=== PATIENT | male | born 1940 | race Caucasian/White ===

== ENCOUNTER 2016-10-10 09:09 | Outpatient (CLI) | payer MEDICARE ==
[~2016-10-10] VITALS: Ht 190.5 cm; Wt 111.7 kg
[~2016-10-10 09:09] MED LIST: ADV1DS IH; ALBU8.5H4 IH; ASP325T PO; ASP81CT; CEPH500C PO; CPR500T PO; CYCL10TA9 PO; DOXA4TAB2; FNST5T; IBUPROFEN; METR500T PO; MMT17NA; MULT1TAB63; OLME20TA5 PO; PRD10T PO; SULF1TAB7 PO; TRAM50TA2 PO; TYLENOL PM; [UNRECOGNIZED DRUG - REMARK]
--- OUTSIDE RECORDS SUMMARY | 2016-10-10 09:13 | XMS REPORT | Continuity of Care Document ---
Author Author [facility] Organization [facility] Address Unknown Phone Unavailable Care Team Providers Care Roll Form Operator Name Role Phone Payton Olivas PCP [phone] Source Comments Some departments are not documenting in the electronic medical record. If you do not see the information that you expected, contact Release of Information in the Health Information Management department at [phone] for further assistance in locating additional records.[facility] Active Allergies and Adverse Reactions No Known Allergies Current Medications Prescription Sig. Disp. Refills Start End Date Status Date fluticasone/salmeterol Inhale 1 Puff by mouth Active (ADVAIR) 250/50 mcg Every 12 Hours. inhalation disk doxazosin (CARDURA) 4 mg Take 1 Tab by mouth Active tablet Daily. predniSONE (DELTASONE) 10 Take 1 Tab by mouth Active mg tablet Daily. fluticasone (FLONASE) 50 Insert 2 Sprays into nose Active mcg/Actuation nasal spray as directed At Bedtime Daily. albuterol (VENTOLIN HFA, Inhale 2 Puffs by mouth Active PROAIR HFA) 90 Daily as needed for mcg/Actuation inhaler Wheezing. aspirin 325 mg tablet Take 1 Tab by mouth 0 0 07/17/20 Active Daily. 09 hyoscyamine (LEVSIN/SL) 1 Tab Every 4 Hours as 30 1 20 Active 0.125 mg tablet needed. 09 levofloxacin (LEVAQUIN) Take 1 Tab by mouth 21 0 07/17/20 Active 250 mg tablet Daily. 09 oxybutynin XL (DITROPAN Take 1 Tab by mouth 20 0 07/17/20 Active XL) 15 mg tablet Daily. 09 oxycodone/acetaminophen Take 1-2 Tabs by mouth 40 0 07/17/20 Active (PERCOCET) 5/325 mg Every 4 Hours as needed 09 tablet for Pain. polymyxin/bacitracin/fina/ Apply to affected area 15g 0 07/17/20 Active HC (CORTISPORIN) 1 % Three Times Daily. 09 topical ointment senna/docusate Take 2 Tabs by mouth 60 0 07/17/20 Active (SENOKOT-S) 8.6/50 mg Daily. 09 tablet bisacodyl (DULCOLAX) 10 Insert or Apply 1 10 3 07/17/20 Active mg rectal suppository Suppository to rectal 09 area as directed Daily as needed. Abdominal discomfort or constipation. Active Problems Problem Noted Date Prostate cancer ([facility]) 07/17/2009 Atrial flutter ([facility]) 05/26/2009 Immunizations Name Dates Previously Given Next Due FLU VACCINE >3YO 07/16/2009 (Preservative Free) Pneumococcal Vaccine 07/16/2009 (23-[place] Adult) Social History Tobacco Use Types Packs/Day Years Used Date Never Smoker Alcohol Use Drinks/Week oz/Week Comments No Last Filed Vital Signs Vital Sign Reading Time Taken Blood Pressure 135/68 07/17/2009 12:00 PM CDT Pulse 63 07/17/2009 12:00 PM CDT Temperature 36.6 C (97.9 F) 07/17/2009 12:00 PM CDT Respiratory Rate - - Height 1.854 m (6' 1") 07/15/2009 11:00 AM CDT Weight 113.944 kg (251 lb 3.2 07/15/2009 11:00 AM CDT oz) Body Mass Index 33.15 07/15/2009 11:00 AM CDT Oxygen Saturation 96% 07/17/2009 12:00 PM CDT Plan of Care Health Maintenance Due Date Last Done Comments Physical (Comprehensive) 01/06/1947 Exam Pertussis Vaccine 01/06/1951 Tetanus Vaccine 01/06/1957 Shingles Vaccine 2000 Prevnar/Pneumovax (#2) 07/16/2010 07/16/2009 Influenza Vaccine 05/25/2015 07/16/2009 Results from Last 3 Months Not on file
[2016-10-10 09:23] VITALS: BP 142/69
[2016-10-10] MEDS ORDERED: RT-ALBUINH IH (09:38)
[2016-10-10] MEDS ORDERED: HYDR-3820 PO (09:38)
[2016-12-12] MEDS ORDERED: PROC5TAB52 PO (09:28)
[2016-12-12] MEDS ORDERED: FLUT1DIS26 INH (09:28)
[2016-12-12] MEDS ORDERED: RT-ALBUINH INH (09:28)
[2016-12-12] MEDS ORDERED: HYDR-3820 PO (09:28)
[2016-12-13] MEDS ORDERED: TAMS0.4C98 PO (14:00)
[2016-12-13] MEDS ORDERED: PROC-1 PO (14:00)
[2016-12-13] MEDS ORDERED: HYDR-3820 PO (14:00)
[2016-12-15] MEDS ORDERED: LEVO500T2 PO (09:33)
== END 2016-10-10 09:35 | disposition home or self-care (01) ==
LOC: PREOP 09:09
PROVIDERS: ATTEND Surgery
DX: Z01.818 Encounter for other preprocedural examination (principal); Z11.2 Encounter for screening for other bacterial diseases; L98.9 Disorder of the skin and subcutaneous tissue, unspecified
CPT/HCPCS: 87081

== ENCOUNTER 2016-10-13 09:10 | Day surgery (SDC) | payer MEDICARE ==
[~2016-10-13] VITALS: Ht 190.5 cm; Wt 111.7 kg
[~2016-10-13 09:10] MED LIST changes: +HYDR-3820 PO; +RT-ALBUINH IH; +ceFAZolin 2 GM IV (SDC ONLY) 50 ML ONE
--- OUTSIDE RECORDS SUMMARY | 2016-10-13 09:13 | XMS REPORT | Continuity of Care Document ---
Author Author [facility] Organization [facility] Address Unknown Phone Unavailable Care Team Providers Care Deputy Program Manager Name Role Phone Payton Olivas PCP [phone] Source Comments Some departments are not documenting in the electronic medical record. If you do not see the information that you expected, contact Release of Information in the Health Information Management department at [phone] for further assistance in locating additional records.[facility] Active Allergies and Adverse Reactions No Known [...] Tab Every 4 Hours as 30 1 07/17/20 Active 0.125 mg tablet needed. 09 levofloxacin [...] Active Problems Problem Noted Date Prostate cancer ([facility]) 07/17/2009 Atrial flutter ([facility]) 05/26/2009 Immunizations Name Dates Previously Given Next [...]
--- OUTSIDE RECORDS SUMMARY | 2016-10-13 09:15 | XMS REPORT | Continuity of Care Document ---
Author Author [facility] Organization [facility] Address Unknown Phone Unavailable Care Team Providers Care Plastic Sheeting Cutter Name Role Phone Payton Olivas PCP [phone] Source Comments Some departments are not documenting in the electronic medical record. If you do not see the information that you expected, contact Release of Information in the Health Information Management department at [phone] for further assistance in locating additional records.[facility] Active Allergies and Adverse Reactions No Known [...] Problem Noted Date Prostate cancer ([facility]) 07/17/2009 Atrial flutter ([facility]) 05/26/2009 Immunizations Name Dates Previously [...]
[2016-10-13] MEDS ORDERED: CATHETER FLUSH 10 ML SYR IV PRN (09:30)
[2016-10-13] MEDS ORDERED: CEFAZOLIN 2 GM/50 ML IV ONE (09:30)
[2016-10-13] MEDS ORDERED: LACTATED RINGERS 1,000 ML IV PRN (09:31)
[2016-10-13 09:43] VITALS: BP 155/84
--- NOTE | 2016-10-13 10:02 | Progress Note-Pre Operative ---
Pre-Operative Progress Note H&P Reviewed The H&P was reviewed, patient examined and no changes noted. Date H&P Reviewed: Oct 13, 2016 Time H&P Reviewed: 10:02 Pre-Operative Diagnosis: lesion right cheek ANNIE BRASHER MD Oct 13, 2016 10:02 am
[2016-10-13] MEDS ORDERED: BUP/EPI 0.25% 1:200,000 (MARCAINE) 30 ML VIAL ONE (10:06)
[2016-10-13] MEDS ORDERED: MIDAZOLAM 2 MG/2 ML (VERSED) VIAL ONE (10:11)
[2016-10-13] MEDS ORDERED: fentaNYL INJECTION 100 MCG/2 ML AMP ONE (10:11)
[2016-10-13] MEDS ORDERED: proPOfol 200 MG/20 ML (DIPRIVAN) VIAL IV ONE ×2 (10:11→10:48)
[2016-10-13] MEDS ORDERED: LACTATED RINGERS 1,000 ML IV ONE (10:15)
[2016-10-13] MEDS ORDERED: TRAM50TA2 PO (11:00)
--- NOTE | 2016-10-13 11:00 | Progress Note-Post Operative ---
Post-Operative Progess Note Pre-Operative Diagnosis lesion right cheek Post-Operative Diagnosis same Post-Op Procedure Note Date of Procedure: Oct 13, 2016 Name of Procedure: excision Anesthesia Type sedation with local Estimated blood loss (mL): minimal Specimen(s) collected skin lesion from right cheek ANNIE BRASHER MD Oct 13, 2016 11:00 am
--- NOTE | 2016-10-13 11:01 | Discharge Inst-Simple/Standard ---
Discharge Inst-Standard Discharge Medications New, Converted or Re-Newed RX: RX on Chart Patient Instructions/Follow Up Plan of Care/Instructions/FU: dressings off in 48 hours. Follow-up with my nurse in 10 days for suture Activity as Tolerated: Yes Discharge Diet: No Restrictions ANNIE BRASHER MD Oct 13, 2016 11:01 am
[2016-10-13 11:45] VITALS: BP 138/73
[2016-10-13 12:15] VITALS: BP 125/79
[2016-10-13 12:45] VITALS: BP 125/79
--- NOTE | 2016-10-13 12:45 | Anesthesia-General Post-Op ---
MAC Patient Condition Mental Status/LOC: Same as Preop Cardiovascular: Satisfactory Nausea/Vomiting: Absent Respiratory: Satisfactory Pain: Controlled Complications: Absent Post Op Complications Complications None Follow Up Care/Instructions Patient Instructions None needed. Anesthesiology Discharge Order Discharge Order Patient is doing well, no complaints, stable vital signs, no apparent adverse anesthesia problems. No complications reported per nursing. ASHLEY ROJAS DO Oct 13, 2016 12:45
--- NOTE | 2016-10-14 08:21 | OPERATIVE REPORT ---
PROCEDURE PHYSICIAN: ANNIE BRASHER DATE OF PROCEDURE: 10/13/2016 PREOPERATIVE DIAGNOSIS: 2 cm lesion of the right cheek. 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 OPERATION: Excision with frozen section. SURGEON: Dr. Brasher. ANESTHESIA: Sedation with local. BLOOD LOSS: Minimal. FLUIDS: 300 mL of crystalloid. TYPE OF WOUND: Type I (clean wound). INDICATION FOR PROCEDURE: This gentleman presented with a raised lesion about 2 cm in diameter involving the right cheek, having the appearance of a carcinoma. He was offered excision with frozen section to confirm the diagnosis and ensure negative margins, should a carcinoma be confirmed. Informed consent was obtained after reviewing the operative details and complications of wound infection, hematoma and recurrence. DESCRIPTION OF PROCEDURE: He was placed supine on the operative table and our anesthesiologist administered sedation, monitoring his vital signs. Prophylactic antibiotics were administered intravenously. Right cheek was prepared and draped in the usual sterile manner. Local anesthesia was achieved using 0.25% Marcaine with epinephrine. A 5 cm elliptical incision was made and the lesion excised down to the subcutaneous tissue. It was oriented with silk sutures and sent for histologic examination. The pathologist confirmed a squamous cell carcinoma with negative margins. Hemostasis was achieved using cautery and the incision closed using interrupted 6-0 nylon sutures. Job ID: [id number] Dictated Date: 10/13/2016 12:20:14 Supervisor Type Disk Quality Control Date: 10/14/2016 08:17:58 / jonnie BURK
[2016-12-12] MEDS ORDERED: PROC5TAB52 PO (09:28)
[2016-12-12] MEDS ORDERED: FLUT1DIS26 INH (09:28)
[2016-12-12] MEDS ORDERED: HYDR-3820 PO (09:28)
[2016-12-12] MEDS ORDERED: RT-ALBUINH INH (09:28)
[2016-12-13] MEDS ORDERED: HYDR-3820 PO (14:00)
[2016-12-13] MEDS ORDERED: TAMS0.4C98 PO (14:00)
[2016-12-13] MEDS ORDERED: PROC-1 PO (14:00)
[2016-12-15] MEDS ORDERED: LEVO500T2 PO (09:33)
== END 2016-10-13 12:45 | disposition home or self-care (01) ==
LOC: SDC 09:10
PROVIDERS: ATTEND Surgery
DX: C44.320 Squamous cell carcinoma of skin of unspecified parts of face (principal)

== ENCOUNTER → 2016-11-23 | Outpatient (CLI) | payer MEDICARE ==
[~2016-11-23] MED LIST changes: +CIPR-225 PO; +FLUT1DIS26 INH; +HYDR-3876 PO; +KETO10TA PO; +LEVO500T2 PO; +NITR-65 PO; +ONDN4T PO; +PROC-1 PO; +PROC5TAB52 PO; +RT-ALBUINH INH; +TAMS0.4C98 PO; -ceFAZolin 2 GM IV (SDC ONLY) 50 ML ONE
--- OUTSIDE RECORDS SUMMARY | 2016-11-23 16:51 | XMS REPORT | Continuity of Care Document ---
Author Author [facility] Organization [facility] Address Unknown Phone Unavailable Care Team Providers Care Speech Therapist Name Role Phone Payton Olivas PCP [phone] Source Comments Some departments are not documenting in the electronic medical record. If you do not see the information that you expected, contact Release of Information in the Health Information Management department at [phone] for further assistance in locating additional records.[facility] Active Allergies and Adverse Reactions No [...] Active Problems Problem Noted Date Prostate cancer ([facility]) 07/17/2009 Atrial flutter ([facility]) 05/26/2009 Immunizations Name Dates Previously [...]
--- NOTE | 2016-11-23 18:29 | Diagnostic Imaging Report ---
INDICATION: A 76-year-old male with left flank pain. COMPARISONS: CT of the abdomen and pelvis dated 03/27/2013. FINDINGS: KUB shows the visualized right lung base to be clear. There is suggestion of some left basilar alveolar infiltrates. Bowel gas pattern shows scattered gas in the small and large bowel with gas seen to the rectum. There is a moderate amount of fecal material in the colon to the rectum. There is a 15 mm stone in the left kidney possibly an inferior pole calyx. A 4-5 mm stone is projected over the inferior pole. A 17 mm calculus is projected over the left superior pole calyx. There are subtle areas of increased attenuation overlying the expected region of the right kidney. Right hydronephrosis is not excluded. IMPRESSION: 1. Multiple left renal calculi largest measuring 17 mm. 2. Areas of ill-defined increased attenuation projected over the expected region of the right kidney. Given these findings, a nonenhanced CT of abdomen and pelvis would be of further value to better assess these findings. Dictated by: Dictated on workstation # [id number]
== END ==
LOC: RAD 16:45
PROVIDERS: ATTEND Nurse Practitioner Family
DX: N20.0 Calculus of kidney (principal); R93.49 Abnormal radiologic findings on diagnostic imaging of other urinary organs
CPT/HCPCS: 74000

== ENCOUNTER → 2016-11-27 | Outpatient (CLI) | payer MEDICARE ==
--- OUTSIDE RECORDS SUMMARY | 2016-11-27 10:56 | XMS REPORT | Continuity of Care Document ---
Author Author [facility] Organization [facility] Address Unknown Phone Unavailable Care Team Providers Care Structural Steel Erector Name Role Phone Payton Olivas PCP [phone] Source Comments Some departments are not documenting in the electronic medical record. If you do not see the information that you expected, contact Release of Information in the Health Information Management department at [phone] for further assistance in locating additional records.[facility] Active Allergies and Adverse Reactions [...] Active Problems Problem Noted Date Prostate cancer ([facility]) 07/17/2009 Atrial flutter ([facility]) 05/26/2009 Immunizations Name Dates Previously Given Next [...]
--- NOTE | 2016-11-27 16:25 | Diagnostic Imaging Report ---
Abdomen at 11:14 a.m. INDICATION: Left nephrolithiasis. As noted on the prior exam of , there are multiple calcific densities overlying the left renal contour including a 1.4 cm calculus overlying the midportion of the left kidney. This calculus is also present on the prior CT abdomen/pelvis exam of 03/27/2013. The 4-5 mm calculus projecting over the inferior pole of left kidney seen previously is also again evident and no different. There is no sign of a calculus along the expected path of left ureter. There is no evidence for nephrolithiasis on the right either. The previous study did suggest there were ill-defined areas of increased density projecting over the right kidney. There still appears to be a 2.5 cm rounded area of increased density overlying the midportion of right kidney. I suspect that this is secondary to superimposition. Even so, I would concur with recommendation of previous exam that CT of the abdomen and pelvis be performed to exclude a renal mass. The overall appearance of the abdomen is otherwise no different. IMPRESSION: 1. The calculi overlying the left kidney seen previously are again visualized and unchanged. There is no sign of a calculus along the expected path of the left ureter. 2. There is no evidence for nephrolithiasis on the right. The rounded area of increased density overlying the right kidney is more likely due to superimposition than to a mass. Recommendations as above. Dictated by: Dictated on workstation # [id number]
== END ==
LOC: RAD 10:52
PROVIDERS: ATTEND Nurse Practitioner Family
DX: R10.84 Generalized abdominal pain (principal)
CPT/HCPCS: 74000

== ENCOUNTER → 2016-11-28 | Outpatient (CLI) | payer MEDICARE ==
--- OUTSIDE RECORDS SUMMARY | 2016-11-28 07:44 | XMS REPORT | Continuity of Care Document ---
Author Author [facility] Organization [facility] Address Unknown Phone Unavailable Care Team Providers Care Dog Handler Or Trainer Name Role Phone Payton Olivas PCP [phone] Source Comments Some departments are not documenting in the electronic medical record. If you do not see the information that you expected, contact Release of Information in the Health Information Management department at [phone] for further assistance in locating additional records.[facility] Active Allergies and Adverse Reactions [...] Active Problems Problem Noted Date Prostate cancer ([facility]) 07/17/2009 Atrial flutter ([facility]) 05/26/2009 Immunizations Name Dates Previously Given Next [...]
--- NOTE | 2016-11-28 12:56 | Diagnostic Imaging Report ---
PROCEDURE: CT abdomen and pelvis without contrast. TECHNIQUE: Multiple contiguous axial images were obtained through the abdomen and pelvis without the use of intravenous contrast. INDICATION: Left flank pain. COMPARISON: 03/27/2013. FINDINGS: There are two nonobstructing left-sided kidney stones, each increased in size. The largest measures a long axis of 13 mm today previously 11 mm. The smallest inferiorly measures 4 mm today, 2 mm on prior. There is no hydronephrosis. Some chronic induration of the perinephric fat I believe scarring is a stable finding. A right-sided renal cyst increased 5.5 cm today, previously 4.4 cm. The spleen is unremarkable. The gallbladder is surgically absent. The liver is unremarkable. The adrenals are negative. The pancreas is unremarkable. Aorta is atherosclerotic and tortuous but nonaneurysmal and stable. There is extensive noninflamed diverticulosis of the sigmoid. There is poor distention of the unopacified urinary bladder limiting its evaluation. The appendix is visualized and normal. There is no ascites, abscess, hematoma, or other fluid collection. The lung bases and the osseous structures are nonacute. IMPRESSION: 1. Two nonobstructive left kidney stones have increased in size from the study of 2012. The right kidney is without calculus but shows an increasing cyst. Remaining findings stable and chronic. Dictated by: Dictated on workstation # [id number]
== END ==
LOC: RAD 07:39
PROVIDERS: ATTEND Urology
DX: N20.0 Calculus of kidney (principal)
CPT/HCPCS: 74176

== ENCOUNTER 2016-11-29 07:07 | Day surgery (SDC) | payer MEDICARE ==
[~2016-11-29] VITALS: Ht 190.5 cm; Wt 106.7 kg
[~2016-11-29 07:07] MED LIST changes: -CIPR-225 PO; -FLUT1DIS26 INH; -HYDR-3876 PO; -KETO10TA PO; -LEVO500T2 PO; -NITR-65 PO; -ONDN4T PO; -PROC-1 PO; -PROC5TAB52 PO; -RT-ALBUINH INH; -TAMS0.4C98 PO
--- OUTSIDE RECORDS SUMMARY | 2016-11-29 07:10 | XMS REPORT | Continuity of Care Document ---
Author Author [facility] Organization [facility] Address Unknown Phone Unavailable Care Team Providers Care Channel Machine Operator Name Role Phone Payton Olivas PCP [phone] Source Comments Some departments are not documenting in the electronic medical record. If you do not see the information that you expected, contact Release of Information in the Health Information Management department at [phone] for further assistance in locating additional records.[facility] Active Allergies and Adverse Reactions No [...] Active Problems Problem Noted Date Prostate cancer ([facility]) 07/17/2009 Atrial flutter ([facility]) 05/26/2009 Immunizations Name Dates Previously [...]
--- NOTE | 2016-11-29 07:11 | Progress Note-Pre Operative ---
Pre-Operative Progress Note H&P Reviewed The H&P was reviewed, patient examined and no changes noted. Date H&P Reviewed: Nov 29, 2016 Time H&P Reviewed: 07:12 Pre-Operative Diagnosis: LT RENAL STONES NATE BARRETO MD Nov 29, 2016 7:11 am
--- OUTSIDE RECORDS SUMMARY | 2016-11-29 07:11 | XMS REPORT | Continuity of Care Document ---
Author Author [facility] Organization [facility] Address Unknown Phone Unavailable Care Team Providers Care Release And Technical Records Clerk Name Role Phone Payton Olivas PCP [phone] Source Comments Some departments are not documenting in the electronic medical record. If you do not see the information that you expected, contact Release of Information in the Health Information Management department at [phone] for further assistance in locating additional records.[facility] Active Allergies and Adverse Reactions No [...] Problems Problem Noted Date Prostate cancer ([facility]) 07/17/2009 Atrial flutter ([facility]) 05/26/2009 Immunizations Name Dates Previously Given Next [...]
--- NOTE | 2016-11-29 07:12 | Progress Note-Pre Operative ---
Pre-Operative Progress Note H&P Reviewed The H&P was reviewed, patient examined and no changes noted. Date H&P Reviewed: Nov 29, 2016 Time H&P Reviewed: 07:11 Pre-Operative Diagnosis: LT RENAL STONES NATE BARRETO MD Nov 29, 2016 7:12 am
--- NOTE | 2016-11-29 07:13 | Progress Note-Post Operative ---
Post-Operative Progess Note Pre-Operative Diagnosis LT RENAL STONES Post-Operative Diagnosis SAME Post-Op Procedure Note Date of Procedure: Nov 29, 2016 Name of Procedure: LT ESWL Anesthesia Type GENERAL NATE BARRETO MD Nov 29, 2016 7:13 am
--- NOTE | 2016-11-29 07:16 | Discharge Inst-Urology ---
Discharge Inst-Urology Discharge Medications New, Converted, or Re-newed RX: RX on Chart Patient Instructions/Follow Up Plan Please make appointment to been seen in office in 2 weeks. KUB prior to it KUB on way home Post ESWL instructions Increase oral fluids for 48 hours and then as needed. Diet and Activity as tolerated. If questions or concerns contact your physician Or seek help at emergency department. NATE BARRETO MD Nov 29, 2016 7:16 am
[2016-11-29] MEDS ORDERED: NS (IVPB) 50 ML ONE (07:30)
[2016-11-29] MEDS ORDERED: ceFAZolin 1,000 MG (ANCEF) VIAL ONE (07:30)
[2016-11-29] MEDS ORDERED: ceFAZolin 1 GM/NS 50 ML IVPB IV ONE ×2 (07:45)
[2016-11-29] MEDS ORDERED: fentaNYL INJECTION 100 MCG/2 ML AMP ONE ×2 (08:00→09:09)
--- NOTE | 2016-11-29 08:01 | Diagnostic Imaging Report ---
INDICATION: Preop renal stone disease. COMPARISON: 11/27/2016. FINDINGS: The large dominant stone projecting over the mid to lower pole of the left kidney measures 11.3 mm in transverse diameter unchanged. Smaller more subtle calculus overlying its lower pole is roughly 3-4 mm. Bowel gas pattern is nonspecific. There is rightward convexity scoliotic lumbar spondylosis and surgical clips in the pelvis. IMPRESSION: Left-sided renal stone burden unchanged radiographically when compared to prior. Dictated by: Dictated on workstation # [id number]
[2016-11-29] MEDS ORDERED: LACTATED RINGERS 1,000 ML IV PRN (08:07)
[2016-11-29] MEDS ORDERED: fentaNYL INJECTION 100 MCG/2 ML AMP IV ONE (08:15)
[2016-11-29 08:27] VITALS: BP 142/82
[2016-11-29] MEDS ORDERED: LIDOCAINE PF 2% 10 ML (XYLOCAINE) AMP ONE (09:09)
[2016-11-29] MEDS ORDERED: MIDAZOLAM 2 MG/2 ML (VERSED) VIAL ONE (09:09)
[2016-11-29] MEDS ORDERED: LACTATED RINGERS 1,000 ML IV ONE (09:09)
[2016-11-29] MEDS ORDERED: proPOfol 200 MG/20 ML (DIPRIVAN) VIAL IV ONE (09:09)
[2016-11-29] MEDS ORDERED: ONDANSETRON 4 MG/2 ML (SDV) Z0FRAN ONE (09:09)
[2016-11-29] MEDS ORDERED: SEVOFLURANE (ULTANE) 15 ML INHAL SOLN ONE (09:10)
[2016-11-29] MEDS ORDERED: KETOROLAC 30 MG/ML VIAL ONE (09:10)
[2016-11-29] MEDS ORDERED: FUROSEMIDE 40 MG/4 ML INJ (LASIX) ONE (09:10)
[2016-11-29] MEDS ORDERED: MEPERIDINE (DEMEROL) INJ 50 MG/ML IVP PRN (10:15)
[2016-11-29] MEDS ORDERED: ONDANSETRON 4 MG/2 ML (SDV) Z0FRAN IVP PRN (10:15)
[2016-11-29] MEDS ORDERED: morphine INJ 10 MG/ML 1ML (SYR OR VIAL) IVP PRN (10:15)
[2016-11-29 10:50] VITALS: BP 137/79
[2016-11-29] MEDS ORDERED: TAMS0.4C98 PO (11:04)
[2016-11-29] MEDS ORDERED: HYDR-3876 PO (11:04)
[2016-11-29] MEDS ORDERED: NITR-65 PO (11:04)
[2016-11-29 11:20] VITALS: BP 128/65
[2016-11-29 11:50] VITALS: BP 152/81
--- NOTE | 2016-11-29 17:33 | Diagnostic Imaging Report ---
INDICATION: Postop ESWL. FINDINGS: A supine view of the abdomen demonstrates a conglomeration of calculi with lines running through these which are probably partially macerated calculi. This measures a total of 16 x 8 mm. Punctate calculus are present just inferior to this. Most of the calculi are in the region of the renal pelvis. IMPRESSION: The previous left renal calculi is macerated into a bunch of smaller calculi all clumped together measuring up to 16 x 8 mm. Dictated by: Dictated on workstation # [id number]
--- NOTE | 2016-11-30 09:36 | OPERATIVE REPORT ---
PROCEDURE PHYSICIAN: NATE BARRETO DATE OF PROCEDURE: 11/29/2016 PREOPERATIVE DIAGNOSIS: Left renal stone. POSTOPERATIVE DIAGNOSIS: Left renal stone. OPERATION: Left ESWL. SURGEON: Dr. Barreto. ANESTHESIA: General. COMPLICATIONS: None. PROCEDURE: Under satisfactory general anesthesia, the patient supine on the ESWL table, left big renal stone was localized. Shocks were delivered KV of 5. A total of 2500 shocks fragmented the stone very nicely. The patient received 40 mg of Lasix and 30 mg of Toradol IV at the end of the procedure. He tolerated the procedure and anesthesia well and was sent to recovery room in stable condition. Job ID: [id number] Dictated Date: 11/29/2016 09:51:01 Broiler Chef Or Cook Date: 11/30/2016 09:33:20 / aris
[2016-12-12] MEDS ORDERED: HYDR-3820 PO (09:28)
[2016-12-12] MEDS ORDERED: RT-ALBUINH INH (09:28)
[2016-12-12] MEDS ORDERED: PROC5TAB52 PO (09:28)
[2016-12-12] MEDS ORDERED: FLUT1DIS26 INH (09:28)
[2016-12-13] MEDS ORDERED: HYDR-3820 PO (14:00)
[2016-12-13] MEDS ORDERED: TAMS0.4C98 PO (14:00)
[2016-12-13] MEDS ORDERED: PROC-1 PO (14:00)
[2016-12-15] MEDS ORDERED: LEVO500T2 PO (09:33)
== END 2016-11-29 12:15 | disposition home or self-care (01) ==
LOC: SDC 07:07
PROVIDERS: ATTEND Urology
DX: N20.0 Calculus of kidney (principal)
CPT/HCPCS: 74000; 87081

== ENCOUNTER 2016-12-01 12:15 | Emergency (ER) | payer MEDICARE ==
[~2016-12-01] VITALS: Ht 190.5 cm; Wt 106.7 kg
[~2016-12-01 12:15] MED LIST changes: +HYDR-3876 PO; +NITR-65 PO; +TAMS0.4C98 PO
--- OUTSIDE RECORDS SUMMARY | 2016-12-01 12:22 | XMS REPORT | Continuity of Care Document ---
Author Author [facility] Organization [facility] Address Unknown Phone Unavailable Care Team Providers Care Chairperson Anesthesiology Name Role Phone Payton Olivas PCP [phone] Source Comments Some departments are not documenting in the electronic medical record. If you do not see the information that you expected, contact Release of Information in the Health Information Management department at [phone] for further assistance in locating additional records.[facility] [...] Problems Problem Noted Date [facility] 07/17/2009 [facility] flutter ([facility] 05/26/2009 Immunizations Name Dates [...]
[2016-12-01] MEDS ORDERED: ONDN4T PO (13:04)
[2016-12-01] MEDS ORDERED: KETO10TA PO (13:04)
[2016-12-01] MEDS: ONDANSETRON 4 MG/2 ML (SDV) Z0FRAN IVP ONE (13:10)
[2016-12-01] MEDS: NS IV 500 ML 500 ML IV SCH ×2 (13:10→14:42)
[2016-12-01 13:13] LABS: BASOPHILS % (AUTO) 1 % (0-10); EOSINOPHILS # (AUTO) 0.2 10^3/uL (0.0-0.3); EOSINOPHILS % (AUTO) 2 % (0-10); LYMPHOCYTES # (AUTO) 0.8 X 10^3 (1.0-4.0); LYMPHOCYTES % (AUTO) 10 % (12-44); MEAN CORPUSCULAR HEMOGLOBIN 29 PG (25-34); MEAN CORPUSCULAR HGB CONC 34 G/DL (32-36); MEAN CORPUSCULAR VOLUME 87 FL (80-99); MEAN PLATELET VOLUME 10.2 FL (7.4-10.4); MONOCYTES # (AUTO) 0.5 X 10^3 (0.0-1.0); MONOCYTES % (AUTO) 6 % (0-12); NEUTROPHILS # (AUTO) 6.6 X 10^3 (1.8-7.8); NEUTROPHILS % (AUTO) 82 % (42-75); PLATELET COUNT 165 10^3/uL (130-400); RED BLOOD COUNT 4.73 10^6/uL (4.35-5.85); WHITE BLOOD COUNT 8.1 10^3/uL (4.3-11.0)
[2016-12-01 13:20] LABS: BILIRUBIN,URINE NEGATIVE (NEGATIVE); KETONES,URINE NEGATIVE (NEGATIVE); LEUKOCYTE ESTERASE ,URINE 1+ (NEGATIVE); NITRITE,URINE NEGATIVE (NEGATIVE); PH,URINE 8 (5-9); PROTEIN,URINE 2+ (NEGATIVE); UROBILINOGEN,URINE NORMAL (NORMAL)
[2016-12-01 13:24] LABS: ALANINE AMINOTRANSFERASE 19 U/L (0-55); ALBUMIN 3.7 G/DL (3.2-4.5); ANION GAP 7 MMOL/L (5-14); ASPARTATE AMINO TRANSFERASE 21 U/L (5-34); BILIRUBIN,TOTAL 0.4 MG/DL (0.1-1.0); BLOOD UREA NITROGEN 12 MG/DL (7-18); BUN/CREATININE RATIO 14; CALCIUM 9.5 MG/DL (8.5-10.1); CARBON DIOXIDE 27 MMOL/L (21-32); CHLORIDE 105 MMOL/L (98-107); CREATININE SERUM 0.83 MG/DL (0.60-1.30); GFR ESTIMATED > 60; GLUCOSE 114 MG/DL (70-105); POTASSIUM 4.2 MMOL/L (3.6-5.0); SODIUM 139 MMOL/L (135-145); TOTAL PROTEIN 6.2 G/DL (6.4-8.2)
--- NOTE | 2016-12-01 13:37 | ED GI ---
General Chief Complaint: Abdominal/GI Problems Stated Complaint: NAUSEA/VOMITING ABD PAIN Nursing Triage Note: PT HAD LITHROTRIPSY DONE ON SUNDAY. PASSING STONES NOW. NOW C/O NAUSEA WITHOUT VOMITTING. CALLED DR. MILLER WHO TOLD PT. TO COME TO ER Sepsis Screen: No Definite Risk Source of Information: Patient Exam Limitations: No Limitations History of Present Illness Time Seen By Provider: 13:35 Initial Comments To ER with reports of persistent vomiting for the past 2 days. This began after awakening from lithotripsy procedure. This was done for a left ureteral stone by Dr. Barreto. He states that he has been passing the stones in his urine is having minimal and very tolerable pain. He is on Zofran, Flomax, Toradol at home but reports that nausea is persistent. He denies any abdominal pain. He did vomit once. He has not had a bowel movement but he is passing gas consistently. Timing/Duration: 1-2 Days Severity/Quality: Mild Location: Generalized Abdomen Activities at Onset: None Associated Symptoms: No Fever/Chills, Nausea/Vomiting Allergies and Home Medications Allergies Coded Allergies: No Known Drug Allergies (Verified , 01/03/08) Home Medications Albuterol Sulfate 8.5 Gm Hfa.aer.ad 1-2 PUFF IH Q4H PRN PRN SHORTNESS OF BREATH (Reported) Fluticasone/Salmeterol 250 Mcg/50 Mcg Inh 1 INHALER IH DAILY (Reported) Hydrocodone/Acetaminophen 1 Each Tablet #30 1-2 TAB PO Q4H PRN PRN PAIN Prescribed by: INDER MACKAY on 11/29/16 1104 Ketorolac Tromethamine 10 Mg Tablet 10 MG PO Q6H (Reported) Nitrofurantoin Monohyd/M-Cryst 100 Mg Capsule 7Days 1 TAB PO BID Prescribed by: INDER MACKAY on 11/29/16 1104 Olmesartan Medoxomil 20 Mg Tablet 20 MG PO DAILY (Reported) Ondansetron HCl 4 Mg Tab 8 MG PO Q4H PRN PRN NAUSEA (Reported) Prednisone 10 Mg Tab 10 MG PO DAILY (Reported) Prochlorperazine Maleate 5 Mg Tablet #10 5 MG PO Q6H PRN PRN NAUSEA/VOMITING Prescribed by: RICH MERINO on 12/01/16 1421 Tamsulosin HCl 0.4 Mg Cap #30 1 CAP PO DAILY Prescribed by: INDER MACKAY on 11/29/16 1104 Review of Systems Constitutional: see HPINo chills, No fever EENTM: No Symptoms Reported Respiratory: No Symptoms Reported Cardiovascular: No Symptoms Reported Gastrointestinal: See HPI Abdominal Pain Nausea Genitourinary: No Symptoms Reported Musculoskeletal: no symptoms reported Skin: no symptoms reported Psychiatric/Neurological: No Symptoms Reported Endocrine: No Symptoms Reported Past Thysqgc-Iyyalr-Wyspyj Hx Patient Social History Alcohol Use: Rarely Uses Recreational Drug Use: No Smoking Status: Current Everyday Smoker Recent Foreign Travel: No Contact w/Someone Who Travel: No Recent Infectious Disease Expo: No Recent Hopitalizations: No Immunizations Up To Date Tetanus Booster (TDap): Unknown Date of Pneumonia Vaccine: Jul 15, 2016 Date of Influenza Vaccine: Jul 09, 2016 Seasonal Allergies Seasonal Allergies: Yes Surgeries HX Surgeries: Yes (ROBOTIC PROSTATECTOMY (MRSA POST-OP)) Surgeries: Gallbladder Respiratory Hx Respiratory Disorders: Yes (ASTHMA) Respiratory Disorders: Asthma, Sleep Apnea Cardiovascular Hx Cardiac Disorders: Yes (HX A FLUTTER-HEART ABALATION) Neurological Hx Neurological Disorders: No Reproductive System Hx Reproductive Disorders: No Genitourinary Hx Genitourinary Disorders: Yes (PROSTATE REMOVED) Genitourinary Disorders: Prostate Problems Gastrointestinal Hx Gastrointestinal Disorders: No Gastrointestinal Disorders: Gall Bladder Disease Musculoskeletal Hx 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) Endocrine Hx Endocrine Disorders: No HEENT HX ENT Disorders: No (UPPER DENTURES) Loss of Vision: Denies Hearing Impairment: Denies Cancer Hx Cancer: Yes Cancer: Prostate Psychosocial Hx Psychiatric Problems: No Integumentary HX Skin/Integumentary Disorder: No Blood Transfusions Hx Blood Disorders: No Family Medical History Significant Family History: No Pertinent Family Hx Physical Exam Vital Signs VS - Last 72 Hours, by Label 12/01/16 12:39 Temp 99.5 Pulse 90 Resp 18 B/P 152/99 Pulse Ox 94 O2 Delivery Room Air Capillary Refill : Less Than 3 Seconds General Appearance: WD/WN no apparent distress HEENT: PERRL/EOMI normal ENT inspection Neck: non-tender full range of motion Respiratory: normal breath sounds no respiratory distress no accessory muscle use Cardiovascular: regular rate, rhythm no murmur Gastrointestinal: normal bowel sounds non tender softNo tenderness, other ( he does have bowel sounds. He states that his abdomen is always distended, maybe only a little more so than usual. Nontender to palpation.) Extremities: normal range of motion non-tender Neurologic/Psychiatric: alert normal mood/affect oriented x 3 Skin: normal color warm/dry Progress/Results/Core Measures Results/Orders Lab Results Laboratory Tests Test 12/01/16 12:53 12/01/16 13:15 Range/Units Alanine Aminotransferase (ALT/SGPT) 19 0-55 U/L Albumin 3.7 3.2-4.5 G/DL Alkaline Phosphatase 39 L 40-136 U/L Anion Gap 7 5-14 MMOL/L Aspartate Amino Transf (AST/SGOT) 21 5-34 U/L BUN/Creatinine Ratio 14 Basophils # (Auto) 0.0 0.0-0.1 10^3/uL Basophils (%) (Auto) 1 0-10 % Blood Urea Nitrogen 12 7-18 MG/DL Calcium Level 9.5 8.5-10.1 MG/DL Carbon Dioxide Level 27 21-32 MMOL/L Chloride Level 105 98-107 MMOL/L Creatinine 0.83 0.60-1.30 MG/DL Eosinophils # (Auto) 0.2 0.0-0.3 10^3/uL Eosinophils (%) (Auto) 2 0-10 % Estimat Glomerular Filtration Rate > 60 Glucose Level 114 H 70-105 MG/DL Hematocrit 41 40-54 % Hemoglobin 13.9 13.3-17.7 G/DL Lymphocytes # (Auto) 0.8 L 1.0-4.0 X 10^3 Lymphocytes (%) (Auto) 10 L 12-44 % Mean Corpuscular Hemoglobin 29 25-34 PG Mean Corpuscular Hemoglobin Concent 34 32-36 G/DL Mean Corpuscular Volume 87 80-99 FL Mean Platelet Volume 10.2 7.4-10.4 FL Monocytes # (Auto) 0.5 0.0-1.0 X 10^3 Monocytes (%) (Auto) 6 0-12 % Neutrophils # (Auto) 6.6 1.8-7.8 X 10^3 Neutrophils (%) (Auto) 82 H 42-75 % Platelet Count 165 130-400 10^3/uL Potassium Level 4.2 3.6-5.0 MMOL/L Red Blood Count 4.73 4.35-5.85 10^6/uL Red Cell Distribution Width 14.0 10.0-14.5 % Sodium Level 139 135-145 MMOL/L Total Bilirubin 0.4 0.1-1.0 MG/DL Total Protein 6.2 L 6.4-8.2 G/DL White Blood Count 8.1 4.3-11.0 10^3/uL Urine Bacteria NEGATIVE /HPF Urine Bilirubin NEGATIVE NEGATIVE Urine Casts NONE /LPF Urine Clarity CLEAR Urine Color YELLOW Urine Crystals NONE /LPF Urine Culture Indicated NO Urine Glucose (UA) NEGATIVE NEGATIVE Urine Ketones NEGATIVE NEGATIVE Urine Leukocyte Esterase 1+ H NEGATIVE Urine Mucus NEGATIVE /LPF Urine Nitrite NEGATIVE NEGATIVE Urine Protein 2+ H NEGATIVE Urine RBC 25-50 H /HPF Urine RBC (Auto) 5+ H NEGATIVE Urine Specific [place] 1.010 L 1.016-1.022 Urine Squamous Epithelial Cells NONE /HPF Urine Urobilinogen NORMAL NORMAL MG/DL Urine WBC RARE /HPF Urine pH 8 5-9 My Orders Orders-RICH MERINO APRN Cbc With Automated Diff (12/01/16 13:05) Comprehensive Metabolic Panel (12/01/16 13:05) Ua Culture If Indicated (12/01/16 13:05) Saline Lock/Iv-Start (12/01/16 13:05) Ondansetron Injection (Zofran Injectio (12/01/16 13:15) Ns Iv 500 Ml (Sodium Chloride 0.9%) (12/01/16 13:15) Acute Abd Series (12/01/16 13:21) Prochlorperazine Injection (Compazine In (12/01/16 13:45) Diphenhydramine Injection (Benadryl Inje (12/01/16 13:45) Ns Iv 500 Ml (Sodium Chloride 0.9%) (12/01/16 13:45) Ketorolac Injection (Toradol Injection) (12/01/16 14:30) Medications Given in ED Current Medications Medications Dose Ordered Sig/Renae Route Start Time Stop Time Status Last Admin Dose Admin Diphenhydramine HCl 12.5 mg ONCE ONCE IVP 12/01/16 13:45 12/01/16 13:46 DC 12/01/16 14:03 12.5 MG Ondansetron HCl 4 mg ONCE ONCE IVP 12/01/16 13:15 12/01/16 13:16 DC 12/01/16 13:10 4 MG Prochlorperazine Edisylate 5 mg ONCE ONCE IV 12/01/16 13:45 12/01/16 13:46 DC 12/01/16 14:05 5 MG Vital Signs/I&O Vital Sign - Last 12Hours 12/01/16 12:39 Temp 99.5 Pulse 90 Resp 18 B/P 152/99 Pulse Ox 94 O2 Delivery Room Air Blood Pressure Mean: 116 Diagnostic Imaging Diagonstic Imaging: Xray Comments NAME: JAMES MENENDEZ [facility] REC#: [id number] PT STATUS: REG ER : 1940 PHYSICIAN: RICH MERINO APRN ADMIT DATE: 12/01/16/ER Draft Date of Exam:12/01/16 ACUTE ABD SERIES INDICATION: Lithotripsy on Sunday. Passing stones with nausea and vomiting. Portable chest shows minimal discoid atelectasis in the left lung base. No infiltrates are present. Heart is not enlarged. The lungs are otherwise well-aerated. Heart is not enlarged. The abdomen shows comminuted stone in the lower pole left kidney which shows similar overall volume. No calculi are seen along the ureteral path. Bowel gas pattern appears normal with no distended bowel loops. Normal stool pattern throughout the colon. IMPRESSION: 1. Mild atelectasis left lung base. 2. Comminuted calculus lower pole calyx, left kidney. Dictated on workstation # [id number] Dict: 12/01/16 1336 Trans: 12/01/16 1343 [facility] [id number] Interpreted by: KOLTON TDIWELL MD Electronically signed by: Departure Communication Progress Notes 1410-no improvement after 4 mg of IV Zofran. At this time 5 mg of IV Compazine and 12.5 mg of IV Benadryl has been given. 1630-nausea is quite a bit better. No adverse effects from the Compazine/ Benadryl. He states he is a little sleepy however. He reports some increasing left flank pain and he has not had his dose of Toradol yet today due to the nausea so we will give a dose IV and he wishes to go home after that. Impression Impression: Primary Impression: Nausea and vomiting Qualified Code: R11.2 - Nausea with vomiting, unspecified Disposition: 01 HOME, SELF-CARE Condition: Stable Departure-Patient Inst. Decision time for Depature: 14:00 Referrals: JAMISON BILLY MD (PCP/Family) Primary Care Physician Patient Instructions: Nausea and Vomiting, Adult Add. Discharge Instructions: 1. Return to ER for any fevers, intolerable pain, inability to urinate, uncontrollable nausea. All discharge instructions reviewed with patient and/or family. Voiced understanding. Scripts Prochlorperazine Maleate (Compazine)5 Mg Tablet5 Mg PO Q6H PRN NAUSEA/VOMITING # 10 TAB Prov:RICH MERINO APRN 12/01/16 Copy Copies To 1: JAMISON BILLY MD; NATE BARRETO MD, PETER J APRN Dec 01, 2016 13:37
--- NOTE | 2016-12-01 13:43 | Diagnostic Imaging Report ---
INDICATION: Lithotripsy on Sunday. Passing stones with nausea and vomiting. Portable chest shows minimal discoid atelectasis in the left lung base. No infiltrates are present. Heart is not enlarged. The lungs are otherwise well-aerated. Heart is not enlarged. The abdomen shows comminuted stone in the lower pole left kidney which shows similar overall volume. No calculi are seen along the ureteral path. Bowel gas pattern appears normal with no distended bowel loops. Normal stool pattern throughout the colon. IMPRESSION: 1. Mild atelectasis left lung base. 2. Comminuted calculus lower pole calyx, left kidney. Dictated by: Dictated on workstation # [id number]
[2016-12-01 13:47] LABS: WBC,URINE RARE /HPF
[2016-12-01] MEDS: diphenhydrAMINE 50 MG/ML INJ (BENADRYL) IVP ONE (14:03)
[2016-12-01] MEDS: PROCHLORPERAZINE 10 MG/2ML INJ (COMPAZINE) IV ONE (14:05)
[2016-12-01] MEDS ORDERED: PROC5TAB52 PO (14:21)
[2016-12-01] MEDS: KETOROLAC 30 MG/ML VIAL IVP ONE (14:41)
[2016-12-01 14:45] VITALS: BP 135/73
[2016-12-12] MEDS ORDERED: PROC5TAB52 PO (09:28)
[2016-12-12] MEDS ORDERED: FLUT1DIS26 INH (09:28)
[2016-12-12] MEDS ORDERED: RT-ALBUINH INH (09:28)
[2016-12-12] MEDS ORDERED: HYDR-3820 PO (09:28)
[2016-12-13] MEDS ORDERED: PROC-1 PO (14:00)
[2016-12-13] MEDS ORDERED: HYDR-3820 PO (14:00)
[2016-12-13] MEDS ORDERED: TAMS0.4C98 PO (14:00)
[2016-12-15] MEDS ORDERED: LEVO500T2 PO (09:33)
== END 2016-12-01 14:45 | disposition home or self-care (01) ==
LOC: EDUNIT# 12:15 → ER 12:18
DX: R11.2 Nausea with vomiting, unspecified (principal); N20.0 Calculus of kidney; F17.210 Nicotine dependence, cigarettes, uncomplicated; Z79.899 Other long term (current) drug therapy; Z98.890 Other specified postprocedural states
CPT/HCPCS: 36415; 74022; 80053; 81000; 85025; 96374; 96375

== ENCOUNTER → 2016-12-04 | Outpatient (CLI) | payer MEDICARE ==
[~2016-12-04] MED LIST changes: +CIPR-225 PO; +FLUT1DIS26 INH; +KETO10TA PO; +LEVO500T2 PO; +ONDN4T PO; +PROC-1 PO; +PROC5TAB52 PO; +RT-ALBUINH INH
--- OUTSIDE RECORDS SUMMARY | 2016-12-04 05:41 | XMS REPORT | Continuity of Care Document ---
Author Author [facility] Organization [facility] Address Unknown Phone Unavailable Care Team Providers Care Brand Representative Name Role Phone Payton Olivas PCP [phone] Source Comments Some departments are not documenting in the electronic medical record. If you do not see the information that you expected, contact Release of Information in the Health Information Management department at [phone] for further assistance in locating additional records.[facility] Active Allergies and Adverse Reactions [...] Problem Noted Date Prostate cancer ([facility]) 07/17/2009 Atrial flutter ([facility]) 05/26/2009 Immunizations Name Dates Previously Given Next [...]
== END ==
LOC: PREOP 05:38
PROVIDERS: ATTEND Urology
DX: Z01.818 Encounter for other preprocedural examination (principal)

== ENCOUNTER → 2016-12-19 | Outpatient (CLI) | payer MEDICARE ==
--- NOTE | 2016-12-19 20:22 | Diagnostic Imaging Report ---
EXAMINATION: KUB. INDICATION: Left ureteric stone and renal stones. FINDINGS: When compared to 12/13/2016, there are new calcifications on the left side of the pelvis compatible with distal left ureteric stones. Previously seen more proximal calcification is now seen distally compatible with progression of left ureteric stone and stone fragments likely related to prior lithotripsy. The calcifications are up to 7 mm in size within the distal left ureter. The stone fragments involve 2.4 cm length of the distal left ureter extending to the UVJ. 4 mm stones in the upper and lower left kidney are seen. No definite right kidney stones. Surgical clips in the upper right abdomen seen and on the left side of the pelvis. IMPRESSION: Multiple stone fragments seen in the distal 2.5 cm of left ureter extending to the UVJ. Also left kidney stones up to 4 mm seen. Dictated by: Dictated on workstation # [id number]
== END ==
LOC: RAD 14:57
PROVIDERS: ATTEND Urology
DX: N20.2 Calculus of kidney with calculus of ureter (principal)
CPT/HCPCS: 74000

== ENCOUNTER 2016-12-20 07:53 | Day surgery (SDC) | payer MEDICARE ==
[~2016-12-20] VITALS: Ht 193 cm; Wt 108.9 kg
[~2016-12-20 07:53] MED LIST changes: -CIPR-225 PO
[2016-12-20 07:55] VITALS: BP 141/81
[2016-12-20] MEDS ORDERED: cefTRIAXone 1 GM/NS 50 ML IVPB IV ONE ×2 (08:15)
[2016-12-20] MEDS ORDERED: PROCHLORPERAZINE 10 MG/2ML INJ (COMPAZINE) IV ONE (08:15)
--- NOTE | 2016-12-20 08:16 | Progress Note-Pre Operative ---
Pre-Operative Progress Note H&P Reviewed The H&P was reviewed, patient examined and no changes noted. Date H&P Reviewed: Dec 20, 2016 Time H&P Reviewed: 08:15 Pre-Operative Diagnosis: LT URETERAL STONES NATE BARRETO MD Dec 20, 2016 8:16 am
--- NOTE | 2016-12-20 08:27 | Diagnostic Imaging Report ---
KUB. INDICATION: Left-sided stone. FINDINGS: Multiple calcifications up to 3 mm are seen in the left flank may relate to kidney stones. There are multiple stone fragments along the most distal aspect of the left ureter over length of 2.5 CM. The largest stone fragment is 7 mm in size. No definitive right kidney or ureteric stones. Surgical clips in the upper right abdomen and left pelvis seen. IMPRESSION: 1. Multiple stone fragments up to 7 mm in the most distal aspect of the left ureter. 2. Tiny left flank calcifications up to 3 mm in size could relate to kidney stones. Dictated by: Dictated on workstation # [id number]
[2016-12-20] MEDS: LACTATED RINGERS 1,000 ML IV PRN ×2 (08:35→09:55)
[2016-12-20] MEDS ORDERED: fentaNYL INJECTION 100 MCG/2 ML AMP ONE ×2 (09:09→10:17)
[2016-12-20] MEDS ORDERED: proPOfol 200 MG/20 ML (DIPRIVAN) VIAL IV ONE ×2 (09:09→10:08)
[2016-12-20] MEDS ORDERED: RT-ALBUTEROL SULF 2.5 MG/3 ML PRE-MIX VIAL INH ONE (09:15)
[2016-12-20] MEDS ORDERED: LACTATED RINGERS 1,000 ML IV ONE ×2 (09:31→10:03)
[2016-12-20] MEDS ORDERED: ROCURONIUM 50 MG/5 ML (ZEMURON) VIAL IV ONE (09:31)
[2016-12-20] MEDS ORDERED: SEVOFLURANE (ULTANE) 15 ML INHAL SOLN ONE (09:31)
[2016-12-20] MEDS ORDERED: ONDANSETRON 4 MG/2 ML (SDV) Z0FRAN ONE (09:31)
[2016-12-20] MEDS ORDERED: PHENYLEPHRINE 100 MCG/ML 10 ML (ANESTHESIA) SYR ONE (10:03)
[2016-12-20] MEDS ORDERED: NEOSTIGMINE (BLOXIVERZ ) 1 MG/1ML 10 ML VIAL ONE (10:09)
[2016-12-20] MEDS ORDERED: GLYCOPYRROLATE 0.2 MG/ML (ROBINUL) 2 ML VIAL ONE (10:09)
[2016-12-20] MEDS ORDERED: KETOROLAC 30 MG/ML VIAL ONE (10:55)
[2016-12-20] MEDS ORDERED: FUROSEMIDE 40 MG/4 ML INJ (LASIX) ONE (10:55)
[2016-12-20] MEDS ORDERED: morphine INJ 10 MG/ML 1ML (SYR OR VIAL) IVP PRN (11:30)
[2016-12-20] MEDS ORDERED: MEPERIDINE (DEMEROL) INJ 50 MG/ML IVP PRN (11:30)
--- NOTE | 2016-12-20 11:30 | Progress Note-Post Operative ---
Post-Operative Progess Note Surgeon (s)/[place]ongsman (s) Surgeon NATE BARRETO MD [place]: N/A Pre-Operative Diagnosis LT URETERAL STONES Post-Operative Diagnosis SAME Post-Op Procedure Note Date of Procedure: Dec 20, 2016 Name of Procedure Performed: CYSTO, LT URETEROSCOPY WITH STONE LITHO, ATTEMPTED JJ STENT, AND ESWL Description of the Procedure: ABOVE Findings of the Procedure MULTIPLE STONE FRAGMENTS DISTAL LT URETER Anesthesia Type GENERAL Estimated blood loss (mL): N/A Specimen(s) collected/removed N/A NATE BARRETO MD Dec 20, 2016 11:29 am
--- NOTE | 2016-12-20 11:31 | Discharge Inst-Urology ---
Discharge Inst-Urology Discharge Medications New, Converted, or Re-newed RX: RX on Chart Patient Instructions/Follow Up Plan Please make appointment to been seen in office SATURDAY 12/23O, SHANNEN PRIOR TO IT SHANNEN ON WAY HOME POST ESWL INSTRUCTIONS Increase oral fluids for 48 hours and then as needed. Diet and Activity as tolerated. If questions or concerns contact your physician Or seek help at emergency department. NATE BARRETO MD Dec 20, 2016 11:31 am
[2016-12-20 12:20] VITALS: BP 106/60
[2016-12-20 12:50] VITALS: BP 111/67
[2016-12-20] MEDS ORDERED: CIPR-225 PO (13:09)
[2016-12-20 13:20] VITALS: BP 114/68
--- NOTE | 2016-12-20 13:34 | Progress Note-Post Operative ---
Post-Operative Progess Note Surgeon (s)/Tube Mill Operator (s) Surgeon NATE BARRETO MD Tube Mill Operator: N/A Pre-Operative Diagnosis LT URETERAL STONES Post-Operative Diagnosis SAME AND SMALL BLADDER TUMOR Post-Op Procedure Note Date of Procedure: Dec 20, 2016 Name of Procedure Performed: TURBT Description of the Procedure: ABOVE Findings of the Procedure MULTIPLE STONE FRAGMENTS DISTAL LT URETER AND INCIDENTAL BLADDER TUMOR Anesthesia Type GENERAL Estimated blood loss (mL): N/A Specimen(s) collected/removed BLADDER TUMOR NATE BARRETO MD Dec 20, 2016 1:34 pm
[2016-12-20 13:45] VITALS: BP 114/68
--- NOTE | 2016-12-20 17:30 | Diagnostic Imaging Report ---
KUB. COMPARISON: 12/20/2016. INDICATION: Post lithotripsy. FINDINGS: There are decreased stone fragments seen in the distal aspect of the left ureter probably related to interval lithotripsy. There is also suggestion of stones or stone fragments now seen projecting around the left L4 transverse process up to 6 mm in size which may relate to [id number] left ureteric stones. Other calcifications in the pelvis are likely phleboliths. Surgical clips in the pelvis and upper right abdomen seen. IMPRESSION: Findings suggestive of stone fragments in the distal most aspect of the left ureter and in the [id number]-rt-[id number] left ureter about the L4 level. Dictated by: Dictated on workstation # [id number]
--- NOTE | 2016-12-21 12:44 | OPERATIVE REPORT ---
PROCEDURE PHYSICIAN: NATE BARRETO DATE OF PROCEDURE: 12/20/2016 PREOPERATIVE DIAGNOSIS: 1. Left distal ureteral stone. 2. Incidental small bladder tumor. POSTOPERATIVE DIAGNOSIS: 1. Left distal ureteral stone. 2. Incidental small bladder tumor. OPERATION: 1. Cystoscopy. 2. Left ureteroscopy with stone lithotripsy. 3. Attempted insertion of stent. 4. Left ESWL. 5. Transurethral resection of bladder tumor. SURGEON: Venkat. ANESTHESIA: General. COMPLICATIONS: None. PROCEDURE: Incidentally found small bladder tumor on the right side just above and lateral to the ureteral orifices it was completely resected with biopsy forceps and the base sent separately for diagnosis and staging. There was no bleeding. The patient tolerated the procedure and anesthesia well. Under satisfactory general anesthesia, the patient position in lithotomy position, the genitalia were prepped and draped in the usual sterile fashion. Cystoscope was introduced under vision, the anterior urethra was normal. The prostate was absent. The bladder neck opened The left ureteral orifice, intramural portion, was dilated two accommodate a 6.9-Slovenian semirigid ureteroscope The stone fragments were visualized. They were broken up with lithoclast. There was one fragment I could not get to it because of the curve of the ureter and the semirigid ureteroscope not allowing me to do so. I discontinued further attempt. Removed the ureteroscope, passed the cystoscope and I attempted to pass a 6-Slovenian ureteral catheter stent-type, double-J but I was unable again to bypass that fragment so I elected not to pursue further for voiding problems so I went ahead and moved the patient ESWL room and the ESWL table. The stone fragments were visualized, especially that the remaining fragment 3000 shocks a KV of 6 completely fragmented the stone that was hardly seen. The patient received 30 mg of Toradol and 40 mg of Lasix IV at the end of the procedure. He tolerated the procedure and anesthesia well and was sent to recovery room in stable condition. Job ID: [id number] Dictated Date: 12/20/2016 11:16:05 Floor Assembler Date: 12/21/2016 12:32:05 / rickey BURK
--- OUTSIDE RECORDS SUMMARY | 2017-01-14 04:07 | XMS REPORT | Continuity of Care Document ---
Author Author [facility] Organization [facility] Address Unknown Phone Unavailable Care Team Providers Care Ehr Trainer Name Role Phone Payton Olivas PCP [phone] Source Comments Some departments are not documenting in the electronic medical record. If you do not see the information that you expected, contact Release of Information in the Health Information Management department at [phone] for further assistance in locating additional records.[facility] Active Allergies and Adverse Reactions [...] Active Problems Problem Noted Date Prostate cancer ([facility]) 07/17/2009 Atrial flutter ([facility]) 05/26/2009 Immunizations Name Dates Previously Given [...] 2000 Prevnar/Pneumovax (#2) 07/16/2010 07/16/2009 Influenza Vaccine 05/25/2017 07/16/2009 Results from Last 3 Months Not on file
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
== END 2016-12-20 13:45 | disposition home or self-care (01) ==
LOC: DELPENDDIS → SDC 07:53
PROVIDERS: ATTEND Urology
DX: N20.1 Calculus of ureter (principal); D49.4 Neoplasm of unspecified behavior of bladder
CPT/HCPCS: 74000; 87081; 88305; 88307; 94640; 94664; 94760

== ENCOUNTER → 2017-01-01 | Outpatient (CLI) | payer MEDICARE ==
[~2017-01-01] MED LIST changes: +CIPR-225 PO
--- NOTE | 2017-01-01 15:46 | Diagnostic Imaging Report ---
INDICATION: Left flank pain, followup renal stones. DISCUSSION: Single view of the abdomen was obtained, comparison 12/20/2016. Previously demonstrated cluster of stones projected over the mid left ureter and distal left ureter is no longer visualized, likely passed or removed. Tiny nonobstructing renal calculi are noted within both renal beds. 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 IMPRESSION: 1. Previously demonstrated calcific densities along the course of the mid and distal left ureter are no longer visualized. 2. Suspect additional punctate nonobstructing bilateral renal calculi. Dictated by: Dictated on workstation # [id number]
== END ==
LOC: RAD 15:06
PROVIDERS: ATTEND Urology
DX: N20.0 Calculus of kidney (principal)
CPT/HCPCS: 74000

== ENCOUNTER 2017-03-30 09:08 | Outpatient (RCR) | payer MEDICARE | END 2017-06-23 | disposition home or self-care (01) | LOC: ONC 09:08 | PROVIDERS: ATTEND Internal Medicine Hematology & Oncology | DX: C67.6 Malignant neoplasm of ureteric orifice (principal); L94.9 Localized connective tissue disorder, unspecified; J45.909 Unspecified asthma, uncomplicated; E66.9 Obesity, unspecified; Z68.31 Body mass index [BMI] 31.0-31.9, adult; Z85.46 Personal history of malignant neoplasm of prostate; Z79.52 Long term (current) use of systemic steroids | CPT/HCPCS: 99214 ==

== ENCOUNTER → 2017-11-27 | Outpatient (CLI) | payer MEDICARE ==
--- NOTE | 2017-11-27 12:59 | Diagnostic Imaging Report ---
INDICATION: Knee pain. Previous surgery. COMPARISON: None. FINDINGS: Three radiographic views of the right knee were obtained. Postsurgical changes of partial knee replacement involving the medial femoral condyle and medial tibial plateau are noted. Orthopedic components appear to be well positioned and well seated. There is no evidence of periprosthetic fracture or loosening. No unexpected radiopaque foreign bodies are seen. There is mild joint space narrowing with likely early subchondral sclerotic change in regards to the lateral tibiofemoral compartment. There is no acute fracture or dislocation. There does, however, appear to be a small suprapatellar joint effusion. IMPRESSION: 1. Small suprapatellar joint effusion, but no radiographic evidence of acute fracture or dislocation of the right knee. 2. Expected postsurgical changes as described above. No evidence of hardware fracture or failure. Dictated by: Dictated on workstation # [id number]
== END ==
LOC: RAD 11:51
PROVIDERS: ATTEND Nurse Practitioner Family
DX: M25.461 Effusion, right knee (principal); Z98.890 Other specified postprocedural states
CPT/HCPCS: 73562

== ENCOUNTER 2018-08-14 10:13 | Inpatient (IN) | payer MEDICARE ==
[~2018-08-14] VITALS: Ht 190.5 cm; Wt 94.4 kg
[~2018-08-14 10:13] MED LIST changes: +AMOX-358 PO; +FLUT1DIS26 IH; +GABA-486 PO; +MORP-33 PO; +NAPR1TAB25 PO; +OLME20TA24 PO
--- OUTSIDE RECORDS SUMMARY | 2018-08-14 10:50 | XMS REPORT | Clinical Summary ---
Author Author [facility] Organization [facility] Address Unknown Phone Unavailable Care Team Providers Care Per Diem Nurse Name Role Phone PCP Unavailable Allergies Not on File Current Medications Not on file Active Problems Not on file Social History Tobacco Use Types Packs/Day Years Used Date Never Assessed Sex Assigned at Date Recorded Not on file Last Filed Vital Signs Not on file Plan of Treatment Not on file Results Not on filefrom Last 3 Months
--- OUTSIDE RECORDS SUMMARY | 2018-08-14 10:51 | XMS REPORT | Clinical Summary ---
Author Author [facility] Organization [facility] Address Unknown Phone Unavailable Care Team Providers Care Drawstring Knotter Name Role Phone Payton Olivas MD PCP Martín Martinez MD Unavailable Shilpa Akbar MD Unavailable Source Comments Some departments are not documenting in the electronic medical record. If you do not see the information that you expected, contact Release of Information in the Health Information Management department at [phone] for further assistance in locating additional records.[facility] Allergies No Known Allergies Current Medications Prescription Sig. [...] Active Problems Problem Noted Date Prostate cancer (HCC) 07/17/2009 Atrial flutter (HCC) 05/26/2009 Immunizations Name Dates Previously Given Next Due FLU VACCINE >3YO 07/16/2009 (Preservative Free) Pneumococcal Vaccine 07/16/2009 (23-[place]uba Adult) Family History Medical History Relation Name Comments Cancer Father Relation Name Status Comments Father Mother alzhiemers Alive Social History Tobacco Use Types Packs/Day Years Used Date Never Smoker Alcohol Use Drinks/Week oz/Week Comments No Sex Assigned at Date Recorded Not on file Last Filed Vital Signs Vital Sign Reading Time Taken Blood Pressure 135/68 07/17/2009 12:00 PM CDT Pulse 63 07/17/2009 12:00 PM CDT Temperature 36.6 C (97.9 F) 07/17/2009 12:00 PM CDT Respiratory Rate - - Oxygen Saturation 96% 07/17/2009 12:00 PM CDT Inhaled Oxygen - - Concentration Weight 113.9 kg (251 lb 3.2 oz) 07/15/2009 11:00 AM CDT Height 185.4 cm (6' 1") 07/15/2009 11:00 AM CDT Body Mass Index 33.14 07/15/2009 11:00 AM CDT Plan of Treatment Health Maintenance Due Date Last Done Comments PHYSICAL (COMPREHENSIVE) 01[birth year]06/1947 EXAM DTAP/TDAP VACCINES (1 - 01/06/1958 Tdap) SHINGLES RECOMBINANT 01/06/1990 VACCINE (1 of 2) PNEUMONIA (PCV13/PPSV23) 07/16/2010 07/16/2009 VACCINES (2 of 2 - PCV13) INFLUENZA VACCINE 04/24/2018 07/16/2009 Results Not on filefrom Last 3 Months
[2018-08-14] MEDS ORDERED: NS IV 500 ML 500 ML IV ONE (11:02)
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
[2018-08-14 11:09] LABS: BASOPHILS % (AUTO) 0 % (0-10); EOSINOPHILS # (AUTO) 0.1 10^3/uL (0.0-0.3); EOSINOPHILS % (AUTO) 1 % (0-10); HEMATOCRIT 38 % (40-54); HEMOGLOBIN 12.4 G/DL (13.3-17.7); LYMPHOCYTES # (AUTO) 1.2 X 10^3 (1.0-4.0); LYMPHOCYTES % (AUTO) 11 % (12-44); MEAN CORPUSCULAR HEMOGLOBIN 28 PG (25-34); MEAN CORPUSCULAR HGB CONC 32 G/DL (32-36); MEAN CORPUSCULAR VOLUME 88 FL (80-99); MEAN PLATELET VOLUME 8.8 FL (7.4-10.4); MONOCYTES % (AUTO) 9 % (0-12); NEUTROPHILS # (AUTO) 8.6 X 10^3 (1.8-7.8); NEUTROPHILS % (AUTO) 79 % (42-75); PLATELET COUNT 244 10^3/uL (130-400); RED BLOOD COUNT 4.36 10^6/uL (4.35-5.85); RED CELL DISTRIBUTION WIDTH 14.1 % (10.0-14.5); WHITE BLOOD COUNT 10.9 10^3/uL (4.3-11.0)
--- NOTE | 2018-08-14 11:14 | ED General ---
General Chief Complaint: Abdominal/GI Problems Stated Complaint: BLADDER AND LOWER PACK PAIN Source of Information: Patient Exam Limitations: No Limitations History of Present Illness Date Seen by Provider: Aug 14, 2018 Time Seen by Provider: 10:48 Initial Comments Here with report of dysuria with frequency and lower abdominal pain. Overall feels weak. Has low back pain. Was recently hospitalized for diverticulitis with perforation and had urinary tract infection. Currently he is on Augmentin for Proteus mirabilis that appears to have sensitivity to Augmentin. Does report nausea but no vomiting. Denies upper respiratory symptoms, chest pain or breathing problems. Timing/Duration: 1-2 Days Severity: Moderate Associated Systoms: No Chest Pain; Fever/Chills; No Nausea/Vomiting, No Shortness of Air; Weakness Allergies and Home Medications Allergies Coded Allergies: No Known Drug Allergies (Verified , 01/03/08) Home Medications Albuterol Sulfate 1 Puff Puff, 2 PUFF INH Q4H PRN for SHORTNESS OF BREATH, ( Reported) Amoxicillin/Potassium Clav 1 Each Tablet, 1 EACH PO BID Prescribed by: JAMISON HUSSEIN on 08/09/18 0922 Fluticasone/Salmeterol 1 Each Blst.w.dev, 1 PUFF IH DAILY, (Reported) Gabapentin 100 Mg Capsule, 200 MG PO BID, (Reported) TAKES 2 (100MG) CAPSULES Hydrocodone/Acetaminophen 1 Each Tablet, 1 TAB PO Q6H PRN for PAIN-MODERATE, ( Reported) Morphine Sulfate 15 Mg Tablet.er, 15 MG PO BID PRN for PAIN-SEVERE, (Reported) Olmesartan Medoxomil 20 Mg Tablet, 20 MG PO DAILY, (Reported) Prednisone 10 Mg Tab, 10 MG PO DAILY, (Reported) Patient Home Medication List Home Medication List Reviewed: Yes Review of Systems Review of Systems Constitutional: see HPI; No chills, No fever; weakness EENTM: no symptoms reported Respiratory: no symptoms reported; No cough, No short of breath Cardiovascular: edema; No palpitations Gastrointestinal: abdominal pain, nausea; No vomiting Genitourinary: dysuria, frequency, pain Musculoskeletal: joint pain (right knee); No muscle pain Skin: No change in color, No lesions Psychiatric/Neurological: Denies Headache; Weakness All Other Systems Reviewed Negative Unless Noted: Yes Past Udktmdt-Pxnakl-Bwtgls Hx Past Med/Social Hx: Reviewed Nursing Past Med/Soc Hx Patient Social History Alcohol Use: Denies Use Recreational Drug Use: No Smoking Status: Never a Smoker Recent Foreign Travel: No Contact w/Someone Who Travel: No Recent Hopitalizations: Yes (OUT 08/10/18) Immunizations Up To Date Tetanus Booster (TDap): Unknown PED Vaccines UTD: Yes Date of Pneumonia Vaccine: Jul 15, 2016 Date of Influenza Vaccine: Jul 29, 2018 Seasonal Allergies Seasonal Allergies: Yes Past Medical History Surgeries: Yes (ROBOTIC PROSTATECTOMY (MRSA POST-OP 2009)) Gallbladder Respiratory: Yes (ASTHMA) Asthma, Sleep Apnea Currently Using CPAP: Yes Currently Using BIPAP: No Cardiac: Yes (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)) Neurological: No Reproductive Disorders: No Genitourinary: Yes Prostate Problems, Kidney Stones Gastrointestinal: Yes Diverticulosis, Gall Bladder Disease Musculoskeletal: Yes (AUTO-IMMUNE CONNECTIVE TISSUE DISORDER) Endocrine: No HEENT: No Loss of Vision: Denies Hearing Impairment: Denies Cancer: Yes Bladder, Prostate, Skin Did You Recieve Any Treatments: Yes What Type of Treatment Did You: Surgical Intervention Psychosocial: No Integumentary: No Blood Disorders: No Adverse Reaction/Blood Tranf: No Family Medical History Reviewed Nursing Family Hx Dementia 19 MOTHER FH: lung cancer 19 FATHER No Pertinent Family Hx Physical Exam-Suspected Sepsis Physical Exam Vital Signs Vital Signs - First Documented 08/14/18 10:45 Temp 97.6 Pulse 68 Resp 18 B/P (MAP) 148/75 (99) Pulse Ox 97 O2 Delivery Room Air Capillary Refill : Height, Weight, BMI Height: 6'3.00" Weight: 223lbs. 9.0oz. [id number]; 27.9 BMI Method:Stated General Appearance: No Apparent Distress, WD/WN HEENT: PERRL/EOMI, Pharynx Normal Neck: Non Tender, Supple Respiratory: Lungs Clear, Normal Breath Sounds Cardiovascular: Regular Rate, Rhythm, No Murmur Gastrointestinal: Soft, Tenderness (low abdomen bilateral the greatest suprapubic) Back: Normal Inspection, No CVA Tenderness, No Vertebral Tenderness Extremity: Normal Capillary Refill, Normal Range of Motion, Pedal Edema (2+ up to level of mid tibia), Swelling (right knee and bilateral ankles), Other (no erythema or increased warmth to the knee on the right. Mild swelling but not significantly different than the other knee.) Skin: normal color, warm/dry Focused Exam Lactate Level 08/14/18 10:55: Lactic Acid Level 0.53 Lactic Acid Level Laboratory Tests Test 08/14/18 10:55 Lactic Acid Level 0.53 MMOL/L (0.50-2.00) Progress/Results/Core Measures Suspected Sepsis SIRS Temperature: Pulse: Respiratory Rate: Laboratory Tests 08/14/18 10:55: White Blood Count 10.9 Blood Pressure / Mean: 08/14/18 10:55: Lactic Acid Level 0.53 Laboratory Tests 08/14/18 10:55: Creatinine 0.75, INR Comment 1.2, Platelet Count 244, Total Bilirubin 0.4 Results/Orders Lab Results Laboratory Tests Test 08/14/18 10:55 08/14/18 11:18 Range/Units White Blood Count 10.9 4.3-11.0 10^3/uL Red Blood Count 4.36 4.35-5.85 10^6/uL Hemoglobin 12.4 L 13.3-17.7 G/DL Hematocrit 38 L 40-54 % Mean Corpuscular Volume 88 80-99 FL Mean Corpuscular Hemoglobin 28 25-34 PG Mean Corpuscular Hemoglobin Concent 32 32-36 G/DL Red Cell Distribution Width 14.1 10.0-14.5 % Platelet Count 244 130-400 10^3/uL Mean Platelet Volume 8.8 7.4-10.4 FL Neutrophils (%) (Auto) 79 H 42-75 % Lymphocytes (%) (Auto) 11 L 12-44 % Monocytes (%) (Auto) 9 0-12 % Eosinophils (%) (Auto) 1 0-10 % Basophils (%) (Auto) 0 0-10 % Neutrophils # (Auto) 8.6 H 1.8-7.8 X 10^3 Lymphocytes # (Auto) 1.2 1.0-4.0 X 10^3 Monocytes # (Auto) 1.0 0.0-1.0 X 10^3 Eosinophils # (Auto) 0.1 0.0-0.3 10^3/uL Basophils # (Auto) 0.0 0.0-0.1 10^3/uL Prothrombin Time 14.9 H 12.2-14.7 SEC INR Comment 1.2 0.8-1.4 Activated Partial Thromboplast Time 32 24-35 SEC Sodium Level 138 135-145 MMOL/L Potassium Level 4.2 3.6-5.0 MMOL/L Chloride Level 101 98-107 MMOL/L Carbon Dioxide Level 31 21-32 MMOL/L Anion Gap 6 5-14 MMOL/L Blood Urea Nitrogen 19 H 7-18 MG/DL Creatinine 0.75 0.60-1.30 MG/DL Estimat Glomerular Filtration Rate > 60 BUN/Creatinine Ratio 25 Glucose Level 98 70-105 MG/DL Lactic Acid Level 0.53 0.50-2.00 MMOL/L Calcium Level 10.1 8.5-10.1 MG/DL Corrected Calcium 10.7 H 8.5-10.1 MG/DL Total Bilirubin 0.4 0.1-1.0 MG/DL Aspartate Amino Transf (AST/SGOT) 17 5-34 U/L Alanine Aminotransferase (ALT/SGPT) 20 0-55 U/L Alkaline Phosphatase 57 40-136 U/L C-Reactive Protein High Sensitivity 6.16 H 0.00-0.50 MG/DL B-Type Natriuretic Peptide 41.7 <100.0 PG/ML Total Protein 6.3 L 6.4-8.2 GM/DL Albumin 3.3 3.2-4.5 GM/DL Urine Color YELLOW Urine Clarity CLEAR Urine pH 7 5-9 Urine Specific [place] 1.005 L 1.016-1.022 Urine Protein NEGATIVE NEGATIVE Urine Glucose (UA) NEGATIVE NEGATIVE Urine Ketones NEGATIVE NEGATIVE Urine Nitrite NEGATIVE NEGATIVE Urine Bilirubin NEGATIVE NEGATIVE Urine Urobilinogen NORMAL NORMAL MG/DL Urine Leukocyte Esterase NEGATIVE NEGATIVE Urine RBC (Auto) NEGATIVE NEGATIVE Urine RBC NONE /HPF Urine WBC NONE /HPF Urine Squamous Epithelial Cells RARE /HPF Urine Crystals NONE /LPF Urine Bacteria NEGATIVE /HPF Urine Casts NONE /LPF Urine Mucus NEGATIVE /LPF Urine Culture Indicated NO My Orders Orders - TOMY GERARD MD Saline Lock/Iv-Start (08/14/18 11:02) Ns Iv 500 Ml (Sodium Chloride 0.9%) (08/14/18 11:02) Cbc With Automated Diff (08/14/18 11:02) Comprehensive Metabolic Panel (08/14/18 11:02) Blood Culture (08/14/18 11:02) Sputum Culture (08/14/18 11:02) Urinalysis (08/14/18 11:02) Urine Culture (08/14/18 11:02) Protime With Inr (08/14/18 11:02) Partial Thromboplastin Time (08/14/18 11:02) Chest 1 View, Ap/Pa Only (08/14/18 11:02) Saline Lock/Iv-Start (08/14/18 11:02) Vital Signs Adult Sepsis Patie Q15M (08/14/18 11:02) O2 (08/14/18 11:02) Remove Rings In Anticipation O (08/14/18 11:02) Lactic Acid Analyzer (08/14/18 11:02) BNP (08/14/18 11:02) Hs C Reactive Protein (08/14/18 11:02) Ondansetron Injection (Zofran Injectio (08/14/18 11:17) Ct Abdomen/Pelvis W (08/14/18 11:40) Iohexol Injection (Omnipaque 350 Mg/Ml 1 (08/14/18 12:00) Contrast Received (Contrast Received) (08/14/18 12:00) Ns (Ivpb) (Sodium Chloride 0.9%) (08/14/18 12:00) Piperacillin Sodium/Tazobactam (Zosyn Vi (08/14/18 13:15) Hydromorphone Injection (Dilaudid Inject (08/14/18 13:13) Hydromorphone Injection (Dilaudid Inject (08/14/18 13:13) Hydrocortisone Injection (Solu-Cortef In (08/14/18 13:45) Medications Given in ED Current Medications Medications Dose Ordered Sig/Renae Route Start Time Stop Time Status Last Admin Dose Admin Iohexol 100 ml ONCE ONCE IV 08/14/18 12:00 08/14/18 12:01 DC 08/14/18 12:11 100 ML Morphine Sulfate 3 mg ONCE ONCE IVP 08/14/18 12:15 08/14/18 12:16 DC 08/14/18 12:36 3 MG Ondansetron HCl 4 mg STK-MED ONCE .ROUTE 08/14/18 11:17 08/14/18 11:19 DC 08/14/18 11:22 4 MG Piperacillin Sod/ Tazobactam Sod 4.5 gm/Sodium Chloride 100 ml @ 200 mls/hr ONCE ONCE IV 08/14/18 13:15 08/14/18 13:44 08/14/18 13:25 200 MLS/HR Sodium Chloride 250 ml ONCE ONCE IV 08/14/18 12:00 08/14/18 12:01 DC 08/14/18 12:11 80 ML Sodium Chloride 500 ml @ 0 mls/hr Q0M ONCE IV 08/14/18 11:02 08/14/18 11:05 DC 08/14/18 11:21 500 MLS/HR Vital Signs/I&O 08/14/18 10:45 Temp 97.6 Pulse 68 Resp 18 B/P (MAP) 148/75 (99) Pulse Ox 97 O2 Delivery Room Air Capillary Refill : Progress Note : Progress Note Seen and evaluated. IV, labs, UA, chest x-ray, blood cultures and lactic acid ordered. Normal saline 500 mL bolus. I did review previous histories and found urine cultures of which produce was noted and sensitive to Augmentin. Patient is currently on this. We will recheck urine and see if she is having improvement. Still has recent history of perforated diverticulum which was a microperforation. Apparently better and discharged earlier this week. Now worse. We will consider CT abdomen and pelvis pending other results. CT ordered. 1305: CT results noted. I did discuss the case with Dr. Banuelos. Patient will be admitted for IV antibiotics and Dr. Banuelos will see him in consult. I did discuss the case with Dr. 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 Patient is having more severe pain. Dilaudid 1 mg IV given and this did significantly help his pain. Zosyn 4.5 g IV initiated. They did check with radiology and they are unable to do IR percutaneous draining at this time. Patient is noted to have a history of long- term steroid use. Due to concerns for adrenal crisis with the current situation , I will give hydrocortisone 100 mg IV. Admit, inpatient status. Patient and family agree to plan. Diagnostic Imaging Diagonstic Imaging: CT Plain Films/CT/US/NM/MRI: abdomen, pelvis Comments PHYSICIAN: TOMY GERARD MD ADMIT DATE: 08/14/18/ER Draft Date of Exam:08/14/18 CT ABDOMEN/PELVIS W PROCEDURE: CT abdomen and pelvis with contrast. TECHNIQUE: Multiple contiguous axial images were obtained through the abdomen and pelvis after administration of intravenous contrast. DATE: August 14, 2018. COMPARISON: CT abdomen and pelvis August 07, 2018. INDICATION: 78-year-old male, low back and pelvic pain for several days. FINDINGS: There is very mild atelectasis in the right and left lower lobes. Additional visualized portions of the lung bases are clear. The heart is not enlarged. There is no identified pericardial effusion. The liver is normal in size and contour. There is no identified liver lesion. The main, right, and left portal veins are patent. The patient is status post cholecystectomy. There is no intrahepatic or extrahepatic bile duct dilation. The main pancreatic duct is not abnormally dilated. There is fatty replacement of the pancreatic parenchyma, particularly in the region of the pancreatic head. Additional assessment of the pancreatic parenchyma is unremarkable. The spleen is normal in size. The adrenal glands are unremarkable. There is a low-attenuation right renal lesion on axial image 35 which measures up to 6.2 cm in size which has internal attenuation compatible with benign left renal cyst. The urinary collecting systems are not distended. There is no identified renal or ureteral stone. There are does appear to be diffuse urinary bladder wall thickening which potentially could relate to under distention of the urinary bladder, cystitis, and/or chronic outlet obstruction. At least the wall thickening of the upper aspect of the urinary bladder is likely a true abnormality and most likely relates to the adjacent gas containing fluid collection which either relates to an abscess or contained perforation. This will be described below. There is diverticulosis. There is prominent abnormal inflammatory stranding centered in the region of the mid sigmoid colon in the area of diverticular disease on axial image 69 with adjacent gas-containing fluid collection compatible with an abscess and/or contained perforation which measures 4.3 x 4.4 cm in axial dimension. There is no identified pericolonic lymph node. The intestinal tract is not distended. The appendix is best seen on axial image 59 and adjacent sequential images. There is no evidence of acute appendicitis. There is no free intraperitoneal air. There is no drainable fluid collection. There is no sizable volume free pelvic fluid. There are atherosclerotic calcifications. There is no identified abnormally enlarged lymph node within the abdomen or pelvis which meets CT size criteria for adenopathy. There are bilateral fat-containing inguinal hernias. There is a sclerotic lesion of the right proximal femoral epiphysis measuring 16 mm in size with narrow zone of transition. This is stable in size dating back to at least September 30, 2009 suggesting benign etiology. There is a synovial herniation pit at the left femoral head and neck junction. There are multilevel degenerative changes of the spine. There is a chronic-appearing left 10th rib deformity. There is no identified acute bony abnormality. IMPRESSION: CT ABDOMEN AND PELVIS. 1. Findings most compatible with acute diverticulitis at the level of the mid sigmoid colon with adjacent gas-containing fluid collection most likely relating to an abscess and/or contained perforation which measures 4.3 x 4.4 cm in size. No free intraperitoneal air. Dictated on workstation # [id number] Dict: 08/14/18 1241 Trans: 08/14/18 1256 [facility] [id number] Interpreted by: KLARISSA BELTRAN MD Electronically signed by: Diagonstic Imaging: Xray Plain Films/CT/US/NM/MRI: chest Comments VIA [facility]. [place], [place] NAME: RONNIEPHANJAMES [facility] REC#: [id number] PT STATUS: REG ER : 1940 PHYSICIAN: TOMY GERARD MD ADMIT DATE: 08/14/18/ER Draft Date of Exam:08/14/18 CHEST 1 VIEW, AP/PA ONLY INDICATION: Pain. COMPARISON: 04/11/2009. FINDINGS: Single frontal radiographic view of the chest was obtained and demonstrates normal cardiac silhouette and pulmonary vasculature. Cardiac silhouette appears to be exaggerated by pericardial fat. Vasculature is within normal limits. Lungs are clear. There is no focal consolidation, large effusion, nor pneumothorax. Bony structures show no gross acute abnormalities. IMPRESSION: 1. No acute cardiopulmonary process. Dictated on workstation # [id number] Dict: 08/14/18 1211 Trans: 08/14/18 1215 [facility] [id number] Interpreted by: CITLALY CAMILO MD Electronically signed by: Departure Communication (Admissions) Time/Spoke to Admitting Phy: 13:02 Time/Spoke to Consulting Phy: 13:18 Impression Primary Impression: Diverticulitis of intestine Qualified Codes: K57.20 - Diverticulitis of large intestine with perforation and abscess without bleeding Disposition: 09 ADMITTED INPATIENT Condition: Stable Admissions Decision to Admit Reason: Admit from ER (General) Decision to Admit/Date: Aug 14, 2018 Time/Decision to Admit Time: 13:02 Departure-Patient Inst. Referrals: JAMISON HUSSEIN MD (PCP/Family) Primary Care Physician TOMY GERARD MD Aug 14, 2018 11:14
[2018-08-14] MEDS ORDERED: ONDANSETRON 4 MG/2 ML (SDV) Z0FRAN ONE (11:17)
[2018-08-14 11:19] LABS: INR 1.2 (0.8-1.4); PROTHROMBIN TIME PATIENT 14.9 SEC (12.2-14.7)
[2018-08-14 11:27] LABS: ALANINE AMINOTRANSFERASE 20 U/L (0-55); ALBUMIN 3.3 GM/DL (3.2-4.5); ALKALINE PHOSPHATASE 57 U/L (40-136); BILIRUBIN,TOTAL 0.4 MG/DL (0.1-1.0); BUN/CREATININE RATIO 25; CALCIUM 10.1 MG/DL (8.5-10.1); CARBON DIOXIDE 31 MMOL/L (21-32); CHLORIDE 101 MMOL/L (98-107); CREATININE SERUM 0.75 MG/DL (0.60-1.30); GFR ESTIMATED > 60; GLUCOSE 98 MG/DL (70-105); POTASSIUM 4.2 MMOL/L (3.6-5.0); SODIUM 138 MMOL/L (135-145); TOTAL PROTEIN 6.3 GM/DL (6.4-8.2)
[2018-08-14 11:28] LABS: BILIRUBIN,URINE NEGATIVE (NEGATIVE); CLARITY,URINE CLEAR; COLOR,URINE YELLOW; GLUCOSE, URINE (UA) NEGATIVE (NEGATIVE); KETONES,URINE NEGATIVE (NEGATIVE); LEUKOCYTE ESTERASE ,URINE NEGATIVE (NEGATIVE); NITRITE,URINE NEGATIVE (NEGATIVE); PH,URINE 7 (5-9); PROTEIN,URINE NEGATIVE (NEGATIVE); UROBILINOGEN,URINE NORMAL (NORMAL)
[2018-08-14 11:38] LABS: BACTERIA,URINE NEGATIVE /HPF; SQUAMOUS EPITHELIAL CELL,UR RARE /HPF
[2018-08-14] MEDS ORDERED: RECEIVED CONTRAST (Hold Metformin) IV SCH (12:00)
[2018-08-14] MEDS ORDERED: NS 250 ML (IVPB) BAG IV ONE (12:00)
[2018-08-14] MEDS ORDERED: IOHEXOL 350 MG/ML 100 ML (OMNIPAQUE 350) VIAL IV ONE (12:00)
[2018-08-14] MEDS ORDERED: morphine INJ 10 MG/ML 1ML (SYR OR VIAL) IVP ONE (12:15)
--- NOTE | 2018-08-14 12:15 | Diagnostic Imaging Report ---
INDICATION: Pain. COMPARISON: 04/11/2009. FINDINGS: Single frontal radiographic view of the chest was obtained and demonstrates normal cardiac silhouette and pulmonary vasculature. Cardiac silhouette appears to be exaggerated by pericardial fat. Vasculature is within normal limits. Lungs are clear. There is no focal consolidation, large effusion, nor pneumothorax. Bony structures show no gross acute abnormalities. IMPRESSION: 1. No acute cardiopulmonary process. Dictated by: Dictated on workstation # [id number]
--- NOTE | 2018-08-14 12:56 | Diagnostic Imaging Report ---
PROCEDURE: CT abdomen and pelvis with contrast. TECHNIQUE: Multiple contiguous axial images were obtained through the abdomen and pelvis after administration of intravenous contrast. DATE: August 14, 2018. COMPARISON: CT abdomen and pelvis August 07, 2018. INDICATION: 78-year-old male, low back and pelvic pain for several days. FINDINGS: There is very mild atelectasis in the right and left lower lobes. Additional visualized portions of the lung bases are clear. The heart is not enlarged. There is no identified pericardial effusion. The liver is normal in size and contour. There is no identified liver lesion. The main, right, and left portal veins are patent. The patient is status post cholecystectomy. There is no intrahepatic or extrahepatic bile duct dilation. The main pancreatic duct is not abnormally dilated. There is fatty replacement of the pancreatic parenchyma, particularly in the region of the pancreatic head. Additional assessment of the pancreatic parenchyma is unremarkable. The spleen is normal in size. The adrenal glands are unremarkable. There is a low-attenuation right renal lesion on axial image 35 which measures up to 6.2 cm in size which has internal attenuation compatible with benign left renal cyst. The urinary collecting systems are not distended. There is no identified renal or ureteral stone. There are does appear to be diffuse urinary bladder wall thickening which potentially could relate to under distention of the urinary bladder, cystitis, and/or chronic outlet obstruction. At least the wall thickening of the upper aspect of the urinary bladder is likely a true abnormality and most likely relates to the adjacent gas containing fluid collection which either relates to an abscess or contained perforation. This will be described below. There is diverticulosis. There is prominent abnormal inflammatory stranding centered in the region of the mid sigmoid colon in the area of diverticular disease on axial image 69 with adjacent gas-containing fluid collection compatible with an abscess and/or contained perforation which measures 4.3 x 4.4 cm in axial dimension. There is no identified pericolonic lymph node. The intestinal tract is not distended. The appendix is best seen on axial image 59 and adjacent sequential images. There is no evidence of acute appendicitis. There is no free intraperitoneal air. There is no drainable fluid collection. There is no sizable volume free pelvic fluid. There are atherosclerotic calcifications. There is no identified abnormally enlarged lymph node within the abdomen or pelvis which meets CT size criteria for adenopathy. There are bilateral fat-containing inguinal hernias. There is a sclerotic lesion of the right proximal femoral epiphysis measuring 16 mm in size with narrow zone of transition. This is stable in size dating back to at least September 30, 2009 suggesting benign etiology. There is a synovial herniation pit at the left femoral head and neck junction. There are multilevel degenerative changes of the spine. There is a chronic-appearing left 10th rib deformity. There is no identified acute bony abnormality. IMPRESSION: CT ABDOMEN AND PELVIS. 1. Findings most compatible with acute diverticulitis at the level of the mid sigmoid colon with adjacent gas-containing fluid collection most likely relating to an abscess and/or contained perforation which measures 4.3 x 4.4 cm in size. No free intraperitoneal air. Dictated by: Dictated on workstation # [id number]
[2018-08-14] MEDS ORDERED: HYDROmorphone 2 MG/ML VIAL (DILAUDID) IV STA (13:13)
[2018-08-14] MEDS ORDERED: HYDROmorphone 2 MG/ML VIAL (DILAUDID) ONE (13:13)
[2018-08-14] MEDS ORDERED: PIPERACILLIN SODIUM/TAZOBACTAM 4.5 GM in NS (IVPB) 100 ML IV ONE (13:15)
[2018-08-14] MEDS ORDERED: HYDROCORTISONE 100 MG/2 ML (Solu-CORTEF) VIAL IV ONE (13:45)
[2018-08-14 15:00] VITALS: BP 126/88
[2018-08-14] MEDS ORDERED: ONDANSETRON 4 MG/2 ML (SDV) Z0FRAN IV PRN (15:00)
[2018-08-14] MEDS ORDERED: HYDROmorphone 2 MG/ML VIAL (DILAUDID) IV PRN (15:00)
--- NOTE | 2018-08-14 15:20 | CONSULTATION REPORT ---
DATE OF SERVICE: ATTENDING PRIMARY CARE PHYSICIAN: Dr. Beverly Hussein. ADMITTING PHYSICIAN: Dr. Cotter. HISTORY OF PRESENT ILLNESS: The patient is a 78-year-old male known to us. We had initially seen him on 08/07 due to a 2-day history of left lower quadrant abdominal pain. He had reported that the pain became more localized in the left lower abdominal quadrant and persisted. A CT scan was performed, which did show significant sigmoid diverticulitis as well as small contained bubbles of air, which may have included a contained microperforation. The pain was a chief complaint at that time. He had not reported any fever or chills. Upon further questioning, he reports that he has had episodic pain in the left lower abdominal quadrant for the past 10 years and did have another episode requiring hospitalization approximately 6 years ago. He was treated conservatively with bowel rest and IV antibiotics and his white count came back to normal and his pain resolved over 36 hours. He continued to do well and his diet was started to clear liquids and advanced to regular without any issues. He was also afebrile throughout the hospital course. The patient returned to the Emergency Department with recurrent abdominal pain in the left lower abdominal quadrant. His white count is on the upper limits of normal at 10 and he is afebrile again; however, he has recurrent pain. A repeat CT scan was performed, which did show a contained abscess as well as diverticulitis. At this time, due to his severity in recurrence of the diverticulitis, he will most likely need to have this portion of the sigmoid colon resected. Ideally, we would medically manage and first with IV antibiotics and bowel rest as well as a percutaneous drain. Once he is feeling better and his pain is controlled, we would proceed with bowel preparation and then a one-stage colon resection and anastomosis. We will continue with conservative management for now and start him back on Zosyn, which he responded to well initially. PAST MEDICAL HISTORY: Autoimmune connective tissue disorder, history of atrial fibrillation, history of prostate cancer, asthma, sleep apnea and nephrolithiasis. PAST SURGICAL HISTORY: Robotic-assisted prostatectomy, cardiac ablation, open cholecystectomy. ALLERGIES: No known drug allergies. MEDICATIONS: Albuterol 2 puffs q.4 hours p.r.n., fluticasone 1 puff daily, hydrocodone p.r.n., olmesartan, medoxomil 20 mg daily, prednisone 10 mg daily, tamsulosin 0.4 mg daily, prochlorperazine 10 mg q.6 hours p.r.n. SOCIAL HISTORY: Negative smoke, negative alcohol. FAMILY HISTORY: Father, lung cancer. REVIEW OF SYSTEMS: Well-nourished male currently in no acute distress. He is not experiencing any shortness of breath, no difficulty breathing. No chest pain, palpitations, diaphoresis. No nausea, but vomiting; however, does have pain in the left lower abdominal quadrant. He states he is having bowel movements. He does not report any red blood per rectum nor any dark tarry stools. No fever, chills, no recent inadvertent weight loss. All other review of systems is negative. PHYSICAL EXAMINATION: VITAL SIGNS: Temperature 98.8, blood pressure 118/78, pulse 60, respirations 18, pulse ox 96% on room air. CHEST: Clear. Good breath sounds bilaterally. HEART: Regular, no murmurs. EXTREMITIES: No lower extremity edema, negative Homans sign. HEENT: No scleral icterus. NECK: No cervical lymphadenopathy. ABDOMEN: Soft, nondistended. There is pain in the left lower abdominal quadrant, was only voluntary guarding, no rebound. No peritoneal signs. SKIN: Warm, dry. LABORATORY DATA: WBC 10.9, hemoglobin 12.4, hematocrit 38, platelets 244, BUN 19 and creatinine 0.75. ASSESSMENT AND PLAN: A 78-year-old male with complicated sigmoid diverticulitis with a pericolonic abscess, which is consistent with a Hinchey classification stage I. He is stable with normal white count and afebrile. We will recommend conservative management with bowel rest and IV antibiotics as well as consult interventional radiology for possible drain placement. Due to his complicated diverticulitis as well as previous episodes, he will most likely need a sigmoidectomy of the involved segment of colon. However, due to his age and medical comorbidities, we would recommend a laparoscopic approach if feasible as well as I stage colon resection and anastomosis. We will also consult urology for ureteral stent placement perioperatively. For now, we will proceed with bowel rest and eventual clear liquids as well as IV antibiotics. Job ID: [id number] DocumentID: [id number] Dictated Date: 08/14/2018 14:39:37 Employment Officer Date: 08/14/2018 15:19:41 Dictated By: LYDIA GUIDRY MD [facility]ITALIndigo
[2018-08-14] MEDS: NS IV 1000 ML 1,000 ML IV SCH (15:37)
[2018-08-14 16:54] VITALS: BP 110/59
[2018-08-14] MEDS: PIPERACILLIN/TAZO 4.5 GM/NS 100 ML IV SCH ×2 (18:40)
[2018-08-14] MEDS: oxyCODONE/APAP 10/325MG (PERCOCET 10) TABLET PO PRN (19:33)
[2018-08-14 20:14] VITALS: BP 115/57
[2018-08-14] MEDS: HYDROCORTISONE 100 MG/2 ML (Solu-CORTEF) VIAL IV SCH (21:10)
[2018-08-14 23:50] VITALS: BP 105/56
[2018-08-15] MEDS: PIPERACILLIN/TAZO 4.5 GM/NS 100 ML IV SCH ×6 (03:34→19:20)
[2018-08-15 04:00] VITALS: BP 104/61
[2018-08-15] MEDS: NS IV 1000 ML 1,000 ML IV SCH ×2 (04:20→20:21)
[2018-08-15 05:52] LABS: BASOPHILS % (AUTO) 0 % (0-10); EOSINOPHILS % (AUTO) 0 % (0-10); HEMATOCRIT 33 % (40-54); LYMPHOCYTES # (AUTO) 0.9 X 10^3 (1.0-4.0); LYMPHOCYTES % (AUTO) 8 % (12-44); MEAN CORPUSCULAR HEMOGLOBIN 29 PG (25-34); MEAN CORPUSCULAR HGB CONC 33 G/DL (32-36); MEAN CORPUSCULAR VOLUME 88 FL (80-99); MEAN PLATELET VOLUME 8.9 FL (7.4-10.4); MONOCYTES # (AUTO) 0.8 X 10^3 (0.0-1.0); MONOCYTES % (AUTO) 7 % (0-12); NEUTROPHILS % (AUTO) 85 % (42-75); PLATELET COUNT 248 10^3/uL (130-400); RED CELL DISTRIBUTION WIDTH 14.4 % (10.0-14.5); WHITE BLOOD COUNT 11.8 10^3/uL (4.3-11.0)
[2018-08-15] MEDS: oxyCODONE/APAP 10/325MG (PERCOCET 10) TABLET PO PRN ×3 (05:52→20:21)
[2018-08-15] MEDS: PANTOPRAZOLE 40 MG (PROTONIX) TAB PO SCH (05:53)
[2018-08-15 06:11] LABS: ALANINE AMINOTRANSFERASE 25 U/L (0-55); ALBUMIN 2.9 GM/DL (3.2-4.5); ALKALINE PHOSPHATASE 52 U/L (40-136); BILIRUBIN,TOTAL 0.5 MG/DL (0.1-1.0); BUN/CREATININE RATIO 28; CALCIUM 9.3 MG/DL (8.5-10.1); CARBON DIOXIDE 25 MMOL/L (21-32); CHLORIDE 104 MMOL/L (98-107); CREATININE SERUM 0.74 MG/DL (0.60-1.30); GFR ESTIMATED > 60; GLUCOSE 107 MG/DL (70-105); SODIUM 138 MMOL/L (135-145); TOTAL PROTEIN 5.5 GM/DL (6.4-8.2)
[2018-08-15 07:35] VITALS: BP 113/66
[2018-08-15] MEDS ORDERED: fentaNYL INJECTION 100 MCG/2 ML AMP ONE (07:46)
[2018-08-15] MEDS ORDERED: fentaNYL INJECTION 100 MCG/2 ML AMP IVP NR (07:47)
--- NOTE | 2018-08-15 07:59 | Progress Note (SOAP) ---
Subjective Date Seen by a Provider: Aug 15, 2018 Time Seen by a Provider: 07:25 Subjective/Events-last exam Reports increased pain over the suprapubic region with frequency of urination. Denies any pneumaturia or fecaluria. Review of Systems HEENT: No Head Aches, No Eye Pain, No Ear Pain, No Dysphasia, No Sinus Congestion, No Post Nasal Drip, No Sore Throat Pulmonary: No Dyspnea, No Cough, No Pleuritic Chest Pain Cardiovascular: No: Chest Pain, Palpitations, Orthopnea, Paroxysmal Noc. Dyspnea, Edema, Lt Headedness Gastrointestinal: Abdominal Pain Genitourinary: Frequency Musculoskeletal: No: other, neck pain, shoulder pain, arm pain, back pain, hand pain, leg pain, foot pain Neurological: No: Weakness, Numbness, Incoordination, Change in speech, Confusion, Seizures, Other Focused Exam Lactate Level 08/14/18 10:55: Lactic Acid Level 0.53 Objective Exam Vital Signs Date Time Temp Pulse Resp B/P (MAP) Pulse Ox O2 Delivery O2 Flow Rate FiO2 08/15/18 04:00 97.5 58 16 104/61 (75) 96 NIV CPAP 08/14/18 23:50 98.0 61 18 105/56 (72) 92 NIV CPAP 08/14/18 23:45 Room Air 08/14/18 20:14 98.6 71 18 115/57 (76) 96 Room Air 08/14/18 20:00 Room Air 08/14/18 16:54 99.4 66 18 110/59 (76) 93 Room Air 08/14/18 15:00 99.2 74 18 126/88 (101) 93 Room Air 08/14/18 14:55 Room Air 08/14/18 14:10 88 16 125/78 (94) 96 08/14/18 10:45 97.6 68 18 148/75 (99) 97 Room Air I & O 08/15/18 07:00 Intake Total 1790 ml Balance 1790 ml Capillary Refill : Less Than 3 Seconds General Appearance: Moderate Distress Neck: Normal Inspection Respiratory: Lungs Clear Gastrointestinal: soft, tenderness Neurologic/Psychiatric: Alert, Oriented x3 Skin: Warm/Dry Results Lab Laboratory Tests 08/14/18 10:55: White Blood Count 10.9, Red Blood Count 4.36, Hemoglobin 12.4L, Hematocrit 38L, Mean Corpuscular Volume 88, Mean Corpuscular Hemoglobin 28, Mean Corpuscular Hemoglobin Concent 32, Red Cell Distribution Width 14.1, Platelet Count 244, Mean Platelet Volume 8.8, Neutrophils (%) (Auto) 79H, Lymphocytes (%) (Auto) 11L , Monocytes (%) (Auto) 9, Eosinophils (%) (Auto) 1, Basophils (%) (Auto) 0, Neutrophils # (Auto) 8.6H, Lymphocytes # (Auto) 1.2, Monocytes # (Auto) 1.0, Eosinophils # (Auto) 0.1, Basophils # (Auto) 0.0, Prothrombin Time 14.9H, INR Comment 1.2, Activated Partial Thromboplast Time 32, Sodium Level 138, Potassium Level 4.2, Chloride Level 101, Carbon Dioxide Level 31, Anion Gap 6, Blood Urea Nitrogen 19H, Creatinine 0.75, Estimat Glomerular Filtration Rate > 60, BUN/Creatinine Ratio 25, Glucose Level 98, Lactic Acid Level 0.53, Calcium Level 10.1, Corrected Calcium 10.7H, Total Bilirubin 0.4, Aspartate Amino Transf (AST/SGOT) 17, Alanine Aminotransferase (ALT/SGPT) 20, Alkaline Phosphatase 57, C-Reactive Protein High Sensitivity 6.16H, B-Type Natriuretic Peptide 41.7, Total Protein 6.3L, Albumin 3.3 08/14/18 11:18: Urine Color YELLOW, Urine Clarity CLEAR, Urine pH 7, Urine Specific [place] 1.005L, Urine Protein NEGATIVE, Urine Glucose (UA) NEGATIVE, Urine Ketones NEGATIVE, Urine Nitrite NEGATIVE, Urine Bilirubin NEGATIVE, Urine Urobilinogen NORMAL, Urine Leukocyte Esterase NEGATIVE, Urine RBC (Auto) NEGATIVE, Urine RBC NONE, Urine WBC NONE, Urine Squamous Epithelial Cells RARE, Urine Crystals NONE , Urine Bacteria NEGATIVE, Urine Casts NONE, Urine Mucus NEGATIVE, Urine Culture Indicated NO 08/15/18 05:25: White Blood Count 11.8H, Red Blood Count 3.80L, Hemoglobin 11.0L, Hematocrit 33L , Mean Corpuscular Volume 88, Mean Corpuscular Hemoglobin 29, Mean Corpuscular Hemoglobin Concent 33, Red Cell Distribution Width 14.4, Platelet Count 248, Mean Platelet Volume 8.9, Neutrophils (%) (Auto) 85H, Lymphocytes (%) (Auto) 8L , Monocytes (%) (Auto) 7, Eosinophils (%) (Auto) 0, Basophils (%) (Auto) 0, Neutrophils # (Auto) 10.0H, Lymphocytes # (Auto) 0.9L, Monocytes # (Auto) 0.8, Eosinophils # (Auto) 0.0, Basophils # (Auto) 0.0, Sodium Level 138, Potassium Level 4.0, Chloride Level 104, Carbon Dioxide Level 25, Anion Gap 9, Blood Urea Nitrogen 21H, Creatinine 0.74, Estimat Glomerular Filtration Rate > 60, BUN/ Creatinine Ratio 28, Glucose Level 107H, Calcium Level 9.3, Corrected Calcium 10.2H, Total Bilirubin 0.5, Aspartate Amino Transf (AST/SGOT) 19, Alanine Aminotransferase (ALT/SGPT) 25, Alkaline Phosphatase 52, Total Protein 5.5L, Albumin 2.9L Assessment/Plan Assessment/Plan Assess & Plan/Chief Complaint Gentleman with complicated sigmoid diverticular disease. 4 cm pericolic abscess. On IV antibiotics. Percutaneous drainage being considered. Final Diagnosis Sigmoid diverticulitis. Pericolic abscess Clinical Quality Measures DVT/VTE Risk/Contraindication: Risk Factor Score Per Nursin RFS Level Per Nursing on Admit: 2=Moderate ANNIE BRASHER MD Aug 15, 2018 07:59
[2018-08-15] MEDS ORDERED: fentaNYL INJECTION 100 MCG/2 ML AMP IVP PRN (08:00)
[2018-08-15] MEDS: HYDROCORTISONE 100 MG/2 ML (Solu-CORTEF) VIAL IV SCH ×2 (08:57→20:20)
[2018-08-15] MEDS: GABAPENTIN 100 MG (NEURONTIN) CAP PO SCH ×2 (10:16→20:20)
--- NOTE | 2018-08-15 10:31 | History & Physical-Hospitalist ---
History of Present Illness HPI/Chief Complaint CC: Abdominal pain HPI: This is a 78yoWM clinic patient of Dr Hussein who presents to the ER with severe abdominal pain with dysuria who was recently in the hospital for diverticulitis and UTI from Proteus and had been DC on Augmentin but the pain worsened to the point of incapacitating so he went to ER and w/u revealed an abscess in the mid sigmoid colon. There was no evidence of free air and no indication for emergent surgery so Dr Banuelos was consulted and placed on broad spectrum abx and will be monitored closely for any need of IR drainage of abscess. Pt reports improved pain since admitted and is able to walk around with minimal pain. Home meds were restarted and patient is overall doing much better. Source: patient Exam Limitations: no limitations Date Seen 08/15/18 Time Seen by a Provider: 12:00 Attending Physician Beverly Hussein MD PCP Beverly Hussein MD Referring Physician Date of Admission Aug 14, 2018 at 14:01 Home Medications & Allergies Home Medications Reviewed patient Home Medication Reconciliation performed by pharmacy medication reconciliations biological science technician fish and/or nursing. Patients Allergies have been reviewed. Allergies Allergies Coded Allergies No Known Drug Allergies (Epmqtnys14/21/18) Past Fzcelmd-Mkugpa-Zibslz Hx Past Med/Social Hx: Reviewed Nursing Past Med/Soc Hx, Reviewed and Corrections made Patient Social History Marrital Status: Employed/Student: retired ([employer] then [employer] 34 years) Alcohol Use: Denies Use Recreational Drug Use: No Smoking Status: Never a Smoker Physical Abuse Screen: No Sexual Abuse: No Recent Foreign Travel: No Contact w/other who traveled: No Recent Hopitalizations: Yes (OUT 08/10/18) Recent Infectious Disease Expo: No Immunizations Up To Date Tetanus Booster (TDap): Unknown Pediatric: Yes Date of Pneumonia Vaccine: Jul 15, 2016 Date of Influenza Vaccine: Jul 29, 2018 Seasonal Allergies Seasonal Allergies: Yes Past Medical History Surgeries: Gallbladder Currently Using CPAP: Yes Currently Using BIPAP: No Cardiac: Hypertension Reproductive: No Genitourinary: Prostate Problems, Kidney Stones Gastrointestinal: Diverticulosis, Gall Bladder Disease Loss of Vision: Denies Hearing Impairment: Denies Cancer: Bladder, Prostate, Skin Did You Recieve Any Treatments: Yes What Type of Treatment Did You: Surgical Intervention History of Blood Disorders: No Adverse Reaction to Blood [place]: No Family History Reviewed Nursing Family Hx Dementia 19 MOTHER FH: lung cancer 19 FATHER No Pertinent Family Hx Review of Systems Constitutional: see HPI, fever, malaise, weakness EENTM: no symptoms reported Respiratory: no symptoms reported Cardiovascular: no symptoms reported Gastrointestinal: abdominal pain (LLQ), loss of appetite, nausea Genitourinary: no symptoms reported Musculoskeletal: no symptoms reported Skin: no symptoms reported Psychiatric/Neurological: No Symptoms Reported All Other Systems Reviewed Negative Unless Noted: Yes Physical Exam Physical Exam Vital Signs Vital Signs - First Documented 08/14/18 10:45 Temp 97.6 Pulse 68 Resp 18 B/P (MAP) 148/75 (99) Pulse Ox 97 O2 Delivery Room Air Capillary Refill : Less Than 3 Seconds Height, Weight, BMI Height: 6'3.00" Weight: 208lbs. 1.6oz. [id number]; 26.4 BMI Method:Stated General Appearance: No Apparent Distress, WD/WN, Chronically ill Eyes: Bilateral Eye Normal Inspection, Bilateral Eye PERRL HEENT: PERRL/EOMI, Normal ENT Inspection, Pharynx Normal Neck: Full Range of Motion, Normal Inspection, Non Tender, Supple, Carotid Bruit Respiratory: Chest Non Tender, Lungs Clear, Normal Breath Sounds, No Accessory Muscle Use, No Respiratory Distress Cardiovascular: Regular Rate, Rhythm, No Edema, No Gallop, No JVD, No Murmur, Normal Peripheral Pulses Gastrointestinal: Normal Bowel Sounds, No Organomegaly, No Pulsatile Mass, Soft , Tenderness (LLQ) Back: Normal Inspection, No CVA Tenderness, No Vertebral Tenderness Extremity: Normal Capillary Refill, Normal Inspection, Normal Range of Motion, Non Tender, No Calf Tenderness, No Pedal Edema Neurologic/Psychiatric: Alert, Oriented x3, No Motor/Sensory Deficits, Normal Mood/Affect Skin: Normal Color, Warm/Dry Lymphatic: No Adenopathy Results Results/Procedures Labs Laboratory Tests 08/14/18 10:55 08/15/18 05:25 Patient resulted labs reviewed. Assessment/Plan Admission Diagnosis Assessment: Sigmoid diverticulitis with abscess formation without perforation HTN Diverticulosis Leukocytosis REGINE HTN Asthma Prostate cancer s/p prostatectomy Plan: Monitor labs Pain control IVF IV abx Appreciate general surgery expertise Admission Status: Inpatient Order (span 2 midnights) Reason for Inpatient Admission: Sigmoid diverticulitis failed outpt tx after hospital stay then abscess formation will require intervention if abx do not resolve Diagnosis/Problems Diagnosis/Problems (1) Intestinal diverticular abscess (2) Diverticulitis Status: Acute (3) REGINE on CPAP Status: Chronic (4) HTN (hypertension) Status: Chronic Qualifiers: Hypertension type: essential hypertension Qualified Codes: I10 - Essential (primary) hypertension (5) Prostate cancer Status: Chronic (6) H/O prostatectomy Status: Chronic (7) Leukocytosis Status: Acute Qualifiers: Leukocytosis type: leukemoid reaction Qualified Codes: D72.823 - Leukemoid reaction Clinical Quality Measures DVT/VTE Risk/Contraindication: Risk Factor Score Per Nursin RFS Level Per Nursing on Admit: 2=Moderate BARRON TAO DO Aug 15, 2018 10:31
[2018-08-15] MEDS: RT-ADVAIR HFA 115/21 MCG PER PUFF IH SCH (10:37)
[2018-08-15 11:00] VITALS: BP 133/66
[2018-08-15 15:52] VITALS: BP 101/56
[2018-08-15 19:29] VITALS: BP 105/56
[2018-08-16] VITALS: BP 113/58
[2018-08-16] MEDS: NS IV 1000 ML 1,000 ML IV SCH ×2 (03:06→16:16)
[2018-08-16] MEDS: PIPERACILLIN/TAZO 4.5 GM/NS 100 ML IV SCH ×6 (03:19→19:49)
[2018-08-16] MEDS: oxyCODONE/APAP 10/325MG (PERCOCET 10) TABLET PO PRN ×3 (03:19→18:47)
[2018-08-16 04:00] VITALS: BP 111/69
[2018-08-16] MEDS: PANTOPRAZOLE 40 MG (PROTONIX) TAB PO SCH (06:30)
[2018-08-16] MEDS: RT-ADVAIR HFA 115/21 MCG PER PUFF IH SCH (07:19)
[2018-08-16 08:14] LABS: HEMOGLOBIN 10.7 G/DL (13.3-17.7); RED BLOOD COUNT 3.77 10^6/uL (4.35-5.85); RED CELL DISTRIBUTION WIDTH 14.2 % (10.0-14.5); WHITE BLOOD COUNT 10.4 10^3/uL (4.3-11.0)
[2018-08-16] MEDS: HYDROCORTISONE 100 MG/2 ML (Solu-CORTEF) VIAL IV SCH ×2 (08:23→21:40)
[2018-08-16] MEDS: GABAPENTIN 100 MG (NEURONTIN) CAP PO SCH ×2 (08:30→21:40)
[2018-08-16 08:38] LABS: ALANINE AMINOTRANSFERASE 18 U/L (0-55); ALBUMIN 2.8 GM/DL (3.2-4.5); ALKALINE PHOSPHATASE 48 U/L (40-136); BILIRUBIN,TOTAL 0.5 MG/DL (0.1-1.0); BUN/CREATININE RATIO 23; CALCIUM 9.2 MG/DL (8.5-10.1); CARBON DIOXIDE 26 MMOL/L (21-32); CHLORIDE 105 MMOL/L (98-107); CREATININE SERUM 0.69 MG/DL (0.60-1.30); GFR ESTIMATED > 60; GLUCOSE 92 MG/DL (70-105); POTASSIUM 3.6 MMOL/L (3.6-5.0); SODIUM 139 MMOL/L (135-145); TOTAL PROTEIN 5.3 GM/DL (6.4-8.2)
[2018-08-16 08:58] VITALS: BP 141/67
--- NOTE | 2018-08-16 10:17 | Progress Note (SOAP) ---
Subjective Date Seen by a Provider: Aug 16, 2018 Time Seen by a Provider: 09:55 Subjective/Events-last exam Increased frequency of urination and pain over the suprapubic region persists. Afebrile. White cell count normal. No pneumaturia or fecaluria Review of Systems General: No Chills, No Night Sweats, No Fatigue, No Malaise HEENT: No Head Aches, No Eye Pain, No Ear Pain, No Dysphasia, No Sinus Congestion, No Post Nasal Drip, No Sore Throat Pulmonary: No Dyspnea, No Cough, No Pleuritic Chest Pain Cardiovascular: No: Chest Pain, Palpitations, Orthopnea, Paroxysmal Noc. Dyspnea, Edema, Lt Headedness Gastrointestinal: Abdominal Pain Genitourinary: Frequency Musculoskeletal: No: other, neck pain, shoulder pain, arm pain, back pain, hand pain, leg pain, foot pain Neurological: No: Weakness, Numbness, Incoordination, Change in speech, Confusion, Seizures, Other Focused Exam Lactate Level 08/14/18 10:55: Lactic Acid Level 0.53 Objective Exam Vital Signs Date Time Temp Pulse Resp B/P (MAP) Pulse Ox O2 Delivery O2 Flow Rate FiO2 08/16/18 08:58 98.9 58 24 141/67 (91) 98 Room Air 08/16/18 07:20 96 Room Air 08/16/18 04:00 97.9 53 16 111/69 (83) 95 Room Air 08/16/18 00:00 98.5 56 16 113/58 (76) 94 Room Air 08/15/18 20:20 Room Air 08/15/18 19:29 99.1 65 18 105/56 (72) 96 Room Air 08/15/18 15:52 98.1 54 18 101/56 (71) 94 Room Air 08/15/18 11:00 97.1 75 18 133/66 (88) 97 Room Air 08/15/18 10:37 95 Room Air I & O 08/16/18 07:00 Intake Total 3392 ml Balance 3392 ml Capillary Refill : Less Than 3 Seconds General Appearance: Anxious, Moderate Distress HEENT: Normal ENT Inspection Neck: Normal Inspection Respiratory: Lungs Clear Cardiovascular: Regular Rate, Rhythm Gastrointestinal: tenderness Extremity: Normal Inspection Neurologic/Psychiatric: Alert, Oriented x3 Skin: Warm/Dry Other comments upper midline scar from an open cholecystectomy several years ago. Mild suprapubic tenderness. No evidence of peritonitis. Results Lab Laboratory Tests 08/15/18 11:00: Glucometer 163H 08/16/18 07:57: White Blood Count 10.4, Red Blood Count 3.77L, Hemoglobin 10.7L, Hematocrit 33L , Mean Corpuscular Volume 88, Mean Corpuscular Hemoglobin 28, Mean Corpuscular Hemoglobin Concent 32, Red Cell Distribution Width 14.2, Platelet Count 223, Mean Platelet Volume 9.0, Sodium Level 139, Potassium Level 3.6, Chloride Level 105, Carbon Dioxide Level 26, Anion Gap 8, Blood Urea Nitrogen 16, Creatinine 0.69, Estimat Glomerular Filtration Rate > 60, BUN/Creatinine Ratio 23, Glucose Level 92, Calcium Level 9.2, Corrected Calcium 10.2H, Total Bilirubin 0.5, Aspartate Amino Transf (AST/SGOT) 14, Alanine Aminotransferase (ALT/SGPT) 18, Alkaline Phosphatase 48, Total Protein 5.3L, Albumin 2.8L Microbiology 08/14/18 Blood Culture - Preliminary, Resulted No growth Assessment/Plan Assessment/Plan Assess & Plan/Chief Complaint Gentleman with complicated sigmoid diverticular disease. 4 cm pericolic abscess. On IV antibiotics. Percutaneous drainage being considered. gentleman with pericolic abscess. CT-guided percutaneous drainage is scheduled for Sunday. We'll continue antibiotics. Management plan discussed Thoroughly with the patient. Final Diagnosis diverticulitis with pericolic abscess Clinical Quality Measures DVT/VTE Risk/Contraindication: Risk Factor Score Per Nursin RFS Level Per Nursing on Admit: 2=Moderate ANNIE BRASHER MD Aug 16, 2018 10:17
--- NOTE | 2018-08-16 11:00 | Progress Note-Hospitalist ---
Subjective HPI/CC On Admission Date Seen by Provider: Aug 16, 2018 Time Seen by Provider: 11:15 CC: Abdominal pain HPI: This is a 78yoWM clinic patient of Dr Hussein who presents to the ER with severe abdominal pain with dysuria who was recently in the hospital for diverticulitis and UTI from Proteus and had been DC on Augmentin but the pain worsened to the point of incapacitating so he went to ER and w/u revealed an abscess in the mid sigmoid colon. There was no evidence of free air and no indication for emergent surgery so Dr Banuelos was consulted and placed on broad spectrum abx and will be monitored closely for any need of IR drainage of abscess. Pt reports improved pain since admitted and is able to walk around with minimal pain. Home meds were restarted and patient is overall doing much better. Subjective/Events-last exam Patient doing better Dr. Celaya updated me on the plan IV antibiotics tolerated Pain control is working Plan for interventional radiology to drain abscess on Sunday after 5 days of IV antibiotics then will likely require resection of that disease part of the bowel with diverting colostomy and reanastomosis planned for 3 months after Patient updated on the plan and understands details Review of Systems Gastrointestinal: Abdominal Pain Focused Exam Lactate Level 08/14/18 10:55: Lactic Acid Level 0.53 Objective Exam Vital Signs Vital Signs Date Time Temp Pulse Resp B/P (MAP) Pulse Ox O2 Delivery O2 Flow Rate FiO2 08/16/18 08:58 98.9 58 24 141/67 (91) 98 Room Air Capillary Refill : Less Than 3 Seconds General Appearance: No Apparent Distress, WD/WN Respiratory: Chest Non Tender, Lungs Clear, Normal Breath Sounds, No Accessory Muscle Use, No Respiratory Distress Cardiovascular: Regular Rate, Rhythm, No Edema, No Gallop, No JVD, No Murmur, Normal Peripheral Pulses Gastrointestinal: Normal Bowel Sounds, No Organomegaly, No Pulsatile Mass, Soft , Tenderness Extremity: Normal Capillary Refill, Normal Inspection, Normal Range of Motion, Non Tender, No Calf Tenderness, No Pedal Edema Results/Procedures Lab Laboratory Tests 08/16/18 07:57 Patient resulted labs reviewed. Assessment/Plan Assessment and Plan Assess & Plan/Chief Complaint Assessment: Pericolonic abscess in need of interventional radiology for drainage Needs partial colon resection due to severity of diverticulosis and abscess formation REGINE on CPap Hypertension History of prostate cancer status post prostatectomy Plan: Maintain antibiotic coverage Supportive care Pain control Interventional radiology for abscess drainage on Sunday Diagnosis/Problems Diagnosis/Problems (1) Intestinal diverticular abscess (2) Diverticulitis Status: Acute (3) REGINE on CPAP Status: Chronic (4) HTN (hypertension) Status: Chronic Qualifiers: Hypertension type: essential hypertension Qualified Codes: I10 - Essential (primary) hypertension (5) Prostate cancer Status: Chronic (6) H/O prostatectomy Status: Chronic (7) Leukocytosis Status: Acute Qualifiers: Leukocytosis type: leukemoid reaction Qualified Codes: D72.823 - Leukemoid reaction Clinical Quality Measures DVT/VTE Risk/Contraindication: Risk Factor Score Per Nursin RFS Level Per Nursing on Admit: 2=Moderate BARRON TAO DO Aug 16, 2018 11:00
[2018-08-16 12:00] VITALS: BP 120/59
[2018-08-16] MEDS: fentaNYL INJECTION 100 MCG/2 ML AMP IVP PRN ×2 (14:46→15:19)
[2018-08-16 16:00] VITALS: BP 107/55
[2018-08-16 20:00] VITALS: BP 109/56
[2018-08-16] MEDS: POLYETHYLENE GLYCOL 17 GM (MIRALAX) PACK PO SCH (21:40)
[2018-08-17] VITALS (7 sets, daily range): BP systolic 110–124; BP diastolic 62–84
[2018-08-17] MEDS: PIPERACILLIN/TAZO 4.5 GM/NS 100 ML IV SCH ×6 (03:49→20:10)
[2018-08-17] MEDS: PANTOPRAZOLE 40 MG (PROTONIX) TAB PO SCH (06:40)
[2018-08-17] MEDS: oxyCODONE/APAP 10/325MG (PERCOCET 10) TABLET PO PRN ×2 (06:41→12:25)
[2018-08-17] MEDS: RT-ADVAIR HFA 115/21 MCG PER PUFF IH SCH (07:28)
[2018-08-17] MEDS: GABAPENTIN 100 MG (NEURONTIN) CAP PO SCH ×2 (10:03→20:09)
[2018-08-17] MEDS: HYDROCORTISONE 100 MG/2 ML (Solu-CORTEF) VIAL IV SCH ×2 (10:03→20:09)
[2018-08-17] MEDS: POLYETHYLENE GLYCOL 17 GM (MIRALAX) PACK PO SCH ×2 (10:03→20:09)
--- NOTE | 2018-08-17 12:50 | Progress Note-Hospitalist ---
Subjective HPI/CC On Admission Date Seen by Provider: Aug 17, 2018 Time Seen by Provider: 11:00 CC: Abdominal pain HPI: This is a 78yoWM clinic patient of Dr Hussein who presents to the ER with severe abdominal pain with dysuria who was recently in the hospital for diverticulitis and UTI from Proteus and had been DC on Augmentin but the pain worsened to the point of incapacitating so he went to ER and w/u revealed an abscess in the mid sigmoid colon. There was no evidence of free air and no indication for emergent surgery so Dr Banuelos was consulted and placed on broad spectrum abx and will be monitored closely for any need of IR drainage of abscess. Pt reports improved pain since admitted and is able to walk around with minimal pain. Home meds were restarted and patient is overall doing much better. Subjective/Events-last exam Patient doing well Is hungry We'll change IV fluids to Clinimix for peripheral nutrition until Sunday Explained interventional radiology procedure in basic information Pain is well-controlled on pain medication Ambulating well Review of Systems Gastrointestinal: Abdominal Pain Objective Exam Vital Signs Vital Signs Date Time Temp Pulse Resp B/P (MAP) Pulse Ox O2 Delivery O2 Flow Rate FiO2 08/17/18 08:48 99.3 56 18 110/62 (78) 92 Room Air Capillary Refill : Less Than 3 Seconds General Appearance: No Apparent Distress, WD/WN Respiratory: Chest Non Tender, Lungs Clear, Normal Breath Sounds, No Accessory Muscle Use, No Respiratory Distress Cardiovascular: Regular Rate, Rhythm, No Edema, No Gallop, No JVD, No Murmur, Normal Peripheral Pulses Gastrointestinal: Normal Bowel Sounds, No Organomegaly, No Pulsatile Mass, Soft , Tenderness (LLQ) Neurologic/Psychiatric: Alert, Oriented x3, No Motor/Sensory Deficits, Normal Mood/Affect Results/Procedures Lab Patient resulted labs reviewed. Assessment/Plan Assessment and Plan Assess & Plan/Chief Complaint Assessment: Pericolonic abscess in need of interventional radiology for drainage scheduled for Sunday Needs partial colon resection due to severity of diverticulosis and abscess formation and will do that after acute infection resolved REGINE on CPAP Hypertension History of prostate cancer status post prostatectomy Plan: Maintain antibiotic coverage Supportive care Pain control Interventional radiology for abscess drainage on Sunday Clinimix for nutrition in the meantime Diagnosis/Problems Diagnosis/Problems (1) Intestinal diverticular abscess (2) Diverticulitis Status: Acute (3) REGINE on CPAP Status: Chronic (4) HTN (hypertension) Status: Chronic Qualifiers: Hypertension type: essential hypertension Qualified Codes: I10 - Essential (primary) hypertension (5) Prostate cancer Status: Chronic (6) H/O prostatectomy Status: Chronic (7) Leukocytosis Status: Acute Qualifiers: Leukocytosis type: leukemoid reaction Qualified Codes: D72.823 - Leukemoid reaction Clinical Quality Measures DVT/VTE Risk/Contraindication: Risk Factor Score Per Nursin RFS Level Per Nursing on Admit: 2=Moderate BARRON TAO DO Aug 17, 2018 12:50
[2018-08-17] MEDS: AA 4.25% W/LYTES IN D5W IV SOL 1,000 ML IV SCH (14:00)
--- NOTE | 2018-08-17 16:05 | Progress Note ---
Subjective Date Seen by a Provider: Aug 17, 2018 Time Seen by a Provider: 09:52 Subjective/Events-last exam Patient states is doing well. He is having some pain but it's controlled which is located in the lower abdomen. Patient is on IV antibiotics and is awaiting IR drainage. He has no new complaints he states. He denies any nausea vomiting fever sweats chills shortness of breath or chest pain. Tolerating clear liquids. Objective Exam Vital Signs Date Time Temp Pulse Resp B/P (MAP) Pulse Ox O2 Delivery O2 Flow Rate FiO2 08/17/18 12:00 98.2 55 20 124/70 (88) 95 Room Air 08/17/18 08:48 99.3 56 18 110/62 (78) 92 Room Air 08/17/18 08:00 Room Air 08/17/18 07:28 94 Room Air 08/17/18 04:00 98.2 68 20 122/84 (97) 95 Room Air 08/17/18 00:00 98.6 64 20 121/69 (86) 93 Room Air 08/16/18 20:00 Room Air 08/16/18 20:00 99.1 65 20 109/56 (73) 96 Room Air I & O 08/17/18 07:00 Intake Total 4705 ml Balance 4705 ml Capillary Refill : Less Than 3 Seconds General Appearance: No Apparent Distress, WD/WN HEENT: Normal ENT Inspection Neck: Normal Inspection Respiratory: Chest Non Tender, No Accessory Muscle Use, No Respiratory Distress Cardiovascular: Regular Rate, Rhythm, Normal Peripheral Pulses Gastrointestinal: tenderness (Minimal lower abdomen) Extremity: Normal Capillary Refill, Normal Inspection, Normal Range of Motion, Non Tender, No Calf Tenderness, No Pedal Edema Neurologic/Psychiatric: Alert, Oriented x3, No Motor/Sensory Deficits, Normal Mood/Affect Skin: Warm/Dry Lymphatic: No Adenopathy Results Lab Microbiology 08/14/18 Blood Culture - Preliminary, Resulted No growth 08/14/18 Urine Culture - Final, Complete NO GROWTH Assessment/Plan Assessment/Plan Assessment/Plan Gentleman with complicated sigmoid diverticular disease. 4 cm pericolic abscess. On IV antibiotics. Percutaneous drainage is planned for Sunday. Repeat labs in a.m., continue clears Clinical Quality Measures DVT/VTE Risk/Contraindication: Risk Factor Score Per Nursin RFS Level Per Nursing on Admit: 2=Moderate ALEXANDRO MENDEZ DO Aug 17, 2018 16:05
[2018-08-17] MEDS: HYDROcodone/APAP 10 MG/325 MG (LORTAB) TAB PO PRN (20:09)
[2018-08-17] MEDS: fentaNYL INJECTION 100 MCG/2 ML AMP IVP PRN (21:10)
[2018-08-18 00:29] VITALS: BP 114/63
[2018-08-18 03:21] VITALS: BP 112/68
[2018-08-18] MEDS: PIPERACILLIN/TAZO 4.5 GM/NS 100 ML IV SCH ×6 (03:24→19:43)
[2018-08-18] MEDS: AA 4.25% W/LYTES IN D5W IV SOL 1,000 ML IV SCH ×3 (03:24→21:52)
[2018-08-18 05:16] LABS: BASOPHILS % (AUTO) 0 % (0-10); EOSINOPHILS # (AUTO) 0.1 10^3/uL (0.0-0.3); EOSINOPHILS % (AUTO) 1 % (0-10); HEMATOCRIT 32 % (40-54); HEMOGLOBIN 10.6 G/DL (13.3-17.7); LYMPHOCYTES # (AUTO) 1.4 X 10^3 (1.0-4.0); LYMPHOCYTES % (AUTO) 14 % (12-44); MEAN CORPUSCULAR HEMOGLOBIN 29 PG (25-34); MEAN CORPUSCULAR HGB CONC 33 G/DL (32-36); MEAN CORPUSCULAR VOLUME 87 FL (80-99); MEAN PLATELET VOLUME 8.9 FL (7.4-10.4); MONOCYTES # (AUTO) 0.9 X 10^3 (0.0-1.0); MONOCYTES % (AUTO) 9 % (0-12); NEUTROPHILS # (AUTO) 7.7 X 10^3 (1.8-7.8); NEUTROPHILS % (AUTO) 76 % (42-75); PLATELET COUNT 244 10^3/uL (130-400); RED BLOOD COUNT 3.65 10^6/uL (4.35-5.85); RED CELL DISTRIBUTION WIDTH 14.3 % (10.0-14.5); WHITE BLOOD COUNT 10.2 10^3/uL (4.3-11.0)
[2018-08-18 05:55] LABS: ALANINE AMINOTRANSFERASE 17 U/L (0-55); ALBUMIN 2.8 GM/DL (3.2-4.5); ALKALINE PHOSPHATASE 48 U/L (40-136); BILIRUBIN,TOTAL 0.4 MG/DL (0.1-1.0); BUN/CREATININE RATIO 27; CALCIUM 9.3 MG/DL (8.5-10.1); CARBON DIOXIDE 25 MMOL/L (21-32); CHLORIDE 106 MMOL/L (98-107); CREATININE SERUM 0.64 MG/DL (0.60-1.30); GFR ESTIMATED > 60; GLUCOSE 113 MG/DL (70-105); POTASSIUM 3.5 MMOL/L (3.6-5.0); SODIUM 139 MMOL/L (135-145); TOTAL PROTEIN 5.3 GM/DL (6.4-8.2)
[2018-08-18] MEDS: oxyCODONE/APAP 10/325MG (PERCOCET 10) TABLET PO PRN ×4 (06:29→20:34)
[2018-08-18] MEDS: PANTOPRAZOLE 40 MG (PROTONIX) TAB PO SCH (06:29)
[2018-08-18] MEDS: RT-ADVAIR HFA 115/21 MCG PER PUFF IH SCH (07:50)
[2018-08-18 08:00] VITALS: BP 117/63
[2018-08-18] MEDS: POLYETHYLENE GLYCOL 17 GM (MIRALAX) PACK PO SCH ×2 (08:27→21:51)
[2018-08-18] MEDS: HYDROCORTISONE 100 MG/2 ML (Solu-CORTEF) VIAL IV SCH ×2 (08:28→21:52)
[2018-08-18] MEDS: GABAPENTIN 100 MG (NEURONTIN) CAP PO SCH ×2 (08:28→21:52)
--- NOTE | 2018-08-18 11:37 | Progress Note-Hospitalist ---
Subjective HPI/CC On Admission Date Seen by Provider: Aug 18, 2018 Time Seen by Provider: 10:30 CC: Abdominal pain HPI: This is a 78yoWM clinic patient of Dr Hussein who presents to the ER with severe abdominal pain with dysuria who was recently in the hospital for diverticulitis and UTI from Proteus and had been DC on Augmentin but the pain worsened to the point of incapacitating so he went to ER and w/u revealed an abscess in the mid sigmoid colon. There was no evidence of free air and no indication for emergent surgery so Dr Banuelos was consulted and placed on broad spectrum abx and will be monitored closely for any need of IR drainage of abscess. Pt reports improved pain since admitted and is able to walk around with minimal pain. Home meds were restarted and patient is overall doing much better. Subjective/Events-last exam Patient doing well today Had a BM this morning and feels better Ambulating well Pain pill really helped his pain this morning IR consultation tomorrow Clinimix has helped his energy level Review of Systems Gastrointestinal: Abdominal Pain Objective Exam Vital Signs Vital Signs Date Time Temp Pulse Resp B/P (MAP) Pulse Ox O2 Delivery O2 Flow Rate FiO2 08/18/18 12:00 98.4 52 20 119/62 (81) 94 Room Air Capillary Refill : Less Than 3 Seconds General Appearance: No Apparent Distress, WD/WN, Chronically ill Respiratory: Chest Non Tender, Lungs Clear, Normal Breath Sounds, No Accessory Muscle Use, No Respiratory Distress Cardiovascular: Regular Rate, Rhythm, No Edema, No Gallop, No JVD, No Murmur, Normal Peripheral Pulses Extremity: Normal Capillary Refill, Normal Inspection, Normal Range of Motion, No Calf Tenderness, No Pedal Edema Neurologic/Psychiatric: Alert, Oriented x3, No Motor/Sensory Deficits, Normal Mood/Affect Skin: Normal Color, Warm/Dry Results/Procedures Lab Laboratory Tests 08/18/18 05:10 Patient resulted labs reviewed. Assessment/Plan Assessment and Plan Assess & Plan/Chief Complaint Assessment: Pericolonic abscess in need of interventional radiology for drainage scheduled for Sunday Needs partial colon resection due to severity of diverticulosis and abscess formation and will do that after acute infection resolved REGINE on CPAP Hypertension History of prostate cancer status post prostatectomy Plan: Maintain antibiotic coverage Supportive care Pain control Interventional radiology for abscess drainage on Sunday Clinimix for nutrition in the meantime Diagnosis/Problems Diagnosis/Problems (1) Intestinal diverticular abscess (2) Diverticulitis Status: Acute (3) REGINE on CPAP Status: Chronic (4) HTN (hypertension) Status: Chronic Qualifiers: Hypertension type: essential hypertension Qualified Codes: I10 - Essential (primary) hypertension (5) Prostate cancer Status: Chronic (6) H/O prostatectomy Status: Chronic (7) Leukocytosis Status: Acute Qualifiers: Leukocytosis type: leukemoid reaction Qualified Codes: D72.823 - Leukemoid reaction Clinical Quality Measures DVT/VTE Risk/Contraindication: Risk Factor Score Per Nursin RFS Level Per Nursing on Admit: 2=Moderate BARRON TAO DO Aug 18, 2018 11:37
[2018-08-18 12:00] VITALS: BP 119/62
--- NOTE | 2018-08-18 15:43 | Progress Note ---
Subjective Date Seen by a Provider: Aug 18, 2018 Time Seen by a Provider: 09:13 Subjective/Events-last exam Patient doing well. His pain is controlled. He is ambulating well. He continues to feel better. Planning for IR drainage tomorrow. Denies any nausea vomiting fever sweats chills shortness of breath or chest pain. Objective Exam Vital Signs Date Time Temp Pulse Resp B/P (MAP) Pulse Ox O2 Delivery O2 Flow Rate FiO2 08/18/18 12:00 98.4 52 20 119/62 (81) 94 Room Air 08/18/18 08:00 99.1 52 20 117/63 (81) 94 Room Air 08/18/18 07:50 95 Room Air 08/18/18 03:21 98.6 58 20 112/68 (83) 94 Room Air 08/18/18 00:29 96.9 61 18 114/63 (80) 93 Room Air 08/17/18 20:00 Room Air 08/17/18 19:35 Room Air 08/17/18 19:15 99.1 64 18 124/62 (82) 97 Room Air 08/17/18 16:24 99.6 61 18 113/64 (80) 94 Room Air I & O 08/18/18 07:00 Intake Total 1880 ml Balance 1880 ml Capillary Refill : Less Than 3 Seconds General Appearance: No Apparent Distress, WD/WN, Chronically ill HEENT: Normal ENT Inspection Neck: Normal Inspection Respiratory: Chest Non Tender, No Accessory Muscle Use, No Respiratory Distress Cardiovascular: Regular Rate, Rhythm Gastrointestinal: tenderness (Minimal lower abdomen) Extremity: Normal Capillary Refill, Normal Inspection, Normal Range of Motion, No Calf Tenderness, No Pedal Edema Neurologic/Psychiatric: Alert, Oriented x3, No Motor/Sensory Deficits, Normal Mood/Affect Skin: Normal Color, Warm/Dry Lymphatic: No Adenopathy Results Lab Laboratory Tests 08/18/18 05:10: White Blood Count 10.2, Red Blood Count 3.65L, Hemoglobin 10.6L, Hematocrit 32L , Mean Corpuscular Volume 87, Mean Corpuscular Hemoglobin 29, Mean Corpuscular Hemoglobin Concent 33, Red Cell Distribution Width 14.3, Platelet Count 244, Mean Platelet Volume 8.9, Neutrophils (%) (Auto) 76H, Lymphocytes (%) (Auto) 14 , Monocytes (%) (Auto) 9, Eosinophils (%) (Auto) 1, Basophils (%) (Auto) 0, Neutrophils # (Auto) 7.7, Lymphocytes # (Auto) 1.4, Monocytes # (Auto) 0.9, Eosinophils # (Auto) 0.1, Basophils # (Auto) 0.0, Sodium Level 139, Potassium Level 3.5L, Chloride Level 106, Carbon Dioxide Level 25, Anion Gap 8, Blood Urea Nitrogen 17, Creatinine 0.64, Estimat Glomerular Filtration Rate > 60, BUN/ Creatinine Ratio 27, Glucose Level 113H, Calcium Level 9.3, Corrected Calcium 10.3H, Total Bilirubin 0.4, Aspartate Amino Transf (AST/SGOT) 15, Alanine Aminotransferase (ALT/SGPT) 17, Alkaline Phosphatase 48, Total Protein 5.3L, Albumin 2.8L Microbiology 08/14/18 Blood Culture - Preliminary, Resulted No growth 08/14/18 Urine Culture - Final, Complete NO GROWTH Assessment/Plan Assessment/Plan Assessment/Plan Gentleman with complicated sigmoid diverticular disease. 4 cm pericolic abscess. On IV antibiotics. Percutaneous drainage is planned for Sunday. Repeat labs in a.m., continue clears Clinical Quality Measures DVT/VTE Risk/Contraindication: Risk Factor Score Per Nursin RFS Level Per Nursing on Admit: 2=Moderate ALEXANDRO MENDEZ DO Aug 18, 2018 15:43
[2018-08-18 16:35] VITALS: BP 122/66
[2018-08-18 19:30] VITALS: BP 125/62
[2018-08-19] VITALS (7 sets, daily range): BP systolic 110–144; BP diastolic 61–83
[2018-08-19] MEDS: PIPERACILLIN/TAZO 4.5 GM/NS 100 ML IV SCH ×6 (03:06→20:11)
[2018-08-19] MEDS: oxyCODONE/APAP 10/325MG (PERCOCET 10) TABLET PO PRN ×3 (04:05→17:04)
[2018-08-19] MEDS: PANTOPRAZOLE 40 MG (PROTONIX) TAB PO SCH ×2 (06:13→12:47)
[2018-08-19] MEDS: HYDROCORTISONE 100 MG/2 ML (Solu-CORTEF) VIAL IV SCH ×2 (08:28→21:49)
[2018-08-19] MEDS ORDERED: LIDOCAINE 1% INJ 20 ML 20 ML VIAL INJ ONE (08:45)
[2018-08-19] MEDS: fentaNYL INJECTION 100 MCG/2 ML AMP IVP PRN ×2 (08:50→15:59)
--- NOTE | 2018-08-19 08:50 | Progress Note ---
Objective Exam Last Set of Vital Signs Vital Signs Date Time Temp Pulse Resp B/P (MAP) Pulse Ox O2 Delivery O2 Flow Rate FiO2 08/19/18 08:35 96.5 53 18 137/72 (93) 94 Room Air Capillary Refill : Less Than 3 Seconds I&O Intake and Output 08/19/18 00:00 Intake Total 3705 ml Balance 3705 ml Intake Oral 3705 ml # Voids 12 # Bowel Movements 1 Results Lab Microbiology 08/14/18 Blood Culture - Preliminary, Resulted No growth 08/14/18 Urine Culture - Final, Complete NO GROWTH Assessment/Plan Assessment/Plan Assess & Plan/Chief Complaint DIVERTICULAR ABSCESS Clinical Quality Measures DVT/VTE Risk/Contraindication: Risk Factor Score Per Nursin RFS Level Per Nursing on Admit: 2=Moderate JAMISON BILLY MD Aug 19, 2018 08:50
[2018-08-19] MEDS ORDERED: LIDOCAINE 1% INJ 20 ML 20 ML VIAL ONE (11:13)
--- NOTE | 2018-08-19 12:03 | Pre-Procedure Progress Note ---
Pre-Procedure Progress Note H&P Reviewed The H&P was reviewed, patient examined and no changes noted. Date H&P Reviewed: Aug 19, 2018 Time H&P Reviewed: 09:00 Pre-Procedure Diagnosis: Abdominal abscess JUSTINA BARNES MD Aug 19, 2018 12:03
--- NOTE | 2018-08-19 12:31 | Diagnostic Imaging Report ---
INDICATION: Diverticular abscess. Patient presents for CT-guided abscess drain placement. FINDINGS: The patient was brought to the CT suite and placed on the table in the supine position. Axial imaging through the pelvis was performed to evaluate for an appropriate entry site. The skin of the anterior lower abdomen and pelvis was prepped and draped in the usual sterile fashion. A small amount of 1% lidocaine was utilized for local anesthesia. A Yueh needle was advanced into the gas and fluid collection in the midline pelvis anteriorly. The Yueh needle was exchanged over an Amplatz wire. The tract was dilated up to 8 [place]. An 8.5 [place] all-purpose pigtail catheter was then placed into the collection with the loop formed. The inner stiffener and wire were then removed. A total of 60 cc of purulent fluid was aspirated. The catheter was affixed to the patient's skin and placed to a Brant drain. Followup imaging shows good catheter position. The patient tolerated the procedure well and left the Department in stable condition. IMPRESSION: Successful CT-guided all purpose drain placement into the midline lower abdominal abscess, as described. Dictated by: Dictated on workstation # [id number]
[2018-08-19] MEDS: GABAPENTIN 100 MG (NEURONTIN) CAP PO SCH ×2 (12:47→21:48)
[2018-08-19] MEDS: POLYETHYLENE GLYCOL 17 GM (MIRALAX) PACK PO SCH ×2 (12:47→21:48)
[2018-08-19] MEDS: RT-ADVAIR HFA 115/21 MCG PER PUFF IH SCH (15:11)
[2018-08-19] MEDS: AA 4.25% W/LYTES IN D5W IV SOL 1,000 ML IV SCH ×2 (17:05→18:33)
--- NOTE | 2018-08-19 19:16 | Progress Note (SOAP) ---
Subjective Date Seen by a Provider: Aug 19, 2018 Time Seen by a Provider: 19:00 Subjective/Events-last exam doing well. s/p perc drain placement per radiology today. very minimal abd pain. no fever/chills. svitlana diet and having multiple BM's. Objective Exam Vital Signs Date Time Temp Pulse Resp B/P (MAP) Pulse Ox O2 Delivery O2 Flow Rate FiO2 08/19/18 16:36 98.9 68 20 110/61 (77) 95 Room Air 08/19/18 12:00 98.6 52 20 144/72 (96) 98 Room Air 08/19/18 08:35 96.5 53 18 137/72 (93) 94 Room Air 08/19/18 08:00 94 Room Air 08/19/18 04:00 98.6 65 20 114/83 (93) 97 Room Air 08/19/18 00:00 98.2 50 20 132/76 (94) 96 Room Air 08/18/18 19:46 Room Air 08/18/18 19:30 98.6 50 20 125/62 (83) 95 Room Air I & O 08/19/18 07:00 Intake Total 3605 ml Balance 3605 ml Capillary Refill : Less Than 3 Seconds General Appearance: No Apparent Distress HEENT: PERRL/EOMI Neck: Full Range of Motion Respiratory: Chest Non Tender, Lungs Clear, Normal Breath Sounds Cardiovascular: Regular Rate, Rhythm Gastrointestinal: normal bowel sounds, non tender, soft Extremity: Normal Capillary Refill Neurologic/Psychiatric: Alert, Oriented x3 Skin: Normal Color Lymphatic: No Adenopathy Results Lab Microbiology 08/14/18 Blood Culture - Final, Complete No growth 08/14/18 Urine Culture - Final, Complete NO GROWTH Assessment/Plan Assessment/Plan Assess & Plan/Chief Complaint diverticular abscess s/p perc drain placement. low residue diet. will continue drain until around surgery. would like to do OP colonoscopy first to r/o ca then proceed with resection, anastomosis and possible diverting loop ileostomy. Clinical Quality Measures DVT/VTE Risk/Contraindication: Risk Factor Score Per Nursin RFS Level Per Nursing on Admit: 2=Moderate LYDIA GUIDRY MD Aug 19, 2018 7:16 pm
[2018-08-19] MEDS: HYDROcodone/APAP 10 MG/325 MG (LORTAB) TAB PO PRN (21:48)
[2018-08-20] MEDS: AA 4.25% W/LYTES IN D5W IV SOL 1,000 ML IV SCH ×2 (02:07→12:20)
[2018-08-20] MEDS: PIPERACILLIN/TAZO 4.5 GM/NS 100 ML IV SCH ×4 (03:24→11:13)
[2018-08-20 04:00] VITALS: BP 118/74
[2018-08-20 07:59] VITALS: BP 131/75
[2018-08-20] MEDS ORDERED: LACT1CAP87 PO (08:34)
[2018-08-20] MEDS ORDERED: AMOX-358 PO (08:34)
--- NOTE | 2018-08-20 08:37 | D/C HH Face to Face Order ---
D/C Face to Face Orders Instructions for Patient Via [facility], Patient Instructions/FollowUp: FOLLOW UP WITH DR. GUIDRY IN ONE WEEK FROM DISCHARGE FOLLOW UP WITH DR. BILLY IN ONE WEEK FROM DISCHARGE Physician to follow Patient: BREA BILLY Discharge Diet for Home: Soft Diet Patient Problems: DIVERTICULAR ABSCESS CHRONIC STEROID DEPENDENCE CHRONIC BACK PAIN OSTEOARTHRITIS/INFLAMMATORY ARTHRITIS Patient Data-Allergies,Ht & Wt Patient Allergies: Coded Allergies: No Known Drug Allergies (Verified , 08/14/18) Height (Feet): 6 Height (Inches): 3.00 Weight (Pounds): 208 Weight (Ounces): 1.6 Home Health Need/Face to Face Date of Face to Face: Aug 20, 2018 Clinical Findings: Generalized weakness and fatigue, Other-list in note ( PERCUTANEOUS DRAIN FOR DRAINAGE OF INTRA-ABDOMINAL ABSCESS) I have seen Pt [id number]: Yes Discharged To: Home Diagnosis/Conditions: DIVERTICULAR ABSCESS CHRONIC STEROID DEPENDENCE CHRONIC BACK PAIN OSTEOARTHRITIS/INFLAMMATORY ARTHRITIS Patient is Homebound due to: Muscle weakness Homebound Status Due to the above stated illness, injury or surgical procedure (medical condition or diagnosis) and associated clinical findings, the patient is homebound because of his/her inability to leave home except with aid of a supportive device and/or person AND leaving the home requires a considerable and taxing effort or is medically contraindicated. Pt req the following assistanc: Cane Home Health Nursing Orders Home Health Services Order: Nursing Services, Physical Therapy-Evaluate & Treat NURSING TO ASSIST WITH MANAGEMENT OF ABDOMINAL DRAIN - TEACH HOW TO CLEAN, EMPTY DRAIN Home Health Infusion Therapy Line Start Date: Aug 14, 2018 Line Start Time: 1055 Line Type: Peripheral IV Site Location: Hand Therapy Orders Therapy Orders: Physical Therapy Therapy Specific Orders: Increase strength/endurance Certify Stmt I certify that this patient is under my care and that I, a nurse practitioner or a physician; a outpatient physical therapist assistant working with me, had a face to face encounter that - meets the physician face to face encounter requirements with this patient as dated. JAMISON BILLY MD Aug 20, 2018 08:37
--- NOTE | 2018-08-20 08:39 | Discharge Summary ---
Diagnosis/Chief Complaint Date of Admission Aug 14, 2018 at 14:01 Date of Discharge Discharge Date: Aug 20, 2018 Discharge Time: 1200 Admission Diagnosis Admission Diagnosis DIVERTICULAR ABSCESS CHRONIC STEROID DEPENDENCE CHRONIC BACK PAIN OSTEOARTHRITIS/INFLAMMATORY ARTHRITIS Discharge Diagnosis DIVERTICULAR ABSCESS CHRONIC STEROID DEPENDENCE CHRONIC BACK PAIN OSTEOARTHRITIS/INFLAMMATORY ARTHRITIS Discharge Summary Discharge Physical Examination Allergies: Coded Allergies: No Known Drug Allergies (Verified , 08/14/18) Vitals & I&Os Vital Signs Date Time Temp Pulse Resp B/P (MAP) Pulse Ox O2 Delivery O2 Flow Rate FiO2 08/20/18 08:00 96 Room Air 08/20/18 07:59 99.1 63 18 131/75 (93) Discharge Instructions to patient/family Please see electronic discharge instructions given to patient. Discharge Medications Reviewed and agree with Discharge Medication list on patient's Discharge Instruction sheet Clinical Quality Measures DVT/VTE Risk/Contraindication: Risk Factor Score Per Nursin RFS Level Per Nursing on Admit: 2=Moderate JAMISON BILLY MD Aug 20, 2018 08:39
[2018-08-20] MEDS: GABAPENTIN 100 MG (NEURONTIN) CAP PO SCH (08:53)
[2018-08-20] MEDS: HYDROCORTISONE 100 MG/2 ML (Solu-CORTEF) VIAL IV SCH (08:53)
[2018-08-20] MEDS: POLYETHYLENE GLYCOL 17 GM (MIRALAX) PACK PO SCH (08:53)
[2018-08-20] MEDS: HYDROcodone/APAP 10 MG/325 MG (LORTAB) TAB PO PRN (09:01)
[2018-08-20] MEDS: RT-ADVAIR HFA 115/21 MCG PER PUFF IH SCH (09:37)
[2018-08-20 12:00] VITALS: BP 147/77
[2018-08-20 14:10] VITALS: BP 147/77
[2018-08-20 16:10] VITALS: BP 147/77
== END 2018-08-20 16:10 | disposition home health service (06) | DRG 392 ==
LOC: EDUNIT# 10:13 → ER 10:15 → 4TH 14:01
PROVIDERS: ADMIT Internal Medicine; ATTEND Family Medicine
PROC: 0W9J30Z Drainage of Pelvic Cavity with Drainage Device, Percutaneous Approach (ICD-10-PCS; principal; 2018-08-19)
DX: K57.20 Diverticulitis of large intestine with perforation and abscess without bleeding (principal); R35.0 Frequency of micturition; I10 Essential (primary) hypertension; J45.909 Unspecified asthma, uncomplicated; G47.33 Obstructive sleep apnea (adult) (pediatric); M35.9 Systemic involvement of connective tissue, unspecified; M19.91 Primary osteoarthritis, unspecified site; M54.5 Low back pain; G89.29 Other chronic pain; Z87.440 Personal history of urinary (tract) infections; Z85.51 Personal history of malignant neoplasm of bladder; Z85.46 Personal history of malignant neoplasm of prostate; Z85.828 Personal history of other malignant neoplasm of skin; Z90.79 Acquired absence of other genital organ(s); Z79.52 Long term (current) use of systemic steroids
CPT/HCPCS: 36415; 71045; 74177; 77012; 80053; 81000; 82962; 83605; 83880; 85025; 85027; 85610; 85730; 86141; 87040; 87070; 87075; 87088; 87101; 87116; 87205; 87206; 94640; 94760

== ENCOUNTER → 2018-08-22 | Outpatient (CLI) | payer MEDICARE ==
[~2018-08-22] MED LIST changes: +LACT1CAP87 PO
== END ==
LOC: CARD 13:26
PROVIDERS: ATTEND Internal Medicine Cardiovascular Disease
DX: I48.92 Unspecified atrial flutter (principal); I51.7 Cardiomegaly; I34.0 Nonrheumatic mitral (valve) insufficiency; G47.33 Obstructive sleep apnea (adult) (pediatric); R06.02 Shortness of breath
CPT/HCPCS: 93306

== ENCOUNTER → 2018-08-26 | Outpatient (CLI) | payer MEDICARE ==
--- NOTE | 2018-08-26 13:28 | Diagnostic Imaging Report ---
PROCEDURE: CT abdomen and pelvis without contrast. TECHNIQUE: Multiple contiguous axial images were obtained through the abdomen and pelvis without the use of intravenous contrast. INDICATION: Abdominal abscess, status post drain placement. This study is performed for followup. COMPARISON: Correlation is made with prior study from 08/19/2018. FINDINGS: The lung bases are clear. The liver is unremarkable. Gallbladder surgically absent. Pancreas and spleen are unremarkable. No adrenal mass is seen. Kidneys are stable. Aorta is calcified but nonaneurysmal. Percutaneous drain in the midline low abdomen upper pelvis remains in place. No residual abscess is identified. The bladder is decompressed. There is diverticulosis of the sigmoid. Bilateral fat-containing inguinal hernias are seen. There is no ascites. IMPRESSION: Complete resolution of previously noted abscess, status post pigtail percutaneous drain placement. Dictated by: Dictated on workstation # [id number]
== END ==
LOC: RAD 12:05
PROVIDERS: ATTEND Nurse Practitioner Family
DX: K57.92 Diverticulitis of intestine, part unspecified, without perforation or abscess without bleeding (principal); K57.30 Diverticulosis of large intestine without perforation or abscess without bleeding; Z96.89 Presence of other specified functional implants
CPT/HCPCS: 74176

== ENCOUNTER → 2018-09-02 | Outpatient (CLI) | payer MEDICARE ==
[~2018-09-02] MED LIST changes: +IOHEXOL 350 MG/ML 100 ML (OMNIPAQUE 350) VIAL IV ONE; +NS 250 ML (IVPB) BAG IV ONE; +RECEIVED CONTRAST (Hold Metformin) IV SCH
[2018-09-02 12:03] LABS: HEMOGLOBIN 11.6 G/DL (13.3-17.7); RED BLOOD COUNT 4.07 10^6/uL (4.35-5.85); RED CELL DISTRIBUTION WIDTH 14.3 % (10.0-14.5)
[2018-09-02 12:26] LABS: ALANINE AMINOTRANSFERASE 19 U/L (0-55); ALBUMIN 3.7 GM/DL (3.2-4.5); ALKALINE PHOSPHATASE 56 U/L (40-136); BILIRUBIN,TOTAL 0.3 MG/DL (0.1-1.0); BUN/CREATININE RATIO 18; CALCIUM 10.4 MG/DL (8.5-10.1); CARBON DIOXIDE 25 MMOL/L (21-32); CHLORIDE 103 MMOL/L (98-107); CREATININE SERUM 0.99 MG/DL (0.60-1.30); GFR ESTIMATED > 60; GLUCOSE 108 MG/DL (70-105); POTASSIUM 4.1 MMOL/L (3.6-5.0); SODIUM 135 MMOL/L (135-145); TOTAL PROTEIN 6.8 GM/DL (6.4-8.2)
--- NOTE | 2018-09-02 13:47 | Diagnostic Imaging Report ---
PROCEDURE: CT abdomen and pelvis with and without contrast. TECHNIQUE: Precontrast acquisitions were acquired through the abdomen and pelvis. Multiple contiguous axial images were obtained through the abdomen and pelvis after the administration of intravenous contrast. INDICATION: Abdominal pain. Nausea. History of lower abdominal abscess. CORRELATION STUDY: 08/26/2018 FINDINGS: LOWER THORAX: Clear of infiltrate. Coronary artery calcification present. LIVER: Unremarkable. GALLBLADDER: Cholecystectomy. No bile duct dilatation. SPLEEN: Unremarkable. PANCREAS: Fatty atrophic changes. ADRENAL GLANDS: Unremarkable. KIDNEYS: Nearly 6 cm right interpolar renal cyst. Otherwise normal enhancement. No hydronephrosis or obstruction. ABDOMINAL AORTA: Tortuous with mild wall calcification. Nonaneurysmal. GASTROINTESTINAL TRACT: Extensive colonic diverticulosis is noted particularly at the distal colon. Normal appendix present in the right lower quadrant. Mild severity fecal retention. No bowel obstruction. There has been interval removal of the percutaneous drainage catheter of the low anterior midline pelvis. At the previous location of the catheter, there is a small extraluminal gas collection. No definitive currently drainable abscess suggested. Suggestion of some inflammatory changes in this region including thickening of the adjacent sigmoid colon could be reflective of underlying recurrent colitis/diverticulitis. This area also blurs separably with the anterior margins of the urinary bladder superiorly. There is slight wall thickening and tenting of the bladder in this region. A few small bowel loops are also noted in this region. URINARY BLADDER: Apart from the adjacent inflammatory changes otherwise unremarkable. REPRODUCTIVE: Prostate gland not visualized, may be absent. OSSEOUS STRUCTURES: Bony demineralization. Rather advanced multilevel degenerative changes of the lumbar spine. This includes disc space narrowing and hypertrophic facet arthropathy. OTHER: Fat-containing inguinal hernias. IMPRESSION: 1. Interval removal of the low midline percutaneous catheter. There is a small gas collection in this area. There is inflammatory changes in this region as well as adjacent thickening of the colon anderson. Possibility of recurrent or residual inflammatory/infectious process with colitis/diverticulitis not excluded. Currently, no potentially drainable abscess suggested. 2. This gas collection is adjacent to the anterior superior margin of the urinary bladder which does demonstrate slight wall thickening likely reactive in nature. Dictated by: Dictated on workstation # [id number]
== END ==
LOC: RAD 11:52
PROVIDERS: ATTEND Surgery
DX: R14.0 Abdominal distension (gaseous) (principal); R11.0 Nausea; Z87.19 Personal history of other diseases of the digestive system
CPT/HCPCS: 36415; 74178; 80053; 85027

== ENCOUNTER 2018-10-03 11:00 | Outpatient (CLI) | payer MEDICARE ==
[~2018-10-03] VITALS: Ht 190.5 cm; Wt 94.3 kg
[~2018-10-03 11:00] MED LIST changes: -IOHEXOL 350 MG/ML 100 ML (OMNIPAQUE 350) VIAL IV ONE; -NS 250 ML (IVPB) BAG IV ONE; -RECEIVED CONTRAST (Hold Metformin) IV SCH
[2018-10-03] MEDS ORDERED: HYDR-3820 PO (11:04)
== END 2018-10-03 11:59 | disposition home or self-care (01) ==
LOC: PREOP 11:00
PROVIDERS: ATTEND Surgery
DX: Z01.818 Encounter for other preprocedural examination (principal)

== ENCOUNTER 2018-10-09 09:53 | Day surgery (SDC) | payer MEDICARE ==
[~2018-10-09] VITALS: Ht 190.5 cm; Wt 94.3 kg
[2018-10-09] MEDS ORDERED: LIDOCAINE JELLY 2% 6 ML SYRINGE MM PRN (10:15)
[2018-10-09] MEDS ORDERED: MIDAZOLAM 2 MG/2 ML (VERSED) VIAL IVP ONE (10:15)
[2018-10-09] MEDS ORDERED: fentaNYL INJECTION 100 MCG/2 ML AMP IVP ONE (10:15)
[2018-10-09] MEDS ORDERED: NS IV 500 ML 500 ML IV PRN (10:15)
[2018-10-09] MEDS ORDERED: NS IV 500 ML 500 ML ONE (10:16)
[2018-10-09 10:25] VITALS: BP 146/82
[2018-10-09] MEDS ORDERED: fentaNYL INJECTION 100 MCG/2 ML AMP ONE (11:00)
[2018-10-09] MEDS ORDERED: LIDOCAINE JELLY 2% 6 ML SYRINGE ONE (11:00)
[2018-10-09] MEDS ORDERED: MIDAZOLAM 2 MG/2 ML (VERSED) VIAL ONE ×3 (11:00→11:01)
--- NOTE | 2018-10-09 11:04 | Conscious Sedation/ASA ---
Conscious Sedation Pre-Proced Time 10:00 ASA Score 2 For ASA 3 and 4: Consider anesthesia and medical clearance. Also, for patients with a history of failed moderate sedation consider anesthesia. Airway Lungs Heart ASA score ASA 1: a normal healthy patient ASA 2: a patient with a mild systemic disease (mid diabetes, controlled hypertension, obesity ASA 3: a patient with a severe systemic disease that limits activity (angina , COPD, prior Myocardial infarction) ASA 4: a patient with an incapacitating disease that is a constant threat to life (CHF, renal failure) ASA 5: a moribund patient not expected to survive 24 hrs. (ruptured aneurysm) ASA 6: a declared brain patient whose organs are being harvested. For emergent operations, add the letter E after the classification Mallampati Classification Grade 2 Sedation Plan Analgesia, Amnesia, Plan communicated to team members, Discussed options with patient/fam, Discussed risks with patient/fam The patient is an appropriate candidate to undergo the planned procedure, sedation, and anesthesia. The patient immediately re-assessed prior to indication. LYDIA GUIDRY MD Oct 09, 2018 11:04
--- NOTE | 2018-10-09 11:05 | Progress Note-Pre Operative ---
Pre-Operative Progress Note H&P Reviewed The H&P was reviewed, patient examined and no changes noted. Date Seen by Provider: Oct 09, 2018 Time Seen by Provider: 10:00 Date H&P Reviewed: Oct 09, 2018 Time H&P Reviewed: 10:00 Pre-Operative Diagnosis: hx diverticulitis LYDIA GUIDRY MD Oct 09, 2018 11:05
[2018-10-09] MEDS ORDERED: ACETAMINOPHEN 325 MG TABLET PO PRN (11:15)
[2018-10-09] MEDS ORDERED: ONDANSETRON 4 MG/2 ML (SDV) Z0FRAN IV PRN (11:15)
[2018-10-09] MEDS ORDERED: HYDROcodone/APAP 5 MG/325 MG (LORTAB) TAB PO PRN (11:15)
[2018-10-09] MEDS ORDERED: morphine INJ 10 MG/ML 1ML (SYR OR VIAL) IV PRN (11:15)
--- NOTE | 2018-10-09 11:55 | Progress Note-Post Operative ---
Post-Operative Progess Note Surgeon (s)/Bobbin Painter (s) Surgeon LYDIA GUIDRY MD Bobbin Painter: none Pre-Operative Diagnosis hx diverticulitis Post-Operative Diagnosis mild chronic stage 2 ext and int hemorrhoids, severe sigmoid diverticulosis and mild-mod descending colonic diverticulosis, no neoplasms. Procedure & Operative Findings Date of Procedure 10/09/18 Procedure Performed/Findings Colonoscopy Anesthesia Type CS Estimated Blood Loss Estimated blood loss (mL): minimal Specimens/Packing Specimens Removed none LYDIA GUIDRY MD Oct 09, 2018 11:55
--- NOTE | 2018-10-09 11:57 | Discharge Inst-Surgical ---
D/C Lap Instructions-BREA Will call for Follow Up Activity as tolerated Regular Diet Symptoms to Report: Fever over 101 degree F, Nausea/Vomiting Infection Signs and Symptoms to report: Increased redness, Foul odor of wound, Increased drainage Bathing instructions: May shower Operative Area Clean/Dry; Keep incision clean/dry If any problems/questions: Contact your physician or go to Emergency Room LYDIA GUIDRY MD Oct 09, 2018 11:57
[2018-10-09 12:05] VITALS: BP 132/67
[2018-10-09 12:35] VITALS: BP 121/64
[2018-10-09 12:39] VITALS: BP 121/64
--- OUTSIDE RECORDS SUMMARY | 2018-10-09 14:16 | XMS REPORT | Clinical Summary ---
Author Author [facility] Organization [facility] Address Unknown Phone Unavailable Care Team Providers Care Motion Picture Camera Operator Name Role Phone PCP Unavailable Allergies Not [...]
--- OUTSIDE RECORDS SUMMARY | 2018-10-09 14:17 | XMS REPORT | Clinical Summary ---
Author Author [facility] Organization [facility] Address Unknown Phone Unavailable Care Team Providers Care Construction Supervisor Name Role Phone Payton Olivas MD PCP Martín Martinez MD Unavailable Shilpa Akbar MD Unavailable Source Comments Some departments are not documenting in the electronic medical record. If you do not see the information that you expected, contact Release of Information in the Health Information Management department at [phone] for further assistance in locating additional records.[facility] Allergies No Known Allergies Medications End Date Status Medication Sig Dispensed Refills Start Date Active fluticasone/salmeterol Inhale 1 Puff 0 (ADVAIR) 250/50 mcg by mouth inhalation disk Every 12 Hours. Active doxazosin (CARDURA) 4 mg Take 1 Tab by 0 tablet mouth Daily. Active predniSONE (DELTASONE) 10 Take 1 Tab by 0 mg tablet mouth Daily. Active fluticasone (FLONASE) 50 Insert 2 0 mcg/Actuation nasal spray Sprays into nose as directed At Bedtime Daily. Active albuterol (VENTOLIN HFA, Inhale 2 0 PROAIR HFA) 90 Puffs by mcg/Actuation inhaler mouth Daily as needed for Wheezing. Active aspirin 325 mg tablet Take 1 Tab by 0 0 10/24/200 mouth Daily. 9 Active hyoscyamine (LEVSIN/SL) 1 Tab Every 4 30 1 10/24/200 0.125 mg tablet Hours as 9 needed. Active levofloxacin (LEVAQUIN) Take 1 Tab by 21 0 250 mg tablet mouth Daily. 9 Active oxybutynin XL (DITROPAN Take 1 Tab by 20 0 XL) 15 mg tablet mouth Daily. 9 Active oxycodone/acetaminophen Take 1-2 Tabs 40 0 (PERCOCET) 5/325 mg by mouth 9 tablet Every 4 Hours as needed for Pain. Active polymyxin/bacitracin/fina/ Apply to 15g 0 HC (CORTISPORIN) 1 % affected area 9 topical ointment Three Times Daily. Active senna/docusate Take 2 Tabs 60 0 (SENOKOT-S) 8.6/50 mg by mouth 9 tablet Daily. Active bisacodyl (DULCOLAX) 10 Insert or 10 3 mg rectal suppository Apply 1 9 Suppository to rectal area as directed Daily as needed. Abdominal discomfort or constipation. Active Problems Problem Noted Date Prostate cancer 07/17/2009 Atrial flutter 05/26/2009 Immunizations Name Dates Previously Given Next Due FLU VACCINE >3YO 07/16/2009 (Preservative Free) Pneumococcal Vaccine 07/16/2009 (23-[place] Adult) Family History Medical History Relation Name Comments Cancer Father Relation Name Status Comments Father Mother alzhiemers Alive Social History Date Tobacco Use Types Packs/Day Years Used Never Smoker Alcohol Use Drinks/Week oz/Week Comments No Sex Assigned at Date Recorded Not on file Industry Job Start Date Occupation Not on file Not on file Not on file Travel End Travel History Travel Start No recent travel history available. Last Filed Vital Signs Time Taken Vital Sign Reading 07/17/2009 12:00 PM CDT Blood Pressure 135/68 07/17/2009 12:00 PM CDT Pulse 63 07/17/2009 12:00 PM CDT Temperature 36.6 C (97.9 F) - Respiratory Rate - 07/17/2009 12:00 PM CDT Oxygen Saturation 96% - Inhaled Oxygen - Concentration 07/15/2009 11:00 AM CDT Weight 113.9 kg (251 lb 3.2 oz) 07/15/2009 11:00 AM CDT Height 185.4 cm (6' 1") 07/15/2009 11:00 AM CDT Body Mass Index 33.14 Plan of Treatment Health Maintenance Due Date Last Done Comments PHYSICAL (COMPREHENSIVE) 01/06/1947 EXAM DTAP/TDAP VACCINES (1 - 01/06/1958 Tdap) SHINGLES RECOMBINANT 01/06/1990 VACCINE (1 of 2) PNEUMONIA (PCV13/PPSV23) 07/16/2010 07/16/2009 VACCINES (2 of 2 - PCV13) INFLUENZA VACCINE 04/24/2018 07/16/2009 Results Not on filefrom Last 3 Months
--- OUTSIDE RECORDS SUMMARY | 2018-10-09 14:19 | XMS REPORT | CCD ---
Author Author [facility] Organization [facility] Address [address] [place] [address] Phone Care Team Providers Care [employer] Distribution And Emergency Clerk Name Role Phone PP Unavailable CCM Unavailable Summary Purpose Interface Exchange Insurance Providers Payer name Policy type / Coverage type Covered republican ID Effective Begin Date Effective End Date WPS Medicare Part B Medicare Part B [id number] 2015 Unknown AARP Medicare Part B [id number] 2015 Unknown Family history Mother Diagnosis Age At Onset Dementia Unknown Father Diagnosis Age At Onset lung cancer Unknown Social History Social History Element Codes Description Effective Dates Marital status Unknown Michelle 03/24/2015 Number of children Unknown 3 03/24/2015 Employment Unknown Retired 03/24/[address]: 800911772 Never smoker 03/24/[address]: 405949579 Never drinks alcohol 03/24/2015 Allergies, Adverse Reactions, Alerts Substance Reaction Codes Entered Date Inactivated Date Status * NO KNOWN FOOD ALLERGIES Unknown 03/24/2015 No Inactive Date Active * NO KNOWN DRUG ALLERGIES Unknown 03/24/2015 No Inactive Date Active Past Medical History Illness Codes Condition Status Onset Date Resolved Date Diverticulitis of large intestine with perforation and abscess without bleeding ICD-9: 562.11 ICD-10: K57.20 Active 08/26/2018 Unknown Encounter for general adult medical examination with abnormal findings ICD-9: V70.0 ICD-10: Z00.01 Active 08/05/2018 Unknown Other fatigue ICD-9: 780.79 ICD-10: R53.83 Active 07/25/2018 Unknown Other malaise ICD-9: 780.79 ICD-10: R53.81 Active 07/25/2018 Unknown Pain in left wrist ICD -9: 719.43 ICD-10: M25.532 Active 07/25/2018 Unknown Chronic pain syndrome ICD-9: 338.4 ICD-10: G89.4 Active 07/25/2015 Unknown Essential (primary) hypertension ICD-9: 401.1 ICD-10: I10 Active 03/18/2018 Unknown Low back pain ICD-9: 724.2 ICD-10: M54.5 Active 07/23/2016 Unknown Sacroiliitis, not elsewhere classified ICD-9: 720.2 ICD-10: M46.1 Active 03/18/2018 Unknown Spinal instabilities, sacral and sacrococcygeal region ICD-9: 724.6 ICD-10: M53.2X8 Active 03/18/2018 Unknown Allergic rhinitis, unspecified ICD-9: 477.9 ICD-10: J30.9 Active 07/25/2015 Unknown Pain in right knee ICD -9: 719.46 ICD-10: M25.561 Active 11/27/2017 Unknown Essential (primary) hypertension ICD-9: 401.9 ICD-10: I10 Active 07/23/2016 Unknown Vitamin D deficiency, unspecified ICD-9: 268.9 ICD-10: E55.9 Active 07/23/2016 Unknown Olecranon bursitis, right elbow ICD-9: 726.33 ICD-10: M70.21 Active 08/08/2017 Unknown Encounter for general adult medical examination without abnormal findings ICD-9: V70.0 ICD-10: Z00.00 Active 05/22/2017 Unknown Calculus of kidney ICD -9: 592.0 ICD-10: N20.0 Active 11/23/2016 Unknown Dorsalgia, unspecified ICD-9: 724.5 ICD-10: M54.9 Active 11/23/2016 Unknown Nausea ICD-9: 787.02 ICD-10: R11.0 Active 11/10/2016 Unknown Allergic rhinitis due to pollen ICD-9: 477.0 ICD-10: J30.1 Active 09/13/2016 Unknown Other benign neoplasm of skin of unspecified part of face ICD-9: 216.3 ICD-10: D23.30 Active 09/13/2016 Unknown Hypertension Unknown Active 03/24/2015 Unknown CHRONIC PAIN SYNDROME ICD-9: 338.4 Active 03/23/2015 Unknown ESSENTIAL HYPERTENSION ICD-9: 401.9 Active 03/23/2015 Unknown Skin change ICD-9: 782.9 Active 03/23/2015 Unknown Problems Condition Codes Effective Dates Condition Status Diverticulitis of large intestine with perforation and abscess without bleeding ICD-9: 562.11 ICD-10: K57.20 08/26/2018 Active Encounter for general adult medical examination with abnormal findings ICD-9: V70.0 ICD-10: Z00.01 08/05/2018 Active Other fatigue ICD-9: 780.79 ICD-10: R53.83 07/25/2018 Active Other malaise ICD-9: 780.79 ICD-10: R53.81 07/25/2018 Active Pain in left wrist ICD -9: 719.43 ICD-10: M25.532 07/25/2018 Active Chronic pain syndrome ICD-9: 338.4 ICD-10: G89.4 07/25/2015 Active Essential (primary) hypertension ICD-9: 401.1 ICD-10: I10 03/18/2018 Active Low back pain ICD-9: 724.2 ICD-10: M54.5 07/23/2016 Active Sacroiliitis, not elsewhere classified ICD-9: 720.2 ICD-10: M46.1 03/18/2018 Active Spinal instabilities, sacral and sacrococcygeal region ICD-9: 724.6 ICD-10: M53.2X8 03/18/2018 Active Allergic rhinitis, unspecified ICD-9: 477.9 ICD-10: J30.9 07/25/2015 Active Pain in right knee ICD -9: 719.46 ICD-10: M25.561 11/27/2017 Active Essential (primary) hypertension ICD-9: 401.9 ICD-10: I10 07/23/2016 Active Vitamin D deficiency, unspecified ICD-9: 268.9 ICD-10: E55.9 07/23/2016 Active Olecranon bursitis, right elbow ICD-9: 726.33 ICD-10: M70.21 08/08/2017 Active Encounter for general adult medical examination without abnormal findings ICD-9: V70.0 ICD-10: Z00.00 05/22/2017 Active Calculus of kidney ICD -9: 592.0 ICD-10: N20.0 11/23/2016 Active Dorsalgia, unspecified ICD-9: 724.5 ICD-10: M54.9 11/23/2016 Active Nausea ICD-9: 787.02 ICD-10: R11.0 11/10/2016 Active Allergic rhinitis due to pollen ICD-9: 477.0 ICD-10: J30.1 09/13/2016 Active Other benign neoplasm of skin of unspecified part of face ICD-9: 216.3 ICD-10: D23.30 09/13/2016 Active Hypertension Unknown 03/24/2015 Active CHRONIC PAIN SYNDROME ICD-9: 338.4 03/23/2015 Active ESSENTIAL HYPERTENSION ICD-9: 401.9 03/23/2015 Active Skin change ICD-9: 782.9 03/23/2015 Active Medications Medication Codes Instructions Start Date Stop Date Status Fill Instructions hydrocodone 10 mg-acetaminophen 325 mg tablet RxNorm: 921984 1-2 Tablet(s) PO Q6 as needed for pain 09/19/2018 10/03/2018 Active prednisone 10 mg tablet RxNorm: 000959 Tablet(s) TAKE 1 TABLET BY MOUTH DAILY 09/18/2018 12/11/2019 Active - Ref: [id number] Zofran ODT 4 mg disintegrating tablet RxNorm: 832885 DISSOLVE 1 TABLET IN MOUTH THREE TIMES DAILY 08/30/2018 No Stop Date Active Bactrim DS 800 mg-160 mg tablet RxNorm: 595010 1 Tablet(s) PO BID 08/26/2018 09/04/2018 Inactive Bactrim DS 800 mg-160 mg tablet RxNorm: 854653 1 Tablet(s) PO BID 08/26/2018 08/25/2018 Inactive gabapentin 100 mg capsule RxNorm: 743210 1 Capsule(s) PO TID , if not having improvement in sam after 5 day, may increase up to two pills three times daily 08/22/2018 11/19/2018 Active morphine ER 15 mg tablet,extended release RxNorm: 532645 1 Tablet(s) PO BID 08/22/2018 09/20/2018 Active Zofran ODT 4 mg disintegrating tablet RxNorm: 722294 1 Tablet(s) PO TID 07/25/2018 07/29/2018 Inactive prednisone 20 mg tablet RxNorm: 325251 Tablet(s) PO 07/25/2018 08/21/2018 Inactive 60 ,60,40,40,20,20 morphine ER 15 mg tablet,extended release RxNorm: 213615 1 Tablet(s) PO BID 07/22/2018 08/20/2018 Inactive gabapentin 100 mg capsule RxNorm: 073653 1 Capsule(s) PO TID , if not having improvement in sam after 5 day, may increase up to two pills three times daily 07/22/2018 08/20/2018 Inactive ProAir HFA 90 mcg/actuation aerosol inhaler RxNorm: 828697 USE 1 TO 2 PUFFS EVERY 4 TO 6 HOURS NEEDED 07/02/20182018 Active 3 * 8.5 GM=25.5 GM Total - Ref : [id number] hydrocodone 10 mg-acetaminophen 325 mg tablet RxNorm: 742637 1-2 Tablet(s) PO Q6 as needed for pain 06/20/2018 07/04/2018 Inactive hydrocodone 10 mg-acetaminophen 325 mg tablet RxNorm: 929227 1-2 Tablet(s) PO Q6 as needed for pain 05/20/2018 06/03/2018 Inactive hydrocodone 10 mg-acetaminophen 325 mg tablet RxNorm: 975885 1-2 Tablet(s) PO Q6 as needed for pain 04/17/2018 05/01/2018 Inactive Kenalog 40 mg/mL suspension for injection RxNorm: 4860907 1.5 Milliliter(s) Inj 03/18/2018 03/18/2018 Inactive hydrocodone 10 mg-acetaminophen 325 mg tablet RxNorm: 504077 1-2 Tablet(s) PO Q6 as needed for pain 03/18/2018 04/01/2018 Inactive prednisone 20 mg tablet RxNorm: 871024 1 Tablet(s) PO daily 03/22/2018 Inactive prednisone 10 mg tablet RxNorm: 885576 TAKE 1 TABLET BY MOUTH DAILY 03/11/2018 09/17/2018 Inactive - Ref: [id number] Kenalog 40 mg/mL suspension for injection RxNorm: 5753476 1 Milliliter(s) Inj 02/21/2018 02/21/2018 Inactive hydrocodone 10 mg-acetaminophen 325 mg tablet RxNorm: 901334 1-2 Tablet(s) PO Q6 as needed for pain 02/20/2018 03/06/2018 Inactive hydrocodone 10 mg-acetaminophen 325 mg tablet RxNorm: 160615 1-2 Tablet(s) PO Q6 as needed for pain 01/23/2018 02/06/2018 Inactive hydrocodone 10 mg-acetaminophen 325 mg tablet RxNorm: 763336 1-2 Tablet(s) PO Q6 as needed for pain 12/25/2017 01/08/2018 Inactive doxycycline hyclate 100 mg capsule RxNorm: 6656262 1 Capsule(s) PO BID 11/29/2017 12/08/2017 Inactive doxycycline hyclate 100 mg capsule RxNorm: 6631623 1 Capsule(s) PO BID 11/29/2017 11/28/2017 Inactive hydrocodone 10 mg-acetaminophen 325 mg tablet RxNorm: 303342 1-2 Tablet(s) PO Q6 as needed for pain 11/01/2017 11/15/2017 Inactive hydrocodone 10 mg-acetaminophen 325 mg tablet RxNorm: 882521 1-2 Tablet(s) PO Q6 as needed for pain 10/03/2017 10/17/2017 Inactive ProAir HFA 90 mcg/actuation aerosol inhaler RxNorm: 200935 USE 1 TO 2 PUFFS EVERY 4 TO 6 HOURS NEEDED 09/28/20172017 Inactive 3 * 8.5 GM=25.5 GM Total - Ref: [id number] hydrocodone 10 mg-acetaminophen 325 mg tablet RxNorm: 035861 1-2 Tablet(s) PO Q6 as needed for pain 08/30/2017 09/13/2017 Inactive Benicar 20 mg tablet RxNorm: 621178 Tablet(s) TAKE 1 TABLET BY MOUTH DAILY 08/20/2017 08/14/2018 Inactive Benicar 20 mg tablet RxNorm: 838121 TAKE 1 TABLET BY MOUTH DAILY 08/15/2017 08/19/2017 Inactive - Ref: [id number] azithromycin 250 mg tablet RxNorm: 692820 1 Tablet(s) PO UD two tabs on day #1, the one tab daily x 4 doses 08/07/2017 Inactive hydrocodone 10 mg-acetaminophen 325 mg tablet RxNorm: 815563 1-2 Tablet(s) PO Q6 as needed for pain 07/31/2017 08/14/2017 Inactive prednisone 10 mg tablet RxNorm: 880035 TAKE 1 TABLET BY MOUTH DAILY 07/30/2017 01/25/2018 Inactive - Ref: [id number] hydrocodone 10 mg-acetaminophen 325 mg tablet RxNorm: 445978 1-2 Tablet(s) PO Q6 as needed for pain 06/29/2017 07/13/2017 Inactive ProAir HFA 90 mcg/actuation aerosol inhaler RxNorm: 925214 INHALE ONE TO TWO PUFFS BY MOUTH EVERY 4 TO 6 HOURS NEEDED 06/04/2017 07/21/2017 Inactive hydrocodone 10 mg-acetaminophen 325 mg tablet RxNorm: 691937 1-2 1 Tablet(s) PO Q6 as needed for pain 05/22/20172016 Inactive hydrocodone 10 mg-acetaminophen 325 mg tablet RxNorm: 382587 1-2 1 Tablet(s) PO Q6 as needed for pain 04/30/20172016 Inactive hydrocodone 10 mg-acetaminophen 325 mg tablet RxNorm: 735536 1-2 Tablet(s) PO Q6 as needed for pain 03/30/2017 04/13/2017 Inactive Benicar 20 mg tablet RxNorm: 746756 Take 1 tablet by mouth daily 03/22/2017 08/14/2017 Inactive - First Attempt Ref: [id number] hydrocodone 10 mg-acetaminophen 325 mg tablet RxNorm: 186721 1-2 Tablet(s) PO Q6 as needed for pain 03/01/2017 03/15/2017 Inactive Advair Diskus 250 mcg-50 mcg/dose powder for inhalation RxNorm: 2245047 1 INH daily 02/09/2017 02/03/2018 Inactive prednisone 10 mg tablet RxNorm: 057506 Take 1 tablet by mouth daily 02/01/2017 07/29/2017 Inactive - Ref: [id number] hydrocodone 10 mg-acetaminophen 325 mg tablet RxNorm: 389844 1-2 Tablet(s) PO Q6 as needed for pain 02/01/2017 02/15/2017 Inactive hydrocodone 10 mg-acetaminophen 325 mg tablet RxNorm: 813042 1-2 Tablet(s) PO Q6 as needed for pain 01/03/2017 01/17/2017 Inactive hydrocodone 10 mg-acetaminophen 325 mg tablet RxNorm: 996561 1-2 Tablet(s) PO Q6 as needed for pain 12/11/2016 12/25/2016 Inactive prednisone 10 mg tablet RxNorm: 955530 1 Tablet(s) 1 Tablet(s) PO daily 11/10/2016 01/31/2017 Inactive Zofran 4 mg tablet RxNorm: 151157 1 Tablet(s) PO TID 201611/14/2016 Inactive hydrocodone 10 mg-acetaminophen 325 mg tablet RxNorm: 039151 1-2 Tablet(s) PO Q6 as needed for pain 10/31/2016 11/14/2016 Inactive prednisone 10 mg tablet RxNorm: 420676 Take 1 tablet by mouth daily 10/23/2016 03/17/2018 Inactive - Ref: [id number] Advair Diskus 250 mcg-50 mcg/dose powder for inhalation RxNorm: 5972628 1 INH daily 10/13/2016 01/10/2017 Inactive Kenalog 40 mg/mL suspension for injection RxNorm: 4937756 Milliliter(s) Inj 09/14/2016 09/14/2016 Inactive hydrocodone 10 mg-acetaminophen 325 mg tablet RxNorm: 037330 1-2 Tablet(s) PO Q6 as needed for pain 09/11/2016 09/25/2016 Inactive Benicar 20 mg tablet RxNorm: 083981 Take 1 tablet by mouth daily 09/04/2016 03/02/2017 Inactive - First Attempt Ref: [id number] prednisone 10 mg tablet RxNorm: 701570 1 Tablet(s) 1 Tablet(s) PO daily 08/28/2016 10/22/2016 Inactive Vitamin D2 50,000 unit capsule RxNorm: 962346 1 Capsule(s) PO QW 07/28/2016 05/20/2017 Inactive Kenalog 40 mg/mL suspension for injection RxNorm: 1170872 1.5 Milliliter(s) Inj 07/24/2016 07/24/2016 Inactive hydrocodone 10 mg-acetaminophen 325 mg tablet RxNorm: 830345 1-2 Tablet(s) PO Q6 as needed 07/24/2016 09/10/2016 Inactive hydrocodone 10 mg-acetaminophen 325 mg tablet RxNorm: 710043 1-2 Tablet(s) PO Q6 as needed 06/21/2016 07/05/2016 Inactive ProAir HFA 90 mcg/actuation aerosol inhaler RxNorm: 537246 INHALE ONE TO TWO PUFFS BY MOUTH EVERY 4 TO 6 HOURS NEEDED 06/14/2016 07/17/2016 Inactive prednisone 10 mg tablet RxNorm: 511677 Tablet(s) 1 Tablet(s) PO daily 06/14/2016 08/27/2016 Inactive prednisone 10 mg tablet RxNorm: 268002 1 Tablet(s) PO daily 06/13/2016 Inactive ProAir HFA 90 mcg/actuation aerosol inhaler RxNorm: 422573 INHALE ONE TO TWO PUFFS BY MOUTH EVERY 4 TO 6 HOURS NEEDED 06/13/2016 06/13/2016 Inactive hydrocodone 10 mg-acetaminophen 325 mg tablet RxNorm: 896800 1-2 Tablet(s) PO Q6 as needed 05/15/2016 05/29/2016 Inactive hydrocodone 10 mg-acetaminophen 325 mg tablet RxNorm: 726829 1-2 Tablet(s) PO Q6 as needed 04/17/2016 05/01/2016 Inactive Benicar 20 mg tablet RxNorm: 698793 TAKE ONE TABLET BY MOUTH ONCE DAILY 04/13/2016 09/03/2016 Inactive prednisone 10 mg tablet RxNorm: 968436 1 Tablet(s) PO daily 06/12/2016 Inactive hydrocodone 10 mg-acetaminophen 325 mg tablet RxNorm: 636736 1-2 Tablet(s) PO Q6 as needed 03/07/2016 05/14/2016 Inactive hydrocodone 10 mg-acetaminophen 325 mg tablet RxNorm: 378767 1-2 Tablet(s) PO Q6 as needed 03/07/2016 04/16/2016 Inactive Kenalog 40 mg/mL suspension for injection RxNorm: 5012916 Milliliter(s) Inj 01/24/2016 01/24/2016 Inactive hydrocodone 10 mg-acetaminophen 325 mg tablet RxNorm: 879492 1-2 Tablet(s) PO Q6 as needed 01/19/2016 03/06/2016 Inactive hydrocodone 10 mg-acetaminophen 325 mg tablet RxNorm: 087801 1-2 Tablet(s) PO Q6 as needed 11/30/2015 01/18/2016 Inactive hydrocodone 10 mg-acetaminophen 325 mg tablet RxNorm: 856261 1-2 Tablet(s) PO Q6 as needed 09/22/2015 11/29/2015 Inactive prednisone 10 mg tablet RxNorm: 107384 1 Tablet(s) PO daily 11/10/2015 Inactive Vitamin D2 50,000 unit capsule RxNorm: 842115 1 Capsule(s) PO QW 07/28/2015 07/27/2016 Inactive vitamin d 2000 QD Advair Diskus 250 mcg-50 mcg/dose powder for inhalation RxNorm: 6048230 1 INH daily 07/26/2015 08/24/2015 Inactive ProAir HFA 90 mcg/actuation aerosol inhaler RxNorm: 974329 1-2 Puff(s) INH Q4-6H as needed 07/26/2015 11/22/2015 Inactive Kenalog 40 mg/mL suspension for injection RxNorm: 0647322 1 Milliliter(s) Inj daily 07/26/2015 07/26/2015 Inactive hydrocodone 10 mg-acetaminophen 325 mg tablet RxNorm: 528610 1-2 Tablet(s) PO Q6 as needed 07/15/2015 09/21/2015 Inactive prednisone 10 mg tablet RxNorm: 137927 1 Tablet(s) PO daily 11/201408/12/2015 Inactive hydrocodone 10 mg-acetaminophen 325 mg tablet RxNorm: 038364 1-2 Tablet(s) PO Q6 as needed 05/10/2015 07/14/2015 Inactive Benicar 20 mg tablet RxNorm: 358739 1 Tablet(s) PO daily 201403/30/2016 Inactive Vitamin D2 50,000 unit capsule RxNorm: 848617 1 Capsule(s) PO QW 03/25/2015 07/27/2015 Inactive vitamin d 2000 QD fluorouracil 5 % topical cream RxNorm: 634477 1 TOP daily 03/2404/22/2015 Inactive fluorouracil 5 % topical cream RxNorm: 237609 1 TOP daily 03/2403/23/2015 Inactive Efudex 5 % topical cream RxNorm: 480615 1 Application TOP BID to affected skin x 10 days. Let heal and may reapply 03/24/2015 04/22/2015 Inactive ProAir HFA 90 mcg/actuation aerosol inhaler RxNorm: 2257872 1-2 Puff(s) INH Q4-6H as needed 02/18/2015 02/17/2015 Inactive ProAir HFA 90 mcg/actuation aerosol inhaler RxNorm: 2235156 1-2 Puff(s) INH Q4-6H as needed 02/18/2015 06/17/2015 Inactive Vitamin D3 2,000 unit tablet RxNorm: 947081 1 Tablet(s) PO daily No Start Date 05/20/2017 Inactive Benicar 20 mg tablet RxNorm: 897519 1 Tablet(s) PO daily No Start Date 04/05/2015 Inactive Advair Diskus 250 mcg-50 mcg/dose powder for inhalation RxNorm: 7532935 1 INH daily No Start Date 07/25/2015 Inactive Vitamin D2 50,000 unit capsule RxNorm: 851579 1 Capsule(s) PO QW No Start Date 03/24/2015 Inactive vitamin d 2000 QD prednisone 10 mg tablet RxNorm: 612632 1 Tablet(s) PO daily No Start Date 05/26/2015 Inactive azithromycin 250 mg tablet RxNorm: 663296 1 Tablet(s) PO UD two tabs on day #1, the one tab daily x 4 doses No Start Date 08/06/2017 Inactive hydrocodone 10 mg-acetaminophen 325 mg tablet RxNorm: 543628 1-2 Tablet(s) PO Q6 as needed No Start Date 05/09/2015 Inactive Medication Administered Medication Codes Instructions Start Date Status Kenalog 40 mg/mL suspension for injection RxNorm: 1668546 1.5Milliliter 03/18/2018 No longer Active Kenalog 40 mg/mL suspension for injection RxNorm: 7798004 1Milliliter 02/21/2018 No longer Active Kenalog 40 mg/mL suspension for injection RxNorm: 7483593 Milliliter 09/14/2016 No longer Active Kenalog 40 mg/mL suspension for injection RxNorm: 7559489 1.5Milliliter 07/24/2016 No longer Active Kenalog 40 mg/mL suspension for injection RxNorm: 1813450 Milliliter 01/24/2016 No longer Active Kenalog 40 mg/mL suspension for injection RxNorm: 4216847 1Milliliterdaily 07/26/2015 No longer Active Immunizations Vaccine Codes Date Status Influenza CVX: 141 07/19/2018 completed Pneumococcal CVX: 33 07/19/2018 completed Pneumococcal CVX: 133 07/15/2016 completed Tetanus, Diptheria, Pertussis CVX: 113 completed Tetanus/Diptheria CVX: 113 12/23/2014 completed Assessments Condition Codes Effective Dates Diverticulitis of large intestine with perforation and abscess without bleeding ICD-10: K57.20 ICD-9: 562.11 08/26/2018 Encounter for general adult medical examination with abnormal findings ICD-10: Z00.01 ICD-9: V70.0 08/05/2018 Other fatigue ICD-10: R53.83 ICD-9: 780.79 07/25/2018 Other malaise ICD-10: R53.81 ICD-9: 780.79 07/25/2018 Pain in left wrist ICD-10: M25.532 ICD-9: 719.43 07/25/2018 Chronic pain syndrome ICD-10: G89.4 ICD-9: 338.4 07/22/2018 Low back pain ICD-10: M54.5 ICD-9: 724.2 07/22/2018 Essential (primary) hypertension ICD-10: I10 ICD-9: 401.1 07/22/2018 Spinal instabilities, sacral and sacrococcygeal region ICD- 10: M53.2X8 ICD-9: 724.6 03/18/2018 Sacroiliitis, not elsewhere classified ICD-10: M46.1 ICD-9: 720.2 03/18/2018 Allergic rhinitis, unspecified ICD-10: J30.9 ICD-9: 477.9 02/21/2018 Pain in right knee ICD-10: M25.561 ICD-9: 719.46 11/27/2017 Essential (primary) hypertension ICD-10: I10 ICD-9: 401.9 11/19/2017 Vitamin D deficiency, unspecified ICD-10: E55.9 ICD-9: 268.9 11/19/2017 Olecranon bursitis, right elbow ICD-10: M70.21 ICD-9: 726.33 08/08/2017 Encounter for general adult medical examination without abnormal findings ICD-10: Z00.00 ICD-9: V70.0 05/22/2017 Mild intermittent asthma with (acute) exacerbation ICD-10: J45.21 ICD-9: 493.12 11/23/2016 Calculus of kidney ICD-10: N20.0 ICD-9: 592.0 11/23/2016 Nausea ICD-10: R11.0 ICD-9: 787.02 11/10/2016 Allergic rhinitis due to pollen ICD-10: J30.1 ICD-9: 477.0 09/14/2016 Other benign neoplasm of skin of unspecified part of face ICD-10: D23.30 ICD-9: 216.3 09/14/2016 CHRONIC PAIN SYNDROME ICD-9: 338.4 2014 ESSENTIAL HYPERTENSION ICD-9: 401.9 03/24 Skin change ICD-9: 782.9 03/24/2015 Reason For Visit Reason For Visit Effective Dates Notes Hospital Follow Up 08/26/2018 Annual Medicare Wellness Exam 08/05/2018 joint complaint 07/25/2018 back pain 07/22/2018 back pain 03/18/2018 knee pain 11/27/2017 back pain 11/19/2017 elbow pain 08/08/2017 Annual Medicare Wellness Exam 05/22/2017 back pain 05/21/2017 flank pain 11/23/2016 back pain 11/20/2016 nausea 11/10/2016 skin lesion 09/14/2016 back pain 07/24/2016 cough 01/24/2016 hypertension 07/26/2015 hypertension 03/24/2015 Results Observation Observation Code Item Item Code Result Date Carmen [id number] CARMEN (GAY) SCREEN NONE DETECTED 07/27/2018 Sed Rate Ord21 ESR 29 mm/hr 07/26/2018 C-Reactive Protein Qnt Crqnt CRP 5.8 mg/dl 07/25/2018 Ra Factor Umb840 RA FACTOR <10 IU/ml 07/25/2018 Uric Acid Ord77 Uric A 5.2 mg/dL 07/25/2018 Comp Metabolic Ohq743 NA 137 mEq/L 07/25/2018 Comp Metabolic Sqf701 K 3.9 mEq/L 07/25/2018 Comp Metabolic Nxt691 CL 100 mEq/L 07/25/2018 Comp Metabolic Iix587 CO2 28.0 mEq/L 07/25/2018 Comp Metabolic Hqe072 ANION GAP 13 07/25/2018 Comp Metabolic Vap054 GLUCOSE 93 mg/dL 07/25/2018 Comp Metabolic Flt959 Creat 0.8 mg/dL 07/25/2018 Comp Metabolic Nnj666 eGFR 102 ml/min/1.73m2 07/25/2018 Comp Metabolic Urd010 BUN 26 mg/dL 07/25/2018 Comp Metabolic Kxf403 B/C Ratio 33.3 Ratio 07/25/2018 Comp Metabolic Psi670 CALCIUM 9.5 mg/dL 07/25/2018 Comp Metabolic Eny409 ALK PHOS 47 U/L 07/25/2018 Comp Metabolic Snw565 AST(SGOT) 22 U/L 07/25/2018 Comp Metabolic Bwl779 ALT(SGPT) 16 U/L 07/25/2018 Comp Metabolic Pjs545 BILI T 0.6 mg/dL 07/25/2018 Comp Metabolic Spr844 ALBUMIN 3.8 g/dL 07/25/2018 Comp Metabolic Vio173 TPRO 5.9 g/dL 07/25/2018 Comp Metabolic Ata294 GLOB 2.2 g/dL 07/25/2018 Comp Metabolic Mwd356 A/G Ratio 1.7 Ratio 07/25/2018 Comp Metabolic Rzb639 Osmo 278 mOsmo 07/25/2018 Cbc With Differential Ord2 WBC 10.44 K/ul 07/25/2018 Cbc With Differential Ord2 RBC 4.31 M/ul 07/25/2018 Cbc With Differential Ord2 HGB 12.8 g/dl 07/25/2018 Cbc With Differential Ord2 Neut% 70.5 % 07/25/2018 Cbc With Differential Ord2 HCT 39.0 % 07/25/2018 Cbc With Differential Ord2 Lymph% 14.6 % 07/25/2018 Cbc With Differential Ord2 MCV 90.5 fl 07/25/2018 Cbc With Differential Ord2 MCH 29.7 pg 07/25/2018 Cbc With Differential Ord2 [place]% 11.0 % 07/25/2018 Cbc With Differential Ord2 Eos% 3.6 % 07/25/2018 Cbc With Differential Ord2 MCHC 32.8 pg 07/25/2018 Cbc With Differential Ord2 PLT 187 K/ul 07/25/2018 Cbc With Differential Ord2 Baso% 0.3 % 07/25/2018 Cbc With Differential Ord2 RDW 14.7 % 07/25/2018 Cbc With Differential Ord2 Neut ABS# 7.36 K/ul 07/25/2018 Cbc With Differential Ord2 Lymph ABS# 1.52 K/ul 07/25/2018 Cbc With Differential Ord2 [place] ABS# 1.2 K/ul 07/25/2018 Cbc With Differential Ord2 Eos ABS# 0.4 K/ul 07/25/2018 Cbc With Differential Ord2 Baso ABS# 0.0 K/ul 07/25/2018 Lipid Ord30 CHOL 182 mg/dL 11/19/2017 Lipid Ord30 HDL 50.0 mg/dl 11/19/2017 Lipid Ord30 TRIG 138 mg/dL 11/19/2017 Lipid Ord30 LDL 104 mg/dL 11/19/2017 Lipid Ord30 C/HDL 3.6 Ratio 11/19/2017 Cbc With Differential Ord2 WBC 7.64 K/ul 11/19/2017 Cbc With Differential Ord2 RBC 4.36 M/ul 11/19/2017 Cbc With Differential Ord2 HGB 12.8 g/dl 11/19/2017 Cbc With Differential Ord2 HCT 38.4 % 11/19/2017 Cbc With Differential Ord2 Neut% 55.6 % 11/19/2017 Cbc With Differential Ord2 Lymph% 27.1 % 11/19/2017 Cbc With Differential Ord2 MCV 88.1 fl 11/19/2017 Cbc With Differential Ord2 MCH 29.4 pg 11/19/2017 Cbc With Differential Ord2 [place]% 13.9 % 11/19/2017 Cbc With Differential Ord2 Eos% 2.6 % 11/19/2017 Cbc With Differential Ord2 MCHC 33.3 pg 11/19/2017 Cbc With Differential Ord2 PLT 202 K/ul 11/19/2017 Cbc With Differential Ord2 Baso% 0.8 % 11/19/2017 Cbc With Differential Ord2 RDW 14.8 % 11/19/2017 Cbc With Differential Ord2 Neut ABS# 4.25 K/ul 11/19/2017 Cbc With Differential Ord2 Lymph ABS# 2.07 K/ul 11/19/2017 Cbc With Differential Ord2 [place] ABS# 1.1 K/ul 11/19/2017 Cbc With Differential Ord2 Eos ABS# 0.2 K/ul 11/19/2017 Cbc With Differential Ord2 Baso ABS# 0.1 K/ul 11/19/2017 Tsh Ord6 TSH (3rd IS) 1.01 uIU/mL 11/19/2017 Comp Metabolic Jyw593 NA 140 mEq/L 11/19/2017 Comp Metabolic Qly641 K 3.8 mEq/L 11/19/2017 Comp Metabolic Ube890 CL 105 mEq/L 11/19/2017 Comp Metabolic Rry094 CO2 30.0 mEq/L 11/19/2017 Comp Metabolic Tpk294 ANION GAP 9 11/19/2017 Comp Metabolic Mpt034 GLUCOSE 91 mg/dL 11/19/2017 Comp Metabolic Zwi882 Creat 0.6 mg/dL 11/19/2017 Comp Metabolic Ljd904 eGFR 133 ml/min/1.73m2 11/19/2017 Comp Metabolic Etu796 BUN 16 mg/dL 11/19/2017 Comp Metabolic Ilq886 B/C Ratio 25.8 Ratio 11/19/2017 Comp Metabolic Duy214 CALCIUM 9.6 mg/dL 11/19/2017 Comp Metabolic Kwm795 ALK PHOS 46 U/L 11/19/2017 Comp Metabolic Crm326 AST(SGOT) 17 U/L 11/19/2017 Comp Metabolic Qum194 ALT(SGPT) 13 U/L 11/19/2017 Comp Metabolic Efe427 BILI T 0.4 mg/dL 11/19/2017 Comp Metabolic Ruc364 ALBUMIN 3.6 g/dL 11/19/2017 Comp Metabolic Too391 TPRO 5.9 g/dL 11/19/2017 Comp Metabolic Zvf160 GLOB 2.3 g/dL 11/19/2017 Comp Metabolic Zmz337 A/G Ratio 1.6 Ratio 11/19/2017 Comp Metabolic Jxj330 Osmo 280 mOsmo 11/19/2017 Uric Acid Ord77 Uric A 5.5 mg/dL 08/08/2017 Urine Culture Ucult Preliminary NO Growth Day 1 11/27/2016 Urine Culture Ucult Complete NO Growth Day 2 11/27/2016 Vitamin D 25 Oh [id number] VITAMIN D, 25 HYDROXY 28.69 ng/mL Total Psa Ord10 PSA 0.03 ng/mL 07/27/2016 Comp Metabolic Oxi770 NA 138 mEq/L 07/27/2016 Comp Metabolic Ezi498 K 4.1 mEq/L 07/27/2016 Comp Metabolic Ymm559 CL 106 mEq/L 07/27/2016 Comp Metabolic Sui765 CO2 26.0 mEq/L 07/27/2016 Comp Metabolic Hkv222 ANION GAP 10 07/27/2016 Comp Metabolic Oho647 GLUCOSE 102 mg/dL 07/27/2016 Comp Metabolic One677 Creat 0.7 mg/dL 07/27/2016 Comp Metabolic Ccs827 eGFR 125 ml/min/1.73m2 07/27/2016 Comp Metabolic Uzl780 BUN 24 mg/dL 07/27/2016 Comp Metabolic Gmu768 B/C Ratio 36.4 Ratio 07/27/2016 Comp Metabolic Kdy404 CALCIUM 10.2 mg/dL 07/27/2016 Comp Metabolic Twk228 ALK PHOS 41 U/L 07/27/2016 Comp Metabolic Yja940 AST(SGOT) 17 U/L 07/27/2016 Comp Metabolic Rwy161 ALT(SGPT) 14 U/L 07/27/2016 Comp Metabolic Zkk648 BILI T 0.5 mg/dL 07/27/2016 Comp Metabolic Hpd505 ALBUMIN 3.9 g/dL 07/27/2016 Comp Metabolic Pxx268 TPRO 6.3 g/dL 07/27/2016 Comp Metabolic Clh659 GLOB 2.4 g/dL 07/27/2016 Comp Metabolic Fab995 A/G Ratio 1.6 Ratio 07/27/2016 Comp Metabolic Aml056 Osmo 280 mOsmo 07/27/2016 Cbc With Differential Ord2 WBC 8.35 K/ul 07/27/2016 Cbc With Differential Ord2 RBC 4.71 M/ul 07/27/2016 Cbc With Differential Ord2 HGB 13.8 g/dl 07/27/2016 Cbc With Differential Ord2 HCT 41.3 % 07/27/2016 Cbc With Differential Ord2 Neut% 67.3 % 07/27/2016 Cbc With Differential Ord2 Lymph% 21.4 % 07/27/2016 Cbc With Differential Ord2 MCV 87.7 fl 07/27/2016 Cbc With Differential Ord2 MCH 29.3 pg 07/27/2016 Cbc With Differential Ord2 [place]% 10.1 % 07/27/2016 Cbc With Differential Ord2 MCHC 33.4 pg 07/27/2016 Cbc With Differential Ord2 Eos% 0.8 % 07/27/2016 Cbc With Differential Ord2 PLT 187 K/ul 07/27/2016 Cbc With Differential Ord2 Baso% 0.4 % 07/27/2016 Cbc With Differential Ord2 Neut ABS# 5.62 K/ul 07/27/2016 Cbc With Differential Ord2 RDW 14.9 % 07/27/2016 Cbc With Differential Ord2 Lymph ABS# 1.79 K/ul 07/27/2016 Cbc With Differential Ord2 [place] ABS# 0.8 K/ul 07/27/2016 Cbc With Differential Ord2 Eos ABS# 0.1 K/ul 07/27/2016 Cbc With Differential Ord2 Baso ABS# 0.0 K/ul 07/27/2016 Tsh Ord6 hTSH II 1.21 uIU/mL 07/27/2016 Lipid Ord30 CHOL 184 mg/dL 07/27/2016 Lipid Ord30 HDL 53.0 mg/dl 07/27/2016 Lipid Ord30 TRIG 106 mg/dL 07/27/2016 Lipid Ord30 LDL 110 mg/dL 07/27/2016 Lipid Ord30 C/HDL 3.5 Ratio 07/27/2016 Comp Metabolic Qwd464 NA 137 mEq/L 07/26/2015 Comp Metabolic Fgb038 K 3.7 mEq/L 07/26/2015 Comp Metabolic Fek352 CL 103 mEq/L 07/26/2015 Comp Metabolic Izz605 CO2 26.0 mEq/L 07/26/2015 Comp Metabolic Wiw633 ANION GAP 12 07/26/2015 Comp Metabolic Fos627 GLUCOSE 99 mg/dL 07/26/2015 Comp Metabolic Wua570 Creat 0.8 mg/dL 07/26/2015 Comp Metabolic Rif220 eGFR 103 ml/min/1.73m2 07/26/2015 Comp Metabolic Duz845 BUN 22 mg/dL 07/26/2015 Comp Metabolic Epo318 B/C Ratio 28.2 Ratio 07/26/2015 Comp Metabolic Zyx568 CALCIUM 9.7 mg/dL 07/26/2015 Comp Metabolic Nxl633 ALK PHOS 40 U/L 07/26/2015 Comp Metabolic Jeh503 AST(SGOT) 26 U/L 07/26/2015 Comp Metabolic Uiu550 ALT(SGPT) 20 U/L 07/26/2015 Comp Metabolic Mkx856 BILI T 0.5 mg/dL 07/26/2015 Comp Metabolic Hrq453 ALBUMIN 3.9 g/dL 07/26/2015 Comp Metabolic Let080 TPRO 6.4 g/dL 07/26/2015 Comp Metabolic Jus135 GLOB 2.5 g/dL 07/26/2015 Comp Metabolic Lvl479 A/G Ratio 1.6 Ratio 07/26/2015 Comp Metabolic Itz651 Osmo 277 mOsmo 07/26/2015 Tsh Ord6 hTSH II 1.27 uIU/mL 07/26/2015 Cbc With Differential Ord2 WBC 7.2 K/uL 07/26/2015 Cbc With Differential Ord2 LYM 2.3 K/uL 07/26/2015 Cbc With Differential Ord2 LYM% 31.7 % 07/26/2015 Cbc With Differential Ord2 NEUT/GRAN 4.4 K/uL 07/26/2015 Cbc With Differential Ord2 NEUT/GRAN % 60.9 % 07/26/2015 Cbc With Differential Ord2 MID 0.5 K/uL 07/26/2015 Cbc With Differential Ord2 MID% 7.4 % 07/26/2015 Cbc With Differential Ord2 RBC 4.99 M/uL 07/26/2015 Cbc With Differential Ord2 HGB 14.3 g/dL 07/26/2015 Cbc With Differential Ord2 HCT 44.5 % 07/26/2015 Cbc With Differential Ord2 MCV 89 fL 07/26/2015 Cbc With Differential Ord2 MCH 29 pg 07/26/2015 Cbc With Differential Ord2 MCHC 32 g/dL 07/26/2015 Cbc With Differential Ord2 PLT 180 K/uL 07/26/2015 Cbc With Differential Ord2 RDW 15.6 % 07/26/2015 Lipid Ord30 CHOL 187 mg/dL 07/26/2015 Lipid Ord30 HDL 48.0 mg/dl 07/26/2015 Lipid Ord30 TRIG 151 mg/dL 07/26/2015 Lipid Ord30 LDL 109 mg/dL 07/26/2015 Lipid Ord30 C/HDL 3.9 Ratio 07/26/2015 Total Psa Ord10 PSA 0.01 ng/mL 07/26/2015 Vitamin D 25 Oh [id number] VITAMIN D, 25 HYDROXY 31.47 ng/mL Review of Systems System Result Effective Dates Constitutional recent illness 08/26/2018 Constitutional chills 08/26/2018 Constitutional No fever 08/26/2018 Constitutional malaise 08/26/2018 Eyes No eye erythema 08/26/2018 Ears/Nose/Throat/Neck No nasal discharge 08/26/2018 Cardiovascular No chest pain/pressure 11/2017 Respiratory No cough 08/26/2018 Gastrointestinal abdominal pain 2017 Gastrointestinal nausea 08/26/2018 Gastrointestinal No vomiting 08/26/2018 Neurologic No alteration of consciousness 08/26/2018 Neurologic No mental status change 2017 Constitutional No recent illness 2017 Constitutional No chills 08/05/2018 Constitutional No diaphoresis 08/05/2018 Constitutional No fever 08/05/2018 Eyes No eye erythema 08/05/2018 Ears/Nose/Throat/Neck No nasal discharge 08/05/2018 Cardiovascular No chest pain/pressure 08/2018 Cardiovascular No dyspnea 08/05/2018 Respiratory No cough 08/05/2018 Respiratory No dyspnea 08/05/2018 Neurologic No alteration of consciousness 08/05/2018 Neurologic No mental status change 2017 Constitutional recent illness 07/25/2018 Constitutional No chills 07/25/2018 Constitutional No fever 07/25/2018 Eyes No eye erythema 07/25/2018 Eyes No eye discharge 07/25/2018 Eyes No eye pain 07/25/2018 Eyes No vision change 07/25/2018 Ears/Nose/Throat/Neck No dizziness 2017 Ears/Nose/Throat/Neck No headache 2017 Cardiovascular No chest pain/pressure 09/2017 Cardiovascular No edema 07/25/2018 Cardiovascular No fatigue 07/25/2018 Cardiovascular No near-syncope/dizziness 07/25/2018 Respiratory asthma 07/25/2018 Respiratory No chest congestion 2017 Respiratory No dyspnea 07/25/2018 Gastrointestinal No constipation 2017 Gastrointestinal No diarrhea 07/25/2018 Gastrointestinal No nausea 07/25/2018 Gastrointestinal vomiting 07/25/2018 Musculoskeletal No stiffness 07/25/2018 Musculoskeletal No swelling 07/25/2018 Musculoskeletal No back pain 07/25/2018 Neurologic No alteration of consciousness 07/25/2018 Neurologic No memory loss 07/25/2018 Neurologic No vision change 07/25/2018 Neurologic No weakness 07/25/2018 Respiratory No cough 07/25/2018 Gastrointestinal No abdominal pain 2017 Gastrointestinal No melena 07/25/2018 Gastrointestinal No hematochezia 2017 Gastrointestinal No hematemesis 2017 Genitourinary/Nephrology No dysuria 07/25 Musculoskeletal joint complaint 2017 Musculoskeletal No neck pain 07/25/2018 Neurologic No mental status change 2017 Constitutional No recent illness 2017 Constitutional No night sweats 2017 Constitutional No chills 07/22/2018 Constitutional No fever 07/22/2018 Eyes No blindness 07/22/2018 Eyes No eye discharge 07/22/2018 Eyes No eye pain 07/22/2018 Eyes No vision change 07/22/2018 Ears/Nose/Throat/Neck No dizziness 2017 Ears/Nose/Throat/Neck No headache 2017 Cardiovascular No chest pain/pressure Cardiovascular No edema 07/22/2018 Cardiovascular No fatigue 07/22/2018 Cardiovascular No near-syncope/dizziness 07/22/2018 Respiratory asthma 07/22/2018 Respiratory No chest congestion 2017 Respiratory No chest tightness 2017 Respiratory No cigarette smoking 2017 Respiratory No dyspnea 07/22/2018 Gastrointestinal No constipation 2017 Gastrointestinal No diarrhea 07/22/2018 Gastrointestinal No nausea 07/22/2018 Gastrointestinal No vomiting 07/22/2018 Genitourinary/Nephrology No anuria/oliguria 07/22/2018 Genitourinary/Nephrology No dysuria 07/22 Musculoskeletal No stiffness 07/22/2018 Musculoskeletal No swelling 07/22/2018 Musculoskeletal No back pain 07/22/2018 Musculoskeletal bone pain 07/22/2018 Musculoskeletal joint complaint 2017 Musculoskeletal No neck pain 07/22/2018 Neurologic No alteration of consciousness 07/22/2018 Neurologic No memory loss 07/22/2018 Neurologic No vision change 07/22/2018 Neurologic No weakness 07/22/2018 Psychiatric No anxiety 07/22/2018 Psychiatric No depression 07/22/2018 Hematologic/Lymphatic No abnormal bleeding and bruising 07/22/2018 Constitutional No recent illness 2017 Constitutional No fatigue 03/18/2018 Constitutional No fever 03/18/2018 Cardiovascular No chest pain/pressure Respiratory No cough 03/18/2018 Respiratory No chest tightness 2017 Respiratory No dyspnea on exertion 2017 Musculoskeletal back pain 03/18/2018 Constitutional No recent illness 2017 Constitutional No chills 11/27/2017 Constitutional No fever 11/27/2017 Eyes No eye erythema 11/27/2017 Ears/Nose/Throat/Neck No nasal discharge 11/27/2017 Cardiovascular No chest pain/pressure 02/2018 Cardiovascular No dyspnea 11/27/2017 Respiratory No cough 11/27/2017 Respiratory No dyspnea 11/27/2017 Musculoskeletal joint complaint 2017 Neurologic No alteration of consciousness 11/27/2017 Neurologic No mental status change 2017 Constitutional No recent illness 2017 Constitutional No night sweats 2017 Constitutional No chills 11/19/2017 Constitutional No fever 11/19/2017 Eyes No blindness 11/19/2017 Eyes No eye discharge 11/19/2017 Eyes No eye pain 11/19/2017 Eyes No vision change 11/19/2017 Ears/Nose/Throat/Neck No dizziness 2017 Ears/Nose/Throat/Neck No headache 2017 Cardiovascular No chest pain/pressure Cardiovascular No edema 11/19/2017 Cardiovascular No fatigue 11/19/2017 Cardiovascular No near-syncope/dizziness 11/19/2017 Respiratory asthma 11/19/2017 Respiratory No chest congestion 2017 Respiratory No chest tightness 2017 Respiratory No cigarette smoking 2017 Respiratory No dyspnea 11/19/2017 Gastrointestinal No constipation 2017 Gastrointestinal No diarrhea 11/19/2017 Gastrointestinal No nausea 11/19/2017 Gastrointestinal No vomiting 11/19/2017 Genitourinary/Nephrology No anuria/oliguria 11/19/2017 Genitourinary/Nephrology No dysuria 11/19 Musculoskeletal No stiffness 11/19/2017 Musculoskeletal No swelling 11/19/2017 Musculoskeletal No back pain 11/19/2017 Musculoskeletal bone pain 11/19/2017 Musculoskeletal joint complaint 2017 Musculoskeletal No neck pain 11/19/2017 Dermatologic No rash 11/19/2017 Dermatologic sores 11/19/2017 Neurologic No alteration of consciousness 11/19/2017 Neurologic No memory loss 11/19/2017 Neurologic No vision change 11/19/2017 Neurologic No weakness 11/19/2017 Psychiatric No anxiety 11/19/2017 Psychiatric No depression 11/19/2017 Hematologic/Lymphatic No abnormal bleeding and bruising 11/19/2017 Constitutional No recent illness 2016 Constitutional No night sweats 2016 Constitutional No chills 08/08/2017 Constitutional No fever 08/08/2017 Eyes No blindness 08/08/2017 Eyes No eye discharge 08/08/2017 Eyes No eye pain 08/08/2017 Eyes No vision change 08/08/2017 Ears/Nose/Throat/Neck No dizziness 2016 Ears/Nose/Throat/Neck No headache 2016 Ears/Nose/Throat/Neck nasal allergies Cardiovascular No chest pain/pressure Cardiovascular No edema 08/08/2017 Cardiovascular No fatigue 08/08/2017 Cardiovascular No near-syncope/dizziness 08/08/2017 Respiratory asthma 08/08/2017 Respiratory No chest congestion 2016 Respiratory No chest tightness 2016 Respiratory No cigarette smoking 2016 Gastrointestinal constipation 08/08/2017 Gastrointestinal No diarrhea 08/08/2017 Gastrointestinal No nausea 08/08/2017 Gastrointestinal No vomiting 08/08/2017 Musculoskeletal No stiffness 08/08/2017 Musculoskeletal No swelling 08/08/2017 Musculoskeletal back pain 08/08/2017 Musculoskeletal No neck pain 08/08/2017 Dermatologic No rash 08/08/2017 Neurologic No alteration of consciousness 08/08/2017 Neurologic No memory loss 08/08/2017 Neurologic No vision change 08/08/2017 Neurologic No weakness 08/08/2017 Psychiatric No anxiety 08/08/2017 Psychiatric No depression 08/08/2017 Constitutional No recent illness 2016 Constitutional No night sweats 2016 Constitutional No chills 05/22/2017 Constitutional No fever 05/22/2017 Eyes No blindness 05/22/2017 Eyes No eye discharge 05/22/2017 Eyes No eye pain 05/22/2017 Eyes No vision change 05/22/2017 Ears/Nose/Throat/Neck No dizziness 2016 Ears/Nose/Throat/Neck No headache 2016 Ears/Nose/Throat/Neck nasal allergies Cardiovascular No chest pain/pressure Cardiovascular No edema 05/22/2017 Cardiovascular No fatigue 05/22/2017 Cardiovascular No near-syncope/dizziness 05/22/2017 Respiratory asthma 05/22/2017 Respiratory No chest congestion 2016 Respiratory No chest tightness 2016 Respiratory No cigarette smoking 2016 Gastrointestinal constipation 05/22/2017 Gastrointestinal No diarrhea 05/22/2017 Gastrointestinal No nausea 05/22/2017 Gastrointestinal No vomiting 05/22/2017 Musculoskeletal No stiffness 05/22/2017 Musculoskeletal No swelling 05/22/2017 Musculoskeletal back pain 05/22/2017 Musculoskeletal No neck pain 05/22/2017 Dermatologic No rash 05/22/2017 Neurologic No alteration of consciousness 05/22/2017 Neurologic No memory loss 05/22/2017 Neurologic No vision change 05/22/2017 Neurologic No weakness 05/22/2017 Psychiatric No anxiety 05/22/2017 Psychiatric No depression 05/22/2017 Hematologic/Lymphatic No abnormal bleeding and bruising 05/22/2017 Constitutional No recent illness 2016 Constitutional No night sweats 2016 Constitutional No chills 05/21/2017 Constitutional No fever 05/21/2017 Eyes No blindness 05/21/2017 Eyes No eye discharge 05/21/2017 Eyes No eye pain 05/21/2017 Eyes No vision change 05/21/2017 Ears/Nose/Throat/Neck No dizziness 2016 Ears/Nose/Throat/Neck No headache 2016 Cardiovascular No chest pain/pressure Cardiovascular No edema 05/21/2017 Cardiovascular No fatigue 05/21/2017 Cardiovascular No near-syncope/dizziness 05/21/2017 Respiratory asthma 05/21/2017 Respiratory No chest congestion 2016 Respiratory No chest tightness 2016 Respiratory No cigarette smoking 2016 Gastrointestinal No constipation 2016 Gastrointestinal No diarrhea 05/21/2017 Gastrointestinal No nausea 05/21/2017 Gastrointestinal No vomiting 05/21/2017 Musculoskeletal No stiffness 05/21/2017 Musculoskeletal No swelling 05/21/2017 Musculoskeletal back pain 05/21/2017 Musculoskeletal No neck pain 05/21/2017 Dermatologic No rash 05/21/2017 Dermatologic sores 05/21/2017 Neurologic No alteration of consciousness 05/21/2017 Neurologic No memory loss 05/21/2017 Neurologic No vision change 05/21/2017 Neurologic No weakness 05/21/2017 Psychiatric No anxiety 05/21/2017 Psychiatric No depression 05/21/2017 Hematologic/Lymphatic No abnormal bleeding and bruising 05/21/2017 Ears/Nose/Throat/Neck nasal allergies Constitutional No recent illness 2016 Constitutional No fever 11/23/2016 Eyes No eye erythema 11/23/2016 Ears/Nose/Throat/Neck No nasal allergies 11/23/2016 Ears/Nose/Throat/Neck No nasal discharge 11/23/2016 Cardiovascular No chest pain/pressure 10/2016 Cardiovascular No dyspnea 11/23/2016 Respiratory No cough 11/23/2016 Respiratory No dyspnea 11/23/2016 Gastrointestinal No abdominal pain 2016 Gastrointestinal No vomiting 11/23/2016 Gastrointestinal No nausea 11/23/2016 Genitourinary/Nephrology flank pain 11/23 Musculoskeletal No joint complaint 2016 Dermatologic No rash 11/23/2016 Neurologic No alteration of consciousness 11/23/2016 Neurologic No mental status change 2016 Constitutional No recent illness 2016 Constitutional No night sweats 2016 Constitutional No chills 11/20/2016 Constitutional No fever 11/20/2016 Constitutional weight loss 11/20/2016 Eyes No blindness 11/20/2016 Eyes No eye discharge 11/20/2016 Eyes No eye pain 11/20/2016 Eyes No vision change 11/20/2016 Ears/Nose/Throat/Neck No dizziness 2016 Ears/Nose/Throat/Neck No headache 2016 Ears/Nose/Throat/Neck nasal allergies Cardiovascular No chest pain/pressure Cardiovascular No edema 11/20/2016 Cardiovascular No fatigue 11/20/2016 Cardiovascular No near-syncope/dizziness 11/20/2016 Respiratory asthma 11/20/2016 Respiratory No chest congestion 2016 Respiratory No chest tightness 2016 Respiratory No cigarette smoking 2016 Gastrointestinal No constipation 2016 Gastrointestinal No diarrhea 11/20/2016 Gastrointestinal No nausea 11/20/2016 Gastrointestinal No vomiting 11/20/2016 Musculoskeletal No stiffness 11/20/2016 Musculoskeletal No swelling 11/20/2016 Musculoskeletal back pain 11/20/2016 Musculoskeletal bone pain 11/20/2016 Musculoskeletal joint complaint 2016 Musculoskeletal No neck pain 11/20/2016 Dermatologic No rash 11/20/2016 Dermatologic sores 11/20/2016 Neurologic No alteration of consciousness 11/20/2016 Neurologic No memory loss 11/20/2016 Neurologic No vision change 11/20/2016 Neurologic No weakness 11/20/2016 Psychiatric No anxiety 11/20/2016 Psychiatric No depression 11/20/2016 Hematologic/Lymphatic No abnormal bleeding and bruising 11/20/2016 Constitutional recent illness 11/10/2016 Constitutional No chills 11/10/2016 Constitutional No diaphoresis 11/10/2016 Constitutional No fever 11/10/2016 Eyes No eye erythema 11/10/2016 Ears/Nose/Throat/Neck No nasal discharge 11/10/2016 Ears/Nose/Throat/Neck No nasal allergies 11/10/2016 Cardiovascular No chest pain/pressure Cardiovascular No dyspnea 11/10/2016 Cardiovascular No palpitations 2016 Cardiovascular No near-syncope/dizziness 11/10/2016 Respiratory No cough 11/10/2016 Respiratory No chest congestion 2016 Respiratory No dyspnea 11/10/2016 Gastrointestinal No abdominal pain 2016 Gastrointestinal No constipation 2016 Gastrointestinal No diarrhea 11/10/2016 Gastrointestinal No vomiting 11/10/2016 Gastrointestinal nausea 11/10/2016 Gastrointestinal gastroesophageal reflux 11/10/2016 Musculoskeletal No joint complaint 2016 Dermatologic No rash 11/10/2016 Neurologic No alteration of consciousness 11/10/2016 Neurologic No mental status change 2016 Constitutional No recent illness 2015 Constitutional No anorexia 09/14/2016 Constitutional No night sweats 2015 Constitutional No chills 09/14/2016 Constitutional No diaphoresis 09/14/2016 Constitutional No fatigue 09/14/2016 Constitutional No fever 09/14/2016 Constitutional No insomnia 09/14/2016 Constitutional No weight loss 09/14/2016 Constitutional No malaise 09/14/2016 Constitutional No weight gain 09/14/2016 Eyes No eye discharge 09/14/2016 Eyes No eye erythema 09/14/2016 Ears/Nose/Throat/Neck No dizziness 2015 Ears/Nose/Throat/Neck No headache 2015 Ears/Nose/Throat/Neck nasal allergies Ears/Nose/Throat/Neck nasal discharge Cardiovascular No chest pain/pressure Respiratory cough 09/14/2016 Gastrointestinal No abdominal pain 2015 Musculoskeletal No joint complaint 2015 Dermatologic sores 09/14/2016 Constitutional No recent illness 2015 Constitutional No fever 07/24/2016 Constitutional No chills 07/24/2016 Constitutional No night sweats 2015 Constitutional weight loss 07/24/2016 Eyes No eye discharge 07/24/2016 Eyes No blindness 07/24/2016 Eyes No eye pain 07/24/2016 Eyes No vision change 07/24/2016 Ears/Nose/Throat/Neck No dizziness 2015 Ears/Nose/Throat/Neck No headache 2015 Cardiovascular No chest pain/pressure Cardiovascular No edema 07/24/2016 Cardiovascular No fatigue 07/24/2016 Cardiovascular No near-syncope/dizziness 07/24/2016 Respiratory cough 07/24/2016 Respiratory No dyspnea 07/24/2016 Respiratory asthma 07/24/2016 Respiratory No chest tightness 2015 Respiratory No cigarette smoking 2015 Respiratory No chest congestion 2015 Ears/Nose/Throat/Neck nasal allergies Gastrointestinal No constipation 2015 Gastrointestinal No diarrhea 07/24/2016 Gastrointestinal No nausea 07/24/2016 Gastrointestinal No vomiting 07/24/2016 Genitourinary/Nephrology No dysuria 07/24 Genitourinary/Nephrology No anuria/oliguria 07/24/2016 Musculoskeletal No swelling 07/24/2016 Musculoskeletal No back pain 07/24/2016 Musculoskeletal bone pain 07/24/2016 Musculoskeletal joint complaint 2015 Musculoskeletal No stiffness 07/24/2016 Musculoskeletal No neck pain 07/24/2016 Dermatologic sores 07/24/2016 Dermatologic No rash 07/24/2016 Neurologic No alteration of consciousness 07/24/2016 Neurologic No memory loss 07/24/2016 Neurologic No vision change 07/24/2016 Neurologic No weakness 07/24/2016 Psychiatric No anxiety 07/24/2016 Psychiatric No depression 07/24/2016 Hematologic/Lymphatic No abnormal bleeding and bruising 07/24/2016 Constitutional No recent illness 2015 Constitutional No anorexia 01/24/2016 Constitutional No night sweats 2015 Constitutional No chills 01/24/2016 Constitutional No diaphoresis 01/24/2016 Constitutional No fatigue 01/24/2016 Constitutional No fever 01/24/2016 Constitutional No insomnia 01/24/2016 Constitutional No malaise 01/24/2016 Constitutional No weight loss 01/24/2016 Constitutional No weight gain 01/24/2016 Eyes No eye discharge 01/24/2016 Eyes No eye erythema 01/24/2016 Ears/Nose/Throat/Neck No dental pain 10/2015 Ears/Nose/Throat/Neck No headache 2015 Ears/Nose/Throat/Neck nasal allergies 10/2015 Ears/Nose/Throat/Neck nasal discharge 10/2015 Cardiovascular No chest pain/pressure 10/2015 Cardiovascular No dyspnea 01/24/2016 Cardiovascular No edema 01/24/2016 Respiratory asthma 01/24/2016 Respiratory No dyspnea 01/24/2016 Gastrointestinal No abdominal pain 2015 Gastrointestinal No constipation 2015 Gastrointestinal No diarrhea 01/24/2016 Genitourinary/Nephrology No dysuria 01/23 Dermatologic No rash 01/24/2016 Neurologic No alteration of consciousness 01/24/2016 Psychiatric No anxiety 01/24/2016 Psychiatric No depression 01/24/2016 Endocrine No dry or coarse skin 2015 Hematologic/Lymphatic No abnormal ecchymoses 01/24/2016 Musculoskeletal back pain 01/24/2016 Respiratory cough 01/24/2016 Constitutional No recent illness 2014 Constitutional No anorexia 07/26/2015 Constitutional No night sweats 2014 Constitutional No chills 07/26/2015 Constitutional No diaphoresis 07/26/2015 Constitutional No fever 07/26/2015 Constitutional No fatigue 07/26/2015 Constitutional No insomnia 07/26/2015 Constitutional No weight loss 07/26/2015 Constitutional No malaise 07/26/2015 Constitutional No weight gain 07/26/2015 Eyes No eye discharge 07/26/2015 Eyes No eye erythema 07/26/2015 Ears/Nose/Throat/Neck No dental pain 10/2014 Ears/Nose/Throat/Neck No headache 2014 Ears/Nose/Throat/Neck No nasal allergies 07/26/2015 Ears/Nose/Throat/Neck No nasal discharge 07/26/2015 Cardiovascular No chest pain/pressure 10/2014 Cardiovascular No dyspnea 07/26/2015 Cardiovascular No edema 07/26/2015 Respiratory asthma 07/26/2015 Respiratory cough 07/26/2015 Respiratory No dyspnea 07/26/2015 Gastrointestinal No abdominal pain 2014 Gastrointestinal No constipation 2014 Gastrointestinal No diarrhea 07/26/2015 Genitourinary/Nephrology No dysuria 07/26 Musculoskeletal joint complaint 2014 Dermatologic No rash 07/26/2015 Neurologic No alteration of consciousness 07/26/2015 Psychiatric No anxiety 07/26/2015 Psychiatric No depression 07/26/2015 Endocrine No dry or coarse skin 2014 Hematologic/Lymphatic No abnormal ecchymoses 07/26/2015 Ears/Nose/Throat/Neck cerumen 03/24/2015 Cardiovascular No chest pain/pressure 09/2014 Cardiovascular No dyspnea 03/24/2015 Constitutional No recent illness 2014 Constitutional No chills 03/24/2015 Constitutional No fatigue 03/24/2015 Constitutional No fever 03/24/2015 Constitutional No insomnia 03/24/2015 Constitutional No malaise 03/24/2015 Eyes No blindness 03/24/2015 Eyes No vision change 03/24/2015 Ears/Nose/Throat/Neck No dental pain 09/2014 Ears/Nose/Throat/Neck No dizziness 2014 Ears/Nose/Throat/Neck No dysphagia 2014 Ears/Nose/Throat/Neck No headache 2014 Ears/Nose/Throat/Neck No hearing loss 09/2014 Ears/Nose/Throat/Neck No nasal allergies 03/24/2015 Ears/Nose/Throat/Neck No sore throat 09/2014 Ears/Nose/Throat/Neck No postnasal drip 03/24/2015 Ears/Nose/Throat/Neck No sinus congestion 03/24/2015 Cardiovascular No edema 03/24/2015 Cardiovascular No exercise intolerance Cardiovascular No fatigue 03/24/2015 Cardiovascular No near-syncope/dizziness 03/24/2015 Respiratory No chest tightness 2014 Respiratory No cough 03/24/2015 Respiratory No dyspnea 03/24/2015 Respiratory No pedal edema 03/24/2015 Gastrointestinal No abdominal pain 2014 Gastrointestinal No constipation 2014 Gastrointestinal No diarrhea 03/24/2015 Gastrointestinal No gastroesophageal reflux 03/24/2015 Gastrointestinal No nausea 03/24/2015 Gastrointestinal No vomiting 03/24/2015 Genitourinary/Nephrology No dysuria 03/24 Genitourinary/Nephrology No nocturia 09/2014 Genitourinary/Nephrology No urinary incontinence 03/24/2015 Musculoskeletal No stiffness 03/24/2015 Musculoskeletal No swelling 03/24/2015 Musculoskeletal No muscle weakness 2014 Musculoskeletal No myalgias 03/24/2015 Dermatologic No rash 03/24/2015 Dermatologic sores 03/24/2015 Dermatologic No scar 03/24/2015 Neurologic No dizziness 03/24/2015 Neurologic No headache 03/24/2015 Neurologic No neck pain 03/24/2015 Neurologic No syncope 03/24/2015 Psychiatric No anxiety 03/24/2015 Psychiatric No depression 03/24/2015 Dermatologic mole change 03/24/2015 Physical Exam Exam Name System Name Item Name Status Result Effective Dates Notes Full Exam - General 1994 Constitutional general appearance Overall: well developed 08/26/2018 None Full Exam - General 1994 Constitutional general appearance Overall: well nourished 08/26/2018 None Full Exam - General 1994 Constitutional general appearance Evidence of Distress: mild distress 08/26/2018 None Full Exam - General 1994 Constitutional general appearance Evidence of Distress: anxious 08/26/2018 None Full Exam - General 1994 Constitutional general appearance Evidence of Distress: in distress secondary to pain 08/26/2018 None Full Exam - General 1994 Eyes conjunctiva /eyelids Overall: eyelids normal 08/26/2018 None Full Exam - General 1994 Eyes conjunctiva /eyelids Overall: cornea clear 08/26/2018 None Full Exam - General 1994 Eyes conjunctiva /eyelids Overall: conjunctiva clear 08/26/2018 None Full Exam - General 1994 Ears/Nose/Throat lips/teeth/gingiva Overall: benign lips 08/26/2018 None Full Exam - General 1994 Respiratory respiratory effort/rhythm Overall: normal rate 08/26/2018 None Full Exam - General 1994 Respiratory respiratory effort/rhythm Overall: no retractions 08/26/2018 None Full Exam - General 1994 Respiratory auscultation Overall: breath sounds clear bilaterally 08/26/2018 None Full Exam - General 1994 Cardiovascular auscultation of heart Overall: regular rate 08/26/2018 None Full Exam - General 1994 Cardiovascular auscultation of heart Overall: normal heart sounds 08/26/2018 None Full Exam - General 1994 Musculoskeletal head and neck Overall: head atraumatic 08/26/2018 None Full Exam - General 1994 Neurologic cranial nerves Overall: crainial nerves 2 - 12 grossly intact 08/26/2018 None Full Exam - General 1994 Integument inspection of skin Location: abdomen 08/26/2018 low abdomen - drain in place - dressing clean and dry Full Exam - General 1994 Abdomen abdominal exam Upper quadrant: tender to palpation 08/26/2018 None Full Exam - General 1994 Abdomen abdominal exam Upper quadrant: soft 08/26/2018 None Full Exam - General 1994 Abdomen abdominal exam Lower quadrant: tender to palpation 08/26/2018 None Full Exam - General 1994 Abdomen abdominal exam Lower quadrant: soft 08/26/2018 None Full Exam - General 1994 Constitutional general appearance Overall: well developed 08/05/2018 None Full Exam - General 1994 Constitutional general appearance Overall: in no acute distress 08/05/2018 None Full Exam - General 1994 Constitutional general appearance Overall: well nourished 08/05/2018 None Full Exam - General 1994 Eyes conjunctiva /eyelids Overall: conjunctiva clear 08/05/2018 None Full Exam - General 1994 Eyes conjunctiva /eyelids Overall: eyelids normal 08/05/2018 None Full Exam - General 1994 Ears/Nose/Throat lips/teeth/gingiva Overall: benign lips 08/05/2018 None Full Exam - General 1994 Respiratory respiratory effort/rhythm Overall: no retractions 08/05/2018 None Full Exam - General 1994 Respiratory respiratory effort/rhythm Overall: normal rate 08/05/2018 None Full Exam - General 1994 Musculoskeletal head and neck Overall: head atraumatic 08/05/2018 None Full Exam - General 1994 Neurologic cranial nerves Overall: crainial nerves 2 - 12 grossly intact 08/05/2018 None Full Exam - General 1994 Psychiatric orientation/consciousness Overall: oriented to person, place and time 08/05/2018 None Full Exam - General 1994 Psychiatric mood and affect Overall: normal mood and affect 08/05/2018 None Full Exam - General 1994 Psychiatric appearance Overall: well-groomed, good eye contact 08/05/2018 None Full Exam - General 1994 Constitutional general appearance Development: well developed 07/25/2018 None Full Exam - General 1994 Constitutional general appearance Development: appears stated age 1107/25/2018 None Full Exam - General 1994 Constitutional general appearance Hygiene/Attention to Grooming: good hygiene 07/25/2018 None Full Exam - General 1994 Eyes conjunctiva /eyelids Overall: conjunctiva clear 07/25/2018 None Full Exam - General 1994 Eyes conjunctiva /eyelids Overall: cornea clear 07/25/2018 None Full Exam - General 1994 Eyes conjunctiva /eyelids Overall: eyelids normal 07/25/2018 None Full Exam - General 1994 Eyes pupils and irises Overall: pupils equal, round, reactive to light and accomodation 07/25/2018 None Full Exam - General 1994 Ears/Nose/Throat otoscopic exam Overall: external auditory canals clear 07/25/2018 None Full Exam - General 1994 Ears/Nose/Throat otoscopic exam Overall: tympanic membranes clear 07/25/2018 None Full Exam - General 1994 Ears/Nose/Throat lips/teeth/gingiva Overall: benign lips 07/25/2018 None Full Exam - General 1994 Ears/Nose/Throat oral cavity/pharynx/larynx Overall: oral mucosa clear 07/25/2018 None Full Exam - General 1994 Ears/Nose/Throat oral cavity/pharynx/larynx Overall: oropharyngeal mucosa clear 07/25/2018 None Full Exam - General 1994 Respiratory auscultation Diffuse: expiratory wheezes 07/25/2018 faint Full Exam - General 1994 Respiratory respiratory effort/rhythm Overall: no retractions 07/25/2018 None Full Exam - General 1994 Respiratory respiratory effort/rhythm Overall: normal rate 07/25/2018 None Full Exam - General 1994 Cardiovascular extremities Overall: no clubbing 07/25/2018 None Full Exam - General 1994 Cardiovascular auscultation of heart Overall: regular rate 07/25/2018 None Full Exam - General 1994 Cardiovascular auscultation of heart Overall: normal heart sounds 07/25/2018 None Full Exam - General 1994 Abdomen abdominal exam Overall: no tenderness 07/25/2018 None Full Exam - General 1994 Abdomen abdominal exam Overall: normal bowel sounds 07/25/2018 None Full Exam - General 1994 Neurologic cranial nerves Overall: crainial nerves 2 - 12 grossly intact 07/25/2018 None Full Exam - General 1994 Psychiatric orientation/consciousness Overall: oriented to person, place and time 07/25/2018 None Full Exam - General 1994 Psychiatric mood and affect Overall: normal mood and affect 07/25/2018 None Full Exam - General 1994 Musculoskeletal upper extremity Palpation - wrist: tender 07/25/2018 None Full Exam - General 1994 Musculoskeletal upper extremity ROM - wrist: pain with flexion 07/25/2018 None Full Exam - General 1994 Musculoskeletal upper extremity ROM - wrist: decreased extension 07/25/2018 None Full Exam - General 1994 Musculoskeletal upper extremity ROM - wrist: pain with radial bending 07/25/2018 None Full Exam - General 1994 Musculoskeletal upper extremity ROM - wrist: pain with ulnar bending 07/25/2018 None Full Exam - General 1994 Musculoskeletal lower extremity ROM - knee: pain with flexion 07/25/2018 None Full Exam - General 1994 Constitutional general appearance Development: well developed 07/22/2018 None Full Exam - General 1994 Constitutional general appearance Development: appears stated age 1007/22/2018 None Full Exam - General 1994 Constitutional general appearance Hygiene/Attention to Grooming: good hygiene 07/22/2018 None Full Exam - General 1994 Eyes conjunctiva /eyelids Overall: conjunctiva clear 07/22/2018 None Full Exam - General 1994 Eyes conjunctiva /eyelids Overall: cornea clear 07/22/2018 None Full Exam - General 1994 Eyes conjunctiva /eyelids Overall: eyelids normal 07/22/2018 None Full Exam - General 1994 Eyes pupils and irises Overall: pupils equal, round, reactive to light and accomodation 07/22/2018 None Full Exam - General 1994 Ears/Nose/Throat otoscopic exam Overall: external auditory canals clear 07/22/2018 None Full Exam - General 1994 Ears/Nose/Throat otoscopic exam Overall: tympanic membranes clear 07/22/2018 None Full Exam - General 1994 Ears/Nose/Throat lips/teeth/gingiva Overall: benign lips 07/22/2018 None Full Exam - General 1994 Ears/Nose/Throat lips/teeth/gingiva Overall: normal dentition 07/22/2018 None Full Exam - General 1994 Ears/Nose/Throat oral cavity/pharynx/larynx Overall: oral mucosa clear 07/22/2018 None Full Exam - General 1994 Ears/Nose/Throat oral cavity/pharynx/larynx Overall: oropharyngeal mucosa clear 07/22/2018 None Full Exam - General 1994 Ears/Nose/Throat oral cavity/pharynx/larynx Overall: hypopharynx benign 07/22/2018 None Full Exam - General 1994 Ears/Nose/Throat oral cavity/pharynx/larynx Overall: no masses 07/22/2018 None Full Exam - General 1994 Respiratory auscultation Diffuse: expiratory wheezes 07/22/2018 faint Full Exam - General 1994 Respiratory respiratory effort/rhythm Overall: no retractions 07/22/2018 None Full Exam - General 1994 Respiratory respiratory effort/rhythm Overall: normal rate 07/22/2018 None Full Exam - General 1994 Cardiovascular extremities Overall: no clubbing 07/22/2018 None Full Exam - General 1994 Cardiovascular auscultation of heart Overall: regular rate 07/22/2018 None Full Exam - General 1994 Cardiovascular auscultation of heart Overall: normal heart sounds 07/22/2018 None Full Exam - General 1994 Abdomen abdominal exam Overall: no tenderness 07/22/2018 None Full Exam - General 1994 Abdomen abdominal exam Overall: normal bowel sounds 07/22/2018 None Full Exam - General 1994 Neurologic cranial nerves Overall: crainial nerves 2 - 12 grossly intact 07/22/2018 None Full Exam - General 1994 Psychiatric orientation/consciousness Overall: oriented to person, place and time 07/22/2018 None Full Exam - General 1994 Psychiatric mood and affect Overall: normal mood and affect 07/22/2018 None Full Exam - General 1994 Constitutional general appearance Overall: well nourished 03/18/2018 None Full Exam - General 1994 Constitutional general appearance Overall: well developed 03/18/2018 None Full Exam - General 1994 Constitutional general appearance Overall: in no acute distress 03/18/2018 None Full Exam - General 1994 Psychiatric orientation/consciousness Overall: oriented to person, place and time 03/18/2018 None Full Exam - General 1994 Psychiatric mood and affect Mood: happy 03/18/2018 None Full Exam - General 1994 Psychiatric mood and affect Overall: normal mood and affect 03/18/2018 None Full Exam - General 1994 Musculoskeletal spine, ribs and pelvis Sacroiliac joints: tender left sacroiliac joint 03/18/2018 None Full Exam - General 1994 Respiratory auscultation Overall: breath sounds clear bilaterally 03/18/2018 None Full Exam - General 1994 Respiratory respiratory effort/rhythm Overall: normal rate 03/18/2018 None Full Exam - General 1994 Respiratory respiratory effort/rhythm Overall: no retractions 03/18/2018 None Full Exam - General 1994 Cardiovascular auscultation of heart Overall: regular rate 03/18/2018 None Full Exam - General 1994 Cardiovascular auscultation of heart Overall: normal heart sounds 03/18/2018 None Full Exam - General 1994 Cardiovascular auscultation of heart Overall: no murmurs 03/18/2018 None Full Exam - Orthopedics Constitutional general appearance Overall: well nourished 11/27/2017 None Full Exam - Orthopedics Constitutional general appearance Overall: well developed 11/27/2017 None Full Exam - Orthopedics Constitutional general appearance Overall: in no acute distress 11/27/2017 None Full Exam - Orthopedics Eyes conjunctiva/ eyelids Overall: conjunctiva clear 11/27/2017 None Full Exam - Orthopedics Eyes conjunctiva/ eyelids Overall: eyelids normal 11/27/2017 None Full Exam - Orthopedics Ears/Nose/Throat lips/teeth/gingiva Overall: benign lips 11/27/2017 None Full Exam - Orthopedics Ears/Nose/Throat oral cavity/pharynx/larynx Overall: oral mucosa clear 11/27/2017 None Full Exam - Orthopedics Respiratory respiratory effort/rhythm Overall: no retractions 11/27/2017 None Full Exam - Orthopedics Respiratory respiratory effort/rhythm Overall: normal rate 11/27/2017 None Full Exam - Orthopedics Psychiatric orientation/consciousness Overall: oriented to person, place and time 11/27/2017 None Full Exam - Orthopedics Psychiatric mood and affect Overall: normal mood and affect 11/27/2017 None Full Exam - Orthopedics Psychiatric appearance Overall: well-groomed, good eye contact 11/27/2017 None Full Exam - Orthopedics MS: right lower extremity insp & palp - RLE Knee: tenderness over anterior joint line 11/27/2017 None Full Exam - General 1994 Constitutional general appearance Development: well developed 11/19/2017 None Full Exam - General 1994 Constitutional general appearance Development: appears stated age 0211/19/2017 None Full Exam - General 1994 Constitutional general appearance Hygiene/Attention to Grooming: good hygiene 11/19/2017 None Full Exam - General 1994 Eyes conjunctiva /eyelids Overall: conjunctiva clear 11/19/2017 None Full Exam - General 1994 Eyes conjunctiva /eyelids Overall: cornea clear 11/19/2017 None Full Exam - General 1994 Eyes conjunctiva /eyelids Overall: eyelids normal 11/19/2017 None Full Exam - General 1994 Eyes pupils and irises Overall: pupils equal, round, reactive to light and accomodation 11/19/2017 None Full Exam - General 1995 Ears/Nose/Throat otoscopic exam Overall: external auditory canals clear 11/19/2017 None Full Exam - General 1994 Ears/Nose/Throat otoscopic exam Overall: tympanic membranes clear 11/19/2017 None Full Exam - General 1995 Ears/Nose/Throat lips/teeth/gingiva Overall: benign lips 11/19/2017 None Full Exam - General 1995 Ears/Nose/Throat lips/teeth/gingiva Overall: normal dentition 11/19/2017 None Full Exam - General 1994 Ears/Nose/Throat oral cavity/pharynx/larynx Overall: oral mucosa clear 11/19/2017 None Full Exam - General 1994 Ears/Nose/Throat oral cavity/pharynx/larynx Overall: oropharyngeal mucosa clear 11/19/2017 None Full Exam - General 1994 Ears/Nose/Throat oral cavity/pharynx/larynx Overall: hypopharynx benign 11/19/2017 None Full Exam - General 1994 Ears/Nose/Throat oral cavity/pharynx/larynx Overall: no masses 11/19/2017 None Full Exam - General 1994 Respiratory auscultation Diffuse: expiratory wheezes 11/19/2017 faint Full Exam - General 1994 Respiratory respiratory effort/rhythm Overall: no retractions 11/19/2017 None Full Exam - General 1994 Respiratory respiratory effort/rhythm Overall: normal rate 11/19/2017 None Full Exam - General 1994 Cardiovascular extremities Overall: no clubbing 11/19/2017 None Full Exam - General 1994 Cardiovascular auscultation of heart Overall: regular rate 11/19/2017 None Full Exam - General 1994 Cardiovascular auscultation of heart Overall: normal heart sounds 11/19/2017 None Full Exam - General 1994 Abdomen abdominal exam Overall: no tenderness 11/19/2017 None Full Exam - General 1994 Abdomen abdominal exam Overall: normal bowel sounds 11/19/2017 None Full Exam - General 1994 Lymphatic neck nodes Overall: anterior cervical chain benign 11/19/2017 None Full Exam - General 1994 Lymphatic neck nodes Overall: posterior cervical chain benign 11/19/2017 None Full Exam - General 1994 Musculoskeletal spine, ribs and pelvis Overall: spine benign 11/19/2017 None Full Exam - General 1994 Musculoskeletal spine, ribs and pelvis Overall: sacroiliac joint benign 11/19/2017 None Full Exam - General 1994 Musculoskeletal spine, ribs and pelvis Overall: good posture 11/19/2017 None Full Exam - General 1994 Musculoskeletal head and neck Overall: head atraumatic 11/19/2017 None Full Exam - General 1994 Musculoskeletal head and neck Overall: cervical spine benign 11/19/2017 None Full Exam - General 1994 Integument inspection of skin Overall: few scattered moles, no gross abnormalities 11/19/2017 None Full Exam - General 1994 Neurologic deep tendon reflexes Overall: deep tendon reflexes intact 11/19/2017 None Full Exam - General 1994 Neurologic cranial nerves Overall: crainial nerves 2 - 12 grossly intact 11/19/2017 None Full Exam - General 1994 Psychiatric orientation/consciousness Overall: oriented to person, place and time 11/19/2017 None Full Exam - General 1994 Psychiatric mood and affect Overall: normal mood and affect 11/19/2017 None Full Exam - General 1994 Constitutional general appearance Development: well developed 08/08/2017 None Full Exam - General 1994 Constitutional general appearance Development: appears stated age 1108/08/2017 None Full Exam - General 1994 Constitutional general appearance Hygiene/Attention to Grooming: good hygiene 08/08/2017 None Full Exam - General 1994 Eyes conjunctiva /eyelids Overall: conjunctiva clear 08/08/2017 None Full Exam - General 1994 Eyes conjunctiva /eyelids Overall: cornea clear 08/08/2017 None Full Exam - General 1994 Eyes conjunctiva /eyelids Overall: eyelids normal 08/08/2017 None Full Exam - General 1994 Eyes pupils and irises Overall: pupils equal, round, reactive to light and accomodation 08/08/2017 None Full Exam - General 1994 Ears/Nose/Throat otoscopic exam Overall: external auditory canals clear 08/08/2017 None Full Exam - General 1994 Ears/Nose/Throat otoscopic exam Overall: tympanic membranes clear 08/08/2017 None Full Exam - General 1994 Ears/Nose/Throat lips/teeth/gingiva Overall: benign lips 08/08/2017 None Full Exam - General 1994 Ears/Nose/Throat lips/teeth/gingiva Overall: normal dentition 08/08/2017 None Full Exam - General 1994 Ears/Nose/Throat oral cavity/pharynx/larynx Overall: oral mucosa clear 08/08/2017 None Full Exam - General 1994 Ears/Nose/Throat oral cavity/pharynx/larynx Overall: oropharyngeal mucosa clear 08/08/2017 None Full Exam - General 1994 Ears/Nose/Throat oral cavity/pharynx/larynx Overall: hypopharynx benign 08/08/2017 None Full Exam - General 1994 Ears/Nose/Throat oral cavity/pharynx/larynx Overall: no masses 08/08/2017 None Full Exam - General 1994 Respiratory auscultation Diffuse: expiratory wheezes 08/08/2017 faint Full Exam - General 1994 Respiratory respiratory effort/rhythm Overall: no retractions 08/08/2017 None Full Exam - General 1994 Respiratory respiratory effort/rhythm Overall: normal rate 08/08/2017 None Full Exam - General 1994 Cardiovascular extremities Overall: no clubbing 08/08/2017 None Full Exam - General 1994 Cardiovascular auscultation of heart Overall: regular rate 08/08/2017 None Full Exam - General 1994 Cardiovascular auscultation of heart Overall: normal heart sounds 08/08/2017 None Full Exam - General 1994 Lymphatic neck nodes Overall: posterior cervical chain benign 08/08/2017 None Full Exam - General 1994 Musculoskeletal head and neck Overall: head atraumatic 08/08/2017 None Full Exam - General 1994 Musculoskeletal head and neck Overall: cervical spine benign 08/08/2017 None Full Exam - General 1994 Psychiatric orientation/consciousness Overall: oriented to person, place and time 08/08/2017 None Full Exam - General 1994 Psychiatric mood and affect Overall: normal mood and affect 08/08/2017 None Full Exam - General 1994 Lymphatic neck nodes Overall: anterior cervical chain benign 08/08/2017 None Full Exam - General 1994 Musculoskeletal upper extremity Inspection - elbow: olecranon swelling 08/08/2017 None Full Exam - General 1994 Constitutional general appearance Development: well developed 05/22/2017 None Full Exam - General 1994 Constitutional general appearance Development: appears stated age 0805/22/2017 None Full Exam - General 1994 Constitutional general appearance Hygiene/Attention to Grooming: good hygiene 05/22/2017 None Full Exam - General 1994 Eyes conjunctiva /eyelids Overall: conjunctiva clear 05/22/2017 None Full Exam - General 1994 Eyes conjunctiva /eyelids Overall: cornea clear 05/22/2017 None Full Exam - General 1994 Eyes conjunctiva /eyelids Overall: eyelids normal 05/22/2017 None Full Exam - General 1994 Eyes pupils and irises Overall: pupils equal, round, reactive to light and accomodation 05/22/2017 None Full Exam - General 1994 Ears/Nose/Throat otoscopic exam Overall: external auditory canals clear 05/22/2017 None Full Exam - General 1994 Ears/Nose/Throat otoscopic exam Overall: tympanic membranes clear 05/22/2017 None Full Exam - General 1994 Ears/Nose/Throat lips/teeth/gingiva Overall: benign lips 05/22/2017 None Full Exam - General 1994 Ears/Nose/Throat lips/teeth/gingiva Overall: normal dentition 05/22/2017 None Full Exam - General 1994 Ears/Nose/Throat oral cavity/pharynx/larynx Overall: oral mucosa clear 05/22/2017 None Full Exam - General 1994 Ears/Nose/Throat oral cavity/pharynx/larynx Overall: oropharyngeal mucosa clear 05/22/2017 None Full Exam - General 1994 Ears/Nose/Throat oral cavity/pharynx/larynx Overall: hypopharynx benign 05/22/2017 None Full Exam - General 1994 Ears/Nose/Throat oral cavity/pharynx/larynx Overall: no masses 05/22/2017 None Full Exam - General 1994 Respiratory auscultation Diffuse: expiratory wheezes 05/22/2017 faint Full Exam - General 1994 Respiratory respiratory effort/rhythm Overall: no retractions 05/22/2017 None Full Exam - General 1994 Respiratory respiratory effort/rhythm Overall: normal rate 05/22/2017 None Full Exam - General 1994 Cardiovascular extremities Overall: no clubbing 05/22/2017 None Full Exam - General 1994 Cardiovascular auscultation of heart Overall: regular rate 05/22/2017 None Full Exam - General 1994 Cardiovascular auscultation of heart Overall: normal heart sounds 05/22/2017 None Full Exam - General 1994 Abdomen abdominal exam Overall: no tenderness 05/22/2017 None Full Exam - General 1994 Abdomen abdominal exam Overall: normal bowel sounds 05/22/2017 None Full Exam - General 1994 Lymphatic neck nodes Overall: anterior cervical chain benign 05/22/2017 None Full Exam - General 1994 Lymphatic neck nodes Overall: posterior cervical chain benign 05/22/2017 None Full Exam - General 1994 Musculoskeletal spine, ribs and pelvis Overall: spine benign 05/22/2017 None Full Exam - General 1994 Musculoskeletal spine, ribs and pelvis Overall: good posture 05/22/2017 None Full Exam - General 1994 Musculoskeletal head and neck Overall: head atraumatic 05/22/2017 None Full Exam - General 1994 Musculoskeletal head and neck Overall: cervical spine benign 05/22/2017 None Full Exam - General 1994 Integument inspection of skin Overall: few scattered moles, no gross abnormalities 05/22/2017 None Full Exam - General 1994 Neurologic deep tendon reflexes Overall: deep tendon reflexes intact 05/22/2017 None Full Exam - General 1994 Neurologic cranial nerves Overall: crainial nerves 2 - 12 grossly intact 05/22/2017 None Full Exam - General 1994 Psychiatric orientation/consciousness Overall: oriented to person, place and time 05/22/2017 None Full Exam - General 1994 Psychiatric mood and affect Overall: normal mood and affect 05/22/2017 None Full Exam - General 1994 Constitutional general appearance Development: well developed 05/21/2017 None Full Exam - General 1994 Constitutional general appearance Development: appears stated age 0805/21/2017 None Full Exam - General 1994 Constitutional general appearance Hygiene/Attention to Grooming: good hygiene 05/21/2017 None Full Exam - General 1994 Eyes conjunctiva /eyelids Overall: conjunctiva clear 05/21/2017 None Full Exam - General 1994 Eyes conjunctiva /eyelids Overall: cornea clear 05/21/2017 None Full Exam - General 1994 Eyes conjunctiva /eyelids Overall: eyelids normal 05/21/2017 None Full Exam - General 1994 Eyes pupils and irises Overall: pupils equal, round, reactive to light and accomodation 05/21/2017 None Full Exam - General 1994 Ears/Nose/Throat otoscopic exam Overall: external auditory canals clear 05/21/2017 None Full Exam - General 1994 Ears/Nose/Throat otoscopic exam Overall: tympanic membranes clear 05/21/2017 None Full Exam - General 1994 Ears/Nose/Throat lips/teeth/gingiva Overall: benign lips 05/21/2017 None Full Exam - General 1994 Ears/Nose/Throat lips/teeth/gingiva Overall: normal dentition 05/21/2017 None Full Exam - General 1994 Ears/Nose/Throat oral cavity/pharynx/larynx Overall: oral mucosa clear 05/21/2017 None Full Exam - General 1994 Ears/Nose/Throat oral cavity/pharynx/larynx Overall: oropharyngeal mucosa clear 05/21/2017 None Full Exam - General 1994 Ears/Nose/Throat oral cavity/pharynx/larynx Overall: hypopharynx benign 05/21/2017 None Full Exam - General 1994 Ears/Nose/Throat oral cavity/pharynx/larynx Overall: no masses 05/21/2017 None Full Exam - General 1994 Respiratory auscultation Diffuse: expiratory wheezes 05/21/2017 faint Full Exam - General 1994 Respiratory respiratory effort/rhythm Overall: no retractions 05/21/2017 None Full Exam - General 1994 Respiratory respiratory effort/rhythm Overall: normal rate 05/21/2017 None Full Exam - General 1994 Cardiovascular extremities Overall: no clubbing 05/21/2017 None Full Exam - General 1994 Cardiovascular auscultation of heart Overall: regular rate 05/21/2017 None Full Exam - General 1994 Cardiovascular auscultation of heart Overall: normal heart sounds 05/21/2017 None Full Exam - General 1994 Abdomen abdominal exam Overall: no tenderness 05/21/2017 None Full Exam - General 1994 Abdomen abdominal exam Overall: normal bowel sounds 05/21/2017 None Full Exam - General 1994 Lymphatic neck nodes Overall: anterior cervical chain benign 05/21/2017 None Full Exam - General 1994 Lymphatic neck nodes Overall: posterior cervical chain benign 05/21/2017 None Full Exam - General 1994 Musculoskeletal spine, ribs and pelvis Overall: spine benign 05/21/2017 None Full Exam - General 1994 Musculoskeletal spine, ribs and pelvis Overall: good posture 05/21/2017 None Full Exam - General 1994 Musculoskeletal spine, ribs and pelvis Sacroiliac joints: tender right sacroiliac joint 05/21/2017 None Full Exam - General 1994 Musculoskeletal spine, ribs and pelvis Sacroiliac joints: tender left sacroiliac joint 05/21/2017 None Full Exam - General 1994 Musculoskeletal head and neck Overall: head atraumatic 05/21/2017 None Full Exam - General 1994 Musculoskeletal head and neck Overall: cervical spine benign 05/21/2017 None Full Exam - General 1994 Integument inspection of skin Overall: few scattered moles, no gross abnormalities 05/21/2017 None Full Exam - General 1994 Neurologic deep tendon reflexes Overall: deep tendon reflexes intact 05/21/2017 None Full Exam - General 1994 Neurologic cranial nerves Overall: crainial nerves 2 - 12 grossly intact 05/21/2017 None Full Exam - General 1994 Psychiatric orientation/consciousness Overall: oriented to person, place and time 05/21/2017 None Full Exam - General 1994 Psychiatric mood and affect Overall: normal mood and affect 05/21/2017 None Full Exam - General 1994 Constitutional general appearance Overall: well developed 11/23/2016 None Full Exam - General 1994 Constitutional general appearance Overall: in no acute distress 11/23/2016 None Full Exam - General 1994 Constitutional general appearance Overall: well nourished 11/23/2016 None Full Exam - General 1994 Eyes conjunctiva /eyelids Overall: conjunctiva clear 11/23/2016 None Full Exam - General 1994 Eyes conjunctiva /eyelids Overall: eyelids normal 11/23/2016 None Full Exam - General 1994 Ears/Nose/Throat lips/teeth/gingiva Overall: benign lips 11/23/2016 None Full Exam - General 1994 Ears/Nose/Throat oral cavity/pharynx/larynx Overall: oral mucosa clear 11/23/2016 None Full Exam - General 1994 Respiratory auscultation Overall: breath sounds clear bilaterally 11/23/2016 None Full Exam - General 1994 Respiratory respiratory effort/rhythm Overall: no retractions 11/23/2016 None Full Exam - General 1994 Respiratory respiratory effort/rhythm Overall: normal rate 11/23/2016 None Full Exam - General 1994 Cardiovascular auscultation of heart Overall: regular rate 11/23/2016 None Full Exam - General 1994 Cardiovascular auscultation of heart Overall: normal heart sounds 11/23/2016 None Full Exam - General 1994 Abdomen abdominal exam Upper quadrant: dull pain 11/23/2016 Flank pain Full Exam - General 1994 Musculoskeletal head and neck Overall: head atraumatic 11/23/2016 None Full Exam - General 1994 Integument inspection of skin Overall: no rash, lesions 11/23/2016 None Full Exam - General 1994 Neurologic cranial nerves Overall: crainial nerves 2 - 12 grossly intact 11/23/2016 None Full Exam - General 1994 Psychiatric orientation/consciousness Overall: oriented to person, place and time 11/23/2016 None Full Exam - General 1994 Psychiatric mood and affect Overall: normal mood and affect 11/23/2016 None Full Exam - General 1994 Psychiatric appearance Overall: well-groomed, good eye contact 11/23/2016 None Full Exam - General 1994 Constitutional general appearance Development: well developed 11/20/2016 None Full Exam - General 1994 Constitutional general appearance Development: appears stated age 0211/20/2016 None Full Exam - General 1994 Constitutional general appearance Hygiene/Attention to Grooming: good hygiene 11/20/2016 None Full Exam - General 1994 Eyes conjunctiva /eyelids Overall: conjunctiva clear 11/20/2016 None Full Exam - General 1994 Eyes conjunctiva /eyelids Overall: cornea clear 11/20/2016 None Full Exam - General 1994 Eyes conjunctiva /eyelids Overall: eyelids normal 11/20/2016 None Full Exam - General 1994 Eyes pupils and irises Overall: pupils equal, round, reactive to light and accomodation 11/20/2016 None Full Exam - General 1994 Ears/Nose/Throat otoscopic exam Overall: external auditory canals clear 11/20/2016 None Full Exam - General 1994 Ears/Nose/Throat otoscopic exam Overall: tympanic membranes clear 11/20/2016 None Full Exam - General 1994 Ears/Nose/Throat lips/teeth/gingiva Overall: benign lips 11/20/2016 None Full Exam - General 1994 Ears/Nose/Throat lips/teeth/gingiva Overall: normal dentition 11/20/2016 None Full Exam - General 1994 Ears/Nose/Throat oral cavity/pharynx/larynx Overall: oral mucosa clear 11/20/2016 None Full Exam - General 1994 Ears/Nose/Throat oral cavity/pharynx/larynx Overall: oropharyngeal mucosa clear 11/20/2016 None Full Exam - General 1994 Ears/Nose/Throat oral cavity/pharynx/larynx Overall: hypopharynx benign 11/20/2016 None Full Exam - General 1994 Ears/Nose/Throat oral cavity/pharynx/larynx Overall: no masses 11/20/2016 None Full Exam - General 1994 Respiratory auscultation Diffuse: expiratory wheezes 11/20/2016 faint Full Exam - General 1994 Respiratory respiratory effort/rhythm Overall: no retractions 11/20/2016 None Full Exam - General 1994 Respiratory respiratory effort/rhythm Overall: normal rate 11/20/2016 None Full Exam - General 1994 Cardiovascular extremities Overall: no clubbing 11/20/2016 None Full Exam - General 1994 Cardiovascular auscultation of heart Overall: regular rate 11/20/2016 None Full Exam - General 1994 Cardiovascular auscultation of heart Overall: normal heart sounds 11/20/2016 None Full Exam - General 1994 Abdomen abdominal exam Overall: no tenderness 11/20/2016 None Full Exam - General 1994 Abdomen abdominal exam Overall: normal bowel sounds 11/20/2016 None Full Exam - General 1994 Lymphatic neck nodes Overall: anterior cervical chain benign 11/20/2016 None Full Exam - General 1994 Lymphatic neck nodes Overall: posterior cervical chain benign 11/20/2016 None Full Exam - General 1994 Musculoskeletal spine, ribs and pelvis Overall: spine benign 11/20/2016 None Full Exam - General 1994 Musculoskeletal spine, ribs and pelvis Overall: good posture 11/20/2016 None Full Exam - General 1994 Musculoskeletal head and neck Overall: head atraumatic 11/20/2016 None Full Exam - General 1994 Musculoskeletal head and neck Overall: cervical spine benign 11/20/2016 None Full Exam - General 1994 Integument inspection of skin Overall: few scattered moles, no gross abnormalities 11/20/2016 None Full Exam - General 1994 Neurologic deep tendon reflexes Overall: deep tendon reflexes intact 11/20/2016 None Full Exam - General 1994 Neurologic cranial nerves Overall: crainial nerves 2 - 12 grossly intact 11/20/2016 None Full Exam - General 1994 Psychiatric orientation/consciousness Overall: oriented to person, place and time 11/20/2016 None Full Exam - General 1994 Psychiatric mood and affect Overall: normal mood and affect 11/20/2016 None Full Exam - General 1994 Musculoskeletal spine, ribs and pelvis Sacroiliac joints: tender left sacroiliac joint 11/20/2016 None Full Exam - General 1994 Musculoskeletal spine, ribs and pelvis Sacroiliac joints: tender right sacroiliac joint 11/20/2016 None Full Exam - General 1994 Constitutional general appearance Hygiene/Attention to Grooming: good hygiene 11/10/2016 None Full Exam - General 1994 Eyes conjunctiva /eyelids Overall: conjunctiva clear 11/10/2016 None Full Exam - General 1994 Eyes conjunctiva /eyelids Overall: eyelids normal 11/10/2016 None Full Exam - General 1994 Ears/Nose/Throat otoscopic exam Overall: external auditory canals clear 11/10/2016 None Full Exam - General 1994 Ears/Nose/Throat otoscopic exam Overall: tympanic membranes clear 11/10/2016 None Full Exam - General 1994 Ears/Nose/Throat lips/teeth/gingiva Overall: benign lips 11/10/2016 None Full Exam - General 1994 Ears/Nose/Throat lips/teeth/gingiva Overall: normal dentition 11/10/2016 None Full Exam - General 1994 Ears/Nose/Throat oral cavity/pharynx/larynx Overall: oral mucosa clear 11/10/2016 None Full Exam - General 1994 Ears/Nose/Throat oral cavity/pharynx/larynx Overall: oropharyngeal mucosa clear 11/10/2016 None Full Exam - General 1994 Ears/Nose/Throat oral cavity/pharynx/larynx Overall: no masses 11/10/2016 None Full Exam - General 1994 Respiratory respiratory effort/rhythm Overall: no retractions 11/10/2016 None Full Exam - General 1994 Respiratory respiratory effort/rhythm Overall: normal rate 11/10/2016 None Full Exam - General 1994 Cardiovascular extremities Overall: no clubbing 11/10/2016 None Full Exam - General 1994 Cardiovascular auscultation of heart Overall: regular rate 11/10/2016 None Full Exam - General 1994 Cardiovascular auscultation of heart Overall: normal heart sounds 11/10/2016 None Full Exam - General 1994 Abdomen abdominal exam Overall: no tenderness 11/10/2016 None Full Exam - General 1994 Abdomen abdominal exam Overall: normal bowel sounds 11/10/2016 None Full Exam - General 1994 Lymphatic neck nodes Overall: anterior cervical chain benign 11/10/2016 None Full Exam - General 1994 Lymphatic neck nodes Overall: posterior cervical chain benign 11/10/2016 None Full Exam - General 1994 Musculoskeletal spine, ribs and pelvis Overall: good posture 11/10/2016 None Full Exam - General 1994 Musculoskeletal head and neck Overall: head atraumatic 11/10/2016 None Full Exam - General 1994 Integument inspection of skin Overall: few scattered moles, no gross abnormalities 11/10/2016 None Full Exam - General 1994 Neurologic cranial nerves Overall: crainial nerves 2 - 12 grossly intact 11/10/2016 None Full Exam - General 1994 Psychiatric orientation/consciousness Overall: oriented to person, place and time 11/10/2016 None Full Exam - General 1994 Psychiatric mood and affect Overall: normal mood and affect 11/10/2016 None Full Exam - General 1994 Constitutional general appearance Overall: well developed 11/10/2016 None Full Exam - General 1994 Constitutional general appearance Overall: in no acute distress 11/10/2016 None Full Exam - General 1994 Constitutional general appearance Overall: well nourished 11/10/2016 None Full Exam - General 1994 Respiratory auscultation Overall: breath sounds clear bilaterally 11/10/2016 None Full Exam - General 1994 Psychiatric appearance Overall: well-groomed, good eye contact 11/10/2016 None Full Exam - Cardiology Constitutional general appearance Overall: well nourished 09/14/2016 None Full Exam - Cardiology Constitutional general appearance Overall: well developed 09/14/2016 None Full Exam - Cardiology Constitutional general appearance Overall: in no acute distress 09/14/2016 None Full Exam - Cardiology Integument inspection/palpation Location: face 09/14/2016 None Full Exam - Cardiology Integument inspection/palpation Face: nodule 09/14/2016 None Full Exam - Cardiology Respiratory respiratory effort/rhythm Overall: no retractions 09/14/2016 None Full Exam - Cardiology Respiratory respiratory effort/rhythm Overall: normal rate 09/14/2016 None Full Exam - Cardiology Respiratory auscultation Overall: breath sounds clear bilaterally 09/14/2016 None Full Exam - Cardiology Respiratory auscultation Basilar: diminished 09/14/2016 None Full Exam - Cardiology Cardiovascular auscultation of heart Overall: regular rate 09/14/2016 None Full Exam - Cardiology Cardiovascular auscultation of heart Overall: normal heart sounds 09/14/2016 None Full Exam - General 1994 Constitutional general appearance Development: well developed 07/24/2016 None Full Exam - General 1994 Constitutional general appearance Development: appears stated age 1007/24/2016 None Full Exam - General 1994 Constitutional general appearance Hygiene/Attention to Grooming: good hygiene 07/24/2016 None Full Exam - General 1994 Eyes conjunctiva /eyelids Overall: conjunctiva clear 07/24/2016 None Full Exam - General 1994 Eyes conjunctiva /eyelids Overall: cornea clear 07/24/2016 None Full Exam - General 1994 Eyes conjunctiva /eyelids Overall: eyelids normal 07/24/2016 None Full Exam - General 1994 Eyes pupils and irises Overall: pupils equal, round, reactive to light and accomodation 07/24/2016 None Full Exam - General 1994 Ears/Nose/Throat otoscopic exam Overall: external auditory canals clear 07/24/2016 None Full Exam - General 1994 Ears/Nose/Throat otoscopic exam Overall: tympanic membranes clear 07/24/2016 None Full Exam - General 1994 Ears/Nose/Throat lips/teeth/gingiva Overall: benign lips 07/24/2016 None Full Exam - General 1994 Ears/Nose/Throat lips/teeth/gingiva Overall: normal dentition 07/24/2016 None Full Exam - General 1994 Ears/Nose/Throat oral cavity/pharynx/larynx Overall: oral mucosa clear 07/24/2016 None Full Exam - General 1994 Ears/Nose/Throat oral cavity/pharynx/larynx Overall: oropharyngeal mucosa clear 07/24/2016 None Full Exam - General 1994 Ears/Nose/Throat oral cavity/pharynx/larynx Overall: hypopharynx benign 07/24/2016 None Full Exam - General 1994 Ears/Nose/Throat oral cavity/pharynx/larynx Overall: no masses 07/24/2016 None Full Exam - General 1994 Respiratory auscultation Diffuse: expiratory wheezes 07/24/2016 faint Full Exam - General 1994 Respiratory respiratory effort/rhythm Overall: no retractions 07/24/2016 None Full Exam - General 1994 Respiratory respiratory effort/rhythm Overall: normal rate 07/24/2016 None Full Exam - General 1994 Cardiovascular extremities Overall: no clubbing 07/24/2016 None Full Exam - General 1994 Cardiovascular auscultation of heart Overall: regular rate 07/24/2016 None Full Exam - General 1994 Cardiovascular auscultation of heart Overall: normal heart sounds 07/24/2016 None Full Exam - General 1994 Abdomen abdominal exam Overall: no tenderness 07/24/2016 None Full Exam - General 1994 Abdomen abdominal exam Overall: normal bowel sounds 07/24/2016 None Full Exam - General 1994 Lymphatic neck nodes Overall: anterior cervical chain benign 07/24/2016 None Full Exam - General 1994 Lymphatic neck nodes Overall: posterior cervical chain benign 07/24/2016 None Full Exam - General 1994 Musculoskeletal spine, ribs and pelvis Overall: spine benign 07/24/2016 None Full Exam - General 1994 Musculoskeletal spine, ribs and pelvis Overall: sacroiliac joint benign 07/24/2016 None Full Exam - General 1994 Musculoskeletal spine, ribs and pelvis Overall: good posture 07/24/2016 None Full Exam - General 1994 Musculoskeletal head and neck Overall: head atraumatic 07/24/2016 None Full Exam - General 1994 Musculoskeletal head and neck Overall: cervical spine benign 07/24/2016 None Full Exam - General 1994 Integument inspection of skin Overall: few scattered moles, no gross abnormalities 07/24/2016 None Full Exam - General 1994 Neurologic deep tendon reflexes Overall: deep tendon reflexes intact 07/24/2016 None Full Exam - General 1994 Neurologic cranial nerves Overall: crainial nerves 2 - 12 grossly intact 07/24/2016 None Full Exam - General 1994 Psychiatric orientation/consciousness Overall: oriented to person, place and time 07/24/2016 None Full Exam - General 1994 Psychiatric mood and affect Overall: normal mood and affect 07/24/2016 None Full Exam - General 1994 Constitutional general appearance Development: well developed 01/24/2016 None Full Exam - General 1994 Constitutional general appearance Development: appears stated age 0501/24/2016 None Full Exam - General 1994 Constitutional general appearance Hygiene/Attention to Grooming: good hygiene 01/24/2016 None Full Exam - General 1994 Eyes conjunctiva /eyelids Overall: conjunctiva clear 01/24/2016 None Full Exam - General 1994 Eyes conjunctiva /eyelids Overall: cornea clear 01/24/2016 None Full Exam - General 1994 Eyes conjunctiva /eyelids Overall: eyelids normal 01/24/2016 None Full Exam - General 1994 Eyes pupils and irises Overall: pupils equal, round, reactive to light and accomodation 01/24/2016 None Full Exam - General 1994 Ears/Nose/Throat otoscopic exam Overall: external auditory canals clear 01/24/2016 None Full Exam - General 1994 Ears/Nose/Throat otoscopic exam Overall: tympanic membranes clear 01/24/2016 None Full Exam - General 1994 Ears/Nose/Throat lips/teeth/gingiva Overall: benign lips 01/24/2016 None Full Exam - General 1994 Ears/Nose/Throat lips/teeth/gingiva Overall: normal dentition 01/24/2016 None Full Exam - General 1994 Ears/Nose/Throat oral cavity/pharynx/larynx Overall: oral mucosa clear 01/24/2016 None Full Exam - General 1994 Ears/Nose/Throat oral cavity/pharynx/larynx Overall: oropharyngeal mucosa clear 01/24/2016 None Full Exam - General 1994 Ears/Nose/Throat oral cavity/pharynx/larynx Overall: hypopharynx benign 01/24/2016 None Full Exam - General 1994 Ears/Nose/Throat oral cavity/pharynx/larynx Overall: no masses 01/24/2016 None Full Exam - General 1994 Respiratory respiratory effort/rhythm Overall: no retractions 01/24/2016 None Full Exam - General 1994 Respiratory respiratory effort/rhythm Overall: normal rate 01/24/2016 None Full Exam - General 1994 Cardiovascular extremities Overall: no clubbing 01/24/2016 None Full Exam - General 1994 Cardiovascular auscultation of heart Overall: regular rate 01/24/2016 None Full Exam - General 1994 Cardiovascular auscultation of heart Overall: normal heart sounds 01/24/2016 None Full Exam - General 1994 Abdomen abdominal exam Overall: no tenderness 01/24/2016 None Full Exam - General 1994 Abdomen abdominal exam Overall: normal bowel sounds 01/24/2016 None Full Exam - General 1994 Lymphatic neck nodes Overall: anterior cervical chain benign 01/24/2016 None Full Exam - General 1994 Lymphatic neck nodes Overall: posterior cervical chain benign 01/24/2016 None Full Exam - General 1994 Musculoskeletal spine, ribs and pelvis Overall: spine benign 01/24/2016 None Full Exam - General 1994 Musculoskeletal spine, ribs and pelvis Overall: sacroiliac joint benign 01/24/2016 None Full Exam - General 1994 Musculoskeletal spine, ribs and pelvis Overall: good posture 01/24/2016 None Full Exam - General 1994 Musculoskeletal head and neck Overall: head atraumatic 01/24/2016 None Full Exam - General 1994 Musculoskeletal head and neck Overall: cervical spine benign 01/24/2016 None Full Exam - General 1994 Integument inspection of skin Overall: few scattered moles, no gross abnormalities 01/24/2016 None Full Exam - General 1994 Neurologic deep tendon reflexes Overall: deep tendon reflexes intact 01/24/2016 None Full Exam - General 1994 Neurologic cranial nerves Overall: crainial nerves 2 - 12 grossly intact 01/24/2016 None Full Exam - General 1994 Psychiatric orientation/consciousness Overall: oriented to person, place and time 01/24/2016 None Full Exam - General 1994 Psychiatric mood and affect Overall: normal mood and affect 01/24/2016 None Full Exam - General 1994 Respiratory auscultation Diffuse: expiratory wheezes 01/24/2016 faint Full Exam - General 1994 Constitutional general appearance Development: well developed 07/26/2015 None Full Exam - General 1994 Constitutional general appearance Development: appears stated age 1107/26/2015 None Full Exam - General 1994 Constitutional general appearance Hygiene/Attention to Grooming: good hygiene 07/26/2015 None Full Exam - General 1994 Eyes conjunctiva /eyelids Overall: conjunctiva clear 07/26/2015 None Full Exam - General 1994 Eyes conjunctiva /eyelids Overall: cornea clear 07/26/2015 None Full Exam - General 1994 Eyes conjunctiva /eyelids Overall: eyelids normal 07/26/2015 None Full Exam - General 1994 Eyes pupils and irises Overall: pupils equal, round, reactive to light and accomodation 07/26/2015 None Full Exam - General 1994 Ears/Nose/Throat otoscopic exam Overall: external auditory canals clear 07/26/2015 None Full Exam - General 1994 Ears/Nose/Throat otoscopic exam Overall: tympanic membranes clear 07/26/2015 None Full Exam - General 1995 Ears/Nose/Throat lips/teeth/gingiva Overall: benign lips 07/26/2015 None Full Exam - General 1994 Ears/Nose/Throat lips/teeth/gingiva Overall: normal dentition 07/26/2015 None Full Exam - General 1994 Ears/Nose/Throat oral cavity/pharynx/larynx Overall: oral mucosa clear 07/26/2015 None Full Exam - General 1994 Ears/Nose/Throat oral cavity/pharynx/larynx Overall: oropharyngeal mucosa clear 07/26/2015 None Full Exam - General 1994 Ears/Nose/Throat oral cavity/pharynx/larynx Overall: hypopharynx benign 07/26/2015 None Full Exam - General 1994 Ears/Nose/Throat oral cavity/pharynx/larynx Overall: no masses 07/26/2015 None Full Exam - General 1994 Respiratory auscultation Overall: breath sounds clear bilaterally 07/26/2015 None Full Exam - General 1994 Respiratory respiratory effort/rhythm Overall: no retractions 07/26/2015 None Full Exam - General 1994 Respiratory respiratory effort/rhythm Overall: normal rate 07/26/2015 None Full Exam - General 1994 Cardiovascular extremities Overall: no clubbing 07/26/2015 None Full Exam - General 1994 Cardiovascular auscultation of heart Overall: regular rate 07/26/2015 None Full Exam - General 1994 Cardiovascular auscultation of heart Overall: normal heart sounds 07/26/2015 None Full Exam - General 1994 Abdomen abdominal exam Overall: no tenderness 07/26/2015 None Full Exam - General 1994 Abdomen abdominal exam Overall: normal bowel sounds 07/26/2015 None Full Exam - General 1994 Lymphatic neck nodes Overall: anterior cervical chain benign 07/26/2015 None Full Exam - General 1994 Lymphatic neck nodes Overall: posterior cervical chain benign 07/26/2015 None Full Exam - General 1994 Musculoskeletal spine, ribs and pelvis Overall: spine benign 07/26/2015 None Full Exam - General 1994 Musculoskeletal spine, ribs and pelvis Overall: sacroiliac joint benign 07/26/2015 None Full Exam - General 1994 Musculoskeletal spine, ribs and pelvis Overall: good posture 07/26/2015 None Full Exam - General 1994 Musculoskeletal head and neck Overall: head atraumatic 07/26/2015 None Full Exam - General 1994 Musculoskeletal head and neck Overall: cervical spine benign 07/26/2015 None Full Exam - General 1994 Neurologic deep tendon reflexes Overall: deep tendon reflexes intact 07/26/2015 None Full Exam - General 1994 Neurologic cranial nerves Overall: crainial nerves 2 - 12 grossly intact 07/26/2015 None Full Exam - General 1994 Psychiatric orientation/consciousness Overall: oriented to person, place and time 07/26/2015 None Full Exam - General 1994 Psychiatric mood and affect Overall: normal mood and affect 07/26/2015 None Full Exam - General 1994 Integument inspection of skin Overall: few scattered moles, no gross abnormalities 07/26/2015 None Full Exam - General 1994 Constitutional general appearance Development: well developed 03/24/2015 None Full Exam - General 1994 Constitutional general appearance Development: appears stated age 0703/24/2015 None Full Exam - General 1994 Constitutional general appearance Hygiene/Attention to Grooming: good hygiene 03/24/2015 None Full Exam - General 1994 Eyes conjunctiva /eyelids Overall: conjunctiva clear 03/24/2015 None Full Exam - General 1994 Eyes conjunctiva /eyelids Overall: cornea clear 03/24/2015 None Full Exam - General 1994 Eyes conjunctiva /eyelids Overall: eyelids normal 03/24/2015 None Full Exam - General 1994 Eyes pupils and irises Overall: pupils equal, round, reactive to light and accomodation 03/24/2015 None Full Exam - General 1994 Ears/Nose/Throat otoscopic exam Overall: external auditory canals clear 03/24/2015 None Full Exam - General 1994 Ears/Nose/Throat otoscopic exam Overall: tympanic membranes clear 03/24/2015 None Full Exam - General 1994 Ears/Nose/Throat lips/teeth/gingiva Overall: benign lips 03/24/2015 None Full Exam - General 1994 Ears/Nose/Throat lips/teeth/gingiva Overall: normal dentition 03/24/2015 None Full Exam - General 1994 Ears/Nose/Throat oral cavity/pharynx/larynx Overall: oral mucosa clear 03/24/2015 None Full Exam - General 1994 Ears/Nose/Throat oral cavity/pharynx/larynx Overall: oropharyngeal mucosa clear 03/24/2015 None Full Exam - General 1994 Ears/Nose/Throat oral cavity/pharynx/larynx Overall: hypopharynx benign 03/24/2015 None Full Exam - General 1994 Ears/Nose/Throat oral cavity/pharynx/larynx Overall: no masses 03/24/2015 None Full Exam - General 1994 Respiratory auscultation Overall: breath sounds clear bilaterally 03/24/2015 None Full Exam - General 1994 Respiratory respiratory effort/rhythm Overall: no retractions 03/24/2015 None Full Exam - General 1994 Respiratory respiratory effort/rhythm Overall: normal rate 03/24/2015 None Full Exam - General 1994 Cardiovascular extremities Overall: no clubbing 03/24/2015 None Full Exam - General 1994 Cardiovascular auscultation of heart Overall: regular rate 03/24/2015 None Full Exam - General 1994 Cardiovascular auscultation of heart Overall: normal heart sounds 03/24/2015 None Full Exam - General 1994 Abdomen abdominal exam Overall: no tenderness 03/24/2015 None Full Exam - General 1994 Abdomen abdominal exam Overall: normal bowel sounds 03/24/2015 None Full Exam - General 1994 Lymphatic neck nodes Overall: anterior cervical chain benign 03/24/2015 None Full Exam - General 1994 Lymphatic neck nodes Overall: posterior cervical chain benign 03/24/2015 None Full Exam - General 1994 Musculoskeletal spine, ribs and pelvis Overall: spine benign 03/24/2015 None Full Exam - General 1994 Musculoskeletal spine, ribs and pelvis Overall: sacroiliac joint benign 03/24/2015 None Full Exam - General 1994 Musculoskeletal spine, ribs and pelvis Overall: good posture 03/24/2015 None Full Exam - General 1994 Musculoskeletal head and neck Overall: head atraumatic 03/24/2015 None Full Exam - General 1994 Musculoskeletal head and neck Overall: cervical spine benign 03/24/2015 None Full Exam - General 1994 Neurologic deep tendon reflexes Overall: deep tendon reflexes intact 03/24/2015 None Full Exam - General 1994 Neurologic cranial nerves Overall: crainial nerves 2 - 12 grossly intact 03/24/2015 None Full Exam - General 1994 Psychiatric orientation/consciousness Overall: oriented to person, place and time 03/24/2015 None Full Exam - General 1994 Psychiatric mood and affect Overall: normal mood and affect 03/24/2015 None Full Exam - General 1994 Integument inspection of skin Rash/Lesions: ulceration 03/24/2015 on face/scalp Procedures Procedure Codes Date PPPS, SUBSEQ VISIT CPT -4: G0439 08/05/2018 DRAIN/INJECT JOINT/BURSA CPT-4: 60577 03/18/2018 TRIAMCINOLONE ACET INJ NOS CPT-4: J3301 03/18/2018 THER/PROPH/DIAG INJ SC/IM CPT-4: 80043 02/21/2018 TRIAMCINOLONE ACET INJ NOS CPT-4: J3301 02/21/2018 PPPS, SUBSEQ VISIT CPT -4: G0439 05/22/2017 TRIAMCINOLONE ACET INJ NOS CPT-4: J3301 09/14/2016 TRIAMCINOLONE ACET INJ NOS CPT-4: J3301 07/24/2016 THER/PROPH/DIAG INJ SC/IM CPT-4: 99620 07/24/2016 TRIAMCINOLONE ACET INJ NOS CPT-4: J3301 01/24/2016 TRIAMCINOLONE ACET INJ NOS CPT-4: J3301 07/26/2015 THER/PROPH/DIAG INJ SC/IM CPT-4: 09297 07/26/2015 Vital Signs Date Vital 08/26/2018 Blood Pressure 1: 166/84 Code : 8480-6 Heart Rate 1: 80 bpm Height: 6'4" SpO2: 98% Temperature: 36.7 (C) / 98.1 (F) Weight: 08/05/2018 Blood Pressure 1: 118/64 Code : 8480-6 BMI: 26.2 Code : 83466-6 Heart Rate 1 : 66 bpm Height: 6'4" SpO2: 97% Waist Measure (cm): 81 cm Weight: 215 lbs 07/25/2018 Blood Pressure 1: 128/78 Code : 8480-6 BMI: 26.2 Code : 70210-2 Heart Rate 1 : 68 bpm Height: 6'4" SpO2: 95% Weight: 215 lbs 07/22/2018 Blood Pressure 1: 142/78 Code : 8480-6 BMI: 26.7 Code : 64199-5 Heart Rate 1 : 64 bpm Height: 6'4" SpO2: 99% Weight: 219 lbs 03/18/2018 Blood Pressure 1: 136/84 Code : 8480-6 BMI: 26.5 Code : 20347-0 Heart Rate 1 : 79 bpm Height: 6'4" SpO2: 99% Weight: 218 lbs 11/27/2017 Blood Pressure 1: 132/64 Code : 8480-6 BMI: 27.8 Code : 75176-1 Heart Rate 1 : 41 bpm Height: 6'4" SpO2: 97% Weight: 228 lbs 11/19/2017 Blood Pressure 1: 140/88 Code : 8480-6 Blood Pressure 1: 148/76 Code: 8480-6 BMI: 27.3 Code: 94962-4 Heart Rate 1: 58 bpm Height: 6'4" SpO2: 98% Weight: 224 lbs 08/08/2017 Blood Pressure 1: 130/80 Code : 8480-6 BMI: 26.5 Code : 71100-8 Heart Rate 1 : 71 bpm Height: 6'4" SpO2: 98% Weight: 218 lbs 05/22/2017 Blood Pressure 1: 142/78 Code : 8480-6 BMI: 28.0 Code : 16465-2 Heart Rate 1 : 77 bpm Height: 6'4" SpO2: 94% Waist Measure (cm): 91 cm Weight: 230 lbs 05/21/2017 Blood Pressure 1: 144/72 Code : 8480-6 BMI: 28.1 Code : 09298-6 Heart Rate 1 : 74 bpm Height: 6'4" SpO2: 95% Weight: 230 lbs 8 oz 11/23/2016 Blood Pressure 1: 136/74 Code : 8480-6 BMI: 29.9 Code : 21691-9 Heart Rate 1 : 59 bpm Height: 6'4" SpO2: 94% Weight: 246 lbs 11/20/2016 Blood Pressure 1: 130/80 Code : 8480-6 BMI: 29.9 Code : 51478-6 Heart Rate 1 : 75 bpm Height: 6'4" SpO2: 98% Weight: 246 lbs 11/10/2016 Blood Pressure 1: 140/82 Code : 8480-6 BMI: 29.7 Code : 95209-6 Heart Rate 1 : 64 bpm Height: 6'4" SpO2: 94% Weight: 244 lbs 09/14/2016 Blood Pressure 1: 130/82 Code : 8480-6 BMI: 27.4 Code : 41484-3 Heart Rate 1 : 74 bpm Height: 6'4" SpO2: 96% Weight: 225 lbs 07/24/2016 Blood Pressure 1: 128/78 Code : 8480-6 BMI: 27.4 Code : 31264-0 Heart Rate 1 : 78 bpm Height: 6'4" SpO2: 94% Weight: 225 lbs 01/24/2016 Blood Pressure 1: 124/88 Code : 8480-6 BMI: 29.5 Code : 52924-9 Heart Rate 1 : 68 bpm Height: 6'4" SpO2: 98% Weight: 242 lbs 07/26/2015 Blood Pressure 1: 150/82 Code : 8480-6 Blood Pressure 1: 138/82 Code: 8480-6 BMI: 29.9 Code: 44427-0 Heart Rate 1: 68 bpm Height: 6'4" SpO2: 94% Weight: 246 lbs 03/24/2015 Blood Pressure 1: 114/84 Code : 8480-6 BMI: 29.8 Code : 69834-5 Heart Rate 1 : 67 bpm Height: 6'4" SpO2: 95% Weight: 245 lbs Functional Status No Functional Status data History of Present Illness Symptom Name Status Result Effective Date Notes _ infection 2017 None Onset of Symptom days ago 08/26/2018 None Annual Medicare Wellness Exam Smoking and Tobacco Use non smoker 08/05/2018 None Annual Medicare Wellness Exam Motor Vehicle Safety always fastens seat belt: y 08/05/2018 None Annual Medicare Wellness Exam Motor Vehicle Safety drives after drinking: n 08/05/2018 None Annual Medicare Wellness Exam Motor Vehicle Safety rides with someone who has been drinking: n 2017 None Annual Medicare Wellness Exam Depression (last 6 months) some of the time 08/05/2018 None Annual Medicare Wellness Exam Depression or Hopelessness almost never 08/05/2018 None Annual Medicare Wellness Exam Describe Your Health fair 08/05/2018 None Annual Medicare Wellness Exam Exercise Habits does not exercise 08/05/2018 None Annual Medicare Wellness Exam Handling Stress usually masoud effectively 08/05/2018 None Annual Medicare Wellness Exam Hemaglobin A-1C (self reported ) don't know 08/05/2018 None Annual Medicare Wellness Exam Interaction with Friends yes 08/05/2018 None Annual Medicare Wellness Exam Life Satisfaction satisfied 08/05/2018 None Annual Medicare Wellness Exam Social & Emotional Support always 08/05/2018 None Annual Medicare Wellness Exam Stress some of the time 08/05/2018 None Annual Medicare Wellness Exam Alcohol Use does not drink any alcohol 08/05/2018 None Annual Medicare Wellness Exam Aspirin Use no 08/05/2018 None Annual Medicare Wellness Exam Blood Glucose (self reported) don't know 08/05/2018 None Annual Medicare Wellness Exam Blood Pressure (self reported ) low / normal (120/80) 08/05/2018 None Annual Medicare Wellness Exam Cholesterol (self reported) don't know 08/05/2018 None Annual Medicare Wellness Exam Hours of Sleep 8 08/05/2018 None Annual Medicare Wellness Exam Interests & Pleasure most of the time 08/05/2018 None Annual Medicare Wellness Exam Nutrition servings of fried food / high fat foods per day: 1 2017 None Annual Medicare Wellness Exam Nutrition servings of high fiber / whole grain per day: 2 08/05/2018 None Annual Medicare Wellness Exam Nutrition servings of vegetables / fruit per day: 4 08/05/2018 None Annual Medicare Wellness Exam Sun Exposure protects skin when outdoors: y 08/05/2018 None joint complaint Location on the left wrist 07/25/2018 None joint complaint Location on the right knee 07/25/2018 None joint complaint Quality acute 07/25/2018 None joint complaint Onset and Resolution sudden in onset 07/25/2018 None joint complaint Onset of Symptom 1 days ago 07/25/2018 None joint complaint Limitation on Activities moderately limits activities 07/25/2018 None joint complaint Pertinent Findings Denies fever 07/25/2018 None joint complaint Pertinent Findings Denies joint redness 07/25/2018 None vomiting Quality acute 07/25/2018 None vomiting Onset and Resolution sudden in onset 07/25/2018 None vomiting Onset of Symptom 1 days ago 07/25/2018 None vomiting Onset and Resolution resolved 07/25/2018 None vomiting Pertinent Findings Denies fever 07/25/2018 None back pain Location in the left lower back area 07/22/2018 None back pain Quality chronic 07/22/2018 None back pain Quality worsening 07/22/2018 None back pain Onset and Resolution ongoing 07/22/2018 None back pain Frequency of Episodes daily 07/22/2018 None back pain Frequency of Episodes increasing 07/22/2018 None back pain Triggers activity 07/22/2018 walking back pain Alleviating Factors medication 07/22/2018 None hypertension Quality chronic 07/22/2018 None hypertension Quality primary hypertension 07/22/2018 None hypertension Onset and Resolution ongoing 07/22/2018 None hypertension Onset of Symptom during adulthood 07/22/2018 None hypertension Blood Pressure Values not checking blood pressure at home 07/22/2018 None hypertension Alleviating Factors medication 07/22/2018 None hypertension Pertinent Findings Denies dizziness 07/22/2018 None hypertension Pertinent Findings dyspnea 07/22/2018 -has asthma- controls it with medication hypertension Pertinent Findings Denies edema 07/22/2018 None back pain Quality constant 07/22/2018 -some relief with sitting/laying back pain Alleviating Factors position change 07/22/2018 (sitting/laying) back pain Onset and Resolution ongoing 03/18/2018 None back pain Frequency of Episodes daily 03/18/2018 None back pain Triggers activity 03/18/2018 walking back pain Alleviating Factors medication 03/18/2018 None hypertension Quality primary hypertension 03/18/2018 None hypertension Onset and Resolution ongoing 03/18/2018 None hypertension Onset of Symptom during adulthood 03/18/2018 None hypertension Blood Pressure Values not checking blood pressure at home 03/18/2018 None hypertension Alleviating Factors medication 03/18/2018 None hypertension Pertinent Findings Denies dizziness 03/18/2018 None hypertension Pertinent Findings Denies dyspnea 03/18/2018 None hypertension Pertinent Findings Denies edema 03/18/2018 None hypertension Quality chronic 03/18/2018 None back pain Quality chronic 03/18/2018 None back pain Location in the left lower back area 03/18/2018 None back pain Quality worsening 03/18/2018 None back pain Frequency of Episodes increasing 03/18/2018 None knee pain Location on the right 11/27/2017 None knee pain Quality tenderness 11/27/2017 None knee pain Quality constant 11/27/2017 None knee pain Onset and Resolution sudden in onset 11/27/2017 None knee pain Onset of Symptom 2 weeks ago 11/27/2017 None knee pain Frequency of Episodes daily 11/27/2017 None back pain Location lumbar-sacral spine 11/19/2017 None back pain Quality intermittent 11/19/2017 None back pain Onset and Resolution ongoing 11/19/2017 None back pain Limitation on Activities does not limit activities 11/19/2017 None back pain Frequency of Episodes daily 11/19/2017 None back pain Triggers activity 11/19/2017 walking hypertension Onset and Resolution ongoing 11/19/2017 None hypertension Onset of Symptom during adulthood 11/19/2017 None hypertension Alleviating Factors medication 11/19/2017 None hypertension Pertinent Findings Denies dizziness 11/19/2017 None hypertension Pertinent Findings Denies dyspnea 11/19/2017 None hypertension Pertinent Findings Denies edema 11/19/2017 None hypertension Quality primary hypertension 11/19/2017 None hypertension Blood Pressure Values not checking blood pressure at home 11/19/2017 None back pain Frequency of Episodes unchanged 11/19/2017 None back pain Alleviating Factors medication 11/19/2017 None elbow pain Location on the right 08/08/2017 None elbow pain Quality acute 08/08/2017 None elbow pain Onset and Resolution sudden in onset 08/08/2017 None elbow pain Onset of Symptom 1 weeks ago 08/08/2017 None elbow pain Frequency of Episodes daily 08/08/2017 None elbow pain Mechanism of injury unknown 08/08/2017 None elbow pain Pertinent Findings swelling 08/08/2017 None elbow pain Pertinent Findings Denies drainage 08/08/2017 None elbow pain Pertinent Findings redness 08/08/2017 None Annual Medicare Wellness Exam Alcohol Use does not drink any alcohol 05/22/2017 None Annual Medicare Wellness Exam Aspirin Use no 05/22/2017 None Annual Medicare Wellness Exam Blood Glucose (self reported) don't know 05/22/2017 None Annual Medicare Wellness Exam Blood Pressure (self reported ) low / normal (120/80) 05/22/2017 None Annual Medicare Wellness Exam Cholesterol (self reported) don't know 05/22/2017 None Annual Medicare Wellness Exam Depression (last 6 months) almost never 05/22/2017 None Annual Medicare Wellness Exam Depression or Hopelessness almost never 05/22/2017 None Annual Medicare Wellness Exam Describe Your Health fair 05/22/2017 None Annual Medicare Wellness Exam Exercise Habits does not exercise 05/22/2017 None Annual Medicare Wellness Exam Handling Stress usually masoud effectively 05/22/2017 None Annual Medicare Wellness Exam Hemaglobin A-1C (self reported ) don't know 05/22/2017 None Annual Medicare Wellness Exam Hours of Sleep 7 05/22/2017 None Annual Medicare Wellness Exam Interaction with Friends yes 05/22/2017 None Annual Medicare Wellness Exam Interests & Pleasure almost all of the time 05/22/2017 None Annual Medicare Wellness Exam Life Satisfaction very satisfied 05/22/2017 None Annual Medicare Wellness Exam Motor Vehicle Safety always fastens seat belt: y 05/22/2017 None Annual Medicare Wellness Exam Motor Vehicle Safety drives after drinking: n 05/22/2017 None Annual Medicare Wellness Exam Motor Vehicle Safety rides with someone who has been drinking: n 2016 None Annual Medicare Wellness Exam Nutrition servings of fried food / high fat foods per day: 1 2016 None Annual Medicare Wellness Exam Nutrition servings of high fiber / whole grain per day: 1 05/22/2017 None Annual Medicare Wellness Exam Nutrition servings of vegetables / fruit per day: 2 05/22/2017 None Annual Medicare Wellness Exam Smoking and Tobacco Use non smoker 05/22/2017 None Annual Medicare Wellness Exam Social & Emotional Support always 05/22/2017 None Annual Medicare Wellness Exam Stress almost never 05/22/2017 None Annual Medicare Wellness Exam Sun Exposure protects skin when outdoors: y 05/22/2017 None back pain Location lumbar-sacral spine 05/21/2017 None back pain Quality intermittent 05/21/2017 None back pain Onset and Resolution ongoing 05/21/2017 None back pain Limitation on Activities does not limit activities 05/21/2017 None back pain Frequency of Episodes daily 05/21/2017 None back pain Triggers activity 05/21/2017 walking hypertension Onset and Resolution ongoing 05/21/2017 None hypertension Onset of Symptom during adulthood 05/21/2017 None hypertension Alleviating Factors medication 05/21/2017 None hypertension Pertinent Findings Denies dizziness 05/21/2017 None hypertension Pertinent Findings Denies dyspnea 05/21/2017 None hypertension Pertinent Findings Denies edema 05/21/2017 None hypertension Blood Pressure Values patient checking blood pressure at home - did not bring in readings 05/21/2017 None flank pain Location on the left 11/23/2016 None flank pain Quality aching 11/23/2016 None flank pain Quality constant 11/23/2016 None flank pain Quality dull 11/23/2016 None flank pain Onset and Resolution sudden in onset 11/23/2016 None flank pain Onset of Symptom 1 days ago 11/23/2016 None back pain Location lumbar-sacral spine 11/20/2016 None back pain Quality intermittent 11/20/2016 None back pain Onset and Resolution ongoing 11/20/2016 None back pain Limitation on Activities does not limit activities 11/20/2016 None back pain Frequency of Episodes daily 11/20/2016 None back pain Triggers activity 11/20/2016 walking hypertension Onset and Resolution ongoing 11/20/2016 None hypertension Onset of Symptom during adulthood 11/20/2016 None hypertension Blood Pressure Values not checking blood pressure at home 11/20/2016 None hypertension Alleviating Factors medication 11/20/2016 None hypertension Pertinent Findings Denies dizziness 11/20/2016 None hypertension Pertinent Findings Denies dyspnea 11/20/2016 None hypertension Pertinent Findings Denies edema 11/20/2016 None nausea Onset of Symptom 2 days ago 11/10/2016 None nausea Frequency of Episodes daily 11/10/2016 None nausea Onset and Resolution sudden in onset 11/10/2016 None skin lesion Quality non-tender 09/14/2016 None skin lesion Quality raised 09/14/2016 None skin lesion Onset of Symptom 3-4 months ago 09/14/2016 None skin lesion Frequency of Episodes daily 09/14/2016 None skin lesion Pertinent Findings Denies ecchymotic 09/14/2016 None skin lesion Pertinent Findings Denies fever 09/14/2016 None skin lesion Pertinent Findings Denies facial pain 09/14/2016 None back pain Location lumbar-sacral spine 07/24/2016 None back pain Quality intermittent 07/24/2016 None back pain Onset and Resolution ongoing 07/24/2016 None back pain Onset of Symptom 2-3 months ago 07/24/2016 None back pain Frequency of Episodes daily 07/24/2016 None back pain Mechanism of injury unknown 07/24/2016 None back pain Pertinent Findings extremity weakness 07/24/2016 None back pain Pertinent Findings Denies weakness 07/24/2016 None back pain Pertinent Findings Denies motor vehicle accident 07/24/2016 None back pain Limitation on Activities does not limit activities 07/24/2016 None back pain Triggers activity 07/24/2016 walking cough Location in the throat 01/24/2016 None cough Quality productive 01/24/2016 clear cough Onset and Resolution ongoing 01/24/2016 None cough Onset of Symptom 1 months ago 01/24/2016 None cough Pertinent Findings Denies chest discomfort 01/24/2016 None cough Pertinent Findings Denies dyspnea 01/24/2016 None cough Pertinent Findings Denies fever 01/24/2016 None cough Pertinent Findings Denies weakness 01/24/2016 None cough Limitation on Activities does not limit activities 01/24/2016 None cough Alleviating Factors inhaled medications 01/24/2016 None back pain Location in the left lower back area 01/24/2016 None back pain Quality intermittent 01/24/2016 when standing or do activity back pain Onset and Resolution ongoing 01/24/2016 None back pain Onset of Symptom 3 weeks ago 01/24/2016 None back pain Limitation on Activities does not limit activities 01/24/2016 he is able to stand up, twist, and touch his toes. back pain Frequency of Episodes hourly 01/24/2016 None back pain Length of Episodes _ days 01/24/2016 None back pain Mechanism of injury unknown 01/24/2016 None back pain Alleviating Factors rest 01/24/2016 it completely resolves with sitting or laying down. back pain Pertinent Findings Denies cervical fracture 01/24/2016 None back pain Pertinent Findings Denies extremity numbness 01/24/2016 None back pain Pertinent Findings Denies extremity weakness 01/24/2016 None back pain Pertinent Findings Denies sleep disturbance 01/24/2016 None hypertension Quality chronic 07/26/2015 None hypertension Onset and Resolution ongoing 07/26/2015 None hypertension Pertinent Findings Denies dizziness 07/26/2015 None hypertension Pertinent Findings Denies dyspnea 07/26/2015 None hypertension Pertinent Findings Denies edema 07/26/2015 None wheezing Quality expiratory only 07/26/2015 None wheezing Quality improving 07/26/2015 None wheezing Triggers exercise 07/26/2015 None wheezing Triggers known allergens 07/26/2015 None wheezing Triggers season change 07/26/2015 None wheezing Pertinent Findings cough 07/26/2015 None wheezing Pertinent Findings Denies sputum production 07/26/2015 None hypertension Onset of Symptom during adulthood 07/26/2015 None hypertension Severity not consistently severe symptoms, the symptoms fluctuate from no symptoms to anxiety and headaches 07/26/2015 None hypertension Blood Pressure Values patient checking blood pressure at home - did not bring in readings 07/26/2015 None hypertension Significant Family History heart disease 07/26/2015 None hypertension Triggers no known associated factors 07/26/2015 None hypertension Alleviating Factors medication 07/26/2015 None wheezing Onset and Resolution ongoing 07/26/2015 None wheezing Severity mild 07/26/2015 None wheezing Frequency of Episodes decreasing 07/26/2015 None hypertension Onset and Resolution ongoing 03/24/2015 None hypertension Pertinent Findings Denies dizziness 03/24/2015 None hypertension Pertinent Findings Denies dyspnea 03/24/2015 None hypertension Pertinent Findings Denies edema 03/24/2015 None pain Location-Major on the hands 03/24/2015 None pain Location-Major on the feet 03/24/2015 None pain Location-Major on the legs 03/24/2015 diagnosed 25 years ago with connective tissue disorder- uses Prednisone 10mg daily and Hydrocodone pain Pertinent Findings pain 03/24/2015 None hypertension Quality chronic 03/24/2015 None Advance Directives No Advance Directive data Encounters Encounter Performer Location Codes Date EST. PATIENT, LEVEL III Diagnosis: Diverticulitis of large intestine with perforation and abscess without bleeding[ICD10: K57.20] [facility] CPT-4: 74017 08/26/2018 [id number] EST. PATIENT, LEVEL IV Diagnosis: Pain in left wrist[ICD10: M25.532] Diagnosis: Other malaise[ICD10: R53.81] Diagnosis: Other fatigue[ICD10: R53.83] [facility] CPT-4 : 75589 07/25/2018 ([id number]) [id number] EST. PATIENT, LEVEL IV Diagnosis: Essential (primary) hypertension[ICD10: I10] Diagnosis: Chronic pain syndrome[ICD10: G89.4] Diagnosis: Low back pain[ICD10: M54.5] Beverly Hussein MD, [facility] CPT- 4: 12117 07/22/2018 ([id number]) [id number] EST. PATIENT, LEVEL III Diagnosis: Sacroiliitis, not elsewhere classified[ICD10: M46.1] Diagnosis: Spinal instabilities, sacral and sacrococcygeal region[ICD10: M53.2X8 ] Diagnosis: Essential (primary) hypertension[ICD10: I10] Diagnosis: Chronic pain syndrome[ICD10: G89.4] Beverly Hussein MD, [facility] CPT-4: 78375 03/18/2018 [id number] EST. PATIENT, LEVEL III Diagnosis: Pain in right knee[ICD10: M25.561] Lizz Hussein MD, [facility] CPT-4: 46206 11/27/2017 ([id number]) [id number] EST. PATIENT, LEVEL IV Diagnosis: Essential (primary) hypertension[ICD10: I10] Diagnosis: Chronic pain syndrome[ICD10: G89.4] Diagnosis: Vitamin D deficiency, unspecified[ICD10: E55.9] Beverly Hussein MD, [facility] CPT-4: 45833 11/19/2017 ([id number]) 67008 EST. PATIENT, LEVEL III Diagnosis: Olecranon bursitis, right elbow[ICD10: M70.21] Beverly Hussein MD, [facility] CPT-4: 57143 08/08/2017 ([id number]) 45968 EST. PATIENT, LEVEL IV Diagnosis: Essential (primary) hypertension[ICD10: I10] Diagnosis: Low back pain[ICD10: M54.5] Beverly Hussein MD, [facility] CPT- 4: 29420 05/21/2017 10206 EST. PATIENT, LEVEL III Diagnosis: Calculus of kidney[ICD10: N20.0] Lizz Hussein MD, [facility] CPT- 4: 81652 11/23/2016 ([id number]) 59947 EST. PATIENT, LEVEL III Diagnosis: Essential (primary) hypertension[ICD10: I10] Beverly Hussein MD, [facility] CPT-4: 88701 11/20/2016 [id number] EST. PATIENT, LEVEL III Diagnosis: Nausea[ICD10: R11.0] Lizz Hussein MD, [facility] CPT-4: 70770 11/10/2016 ([id number]) 49818 EST. PATIENT, LEVEL III Diagnosis: Allergic rhinitis due to pollen[ICD10: J30.1] Diagnosis: Other benign neoplasm of skin of unspecified part of face[ICD10: D23.30] Kelsy Hussein MD, [facility] CPT-4: 46567 ([id number]) 02407 EST. PATIENT, LEVEL IV Diagnosis: Essential (primary) hypertension[ICD10: I10] Diagnosis: Vitamin D deficiency, unspecified[ICD10: E55.9] Diagnosis: Low back pain[ICD10: M54.5] Diagnosis: Mild intermittent asthma with (acute) exacerbation[ICD10: J45.21] Kelsy Hussein MD, [facility] CPT-4: 26917 07/24/2016 ([id number]) 50956 EST. PATIENT, LEVEL IV Diagnosis: Essential (primary) hypertension[ICD10: I10] Diagnosis: Allergic rhinitis due to pollen[ICD10: J30.1] Diagnosis: Low back pain[ICD10: M54.5] Kelsy Hussein MD, [facility] CPT-4: 13100 01/24/2016 ([id number]) 37224 EST. PATIENT, LEVEL IV Diagnosis: Essential (primary) hypertension[ICD10: I10] Diagnosis: Vitamin D deficiency, unspecified[ICD10: E55.9] Diagnosis: Chronic pain syndrome[ICD10: G89.4] Diagnosis: Allergic rhinitis, unspecified[ICD10: J30.9] Kelsy Hussein MD, [facility] CPT-4: 82746 07/26/2015 ([id number]) OFFICE VISIT, NEW - LEVEL 4 Diagnosis: ESSENTIAL HYPERTENSION[ICD9: 401.9] Diagnosis: CHRONIC PAIN SYNDROME[ICD9: 338.4] Diagnosis: Skin change[ICD9: 782.9] Beverly Hussein MD, [facility] CPT-4: 71258 03/24/2015 Plan of Care Planned Activity Notes Codes Status Date Appointment: [facility] [facility] [place] (15 min) Moderate 08/30/2018 Appointment: Kelsy Hsu WPtel: [address] [phone] [place] (15 min) Moderate 08/27/2018 Visit Plan: Diverticulitis with abscess - Dr. Hussein in to evaluate pt - pt's drain was in the closed position - upon opening the drain serosanguineous drainage and air began to drain and pt experienced some relief of symptoms - will send for CT to check for drain placement and pt is to follow up with Dr. Banuelos at 4PM today. 08/26/2018 Appointment: [facility] Wil[facility] [facility] [place] (30 min) Complex 08/26/2018 Patient Education: Patient Medication Summary Completed 08/26/2018 Appointment: [facility] [address] [phone] [place] (15 min) Moderate 08/19/2018 Appointment: Lizz Wilkstel: [facility] [place] (15 min) Moderate 08/07/2018 Visit Plan: Medicare Exam - today we discussed the patients past history, immunizations, preventative exams/evaluations - colonoscopy, fecal occult blood testing, routine labs for renal function, glucose, cholesterol, osteoporosis evaluations, cardiovascular testing and cancer screenings. We have also discussed mental health and the signs/symptoms of depression. The patient was advised of home safety evaluations and the need to make sure that as the aging process continues, we need to be aware of different ways to make the home a safer place to reside. The patient has also been counseled that exercise is necessary - and of utmost importance as we age to help decrease fall risk and to maintain independece in the home. Today we discussed the need for the patient to create paperwork for Advanced directives as well as for the patient to provide this office with a copy of her DOPA paperwork for health care surrogate. 08/05/2018 Appointment: [facility] [address] [facility] [facility] - Annual Wellness Visit 08/05/2018 Patient Education: Patient Medication Summary Completed 08/05/2018 Visit Plan: Nausea - suspect from new morphine - will send RX - pt is to take the new medication with food and notify clinic if symptoms do not improve Joint pain - will check labs and treat as indicated - will send steroid taper - pt is to notify clinic with any changes or concerns. 07/25/2018 Visit Plan: Nausea - suspect from new morphine - will send RX - pt is to take the new medication with food and notify clinic if symptoms do not improve Joint pain - will check labs and treat as indicated - will send steroid taper - pt is to notify clinic with any changes or concerns. 07/25/2018 Appointment: [facility]izz Wilks [facility]el[facility] [phone] [facility] (15 min) Moderate 07/25/2018 Patient Education: Patient Medication Summary Completed 07/25/2018 Visit Plan: Hypertension - well controlled - continue with current medications, continue with no added salt diet. Pt has been encouraged to exercise daily. The pt has been advised to call the office if there are any acute concerns about change in blood pressure readings at home. Low back pain, Chronic Pain Syndrome - pt has chronic pain -he has had such bad pain that his symptoms have not been well controlled - I have recommended pt to start on ms contin 15mg bid, continue with PRN pain medications. He has not sought out other medications, only uses PRN pain medications as directed, and understands the consequences of over-medication. Pt signed a pain contract today - 07/22/2018 Appointment: [facility] (15 min) Moderate 07/22/2018 Patient Education: Patient Medication Summary Completed 07/22/2018 Patient Education: Back Pain Completed 07/22/2018 Visit Plan: Hypertension - well controlled - continue with current medications, continue with no added salt diet. Pt has been encouraged to exercise daily. The pt has been advised to call the office if there are any acute concerns about change in blood pressure readings at home. Chronic pain - refilled hydrocodone today SI joint pain - injection today in left SI joint - if not improving after a week or so - will refer to Dr. Jackson for injections. Pt to increase his prednisone from 10mg daily to 20mg daily x 5 days then resume his 10mg dose thereafter. 03/18/2018 Appointment: [facility] [place] (15 min) Moderate 03/18/2018 Patient Education: Patient Medication Summary Completed 03/18/2018 Appointment: Injection 02/25/2018 Appointment: Injection 02/21/2018 Patient Education: Patient Medication Summary Completed 02/21/2018 Visit Plan: Right knee pain - the patient was instructed in appropriate posture. The pt is to use prn antiinflammatories to manage acute pain. The patient is to call the office if the pain is worsening or does not improve. 11/27/2017 Appointment: Lizz Wilks WPtel: [phone] [facility] [place] (30 min) Complex 11/27/2017 Patient Education: Patient Medication Summary Completed 11/27/2017 Care Plan: X-RAY EXAM OF KNEE 3 LOINC : 07016-0 Pending 11/27/2017 Visit Plan: Hypertension -usually pt has blood pressure that is well controlled - he forgot his blood pressure medication this morning. - continue with current medications, continue with no added salt diet. Pt has been encouraged to exercise daily. The pt has been advised to call the office if there are any acute concerns about change in blood pressure readings at home. Chronic Pain Syndrome - pt has chronic pain - has been maintained on current medications, has not sought out other medications, only uses PRN pain medications as directed, and understands the consequences of over-medication. Vitamin D deficiency - continue current medications. 11/19/2017 Appointment: [phone] [place] (15 min) Moderate 11/19/2017 Patient Education: Patient Medication Summary Completed 11/19/2017 Visit Plan: Olecranon swelling - recommended patient to have uric acid level - monitor lab - if negative continue current treatment. 08/08/2017 Patient Education: Patient Medication Summary Completed 08/08/2017 Visit Plan: Medicare Exam - today we discussed the patients past history, immunizations, preventative exams/evaluations - colonoscopy, fecal occult blood testing, routine labs for renal function, glucose, cholesterol, osteoporosis evaluations, cardiovascular testing and cancer screenings. We have also discussed mental health and the signs/symptoms of depression. The patient was advised of home safety evaluations and the need to make sure that as the aging process continues, we need to be aware of different ways to make the home a safer place to reside. The patient has also been counseled that exercise is necessary - and of utmost importance as we age to help decrease fall risk and to maintain independence in the home. Today we discussed the need for the patient to create paperwork for Advanced directives as well as for the patient to provide this office with a copy of her DOPA paperwork for health care surrogate. 05/22/2017 Visit Plan: Medicare Exam - today we discussed the patients past history, immunizations, preventative exams/evaluations - colonoscopy, fecal occult blood testing, routine labs for renal function, glucose, cholesterol, osteoporosis evaluations, cardiovascular testing and cancer screenings. We have also discussed mental health and the signs/symptoms of depression. The patient was advised of home safety evaluations and the need to make sure that as the aging process continues, we need to be aware of different ways to make the home a safer place to reside. The patient has also been counseled that exercise is necessary - and of utmost importance as we age to help decrease fall risk and to maintain independence in the home. Today we discussed the need for the patient to create paperwork for Advanced directives as well as for the patient to provide this office with a copy of her DOPA paperwork for health care surrogate. 05/22/2017 Visit Plan: Medicare Exam - today we discussed the patients past history, immunizations, preventative exams/evaluations - colonoscopy, fecal occult blood testing, routine labs for renal function, glucose, cholesterol, osteoporosis evaluations, cardiovascular testing and cancer screenings. We have also discussed mental health and the signs/symptoms of depression. The patient was advised of home safety evaluations and the need to make sure that as the aging process continues, we need to be aware of different ways to make the home a safer place to reside. The patient has also been counseled that exercise is necessary - and of utmost importance as we age to help decrease fall risk and to maintain independence in the home. Today we discussed the need for the patient to create paperwork for Advanced directives as well as for the patient to provide this office with a copy of her DOPA paperwork for health care surrogate. 05/22/2017 Visit Plan: Medicare Exam - today we discussed the patients past history, immunizations, preventative exams/evaluations - colonoscopy, fecal occult blood testing, routine labs for renal function, glucose, cholesterol, osteoporosis evaluations, cardiovascular testing and cancer screenings. We have also discussed mental health and the signs/symptoms of depression. The patient was advised of home safety evaluations and the need to make sure that as the aging process continues, we need to be aware of different ways to make the home a safer place to reside. The patient has also been counseled that exercise is necessary - and of utmost importance as we age to help decrease fall risk and to maintain independence in the home. Today we discussed the need for the patient to create paperwork for Advanced directives as well as for the patient to provide this office with a copy of her DOPA paperwork for health care surrogate. 05/22/2017 Appointment: Kelsy Hsu WPtel: [facility]8 [phone] [facility] - Annual Wellness Visit 05/22/2017 Patient Education: Patient Medication Summary Completed 05/22/2017 Visit Plan: Hypertension - well controlled - continue with current medications, continue with no added salt diet. Pt has been encouraged to exercise daily. The pt has been advised to call the office if there are any acute concerns about change in blood pressure readings at home. Low Back pain - stable - continue with physical therapy and stretching. I have recommended that Jorge needs to look into Yoga. 05/21/2017 Appointment: Beverly Hussein WPtel: [facility]8 [facility] (15 min) Moderate 05/21/2017 Patient Education: Patient Medication Summary Completed 05/21/2017 Patient Education: Hypertension Completed 05/21/2017 Care Plan: X-RAY EXAM OF ABDOMEN LOINC : 22849-0 Pending 12/17/2016 Visit Plan: Left flank pain - KUB shows renal caliculi - will refer to Dr. Robledo. Pt is to notify clinic with any changes or concerns. 11/23/2016 Appointment: Lizz Wilks WPtel: [facility]9 [facility] (15 min) Moderate 11/23/2016 Patient Education: Patient Medication Summary Completed 11/23/2016 Visit Plan: Hypertension - well controlled - continue with current medications, continue with no added salt diet. Pt has been encouraged to exercise daily. The pt has been advised to call the office if there are any acute concerns about change in blood pressure readings at home. retained suture - removed from right cheek 11/20/2016 Appointment: Beverly Hussein WPtel: [facility]4 [facility] (15 min) Moderate 11/20/2016 Patient Education: Patient Medication Summary Completed 11/20/2016 Visit Plan: Gastroenteritis - discussed need to stay away from milk products while acutely ill with diarrhea and nausea and emesis as it may worsen the symptoms. Liquids initially until the nausea improves, then recommend to advance to bland diet for 1 day, then advance as tolerated. Call if symptoms not improved. Discussed treatment of reflux with pt - pt does not want any reflux medication at this time, he states that if his nausea continues he will notify clinic to start on a reflux medication. The patient has been counseled against excessive intake of caffeine, spicy foods, peppermint, and cinnamon - all of which can exacerbate esophageal reflux. 11/10/2016 Appointment: Lizz Wilks WPtel: [facility]2 [facility] (30 min) Complex 11/10/2016 Patient Education: Patient Medication Summary Completed 11/10/2016 Referral: Poncho Mock [address] Referral Completed 11/03/2016 Visit Plan: Cyst-right cheek-refer to Dr Mock for removal Sidguzlgm-zhkpeq-wozgeazrz symptoms-kenalog injection today in the office- samples of advair provided and instructed on use. 09/14/2016 Appointment: Kelsy Hsu WPtel: [facility]1 [phone] (30 min) Complex 09/14/2016 Patient Education: Patient Medication Summary Completed 09/14/2016 Care Plan: Referral Order SNOMED-CT : [id number] Pending 09/14/2016 Visit Plan: Hypertension - well controlled - continue with current medications, continue with no added salt diet. Pt has been encouraged to exercise daily. The pt has been advised to call the office if there are any acute concerns about change in blood pressure readings at home. Vitamin D deficiency-check labs Chronic asthma-symptoms not well controlled-kenalog injection today in the office-increase advair to twice daily Low back-hip pain- refer to [facility] for physical therapy-refill hydrocodone for prn use 07/24/2016 Appointment: Kelsy Hsu WPtel: [address] [place], [place] [id number] (15 min) Moderate 07/24/2016 Patient Education: Patient Medication Summary Completed 07/24/2016 Visit Plan: Hypertension - well controlled - continue with current medications, continue with no added salt diet. Pt has been encouraged to exercise daily. The pt has been advised to call the office if there are any acute concerns about change in blood pressure readings at home. Allergies - chronic - recommended pt to use allergy medication as prescribed. Pt has been counseled as to the appropriate use of the medication. Pt to call if allergy symptoms are not controlled with the medication. If using nasal spray, instructions as follows: Nasal spray- use twice daily, one spray per nostril twice daily, after 30 minutes, rinse out nose with saline spray.. Use opposite hand per nostril to spray in the nasal steroid allergy spray. Kenalog injection today in the office Fqwwi-Zkyvwd-saxsga to symbicort Low back pain-recommend stretches for lower back 01/24/2016 Appointment: (15 min) Moderate 01/24/2016 Patient Education: Patient Medication Summary Completed 01/24/2016 Visit Plan: Hypertension - well controlled - continue with current medications, continue with no added salt diet. Pt has been encouraged to exercise daily. The pt has been advised to call the office if there are any acute concerns about change in blood pressure readings at home. Chronic Pain Syndrome - pt has chronic pain - has been maintained on current medications, has not sought out other medications, only uses PRN pain medications as directed , and understands the consequences of over-medication. Allergies - chronic - recommended pt to use allergy medication as prescribed. Pt has been counseled as to the appropriate use of the medication. Pt to call if allergy symptoms are not controlled with the medication. If using nasal spray, instructions as follows: Nasal spray- use twice daily, one spray per nostril twice daily, after 30 minutes, rinse out nose with saline spray.. Use opposite hand per nostril to spray in the nasal steroid allergy spray. Kenalog injection today in the office. Vitamin D deficiency-check vitamin D level today 07/26/2015 Appointment: (15 min) Moderate 07/26/2015 Patient Education: Patient Medication Summary Completed 07/26/2015 Patient Education: Hypertension Completed 07/26/2015 Visit Plan: Hypertension - well controlled - continue with current medications, continue with no added salt diet. Pt has been encouraged to exercise daily. The pt has been advised to call the office if there are any acute concerns about change in blood pressure readings at home. Skin cancer of face/head - rx for efudex. Chronic Pain Syndrome - pt has chronic pain - has been maintained on current medications, has not sought out other medications, only uses PRN pain medications as directed, and understands the consequences of over-medication. 03/24/2015 Visit Plan: Hypertension - well controlled - continue with current medications, continue with no added salt diet. Pt has been encouraged to exercise daily. The pt has been advised to call the office if there are any acute concerns about change in blood pressure readings at home. Skin cancer of face/head - rx for efudex. Chronic Pain Syndrome - pt has chronic pain - has been maintained on current medications, has not sought out other medications, only uses PRN pain medications as directed, and understands the consequences of over-medication. 03/24/2015 Patient Education: Patient Medication Summary Completed 03/24/2015 Patient Education: Hypertension Completed 03/24/2015 [facility] [facility] Requested Instructions Comment . Olecranon swelling - recommended patient to have uric acid level - monitor lab - if negative continue current treatment. Kenalog 40mg . Hypertension - well controlled - continue with current medications, continue with no added salt diet. Pt has been encouraged to exercise daily. The pt has been advised to call the office if there are any acute concerns about change in blood pressure readings at home. Chronic Pain Syndrome - pt has chronic pain - has been maintained on current medications, has not sought out other medications, only uses PRN pain medications as directed, and understands the consequences of over-medication. Allergies - chronic - recommended pt to use allergy medication as prescribed. Pt has been counseled as to the appropriate use of the medication. Pt to call if allergy symptoms are not controlled with the medication. If using nasal spray, instructions as follows: Nasal spray- use twice daily, one spray per nostril twice daily, after 30 minutes, rinse out nose with saline spray.. Use opposite hand per nostril to spray in the nasal steroid allergy spray. Kenalog injection today in the office. Vitamin D deficiency-check vitamin D level today . Diverticulitis with abscess - Dr. Hussein in to evaluate pt - pt's drain was in the closed position - upon opening the drain serosanguineous drainage and air began to drain and pt experienced some relief of symptoms - will send for CT to check for drain placement and pt is to follow up with Dr. Banuelos at 4PM today. REFER FOR PT-PINAMONTI -LOW BACK PAIN, SCIATICA INCREASE ADVAIR TO TWICE DAILY RESTART FLONASE KENALOG INJECTION TODAY IN THE OFFICE FLUSH EARS TODAY IN THE OFFICE USE EFUDEX ON LESION LEFT FACE-MONITOR CYST ON RIGHT CHEEK-CALL IF IT DOES NOT HEAL RETURN FASTING FOR LABS . Hypertension - well controlled - continue with current medications, continue with no added salt diet. Pt has been encouraged to exercise daily. The pt has been advised to call the office if there are any acute concerns about change in blood pressure readings at home. Vitamin D deficiency-check labs Chronic asthma-symptoms not well controlled-kenalog injection today in the office-increase advair to twice daily Low back-hip pain-refer to [facility] for physical therapy-refill hydrocodone for prn use . Hypertension - well controlled - continue with current medications, continue with no added salt diet. Pt has been encouraged to exercise daily. The pt has been advised to call the office if there are any acute concerns about change in blood pressure readings at home. Skin cancer of face/head - rx for efudex. Chronic Pain Syndrome - pt has chronic pain - has been maintained on current medications, has not sought out other medications, only uses PRN pain medications as directed, and understands the consequences of over-medication. . Hypertension - well controlled - continue with current medications, continue with no added salt diet. Pt has been encouraged to exercise daily. The pt has been advised to call the office if there are any acute concerns about change in blood pressure readings at home. Skin cancer of face/head - rx for efudex. Chronic Pain Syndrome - pt has chronic pain - has been maintained on current medications, has not sought out other medications, only uses PRN pain medications as directed, and understands the consequences of over-medication. . Gastroenteritis - discussed need to stay away from milk products while acutely ill with diarrhea and nausea and emesis as it may worsen the symptoms. Liquids initially until the nausea improves, then recommend to advance to bland diet for 1 day, then advance as tolerated. Call if symptoms not improved. Discussed treatment of reflux with pt - pt does not want any reflux medication at this time, he states that if his nausea continues he will notify clinic to start on a reflux medication. The patient has been counseled against excessive intake of caffeine, spicy foods, peppermint, and cinnamon - all of which can exacerbate esophageal reflux. . Hypertension -usually pt has blood pressure that is well controlled - he forgot his blood pressure medication this morning.- continue with current medications, continue with no added salt diet. Pt has been encouraged to exercise daily. The pt has been advised to call the office if there are any acute concerns about change in blood pressure readings at home. Chronic Pain Syndrome - pt has chronic pain - has been maintained on current medications, has not sought out other medications, only uses PRN pain medications as directed, and understands the consequences of over-medication. Vitamin D deficiency - continue current medications. get labs done one week before next appt . Hypertension - well controlled - continue with current medications, continue with no added salt diet. Pt has been encouraged to exercise daily. The pt has been advised to call the office if there are any acute concerns about change in blood pressure readings at home. retained suture - removed from right cheek SYMBICORT 2 PUFFS TWICE DAILY-STOP ADVAIR WHILE YOU ARE USING THIS. IF IT WORKS BETTER, CALL US AND WE CAN SEND IN A PRESCRIPTION. . Hypertension - well controlled - continue with current medications, continue with no added salt diet. Pt has been encouraged to exercise daily. The pt has been advised to call the office if there are any acute concerns about change in blood pressure readings at home. Allergies - chronic - recommended pt to use allergy medication as prescribed. Pt has been counseled as to the appropriate use of the medication. Pt to call if allergy symptoms are not controlled with the medication. If using nasal spray, instructions as follows: Nasal spray- use twice daily, one spray per nostril twice daily, after 30 minutes, rinse out nose with saline spray.. Use opposite hand per nostril to spray in the nasal steroid allergy spray. Kenalog injection today in the office Ofmlc-[id number] to symbicort Low back pain-recommend stretches for lower back . Hypertension - well controlled - continue with current medications, continue with no added salt diet. Pt has been encouraged to exercise daily. The pt has been advised to call the office if there are any acute concerns about change in blood pressure readings at home. Low Back pain - stable - continue with physical therapy and stretching. I have recommended that Jorge needs to look into Yoga. Will check labs and urine sample Will increase prednisone to 60mg x 2 days, then 40mg x 2 days, then 20mg x 2 days then back 10mg - start tomorrow - we will give you a steroid shot today. Take the morphine with food zofran as needed for nausea. let me know if your symptoms are not improving. . Nausea - suspect from new morphine - will send RX - pt is to take the new medication with food and notify clinic if symptoms do not improve Joint pain - will check labs and treat as indicated - will send steroid taper - pt is to notify clinic with any changes or concerns. Will check labs and urine sample Will increase prednisone to 60mg x 2 days, then 40mg x 2 days, then 20mg x 2 days then back 10mg - start tomorrow - we will give you a steroid shot today. Take the morphine with food zofran as needed for nausea. let me know if your symptoms are not improving. . Nausea - suspect from new morphine - will send RX - pt is to take the new medication with food and notify clinic if symptoms do not improve Joint pain - will check labs and treat as indicated - will send steroid taper - pt is to notify clinic with any changes or concerns. . Left flank pain - KUB shows renal caliculi - will refer to Dr. Robledo. Pt is to notify clinic with any changes or concerns. . Hypertension - well controlled - continue with current medications, continue with no added salt diet. Pt has been encouraged to exercise daily. The pt has been advised to call the office if there are any acute concerns about change in blood pressure readings at home. Low back pain, Chronic Pain Syndrome - pt has chronic pain -he has had such bad pain that his symptoms have not been well controlled - I have recommended pt to start on ms contin 15mg bid, continue with PRN pain medications. He has not sought out other medications, only uses PRN pain medications as directed, and understands the consequences of over-medication. Pt signed a pain contract today - . Medicare Exam - today we discussed the patients past history, immunizations, preventative exams/evaluations - colonoscopy, fecal occult blood testing, routine labs for renal function, glucose, cholesterol, osteoporosis evaluations, cardiovascular testing and cancer screenings. We have also discussed mental health and the signs/symptoms of depression. The patient was advised of home safety evaluations and the need to make sure that as the aging process continues, we need to be aware of different ways to make the home a safer place to reside. The patient has also been counseled that exercise is necessary - and of utmost importance as we age to help decrease fall risk and to maintain independece in the home. Today we discussed the need for the patient to create paperwork for Advanced directives as well as for the patient to provide this office with a copy of her DOPA paperwork for health care surrogate. . Right knee pain - the patient was instructed in appropriate posture. The pt is to use prn antiinflammatories to manage acute pain. The patient is to call the office if the pain is worsening or does not improve. . Medicare Exam - today we discussed the patients past history, immunizations, preventative exams/evaluations - colonoscopy, fecal occult blood testing, routine labs for renal function, glucose, cholesterol, osteoporosis evaluations, cardiovascular testing and cancer screenings. We have also discussed mental health and the signs/symptoms of depression. The patient was advised of home safety evaluations and the need to make sure that as the aging process continues, we need to be aware of different ways to make the home a safer place to reside. The patient has also been counseled that exercise is necessary - and of utmost importance as we age to help decrease fall risk and to maintain independence in the home. Today we discussed the need for the patient to create paperwork for Advanced directives as well as for the patient to provide this office with a copy of her DOPA paperwork for health care surrogate. . Medicare Exam - today we discussed the patients past history, immunizations, preventative exams/evaluations - colonoscopy, fecal occult blood testing, routine labs for renal function, glucose, cholesterol, osteoporosis evaluations, cardiovascular testing and cancer screenings. We have also discussed mental health and the signs/symptoms of depression. The patient was advised of home safety evaluations and the need to make sure that as the aging process continues, we need to be aware of different ways to make the home a safer place to reside. The patient has also been counseled that exercise is necessary - and of utmost importance as we age to help decrease fall risk and to maintain independence in the home. Today we discussed the need for the patient to create paperwork for Advanced directives as well as for the patient to provide this office with a copy of her DOPA paperwork for health care surrogate. . Medicare Exam - today we discussed the patients past history, immunizations, preventative exams/evaluations - colonoscopy, fecal occult blood testing, routine labs for renal function, glucose, cholesterol, osteoporosis evaluations, cardiovascular testing and cancer screenings. We have also discussed mental health and the signs/symptoms of depression. The patient was advised of home safety evaluations and the need to make sure that as the aging process continues, we need to be aware of different ways to make the home a safer place to reside. The patient has also been counseled that exercise is necessary - and of utmost importance as we age to help decrease fall risk and to maintain independence in the home. Today we discussed the need for the patient to create paperwork for Advanced directives as well as for the patient to provide this office with a copy of her DOPA paperwork for health care surrogate. . Medicare Exam - today we discussed the patients past history, immunizations, preventative exams/evaluations - colonoscopy, fecal occult blood testing, routine labs for renal function, glucose, cholesterol, osteoporosis evaluations, cardiovascular testing and cancer screenings. We have also discussed mental health and the signs/symptoms of depression. The patient was advised of home safety evaluations and the need to make sure that as the aging process continues, we need to be aware of different ways to make the home a safer place to reside. The patient has also been counseled that exercise is necessary - and of utmost importance as we age to help decrease fall risk and to maintain independence in the home. Today we discussed the need for the patient to create paperwork for Advanced directives as well as for the patient to provide this office with a copy of her DOPA paperwork for health care surrogate. ART REFER TO DR MOCK . Cyst-right cheek-refer to Dr Mock for removal Ekhhukuii-fwqjdm-kmogflrsn symptoms-kenalog injection today in the office- samples of advair provided and instructed on use. . Hypertension - well controlled - continue with current medications, continue with no added salt diet. Pt has been encouraged to exercise daily. The pt has been advised to call the office if there are any acute concerns about change in blood pressure readings at home. Chronic pain - refilled hydrocodone today SI joint pain - injection today in left SI joint - if not improving after a week or so - will refer to Dr. Jackson for injections. Pt to increase his prednisone from 10mg daily to 20mg daily x 5 days then resume his 10mg dose thereafter.
--- OUTSIDE RECORDS SUMMARY | 2018-10-09 14:22 | XMS REPORT | CCD ---
Author Author [facility] Organization [facility] Address [address] [place] [address] Phone Care Team Providers Care Wing Commander Name Role Phone PP Unavailable CCM Unavailable Summary Purpose Interface Exchange Insurance Providers Payer name Policy type / Coverage type Covered libertarian ID Effective Begin Date Effective End Date WPS Medicare Part B Medicare Part B [id number] 2015 Unknown AARP Medicare Part B [id number] 2015 Unknown Family history Mother Diagnosis Age At Onset Dementia Unknown Father Diagnosis Age At Onset lung cancer Unknown Social History Social History Element Codes Description Effective Dates Marital status Unknown Michelle 03/24/2015 Number of children Unknown 3 03/24/2015 Employment Unknown Retired 03/24/[address]: 986649775 Never smoker 03/24/[address]: 130922967 Never drinks alcohol 03/24/2015 Allergies, Adverse Reactions, [...] Start Date Stop Date Status Fill Instructions prednisone 10 mg tablet RxNorm: 069276 Tablet(s) TAKE 1 TABLET BY MOUTH DAILY 09/18/2018 12/11/2019 Active - Ref: [id number] Zofran ODT 4 mg disintegrating tablet RxNorm: 544948 DISSOLVE 1 TABLET IN MOUTH THREE TIMES DAILY 08/30/2018 No Stop Date Active Bactrim DS 800 mg-160 mg tablet RxNorm: 233139 1 Tablet(s) PO BID 08/26/2018 09/04/2018 Inactive Bactrim DS 800 mg-160 mg tablet RxNorm: 700164 1 Tablet(s) PO BID 08/26/2018 08/25/2018 Inactive gabapentin 100 mg capsule RxNorm: 471537 1 Capsule(s) PO TID , if not having improvement in sam after 5 day, may increase up to two pills three times daily 08/22/2018 11/19/2018 Active morphine ER 15 mg tablet,extended release RxNorm: 163463 1 Tablet(s) PO BID 08/22/2018 09/20/2018 Active Zofran ODT 4 mg disintegrating tablet RxNorm: 128277 1 Tablet(s) PO TID 07/25/2018 07/29/2018 Inactive prednisone 20 mg tablet RxNorm: 238999 Tablet(s) PO 07/25/2018 08/21/2018 Inactive 60 ,60,40,40,20,20 morphine ER 15 mg tablet,extended release RxNorm: 917838 1 Tablet(s) PO BID 07/22/2018 08/20/2018 Inactive gabapentin 100 mg capsule RxNorm: 360941 1 Capsule(s) PO TID , if not having improvement in sam after 5 day, may increase up to two pills three times daily 07/22/2018 08/20/2018 Inactive ProAir HFA 90 mcg/actuation aerosol inhaler RxNorm: 365248 USE 1 TO 2 PUFFS EVERY 4 TO 6 HOURS NEEDED 07/02/20182018 Active 3 * 8.5 GM=25.5 GM Total - Ref : [id number] hydrocodone 10 mg-acetaminophen 325 mg tablet RxNorm: 324589 1-2 Tablet(s) PO Q6 as needed for pain 06/20/2018 07/04/2018 Inactive hydrocodone 10 mg-acetaminophen 325 mg tablet RxNorm: 348476 1-2 Tablet(s) PO Q6 as needed for pain 05/20/2018 06/03/2018 Inactive hydrocodone 10 mg-acetaminophen 325 mg tablet RxNorm: 940473 1-2 Tablet(s) PO Q6 as needed for pain 04/17/2018 05/01/2018 Inactive Kenalog 40 mg/mL suspension for injection RxNorm: 6096043 1.5 Milliliter(s) Inj 03/18/2018 03/18/2018 Inactive hydrocodone 10 mg-acetaminophen 325 mg tablet RxNorm: 476502 1-2 Tablet(s) PO Q6 as needed for pain 03/18/2018 04/01/2018 Inactive prednisone 20 mg tablet RxNorm: 802411 1 Tablet(s) PO daily 03/22/2018 Inactive prednisone 10 mg tablet RxNorm: 469478 TAKE 1 TABLET BY MOUTH DAILY 03/11/2018 09/17/2018 Inactive - Ref: [id number] Kenalog 40 mg/mL suspension for injection RxNorm: 6129022 1 Milliliter(s) Inj 02/21/2018 02/21/2018 Inactive hydrocodone 10 mg-acetaminophen 325 mg tablet RxNorm: 226317 1-2 Tablet(s) PO Q6 as needed for pain 02/20/2018 03/06/2018 Inactive hydrocodone 10 mg-acetaminophen 325 mg tablet RxNorm: 156725 1-2 Tablet(s) PO Q6 as needed for pain 01/23/2018 02/06/2018 Inactive hydrocodone 10 mg-acetaminophen 325 mg tablet RxNorm: 284109 1-2 Tablet(s) PO Q6 as needed for pain 12/25/2017 01/08/2018 Inactive doxycycline hyclate 100 mg capsule RxNorm: 6432587 1 Capsule(s) PO BID 11/29/2017 12/08/2017 Inactive doxycycline hyclate 100 mg capsule RxNorm: 3391835 1 Capsule(s) PO BID 11/29/2017 11/28/2017 Inactive hydrocodone 10 mg-acetaminophen 325 mg tablet RxNorm: 536382 1-2 Tablet(s) PO Q6 as needed for pain 11/01/2017 11/15/2017 Inactive hydrocodone 10 mg-acetaminophen 325 mg tablet RxNorm: 376221 1-2 Tablet(s) PO Q6 as needed for pain 10/03/2017 10/17/2017 Inactive ProAir HFA 90 mcg/actuation aerosol inhaler RxNorm: 705220 USE 1 TO 2 PUFFS EVERY 4 TO 6 HOURS NEEDED 09/28/20172017 Inactive 3 * 8.5 GM=25.5 GM Total - Ref: [id number] hydrocodone 10 mg-acetaminophen 325 mg tablet RxNorm: 530267 1-2 Tablet(s) PO Q6 as needed for pain 08/30/2017 09/13/2017 Inactive Benicar 20 mg tablet RxNorm: 945195 Tablet(s) TAKE 1 TABLET BY MOUTH DAILY 08/20/2017 08/14/2018 Inactive Benicar 20 mg tablet RxNorm: 215571 TAKE 1 TABLET BY MOUTH DAILY 08/15/2017 08/19/2017 Inactive - Ref: [id number] azithromycin 250 mg tablet RxNorm: 532937 1 Tablet(s) PO UD two tabs on day #1, the one tab daily x 4 doses 08/07/2017 Inactive hydrocodone 10 mg-acetaminophen 325 mg tablet RxNorm: 102994 1-2 Tablet(s) PO Q6 as needed for pain 07/31/2017 08/14/2017 Inactive prednisone 10 mg tablet RxNorm: 994938 TAKE 1 TABLET BY MOUTH DAILY 07/30/2017 01/25/2018 Inactive - Ref: [id number] hydrocodone 10 mg-acetaminophen 325 mg tablet RxNorm: 475149 1-2 Tablet(s) PO Q6 as needed for pain 06/29/2017 07/13/2017 Inactive ProAir HFA 90 mcg/actuation aerosol inhaler RxNorm: 579897 INHALE ONE TO TWO PUFFS BY MOUTH EVERY 4 TO 6 HOURS NEEDED 06/04/2017 07/21/2017 Inactive hydrocodone 10 mg-acetaminophen 325 mg tablet RxNorm: 490724 1-2 1 Tablet(s) PO Q6 as needed for pain 05/22/20172016 Inactive hydrocodone 10 mg-acetaminophen 325 mg tablet RxNorm: 229334 1-2 1 Tablet(s) PO Q6 as needed for pain 04/30/20172016 Inactive hydrocodone 10 mg-acetaminophen 325 mg tablet RxNorm: 839340 1-2 Tablet(s) PO Q6 as needed for pain 03/30/2017 04/13/2017 Inactive Benicar 20 mg tablet RxNorm: 656654 Take 1 tablet by mouth daily 03/22/2017 08/14/2017 Inactive - First Attempt Ref: [id number] hydrocodone 10 mg-acetaminophen 325 mg tablet RxNorm: 001447 1-2 Tablet(s) PO Q6 as needed for pain 03/01/2017 03/15/2017 Inactive Advair Diskus 250 mcg-50 mcg/dose powder for inhalation RxNorm: 5371253 1 INH daily 02/09/2017 02/03/2018 Inactive prednisone 10 mg tablet RxNorm: 389620 Take 1 tablet by mouth daily 02/01/2017 07/29/2017 Inactive - Ref: [id number] hydrocodone 10 mg-acetaminophen 325 mg tablet RxNorm: 593257 1-2 Tablet(s) PO Q6 as needed for pain 02/01/2017 02/15/2017 Inactive hydrocodone 10 mg-acetaminophen 325 mg tablet RxNorm: 356640 1-2 Tablet(s) PO Q6 as needed for pain 01/03/2017 01/17/2017 Inactive hydrocodone 10 mg-acetaminophen 325 mg tablet RxNorm: 097859 1-2 Tablet(s) PO Q6 as needed for pain 12/11/2016 12/25/2016 Inactive prednisone 10 mg tablet RxNorm: 340619 1 Tablet(s) 1 Tablet(s) PO daily 11/10/2016 01/31/2017 Inactive Zofran 4 mg tablet RxNorm: 905906 1 Tablet(s) PO TID 201611/14/2016 Inactive hydrocodone 10 mg-acetaminophen 325 mg tablet RxNorm: 038960 1-2 Tablet(s) PO Q6 as needed for pain 10/31/2016 11/14/2016 Inactive prednisone 10 mg tablet RxNorm: 729571 Take 1 tablet by mouth daily 10/23/2016 03/17/2018 Inactive - Ref: [id number] Advair Diskus 250 mcg-50 mcg/dose powder for inhalation RxNorm: 8078767 1 INH daily 10/13/2016 01/10/2017 Inactive Kenalog 40 mg/mL suspension for injection RxNorm: 5942335 Milliliter(s) Inj 09/14/2016 09/14/2016 Inactive hydrocodone 10 mg-acetaminophen 325 mg tablet RxNorm: 770553 1-2 Tablet(s) PO Q6 as needed for pain 09/11/2016 09/25/2016 Inactive Benicar 20 mg tablet RxNorm: 451944 Take 1 tablet by mouth daily 09/04/2016 03/02/2017 Inactive - First Attempt Ref: [id number] prednisone 10 mg tablet RxNorm: 230576 1 Tablet(s) 1 Tablet(s) PO daily 08/28/2016 10/22/2016 Inactive Vitamin D2 50,000 unit capsule RxNorm: 229596 1 Capsule(s) PO QW 07/28/2016 05/20/2017 Inactive Kenalog 40 mg/mL suspension for injection RxNorm: 6462169 1.5 Milliliter(s) Inj 07/24/2016 07/24/2016 Inactive hydrocodone 10 mg-acetaminophen 325 mg tablet RxNorm: 769280 1-2 Tablet(s) PO Q6 as needed 07/24/2016 09/10/2016 Inactive hydrocodone 10 mg-acetaminophen 325 mg tablet RxNorm: 730970 1-2 Tablet(s) PO Q6 as needed 06/21/2016 07/05/2016 Inactive ProAir HFA 90 mcg/actuation aerosol inhaler RxNorm: 285454 INHALE ONE TO TWO PUFFS BY MOUTH EVERY 4 TO 6 HOURS NEEDED 06/14/2016 07/17/2016 Inactive prednisone 10 mg tablet RxNorm: 268331 Tablet(s) 1 Tablet(s) PO daily 06/14/2016 08/27/2016 Inactive prednisone 10 mg tablet RxNorm: 708090 1 Tablet(s) PO daily 06/13/2016 Inactive ProAir HFA 90 mcg/actuation aerosol inhaler RxNorm: 781720 INHALE ONE TO TWO PUFFS BY MOUTH EVERY 4 TO 6 HOURS NEEDED 06/13/2016 06/13/2016 Inactive hydrocodone 10 mg-acetaminophen 325 mg tablet RxNorm: 187616 1-2 Tablet(s) PO Q6 as needed 05/15/2016 05/29/2016 Inactive hydrocodone 10 mg-acetaminophen 325 mg tablet RxNorm: 339380 1-2 Tablet(s) PO Q6 as needed 04/17/2016 05/01/2016 Inactive Benicar 20 mg tablet RxNorm: 011568 TAKE ONE TABLET BY MOUTH ONCE DAILY 04/13/2016 09/03/2016 Inactive prednisone 10 mg tablet RxNorm: 995348 1 Tablet(s) PO daily 06/12/2016 Inactive hydrocodone 10 mg-acetaminophen 325 mg tablet RxNorm: 967513 1-2 Tablet(s) PO Q6 as needed 03/07/2016 05/14/2016 Inactive hydrocodone 10 mg-acetaminophen 325 mg tablet RxNorm: 071879 1-2 Tablet(s) PO Q6 as needed 03/07/2016 04/16/2016 Inactive Kenalog 40 mg/mL suspension for injection RxNorm: 1731612 Milliliter(s) Inj 01/24/2016 01/24/2016 Inactive hydrocodone 10 mg-acetaminophen 325 mg tablet RxNorm: 133572 1-2 Tablet(s) PO Q6 as needed 01/19/2016 03/06/2016 Inactive hydrocodone 10 mg-acetaminophen 325 mg tablet RxNorm: 232816 1-2 Tablet(s) PO Q6 as needed 11/30/2015 01/18/2016 Inactive hydrocodone 10 mg-acetaminophen 325 mg tablet RxNorm: 996143 1-2 Tablet(s) PO Q6 as needed 09/22/2015 11/29/2015 Inactive prednisone 10 mg tablet RxNorm: 853039 1 Tablet(s) PO daily 11/10/2015 Inactive Vitamin D2 50,000 unit capsule RxNorm: 290205 1 Capsule(s) PO QW 07/28/2015 07/27/2016 Inactive vitamin d 2000 QD Advair Diskus 250 mcg-50 mcg/dose powder for inhalation RxNorm: 2211665 1 INH daily 07/26/2015 08/24/2015 Inactive ProAir HFA 90 mcg/actuation aerosol inhaler RxNorm: 011043 1-2 Puff(s) INH Q4-6H as needed 07/26/2015 11/22/2015 Inactive Kenalog 40 mg/mL suspension for injection RxNorm: 9029819 1 Milliliter(s) Inj daily 07/26/2015 07/26/2015 Inactive hydrocodone 10 mg-acetaminophen 325 mg tablet RxNorm: 852637 1-2 Tablet(s) PO Q6 as needed 07/15/2015 09/21/2015 Inactive prednisone 10 mg tablet RxNorm: 477683 1 Tablet(s) PO daily 11/201408/12/2015 Inactive hydrocodone 10 mg-acetaminophen 325 mg tablet RxNorm: 533566 1-2 Tablet(s) PO Q6 as needed 05/10/2015 07/14/2015 Inactive Benicar 20 mg tablet RxNorm: 509679 1 Tablet(s) PO daily 201403/30/2016 Inactive Vitamin D2 50,000 unit capsule RxNorm: 599831 1 Capsule(s) PO QW 03/25/2015 07/27/2015 Inactive vitamin d 2000 QD fluorouracil 5 % topical cream RxNorm: 387602 1 TOP daily 03/2404/22/2015 Inactive fluorouracil 5 % topical cream RxNorm: 948268 1 TOP daily 03/2403/23/2015 Inactive Efudex 5 % topical cream RxNorm: 229450 1 Application TOP BID to affected skin x 10 days. Let heal and may reapply 03/24/2015 04/22/2015 Inactive ProAir HFA 90 mcg/actuation aerosol inhaler RxNorm: 8254085 1-2 Puff(s) INH Q4-6H as needed 02/18/2015 02/17/2015 Inactive ProAir HFA 90 mcg/actuation aerosol inhaler RxNorm: 6425723 1-2 Puff(s) INH Q4-6H as needed 02/18/2015 06/17/2015 Inactive Vitamin D3 2,000 unit tablet RxNorm: 316989 1 Tablet(s) PO daily No Start Date 05/20/2017 Inactive Benicar 20 mg tablet RxNorm: 279075 1 Tablet(s) PO daily No Start Date 04/05/2015 Inactive Advair Diskus 250 mcg-50 mcg/dose powder for inhalation RxNorm: 4042228 1 INH daily No Start Date 07/25/2015 Inactive Vitamin D2 50,000 unit capsule RxNorm: 342568 1 Capsule(s) PO QW No Start Date 03/24/2015 Inactive vitamin d 2000 QD prednisone 10 mg tablet RxNorm: 777859 1 Tablet(s) PO daily No Start Date 05/26/2015 Inactive azithromycin 250 mg tablet RxNorm: 951137 1 Tablet(s) PO UD two tabs on day #1, the one tab daily x 4 doses No Start Date 08/06/2017 Inactive hydrocodone 10 mg-acetaminophen 325 mg tablet RxNorm: 470367 1-2 Tablet(s) PO Q6 as needed No Start Date 05/09/2015 Inactive Medication Administered Medication Codes Instructions Start Date Status Kenalog 40 mg/mL suspension for injection RxNorm: 1979185 1.5Milliliter 03/18/2018 No longer Active Kenalog 40 mg/mL suspension for injection RxNorm: 5017762 1Milliliter 02/21/2018 No longer Active Kenalog 40 mg/mL suspension for injection RxNorm: 4474488 Milliliter 09/14/2016 No longer Active Kenalog 40 mg/mL suspension for injection RxNorm: 3290993 1.5Milliliter 07/24/2016 No longer Active Kenalog 40 mg/mL suspension for injection RxNorm: 2443286 Milliliter 01/24/2016 No longer Active Kenalog 40 mg/mL suspension for injection RxNorm: 2044157 1Milliliterdaily 07/26/2015 No longer Active Immunizations Vaccine [...] Code Item Item Code Result Date Carmen 487580 CARMEN (GAY) SCREEN NONE DETECTED 07/27/2018 Sed Rate Ord21 ESR 29 mm/hr 07/26/2018 C-Reactive Protein Qnt Crqnt CRP 5.8 mg/dl 07/25/2018 Ra Factor Usq977 RA FACTOR <10 IU/ml 07/25/2018 Uric Acid Ord77 Uric A 5.2 mg/dL 07/25/2018 Comp Metabolic Mtq195 NA 137 mEq/L 07/25/2018 Comp Metabolic Ouw987 K 3.9 mEq/L 07/25/2018 Comp Metabolic Lax658 CL 100 mEq/L 07/25/2018 Comp Metabolic Wdc677 CO2 28.0 mEq/L 07/25/2018 Comp Metabolic Dts625 ANION GAP 13 07/25/2018 Comp Metabolic Gxs324 GLUCOSE 93 mg/dL 07/25/2018 Comp Metabolic Fuo644 Creat 0.8 mg/dL 07/25/2018 Comp Metabolic Zqe626 eGFR 102 ml/min/1.73m2 07/25/2018 Comp Metabolic Lqk624 BUN 26 mg/dL 07/25/2018 Comp Metabolic Tqm633 B/C Ratio 33.3 Ratio 07/25/2018 Comp Metabolic Ixk392 CALCIUM 9.5 mg/dL 07/25/2018 Comp Metabolic Dff938 ALK PHOS 47 U/L 07/25/2018 Comp Metabolic Tpw726 AST(SGOT) 22 U/L 07/25/2018 Comp Metabolic Ate614 ALT(SGPT) 16 U/L 07/25/2018 Comp Metabolic Xxi151 BILI T 0.6 mg/dL 07/25/2018 Comp Metabolic Efq438 ALBUMIN 3.8 g/dL 07/25/2018 Comp Metabolic Oeo182 TPRO 5.9 g/dL 07/25/2018 Comp Metabolic Plg904 GLOB 2.2 g/dL 07/25/2018 Comp Metabolic Eoe439 A/G Ratio 1.7 Ratio 07/25/2018 Comp Metabolic Drp690 Osmo 278 mOsmo 07/25/2018 Cbc With Differential [...] 29.7 pg 07/25/2018 Cbc With Differential Ord2 Elk% 11.0 % 07/25/2018 Cbc With Differential Ord2 [...] 1.52 K/ul 07/25/2018 Cbc With Differential Ord2 Elk ABS# 1.2 K/ul 07/25/2018 Cbc With Differential [...] 29.4 pg 11/19/2017 Cbc With Differential Ord2 Elk% 13.9 % 11/19/2017 Cbc With Differential Ord2 [...] 2.07 K/ul 11/19/2017 Cbc With Differential Ord2 Elk ABS# 1.1 K/ul 11/19/2017 Cbc With Differential Ord2 Eos ABS# 0.2 K/ul 11/19/2017 Cbc With Differential Ord2 Baso ABS# 0.1 K/ul 11/19/2017 Tsh Ord6 TSH (3rd IS) 1.01 uIU/mL 11/19/2017 Comp Metabolic Qya418 NA 140 mEq/L 11/19/2017 Comp Metabolic Doh829 K 3.8 mEq/L 11/19/2017 Comp Metabolic Ibe373 CL 105 mEq/L 11/19/2017 Comp Metabolic Zpo049 CO2 30.0 mEq/L 11/19/2017 Comp Metabolic Unc766 ANION GAP 9 11/19/2017 Comp Metabolic Ygn591 GLUCOSE 91 mg/dL 11/19/2017 Comp Metabolic Ikq517 Creat 0.6 mg/dL 11/19/2017 Comp Metabolic Wwq406 eGFR 133 ml/min/1.73m2 11/19/2017 Comp Metabolic Pgx655 BUN 16 mg/dL 11/19/2017 Comp Metabolic Pcp334 B/C Ratio 25.8 Ratio 11/19/2017 Comp Metabolic Wij691 CALCIUM 9.6 mg/dL 11/19/2017 Comp Metabolic Qjs475 ALK PHOS 46 U/L 11/19/2017 Comp Metabolic Gta690 AST(SGOT) 17 U/L 11/19/2017 Comp Metabolic Udk100 ALT(SGPT) 13 U/L 11/19/2017 Comp Metabolic Mig388 BILI T 0.4 mg/dL 11/19/2017 Comp Metabolic Rhd556 ALBUMIN 3.6 g/dL 11/19/2017 Comp Metabolic Ypw052 TPRO 5.9 g/dL 11/19/2017 Comp Metabolic Thp296 GLOB 2.3 g/dL 11/19/2017 Comp Metabolic Vim008 A/G Ratio 1.6 Ratio 11/19/2017 Comp Metabolic Bip024 Osmo 280 mOsmo 11/19/2017 Uric Acid Ord77 Uric A 5.5 mg/dL 08/08/2017 Urine Culture Ucult Preliminary NO Growth Day 1 11/27/2016 Urine Culture Ucult Complete NO Growth Day 2 11/27/2016 Vitamin D 25 Oh Vkf5808 VITAMIN D, 25 HYDROXY 28.69 ng/mL Total Psa Ord10 PSA 0.03 ng/mL 07/27/2016 Comp Metabolic Lbx739 NA 138 mEq/L 07/27/2016 Comp Metabolic Okl875 K 4.1 mEq/L 07/27/2016 Comp Metabolic Wlr627 CL 106 mEq/L 07/27/2016 Comp Metabolic Dhd160 CO2 26.0 mEq/L 07/27/2016 Comp Metabolic Nko757 ANION GAP 10 07/27/2016 Comp Metabolic Vdk507 GLUCOSE 102 mg/dL 07/27/2016 Comp Metabolic Ajk744 Creat 0.7 mg/dL 07/27/2016 Comp Metabolic Qtk096 eGFR 125 ml/min/1.73m2 07/27/2016 Comp Metabolic Nkl035 BUN 24 mg/dL 07/27/2016 Comp Metabolic Kjm726 B/C Ratio 36.4 Ratio 07/27/2016 Comp Metabolic Eey801 CALCIUM 10.2 mg/dL 07/27/2016 Comp Metabolic Cak703 ALK PHOS 41 U/L 07/27/2016 Comp Metabolic Zpv860 AST(SGOT) 17 U/L 07/27/2016 Comp Metabolic Gnn583 ALT(SGPT) 14 U/L 07/27/2016 Comp Metabolic Bho647 BILI T 0.5 mg/dL 07/27/2016 Comp Metabolic Wjy057 ALBUMIN 3.9 g/dL 07/27/2016 Comp Metabolic Zgd885 TPRO 6.3 g/dL 07/27/2016 Comp Metabolic Xuo380 GLOB 2.4 g/dL 07/27/2016 Comp Metabolic Ldu415 A/G Ratio 1.6 Ratio 07/27/2016 Comp Metabolic Lfs742 Osmo 280 mOsmo 07/27/2016 Cbc With Differential [...] 29.3 pg 07/27/2016 Cbc With Differential Ord2 Elk% 10.1 % 07/27/2016 Cbc With Differential Ord2 [...] 1.79 K/ul 07/27/2016 Cbc With Differential Ord2 Elk ABS# 0.8 K/ul 07/27/2016 Cbc With Differential Ord2 Eos ABS# 0.1 K/ul 07/27/2016 Cbc With Differential Ord2 Baso ABS# 0.0 K/ul 07/27/2016 Tsh Ord6 hTSH II 1.21 uIU/mL 07/27/2016 Lipid Ord30 CHOL 184 mg/dL 07/27/2016 Lipid Ord30 HDL 53.0 mg/dl 07/27/2016 Lipid Ord30 TRIG 106 mg/dL 07/27/2016 Lipid Ord30 LDL 110 mg/dL 07/27/2016 Lipid Ord30 C/HDL 3.5 Ratio 07/27/2016 Comp Metabolic Hki759 NA 137 mEq/L 07/26/2015 Comp Metabolic Ugv667 K 3.7 mEq/L 07/26/2015 Comp Metabolic Pjp251 CL 103 mEq/L 07/26/2015 Comp Metabolic Vhy574 CO2 26.0 mEq/L 07/26/2015 Comp Metabolic Dqs712 ANION GAP 12 07/26/2015 Comp Metabolic Prm190 GLUCOSE 99 mg/dL 07/26/2015 Comp Metabolic Ffs068 Creat 0.8 mg/dL 07/26/2015 Comp Metabolic Zrj708 eGFR 103 ml/min/1.73m2 07/26/2015 Comp Metabolic Dcs985 BUN 22 mg/dL 07/26/2015 Comp Metabolic Eof520 B/C Ratio 28.2 Ratio 07/26/2015 Comp Metabolic Lxm491 CALCIUM 9.7 mg/dL 07/26/2015 Comp Metabolic Vbz738 ALK PHOS 40 U/L 07/26/2015 Comp Metabolic Kgb102 AST(SGOT) 26 U/L 07/26/2015 Comp Metabolic Klr317 ALT(SGPT) 20 U/L 07/26/2015 Comp Metabolic Czo084 BILI T 0.5 mg/dL 07/26/2015 Comp Metabolic Lex536 ALBUMIN 3.9 g/dL 07/26/2015 Comp Metabolic Ifq581 TPRO 6.4 g/dL 07/26/2015 Comp Metabolic Mya246 GLOB 2.5 g/dL 07/26/2015 Comp Metabolic Cnv611 A/G Ratio 1.6 Ratio 07/26/2015 Comp Metabolic Nka011 Osmo 277 mOsmo 07/26/2015 Tsh Ord6 hTSH [...] 0.01 ng/mL 07/26/2015 Vitamin D 25 Oh Eum7545 VITAMIN D, 25 HYDROXY 31.47 ng/mL Review [...] accomodation 11/19/2017 None Full Exam - General 1994 Ears/Nose/Throat otoscopic exam Overall: external auditory canals clear 11/19/2017 None Full Exam - General 1994 Ears/Nose/Throat otoscopic exam Overall: tympanic membranes clear 11/19/2017 None Full Exam - General 1994 Ears/Nose/Throat lips/teeth/gingiva Overall: benign lips 11/19/2017 None Full Exam - General 1994 Ears/Nose/Throat lips/teeth/gingiva Overall: normal dentition 11/19/2017 None Full Exam - General 1995 Ears/Nose/Throat oral cavity/pharynx/larynx Overall: oral mucosa clear [...] normal 11/23/2016 None Full Exam - General 1995 Ears/Nose/Throat lips/teeth/gingiva Overall: benign lips 11/23/2016 None [...] clear 11/20/2016 None Full Exam - General 1995 Ears/Nose/Throat otoscopic exam Overall: tympanic membranes clear 11/20/2016 None Full Exam - General 1994 Ears/Nose/Throat lips/teeth/gingiva Overall: benign lips 11/20/2016 None Full Exam - General 1995 Ears/Nose/Throat lips/teeth/gingiva Overall: normal dentition 11/20/2016 None [...] General 1994 Ears/Nose/Throat lips/teeth/gingiva Overall: benign lips 07/26/2015 None [...] CPT -4: G0439 08/05/2018 DRAIN/INJECT JOINT/BURSA CPT-4: 13274 03/18/2018 TRIAMCINOLONE ACET INJ NOS CPT-4: J3301 03/18/2018 THER/PROPH/DIAG INJ SC/IM CPT-4: 92416 02/21/2018 TRIAMCINOLONE ACET INJ NOS CPT-4: J3301 02/21/2018 PPPS, SUBSEQ VISIT CPT -4: G0439 05/22/2017 TRIAMCINOLONE ACET INJ NOS CPT-4: J3301 09/14/2016 TRIAMCINOLONE ACET INJ NOS CPT-4: J3301 07/24/2016 THER/PROPH/DIAG INJ SC/IM CPT-4: 60026 07/24/2016 TRIAMCINOLONE ACET INJ NOS CPT-4: J3301 01/24/2016 TRIAMCINOLONE ACET INJ NOS CPT-4: J3301 07/26/2015 THER/PROPH/DIAG INJ SC/IM CPT-4: 70826 07/26/2015 Vital Signs Date Vital 08/26/2018 Blood Pressure 1: 166/84 Code : 8480-6 Heart Rate 1: 80 bpm Height: 6'4" SpO2: 98% Temperature: 36.7 (C) / 98.1 (F) Weight: 08/05/2018 Blood Pressure 1: 118/64 Code : 8480-6 BMI: 26.2 Code : 41341-9 Heart Rate 1 : 66 bpm Height: 6'4" SpO2: 97% Waist Measure (cm): 81 cm Weight: 215 lbs 07/25/2018 Blood Pressure 1: 128/78 Code : 8480-6 BMI: 26.2 Code : 47312-9 Heart Rate 1 : 68 bpm Height: 6'4" SpO2: 95% Weight: 215 lbs 07/22/2018 Blood Pressure 1: 142/78 Code : 8480-6 BMI: 26.7 Code : 64990-6 Heart Rate 1 : 64 bpm Height: 6'4" SpO2: 99% Weight: 219 lbs 03/18/2018 Blood Pressure 1: 136/84 Code : 8480-6 BMI: 26.5 Code : 36735-3 Heart Rate 1 : 79 bpm Height: 6'4" SpO2: 99% Weight: 218 lbs 11/27/2017 Blood Pressure 1: 132/64 Code : 8480-6 BMI: 27.8 Code : 46378-7 Heart Rate 1 : 41 bpm Height: 6'4" SpO2: 97% Weight: 228 lbs 11/19/2017 Blood Pressure 1: 140/88 Code : 8480-6 Blood Pressure 1: 148/76 Code: 8480-6 BMI: 27.3 Code: 57238-7 Heart Rate 1: 58 bpm Height: 6'4" SpO2: 98% Weight: 224 lbs 08/08/2017 Blood Pressure 1: 130/80 Code : 8480-6 BMI: 26.5 Code : 35165-8 Heart Rate 1 : 71 bpm Height: 6'4" SpO2: 98% Weight: 218 lbs 05/22/2017 Blood Pressure 1: 142/78 Code : 8480-6 BMI: 28.0 Code : 27352-1 Heart Rate 1 : 77 bpm Height: 6'4" SpO2: 94% Waist Measure (cm): 91 cm Weight: 230 lbs 05/21/2017 Blood Pressure 1: 144/72 Code : 8480-6 BMI: 28.1 Code : 34207-7 Heart Rate 1 : 74 bpm Height: 6'4" SpO2: 95% Weight: 230 lbs 8 oz 11/23/2016 Blood Pressure 1: 136/74 Code : 8480-6 BMI: 29.9 Code : 25318-6 Heart Rate 1 : 59 bpm Height: 6'4" SpO2: 94% Weight: 246 lbs 11/20/2016 Blood Pressure 1: 130/80 Code : 8480-6 BMI: 29.9 Code : 85486-9 Heart Rate 1 : 75 bpm Height: 6'4" SpO2: 98% Weight: 246 lbs 11/10/2016 Blood Pressure 1: 140/82 Code : 8480-6 BMI: 29.7 Code : 57132-5 Heart Rate 1 : 64 bpm Height: 6'4" SpO2: 94% Weight: 244 lbs 09/14/2016 Blood Pressure 1: 130/82 Code : 8480-6 BMI: 27.4 Code : 59425-5 Heart Rate 1 : 74 bpm Height: 6'4" SpO2: 96% Weight: 225 lbs 07/24/2016 Blood Pressure 1: 128/78 Code : 8480-6 BMI: 27.4 Code : 51549-6 Heart Rate 1 : 78 bpm Height: 6'4" SpO2: 94% Weight: 225 lbs 01/24/2016 Blood Pressure 1: 124/88 Code : 8480-6 BMI: 29.5 Code : 56720-5 Heart Rate 1 : 68 bpm Height: 6'4" SpO2: 98% Weight: 242 lbs 07/26/2015 Blood Pressure 1: 150/82 Code : 8480-6 Blood Pressure 1: 138/82 Code: 8480-6 BMI: 29.9 Code: 58905-9 Heart Rate 1: 68 bpm Height: 6'4" SpO2: 94% Weight: 246 lbs 03/24/2015 Blood Pressure 1: 114/84 Code : 8480-6 BMI: 29.8 Code : 36147-5 Heart Rate 1 : 67 bpm Height: [...] data Encounters Encounter Performer Location Codes Date 33110 EST. PATIENT, LEVEL III Diagnosis: Diverticulitis of large intestine with perforation and abscess without bleeding[ICD10: K57.20] [facility] CPT-4: 13178 08/26/2018 [id number] EST. PATIENT, LEVEL IV Diagnosis: Pain in left wrist[ICD10: M25.532] Diagnosis: Other malaise[ICD10: R53.81] Diagnosis: Other fatigue[ICD10: R53.83] Lizz Hussein MD, [facility] CPT-4 : 69422 07/25/2018 ([id number]) [id number] EST. PATIENT, LEVEL IV Diagnosis: Essential (primary) hypertension[ICD10: I10] Diagnosis: Chronic pain syndrome[ICD10: G89.4] Diagnosis: Low back pain[ICD10: M54.5] Beverly Hussein MD, [facility] CPT- 4: 81320 07/22/2018 ([id number]) 85066 EST. PATIENT, LEVEL III Diagnosis: Sacroiliitis, not elsewhere classified[ICD10: M46.1] Diagnosis: Spinal instabilities, sacral and sacrococcygeal region[ICD10: M53.2X8 ] Diagnosis: Essential (primary) hypertension[ICD10: I10] Diagnosis: Chronic pain syndrome[ICD10: G89.4] Beverly Hussein MD, [facility] CPT-4: 24384 03/18/2018 [id number] EST. PATIENT, LEVEL III Diagnosis: Pain in right knee[ICD10: M25.561] Lizz Hussein MD, [facility] CPT-4: 59743 11/27/2017 ([id number]) 46218 EST. PATIENT, LEVEL IV Diagnosis: Essential (primary) hypertension[ICD10: I10] Diagnosis: Chronic pain syndrome[ICD10: G89.4] Diagnosis: Vitamin D deficiency, unspecified[ICD10: E55.9] Beverly Hussein MD, [facility] CPT-4: 56542 11/19/2017 ([id number]) 04161 EST. PATIENT, LEVEL III Diagnosis: Olecranon bursitis, right elbow[ICD10: M70.21] Beverly Hussein MD, [facility] CPT-4: 24294 08/08/2017 ([id number]) 80248 EST. PATIENT, LEVEL IV Diagnosis: Essential (primary) hypertension[ICD10: I10] Diagnosis: Low back pain[ICD10: M54.5] Beverly Hussein MD, [facility] CPT- 4: 89934 05/21/2017 58387 EST. PATIENT, LEVEL III Diagnosis: Calculus of kidney[ICD10: N20.0] Lizz Hussein MD, [facility] CPT- 4: 43693 11/23/2016 ([id number]) 67005 EST. PATIENT, LEVEL III Diagnosis: Essential (primary) hypertension[ICD10: I10] Beverly Hussein MD, [facility] CPT-4: 76114 11/20/2016 76387 EST. PATIENT, LEVEL III Diagnosis: Nausea[ICD10: R11.0] Lizz Hussein MD, [facility] CPT-4: 97631 11/10/2016 ([id number]) 36891 EST. PATIENT, LEVEL III Diagnosis: Allergic rhinitis due to pollen[ICD10: J30.1] Diagnosis: Other benign neoplasm of skin of unspecified part of face[ICD10: D23.30] [facility] CPT-4: 42047 ([id number]) 53032 EST. PATIENT, LEVEL IV Diagnosis: Essential (primary) hypertension[ICD10: I10] Diagnosis: Vitamin D deficiency, unspecified[ICD10: E55.9] Diagnosis: Low back pain[ICD10: M54.5] Diagnosis: Mild intermittent asthma with (acute) exacerbation[ICD10: J45.21] [facility] CPT-4: 05797 07/24/2016 ([id number]) 10858 EST. PATIENT, LEVEL IV Diagnosis: Essential (primary) hypertension[ICD10: I10] Diagnosis: Allergic rhinitis due to pollen[ICD10: J30.1] Diagnosis: Low back pain[ICD10: M54.5] [facility] CPT-4: 94991 01/24/2016 ([id number]) 64392 EST. PATIENT, LEVEL IV Diagnosis: Essential (primary) hypertension[ICD10: I10] Diagnosis: Vitamin D deficiency, unspecified[ICD10: E55.9] Diagnosis: Chronic pain syndrome[ICD10: G89.4] Diagnosis: Allergic rhinitis, unspecified[ICD10: J30.9] Kelsy Hussein MD, [facility] CPT-4: 26269 07/26/2015 ([id number]) OFFICE VISIT, NEW - LEVEL 4 Diagnosis: ESSENTIAL HYPERTENSION[ICD9: 401.9] Diagnosis: CHRONIC PAIN SYNDROME[ICD9: 338.4] Diagnosis: Skin change[ICD9: 782.9] Beverly Hussein MD, [facility] CPT-4: 11889 03/24/2015 Plan of Care Planned Activity Notes Codes Status Date Appointment: Lizz Wilks WPtel: [address] [place], [place] [id number] [place] (15 min) Moderate 08/30/2018 Appointment: Kelsy Hsu WPtel: [phone] [place] (15 min) Moderate 08/27/2018 Visit Plan: [...] 4PM today. 08/26/2018 Appointment: Lizz Wilks WPtel: [id number] (30 min) Complex 08/26/2018 Patient Education: Patient Medication Summary Completed 08/26/2018 Appointment: Kelsy Hsu WPtel: [phone] [place] (15 min) Moderate 08/19/2018 Appointment: Lizz Wilks WPtel: [id number] (15 min) Moderate 08/07/2018 Visit Plan: Medicare [...] for health care surrogate. 08/05/2018 Appointment: Lizz Wilks [facility]Ptel[id number] M[facility] - Annual Wellness Visit 08/05/2018 Patient Education: [...] or concerns. 07/25/2018 Appointment: [facility] Wilks [facility]el[id number] (15 min) Moderate 07/25/2018 Patient Education: Patient [...] today - 07/22/2018 Appointment: [facility] Hussein [facility] ([facility] min) Moderate 07/22/2018 Patient Education: Patient [...] dose thereafter. 03/18/2018 Appointment: [phone] (15 min) Moderate 03/18/2018 Patient Education: Patient [...] not improve. 11/27/2017 Appointment: [facility] Wilks [facility]el[phone] (30 min) Complex 11/27/2017 Patient Education: Patient Medication Summary Completed 11/27/2017 Care Plan: X-RAY EXAM OF KNEE 3 [facility] : 34702-3 Pending 11/27/2017 Visit Plan: Hypertension -usually pt [...] medications. 11/19/2017 Appointment: [phone] (15 min) Moderate 11/19/2017 Patient Education: Patient [...] care surrogate. 05/22/2017 Appointment: Kelsy Hsu WPtel: [phone] [phone] [facility] - Annual Wellness Visit 05/22/2017 Patient Education: [...] into Yoga. 05/21/2017 Appointment: Beverly Hussein WPtel: [phone] [facility] (15 min) Moderate 05/21/2017 Patient Education: Patient Medication Summary Completed 05/21/2017 Patient Education: Hypertension Completed 05/21/2017 Care Plan: X-RAY EXAM OF ABDOMEN LOINC : 78002-3 Pending 12/17/2016 Visit Plan: Left flank pain - KUB shows renal caliculi - will refer to Dr. Robledo. Pt is to notify clinic with any changes or concerns. 11/23/2016 Appointment: Lizz Wilks WPtel: [phone] [facility] (15 min) Moderate 11/23/2016 Patient Education: Patient [...] right cheek 11/20/2016 Appointment: Beverly Hussein WPtel: [phone] [facility] (15 min) Moderate 11/20/2016 Patient Education: Patient [...] esophageal reflux. 11/10/2016 Appointment: Lizz Wilks WPtel: [facility] (30 min) Complex 11/10/2016 Patient Education: Patient Medication Summary Completed 11/10/2016 Referral: Poncho Mock [place] [phone] Referral Completed 11/03/2016 Visit Plan: Cyst-right cheek-refer to Dr Mock for removal Dvtlgavyz-agbuoq-qxosxmmzr symptoms-kenalog injection today in the office- samples of advair provided and instructed on use. 09/14/2016 Appointment: Kelsy Hsu WPtel: [phone] [phone] [place] (30 min) Complex 09/14/2016 Patient Education: Patient Medication Summary Completed 09/14/2016 Care Plan: Referral Order SNOMED-CT : [id number] Pending 09/14/2016 Visit Plan: Hypertension - well [...] therapy-refill hydrocodone for prn use 07/24/2016 Appointment: HsuKelsy WPtel: [phone] (15 min) Moderate 07/24/2016 Patient Education: Patient [...] spray. Kenalog injection today in the office Dniam-Dvjrhw-zimgdt to symbicort Low back pain-recommend stretches for [...] Patient Education: Hypertension Completed 03/24/2015 [id number] [facility] Requested Instructions Comment . Olecranon [...] spray. Kenalog injection today in the office Ljvhz-Tpkxss-owlubh to symbicort Low back pain-recommend stretches for [...] Cyst-right cheek-refer to Dr Mock for removal Xerjuntvk-holjnh-dkrlstxjk symptoms-kenalog injection today in the office- samples [...]
--- OUTSIDE RECORDS SUMMARY | 2018-10-09 14:25 | XMS REPORT | CCD ---
Author Author [facility] Organization [facility] Address [address] [place] [address] Phone Care Team Providers Care It Teacher Name Role Phone PP Unavailable CCM Unavailable Summary Purpose Interface Exchange Insurance Providers Payer name Policy type / Coverage type Covered constitution party ID Effective Begin Date Effective End Date WPS Medicare Part B Medicare Part B [id number] 2015 Unknown AARP Medicare Part B [id number] 2015 Unknown Family history Mother Diagnosis Age At Onset Dementia Unknown Father Diagnosis Age At Onset lung cancer Unknown Social History Social History Element Codes Description Effective Dates Marital status Unknown Michelle 03/24/2015 Number of children Unknown 3 03/24/2015 Employment Unknown Retired 03/24/[address]: 080881621 Never smoker 03/24/[address]: 421277973 Never drinks alcohol 03/24/2015 Allergies, Adverse Reactions, [...] Start Date Stop Date Status Fill Instructions Zofran ODT 4 mg disintegrating tablet RxNorm: 673750 DISSOLVE 1 TABLET IN MOUTH THREE TIMES DAILY 08/30/2018 No Stop Date Active Bactrim DS 800 mg-160 mg tablet RxNorm: 863301 1 Tablet(s) PO BID 08/26/2018 09/04/2018 Active Bactrim DS 800 mg-160 mg tablet RxNorm: 831321 1 Tablet(s) PO BID 08/26/2018 08/25/2018 Inactive gabapentin 100 mg capsule RxNorm: 111117 1 Capsule(s) PO TID , if not having improvement in sam after 5 day, may increase up to two pills three times daily 08/22/2018 11/19/2018 Active morphine ER 15 mg tablet,extended release RxNorm: 949689 1 Tablet(s) PO BID 08/22/2018 09/20/2018 Active Zofran ODT 4 mg disintegrating tablet RxNorm: 753815 1 Tablet(s) PO TID 07/25/2018 07/29/2018 Inactive prednisone 20 mg tablet RxNorm: 821989 Tablet(s) PO 07/25/2018 08/21/2018 Inactive 60 ,60,40,40,20,20 morphine ER 15 mg tablet,extended release RxNorm: 160907 1 Tablet(s) PO BID 07/22/2018 08/20/2018 Inactive gabapentin 100 mg capsule RxNorm: 150057 1 Capsule(s) PO TID , if not having improvement in sam after 5 day, may increase up to two pills three times daily 07/22/2018 08/20/2018 Inactive ProAir HFA 90 mcg/actuation aerosol inhaler RxNorm: 294789 USE 1 TO 2 PUFFS EVERY 4 TO 6 HOURS NEEDED 07/02/20182018 Active 3 * 8.5 GM=25.5 GM Total - Ref : [id number] hydrocodone 10 mg-acetaminophen 325 mg tablet RxNorm: 779269 1-2 Tablet(s) PO Q6 as needed for pain 06/20/2018 07/04/2018 Inactive hydrocodone 10 mg-acetaminophen 325 mg tablet RxNorm: 477429 1-2 Tablet(s) PO Q6 as needed for pain 05/20/2018 06/03/2018 Inactive hydrocodone 10 mg-acetaminophen 325 mg tablet RxNorm: 182201 1-2 Tablet(s) PO Q6 as needed for pain 04/17/2018 05/01/2018 Inactive Kenalog 40 mg/mL suspension for injection RxNorm: 7383218 1.5 Milliliter(s) Inj 03/18/2018 03/18/2018 Inactive hydrocodone 10 mg-acetaminophen 325 mg tablet RxNorm: 546571 1-2 Tablet(s) PO Q6 as needed for pain 03/18/2018 04/01/2018 Inactive prednisone 20 mg tablet RxNorm: 098416 1 Tablet(s) PO daily 03/22/2018 Inactive prednisone 10 mg tablet RxNorm: 662611 TAKE 1 TABLET BY MOUTH DAILY 03/11/2018 06/03/2019 Active - Ref: [id number] Kenalog 40 mg/mL suspension for injection RxNorm: 3308054 1 Milliliter(s) Inj 02/21/2018 02/21/2018 Inactive hydrocodone 10 mg-acetaminophen 325 mg tablet RxNorm: 411280 1-2 Tablet(s) PO Q6 as needed for pain 02/20/2018 03/06/2018 Inactive hydrocodone 10 mg-acetaminophen 325 mg tablet RxNorm: 660948 1-2 Tablet(s) PO Q6 as needed for pain 01/23/2018 02/06/2018 Inactive hydrocodone 10 mg-acetaminophen 325 mg tablet RxNorm: 828285 1-2 Tablet(s) PO Q6 as needed for pain 12/25/2017 01/08/2018 Inactive doxycycline hyclate 100 mg capsule RxNorm: 1225346 1 Capsule(s) PO BID 11/29/2017 12/08/2017 Inactive doxycycline hyclate 100 mg capsule RxNorm: 8280079 1 Capsule(s) PO BID 11/29/2017 11/28/2017 Inactive hydrocodone 10 mg-acetaminophen 325 mg tablet RxNorm: 264177 1-2 Tablet(s) PO Q6 as needed for pain 11/01/2017 11/15/2017 Inactive hydrocodone 10 mg-acetaminophen 325 mg tablet RxNorm: 682292 1-2 Tablet(s) PO Q6 as needed for pain 10/03/2017 10/17/2017 Inactive ProAir HFA 90 mcg/actuation aerosol inhaler RxNorm: 731749 USE 1 TO 2 PUFFS EVERY 4 TO 6 HOURS NEEDED 09/28/20172017 Inactive 3 * 8.5 GM=25.5 GM Total - Ref: [id number] hydrocodone 10 mg-acetaminophen 325 mg tablet RxNorm: 778569 1-2 Tablet(s) PO Q6 as needed for pain 08/30/2017 09/13/2017 Inactive Benicar 20 mg tablet RxNorm: 030430 Tablet(s) TAKE 1 TABLET BY MOUTH DAILY 08/20/2017 08/14/2018 Inactive Benicar 20 mg tablet RxNorm: 188556 TAKE 1 TABLET BY MOUTH DAILY 08/15/2017 08/19/2017 Inactive - Ref: [id number] azithromycin 250 mg tablet RxNorm: 365625 1 Tablet(s) PO UD two tabs on day #1, the one tab daily x 4 doses 08/07/2017 Inactive hydrocodone 10 mg-acetaminophen 325 mg tablet RxNorm: 729291 1-2 Tablet(s) PO Q6 as needed for pain 07/31/2017 08/14/2017 Inactive prednisone 10 mg tablet RxNorm: 846755 TAKE 1 TABLET BY MOUTH DAILY 07/30/2017 01/25/2018 Inactive - Ref: [id number] hydrocodone 10 mg-acetaminophen 325 mg tablet RxNorm: 087760 1-2 Tablet(s) PO Q6 as needed for pain 06/29/2017 07/13/2017 Inactive ProAir HFA 90 mcg/actuation aerosol inhaler RxNorm: 427416 INHALE ONE TO TWO PUFFS BY MOUTH EVERY 4 TO 6 HOURS NEEDED 06/04/2017 07/21/2017 Inactive hydrocodone 10 mg-acetaminophen 325 mg tablet RxNorm: 533341 1-2 1 Tablet(s) PO Q6 as needed for pain 05/22/20172016 Inactive hydrocodone 10 mg-acetaminophen 325 mg tablet RxNorm: 666772 1-2 1 Tablet(s) PO Q6 as needed for pain 04/30/20172016 Inactive hydrocodone 10 mg-acetaminophen 325 mg tablet RxNorm: 413094 1-2 Tablet(s) PO Q6 as needed for pain 03/30/2017 04/13/2017 Inactive Benicar 20 mg tablet RxNorm: 472083 Take 1 tablet by mouth daily 03/22/2017 08/14/2017 Inactive - First Attempt Ref: [id number] hydrocodone 10 mg-acetaminophen 325 mg tablet RxNorm: 386891 1-2 Tablet(s) PO Q6 as needed for pain 03/01/2017 03/15/2017 Inactive Advair Diskus 250 mcg-50 mcg/dose powder for inhalation RxNorm: 6975565 1 INH daily 02/09/2017 02/03/2018 Inactive prednisone 10 mg tablet RxNorm: 696045 Take 1 tablet by mouth daily 02/01/2017 07/29/2017 Inactive - Ref: [id number] hydrocodone 10 mg-acetaminophen 325 mg tablet RxNorm: 615295 1-2 Tablet(s) PO Q6 as needed for pain 02/01/2017 02/15/2017 Inactive hydrocodone 10 mg-acetaminophen 325 mg tablet RxNorm: 952905 1-2 Tablet(s) PO Q6 as needed for pain 01/03/2017 01/17/2017 Inactive hydrocodone 10 mg-acetaminophen 325 mg tablet RxNorm: 079232 1-2 Tablet(s) PO Q6 as needed for pain 12/11/2016 12/25/2016 Inactive prednisone 10 mg tablet RxNorm: 051136 1 Tablet(s) 1 Tablet(s) PO daily 11/10/2016 01/31/2017 Inactive Zofran 4 mg tablet RxNorm: 959290 1 Tablet(s) PO TID 201611/14/2016 Inactive hydrocodone 10 mg-acetaminophen 325 mg tablet RxNorm: 531582 1-2 Tablet(s) PO Q6 as needed for pain 10/31/2016 11/14/2016 Inactive prednisone 10 mg tablet RxNorm: 273414 Take 1 tablet by mouth daily 10/23/2016 03/17/2018 Inactive - Ref: [id number] Advair Diskus 250 mcg-50 mcg/dose powder for inhalation RxNorm: 1526685 1 INH daily 10/13/2016 01/10/2017 Inactive Kenalog 40 mg/mL suspension for injection RxNorm: 1403226 Milliliter(s) Inj 09/14/2016 09/14/2016 Inactive hydrocodone 10 mg-acetaminophen 325 mg tablet RxNorm: 482047 1-2 Tablet(s) PO Q6 as needed for pain 09/11/2016 09/25/2016 Inactive Benicar 20 mg tablet RxNorm: 264349 Take 1 tablet by mouth daily 09/04/2016 03/02/2017 Inactive - First Attempt Ref: [id number] prednisone 10 mg tablet RxNorm: 660207 1 Tablet(s) 1 Tablet(s) PO daily 08/28/2016 10/22/2016 Inactive Vitamin D2 50,000 unit capsule RxNorm: 507239 1 Capsule(s) PO QW 07/28/2016 05/20/2017 Inactive Kenalog 40 mg/mL suspension for injection RxNorm: 0818482 1.5 Milliliter(s) Inj 07/24/2016 07/24/2016 Inactive hydrocodone 10 mg-acetaminophen 325 mg tablet RxNorm: 208627 1-2 Tablet(s) PO Q6 as needed 07/24/2016 09/10/2016 Inactive hydrocodone 10 mg-acetaminophen 325 mg tablet RxNorm: 435263 1-2 Tablet(s) PO Q6 as needed 06/21/2016 07/05/2016 Inactive ProAir HFA 90 mcg/actuation aerosol inhaler RxNorm: 013033 INHALE ONE TO TWO PUFFS BY MOUTH EVERY 4 TO 6 HOURS NEEDED 06/14/2016 07/17/2016 Inactive prednisone 10 mg tablet RxNorm: 375779 Tablet(s) 1 Tablet(s) PO daily 06/14/2016 08/27/2016 Inactive prednisone 10 mg tablet RxNorm: 090848 1 Tablet(s) PO daily 06/13/2016 Inactive ProAir HFA 90 mcg/actuation aerosol inhaler RxNorm: 906391 INHALE ONE TO TWO PUFFS BY MOUTH EVERY 4 TO 6 HOURS NEEDED 06/13/2016 06/13/2016 Inactive hydrocodone 10 mg-acetaminophen 325 mg tablet RxNorm: 760917 1-2 Tablet(s) PO Q6 as needed 05/15/2016 05/29/2016 Inactive hydrocodone 10 mg-acetaminophen 325 mg tablet RxNorm: 124278 1-2 Tablet(s) PO Q6 as needed 04/17/2016 05/01/2016 Inactive Benicar 20 mg tablet RxNorm: 428907 TAKE ONE TABLET BY MOUTH ONCE DAILY 04/13/2016 09/03/2016 Inactive prednisone 10 mg tablet RxNorm: 954150 1 Tablet(s) PO daily 06/12/2016 Inactive hydrocodone 10 mg-acetaminophen 325 mg tablet RxNorm: 732912 1-2 Tablet(s) PO Q6 as needed 03/07/2016 05/14/2016 Inactive hydrocodone 10 mg-acetaminophen 325 mg tablet RxNorm: 177760 1-2 Tablet(s) PO Q6 as needed 03/07/2016 04/16/2016 Inactive Kenalog 40 mg/mL suspension for injection RxNorm: 1450204 Milliliter(s) Inj 01/24/2016 01/24/2016 Inactive hydrocodone 10 mg-acetaminophen 325 mg tablet RxNorm: 004224 1-2 Tablet(s) PO Q6 as needed 01/19/2016 03/06/2016 Inactive hydrocodone 10 mg-acetaminophen 325 mg tablet RxNorm: 199172 1-2 Tablet(s) PO Q6 as needed 11/30/2015 01/18/2016 Inactive hydrocodone 10 mg-acetaminophen 325 mg tablet RxNorm: 447619 1-2 Tablet(s) PO Q6 as needed 09/22/2015 11/29/2015 Inactive prednisone 10 mg tablet RxNorm: 230183 1 Tablet(s) PO daily 11/10/2015 Inactive Vitamin D2 50,000 unit capsule RxNorm: 214496 1 Capsule(s) PO QW 07/28/2015 07/27/2016 Inactive vitamin d 2000 QD Advair Diskus 250 mcg-50 mcg/dose powder for inhalation RxNorm: 8453707 1 INH daily 07/26/2015 08/24/2015 Inactive ProAir HFA 90 mcg/actuation aerosol inhaler RxNorm: 025426 1-2 Puff(s) INH Q4-6H as needed 07/26/2015 11/22/2015 Inactive Kenalog 40 mg/mL suspension for injection RxNorm: 4839101 1 Milliliter(s) Inj daily 07/26/2015 07/26/2015 Inactive hydrocodone 10 mg-acetaminophen 325 mg tablet RxNorm: 748503 1-2 Tablet(s) PO Q6 as needed 07/15/2015 09/21/2015 Inactive prednisone 10 mg tablet RxNorm: 392827 1 Tablet(s) PO daily 11/201408/12/2015 Inactive hydrocodone 10 mg-acetaminophen 325 mg tablet RxNorm: 918641 1-2 Tablet(s) PO Q6 as needed 05/10/2015 07/14/2015 Inactive Benicar 20 mg tablet RxNorm: 453377 1 Tablet(s) PO daily 201403/30/2016 Inactive Vitamin D2 50,000 unit capsule RxNorm: 892252 1 Capsule(s) PO QW 03/25/2015 07/27/2015 Inactive vitamin d 2000 QD fluorouracil 5 % topical cream RxNorm: 014524 1 TOP daily 03/2404/22/2015 Inactive fluorouracil 5 % topical cream RxNorm: 458427 1 TOP daily 03/2403/23/2015 Inactive Efudex 5 % topical cream RxNorm: 700388 1 Application TOP BID to affected skin x 10 days. Let heal and may reapply 03/24/2015 04/22/2015 Inactive ProAir HFA 90 mcg/actuation aerosol inhaler RxNorm: 5269316 1-2 Puff(s) INH Q4-6H as needed 02/18/2015 02/17/2015 Inactive ProAir HFA 90 mcg/actuation aerosol inhaler RxNorm: 3868342 1-2 Puff(s) INH Q4-6H as needed 02/18/2015 06/17/2015 Inactive Vitamin D3 2,000 unit tablet RxNorm: 263569 1 Tablet(s) PO daily No Start Date 05/20/2017 Inactive Benicar 20 mg tablet RxNorm: 888635 1 Tablet(s) PO daily No Start Date 04/05/2015 Inactive Advair Diskus 250 mcg-50 mcg/dose powder for inhalation RxNorm: 5542355 1 INH daily No Start Date 07/25/2015 Inactive Vitamin D2 50,000 unit capsule RxNorm: 793352 1 Capsule(s) PO QW No Start Date 03/24/2015 Inactive vitamin d 2000 QD prednisone 10 mg tablet RxNorm: 543523 1 Tablet(s) PO daily No Start Date 05/26/2015 Inactive azithromycin 250 mg tablet RxNorm: 234449 1 Tablet(s) PO UD two tabs on day #1, the one tab daily x 4 doses No Start Date 08/06/2017 Inactive hydrocodone 10 mg-acetaminophen 325 mg tablet RxNorm: 870206 1-2 Tablet(s) PO Q6 as needed No Start Date 05/09/2015 Inactive Medication Administered Medication Codes Instructions Start Date Status Kenalog 40 mg/mL suspension for injection RxNorm: 3459661 1.5Milliliter 03/18/2018 No longer Active Kenalog 40 mg/mL suspension for injection RxNorm: 6213698 1Milliliter 02/21/2018 No longer Active Kenalog 40 mg/mL suspension for injection RxNorm: 7360425 Milliliter 09/14/2016 No longer Active Kenalog 40 mg/mL suspension for injection RxNorm: 2840922 1.5Milliliter 07/24/2016 No longer Active Kenalog 40 mg/mL suspension for injection RxNorm: 8349821 Milliliter 01/24/2016 No longer Active Kenalog 40 mg/mL suspension for injection RxNorm: 3524516 1Milliliterdaily 07/26/2015 No longer Active Immunizations Vaccine [...] Other fatigue ICD-10: R53.83 ICD-9: 780.79 07/25/2018 Pain in left wrist ICD-10: M25.532 ICD-9: 719.43 07/25/2018 Other malaise ICD-10: R53.81 ICD-9: 780.79 07/25/2018 Chronic pain syndrome ICD-10: G89.4 ICD-9: 338.4 07/22/2018 Essential (primary) hypertension ICD-10: I10 ICD-9: 401.1 07/22/2018 Low back pain ICD-10: M54.5 ICD-9: 724.2 07/22/2018 Spinal instabilities, sacral and sacrococcygeal region [...] abnormal findings ICD-10: Z00.00 ICD-9: V70.0 05/22/2017 Calculus of kidney ICD-10: N20.0 ICD-9: 592.0 11/23/2016 Mild intermittent asthma with (acute) exacerbation ICD-10: J45.21 ICD-9: 493.12 11/23/2016 Nausea ICD-10: R11.0 ICD-9: 787.02 11/10/2016 Other benign neoplasm of skin of unspecified part of face ICD-10: D23.30 ICD-9: 216.3 09/14/2016 Allergic rhinitis due to pollen ICD-10: J30.1 ICD-9: 477.0 09/14/2016 ESSENTIAL HYPERTENSION ICD-9: 401.9 03/24 Skin change ICD-9: 782.9 03/24/2015 CHRONIC PAIN SYNDROME ICD-9: 338.4 2014 Reason For Visit Reason For Visit Effective [...] Code Item Item Code Result Date Carmen [id number] CARMEN (GAY) SCREEN NONE DETECTED 07/27/2018 Sed Rate Ord21 ESR 29 mm/hr 07/26/2018 Uric Acid Ord77 Uric A 5.2 mg/dL 07/25/2018 Cbc With Differential Ord2 WBC 10.44 K/ul 07/25/2018 Cbc With Differential Ord2 RBC 4.31 M/ul 07/25/2018 Cbc With Differential Ord2 HGB 12.8 g/dl 07/25/2018 Cbc With Differential Ord2 HCT 39.0 % 07/25/2018 Cbc With Differential Ord2 Neut% 70.5 % 07/25/2018 Cbc With Differential Ord2 MCV 90.5 fl 07/25/2018 Cbc With Differential Ord2 Lymph% 14.6 % 07/25/2018 Cbc With Differential Ord2 Aurora% 11.0 % 07/25/2018 Cbc With Differential Ord2 MCH 29.7 pg 07/25/2018 Cbc With Differential Ord2 Eos% 3.6 % 07/25/2018 Cbc With Differential Ord2 MCHC 32.8 pg 07/25/2018 Cbc With Differential Ord2 PLT 187 K/ul 07/25/2018 Cbc With Differential Ord2 Baso% 0.3 % 07/25/2018 Cbc With Differential Ord2 RDW 14.7 % 07/25/2018 Cbc With Differential Ord2 Neut ABS# 7.36 K/ul 07/25/2018 Cbc With Differential Ord2 Lymph ABS# 1.52 K/ul 07/25/2018 Cbc With Differential Ord2 [place] ABS# 1.2 K/ul 07/25/2018 Cbc With Differential Ord2 Eos ABS# 0.4 K/ul 07/25/2018 Cbc With Differential Ord2 Baso ABS# 0.0 K/ul 07/25/2018 Comp Metabolic Yws278 NA 137 mEq/L 07/25/2018 Comp Metabolic Sbp893 K 3.9 mEq/L 07/25/2018 Comp Metabolic Srr018 CL 100 mEq/L 07/25/2018 Comp Metabolic Brb067 CO2 28.0 mEq/L 07/25/2018 Comp Metabolic Dfe483 ANION GAP 13 07/25/2018 Comp Metabolic Nyv884 GLUCOSE 93 mg/dL 07/25/2018 Comp Metabolic Ifv043 Creat 0.8 mg/dL 07/25/2018 Comp Metabolic Wcn045 eGFR 102 ml/min/1.73m2 07/25/2018 Comp Metabolic Uoq616 BUN 26 mg/dL 07/25/2018 Comp Metabolic Hil250 B/C Ratio 33.3 Ratio 07/25/2018 Comp Metabolic Xfh604 CALCIUM 9.5 mg/dL 07/25/2018 Comp Metabolic Ypx893 ALK PHOS 47 U/L 07/25/2018 Comp Metabolic Wkh476 AST(SGOT) 22 U/L 07/25/2018 Comp Metabolic Yrk626 ALT(SGPT) 16 U/L 07/25/2018 Comp Metabolic Qkd300 BILI T 0.6 mg/dL 07/25/2018 Comp Metabolic Jfa298 ALBUMIN 3.8 g/dL 07/25/2018 Comp Metabolic Ded025 TPRO 5.9 g/dL 07/25/2018 Comp Metabolic Sti482 GLOB 2.2 g/dL 07/25/2018 Comp Metabolic Zik731 A/G Ratio 1.7 Ratio 07/25/2018 Comp Metabolic Wjy168 Osmo 278 mOsmo 07/25/2018 Ra Factor Dae399 RA FACTOR <10 IU/ml 07/25/2018 C-Reactive Protein Qnt Crqnt CRP 5.8 mg/dl 07/25/2018 Cbc With Differential Ord2 WBC 7.64 K/ul [...] 29.4 pg 11/19/2017 Cbc With Differential Ord2 Aurora% 13.9 % 11/19/2017 Cbc With Differential Ord2 MCHC 33.3 pg 11/19/2017 Cbc With Differential Ord2 Eos% 2.6 % 11/19/2017 Cbc With Differential Ord2 Baso% 0.8 % 11/19/2017 Cbc With Differential Ord2 PLT 202 K/ul 11/19/2017 Cbc With Differential Ord2 Neut ABS# 4.25 K/ul 11/19/2017 Cbc With Differential Ord2 RDW 14.8 % 11/19/2017 Cbc With Differential Ord2 Lymph ABS# 2.07 K/ul 11/19/2017 Cbc With Differential Ord2 [place] ABS# 1.1 K/ul 11/19/2017 Cbc With Differential Ord2 Eos ABS# 0.2 K/ul 11/19/2017 Cbc With Differential Ord2 Baso ABS# 0.1 K/ul 11/19/2017 Tsh Ord6 TSH (3rd IS) 1.01 uIU/mL 11/19/2017 Comp Metabolic Kew243 NA 140 mEq/L 11/19/2017 Comp Metabolic Lkn446 K 3.8 mEq/L 11/19/2017 Comp Metabolic Vns069 CL 105 mEq/L 11/19/2017 Comp Metabolic Uju369 CO2 30.0 mEq/L 11/19/2017 Comp Metabolic Gxb476 ANION GAP 9 11/19/2017 Comp Metabolic Yyb244 GLUCOSE 91 mg/dL 11/19/2017 Comp Metabolic Sue540 Creat 0.6 mg/dL 11/19/2017 Comp Metabolic Tmd364 eGFR 133 ml/min/1.73m2 11/19/2017 Comp Metabolic Nng143 BUN 16 mg/dL 11/19/2017 Comp Metabolic Unf017 B/C Ratio 25.8 Ratio 11/19/2017 Comp Metabolic Uey438 CALCIUM 9.6 mg/dL 11/19/2017 Comp Metabolic Bwp657 ALK PHOS 46 U/L 11/19/2017 Comp Metabolic Cux723 AST(SGOT) 17 U/L 11/19/2017 Comp Metabolic Olo066 ALT(SGPT) 13 U/L 11/19/2017 Comp Metabolic Wxv770 BILI T 0.4 mg/dL 11/19/2017 Comp Metabolic Wda280 ALBUMIN 3.6 g/dL 11/19/2017 Comp Metabolic Uoq087 TPRO 5.9 g/dL 11/19/2017 Comp Metabolic Spf954 GLOB 2.3 g/dL 11/19/2017 Comp Metabolic Zdn121 A/G Ratio 1.6 Ratio 11/19/2017 Comp Metabolic Ksc849 Osmo 280 mOsmo 11/19/2017 Lipid Ord30 CHOL 182 mg/dL 11/19/2017 Lipid Ord30 HDL 50.0 mg/dl 11/19/2017 Lipid Ord30 TRIG 138 mg/dL 11/19/2017 Lipid Ord30 LDL 104 mg/dL 11/19/2017 Lipid Ord30 C/HDL 3.6 Ratio 11/19/2017 Uric Acid Ord77 Uric A 5.5 mg/dL 08/08/2017 Urine Culture Ucult Preliminary NO Growth Day 1 11/27/2016 Urine Culture Ucult Complete NO Growth Day 2 11/27/2016 Vitamin D 25 Oh [id number] VITAMIN D, 25 HYDROXY 28.69 ng/mL Total Psa Ord10 PSA 0.03 ng/mL 07/27/2016 Cbc With Differential Ord2 WBC 8.35 K/ul 07/27/2016 Cbc With Differential Ord2 RBC 4.71 M/ul 07/27/2016 Cbc With Differential Ord2 HGB 13.8 g/dl 07/27/2016 Cbc With Differential Ord2 HCT 41.3 % 07/27/2016 Cbc With Differential Ord2 Neut% 67.3 % 07/27/2016 Cbc With Differential Ord2 MCV 87.7 fl 07/27/2016 Cbc With Differential Ord2 Lymph% 21.4 % 07/27/2016 Cbc With Differential Ord2 MCH 29.3 pg 07/27/2016 Cbc With Differential Ord2 Aurora% 10.1 % 07/27/2016 Cbc With Differential Ord2 MCHC 33.4 pg 07/27/2016 Cbc With Differential Ord2 Eos% 0.8 % 07/27/2016 Cbc With Differential Ord2 PLT 187 K/ul 07/27/2016 Cbc With Differential Ord2 Baso% 0.4 % 07/27/2016 Cbc With Differential Ord2 RDW 14.9 % 07/27/2016 Cbc With Differential Ord2 Neut ABS# 5.62 K/ul 07/27/2016 Cbc With Differential Ord2 Lymph ABS# 1.79 K/ul 07/27/2016 Cbc With Differential Ord2 [place] ABS# 0.8 K/ul 07/27/2016 Cbc With Differential Ord2 Eos ABS# 0.1 K/ul 07/27/2016 Cbc With Differential Ord2 Baso ABS# 0.0 K/ul 07/27/2016 Tsh Ord6 hTSH II 1.21 uIU/mL 07/27/2016 Lipid Ord30 CHOL 184 mg/dL 07/27/2016 Lipid Ord30 HDL 53.0 mg/dl 07/27/2016 Lipid Ord30 TRIG 106 mg/dL 07/27/2016 Lipid Ord30 LDL 110 mg/dL 07/27/2016 Lipid Ord30 C/HDL 3.5 Ratio 07/27/2016 Comp Metabolic Mgt351 NA 138 mEq/L 07/27/2016 Comp Metabolic Jzg039 K 4.1 mEq/L 07/27/2016 Comp Metabolic Amg781 CL 106 mEq/L 07/27/2016 Comp Metabolic Nza615 CO2 26.0 mEq/L 07/27/2016 Comp Metabolic Tvu126 ANION GAP 10 07/27/2016 Comp Metabolic Uqb517 GLUCOSE 102 mg/dL 07/27/2016 Comp Metabolic Bex085 Creat 0.7 mg/dL 07/27/2016 Comp Metabolic Ffm941 eGFR 125 ml/min/1.73m2 07/27/2016 Comp Metabolic Iok721 BUN 24 mg/dL 07/27/2016 Comp Metabolic Dyu162 B/C Ratio 36.4 Ratio 07/27/2016 Comp Metabolic Rpu284 CALCIUM 10.2 mg/dL 07/27/2016 Comp Metabolic Qgb152 ALK PHOS 41 U/L 07/27/2016 Comp Metabolic Did573 AST(SGOT) 17 U/L 07/27/2016 Comp Metabolic Fvp232 ALT(SGPT) 14 U/L 07/27/2016 Comp Metabolic Fwd278 BILI T 0.5 mg/dL 07/27/2016 Comp Metabolic Ott754 ALBUMIN 3.9 g/dL 07/27/2016 Comp Metabolic Miv515 TPRO 6.3 g/dL 07/27/2016 Comp Metabolic Xoj030 GLOB 2.4 g/dL 07/27/2016 Comp Metabolic Wvk808 A/G Ratio 1.6 Ratio 07/27/2016 Comp Metabolic Kzn084 Osmo 280 mOsmo 07/27/2016 Comp Metabolic Fvh543 NA 137 mEq/L 07/26/2015 Comp Metabolic Mgf117 K 3.7 mEq/L 07/26/2015 Comp Metabolic Zdn867 CL 103 mEq/L 07/26/2015 Comp Metabolic Mjb283 CO2 26.0 mEq/L 07/26/2015 Comp Metabolic Soe352 ANION GAP 12 07/26/2015 Comp Metabolic Alf565 GLUCOSE 99 mg/dL 07/26/2015 Comp Metabolic Uii268 Creat 0.8 mg/dL 07/26/2015 Comp Metabolic Fxp847 eGFR 103 ml/min/1.73m2 07/26/2015 Comp Metabolic Jjz726 BUN 22 mg/dL 07/26/2015 Comp Metabolic Yrz743 B/C Ratio 28.2 Ratio 07/26/2015 Comp Metabolic Ldh551 CALCIUM 9.7 mg/dL 07/26/2015 Comp Metabolic Gmv425 ALK PHOS 40 U/L 07/26/2015 Comp Metabolic Fkf436 AST(SGOT) 26 U/L 07/26/2015 Comp Metabolic Lji039 ALT(SGPT) 20 U/L 07/26/2015 Comp Metabolic Xmh895 BILI T 0.5 mg/dL 07/26/2015 Comp Metabolic Ktk312 ALBUMIN 3.9 g/dL 07/26/2015 Comp Metabolic Okg357 TPRO 6.4 g/dL 07/26/2015 Comp Metabolic Urd026 GLOB 2.5 g/dL 07/26/2015 Comp Metabolic Nyk448 A/G Ratio 1.6 Ratio 07/26/2015 Comp Metabolic Ndr497 Osmo 277 mOsmo 07/26/2015 Tsh Ord6 hTSH II 1.27 uIU/mL 07/26/2015 Total Psa Ord10 PSA 0.01 ng/mL 07/26/2015 Vitamin D 25 Oh Rbx5882 VITAMIN D, 25 HYDROXY 31.47 ng/mL Lipid Ord30 CHOL 187 mg/dL 07/26/2015 Lipid Ord30 HDL 48.0 mg/dl 07/26/2015 Lipid Ord30 TRIG 151 mg/dL 07/26/2015 Lipid Ord30 LDL 109 mg/dL 07/26/2015 Lipid Ord30 C/HDL 3.9 Ratio 07/26/2015 Cbc With Differential Ord2 WBC 7.2 [...] With Differential Ord2 RDW 15.6 % 07/26/2015 Review of Systems System Result Effective Dates [...] dentition 05/22/2017 None Full Exam - General 1995 Ears/Nose/Throat [...] lips 11/23/2016 None Full Exam - General 1995 [...] General 1995 Ears/Nose/Throat lips/teeth/gingiva Overall: benign lips 11/20/2016 None [...] CPT -4: G0439 08/05/2018 DRAIN/INJECT JOINT/BURSA CPT-4: 88430 03/18/2018 TRIAMCINOLONE ACET INJ NOS CPT-4: J3301 03/18/2018 THER/PROPH/DIAG INJ SC/IM CPT-4: 54883 02/21/2018 TRIAMCINOLONE ACET INJ NOS CPT-4: J3301 02/21/2018 PPPS, SUBSEQ VISIT CPT -4: G0439 05/22/2017 TRIAMCINOLONE ACET INJ NOS CPT-4: J3301 09/14/2016 TRIAMCINOLONE ACET INJ NOS CPT-4: J3301 07/24/2016 THER/PROPH/DIAG INJ SC/IM CPT-4: 76186 07/24/2016 TRIAMCINOLONE ACET INJ NOS CPT-4: J3301 01/24/2016 TRIAMCINOLONE ACET INJ NOS CPT-4: J3301 07/26/2015 THER/PROPH/DIAG INJ SC/IM CPT-4: 80575 07/26/2015 Vital Signs Date Vital 08/26/2018 Blood Pressure 1: 166/84 Code : 8480-6 Heart Rate 1: 80 bpm Height: 6'4" SpO2: 98% Temperature: 36.7 (C) / 98.1 (F) Weight: 08/05/2018 Blood Pressure 1: 118/64 Code : 8480-6 BMI: 26.2 Code : 31844-8 Heart Rate 1 : 66 bpm Height: 6'4" SpO2: 97% Waist Measure (cm): 81 cm Weight: 215 lbs 07/25/2018 Blood Pressure 1: 128/78 Code : 8480-6 BMI: 26.2 Code : 03623-5 Heart Rate 1 : 68 bpm Height: 6'4" SpO2: 95% Weight: 215 lbs 07/22/2018 Blood Pressure 1: 142/78 Code : 8480-6 BMI: 26.7 Code : 60135-3 Heart Rate 1 : 64 bpm Height: 6'4" SpO2: 99% Weight: 219 lbs 03/18/2018 Blood Pressure 1: 136/84 Code : 8480-6 BMI: 26.5 Code : 21416-6 Heart Rate 1 : 79 bpm Height: 6'4" SpO2: 99% Weight: 218 lbs 11/27/2017 Blood Pressure 1: 132/64 Code : 8480-6 BMI: 27.8 Code : 72384-6 Heart Rate 1 : 41 bpm Height: 6'4" SpO2: 97% Weight: 228 lbs 11/19/2017 Blood Pressure 1: 148/76 Code : 8480-6 Blood Pressure 1: 140/88 Code: 8480-6 BMI: 27.3 Code: 00527-9 Heart Rate 1: 58 bpm Height: 6'4" SpO2: 98% Weight: 224 lbs 08/08/2017 Blood Pressure 1: 130/80 Code : 8480-6 BMI: 26.5 Code : 33643-3 Heart Rate 1 : 71 bpm Height: 6'4" SpO2: 98% Weight: 218 lbs 05/22/2017 Blood Pressure 1: 142/78 Code : 8480-6 BMI: 28.0 Code : 79920-5 Heart Rate 1 : 77 bpm Height: 6'4" SpO2: 94% Waist Measure (cm): 91 cm Weight: 230 lbs 05/21/2017 Blood Pressure 1: 144/72 Code : 8480-6 BMI: 28.1 Code : 58965-8 Heart Rate 1 : 74 bpm Height: 6'4" SpO2: 95% Weight: 230 lbs 8 oz 11/23/2016 Blood Pressure 1: 136/74 Code : 8480-6 BMI: 29.9 Code : 57148-5 Heart Rate 1 : 59 bpm Height: 6'4" SpO2: 94% Weight: 246 lbs 11/20/2016 Blood Pressure 1: 130/80 Code : 8480-6 BMI: 29.9 Code : 96453-1 Heart Rate 1 : 75 bpm Height: 6'4" SpO2: 98% Weight: 246 lbs 11/10/2016 Blood Pressure 1: 140/82 Code : 8480-6 BMI: 29.7 Code : 88220-8 Heart Rate 1 : 64 bpm Height: 6'4" SpO2: 94% Weight: 244 lbs 09/14/2016 Blood Pressure 1: 130/82 Code : 8480-6 BMI: 27.4 Code : 84822-1 Heart Rate 1 : 74 bpm Height: 6'4" SpO2: 96% Weight: 225 lbs 07/24/2016 Blood Pressure 1: 128/78 Code : 8480-6 BMI: 27.4 Code : 12799-3 Heart Rate 1 : 78 bpm Height: 6'4" SpO2: 94% Weight: 225 lbs 01/24/2016 Blood Pressure 1: 124/88 Code : 8480-6 BMI: 29.5 Code : 22331-5 Heart Rate 1 : 68 bpm Height: 6'4" SpO2: 98% Weight: 242 lbs 07/26/2015 Blood Pressure 1: 138/82 Code : 8480-6 Blood Pressure 1: 150/82 Code: 8480-6 BMI: 29.9 Code: 51238-2 Heart Rate 1: 68 bpm Height: 6'4" SpO2: 94% Weight: 246 lbs 03/24/2015 Blood Pressure 1: 114/84 Code : 8480-6 BMI: 29.8 Code : 27184-9 Heart Rate 1 : 67 bpm Height: [...] bleeding[ICD10: K57.20] [facility] CPT-4: 46279 08/26/2018 [id number] EST. PATIENT, LEVEL IV Diagnosis: Pain in left wrist[ICD10: M25.532] Diagnosis: Other malaise[ICD10: R53.81] Diagnosis: Other fatigue[ICD10: R53.83] [facility] CPT-4 : 20940 07/25/2018 [id number]) 27976 EST. PATIENT, LEVEL IV Diagnosis: Essential (primary) hypertension[ICD10: I10] Diagnosis: Chronic pain syndrome[ICD10: G89.4] Diagnosis: Low back pain[ICD10: M54.5] [facility] CPT- 4: 23214 07/22/2018 [id number]) 34496 EST. PATIENT, LEVEL III Diagnosis: Sacroiliitis, not elsewhere classified[ICD10: M46.1] Diagnosis: Spinal instabilities, sacral and sacrococcygeal region[ICD10: M53.2X8 ] Diagnosis: Essential (primary) hypertension[ICD10: I10] Diagnosis: Chronic pain syndrome[ICD10: G89.4] Beverly Hussein MD, [facility] CPT-4: 08718 03/18/2018 15911 EST. PATIENT, LEVEL III Diagnosis: Pain in right knee[ICD10: M25.561] Lizz Hussein MD, [facility] CPT-4: 26944 11/27/2017 ([id number]) 87307 EST. PATIENT, LEVEL IV Diagnosis: Essential (primary) hypertension[ICD10: I10] Diagnosis: Chronic pain syndrome[ICD10: G89.4] Diagnosis: Vitamin D deficiency, unspecified[ICD10: E55.9] Beverly Hussein MD, [facility] CPT-4: 77714 11/19/2017 ([id number]) 21634 EST. PATIENT, LEVEL III Diagnosis: Olecranon bursitis, right elbow[ICD10: M70.21] Beverly Hussein MD, [facility] CPT-4: 07141 08/08/2017 ([id number]) 74622 EST. PATIENT, LEVEL IV Diagnosis: Essential (primary) hypertension[ICD10: I10] Diagnosis: Low back pain[ICD10: M54.5] Beverly Hussein MD, [facility] CPT- 4: 55998 05/21/2017 61916 EST. PATIENT, LEVEL III Diagnosis: Calculus of kidney[ICD10: N20.0] Lizz Hussein MD, [facility] CPT- 4: 15277 11/23/2016 ([id number]) 43644 EST. PATIENT, LEVEL III Diagnosis: Essential (primary) hypertension[ICD10: I10] Beverly Hussein MD, [facility] CPT-4: 03412 11/20/2016 46723 EST. PATIENT, LEVEL III Diagnosis: Nausea[ICD10: R11.0] Lizz Hussein MD, [facility] CPT-4: 25475 11/10/2016 ([id number]) 57107 EST. PATIENT, LEVEL III Diagnosis: Allergic rhinitis due to pollen[ICD10: J30.1] Diagnosis: Other benign neoplasm of skin of unspecified part of face[ICD10: D23.30] [facility] CPT-4: 73930 ([id number]) 11370 EST. PATIENT, LEVEL IV Diagnosis: Essential (primary) hypertension[ICD10: I10] Diagnosis: Vitamin D deficiency, unspecified[ICD10: E55.9] Diagnosis: Low back pain[ICD10: M54.5] Diagnosis: Mild intermittent asthma with (acute) exacerbation[ICD10: J45.21] [facility] CPT-4: 37828 07/24/2016 ([id number]) 82976 EST. PATIENT, LEVEL IV Diagnosis: Essential (primary) hypertension[ICD10: I10] Diagnosis: Allergic rhinitis due to pollen[ICD10: J30.1] Diagnosis: Low back pain[ICD10: M54.5] [facility] CPT-4: 85600 01/24/2016 ([id number]) 78963 EST. PATIENT, LEVEL IV Diagnosis: Essential (primary) hypertension[ICD10: I10] Diagnosis: Vitamin D deficiency, unspecified[ICD10: E55.9] Diagnosis: Chronic pain syndrome[ICD10: G89.4] Diagnosis: Allergic rhinitis, unspecified[ICD10: J30.9] [facility] CPT-4: 52380 07/26/2015 ([id number]) OFFICE VISIT, NEW - LEVEL 4 Diagnosis: ESSENTIAL HYPERTENSION[ICD9: 401.9] Diagnosis: CHRONIC PAIN SYNDROME[ICD9: 338.4] Diagnosis: Skin change[ICD9: 782.9] [facility] CPT-4: 04562 03/24/2015 Plan of Care Planned Activity Notes Codes Status Date Appointment: Kelsy Hsu WPtel: [address] [place], [place] [phone] (15 min) Moderate 08/27/2018 Visit Plan: Diverticulitis [...] today. 08/26/2018 Appointment: Lizz Wilks WPtel: [phone] [facility] (30 min) Complex 08/26/2018 Patient Education: Patient Medication Summary Completed 08/26/2018 Appointment: Kelsy Hsu WPtel: [phone] [phone] [place] (15 min) Moderate 08/19/2018 Appointment: Lizz Wilks WPtel: [phone] [facility] (15 min) Moderate 08/07/2018 Visit Plan: Medicare [...] care surrogate. 08/05/2018 Appointment: Lizz Wilks WPtel: [phone] [facility] [place] [facility] - Annual Wellness Visit 08/05/2018 Patient [...] concerns. 07/25/2018 [phone] [place] (15 min) Moderate 07/25/2018 Patient Education: Patient [...] today - 07/22/2018 Appointment: Beverly Hussein WPtel: [phone] [facility] [place] (15 min) Moderate 07/22/2018 Patient Education: Patient [...] thereafter. 03/18/2018 Appointment: Beverly Hussein WPtel: [phone] [facility] [place] (15 min) Moderate 03/18/2018 Patient Education: [...] improve. 11/27/2017 App[facility]ment[phone] ([facility] min) Complex 11/27/2017 Patient Education: Patient Medication Summary Completed 11/27/2017 Care Plan: X-RAY EXAM OF KNEE 3 LOINC : 68063-1 Pending 11/27/2017 Visit Plan: Hypertension -usually pt [...] medications. 11/19/2017 App[facility]ment: [phone] (15 min) Moderate 11/19/2017 Patient Education: Patient [...] care surrogate. 05/22/2017 Appointment: [phone] [facility] - Annual Wellness Visit 05/22/2017 Patient [...] into Yoga. 05/21/2017 Appointment: Beverly Hussein WPtel: [facility] (15 min) Moderate 05/21/2017 Patient Education: Patient Medication Summary Completed 05/21/2017 Patient Education: Hypertension Completed 05/21/2017 Care Plan: X-RAY EXAM OF ABDOMEN LOINC : 21349-4 Pending 12/17/2016 Visit Plan: Left flank pain - KUB shows renal caliculi - will refer to Dr. Robledo. Pt is to notify clinic with any changes or concerns. 11/23/2016 Appointment: [phone] (15 min) Moderate 11/23/2016 Patient Education: Patient [...] right cheek 11/20/2016 Appointment: Beverly Hussein WPtel: [address] [place], [place] [phone] (15 min) Moderate 11/20/2016 Patient Education: Patient [...] esophageal reflux. 11/10/2016 Appointment: Lizz Wilks WPtel: [address] [place], [place] [phone] (30 min) Complex 11/10/2016 Patient Education: Patient Medication Summary Completed 11/10/2016 Referral: Poncho Mock [address] Referral Completed 11/03/2016 Visit Plan: Cyst-right cheek-refer to Dr Mock for removal Uxxztuoba-qbmwfa-gcweovpgi symptoms-kenalog injection today in the office- samples of advair provided and instructed on use. 09/14/2016 Appointment: Kelsy Hsu WPtel: [address] [place], [place] [phone] (30 min) Complex 09/14/2016 Patient Education: Patient Medication Summary Completed 09/14/2016 Care Plan: Referral Order SNOMED-CT : [id number] Pending 09/14/2016 Visit Plan: Hypertension - well [...] prn use 07/24/2016 Appointment: Kelsy Hsu WPtel: [phone] (15 min) Moderate 07/24/2016 Patient Education: Patient [...] spray. Kenalog injection today in the office Urqob-Abpjwm-odgetl to symbicort Low back pain-recommend stretches for [...] Patient Education: Hypertension Completed 03/24/2015 [facility] [facility] Requested Instructions Comment . [...] to twice daily Low back-hip pain-refer to [facility] for physical therapy-refill hydrocodone for prn use [...] spray. Kenalog injection today in the office Nzrer-Vhoauf-agfpbr to symbicort Low back pain-recommend stretches for [...] Cyst-right cheek-refer to Dr Mock for removal Ujitnziug-pdssvh-rcryyzaij symptoms-kenalog injection today in the office- samples [...]
--- OUTSIDE RECORDS SUMMARY | 2018-10-09 14:28 | XMS REPORT | CCD ---
Author Author [facility] Organization [facility] Address [address] [place] [address] Phone Care Team Providers Care Title I Paraprofessional Name Role Phone PP Unavailable CCM Unavailable Summary Purpose Interface Exchange Insurance Providers Payer name Policy type / Coverage type Covered democrat ID Effective Begin Date Effective End Date WPS Medicare Part B Medicare Part B [id number] 2015 Unknown AARP Medicare Part B [id number] 2015 Unknown Family history Mother Diagnosis Age At Onset Dementia Unknown Father Diagnosis Age At Onset lung cancer Unknown Social History Social History Element Codes Description Effective Dates Marital status Unknown Michelle 03/24/2015 Number of children Unknown 3 03/24/2015 Employment Unknown Retired 03/24/[address]: 738674704 Never smoker 03/24/[address]: 423251846 Never drinks alcohol 03/24/2015 Allergies, Adverse Reactions, [...] Start Date Stop Date Status Fill Instructions Bactrim DS 800 mg-160 mg tablet RxNorm: 406299 1 Tablet(s) PO BID 08/26/2018 09/04/2018 Active Bactrim DS 800 mg-160 mg tablet RxNorm: 369503 1 Tablet(s) PO BID 08/26/2018 08/25/2018 Inactive gabapentin 100 mg capsule RxNorm: 571589 1 Capsule(s) PO TID , if not having improvement in sam after 5 day, may increase up to two pills three times daily 08/22/2018 11/19/2018 Active morphine ER 15 mg tablet,extended release RxNorm: 339892 1 Tablet(s) PO BID 08/22/2018 09/20/2018 Active Zofran ODT 4 mg disintegrating tablet RxNorm: 387690 1 Tablet(s) PO TID 07/25/2018 07/29/2018 Inactive prednisone 20 mg tablet RxNorm: 386379 Tablet(s) PO 07/25/2018 08/21/2018 Inactive 60 ,60,40,40,20,20 morphine ER 15 mg tablet,extended release RxNorm: 408597 1 Tablet(s) PO BID 07/22/2018 08/20/2018 Inactive gabapentin 100 mg capsule RxNorm: 001243 1 Capsule(s) PO TID , if not having improvement in sam after 5 day, may increase up to two pills three times daily 07/22/2018 08/20/2018 Inactive ProAir HFA 90 mcg/actuation aerosol inhaler RxNorm: 043387 USE 1 TO 2 PUFFS EVERY 4 TO 6 HOURS NEEDED 07/02/20182018 Active 3 * 8.5 GM=25.5 GM Total - Ref : [id number] hydrocodone 10 mg-acetaminophen 325 mg tablet RxNorm: 248182 1-2 Tablet(s) PO Q6 as needed for pain 06/20/2018 07/04/2018 Inactive hydrocodone 10 mg-acetaminophen 325 mg tablet RxNorm: 083120 1-2 Tablet(s) PO Q6 as needed for pain 05/20/2018 06/03/2018 Inactive hydrocodone 10 mg-acetaminophen 325 mg tablet RxNorm: 838282 1-2 Tablet(s) PO Q6 as needed for pain 04/17/2018 05/01/2018 Inactive Kenalog 40 mg/mL suspension for injection RxNorm: 4833014 1.5 Milliliter(s) Inj 03/18/2018 03/18/2018 Inactive hydrocodone 10 mg-acetaminophen 325 mg tablet RxNorm: 299391 1-2 Tablet(s) PO Q6 as needed for pain 03/18/2018 04/01/2018 Inactive prednisone 20 mg tablet RxNorm: 741242 1 Tablet(s) PO daily 03/22/2018 Inactive prednisone 10 mg tablet RxNorm: 174683 TAKE 1 TABLET BY MOUTH DAILY 03/11/2018 06/03/2019 Active - Ref: [id number] Kenalog 40 mg/mL suspension for injection RxNorm: 8678701 1 Milliliter(s) Inj 02/21/2018 02/21/2018 Inactive hydrocodone 10 mg-acetaminophen 325 mg tablet RxNorm: 592531 1-2 Tablet(s) PO Q6 as needed for pain 02/20/2018 03/06/2018 Inactive hydrocodone 10 mg-acetaminophen 325 mg tablet RxNorm: 653642 1-2 Tablet(s) PO Q6 as needed for pain 01/23/2018 02/06/2018 Inactive hydrocodone 10 mg-acetaminophen 325 mg tablet RxNorm: 253283 1-2 Tablet(s) PO Q6 as needed for pain 12/25/2017 01/08/2018 Inactive doxycycline hyclate 100 mg capsule RxNorm: 5599084 1 Capsule(s) PO BID 11/29/2017 12/08/2017 Inactive doxycycline hyclate 100 mg capsule RxNorm: 5531320 1 Capsule(s) PO BID 11/29/2017 11/28/2017 Inactive hydrocodone 10 mg-acetaminophen 325 mg tablet RxNorm: 156053 1-2 Tablet(s) PO Q6 as needed for pain 11/01/2017 11/15/2017 Inactive hydrocodone 10 mg-acetaminophen 325 mg tablet RxNorm: 443972 1-2 Tablet(s) PO Q6 as needed for pain 10/03/2017 10/17/2017 Inactive ProAir HFA 90 mcg/actuation aerosol inhaler RxNorm: 493035 USE 1 TO 2 PUFFS EVERY 4 TO 6 HOURS NEEDED 09/28/20172017 Inactive 3 * 8.5 GM=25.5 GM Total - Ref: [id number] hydrocodone 10 mg-acetaminophen 325 mg tablet RxNorm: 584132 1-2 Tablet(s) PO Q6 as needed for pain 08/30/2017 09/13/2017 Inactive Benicar 20 mg tablet RxNorm: 119985 Tablet(s) TAKE 1 TABLET BY MOUTH DAILY 08/20/2017 08/14/2018 Inactive Benicar 20 mg tablet RxNorm: 750382 TAKE 1 TABLET BY MOUTH DAILY 08/15/2017 08/19/2017 Inactive - Ref: [id number] azithromycin 250 mg tablet RxNorm: 352464 1 Tablet(s) PO UD two tabs on day #1, the one tab daily x 4 doses 08/07/2017 Inactive hydrocodone 10 mg-acetaminophen 325 mg tablet RxNorm: 862024 1-2 Tablet(s) PO Q6 as needed for pain 07/31/2017 08/14/2017 Inactive prednisone 10 mg tablet RxNorm: 814963 TAKE 1 TABLET BY MOUTH DAILY 07/30/2017 01/25/2018 Inactive - Ref: [id number] hydrocodone 10 mg-acetaminophen 325 mg tablet RxNorm: 796267 1-2 Tablet(s) PO Q6 as needed for pain 06/29/2017 07/13/2017 Inactive ProAir HFA 90 mcg/actuation aerosol inhaler RxNorm: 439589 INHALE ONE TO TWO PUFFS BY MOUTH EVERY 4 TO 6 HOURS NEEDED 06/04/2017 07/21/2017 Inactive hydrocodone 10 mg-acetaminophen 325 mg tablet RxNorm: 155854 1-2 1 Tablet(s) PO Q6 as needed for pain 05/22/20172016 Inactive hydrocodone 10 mg-acetaminophen 325 mg tablet RxNorm: 369162 1-2 1 Tablet(s) PO Q6 as needed for pain 04/30/20172016 Inactive hydrocodone 10 mg-acetaminophen 325 mg tablet RxNorm: 061237 1-2 Tablet(s) PO Q6 as needed for pain 03/30/2017 04/13/2017 Inactive Benicar 20 mg tablet RxNorm: 530998 Take 1 tablet by mouth daily 03/22/2017 08/14/2017 Inactive - First Attempt Ref: [id number] hydrocodone 10 mg-acetaminophen 325 mg tablet RxNorm: 088909 1-2 Tablet(s) PO Q6 as needed for pain 03/01/2017 03/15/2017 Inactive Advair Diskus 250 mcg-50 mcg/dose powder for inhalation RxNorm: 3276146 1 INH daily 02/09/2017 02/03/2018 Inactive prednisone 10 mg tablet RxNorm: 276087 Take 1 tablet by mouth daily 02/01/2017 07/29/2017 Inactive - Ref: [id number] hydrocodone 10 mg-acetaminophen 325 mg tablet RxNorm: 310010 1-2 Tablet(s) PO Q6 as needed for pain 02/01/2017 02/15/2017 Inactive hydrocodone 10 mg-acetaminophen 325 mg tablet RxNorm: 342277 1-2 Tablet(s) PO Q6 as needed for pain 01/03/2017 01/17/2017 Inactive hydrocodone 10 mg-acetaminophen 325 mg tablet RxNorm: 601284 1-2 Tablet(s) PO Q6 as needed for pain 12/11/2016 12/25/2016 Inactive prednisone 10 mg tablet RxNorm: 948696 1 Tablet(s) 1 Tablet(s) PO daily 11/10/2016 01/31/2017 Inactive Zofran 4 mg tablet RxNorm: 901625 1 Tablet(s) PO TID 201611/14/2016 Inactive hydrocodone 10 mg-acetaminophen 325 mg tablet RxNorm: 974733 1-2 Tablet(s) PO Q6 as needed for pain 10/31/2016 11/14/2016 Inactive prednisone 10 mg tablet RxNorm: 323898 Take 1 tablet by mouth daily 10/23/2016 03/17/2018 Inactive - Ref: [id number] Advair Diskus 250 mcg-50 mcg/dose powder for inhalation RxNorm: 5556619 1 INH daily 10/13/2016 01/10/2017 Inactive Kenalog 40 mg/mL suspension for injection RxNorm: 6018465 Milliliter(s) Inj 09/14/2016 09/14/2016 Inactive hydrocodone 10 mg-acetaminophen 325 mg tablet RxNorm: 806502 1-2 Tablet(s) PO Q6 as needed for pain 09/11/2016 09/25/2016 Inactive Benicar 20 mg tablet RxNorm: 241632 Take 1 tablet by mouth daily 09/04/2016 03/02/2017 Inactive - First Attempt Ref: [id number] prednisone 10 mg tablet RxNorm: 069169 1 Tablet(s) 1 Tablet(s) PO daily 08/28/2016 10/22/2016 Inactive Vitamin D2 50,000 unit capsule RxNorm: 376207 1 Capsule(s) PO QW 07/28/2016 05/20/2017 Inactive Kenalog 40 mg/mL suspension for injection RxNorm: 2438002 1.5 Milliliter(s) Inj 07/24/2016 07/24/2016 Inactive hydrocodone 10 mg-acetaminophen 325 mg tablet RxNorm: 318397 1-2 Tablet(s) PO Q6 as needed 07/24/2016 09/10/2016 Inactive hydrocodone 10 mg-acetaminophen 325 mg tablet RxNorm: 073688 1-2 Tablet(s) PO Q6 as needed 06/21/2016 07/05/2016 Inactive ProAir HFA 90 mcg/actuation aerosol inhaler RxNorm: 467857 INHALE ONE TO TWO PUFFS BY MOUTH EVERY 4 TO 6 HOURS NEEDED 06/14/2016 07/17/2016 Inactive prednisone 10 mg tablet RxNorm: 758934 Tablet(s) 1 Tablet(s) PO daily 06/14/2016 08/27/2016 Inactive prednisone 10 mg tablet RxNorm: 390645 1 Tablet(s) PO daily 06/13/2016 Inactive ProAir HFA 90 mcg/actuation aerosol inhaler RxNorm: 640076 INHALE ONE TO TWO PUFFS BY MOUTH EVERY 4 TO 6 HOURS NEEDED 06/13/2016 06/13/2016 Inactive hydrocodone 10 mg-acetaminophen 325 mg tablet RxNorm: 680742 1-2 Tablet(s) PO Q6 as needed 05/15/2016 05/29/2016 Inactive hydrocodone 10 mg-acetaminophen 325 mg tablet RxNorm: 573284 1-2 Tablet(s) PO Q6 as needed 04/17/2016 05/01/2016 Inactive Benicar 20 mg tablet RxNorm: 008397 TAKE ONE TABLET BY MOUTH ONCE DAILY 04/13/2016 09/03/2016 Inactive prednisone 10 mg tablet RxNorm: 604797 1 Tablet(s) PO daily 06/12/2016 Inactive hydrocodone 10 mg-acetaminophen 325 mg tablet RxNorm: 846225 1-2 Tablet(s) PO Q6 as needed 03/07/2016 05/14/2016 Inactive hydrocodone 10 mg-acetaminophen 325 mg tablet RxNorm: 516266 1-2 Tablet(s) PO Q6 as needed 03/07/2016 04/16/2016 Inactive Kenalog 40 mg/mL suspension for injection RxNorm: 8807982 Milliliter(s) Inj 01/24/2016 01/24/2016 Inactive hydrocodone 10 mg-acetaminophen 325 mg tablet RxNorm: 666453 1-2 Tablet(s) PO Q6 as needed 01/19/2016 03/06/2016 Inactive hydrocodone 10 mg-acetaminophen 325 mg tablet RxNorm: 627969 1-2 Tablet(s) PO Q6 as needed 11/30/2015 01/18/2016 Inactive hydrocodone 10 mg-acetaminophen 325 mg tablet RxNorm: 472971 1-2 Tablet(s) PO Q6 as needed 09/22/2015 11/29/2015 Inactive prednisone 10 mg tablet RxNorm: 976974 1 Tablet(s) PO daily 11/10/2015 Inactive Vitamin D2 50,000 unit capsule RxNorm: 781700 1 Capsule(s) PO QW 07/28/2015 07/27/2016 Inactive vitamin d 2000 QD Advair Diskus 250 mcg-50 mcg/dose powder for inhalation RxNorm: 8955911 1 INH daily 07/26/2015 08/24/2015 Inactive ProAir HFA 90 mcg/actuation aerosol inhaler RxNorm: 805835 1-2 Puff(s) INH Q4-6H as needed 07/26/2015 11/22/2015 Inactive Kenalog 40 mg/mL suspension for injection RxNorm: 8020571 1 Milliliter(s) Inj daily 07/26/2015 07/26/2015 Inactive hydrocodone 10 mg-acetaminophen 325 mg tablet RxNorm: 124266 1-2 Tablet(s) PO Q6 as needed 07/15/2015 09/21/2015 Inactive prednisone 10 mg tablet RxNorm: 381524 1 Tablet(s) PO daily 11/201408/12/2015 Inactive hydrocodone 10 mg-acetaminophen 325 mg tablet RxNorm: 781000 1-2 Tablet(s) PO Q6 as needed 05/10/2015 07/14/2015 Inactive Benicar 20 mg tablet RxNorm: 284604 1 Tablet(s) PO daily 201403/30/2016 Inactive Vitamin D2 50,000 unit capsule RxNorm: 439635 1 Capsule(s) PO QW 03/25/2015 07/27/2015 Inactive vitamin d 2000 QD fluorouracil 5 % topical cream RxNorm: 818830 1 TOP daily 03/2404/22/2015 Inactive fluorouracil 5 % topical cream RxNorm: 202545 1 TOP daily 03/2403/23/2015 Inactive Efudex 5 % topical cream RxNorm: 497182 1 Application TOP BID to affected skin x 10 days. Let heal and may reapply 03/24/2015 04/22/2015 Inactive ProAir HFA 90 mcg/actuation aerosol inhaler RxNorm: 7690657 1-2 Puff(s) INH Q4-6H as needed 02/18/2015 02/17/2015 Inactive ProAir HFA 90 mcg/actuation aerosol inhaler RxNorm: 0394372 1-2 Puff(s) INH Q4-6H as needed 02/18/2015 06/17/2015 Inactive Vitamin D3 2,000 unit tablet RxNorm: 855921 1 Tablet(s) PO daily No Start Date 05/20/2017 Inactive Benicar 20 mg tablet RxNorm: 428401 1 Tablet(s) PO daily No Start Date 04/05/2015 Inactive Advair Diskus 250 mcg-50 mcg/dose powder for inhalation RxNorm: 9884027 1 INH daily No Start Date 07/25/2015 Inactive Vitamin D2 50,000 unit capsule RxNorm: 140305 1 Capsule(s) PO QW No Start Date 03/24/2015 Inactive vitamin d 2000 QD prednisone 10 mg tablet RxNorm: 495530 1 Tablet(s) PO daily No Start Date 05/26/2015 Inactive azithromycin 250 mg tablet RxNorm: 573807 1 Tablet(s) PO UD two tabs on day #1, the one tab daily x 4 doses No Start Date 08/06/2017 Inactive hydrocodone 10 mg-acetaminophen 325 mg tablet RxNorm: 300645 1-2 Tablet(s) PO Q6 as needed No Start Date 05/09/2015 Inactive Medication Administered Medication Codes Instructions Start Date Status Kenalog 40 mg/mL suspension for injection RxNorm: 2343453 1.5Milliliter 03/18/2018 No longer Active Kenalog 40 mg/mL suspension for injection RxNorm: 2296382 1Milliliter 02/21/2018 No longer Active Kenalog 40 mg/mL suspension for injection RxNorm: 4436661 Milliliter 09/14/2016 No longer Active Kenalog 40 mg/mL suspension for injection RxNorm: 3816801 1.5Milliliter 07/24/2016 No longer Active Kenalog 40 mg/mL suspension for injection RxNorm: 9451507 Milliliter 01/24/2016 No longer Active Kenalog 40 mg/mL suspension for injection RxNorm: 3871570 1Milliliterdaily 07/26/2015 No longer Active Immunizations Vaccine [...] Code Item Item Code Result Date Carmen 836611 CARMEN (GAY) SCREEN NONE DETECTED 07/27/2018 Sed Rate Ord21 ESR 29 mm/hr 07/26/2018 C-Reactive Protein Qnt Crqnt CRP 5.8 mg/dl 07/25/2018 Ra Factor Vos480 RA FACTOR <10 IU/ml 07/25/2018 Uric Acid Ord77 Uric A 5.2 mg/dL 07/25/2018 Comp Metabolic Bky657 NA 137 mEq/L 07/25/2018 Comp Metabolic Iaj171 K 3.9 mEq/L 07/25/2018 Comp Metabolic Nhe728 CL 100 mEq/L 07/25/2018 Comp Metabolic Glg361 CO2 28.0 mEq/L 07/25/2018 Comp Metabolic Xwr327 ANION GAP 13 07/25/2018 Comp Metabolic Cxy850 GLUCOSE 93 mg/dL 07/25/2018 Comp Metabolic Rbf808 Creat 0.8 mg/dL 07/25/2018 Comp Metabolic Neq338 eGFR 102 ml/min/1.73m2 07/25/2018 Comp Metabolic Urx619 BUN 26 mg/dL 07/25/2018 Comp Metabolic Pek676 B/C Ratio 33.3 Ratio 07/25/2018 Comp Metabolic Uql389 CALCIUM 9.5 mg/dL 07/25/2018 Comp Metabolic Tou354 ALK PHOS 47 U/L 07/25/2018 Comp Metabolic Leh976 AST(SGOT) 22 U/L 07/25/2018 Comp Metabolic Rid906 ALT(SGPT) 16 U/L 07/25/2018 Comp Metabolic Njz645 BILI T 0.6 mg/dL 07/25/2018 Comp Metabolic Pjq311 ALBUMIN 3.8 g/dL 07/25/2018 Comp Metabolic Ooq325 TPRO 5.9 g/dL 07/25/2018 Comp Metabolic Kfp766 GLOB 2.2 g/dL 07/25/2018 Comp Metabolic Adb501 A/G Ratio 1.7 Ratio 07/25/2018 Comp Metabolic Lxr556 Osmo 278 mOsmo 07/25/2018 Cbc With Differential [...] 14.6 % 07/25/2018 Cbc With Differential Ord2 MCH 29.7 pg 07/25/2018 Cbc With Differential Ord2 [place]% 11.0 % 07/25/2018 Cbc With Differential Ord2 Eos% 3.6 % 07/25/2018 Cbc With Differential Ord2 MCHC 32.8 pg 07/25/2018 Cbc With Differential Ord2 Baso% 0.3 % 07/25/2018 Cbc With Differential Ord2 PLT 187 K/ul 07/25/2018 Cbc With Differential Ord2 RDW 14.7 % 07/25/2018 Cbc With Differential Ord2 Neut ABS# 7.36 K/ul 07/25/2018 Cbc With Differential Ord2 Lymph ABS# 1.52 K/ul 07/25/2018 Cbc With Differential Ord2 [place] ABS# 1.2 K/ul 07/25/2018 Cbc With Differential Ord2 Eos ABS# 0.4 K/ul 07/25/2018 Cbc With Differential Ord2 Baso ABS# 0.0 K/ul 07/25/2018 Tsh Ord6 TSH (3rd IS) 1.01 uIU/mL 11/19/2017 Comp Metabolic Mqy395 NA 140 mEq/L 11/19/2017 Comp Metabolic Ggn307 K 3.8 mEq/L 11/19/2017 Comp Metabolic Kad261 CL 105 mEq/L 11/19/2017 Comp Metabolic Kbo172 CO2 30.0 mEq/L 11/19/2017 Comp Metabolic Dmy437 ANION GAP 9 11/19/2017 Comp Metabolic Dig355 GLUCOSE 91 mg/dL 11/19/2017 Comp Metabolic Qcs744 Creat 0.6 mg/dL 11/19/2017 Comp Metabolic Yor638 eGFR 133 ml/min/1.73m2 11/19/2017 Comp Metabolic Vip093 BUN 16 mg/dL 11/19/2017 Comp Metabolic Bun711 B/C Ratio 25.8 Ratio 11/19/2017 Comp Metabolic Ayf956 CALCIUM 9.6 mg/dL 11/19/2017 Comp Metabolic Yqe577 ALK PHOS 46 U/L 11/19/2017 Comp Metabolic Ilq274 AST(SGOT) 17 U/L 11/19/2017 Comp Metabolic Vkv442 ALT(SGPT) 13 U/L 11/19/2017 Comp Metabolic Bit785 BILI T 0.4 mg/dL 11/19/2017 Comp Metabolic Vzs218 ALBUMIN 3.6 g/dL 11/19/2017 Comp Metabolic Hlg901 TPRO 5.9 g/dL 11/19/2017 Comp Metabolic Moh339 GLOB 2.3 g/dL 11/19/2017 Comp Metabolic Tbw386 A/G Ratio 1.6 Ratio 11/19/2017 Comp Metabolic Say372 Osmo 280 mOsmo 11/19/2017 Cbc With Differential Ord2 WBC 7.64 K/ul 11/19/2017 Cbc With Differential Ord2 RBC 4.36 M/ul 11/19/2017 Cbc With Differential Ord2 HGB 12.8 g/dl 11/19/2017 Cbc With Differential Ord2 HCT 38.4 % 11/19/2017 Cbc With Differential Ord2 Neut% 55.6 % 11/19/2017 Cbc With Differential Ord2 MCV 88.1 fl 11/19/2017 Cbc With Differential Ord2 Lymph% 27.1 % 11/19/2017 Cbc With Differential Ord2 [place]% 13.9 % 11/19/2017 Cbc With Differential Ord2 MCH 29.4 pg 11/19/2017 Cbc With Differential Ord2 MCHC 33.3 pg 11/19/2017 Cbc With Differential Ord2 Eos% 2.6 % 11/19/2017 Cbc With Differential Ord2 PLT 202 K/ul 11/19/2017 Cbc With Differential Ord2 Baso% 0.8 % 11/19/2017 Cbc With Differential Ord2 Neut ABS# 4.25 K/ul 11/19/2017 Cbc With Differential Ord2 RDW 14.8 % 11/19/2017 Cbc With Differential Ord2 Lymph ABS# 2.07 K/ul 11/19/2017 Cbc With Differential Ord2 [place] ABS# 1.1 K/ul 11/19/2017 Cbc With Differential Ord2 Eos ABS# 0.2 K/ul 11/19/2017 Cbc With Differential Ord2 Baso ABS# 0.1 K/ul 11/19/2017 Lipid Ord30 CHOL 182 mg/dL 11/19/2017 Lipid Ord30 HDL 50.0 mg/dl 11/19/2017 Lipid Ord30 TRIG 138 mg/dL 11/19/2017 Lipid Ord30 LDL 104 mg/dL 11/19/2017 Lipid Ord30 C/HDL 3.6 Ratio 11/19/2017 Uric Acid Ord77 Uric A 5.5 mg/dL 08/08/2017 Urine Culture Ucult Preliminary NO Growth Day 1 11/27/2016 Urine Culture Ucult Complete NO Growth Day 2 11/27/2016 Vitamin D 25 Oh Qcq6687 VITAMIN D, 25 HYDROXY 28.69 ng/mL Total Psa Ord10 PSA 0.03 ng/mL 07/27/2016 Comp Metabolic Axb836 NA 138 mEq/L 07/27/2016 Comp Metabolic Tnc985 K 4.1 mEq/L 07/27/2016 Comp Metabolic Rlu559 CL 106 mEq/L 07/27/2016 Comp Metabolic Cqc503 CO2 26.0 mEq/L 07/27/2016 Comp Metabolic Unr736 ANION GAP 10 07/27/2016 Comp Metabolic Ihy855 GLUCOSE 102 mg/dL 07/27/2016 Comp Metabolic Aaf466 Creat 0.7 mg/dL 07/27/2016 Comp Metabolic Gpb385 eGFR 125 ml/min/1.73m2 07/27/2016 Comp Metabolic Ltm510 BUN 24 mg/dL 07/27/2016 Comp Metabolic Fos529 B/C Ratio 36.4 Ratio 07/27/2016 Comp Metabolic Hom356 CALCIUM 10.2 mg/dL 07/27/2016 Comp Metabolic Ynt938 ALK PHOS 41 U/L 07/27/2016 Comp Metabolic Vel719 AST(SGOT) 17 U/L 07/27/2016 Comp Metabolic Eyw773 ALT(SGPT) 14 U/L 07/27/2016 Comp Metabolic Phc135 BILI T 0.5 mg/dL 07/27/2016 Comp Metabolic Ytx631 ALBUMIN 3.9 g/dL 07/27/2016 Comp Metabolic Wzz025 TPRO 6.3 g/dL 07/27/2016 Comp Metabolic Koo113 GLOB 2.4 g/dL 07/27/2016 Comp Metabolic Ipn979 A/G Ratio 1.6 Ratio 07/27/2016 Comp Metabolic Quq780 Osmo 280 mOsmo 07/27/2016 Cbc With Differential [...] 29.3 pg 07/27/2016 Cbc With Differential Ord2 [place]% 10.1 % 07/27/2016 Cbc With Differential Ord2 [...] 1.79 K/ul 07/27/2016 Cbc With Differential Ord2 [place] ABS# 0.8 K/ul 07/27/2016 Cbc With Differential Ord2 Eos ABS# 0.1 K/ul 07/27/2016 Cbc With Differential Ord2 Baso ABS# 0.0 K/ul 07/27/2016 Tsh Ord6 hTSH II 1.21 uIU/mL 07/27/2016 Lipid Ord30 CHOL 184 mg/dL 07/27/2016 Lipid Ord30 HDL 53.0 mg/dl 07/27/2016 Lipid Ord30 TRIG 106 mg/dL 07/27/2016 Lipid Ord30 LDL 110 mg/dL 07/27/2016 Lipid Ord30 C/HDL 3.5 Ratio 07/27/2016 Comp Metabolic Hbr393 NA 137 mEq/L 07/26/2015 Comp Metabolic Phx546 K 3.7 mEq/L 07/26/2015 Comp Metabolic Mbj276 CL 103 mEq/L 07/26/2015 Comp Metabolic Iag135 CO2 26.0 mEq/L 07/26/2015 Comp Metabolic Fly837 ANION GAP 12 07/26/2015 Comp Metabolic Uon600 GLUCOSE 99 mg/dL 07/26/2015 Comp Metabolic Prp332 Creat 0.8 mg/dL 07/26/2015 Comp Metabolic Tmz735 eGFR 103 ml/min/1.73m2 07/26/2015 Comp Metabolic Spp507 BUN 22 mg/dL 07/26/2015 Comp Metabolic Noa157 B/C Ratio 28.2 Ratio 07/26/2015 Comp Metabolic Ddv251 CALCIUM 9.7 mg/dL 07/26/2015 Comp Metabolic Kac800 ALK PHOS 40 U/L 07/26/2015 Comp Metabolic Rdr062 AST(SGOT) 26 U/L 07/26/2015 Comp Metabolic Gyy112 ALT(SGPT) 20 U/L 07/26/2015 Comp Metabolic Nfy987 BILI T 0.5 mg/dL 07/26/2015 Comp Metabolic Hpi924 ALBUMIN 3.9 g/dL 07/26/2015 Comp Metabolic Svh325 TPRO 6.4 g/dL 07/26/2015 Comp Metabolic Imj200 GLOB 2.5 g/dL 07/26/2015 Comp Metabolic Pfq496 A/G Ratio 1.6 Ratio 07/26/2015 Comp Metabolic Rrc297 Osmo 277 mOsmo 07/26/2015 Tsh Ord6 hTSH [...] 0.01 ng/mL 07/26/2015 Vitamin D 25 Oh Uqi0867 VITAMIN D, 25 HYDROXY 31.47 ng/mL Review [...] - General 1995 Ears/Nose/Throat oral cavity/pharynx/larynx Overall: hypopharynx benign 07/26/2015 [...] CPT -4: G0439 08/05/2018 DRAIN/INJECT JOINT/BURSA CPT-4: 41230 03/18/2018 TRIAMCINOLONE ACET INJ NOS CPT-4: J3301 03/18/2018 THER/PROPH/DIAG INJ SC/IM CPT-4: 39567 02/21/2018 TRIAMCINOLONE ACET INJ NOS CPT-4: J3301 02/21/2018 PPPS, SUBSEQ VISIT CPT -4: G0439 05/22/2017 TRIAMCINOLONE ACET INJ NOS CPT-4: J3301 09/14/2016 TRIAMCINOLONE ACET INJ NOS CPT-4: J3301 07/24/2016 THER/PROPH/DIAG INJ SC/IM CPT-4: 88479 07/24/2016 TRIAMCINOLONE ACET INJ NOS CPT-4: J3301 01/24/2016 TRIAMCINOLONE ACET INJ NOS CPT-4: J3301 07/26/2015 THER/PROPH/DIAG INJ SC/IM CPT-4: 39722 07/26/2015 Vital Signs Date Vital 08/26/2018 Blood Pressure 1: 166/84 Code : 8480-6 Heart Rate 1: 80 bpm Height: 6'4" SpO2: 98% Temperature: 36.7 (C) / 98.1 (F) Weight: 08/05/2018 Blood Pressure 1: 118/64 Code : 8480-6 BMI: 26.2 Code : 56896-9 Heart Rate 1 : 66 bpm Height: 6'4" SpO2: 97% Waist Measure (cm): 81 cm Weight: 215 lbs 07/25/2018 Blood Pressure 1: 128/78 Code : 8480-6 BMI: 26.2 Code : 11216-1 Heart Rate 1 : 68 bpm Height: 6'4" SpO2: 95% Weight: 215 lbs 07/22/2018 Blood Pressure 1: 142/78 Code : 8480-6 BMI: 26.7 Code : 36456-5 Heart Rate 1 : 64 bpm Height: 6'4" SpO2: 99% Weight: 219 lbs 03/18/2018 Blood Pressure 1: 136/84 Code : 8480-6 BMI: 26.5 Code : 63683-7 Heart Rate 1 : 79 bpm Height: 6'4" SpO2: 99% Weight: 218 lbs 11/27/2017 Blood Pressure 1: 132/64 Code : 8480-6 BMI: 27.8 Code : 29720-7 Heart Rate 1 : 41 bpm Height: 6'4" SpO2: 97% Weight: 228 lbs 11/19/2017 Blood Pressure 1: 148/76 Code : 8480-6 Blood Pressure 1: 140/88 Code: 8480-6 BMI: 27.3 Code: 39523-2 Heart Rate 1: 58 bpm Height: 6'4" SpO2: 98% Weight: 224 lbs 08/08/2017 Blood Pressure 1: 130/80 Code : 8480-6 BMI: 26.5 Code : 70826-8 Heart Rate 1 : 71 bpm Height: 6'4" SpO2: 98% Weight: 218 lbs 05/22/2017 Blood Pressure 1: 142/78 Code : 8480-6 BMI: 28.0 Code : 74711-0 Heart Rate 1 : 77 bpm Height: 6'4" SpO2: 94% Waist Measure (cm): 91 cm Weight: 230 lbs 05/21/2017 Blood Pressure 1: 144/72 Code : 8480-6 BMI: 28.1 Code : 46013-3 Heart Rate 1 : 74 bpm Height: 6'4" SpO2: 95% Weight: 230 lbs 8 oz 11/23/2016 Blood Pressure 1: 136/74 Code : 8480-6 BMI: 29.9 Code : 14654-9 Heart Rate 1 : 59 bpm Height: 6'4" SpO2: 94% Weight: 246 lbs 11/20/2016 Blood Pressure 1: 130/80 Code : 8480-6 BMI: 29.9 Code : 34237-8 Heart Rate 1 : 75 bpm Height: 6'4" SpO2: 98% Weight: 246 lbs 11/10/2016 Blood Pressure 1: 140/82 Code : 8480-6 BMI: 29.7 Code : 71312-0 Heart Rate 1 : 64 bpm Height: 6'4" SpO2: 94% Weight: 244 lbs 09/14/2016 Blood Pressure 1: 130/82 Code : 8480-6 BMI: 27.4 Code : 93892-7 Heart Rate 1 : 74 bpm Height: 6'4" SpO2: 96% Weight: 225 lbs 07/24/2016 Blood Pressure 1: 128/78 Code : 8480-6 BMI: 27.4 Code : 47538-8 Heart Rate 1 : 78 bpm Height: 6'4" SpO2: 94% Weight: 225 lbs 01/24/2016 Blood Pressure 1: 124/88 Code : 8480-6 BMI: 29.5 Code : 32235-5 Heart Rate 1 : 68 bpm Height: 6'4" SpO2: 98% Weight: 242 lbs 07/26/2015 Blood Pressure 1: 150/82 Code : 8480-6 Blood Pressure 1: 138/82 Code: 8480-6 BMI: 29.9 Code: 49470-1 Heart Rate 1: 68 bpm Height: 6'4" SpO2: 94% Weight: 246 lbs 03/24/2015 Blood Pressure 1: 114/84 Code : 8480-6 BMI: 29.8 Code : 05739-8 Heart Rate 1 : 67 bpm Height: [...] abscess without bleeding[ICD10: K57.20] Lizz Hussein MD, [facility] CPT-4: 87019 08/26/2018 [id number] EST. PATIENT, LEVEL IV Diagnosis: Pain in left wrist[ICD10: M25.532] Diagnosis: Other malaise[ICD10: R53.81] Diagnosis: Other fatigue[ICD10: R53.83] Lizz Hussein MD, [facility] CPT-4 : 91053 07/25/2018 ([id number]) [id number] EST. PATIENT, LEVEL IV Diagnosis: Essential (primary) hypertension[ICD10: I10] Diagnosis: Chronic pain syndrome[ICD10: G89.4] Diagnosis: Low back pain[ICD10: M54.5] Beverly Hussein MD, [facility] CPT- 4: 40136 07/22/2018 ([id number]) [id number] EST. PATIENT, LEVEL III Diagnosis: Sacroiliitis, not elsewhere classified[ICD10: M46.1] Diagnosis: Spinal instabilities, sacral and sacrococcygeal region[ICD10: M53.2X8 ] Diagnosis: Essential (primary) hypertension[ICD10: I10] Diagnosis: Chronic pain syndrome[ICD10: G89.4] Beverly Hussein MD, [facility] CPT-4: 84632 03/18/2018 [id number] EST. PATIENT, LEVEL III Diagnosis: Pain in right knee[ICD10: M25.561] Lizz Hussein MD [facility] CPT-4: 91967 11/27/2017 ([id number]) 80371 EST. PATIENT, LEVEL IV Diagnosis: Essential (primary) hypertension[ICD10: I10] Diagnosis: Chronic pain syndrome[ICD10: G89.4] Diagnosis: Vitamin D deficiency, unspecified[ICD10: E55.9] Beverly Hussein MD, [facility] CPT-4: 85982 11/19/2017 ([id number]) 92214 EST. PATIENT, LEVEL III Diagnosis: Olecranon bursitis, right elbow[ICD10: M70.21] Beverly Hussein MD, [facility] CPT-4: 82581 08/08/2017 ([id number]) 19118 EST. PATIENT, LEVEL IV Diagnosis: Essential (primary) hypertension[ICD10: I10] Diagnosis: Low back pain[ICD10: M54.5] Beverly Hussein MD, [facility] CPT- 4: 77279 05/21/2017 42783 EST. PATIENT, LEVEL III Diagnosis: Calculus of kidney[ICD10: N20.0] Lizz Hussein MD [facility] CPT- 4: 33708 11/23/2016 ([id number]) 38278 EST. PATIENT, LEVEL III Diagnosis: Essential (primary) hypertension[ICD10: I10] Beverly Hussein MD, [facility] CPT-4: 86746 11/20/2016 94333 EST. PATIENT, LEVEL III Diagnosis: Nausea[ICD10: R11.0] Lizz Hussein MD, [facility] CPT-4: 61216 11/10/2016 ([id number]) 86728 EST. PATIENT, LEVEL III Diagnosis: Allergic rhinitis due to pollen[ICD10: J30.1] Diagnosis: Other benign neoplasm of skin of unspecified part of face[ICD10: D23.30] Kelsy Hussein MD, [facility] CPT-4: 64423 ([id number]) 68538 EST. PATIENT, LEVEL IV Diagnosis: Essential (primary) hypertension[ICD10: I10] Diagnosis: Vitamin D deficiency, unspecified[ICD10: E55.9] Diagnosis: Low back pain[ICD10: M54.5] Diagnosis: Mild intermittent asthma with (acute) exacerbation[ICD10: J45.21] Kelsy Hussein MD, [facility] CPT-4: 26079 07/24/2016 ([id number]) 08841 EST. PATIENT, LEVEL IV Diagnosis: Essential (primary) hypertension[ICD10: I10] Diagnosis: Allergic rhinitis due to pollen[ICD10: J30.1] Diagnosis: Low back pain[ICD10: M54.5] Kelsy Hussein MD, [facility] CPT-4: 99963 01/24/2016 ([id number]) 68041 EST. PATIENT, LEVEL IV Diagnosis: Essential (primary) hypertension[ICD10: I10] Diagnosis: Vitamin D deficiency, unspecified[ICD10: E55.9] Diagnosis: Chronic pain syndrome[ICD10: G89.4] Diagnosis: Allergic rhinitis, unspecified[ICD10: J30.9] Kelsy Hussein MD, [facility] CPT-4: 45987 07/26/2015 ([id number]) OFFICE VISIT, NEW - LEVEL 4 Diagnosis: ESSENTIAL HYPERTENSION[ICD9: 401.9] Diagnosis: CHRONIC PAIN SYNDROME[ICD9: 338.4] Diagnosis: Skin change[ICD9: 782.9] Beverly Hussein MD, [facility] CPT-4: 73542 03/24/2015 Plan of Care Planned Activity Notes Codes Status Date Appointment: Kelsy Hsu WPtel: [address] [place], [place] [phone] [place] (15 min) Moderate 08/27/2018 Visit Plan: [...] 4PM today. 08/26/2018 Appointment: Lizz Wilks WPtel: [facility] (30 min) Complex 08/26/2018 Patient Education: Patient Medication Summary Completed 08/26/2018 Appointment: Kelsy Hsu WPtel: [facility]1 [phone] [place] (15 min) Moderate 08/19/2018 Appointment: Lizz Wilks WPtel: [facility]6 [facility]66[facility] (15 min) Moderate 08/07/2018 Visit Plan: Medicare [...] care surrogate. 08/05/2018 Appointment: Lizz Wilks WPtel: [facility]1 [facility] [place] [address] - Annual Wellness Visit 08/05/2018 Patient Education: [...] concerns. 07/25/2018 Appointment: [phone] [facility] (15 min) Moderate 07/25/2018 Patient Education: Patient [...] - 07/22/2018 [facility]ment[phone] ([facility]) Moderate 07/22/2018 Patient Education: [...] dose thereafter. 03/18/2018 Appointment: [phone] [place] (15 min) Moderate 03/18/2018 Patient [...] improve. 11/27/2017 Appointment: [facility] Wilks [phone] [facility] (30 min) Complex 11/27/2017 Patient Education: Patient Medication Summary Completed 11/27/2017 Care Plan: X-RAY EXAM OF KNEE 3 [facility] : 96987-5 Pending 11/27/2017 Visit Plan: Hypertension -usually pt [...] medications. 11/19/2017 Appointment: Beverly [phone] [facility] [place] (15 min) Moderate 11/19/2017 Patient [...] surrogate. 05/22/2017 Appointment: [phone] [phone] [facility] - Annual Wellness Visit 05/22/2017 Patient Education: [...] Yoga. 05/21/2017 Appointment: Beverly Hussein WPtel: [phone] [facility] (15 min) Moderate 05/21/2017 Patient Education: Patient Medication Summary Completed 05/21/2017 Patient Education: Hypertension Completed 05/21/2017 Care Plan: X-RAY EXAM OF ABDOMEN LOINC : 51358-6 Pending 12/17/2016 Visit Plan: Left flank pain - KUB shows renal caliculi - will refer to Dr. Robledo. Pt is to notify clinic with any changes or concerns. 11/23/2016 Appointment: [facility]ks [facility]Ptel[phone] [facility] (15 min) Moderate 11/23/2016 Patient Education: [...] right cheek 11/20/2016 Appointment: [phone] (15 min) Moderate 11/20/2016 Patient Education: Patient [...] esophageal reflux. 11/10/2016 Appointment: Lizz Wilks WPtel: [facility] [address] (30 min) Complex 11/10/2016 Patient Education: Patient Medication Summary Completed 11/10/2016 Referral: Poncho Mock [address] Referral Completed 11/03/2016 Visit Plan: Cyst-right cheek-refer to Dr Mock for removal Lrdikixyz-xsrswr-ldpngdqck symptoms-kenalog injection today in the office- samples of advair provided and instructed on use. 09/14/2016 Appointment: Kelsy sHu WPtel: [facility] [place] [phone] (30 min) Complex 09/14/2016 Patient Education: Patient Medication Summary Completed 09/14/2016 Care Plan: Referral Order SNOMED-CT : [id number] Pending 09/14/2016 Visit Plan: Hypertension - well [...] prn use 07/24/2016 Appointment: Kelsy Hsu WPtel: [phone] [phone] (15 min) Moderate 07/24/2016 Patient Education: [...] spray. Kenalog injection today in the office Fmmjt-Tzxnhv-chtzgt to symbicort Low back pain-recommend stretches for [...] Patient Education: Hypertension Completed 03/24/2015 [facility] [facility] Requested Instructions Comment . Olecranon [...] Dr. Banuelos at 4PM today. REFER FOR PT-PINAMFRANKLINI -LOW BACK PAIN, SCIATICA INCREASE ADVAIR TO [...] spray. Kenalog injection today in the office Bafuo-Sfwysr-pduvly to symbicort Low back pain-recommend stretches for [...] Cyst-right cheek-refer to Dr Mock for removal Lbiydvurx-qxapqw-uluqpfdvx symptoms-kenalog injection today in the office- samples [...]
--- OUTSIDE RECORDS SUMMARY | 2018-10-09 14:30 | XMS REPORT | CCD ---
Author Author [facility] Organization [facility] Address [address] [place] [address] Phone Care Team Providers Care Fagot Heater Name Role Phone PP Unavailable CCM Unavailable Summary Purpose Interface Exchange Insurance Providers Payer name Policy type / Coverage type Covered green party ID Effective Begin Date Effective End Date WPS Medicare Part B Medicare Part B [id number] 2015 Unknown AARP Medicare Part B [id number] 2015 Unknown Family history Mother Diagnosis Age At Onset Dementia Unknown Father Diagnosis Age At Onset lung cancer Unknown Social History Social History Element Codes Description Effective Dates Marital status Unknown Michelle 03/24/2015 Number of children Unknown 3 03/24/2015 Employment Unknown Retired 03/24/[address]: 420177800 Never smoker 03/24/[address]: 209257455 Never drinks alcohol 03/24/2015 Allergies, Adverse Reactions, [...] Bactrim DS 800 mg-160 mg tablet RxNorm: 802254 1 Tablet(s) PO BID 08/26/2018 09/04/2018 Active Bactrim DS 800 mg-160 mg tablet RxNorm: 503314 1 Tablet(s) PO BID 08/26/2018 08/25/2018 Inactive gabapentin 100 mg capsule RxNorm: 793267 1 Capsule(s) PO TID , if not having improvement in sam after 5 day, may increase up to two pills three times daily 08/22/2018 11/19/2018 Active morphine ER 15 mg tablet,extended release RxNorm: 704525 1 Tablet(s) PO BID 08/22/2018 09/20/2018 Active Zofran ODT 4 mg disintegrating tablet RxNorm: 526074 1 Tablet(s) PO TID 07/25/2018 07/29/2018 Inactive prednisone 20 mg tablet RxNorm: 805295 Tablet(s) PO 07/25/2018 08/21/2018 Inactive 60 ,60,40,40,20,20 morphine ER 15 mg tablet,extended release RxNorm: 843290 1 Tablet(s) PO BID 07/22/2018 08/20/2018 Inactive gabapentin 100 mg capsule RxNorm: 447098 1 Capsule(s) PO TID , if not having improvement in sam after 5 day, may increase up to two pills three times daily 07/22/2018 08/20/2018 Inactive ProAir HFA 90 mcg/actuation aerosol inhaler RxNorm: 583604 USE 1 TO 2 PUFFS EVERY 4 TO 6 HOURS NEEDED 07/02/20182018 Active 3 * 8.5 GM=25.5 GM Total - Ref : [id number] hydrocodone 10 mg-acetaminophen 325 mg tablet RxNorm: 031196 1-2 Tablet(s) PO Q6 as needed for pain 06/20/2018 07/04/2018 Inactive hydrocodone 10 mg-acetaminophen 325 mg tablet RxNorm: 161705 1-2 Tablet(s) PO Q6 as needed for pain 05/20/2018 06/03/2018 Inactive hydrocodone 10 mg-acetaminophen 325 mg tablet RxNorm: 477900 1-2 Tablet(s) PO Q6 as needed for pain 04/17/2018 05/01/2018 Inactive Kenalog 40 mg/mL suspension for injection RxNorm: 9616078 1.5 Milliliter(s) Inj 03/18/2018 03/18/2018 Inactive hydrocodone 10 mg-acetaminophen 325 mg tablet RxNorm: 269672 1-2 Tablet(s) PO Q6 as needed for pain 03/18/2018 04/01/2018 Inactive prednisone 20 mg tablet RxNorm: 730323 1 Tablet(s) PO daily 03/22/2018 Inactive prednisone 10 mg tablet RxNorm: 914508 TAKE 1 TABLET BY MOUTH DAILY 03/11/2018 06/03/2019 Active - Ref: [id number] Kenalog 40 mg/mL suspension for injection RxNorm: 3123667 1 Milliliter(s) Inj 02/21/2018 02/21/2018 Inactive hydrocodone 10 mg-acetaminophen 325 mg tablet RxNorm: 068010 1-2 Tablet(s) PO Q6 as needed for pain 02/20/2018 03/06/2018 Inactive hydrocodone 10 mg-acetaminophen 325 mg tablet RxNorm: 070660 1-2 Tablet(s) PO Q6 as needed for pain 01/23/2018 02/06/2018 Inactive hydrocodone 10 mg-acetaminophen 325 mg tablet RxNorm: 621171 1-2 Tablet(s) PO Q6 as needed for pain 12/25/2017 01/08/2018 Inactive doxycycline hyclate 100 mg capsule RxNorm: 6923714 1 Capsule(s) PO BID 11/29/2017 12/08/2017 Inactive doxycycline hyclate 100 mg capsule RxNorm: 0176086 1 Capsule(s) PO BID 11/29/2017 11/28/2017 Inactive hydrocodone 10 mg-acetaminophen 325 mg tablet RxNorm: 123807 1-2 Tablet(s) PO Q6 as needed for pain 11/01/2017 11/15/2017 Inactive hydrocodone 10 mg-acetaminophen 325 mg tablet RxNorm: 685591 1-2 Tablet(s) PO Q6 as needed for pain 10/03/2017 10/17/2017 Inactive ProAir HFA 90 mcg/actuation aerosol inhaler RxNorm: 931793 USE 1 TO 2 PUFFS EVERY 4 TO 6 HOURS NEEDED 09/28/20172017 Inactive 3 * 8.5 GM=25.5 GM Total - Ref: [id number] hydrocodone 10 mg-acetaminophen 325 mg tablet RxNorm: 273144 1-2 Tablet(s) PO Q6 as needed for pain 08/30/2017 09/13/2017 Inactive Benicar 20 mg tablet RxNorm: 723514 Tablet(s) TAKE 1 TABLET BY MOUTH DAILY 08/20/2017 08/14/2018 Inactive Benicar 20 mg tablet RxNorm: 539121 TAKE 1 TABLET BY MOUTH DAILY 08/15/2017 08/19/2017 Inactive - Ref: [id number] azithromycin 250 mg tablet RxNorm: 874803 1 Tablet(s) PO UD two tabs on day #1, the one tab daily x 4 doses 08/07/2017 Inactive hydrocodone 10 mg-acetaminophen 325 mg tablet RxNorm: 500398 1-2 Tablet(s) PO Q6 as needed for pain 07/31/2017 08/14/2017 Inactive prednisone 10 mg tablet RxNorm: 258493 TAKE 1 TABLET BY MOUTH DAILY 07/30/2017 01/25/2018 Inactive - Ref: [id number] hydrocodone 10 mg-acetaminophen 325 mg tablet RxNorm: 691821 1-2 Tablet(s) PO Q6 as needed for pain 06/29/2017 07/13/2017 Inactive ProAir HFA 90 mcg/actuation aerosol inhaler RxNorm: 292119 INHALE ONE TO TWO PUFFS BY MOUTH EVERY 4 TO 6 HOURS NEEDED 06/04/2017 07/21/2017 Inactive hydrocodone 10 mg-acetaminophen 325 mg tablet RxNorm: 582571 1-2 1 Tablet(s) PO Q6 as needed for pain 05/22/20172016 Inactive hydrocodone 10 mg-acetaminophen 325 mg tablet RxNorm: 766846 1-2 1 Tablet(s) PO Q6 as needed for pain 04/30/20172016 Inactive hydrocodone 10 mg-acetaminophen 325 mg tablet RxNorm: 609752 1-2 Tablet(s) PO Q6 as needed for pain 03/30/2017 04/13/2017 Inactive Benicar 20 mg tablet RxNorm: 931946 Take 1 tablet by mouth daily 03/22/2017 08/14/2017 Inactive - First Attempt Ref: [id number] hydrocodone 10 mg-acetaminophen 325 mg tablet RxNorm: 977204 1-2 Tablet(s) PO Q6 as needed for pain 03/01/2017 03/15/2017 Inactive Advair Diskus 250 mcg-50 mcg/dose powder for inhalation RxNorm: 1716164 1 INH daily 02/09/2017 02/03/2018 Inactive prednisone 10 mg tablet RxNorm: 776663 Take 1 tablet by mouth daily 02/01/2017 07/29/2017 Inactive - Ref: [id number] hydrocodone 10 mg-acetaminophen 325 mg tablet RxNorm: 872049 1-2 Tablet(s) PO Q6 as needed for pain 02/01/2017 02/15/2017 Inactive hydrocodone 10 mg-acetaminophen 325 mg tablet RxNorm: 781470 1-2 Tablet(s) PO Q6 as needed for pain 01/03/2017 01/17/2017 Inactive hydrocodone 10 mg-acetaminophen 325 mg tablet RxNorm: 800922 1-2 Tablet(s) PO Q6 as needed for pain 12/11/2016 12/25/2016 Inactive prednisone 10 mg tablet RxNorm: 974022 1 Tablet(s) 1 Tablet(s) PO daily 11/10/2016 01/31/2017 Inactive Zofran 4 mg tablet RxNorm: 694809 1 Tablet(s) PO TID 201611/14/2016 Inactive hydrocodone 10 mg-acetaminophen 325 mg tablet RxNorm: 778052 1-2 Tablet(s) PO Q6 as needed for pain 10/31/2016 11/14/2016 Inactive prednisone 10 mg tablet RxNorm: 105791 Take 1 tablet by mouth daily 10/23/2016 03/17/2018 Inactive - Ref: [id number] Advair Diskus 250 mcg-50 mcg/dose powder for inhalation RxNorm: 4419010 1 INH daily 10/13/2016 01/10/2017 Inactive Kenalog 40 mg/mL suspension for injection RxNorm: 6650513 Milliliter(s) Inj 09/14/2016 09/14/2016 Inactive hydrocodone 10 mg-acetaminophen 325 mg tablet RxNorm: 924228 1-2 Tablet(s) PO Q6 as needed for pain 09/11/2016 09/25/2016 Inactive Benicar 20 mg tablet RxNorm: 091965 Take 1 tablet by mouth daily 09/04/2016 03/02/2017 Inactive - First Attempt Ref: [id number] prednisone 10 mg tablet RxNorm: 961997 1 Tablet(s) 1 Tablet(s) PO daily 08/28/2016 10/22/2016 Inactive Vitamin D2 50,000 unit capsule RxNorm: 856499 1 Capsule(s) PO QW 07/28/2016 05/20/2017 Inactive Kenalog 40 mg/mL suspension for injection RxNorm: 8855846 1.5 Milliliter(s) Inj 07/24/2016 07/24/2016 Inactive hydrocodone 10 mg-acetaminophen 325 mg tablet RxNorm: 577221 1-2 Tablet(s) PO Q6 as needed 07/24/2016 09/10/2016 Inactive hydrocodone 10 mg-acetaminophen 325 mg tablet RxNorm: 332363 1-2 Tablet(s) PO Q6 as needed 06/21/2016 07/05/2016 Inactive ProAir HFA 90 mcg/actuation aerosol inhaler RxNorm: 527606 INHALE ONE TO TWO PUFFS BY MOUTH EVERY 4 TO 6 HOURS NEEDED 06/14/2016 07/17/2016 Inactive prednisone 10 mg tablet RxNorm: 665555 Tablet(s) 1 Tablet(s) PO daily 06/14/2016 08/27/2016 Inactive prednisone 10 mg tablet RxNorm: 874744 1 Tablet(s) PO daily 06/13/2016 Inactive ProAir HFA 90 mcg/actuation aerosol inhaler RxNorm: 736209 INHALE ONE TO TWO PUFFS BY MOUTH EVERY 4 TO 6 HOURS NEEDED 06/13/2016 06/13/2016 Inactive hydrocodone 10 mg-acetaminophen 325 mg tablet RxNorm: 922124 1-2 Tablet(s) PO Q6 as needed 05/15/2016 05/29/2016 Inactive hydrocodone 10 mg-acetaminophen 325 mg tablet RxNorm: 106559 1-2 Tablet(s) PO Q6 as needed 04/17/2016 05/01/2016 Inactive Benicar 20 mg tablet RxNorm: 147420 TAKE ONE TABLET BY MOUTH ONCE DAILY 04/13/2016 09/03/2016 Inactive prednisone 10 mg tablet RxNorm: 216898 1 Tablet(s) PO daily 06/12/2016 Inactive hydrocodone 10 mg-acetaminophen 325 mg tablet RxNorm: 878616 1-2 Tablet(s) PO Q6 as needed 03/07/2016 05/14/2016 Inactive hydrocodone 10 mg-acetaminophen 325 mg tablet RxNorm: 830437 1-2 Tablet(s) PO Q6 as needed 03/07/2016 04/16/2016 Inactive Kenalog 40 mg/mL suspension for injection RxNorm: 8173392 Milliliter(s) Inj 01/24/2016 01/24/2016 Inactive hydrocodone 10 mg-acetaminophen 325 mg tablet RxNorm: 100422 1-2 Tablet(s) PO Q6 as needed 01/19/2016 03/06/2016 Inactive hydrocodone 10 mg-acetaminophen 325 mg tablet RxNorm: 056358 1-2 Tablet(s) PO Q6 as needed 11/30/2015 01/18/2016 Inactive hydrocodone 10 mg-acetaminophen 325 mg tablet RxNorm: 843205 1-2 Tablet(s) PO Q6 as needed 09/22/2015 11/29/2015 Inactive prednisone 10 mg tablet RxNorm: 946661 1 Tablet(s) PO daily 11/10/2015 Inactive Vitamin D2 50,000 unit capsule RxNorm: 685331 1 Capsule(s) PO QW 07/28/2015 07/27/2016 Inactive vitamin d 2000 QD Advair Diskus 250 mcg-50 mcg/dose powder for inhalation RxNorm: 8328967 1 INH daily 07/26/2015 08/24/2015 Inactive ProAir HFA 90 mcg/actuation aerosol inhaler RxNorm: 956357 1-2 Puff(s) INH Q4-6H as needed 07/26/2015 11/22/2015 Inactive Kenalog 40 mg/mL suspension for injection RxNorm: 1106098 1 Milliliter(s) Inj daily 07/26/2015 07/26/2015 Inactive hydrocodone 10 mg-acetaminophen 325 mg tablet RxNorm: 312226 1-2 Tablet(s) PO Q6 as needed 07/15/2015 09/21/2015 Inactive prednisone 10 mg tablet RxNorm: 314246 1 Tablet(s) PO daily 11/201408/12/2015 Inactive hydrocodone 10 mg-acetaminophen 325 mg tablet RxNorm: 194768 1-2 Tablet(s) PO Q6 as needed 05/10/2015 07/14/2015 Inactive Benicar 20 mg tablet RxNorm: 365398 1 Tablet(s) PO daily 201403/30/2016 Inactive Vitamin D2 50,000 unit capsule RxNorm: 531835 1 Capsule(s) PO QW 03/25/2015 07/27/2015 Inactive vitamin d 2000 QD fluorouracil 5 % topical cream RxNorm: 275808 1 TOP daily 03/2404/22/2015 Inactive fluorouracil 5 % topical cream RxNorm: 383797 1 TOP daily 03/2403/23/2015 Inactive Efudex 5 % topical cream RxNorm: 936412 1 Application TOP BID to affected skin x 10 days. Let heal and may reapply 03/24/2015 04/22/2015 Inactive ProAir HFA 90 mcg/actuation aerosol inhaler RxNorm: 0742385 1-2 Puff(s) INH Q4-6H as needed 02/18/2015 02/17/2015 Inactive ProAir HFA 90 mcg/actuation aerosol inhaler RxNorm: 8654942 1-2 Puff(s) INH Q4-6H as needed 02/18/2015 06/17/2015 Inactive Vitamin D3 2,000 unit tablet RxNorm: 233733 1 Tablet(s) PO daily No Start Date 05/20/2017 Inactive Benicar 20 mg tablet RxNorm: 714388 1 Tablet(s) PO daily No Start Date 04/05/2015 Inactive Advair Diskus 250 mcg-50 mcg/dose powder for inhalation RxNorm: 5489035 1 INH daily No Start Date 07/25/2015 Inactive Vitamin D2 50,000 unit capsule RxNorm: 845530 1 Capsule(s) PO QW No Start Date 03/24/2015 Inactive vitamin d 2000 QD prednisone 10 mg tablet RxNorm: 766353 1 Tablet(s) PO daily No Start Date 05/26/2015 Inactive azithromycin 250 mg tablet RxNorm: 530289 1 Tablet(s) PO UD two tabs on day #1, the one tab daily x 4 doses No Start Date 08/06/2017 Inactive hydrocodone 10 mg-acetaminophen 325 mg tablet RxNorm: 098505 1-2 Tablet(s) PO Q6 as needed No Start Date 05/09/2015 Inactive Medication Administered Medication Codes Instructions Start Date Status Kenalog 40 mg/mL suspension for injection RxNorm: 1124057 1.5Milliliter 03/18/2018 No longer Active Kenalog 40 mg/mL suspension for injection RxNorm: 4495534 1Milliliter 02/21/2018 No longer Active Kenalog 40 mg/mL suspension for injection RxNorm: 7543456 Milliliter 09/14/2016 No longer Active Kenalog 40 mg/mL suspension for injection RxNorm: 5158734 1.5Milliliter 07/24/2016 No longer Active Kenalog 40 mg/mL suspension for injection RxNorm: 5166341 Milliliter 01/24/2016 No longer Active Kenalog 40 mg/mL suspension for injection RxNorm: 6908681 1Milliliterdaily 07/26/2015 No longer Active Immunizations Vaccine [...] Code Item Item Code Result Date Carmen [id number] CARMEN (GAY) SCREEN NONE DETECTED 07/27/2018 Sed Rate Ord21 ESR 29 mm/hr 07/26/2018 C-Reactive Protein Qnt Crqnt CRP 5.8 mg/dl 07/25/2018 Ra Factor Qqj621 RA FACTOR <10 IU/ml 07/25/2018 Uric Acid Ord77 Uric A 5.2 mg/dL 07/25/2018 Comp Metabolic Ljc950 NA 137 mEq/L 07/25/2018 Comp Metabolic Hyb313 K 3.9 mEq/L 07/25/2018 Comp Metabolic Mlw844 CL 100 mEq/L 07/25/2018 Comp Metabolic Nek941 CO2 28.0 mEq/L 07/25/2018 Comp Metabolic Nme492 ANION GAP 13 07/25/2018 Comp Metabolic Mco727 GLUCOSE 93 mg/dL 07/25/2018 Comp Metabolic Dre919 Creat 0.8 mg/dL 07/25/2018 Comp Metabolic Tvb388 eGFR 102 ml/min/1.73m2 07/25/2018 Comp Metabolic Ttg201 BUN 26 mg/dL 07/25/2018 Comp Metabolic Njt336 B/C Ratio 33.3 Ratio 07/25/2018 Comp Metabolic Zap205 CALCIUM 9.5 mg/dL 07/25/2018 Comp Metabolic Bgg614 ALK PHOS 47 U/L 07/25/2018 Comp Metabolic Reg670 AST(SGOT) 22 U/L 07/25/2018 Comp Metabolic Xjb674 ALT(SGPT) 16 U/L 07/25/2018 Comp Metabolic Wqq891 BILI T 0.6 mg/dL 07/25/2018 Comp Metabolic Euk193 ALBUMIN 3.8 g/dL 07/25/2018 Comp Metabolic Lnn161 TPRO 5.9 g/dL 07/25/2018 Comp Metabolic Dgi005 GLOB 2.2 g/dL 07/25/2018 Comp Metabolic Uvg821 A/G Ratio 1.7 Ratio 07/25/2018 Comp Metabolic Jjb268 Osmo 278 mOsmo 07/25/2018 Cbc With Differential [...] 29.7 pg 07/25/2018 Cbc With Differential Ord2 [place]% 11.0 % 07/25/2018 Cbc With Differential Ord2 [...] 1.52 K/ul 07/25/2018 Cbc With Differential Ord2 [place] ABS# 1.2 K/ul 07/25/2018 Cbc With Differential [...] 29.4 pg 11/19/2017 Cbc With Differential Ord2 [place]% 13.9 % 11/19/2017 Cbc With Differential Ord2 [...] 2.07 K/ul 11/19/2017 Cbc With Differential Ord2 [place] ABS# 1.1 K/ul 11/19/2017 Cbc With Differential Ord2 Eos ABS# 0.2 K/ul 11/19/2017 Cbc With Differential Ord2 Baso ABS# 0.1 K/ul 11/19/2017 Tsh Ord6 TSH (3rd IS) 1.01 uIU/mL 11/19/2017 Comp Metabolic Cyg424 NA 140 mEq/L 11/19/2017 Comp Metabolic Emv500 K 3.8 mEq/L 11/19/2017 Comp Metabolic Avf128 CL 105 mEq/L 11/19/2017 Comp Metabolic Hjt381 CO2 30.0 mEq/L 11/19/2017 Comp Metabolic Wax407 ANION GAP 9 11/19/2017 Comp Metabolic Xmi241 GLUCOSE 91 mg/dL 11/19/2017 Comp Metabolic Rdw210 Creat 0.6 mg/dL 11/19/2017 Comp Metabolic Sna537 eGFR 133 ml/min/1.73m2 11/19/2017 Comp Metabolic Vry991 BUN 16 mg/dL 11/19/2017 Comp Metabolic Dth471 B/C Ratio 25.8 Ratio 11/19/2017 Comp Metabolic Ubl579 CALCIUM 9.6 mg/dL 11/19/2017 Comp Metabolic Syr218 ALK PHOS 46 U/L 11/19/2017 Comp Metabolic Lbh324 AST(SGOT) 17 U/L 11/19/2017 Comp Metabolic Zrt421 ALT(SGPT) 13 U/L 11/19/2017 Comp Metabolic Rmx618 BILI T 0.4 mg/dL 11/19/2017 Comp Metabolic Oub874 ALBUMIN 3.6 g/dL 11/19/2017 Comp Metabolic Ygy138 TPRO 5.9 g/dL 11/19/2017 Comp Metabolic Qdd934 GLOB 2.3 g/dL 11/19/2017 Comp Metabolic Gjv672 A/G Ratio 1.6 Ratio 11/19/2017 Comp Metabolic Eev559 Osmo 280 mOsmo 11/19/2017 Uric Acid Ord77 Uric A 5.5 mg/dL 08/08/2017 Urine Culture Ucult Preliminary NO Growth Day 1 11/27/2016 Urine Culture Ucult Complete NO Growth Day 2 11/27/2016 Vitamin D 25 Oh Cxa7662 VITAMIN D, 25 HYDROXY 28.69 ng/mL Total Psa Ord10 PSA 0.03 ng/mL 07/27/2016 Comp Metabolic Avx047 NA 138 mEq/L 07/27/2016 Comp Metabolic Jno839 K 4.1 mEq/L 07/27/2016 Comp Metabolic Iey325 CL 106 mEq/L 07/27/2016 Comp Metabolic Fiq562 CO2 26.0 mEq/L 07/27/2016 Comp Metabolic Ont559 ANION GAP 10 07/27/2016 Comp Metabolic Xkh943 GLUCOSE 102 mg/dL 07/27/2016 Comp Metabolic Rci349 Creat 0.7 mg/dL 07/27/2016 Comp Metabolic Txp684 eGFR 125 ml/min/1.73m2 07/27/2016 Comp Metabolic Fgv578 BUN 24 mg/dL 07/27/2016 Comp Metabolic Gql020 B/C Ratio 36.4 Ratio 07/27/2016 Comp Metabolic Zub682 CALCIUM 10.2 mg/dL 07/27/2016 Comp Metabolic Ljq678 ALK PHOS 41 U/L 07/27/2016 Comp Metabolic Fkh412 AST(SGOT) 17 U/L 07/27/2016 Comp Metabolic Xhn619 ALT(SGPT) 14 U/L 07/27/2016 Comp Metabolic Rdb145 BILI T 0.5 mg/dL 07/27/2016 Comp Metabolic Zch951 ALBUMIN 3.9 g/dL 07/27/2016 Comp Metabolic Uwz494 TPRO 6.3 g/dL 07/27/2016 Comp Metabolic Dyu961 GLOB 2.4 g/dL 07/27/2016 Comp Metabolic Oyg675 A/G Ratio 1.6 Ratio 07/27/2016 Comp Metabolic Kub356 Osmo 280 mOsmo 07/27/2016 Cbc With Differential [...] 29.3 pg 07/27/2016 Cbc With Differential Ord2 [place]% 10.1 % 07/27/2016 Cbc With Differential Ord2 [...] 1.79 K/ul 07/27/2016 Cbc With Differential Ord2 [place] ABS# 0.8 K/ul 07/27/2016 Cbc With Differential Ord2 Eos ABS# 0.1 K/ul 07/27/2016 Cbc With Differential Ord2 Baso ABS# 0.0 K/ul 07/27/2016 Tsh Ord6 hTSH II 1.21 uIU/mL 07/27/2016 Lipid Ord30 CHOL 184 mg/dL 07/27/2016 Lipid Ord30 HDL 53.0 mg/dl 07/27/2016 Lipid Ord30 TRIG 106 mg/dL 07/27/2016 Lipid Ord30 LDL 110 mg/dL 07/27/2016 Lipid Ord30 C/HDL 3.5 Ratio 07/27/2016 Comp Metabolic Yzf069 NA 137 mEq/L 07/26/2015 Comp Metabolic Ksp140 K 3.7 mEq/L 07/26/2015 Comp Metabolic Mjc476 CL 103 mEq/L 07/26/2015 Comp Metabolic Ilq845 CO2 26.0 mEq/L 07/26/2015 Comp Metabolic Fqu111 ANION GAP 12 07/26/2015 Comp Metabolic Yaz991 GLUCOSE 99 mg/dL 07/26/2015 Comp Metabolic Rxd756 Creat 0.8 mg/dL 07/26/2015 Comp Metabolic Pec556 eGFR 103 ml/min/1.73m2 07/26/2015 Comp Metabolic Ipj465 BUN 22 mg/dL 07/26/2015 Comp Metabolic Gdm445 B/C Ratio 28.2 Ratio 07/26/2015 Comp Metabolic Nwu318 CALCIUM 9.7 mg/dL 07/26/2015 Comp Metabolic Ycv097 ALK PHOS 40 U/L 07/26/2015 Comp Metabolic Lqe870 AST(SGOT) 26 U/L 07/26/2015 Comp Metabolic Fwy716 ALT(SGPT) 20 U/L 07/26/2015 Comp Metabolic Mim180 BILI T 0.5 mg/dL 07/26/2015 Comp Metabolic Osb100 ALBUMIN 3.9 g/dL 07/26/2015 Comp Metabolic Rtf415 TPRO 6.4 g/dL 07/26/2015 Comp Metabolic Xcv125 GLOB 2.5 g/dL 07/26/2015 Comp Metabolic Hzk045 A/G Ratio 1.6 Ratio 07/26/2015 Comp Metabolic Esw357 Osmo 277 mOsmo 07/26/2015 Tsh Ord6 hTSH [...] 0.01 ng/mL 07/26/2015 Vitamin D 25 Oh Ufc3964 VITAMIN D, 25 HYDROXY 31.47 ng/mL Review [...] CPT -4: G0439 08/05/2018 DRAIN/INJECT JOINT/BURSA CPT-4: 86270 03/18/2018 TRIAMCINOLONE ACET INJ NOS CPT-4: J3301 03/18/2018 THER/PROPH/DIAG INJ SC/IM CPT-4: 73145 02/21/2018 TRIAMCINOLONE ACET INJ NOS CPT-4: J3301 02/21/2018 PPPS, SUBSEQ VISIT CPT -4: G0439 05/22/2017 TRIAMCINOLONE ACET INJ NOS CPT-4: J3301 09/14/2016 TRIAMCINOLONE ACET INJ NOS CPT-4: J3301 07/24/2016 THER/PROPH/DIAG INJ SC/IM CPT-4: 83378 07/24/2016 TRIAMCINOLONE ACET INJ NOS CPT-4: J3301 01/24/2016 TRIAMCINOLONE ACET INJ NOS CPT-4: J3301 07/26/2015 THER/PROPH/DIAG INJ SC/IM CPT-4: 04029 07/26/2015 Vital Signs Date Vital 08/26/2018 Blood Pressure 1: 166/84 Code : 8480-6 Heart Rate 1: 80 bpm Height: 6'4" SpO2: 98% Temperature: 36.7 (C) / 98.1 (F) Weight: 08/05/2018 Blood Pressure 1: 118/64 Code : 8480-6 BMI: 26.2 Code : 88763-7 Heart Rate 1 : 66 bpm Height: 6'4" SpO2: 97% Waist Measure (cm): 81 cm Weight: 215 lbs 07/25/2018 Blood Pressure 1: 128/78 Code : 8480-6 BMI: 26.2 Code : 74413-9 Heart Rate 1 : 68 bpm Height: 6'4" SpO2: 95% Weight: 215 lbs 07/22/2018 Blood Pressure 1: 142/78 Code : 8480-6 BMI: 26.7 Code : 72077-0 Heart Rate 1 : 64 bpm Height: 6'4" SpO2: 99% Weight: 219 lbs 03/18/2018 Blood Pressure 1: 136/84 Code : 8480-6 BMI: 26.5 Code : 21023-0 Heart Rate 1 : 79 bpm Height: 6'4" SpO2: 99% Weight: 218 lbs 11/27/2017 Blood Pressure 1: 132/64 Code : 8480-6 BMI: 27.8 Code : 22344-0 Heart Rate 1 : 41 bpm Height: 6'4" SpO2: 97% Weight: 228 lbs 11/19/2017 Blood Pressure 1: 140/88 Code : 8480-6 Blood Pressure 1: 148/76 Code: 8480-6 BMI: 27.3 Code: 69854-9 Heart Rate 1: 58 bpm Height: 6'4" SpO2: 98% Weight: 224 lbs 08/08/2017 Blood Pressure 1: 130/80 Code : 8480-6 BMI: 26.5 Code : 09998-6 Heart Rate 1 : 71 bpm Height: 6'4" SpO2: 98% Weight: 218 lbs 05/22/2017 Blood Pressure 1: 142/78 Code : 8480-6 BMI: 28.0 Code : 34951-6 Heart Rate 1 : 77 bpm Height: 6'4" SpO2: 94% Waist Measure (cm): 91 cm Weight: 230 lbs 05/21/2017 Blood Pressure 1: 144/72 Code : 8480-6 BMI: 28.1 Code : 96607-6 Heart Rate 1 : 74 bpm Height: 6'4" SpO2: 95% Weight: 230 lbs 8 oz 11/23/2016 Blood Pressure 1: 136/74 Code : 8480-6 BMI: 29.9 Code : 63597-5 Heart Rate 1 : 59 bpm Height: 6'4" SpO2: 94% Weight: 246 lbs 11/20/2016 Blood Pressure 1: 130/80 Code : 8480-6 BMI: 29.9 Code : 35935-5 Heart Rate 1 : 75 bpm Height: 6'4" SpO2: 98% Weight: 246 lbs 11/10/2016 Blood Pressure 1: 140/82 Code : 8480-6 BMI: 29.7 Code : 34304-4 Heart Rate 1 : 64 bpm Height: 6'4" SpO2: 94% Weight: 244 lbs 09/14/2016 Blood Pressure 1: 130/82 Code : 8480-6 BMI: 27.4 Code : 81106-1 Heart Rate 1 : 74 bpm Height: 6'4" SpO2: 96% Weight: 225 lbs 07/24/2016 Blood Pressure 1: 128/78 Code : 8480-6 BMI: 27.4 Code : 89089-9 Heart Rate 1 : 78 bpm Height: 6'4" SpO2: 94% Weight: 225 lbs 01/24/2016 Blood Pressure 1: 124/88 Code : 8480-6 BMI: 29.5 Code : 85425-2 Heart Rate 1 : 68 bpm Height: 6'4" SpO2: 98% Weight: 242 lbs 07/26/2015 Blood Pressure 1: 150/82 Code : 8480-6 Blood Pressure 1: 138/82 Code: 8480-6 BMI: 29.9 Code: 97790-4 Heart Rate 1: 68 bpm Height: 6'4" SpO2: 94% Weight: 246 lbs 03/24/2015 Blood Pressure 1: 114/84 Code : 8480-6 BMI: 29.8 Code : 59032-8 Heart Rate 1 : 67 bpm Height: [...] abscess without bleeding[ICD10: K57.20] Lizz Hussein MD, [facility] CPT-4: 60868 08/26/2018 [id number] EST. PATIENT, LEVEL IV Diagnosis: Pain in left wrist[ICD10: M25.532] Diagnosis: Other malaise[ICD10: R53.81] Diagnosis: Other fatigue[ICD10: R53.83] Lizz Hussein MD, [facility] CPT-4 : 81798 07/25/2018 ([id number]) 45348 EST. PATIENT, LEVEL IV Diagnosis: Essential (primary) hypertension[ICD10: I10] Diagnosis: Chronic pain syndrome[ICD10: G89.4] Diagnosis: Low back pain[ICD10: M54.5] Beverly Hussein MD, [facility] CPT- 4: 46295 07/22/2018 ([id number]) 03743 EST. PATIENT, LEVEL III Diagnosis: Sacroiliitis, not elsewhere classified[ICD10: M46.1] Diagnosis: Spinal instabilities, sacral and sacrococcygeal region[ICD10: M53.2X8 ] Diagnosis: Essential (primary) hypertension[ICD10: I10] Diagnosis: Chronic pain syndrome[ICD10: G89.4] Beverly Hussein MD, [facility] CPT-4: 13006 03/18/2018 [id number] EST. PATIENT, LEVEL III Diagnosis: Pain in right knee[ICD10: M25.561] Lizz Hussein MD [facility] CPT-4: 70407 11/27/2017 ([id number]) 74147 EST. PATIENT, LEVEL IV Diagnosis: Essential (primary) hypertension[ICD10: I10] Diagnosis: Chronic pain syndrome[ICD10: G89.4] Diagnosis: Vitamin D deficiency, unspecified[ICD10: E55.9] Beverly Hussein MD, [facility] CPT-4: 65754 11/19/2017 ([id number]) 45224 EST. PATIENT, LEVEL III Diagnosis: Olecranon bursitis, right elbow[ICD10: M70.21] Beverly Hussein MD, [facility] CPT-4: 68334 08/08/2017 ([id number]) 43860 EST. PATIENT, LEVEL IV Diagnosis: Essential (primary) hypertension[ICD10: I10] Diagnosis: Low back pain[ICD10: M54.5] Beverly Hussein MD, [facility] CPT- 4: 10758 05/21/2017 [id number] EST. PATIENT, LEVEL III Diagnosis: Calculus of kidney[ICD10: N20.0] Lizz Hussein MD [facility] CPT- 4: 62119 11/23/2016 ([id number]) 76125 EST. PATIENT, LEVEL III Diagnosis: Essential (primary) hypertension[ICD10: I10] Beverly Hussein MD, [facility] CPT-4: 70514 11/20/2016 [id number] EST. PATIENT, LEVEL III Diagnosis: Nausea[ICD10: R11.0] Lizz Hussein MD, [facility] CPT-4: 48858 11/10/2016 ([id number]) 42228 EST. PATIENT, LEVEL III Diagnosis: Allergic rhinitis due to pollen[ICD10: J30.1] Diagnosis: Other benign neoplasm of skin of unspecified part of face[ICD10: D23.30] Kelsy Hussein MD, [facility] CPT-4: 94829 [id number]) [id number] EST. PATIENT, LEVEL IV Diagnosis: Essential (primary) hypertension[ICD10: I10] Diagnosis: Vitamin D deficiency, unspecified[ICD10: E55.9] Diagnosis: Low back pain[ICD10: M54.5] Diagnosis: Mild intermittent asthma with (acute) exacerbation[ICD10: J45.21] Kelsy Hussein MD, [facility] CPT-4: 67052 07/24/2016 ([id number]) 89613 EST. PATIENT, LEVEL IV Diagnosis: Essential (primary) hypertension[ICD10: I10] Diagnosis: Allergic rhinitis due to pollen[ICD10: J30.1] Diagnosis: Low back pain[ICD10: M54.5] Kelsy Hussein MD, [facility] CPT-4: 54019 01/24/2016 ([id number]) 35340 EST. PATIENT, LEVEL IV Diagnosis: Essential (primary) hypertension[ICD10: I10] Diagnosis: Vitamin D deficiency, unspecified[ICD10: E55.9] Diagnosis: Chronic pain syndrome[ICD10: G89.4] Diagnosis: Allergic rhinitis, unspecified[ICD10: J30.9] Kelsy Hussein MD, [facility] CPT-4: 27225 07/26/2015 ([id number]) OFFICE VISIT, NEW - LEVEL 4 Diagnosis: ESSENTIAL HYPERTENSION[ICD9: 401.9] Diagnosis: CHRONIC PAIN SYNDROME[ICD9: 338.4] Diagnosis: Skin change[ICD9: 782.9] Beverly Hussein MD, [facility] CPT-4: 13777 03/24/2015 Plan of Care Planned Activity Notes Codes Status Date Visit Plan: Diverticulitis with abscess - Dr. Hussein in to evaluate pt - pt's drain was in the closed position - upon opening the drain serosanguineous drainage and air began to drain and pt experienced some relief of symptoms - will send for CT to check for drain placement and pt is to follow up with Dr. Banuelos at 4PM today. 08/26/2018 Patient Education: Patient Medication Summary Completed 08/26/2018 Appointment: Kelsy Hsu WPtel: [phone] [phone] [place] (15 min) Moderate 08/19/2018 Appointment: Lizz Wilks [facility]el[phone] (15 min) Moderate 08/07/2018 Visit Plan: Medicare [...] care surrogate. 08/05/2018 Appointment: Lizz Wilks WPtel: [facility]5 [facility] [facility] - Annual Wellness Visit 08/05/2018 Patient [...] concerns. 07/25/2018 Appointment: Lizz Wilks WPtel[phone] (15 min) Moderate 07/25/2018 Patient Education: Patient [...] - 07/22/2018 App[facility]ment: [phone] [place] (15 min) Moderate 07/22/2018 Patient Education: [...] thereafter. 03/18/2018 Appointment: [phone] [place] (15 min) Moderate 03/18/2018 Patient Education: [...] improve. 11/27/2017 Appointment: Lizz Wilks WPtel: [phone] [facility] [place] (30 min) Complex 11/27/2017 Patient Education: Patient Medication Summary Completed 11/27/2017 Care Plan: X-RAY EXAM OF KNEE 3 [facility] : 08803-3 Pending 11/27/2017 Visit Plan: Hypertension -usually pt [...] current medications. 11/19/2017 Appointment: Beverly Hussein WPtel: [address] [place], [place] [id number] (15 min) Moderate 11/19/2017 Patient Education: Patient [...] care surrogate. 05/22/2017 Appointment: Kelsy Hsu WPtel: [phone] [facility] - Annual Wellness Visit 05/22/2017 Patient [...] into Yoga. 05/21/2017 Appointment: Beverly Hussein WPtel: [facility]4 [facility] (15 min) Moderate 05/21/2017 Patient Education: Patient Medication Summary Completed 05/21/2017 Patient Education: Hypertension Completed 05/21/2017 Care Plan[id number] Pending 12/17/2016 Visit Plan: Left flank pain - KUB shows renal caliculi - will refer to Dr. Robledo. Pt is to notify clinic with any changes or concerns. 11/23/2016 Appointment: Lizz Wilks WPtel: [facility] (15 min) Moderate 11/23/2016 Patient Education: Patient [...] right cheek 11/20/2016 Appointment: Beverly Hussein WPtel: [facility] (15 min) Moderate 11/20/2016 Patient Education: Patient [...] esophageal reflux. 11/10/2016 Appointment: Lizz Wilks WPtel: [address] [place], [place] [phone] (30 min) Complex 11/10/2016 Patient Education: Patient Medication Summary Completed 11/10/2016 Referral: Poncho Mock [address] Referral Completed 11/03/2016 Visit Plan: Cyst-right cheek-refer to Dr Mock for removal Uhowuvkza-mgvxku-cuzpwidjj symptoms-kenalog injection today in the office- samples of advair provided and instructed on use. 09/14/2016 Appointment: Kelsy Hsu WPtel: [address] [place], [place] [phone] (30 min) Complex 09/14/2016 Patient Education: Patient Medication Summary Completed 09/14/2016 Care Plan: Referral Order SNOMED-CT : [id number] Pending 09/14/2016 Visit Plan: Hypertension - well [...] prn use 07/24/2016 Appointment: Kelsy Hsu WPtel: [facility]5 [phone] [place] (15 min) Moderate 07/24/2016 Patient Education: Patient [...] spray. Kenalog injection today in the office Amrnq-Cpiity-tgndft to symbicort Low back pain-recommend stretches for [...] Patient Education: Hypertension Completed 03/24/2015 [facility] [place] [facility] App[facility] Requested Instructions Comment . Olecranon [...] spray. Kenalog injection today in the office Nwkvp-Yxsmha-fzvqzf to symbicort Low back pain-recommend stretches for [...] Cyst-right cheek-refer to Dr Mock for removal Gcwsvznmg-mgqflm-sfibnkuiw symptoms-kenalog injection today in the office- samples [...]
--- OUTSIDE RECORDS SUMMARY | 2018-10-09 14:33 | XMS REPORT | CCD ---
Author Author [facility] Organization [facility] Address [address] [place] [address] Phone Care Team Providers Care Human Resources File Clerk Name Role Phone PP Unavailable CCM Unavailable Summary Purpose Interface Exchange Insurance Providers Payer name Policy type / Coverage type Covered democrat ID Effective Begin Date Effective End Date WPS Medicare Part B Medicare Part B [id number] 2015 Unknown AARP Medicare Part B [id number] 2015 Unknown Family history Mother Diagnosis Age At Onset Dementia Unknown Father Diagnosis Age At Onset lung cancer Unknown Social History Social History Element Codes Description Effective Dates Marital status Unknown Michelle 03/24/2015 Number of children Unknown 3 03/24/2015 Employment Unknown Retired 03/24/[address]: 793559739 Never smoker 03/24/[address]: 111139065 Never drinks alcohol 03/24/2015 Allergies, Adverse Reactions, [...] Start Date Stop Date Status Fill Instructions gabapentin 100 mg capsule RxNorm: 329763 1 Capsule(s) PO TID , if not having improvement in sam after 5 day, may increase up to two pills three times daily 08/22/2018 11/19/2018 Active morphine ER 15 mg tablet,extended release RxNorm: 592370 1 Tablet(s) PO BID 08/22/2018 09/20/2018 Active Zofran ODT 4 mg disintegrating tablet RxNorm: 744072 1 Tablet(s) PO TID 07/25/2018 07/29/2018 Inactive prednisone 20 mg tablet RxNorm: 276559 Tablet(s) PO 07/25/2018 08/21/2018 Inactive 60 ,60,40,40,20,20 morphine ER 15 mg tablet,extended release RxNorm: 269292 1 Tablet(s) PO BID 07/22/2018 08/20/2018 Inactive gabapentin 100 mg capsule RxNorm: 397683 1 Capsule(s) PO TID , if not having improvement in sam after 5 day, may increase up to two pills three times daily 07/22/2018 08/20/2018 Inactive ProAir HFA 90 mcg/actuation aerosol inhaler RxNorm: 899612 USE 1 TO 2 PUFFS EVERY 4 TO 6 HOURS NEEDED 07/02/20182018 Active 3 * 8.5 GM=25.5 GM Total - Ref : [id number] hydrocodone 10 mg-acetaminophen 325 mg tablet RxNorm: 121503 1-2 Tablet(s) PO Q6 as needed for pain 06/20/2018 07/04/2018 Inactive hydrocodone 10 mg-acetaminophen 325 mg tablet RxNorm: 801297 1-2 Tablet(s) PO Q6 as needed for pain 05/20/2018 06/03/2018 Inactive hydrocodone 10 mg-acetaminophen 325 mg tablet RxNorm: 693955 1-2 Tablet(s) PO Q6 as needed for pain 04/17/2018 05/01/2018 Inactive Kenalog 40 mg/mL suspension for injection RxNorm: 9547141 1.5 Milliliter(s) Inj 03/18/2018 03/18/2018 Inactive hydrocodone 10 mg-acetaminophen 325 mg tablet RxNorm: 201018 1-2 Tablet(s) PO Q6 as needed for pain 03/18/2018 04/01/2018 Inactive prednisone 20 mg tablet RxNorm: 030194 1 Tablet(s) PO daily 03/22/2018 Inactive prednisone 10 mg tablet RxNorm: 212233 TAKE 1 TABLET BY MOUTH DAILY 03/11/2018 06/03/2019 Active - Ref: [id number] Kenalog 40 mg/mL suspension for injection RxNorm: 3129341 1 Milliliter(s) Inj 02/21/2018 02/21/2018 Inactive hydrocodone 10 mg-acetaminophen 325 mg tablet RxNorm: 059685 1-2 Tablet(s) PO Q6 as needed for pain 02/20/2018 03/06/2018 Inactive hydrocodone 10 mg-acetaminophen 325 mg tablet RxNorm: 071706 1-2 Tablet(s) PO Q6 as needed for pain 01/23/2018 02/06/2018 Inactive hydrocodone 10 mg-acetaminophen 325 mg tablet RxNorm: 365137 1-2 Tablet(s) PO Q6 as needed for pain 12/25/2017 01/08/2018 Inactive doxycycline hyclate 100 mg capsule RxNorm: 3782233 1 Capsule(s) PO BID 11/29/2017 12/08/2017 Inactive doxycycline hyclate 100 mg capsule RxNorm: 1864681 1 Capsule(s) PO BID 11/29/2017 11/28/2017 Inactive hydrocodone 10 mg-acetaminophen 325 mg tablet RxNorm: 915826 1-2 Tablet(s) PO Q6 as needed for pain 11/01/2017 11/15/2017 Inactive hydrocodone 10 mg-acetaminophen 325 mg tablet RxNorm: 558399 1-2 Tablet(s) PO Q6 as needed for pain 10/03/2017 10/17/2017 Inactive ProAir HFA 90 mcg/actuation aerosol inhaler RxNorm: 035142 USE 1 TO 2 PUFFS EVERY 4 TO 6 HOURS NEEDED 09/28/20172017 Inactive 3 * 8.5 GM=25.5 GM Total - Ref: [id number] hydrocodone 10 mg-acetaminophen 325 mg tablet RxNorm: 707498 1-2 Tablet(s) PO Q6 as needed for pain 08/30/2017 09/13/2017 Inactive Benicar 20 mg tablet RxNorm: 359075 Tablet(s) TAKE 1 TABLET BY MOUTH DAILY 08/20/2017 08/14/2018 Inactive Benicar 20 mg tablet RxNorm: 233705 TAKE 1 TABLET BY MOUTH DAILY 08/15/2017 08/19/2017 Inactive - Ref: [id number] azithromycin 250 mg tablet RxNorm: 599975 1 Tablet(s) PO UD two tabs on day #1, the one tab daily x 4 doses 08/07/2017 Inactive hydrocodone 10 mg-acetaminophen 325 mg tablet RxNorm: 173114 1-2 Tablet(s) PO Q6 as needed for pain 07/31/2017 08/14/2017 Inactive prednisone 10 mg tablet RxNorm: 595983 TAKE 1 TABLET BY MOUTH DAILY 07/30/2017 01/25/2018 Inactive - Ref: [id number] hydrocodone 10 mg-acetaminophen 325 mg tablet RxNorm: 712551 1-2 Tablet(s) PO Q6 as needed for pain 06/29/2017 07/13/2017 Inactive ProAir HFA 90 mcg/actuation aerosol inhaler RxNorm: 987639 INHALE ONE TO TWO PUFFS BY MOUTH EVERY 4 TO 6 HOURS NEEDED 06/04/2017 07/21/2017 Inactive hydrocodone 10 mg-acetaminophen 325 mg tablet RxNorm: 781943 1-2 1 Tablet(s) PO Q6 as needed for pain 05/22/20172016 Inactive hydrocodone 10 mg-acetaminophen 325 mg tablet RxNorm: 650580 1-2 1 Tablet(s) PO Q6 as needed for pain 04/30/20172016 Inactive hydrocodone 10 mg-acetaminophen 325 mg tablet RxNorm: 580078 1-2 Tablet(s) PO Q6 as needed for pain 03/30/2017 04/13/2017 Inactive Benicar 20 mg tablet RxNorm: 982935 Take 1 tablet by mouth daily 03/22/2017 08/14/2017 Inactive - First Attempt Ref: [id number] hydrocodone 10 mg-acetaminophen 325 mg tablet RxNorm: 205189 1-2 Tablet(s) PO Q6 as needed for pain 03/01/2017 03/15/2017 Inactive Advair Diskus 250 mcg-50 mcg/dose powder for inhalation RxNorm: 6421253 1 INH daily 02/09/2017 02/03/2018 Inactive prednisone 10 mg tablet RxNorm: 159854 Take 1 tablet by mouth daily 02/01/2017 07/29/2017 Inactive - Ref: [id number] hydrocodone 10 mg-acetaminophen 325 mg tablet RxNorm: 248657 1-2 Tablet(s) PO Q6 as needed for pain 02/01/2017 02/15/2017 Inactive hydrocodone 10 mg-acetaminophen 325 mg tablet RxNorm: 067406 1-2 Tablet(s) PO Q6 as needed for pain 01/03/2017 01/17/2017 Inactive hydrocodone 10 mg-acetaminophen 325 mg tablet RxNorm: 925940 1-2 Tablet(s) PO Q6 as needed for pain 12/11/2016 12/25/2016 Inactive prednisone 10 mg tablet RxNorm: 238363 1 Tablet(s) 1 Tablet(s) PO daily 11/10/2016 01/31/2017 Inactive Zofran 4 mg tablet RxNorm: 053874 1 Tablet(s) PO TID 201611/14/2016 Inactive hydrocodone 10 mg-acetaminophen 325 mg tablet RxNorm: 916858 1-2 Tablet(s) PO Q6 as needed for pain 10/31/2016 11/14/2016 Inactive prednisone 10 mg tablet RxNorm: 845192 Take 1 tablet by mouth daily 10/23/2016 03/17/2018 Inactive - Ref: [id number] Advair Diskus 250 mcg-50 mcg/dose powder for inhalation RxNorm: 2567596 1 INH daily 10/13/2016 01/10/2017 Inactive Kenalog 40 mg/mL suspension for injection RxNorm: 1696079 Milliliter(s) Inj 09/14/2016 09/14/2016 Inactive hydrocodone 10 mg-acetaminophen 325 mg tablet RxNorm: 401881 1-2 Tablet(s) PO Q6 as needed for pain 09/11/2016 09/25/2016 Inactive Benicar 20 mg tablet RxNorm: 120491 Take 1 tablet by mouth daily 09/04/2016 03/02/2017 Inactive - First Attempt Ref: [id number] prednisone 10 mg tablet RxNorm: 871666 1 Tablet(s) 1 Tablet(s) PO daily 08/28/2016 10/22/2016 Inactive Vitamin D2 50,000 unit capsule RxNorm: 787663 1 Capsule(s) PO QW 07/28/2016 05/20/2017 Inactive Kenalog 40 mg/mL suspension for injection RxNorm: 0313099 1.5 Milliliter(s) Inj 07/24/2016 07/24/2016 Inactive hydrocodone 10 mg-acetaminophen 325 mg tablet RxNorm: 377134 1-2 Tablet(s) PO Q6 as needed 07/24/2016 09/10/2016 Inactive hydrocodone 10 mg-acetaminophen 325 mg tablet RxNorm: 754304 1-2 Tablet(s) PO Q6 as needed 06/21/2016 07/05/2016 Inactive ProAir HFA 90 mcg/actuation aerosol inhaler RxNorm: 219034 INHALE ONE TO TWO PUFFS BY MOUTH EVERY 4 TO 6 HOURS NEEDED 06/14/2016 07/17/2016 Inactive prednisone 10 mg tablet RxNorm: 662052 Tablet(s) 1 Tablet(s) PO daily 06/14/2016 08/27/2016 Inactive prednisone 10 mg tablet RxNorm: 266208 1 Tablet(s) PO daily 06/13/2016 Inactive ProAir HFA 90 mcg/actuation aerosol inhaler RxNorm: 632030 INHALE ONE TO TWO PUFFS BY MOUTH EVERY 4 TO 6 HOURS NEEDED 06/13/2016 06/13/2016 Inactive hydrocodone 10 mg-acetaminophen 325 mg tablet RxNorm: 854323 1-2 Tablet(s) PO Q6 as needed 05/15/2016 05/29/2016 Inactive hydrocodone 10 mg-acetaminophen 325 mg tablet RxNorm: 828850 1-2 Tablet(s) PO Q6 as needed 04/17/2016 05/01/2016 Inactive Benicar 20 mg tablet RxNorm: 936416 TAKE ONE TABLET BY MOUTH ONCE DAILY 04/13/2016 09/03/2016 Inactive prednisone 10 mg tablet RxNorm: 077623 1 Tablet(s) PO daily 06/12/2016 Inactive hydrocodone 10 mg-acetaminophen 325 mg tablet RxNorm: 977548 1-2 Tablet(s) PO Q6 as needed 03/07/2016 05/14/2016 Inactive hydrocodone 10 mg-acetaminophen 325 mg tablet RxNorm: 526340 1-2 Tablet(s) PO Q6 as needed 03/07/2016 04/16/2016 Inactive Kenalog 40 mg/mL suspension for injection RxNorm: 0480474 Milliliter(s) Inj 01/24/2016 01/24/2016 Inactive hydrocodone 10 mg-acetaminophen 325 mg tablet RxNorm: 586414 1-2 Tablet(s) PO Q6 as needed 01/19/2016 03/06/2016 Inactive hydrocodone 10 mg-acetaminophen 325 mg tablet RxNorm: 230017 1-2 Tablet(s) PO Q6 as needed 11/30/2015 01/18/2016 Inactive hydrocodone 10 mg-acetaminophen 325 mg tablet RxNorm: 180909 1-2 Tablet(s) PO Q6 as needed 09/22/2015 11/29/2015 Inactive prednisone 10 mg tablet RxNorm: 364080 1 Tablet(s) PO daily 11/10/2015 Inactive Vitamin D2 50,000 unit capsule RxNorm: 045871 1 Capsule(s) PO QW 07/28/2015 07/27/2016 Inactive vitamin d 2000 QD Advair Diskus 250 mcg-50 mcg/dose powder for inhalation RxNorm: 8658955 1 INH daily 07/26/2015 08/24/2015 Inactive ProAir HFA 90 mcg/actuation aerosol inhaler RxNorm: 845341 1-2 Puff(s) INH Q4-6H as needed 07/26/2015 11/22/2015 Inactive Kenalog 40 mg/mL suspension for injection RxNorm: 1554152 1 Milliliter(s) Inj daily 07/26/2015 07/26/2015 Inactive hydrocodone 10 mg-acetaminophen 325 mg tablet RxNorm: 504081 1-2 Tablet(s) PO Q6 as needed 07/15/2015 09/21/2015 Inactive prednisone 10 mg tablet RxNorm: 374402 1 Tablet(s) PO daily 11/201408/12/2015 Inactive hydrocodone 10 mg-acetaminophen 325 mg tablet RxNorm: 928028 1-2 Tablet(s) PO Q6 as needed 05/10/2015 07/14/2015 Inactive Benicar 20 mg tablet RxNorm: 383725 1 Tablet(s) PO daily 201403/30/2016 Inactive Vitamin D2 50,000 unit capsule RxNorm: 936785 1 Capsule(s) PO QW 03/25/2015 07/27/2015 Inactive vitamin d 2000 QD fluorouracil 5 % topical cream RxNorm: 633121 1 TOP daily 03/2404/22/2015 Inactive fluorouracil 5 % topical cream RxNorm: 181179 1 TOP daily 03/2403/23/2015 Inactive Efudex 5 % topical cream RxNorm: 595709 1 Application TOP BID to affected skin x 10 days. Let heal and may reapply 03/24/2015 04/22/2015 Inactive ProAir HFA 90 mcg/actuation aerosol inhaler RxNorm: 2729401 1-2 Puff(s) INH Q4-6H as needed 02/18/2015 02/17/2015 Inactive ProAir HFA 90 mcg/actuation aerosol inhaler RxNorm: 8955297 1-2 Puff(s) INH Q4-6H as needed 02/18/2015 06/17/2015 Inactive Vitamin D3 2,000 unit tablet RxNorm: 813247 1 Tablet(s) PO daily No Start Date 05/20/2017 Inactive Benicar 20 mg tablet RxNorm: 399952 1 Tablet(s) PO daily No Start Date 04/05/2015 Inactive Advair Diskus 250 mcg-50 mcg/dose powder for inhalation RxNorm: 4047699 1 INH daily No Start Date 07/25/2015 Inactive Vitamin D2 50,000 unit capsule RxNorm: 097589 1 Capsule(s) PO QW No Start Date 03/24/2015 Inactive vitamin d 2000 QD prednisone 10 mg tablet RxNorm: 367194 1 Tablet(s) PO daily No Start Date 05/26/2015 Inactive azithromycin 250 mg tablet RxNorm: 009092 1 Tablet(s) PO UD two tabs on day #1, the one tab daily x 4 doses No Start Date 08/06/2017 Inactive hydrocodone 10 mg-acetaminophen 325 mg tablet RxNorm: 941993 1-2 Tablet(s) PO Q6 as needed No Start Date 05/09/2015 Inactive Medication Administered Medication Codes Instructions Start Date Status Kenalog 40 mg/mL suspension for injection RxNorm: 0070218 1.5Milliliter 03/18/2018 No longer Active Kenalog 40 mg/mL suspension for injection RxNorm: 0531601 1Milliliter 02/21/2018 No longer Active Kenalog 40 mg/mL suspension for injection RxNorm: 1286361 Milliliter 09/14/2016 No longer Active Kenalog 40 mg/mL suspension for injection RxNorm: 3321962 1.5Milliliter 07/24/2016 No longer Active Kenalog 40 mg/mL suspension for injection RxNorm: 4319600 Milliliter 01/24/2016 No longer Active Kenalog 40 mg/mL suspension for injection RxNorm: 4570260 1Milliliterdaily 07/26/2015 No longer Active Immunizations Vaccine [...] Code Item Item Code Result Date Carmen 525798 CARMEN (GAY) SCREEN NONE DETECTED 07/27/2018 Sed Rate Ord21 ESR 29 mm/hr 07/26/2018 C-Reactive Protein Qnt Crqnt CRP 5.8 mg/dl 07/25/2018 Ra Factor Fgv782 RA FACTOR <10 IU/ml 07/25/2018 Uric Acid Ord77 Uric A 5.2 mg/dL 07/25/2018 Comp Metabolic Egf266 NA 137 mEq/L 07/25/2018 Comp Metabolic Lut115 K 3.9 mEq/L 07/25/2018 Comp Metabolic Fvv902 CL 100 mEq/L 07/25/2018 Comp Metabolic Lta991 CO2 28.0 mEq/L 07/25/2018 Comp Metabolic Hik217 ANION GAP 13 07/25/2018 Comp Metabolic Tdq925 GLUCOSE 93 mg/dL 07/25/2018 Comp Metabolic Qov779 Creat 0.8 mg/dL 07/25/2018 Comp Metabolic Fku615 eGFR 102 ml/min/1.73m2 07/25/2018 Comp Metabolic Xjh632 BUN 26 mg/dL 07/25/2018 Comp Metabolic Xhe916 B/C Ratio 33.3 Ratio 07/25/2018 Comp Metabolic Fkc136 CALCIUM 9.5 mg/dL 07/25/2018 Comp Metabolic Roq377 ALK PHOS 47 U/L 07/25/2018 Comp Metabolic Rup228 AST(SGOT) 22 U/L 07/25/2018 Comp Metabolic Wrj075 ALT(SGPT) 16 U/L 07/25/2018 Comp Metabolic Sbg241 BILI T 0.6 mg/dL 07/25/2018 Comp Metabolic Uor332 ALBUMIN 3.8 g/dL 07/25/2018 Comp Metabolic Dnk945 TPRO 5.9 g/dL 07/25/2018 Comp Metabolic Fow024 GLOB 2.2 g/dL 07/25/2018 Comp Metabolic Hhy284 A/G Ratio 1.7 Ratio 07/25/2018 Comp Metabolic Ucq710 Osmo 278 mOsmo 07/25/2018 Cbc With Differential [...] 29.7 pg 07/25/2018 Cbc With Differential Ord2 [place]% 11.0 % 07/25/2018 Cbc With Differential Ord2 [...] 1.52 K/ul 07/25/2018 Cbc With Differential Ord2 [place] ABS# 1.2 K/ul 07/25/2018 Cbc With Differential [...] 29.4 pg 11/19/2017 Cbc With Differential Ord2 [place]% 13.9 % 11/19/2017 Cbc With Differential Ord2 [...] 2.07 K/ul 11/19/2017 Cbc With Differential Ord2 [place] ABS# 1.1 K/ul 11/19/2017 Cbc With Differential Ord2 Eos ABS# 0.2 K/ul 11/19/2017 Cbc With Differential Ord2 Baso ABS# 0.1 K/ul 11/19/2017 Tsh Ord6 TSH (3rd IS) 1.01 uIU/mL 11/19/2017 Comp Metabolic Vgb362 NA 140 mEq/L 11/19/2017 Comp Metabolic Luj740 K 3.8 mEq/L 11/19/2017 Comp Metabolic Key816 CL 105 mEq/L 11/19/2017 Comp Metabolic Thv893 CO2 30.0 mEq/L 11/19/2017 Comp Metabolic Lqn847 ANION GAP 9 11/19/2017 Comp Metabolic Vst995 GLUCOSE 91 mg/dL 11/19/2017 Comp Metabolic Eqj008 Creat 0.6 mg/dL 11/19/2017 Comp Metabolic Lrb136 eGFR 133 ml/min/1.73m2 11/19/2017 Comp Metabolic Mwo154 BUN 16 mg/dL 11/19/2017 Comp Metabolic Jem577 B/C Ratio 25.8 Ratio 11/19/2017 Comp Metabolic Esr899 CALCIUM 9.6 mg/dL 11/19/2017 Comp Metabolic Sjb563 ALK PHOS 46 U/L 11/19/2017 Comp Metabolic Rfh878 AST(SGOT) 17 U/L 11/19/2017 Comp Metabolic Udh429 ALT(SGPT) 13 U/L 11/19/2017 Comp Metabolic Rfo505 BILI T 0.4 mg/dL 11/19/2017 Comp Metabolic Cvd186 ALBUMIN 3.6 g/dL 11/19/2017 Comp Metabolic Pbu322 TPRO 5.9 g/dL 11/19/2017 Comp Metabolic Ypd093 GLOB 2.3 g/dL 11/19/2017 Comp Metabolic Gpo968 A/G Ratio 1.6 Ratio 11/19/2017 Comp Metabolic Tbz766 Osmo 280 mOsmo 11/19/2017 Uric Acid Ord77 Uric A 5.5 mg/dL 08/08/2017 Urine Culture Ucult Preliminary NO Growth Day 1 11/27/2016 Urine Culture Ucult Complete NO Growth Day 2 11/27/2016 Vitamin D 25 Oh Roj1896 VITAMIN D, 25 HYDROXY 28.69 ng/mL Total Psa Ord10 PSA 0.03 ng/mL 07/27/2016 Comp Metabolic Utr394 NA 138 mEq/L 07/27/2016 Comp Metabolic Ltn285 K 4.1 mEq/L 07/27/2016 Comp Metabolic Mgo095 CL 106 mEq/L 07/27/2016 Comp Metabolic Hsi148 CO2 26.0 mEq/L 07/27/2016 Comp Metabolic Wgg155 ANION GAP 10 07/27/2016 Comp Metabolic Ims013 GLUCOSE 102 mg/dL 07/27/2016 Comp Metabolic Pyg181 Creat 0.7 mg/dL 07/27/2016 Comp Metabolic Lcz051 eGFR 125 ml/min/1.73m2 07/27/2016 Comp Metabolic Ard379 BUN 24 mg/dL 07/27/2016 Comp Metabolic Yzl450 B/C Ratio 36.4 Ratio 07/27/2016 Comp Metabolic Mpj996 CALCIUM 10.2 mg/dL 07/27/2016 Comp Metabolic Ihj931 ALK PHOS 41 U/L 07/27/2016 Comp Metabolic Ogf033 AST(SGOT) 17 U/L 07/27/2016 Comp Metabolic Onz754 ALT(SGPT) 14 U/L 07/27/2016 Comp Metabolic Alt442 BILI T 0.5 mg/dL 07/27/2016 Comp Metabolic Lhz572 ALBUMIN 3.9 g/dL 07/27/2016 Comp Metabolic Kzo611 TPRO 6.3 g/dL 07/27/2016 Comp Metabolic Ibx562 GLOB 2.4 g/dL 07/27/2016 Comp Metabolic Uhn861 A/G Ratio 1.6 Ratio 07/27/2016 Comp Metabolic Kvg713 Osmo 280 mOsmo 07/27/2016 Cbc With Differential [...] 29.3 pg 07/27/2016 Cbc With Differential Ord2 [place]% 10.1 % 07/27/2016 Cbc With Differential Ord2 [...] 1.79 K/ul 07/27/2016 Cbc With Differential Ord2 [place] ABS# 0.8 K/ul 07/27/2016 Cbc With Differential Ord2 Eos ABS# 0.1 K/ul 07/27/2016 Cbc With Differential Ord2 Baso ABS# 0.0 K/ul 07/27/2016 Tsh Ord6 hTSH II 1.21 uIU/mL 07/27/2016 Lipid Ord30 CHOL 184 mg/dL 07/27/2016 Lipid Ord30 HDL 53.0 mg/dl 07/27/2016 Lipid Ord30 TRIG 106 mg/dL 07/27/2016 Lipid Ord30 LDL 110 mg/dL 07/27/2016 Lipid Ord30 C/HDL 3.5 Ratio 07/27/2016 Comp Metabolic Qbk461 NA 137 mEq/L 07/26/2015 Comp Metabolic Kij863 K 3.7 mEq/L 07/26/2015 Comp Metabolic Ote969 CL 103 mEq/L 07/26/2015 Comp Metabolic Lbi645 CO2 26.0 mEq/L 07/26/2015 Comp Metabolic Flx086 ANION GAP 12 07/26/2015 Comp Metabolic Rro828 GLUCOSE 99 mg/dL 07/26/2015 Comp Metabolic Vtg889 Creat 0.8 mg/dL 07/26/2015 Comp Metabolic Wms825 eGFR 103 ml/min/1.73m2 07/26/2015 Comp Metabolic Eig319 BUN 22 mg/dL 07/26/2015 Comp Metabolic Xoa253 B/C Ratio 28.2 Ratio 07/26/2015 Comp Metabolic Kmo520 CALCIUM 9.7 mg/dL 07/26/2015 Comp Metabolic Dmr749 ALK PHOS 40 U/L 07/26/2015 Comp Metabolic Ejk131 AST(SGOT) 26 U/L 07/26/2015 Comp Metabolic Umq520 ALT(SGPT) 20 U/L 07/26/2015 Comp Metabolic Npk978 BILI T 0.5 mg/dL 07/26/2015 Comp Metabolic Wye410 ALBUMIN 3.9 g/dL 07/26/2015 Comp Metabolic Hoq154 TPRO 6.4 g/dL 07/26/2015 Comp Metabolic Wcm932 GLOB 2.5 g/dL 07/26/2015 Comp Metabolic Cre622 A/G Ratio 1.6 Ratio 07/26/2015 Comp Metabolic Nec470 Osmo 277 mOsmo 07/26/2015 Tsh Ord6 hTSH [...] 0.01 ng/mL 07/26/2015 Vitamin D 25 Oh Jgk6002 VITAMIN D, 25 HYDROXY 31.47 ng/mL Review [...] clear 05/21/2017 None Full Exam - General 1995 Ears/Nose/Throat oral cavity/pharynx/larynx Overall: oropharyngeal mucosa clear [...] CPT -4: G0439 08/05/2018 DRAIN/INJECT JOINT/BURSA CPT-4: 65432 03/18/2018 TRIAMCINOLONE ACET INJ NOS CPT-4: J3301 03/18/2018 THER/PROPH/DIAG INJ SC/IM CPT-4: 39174 02/21/2018 TRIAMCINOLONE ACET INJ NOS CPT-4: J3301 02/21/2018 PPPS, SUBSEQ VISIT CPT -4: G0439 05/22/2017 TRIAMCINOLONE ACET INJ NOS CPT-4: J3301 09/14/2016 TRIAMCINOLONE ACET INJ NOS CPT-4: J3301 07/24/2016 THER/PROPH/DIAG INJ SC/IM CPT-4: 99713 07/24/2016 TRIAMCINOLONE ACET INJ NOS CPT-4: J3301 01/24/2016 TRIAMCINOLONE ACET INJ NOS CPT-4: J3301 07/26/2015 THER/PROPH/DIAG INJ SC/IM CPT-4: 34086 07/26/2015 Vital Signs Date Vital 08/26/2018 Blood Pressure 1: 166/84 Code : 8480-6 Heart Rate 1: 80 bpm Height: 6'4" SpO2: 98% Temperature: 36.7 (C) / 98.1 (F) Weight: 08/05/2018 Blood Pressure 1: 118/64 Code : 8480-6 BMI: 26.2 Code : 99774-2 Heart Rate 1 : 66 bpm Height: 6'4" SpO2: 97% Waist Measure (cm): 81 cm Weight: 215 lbs 07/25/2018 Blood Pressure 1: 128/78 Code : 8480-6 BMI: 26.2 Code : 17620-4 Heart Rate 1 : 68 bpm Height: 6'4" SpO2: 95% Weight: 215 lbs 07/22/2018 Blood Pressure 1: 142/78 Code : 8480-6 BMI: 26.7 Code : 73713-7 Heart Rate 1 : 64 bpm Height: 6'4" SpO2: 99% Weight: 219 lbs 03/18/2018 Blood Pressure 1: 136/84 Code : 8480-6 BMI: 26.5 Code : 48341-8 Heart Rate 1 : 79 bpm Height: 6'4" SpO2: 99% Weight: 218 lbs 11/27/2017 Blood Pressure 1: 132/64 Code : 8480-6 BMI: 27.8 Code : 85357-0 Heart Rate 1 : 41 bpm Height: 6'4" SpO2: 97% Weight: 228 lbs 11/19/2017 Blood Pressure 1: 140/88 Code : 8480-6 Blood Pressure 1: 148/76 Code: 8480-6 BMI: 27.3 Code: 41073-2 Heart Rate 1: 58 bpm Height: 6'4" SpO2: 98% Weight: 224 lbs 08/08/2017 Blood Pressure 1: 130/80 Code : 8480-6 BMI: 26.5 Code : 27633-1 Heart Rate 1 : 71 bpm Height: 6'4" SpO2: 98% Weight: 218 lbs 05/22/2017 Blood Pressure 1: 142/78 Code : 8480-6 BMI: 28.0 Code : 56216-5 Heart Rate 1 : 77 bpm Height: 6'4" SpO2: 94% Waist Measure (cm): 91 cm Weight: 230 lbs 05/21/2017 Blood Pressure 1: 144/72 Code : 8480-6 BMI: 28.1 Code : 76940-6 Heart Rate 1 : 74 bpm Height: 6'4" SpO2: 95% Weight: 230 lbs 8 oz 11/23/2016 Blood Pressure 1: 136/74 Code : 8480-6 BMI: 29.9 Code : 60144-9 Heart Rate 1 : 59 bpm Height: 6'4" SpO2: 94% Weight: 246 lbs 11/20/2016 Blood Pressure 1: 130/80 Code : 8480-6 BMI: 29.9 Code : 22250-0 Heart Rate 1 : 75 bpm Height: 6'4" SpO2: 98% Weight: 246 lbs 11/10/2016 Blood Pressure 1: 140/82 Code : 8480-6 BMI: 29.7 Code : 23095-3 Heart Rate 1 : 64 bpm Height: 6'4" SpO2: 94% Weight: 244 lbs 09/14/2016 Blood Pressure 1: 130/82 Code : 8480-6 BMI: 27.4 Code : 33771-7 Heart Rate 1 : 74 bpm Height: 6'4" SpO2: 96% Weight: 225 lbs 07/24/2016 Blood Pressure 1: 128/78 Code : 8480-6 BMI: 27.4 Code : 91731-8 Heart Rate 1 : 78 bpm Height: 6'4" SpO2: 94% Weight: 225 lbs 01/24/2016 Blood Pressure 1: 124/88 Code : 8480-6 BMI: 29.5 Code : 33834-9 Heart Rate 1 : 68 bpm Height: 6'4" SpO2: 98% Weight: 242 lbs 07/26/2015 Blood Pressure 1: 150/82 Code : 8480-6 Blood Pressure 1: 138/82 Code: 8480-6 BMI: 29.9 Code: 25105-7 Heart Rate 1: 68 bpm Height: 6'4" SpO2: 94% Weight: 246 lbs 03/24/2015 Blood Pressure 1: 114/84 Code : 8480-6 BMI: 29.8 Code : 69478-3 Heart Rate 1 : 67 bpm Height: [...] data Encounters Encounter Performer Location Codes Date 98010 EST. PATIENT, LEVEL III Diagnosis: Diverticulitis of large intestine with perforation and abscess without bleeding[ICD10: K57.20] Lizz Hussein MD, [facility] CPT-4: 70541 08/26/2018 [id number] EST. PATIENT, LEVEL IV Diagnosis: Pain in left wrist[ICD10: M25.532] Diagnosis: Other malaise[ICD10: R53.81] Diagnosis: Other fatigue[ICD10: R53.83] Lizz Hussein MD, [facility] CPT-4 : 27913 07/25/2018 ([id number]) 37890 EST. PATIENT, LEVEL IV Diagnosis: Essential (primary) hypertension[ICD10: I10] Diagnosis: Chronic pain syndrome[ICD10: G89.4] Diagnosis: Low back pain[ICD10: M54.5] Beverly Hussein MD, [facility] CPT- 4: 29968 07/22/2018 ([id number]) [id number] EST. PATIENT, LEVEL III Diagnosis: Sacroiliitis, not elsewhere classified[ICD10: M46.1] Diagnosis: Spinal instabilities, sacral and sacrococcygeal region[ICD10: M53.2X8 ] Diagnosis: Essential (primary) hypertension[ICD10: I10] Diagnosis: Chronic pain syndrome[ICD10: G89.4] Beverly Hussein MD, [facility] CPT-4: 38406 03/18/2018 [id number] EST. PATIENT, LEVEL III Diagnosis: Pain in right knee[ICD10: M25.561] Lizz Hussein MD, [facility] CPT-4: 47661 11/27/2017 ([id number]) 04380 EST. PATIENT, LEVEL IV Diagnosis: Essential (primary) hypertension[ICD10: I10] Diagnosis: Chronic pain syndrome[ICD10: G89.4] Diagnosis: Vitamin D deficiency, unspecified[ICD10: E55.9] Beverly Hussein MD, [facility] CPT-4: 88168 11/19/2017 ([id number]) 57056 EST. PATIENT, LEVEL III Diagnosis: Olecranon bursitis, right elbow[ICD10: M70.21] Beverly Hussein MD, [facility] CPT-4: 08164 08/08/2017 ([id number]) 91351 EST. PATIENT, LEVEL IV Diagnosis: Essential (primary) hypertension[ICD10: I10] Diagnosis: Low back pain[ICD10: M54.5] Beverly Hussein MD, [facility] CPT- 4: 49420 05/21/2017 [id number] EST. PATIENT, LEVEL III Diagnosis: Calculus of kidney[ICD10: N20.0] Lizz Hussein MD, [facility] CPT- 4: 63876 11/23/2016 ([id number]) 34763 EST. PATIENT, LEVEL III Diagnosis: Essential (primary) hypertension[ICD10: I10] Beverly Hussein MD, [facility] CPT-4: 88985 11/20/2016 [id number] EST. PATIENT, LEVEL III Diagnosis: Nausea[ICD10: R11.0] Lizz Hussein MD, [facility] CPT-4: 96391 11/10/2016 ([id number]) 59038 EST. PATIENT, LEVEL III Diagnosis: Allergic rhinitis due to pollen[ICD10: J30.1] Diagnosis: Other benign neoplasm of skin of unspecified part of face[ICD10: D23.30] Kelsy Hussein MD, [facility] CPT-4: 88424 ([id number]) [id number] EST. PATIENT, LEVEL IV Diagnosis: Essential (primary) hypertension[ICD10: I10] Diagnosis: Vitamin D deficiency, unspecified[ICD10: E55.9] Diagnosis: Low back pain[ICD10: M54.5] Diagnosis: Mild intermittent asthma with (acute) exacerbation[ICD10: J45.21] Kelys Hussein MD, [facility] CPT-4: 51703 07/24/2016 ([id number]) [id number] EST. PATIENT, LEVEL IV Diagnosis: Essential (primary) hypertension[ICD10: I10] Diagnosis: Allergic rhinitis due to pollen[ICD10: J30.1] Diagnosis: Low back pain[ICD10: M54.5] [facility] CPT-4: 69576 01/24/2016 ([id number]) [id number] EST. PATIENT, LEVEL IV Diagnosis: Essential (primary) hypertension[ICD10: I10] Diagnosis: Vitamin D deficiency, unspecified[ICD10: E55.9] Diagnosis: Chronic pain syndrome[ICD10: G89.4] Diagnosis: Allergic rhinitis, unspecified[ICD10: J30.9] Kelsy Hussien MD, [facility] CPT-4: 22200 07/26/2015 ([id number]) OFFICE VISIT, NEW - LEVEL 4 Diagnosis: ESSENTIAL HYPERTENSION[ICD9: 401.9] Diagnosis: CHRONIC PAIN SYNDROME[ICD9: 338.4] Diagnosis: Skin change[ICD9: 782.9] Beverly Hussein MD, [facility] CPT-4: 75254 03/24/2015 Plan of Care Planned Activity Notes [...] Summary Completed 08/26/2018 Appointment: [phone] [place] (15 min) Moderate 08/19/2018 Appointment: Lizz Wilks WPtel: [address] [place], [place] [address] [place] (15 min) Moderate 08/07/2018 Visit Plan: [...] care surrogate. 08/05/2018 Appointment: Lizz Wilks WPtel: [facility]4 [facility] [place] [address] - Annual Wellness Visit 08/05/2018 Patient Education: [...] or concerns. 07/25/2018 Appointment: [facility] [phone] [facility] (15 min) Moderate 07/25/2018 Patient Education: Patient [...] - 07/22/2018 [facility]ment[phone] ([facility] min) Moderate 07/22/2018 Patient Education: [...] thereafter. 03/18/2018 [facility]ment: [phone] [facility] [place] (15 min) Moderate 03/18/2018 Patient [...] improve. 11/27/2017 Appointment: [facility]ks [facility] [phone] [facility] [place] (30 min) Complex 11/27/2017 Patient Education: Patient Medication Summary Completed 11/27/2017 Care Plan: X-RAY EXAM OF KNEE 3 LOINC : 43159-6 Pending 11/27/2017 Visit Plan: Hypertension -usually pt [...] current medications. 11/19/2017 Appointment: Beverly Hussein WPtel: [address] [place], [place] [address] [place] (15 min) Moderate 11/19/2017 Patient Education: [...] care surrogate. 05/22/2017 Appointment: Kelsy Hsu WPtel: [phone] [facility] - Annual Wellness Visit 05/22/2017 Patient Education: [...] into Yoga. 05/21/2017 Appointment: Beverly Hussein WPtel: [facility] (15 min) Moderate 05/21/2017 Patient Education: Patient Medication Summary Completed 05/21/2017 Patient Education: Hypertension Completed 05/21/2017 Care Plan: X-RAY EXAM OF ABDOMEN LOINC : 26741-8 Pending 12/17/2016 Visit Plan: Left flank pain - KUB shows renal caliculi - will refer to Dr. Robledo. Pt is to notify clinic with any changes or concerns. 11/23/2016 Appointment: Lizz Wilks WPtel: [facility] (15 min) Moderate 11/23/2016 Patient Education: Patient [...] right cheek 11/20/2016 Appointment: Beverly Hussein WPtel: [facility] [place] (15 min) Moderate 11/20/2016 Patient Education: Patient [...] esophageal reflux. 11/10/2016 Appointment: Lizz Wilks WPtel: [facility]8 [facility] (30 min) Complex 11/10/2016 Patient Education: Patient Medication Summary Completed 11/10/2016 Referral: Poncho Mock [id number] [place] Referral Completed 11/03/2016 Visit Plan: Cyst-right cheek-refer to Dr Mock for removal Bsskjhyke-lwmswq-xkknuxkfi symptoms-kenalog injection today in the office- samples of advair provided and instructed on use. 09/14/2016 Appointment: Kelsy Hsu WPtel: [address] [place], [place] [id number] [place] [address] (30 min) Complex 09/14/2016 Patient Education: Patient Medication Summary Completed 09/14/2016 Care Plan: Referral Order SNOMED-CT : [id number] Pending 09/14/2016 Visit Plan: Hypertension - well [...] prn use 07/24/2016 Appointment: Kelsy Hsu WPtel: [address] [place], [place] [phone] [place] [address] (15 min) Moderate 07/24/2016 Patient Education: Patient [...] spray. Kenalog injection today in the office Gvhas-Mggesh-icnbly to symbicort Low back pain-recommend stretches for [...] 03/24/2015 Patient Education: Hypertension Completed 03/24/2015 [id number] [place] [facility] App[facility] Requested Instructions Comment [...] spray. Kenalog injection today in the office Qakyx-Jhjpyz-xukler to symbicort Low back pain-recommend stretches for [...] her [employer]OP[employer] paperwork for health care surrogate. KENALOG REFER TO DR MOCK . Cyst-right cheek-refer to Dr Mock for removal Sprzvatdd-nbagnu-iejinlopg symptoms-kenalog injection today in the office- samples [...]
--- OUTSIDE RECORDS SUMMARY | 2018-10-09 14:36 | XMS REPORT | CCD ---
Author Author [facility] Organization [facility] Address [address] [place] [address] Phone Care Team Providers Care Guest Relations Manager Name Role Phone PP Unavailable CCM Unavailable Summary Purpose Interface Exchange Insurance Providers Payer name Policy type / Coverage type Covered democrat ID Effective Begin Date Effective End Date WPS Medicare Part B Medicare Part B [id number] 2015 Unknown AARP Medicare Part B [id number] 2015 Unknown Family history Mother Diagnosis Age At Onset Dementia Unknown Father Diagnosis Age At Onset lung cancer Unknown Social History Social History Element Codes Description Effective Dates Marital status Unknown Michelle 03/24/2015 Number of children Unknown 3 03/24/2015 Employment Unknown Retired 03/24/[address]: 934545316 Never smoker 03/24/[address]: 133460974 Never drinks alcohol 03/24/2015 Allergies, Adverse Reactions, Alerts Substance Reaction Codes Entered Date Inactivated Date Status * NO KNOWN FOOD ALLERGIES Unknown 03/24/2015 No Inactive Date Active * NO KNOWN DRUG ALLERGIES Unknown 03/24/2015 No Inactive Date Active Past Medical History Illness Codes Condition Status Onset Date Resolved Date Encounter for general adult medical examination with [...] Problems Condition Codes Effective Dates Condition Status Encounter for general adult medical examination with [...] Fill Instructions gabapentin 100 mg capsule RxNorm: 597514 1 Capsule(s) PO TID , if not having improvement in sam after 5 day, may increase up to two pills three times daily 08/22/2018 11/19/2018 Active morphine ER 15 mg tablet,extended release RxNorm: 215132 1 Tablet(s) PO BID 08/22/2018 09/20/2018 Active prednisone 20 mg tablet RxNorm: 192893 Tablet(s) PO 07/25/2018 No Stop Date Active 60 ,60,40,40,20,20 Zofran ODT 4 mg disintegrating tablet RxNorm: 818690 1 Tablet(s) PO TID 07/25/2018 07/29/2018 Inactive morphine ER 15 mg tablet,extended release RxNorm: 182127 1 Tablet(s) PO BID 07/22/2018 08/20/2018 Inactive gabapentin 100 mg capsule RxNorm: 180412 1 Capsule(s) PO TID , if not having improvement in sam after 5 day, may increase up to two pills three times daily 07/22/2018 08/20/2018 Inactive ProAir HFA 90 mcg/actuation aerosol inhaler RxNorm: 025385 USE 1 TO 2 PUFFS EVERY 4 TO 6 HOURS NEEDED 07/02/20182018 Active 3 * 8.5 GM=25.5 GM Total - Ref : [id number] hydrocodone 10 mg-acetaminophen 325 mg tablet RxNorm: 182844 1-2 Tablet(s) PO Q6 as needed for pain 06/20/2018 07/04/2018 Inactive hydrocodone 10 mg-acetaminophen 325 mg tablet RxNorm: 216769 1-2 Tablet(s) PO Q6 as needed for pain 05/20/2018 06/03/2018 Inactive hydrocodone 10 mg-acetaminophen 325 mg tablet RxNorm: 586409 1-2 Tablet(s) PO Q6 as needed for pain 04/17/2018 05/01/2018 Inactive Kenalog 40 mg/mL suspension for injection RxNorm: 2959555 1.5 Milliliter(s) Inj 03/18/2018 03/18/2018 Inactive hydrocodone 10 mg-acetaminophen 325 mg tablet RxNorm: 181888 1-2 Tablet(s) PO Q6 as needed for pain 03/18/2018 04/01/2018 Inactive prednisone 20 mg tablet RxNorm: 379967 1 Tablet(s) PO daily 03/22/2018 Inactive prednisone 10 mg tablet RxNorm: 235857 TAKE 1 TABLET BY MOUTH DAILY 03/11/2018 06/03/2019 Active - Ref: [id number] Kenalog 40 mg/mL suspension for injection RxNorm: 9164176 1 Milliliter(s) Inj 02/21/2018 02/21/2018 Inactive hydrocodone 10 mg-acetaminophen 325 mg tablet RxNorm: 633833 1-2 Tablet(s) PO Q6 as needed for pain 02/20/2018 03/06/2018 Inactive hydrocodone 10 mg-acetaminophen 325 mg tablet RxNorm: 726276 1-2 Tablet(s) PO Q6 as needed for pain 01/23/2018 02/06/2018 Inactive hydrocodone 10 mg-acetaminophen 325 mg tablet RxNorm: 332630 1-2 Tablet(s) PO Q6 as needed for pain 12/25/2017 01/08/2018 Inactive doxycycline hyclate 100 mg capsule RxNorm: 2809037 1 Capsule(s) PO BID 11/29/2017 12/08/2017 Inactive doxycycline hyclate 100 mg capsule RxNorm: 7869054 1 Capsule(s) PO BID 11/29/2017 11/28/2017 Inactive hydrocodone 10 mg-acetaminophen 325 mg tablet RxNorm: 911850 1-2 Tablet(s) PO Q6 as needed for pain 11/01/2017 11/15/2017 Inactive hydrocodone 10 mg-acetaminophen 325 mg tablet RxNorm: 208435 1-2 Tablet(s) PO Q6 as needed for pain 10/03/2017 10/17/2017 Inactive ProAir HFA 90 mcg/actuation aerosol inhaler RxNorm: 190847 USE 1 TO 2 PUFFS EVERY 4 TO 6 HOURS NEEDED 09/28/20172017 Inactive 3 * 8.5 GM=25.5 GM Total - Ref: [id number] hydrocodone 10 mg-acetaminophen 325 mg tablet RxNorm: 207232 1-2 Tablet(s) PO Q6 as needed for pain 08/30/2017 09/13/2017 Inactive Benicar 20 mg tablet RxNorm: 032335 Tablet(s) TAKE 1 TABLET BY MOUTH DAILY 08/20/2017 08/14/2018 Inactive Benicar 20 mg tablet RxNorm: 544236 TAKE 1 TABLET BY MOUTH DAILY 08/15/2017 08/19/2017 Inactive - Ref: [id number] azithromycin 250 mg tablet RxNorm: 394483 1 Tablet(s) PO UD two tabs on day #1, the one tab daily x 4 doses 08/07/2017 Inactive hydrocodone 10 mg-acetaminophen 325 mg tablet RxNorm: 766423 1-2 Tablet(s) PO Q6 as needed for pain 07/31/2017 08/14/2017 Inactive prednisone 10 mg tablet RxNorm: 863269 TAKE 1 TABLET BY MOUTH DAILY 07/30/2017 01/25/2018 Inactive - Ref: [id number] hydrocodone 10 mg-acetaminophen 325 mg tablet RxNorm: 966147 1-2 Tablet(s) PO Q6 as needed for pain 06/29/2017 07/13/2017 Inactive ProAir HFA 90 mcg/actuation aerosol inhaler RxNorm: 572227 INHALE ONE TO TWO PUFFS BY MOUTH EVERY 4 TO 6 HOURS NEEDED 06/04/2017 07/21/2017 Inactive hydrocodone 10 mg-acetaminophen 325 mg tablet RxNorm: 938239 1-2 1 Tablet(s) PO Q6 as needed for pain 05/22/20172016 Inactive hydrocodone 10 mg-acetaminophen 325 mg tablet RxNorm: 848018 1-2 1 Tablet(s) PO Q6 as needed for pain 04/30/20172016 Inactive hydrocodone 10 mg-acetaminophen 325 mg tablet RxNorm: 318881 1-2 Tablet(s) PO Q6 as needed for pain 03/30/2017 04/13/2017 Inactive Benicar 20 mg tablet RxNorm: 355860 Take 1 tablet by mouth daily 03/22/2017 08/14/2017 Inactive - First Attempt Ref: [id number] hydrocodone 10 mg-acetaminophen 325 mg tablet RxNorm: 216639 1-2 Tablet(s) PO Q6 as needed for pain 03/01/2017 03/15/2017 Inactive Advair Diskus 250 mcg-50 mcg/dose powder for inhalation RxNorm: 0775736 1 INH daily 02/09/2017 02/03/2018 Inactive prednisone 10 mg tablet RxNorm: 168334 Take 1 tablet by mouth daily 02/01/2017 07/29/2017 Inactive - Ref: [id number] hydrocodone 10 mg-acetaminophen 325 mg tablet RxNorm: 618240 1-2 Tablet(s) PO Q6 as needed for pain 02/01/2017 02/15/2017 Inactive hydrocodone 10 mg-acetaminophen 325 mg tablet RxNorm: 415136 1-2 Tablet(s) PO Q6 as needed for pain 01/03/2017 01/17/2017 Inactive hydrocodone 10 mg-acetaminophen 325 mg tablet RxNorm: 601039 1-2 Tablet(s) PO Q6 as needed for pain 12/11/2016 12/25/2016 Inactive prednisone 10 mg tablet RxNorm: 750066 1 Tablet(s) 1 Tablet(s) PO daily 11/10/2016 01/31/2017 Inactive Zofran 4 mg tablet RxNorm: 947394 1 Tablet(s) PO TID 201611/14/2016 Inactive hydrocodone 10 mg-acetaminophen 325 mg tablet RxNorm: 387853 1-2 Tablet(s) PO Q6 as needed for pain 10/31/2016 11/14/2016 Inactive prednisone 10 mg tablet RxNorm: 294960 Take 1 tablet by mouth daily 10/23/2016 03/17/2018 Inactive - Ref: [id number] Advair Diskus 250 mcg-50 mcg/dose powder for inhalation RxNorm: 3025293 1 INH daily 10/13/2016 01/10/2017 Inactive Kenalog 40 mg/mL suspension for injection RxNorm: 6288435 Milliliter(s) Inj 09/14/2016 09/14/2016 Inactive hydrocodone 10 mg-acetaminophen 325 mg tablet RxNorm: 645999 1-2 Tablet(s) PO Q6 as needed for pain 09/11/2016 09/25/2016 Inactive Benicar 20 mg tablet RxNorm: 373023 Take 1 tablet by mouth daily 09/04/2016 03/02/2017 Inactive - First Attempt Ref: [id number] prednisone 10 mg tablet RxNorm: 229550 1 Tablet(s) 1 Tablet(s) PO daily 08/28/2016 10/22/2016 Inactive Vitamin D2 50,000 unit capsule RxNorm: 960900 1 Capsule(s) PO QW 07/28/2016 05/20/2017 Inactive Kenalog 40 mg/mL suspension for injection RxNorm: 8137224 1.5 Milliliter(s) Inj 07/24/2016 07/24/2016 Inactive hydrocodone 10 mg-acetaminophen 325 mg tablet RxNorm: 181151 1-2 Tablet(s) PO Q6 as needed 07/24/2016 09/10/2016 Inactive hydrocodone 10 mg-acetaminophen 325 mg tablet RxNorm: 137207 1-2 Tablet(s) PO Q6 as needed 06/21/2016 07/05/2016 Inactive ProAir HFA 90 mcg/actuation aerosol inhaler RxNorm: 655117 INHALE ONE TO TWO PUFFS BY MOUTH EVERY 4 TO 6 HOURS NEEDED 06/14/2016 07/17/2016 Inactive prednisone 10 mg tablet RxNorm: 381580 Tablet(s) 1 Tablet(s) PO daily 06/14/2016 08/27/2016 Inactive prednisone 10 mg tablet RxNorm: 408612 1 Tablet(s) PO daily 06/13/2016 Inactive ProAir HFA 90 mcg/actuation aerosol inhaler RxNorm: 619731 INHALE ONE TO TWO PUFFS BY MOUTH EVERY 4 TO 6 HOURS NEEDED 06/13/2016 06/13/2016 Inactive hydrocodone 10 mg-acetaminophen 325 mg tablet RxNorm: 104638 1-2 Tablet(s) PO Q6 as needed 05/15/2016 05/29/2016 Inactive hydrocodone 10 mg-acetaminophen 325 mg tablet RxNorm: 670199 1-2 Tablet(s) PO Q6 as needed 04/17/2016 05/01/2016 Inactive Benicar 20 mg tablet RxNorm: 966240 TAKE ONE TABLET BY MOUTH ONCE DAILY 04/13/2016 09/03/2016 Inactive prednisone 10 mg tablet RxNorm: 874248 1 Tablet(s) PO daily 06/12/2016 Inactive hydrocodone 10 mg-acetaminophen 325 mg tablet RxNorm: 514129 1-2 Tablet(s) PO Q6 as needed 03/07/2016 05/14/2016 Inactive hydrocodone 10 mg-acetaminophen 325 mg tablet RxNorm: 223285 1-2 Tablet(s) PO Q6 as needed 03/07/2016 04/16/2016 Inactive Kenalog 40 mg/mL suspension for injection RxNorm: 7784027 Milliliter(s) Inj 01/24/2016 01/24/2016 Inactive hydrocodone 10 mg-acetaminophen 325 mg tablet RxNorm: 247899 1-2 Tablet(s) PO Q6 as needed 01/19/2016 03/06/2016 Inactive hydrocodone 10 mg-acetaminophen 325 mg tablet RxNorm: 068357 1-2 Tablet(s) PO Q6 as needed 11/30/2015 01/18/2016 Inactive hydrocodone 10 mg-acetaminophen 325 mg tablet RxNorm: 282495 1-2 Tablet(s) PO Q6 as needed 09/22/2015 11/29/2015 Inactive prednisone 10 mg tablet RxNorm: 263915 1 Tablet(s) PO daily 11/10/2015 Inactive Vitamin D2 50,000 unit capsule RxNorm: 103112 1 Capsule(s) PO QW 07/28/2015 07/27/2016 Inactive vitamin d 2000 QD Advair Diskus 250 mcg-50 mcg/dose powder for inhalation RxNorm: 5653606 1 INH daily 07/26/2015 08/24/2015 Inactive ProAir HFA 90 mcg/actuation aerosol inhaler RxNorm: 115742 1-2 Puff(s) INH Q4-6H as needed 07/26/2015 11/22/2015 Inactive Kenalog 40 mg/mL suspension for injection RxNorm: 3774569 1 Milliliter(s) Inj daily 07/26/2015 07/26/2015 Inactive hydrocodone 10 mg-acetaminophen 325 mg tablet RxNorm: 946063 1-2 Tablet(s) PO Q6 as needed 07/15/2015 09/21/2015 Inactive prednisone 10 mg tablet RxNorm: 200620 1 Tablet(s) PO daily 11/201408/12/2015 Inactive hydrocodone 10 mg-acetaminophen 325 mg tablet RxNorm: 685553 1-2 Tablet(s) PO Q6 as needed 05/10/2015 07/14/2015 Inactive Benicar 20 mg tablet RxNorm: 042725 1 Tablet(s) PO daily 201403/30/2016 Inactive Vitamin D2 50,000 unit capsule RxNorm: 528524 1 Capsule(s) PO QW 03/25/2015 07/27/2015 Inactive vitamin d 2000 QD fluorouracil 5 % topical cream RxNorm: 915152 1 TOP daily 03/2404/22/2015 Inactive fluorouracil 5 % topical cream RxNorm: 472087 1 TOP daily 03/2403/23/2015 Inactive Efudex 5 % topical cream RxNorm: 014239 1 Application TOP BID to affected skin x 10 days. Let heal and may reapply 03/24/2015 04/22/2015 Inactive ProAir HFA 90 mcg/actuation aerosol inhaler RxNorm: 5647441 1-2 Puff(s) INH Q4-6H as needed 02/18/2015 02/17/2015 Inactive ProAir HFA 90 mcg/actuation aerosol inhaler RxNorm: 9141947 1-2 Puff(s) INH Q4-6H as needed 02/18/2015 06/17/2015 Inactive Vitamin D3 2,000 unit tablet RxNorm: 965398 1 Tablet(s) PO daily No Start Date 05/20/2017 Inactive Benicar 20 mg tablet RxNorm: 366022 1 Tablet(s) PO daily No Start Date 04/05/2015 Inactive Advair Diskus 250 mcg-50 mcg/dose powder for inhalation RxNorm: 4649153 1 INH daily No Start Date 07/25/2015 Inactive Vitamin D2 50,000 unit capsule RxNorm: 968867 1 Capsule(s) PO QW No Start Date 03/24/2015 Inactive vitamin d 2000 QD prednisone 10 mg tablet RxNorm: 818127 1 Tablet(s) PO daily No Start Date 05/26/2015 Inactive azithromycin 250 mg tablet RxNorm: 772259 1 Tablet(s) PO UD two tabs on day #1, the one tab daily x 4 doses No Start Date 08/06/2017 Inactive hydrocodone 10 mg-acetaminophen 325 mg tablet RxNorm: 599906 1-2 Tablet(s) PO Q6 as needed No Start Date 05/09/2015 Inactive Medication Administered Medication Codes Instructions Start Date Status Kenalog 40 mg/mL suspension for injection RxNorm: 2049956 1.5Milliliter 03/18/2018 No longer Active Kenalog 40 mg/mL suspension for injection RxNorm: 1643331 1Milliliter 02/21/2018 No longer Active Kenalog 40 mg/mL suspension for injection RxNorm: 8315160 Milliliter 09/14/2016 No longer Active Kenalog 40 mg/mL suspension for injection RxNorm: 2255112 1.5Milliliter 07/24/2016 No longer Active Kenalog 40 mg/mL suspension for injection RxNorm: 9448036 Milliliter 01/24/2016 No longer Active Kenalog 40 mg/mL suspension for injection RxNorm: 2116804 1Milliliterdaily 07/26/2015 No longer Active Immunizations Vaccine Codes Date Status Influenza CVX: 141 07/19/2018 completed Pneumococcal CVX: 33 07/19/2018 completed Pneumococcal CVX: 133 07/15/2016 completed Tetanus, Diptheria, Pertussis CVX: 113 completed Tetanus/Diptheria CVX: 113 12/23/2014 completed Assessments Condition Codes Effective Dates Encounter for general adult medical examination with [...] Visit Reason For Visit Effective Dates Notes Annual Medicare Wellness Exam 08/05/2018 joint complaint 07/25/2018 back pain 07/22/2018 back pain 03/18/2018 knee pain 11/27/2017 back pain 11/19/2017 elbow pain 08/08/2017 Annual Medicare Wellness Exam 05/22/2017 back pain 05/21/2017 flank pain 11/23/2016 back pain 11/20/2016 nausea 11/10/2016 skin lesion 09/14/2016 back pain 07/24/2016 cough 01/24/2016 hypertension 07/26/2015 hypertension 03/24/2015 Results Observation Observation Code Item Item Code Result Date Carmen [id number] CARMEN (GAY) SCREEN NONE DETECTED 07/27/2018 Sed Rate Ord21 ESR 29 mm/hr 07/26/2018 C-Reactive Protein Qnt Crqnt CRP 5.8 mg/dl 07/25/2018 Ra Factor Qpe843 RA FACTOR <10 IU/ml 07/25/2018 Uric Acid Ord77 Uric A 5.2 mg/dL 07/25/2018 Comp Metabolic Pkm719 NA 137 mEq/L 07/25/2018 Comp Metabolic Kbz318 K 3.9 mEq/L 07/25/2018 Comp Metabolic Guj587 CL 100 mEq/L 07/25/2018 Comp Metabolic Rmo153 CO2 28.0 mEq/L 07/25/2018 Comp Metabolic Nyh478 ANION GAP 13 07/25/2018 Comp Metabolic Aqh724 GLUCOSE 93 mg/dL 07/25/2018 Comp Metabolic Ipk326 Creat 0.8 mg/dL 07/25/2018 Comp Metabolic Bni595 eGFR 102 ml/min/1.73m2 07/25/2018 Comp Metabolic Jpk667 BUN 26 mg/dL 07/25/2018 Comp Metabolic Phg330 B/C Ratio 33.3 Ratio 07/25/2018 Comp Metabolic Anf817 CALCIUM 9.5 mg/dL 07/25/2018 Comp Metabolic Bln852 ALK PHOS 47 U/L 07/25/2018 Comp Metabolic Dsc088 AST(SGOT) 22 U/L 07/25/2018 Comp Metabolic Cmb980 ALT(SGPT) 16 U/L 07/25/2018 Comp Metabolic Fdy478 BILI T 0.6 mg/dL 07/25/2018 Comp Metabolic Jzz792 ALBUMIN 3.8 g/dL 07/25/2018 Comp Metabolic Jmx138 TPRO 5.9 g/dL 07/25/2018 Comp Metabolic Swu746 GLOB 2.2 g/dL 07/25/2018 Comp Metabolic Kgj772 A/G Ratio 1.7 Ratio 07/25/2018 Comp Metabolic Fnj923 Osmo 278 mOsmo 07/25/2018 Cbc With Differential Ord2 WBC 10.44 K/ul 07/25/2018 Cbc With Differential Ord2 RBC 4.31 M/ul 07/25/2018 Cbc With Differential Ord2 HGB 12.8 g/dl 07/25/2018 Cbc With Differential Ord2 Neut% 70.5 % 07/25/2018 Cbc With Differential Ord2 HCT 39.0 % 07/25/2018 Cbc With Differential Ord2 MCV 90.5 fl 07/25/2018 Cbc With Differential Ord2 Lymph% 14.6 % 07/25/2018 Cbc With Differential Ord2 MCH 29.7 pg 07/25/2018 Cbc With Differential Ord2 Bledsoe% 11.0 % 07/25/2018 Cbc With Differential Ord2 MCHC 32.8 pg 07/25/2018 Cbc With Differential Ord2 Eos% 3.6 % 07/25/2018 Cbc With Differential Ord2 PLT 187 K/ul 07/25/2018 Cbc With Differential Ord2 Baso% 0.3 % 07/25/2018 Cbc With Differential Ord2 RDW 14.7 % 07/25/2018 Cbc With Differential Ord2 Neut ABS# 7.36 K/ul 07/25/2018 Cbc With Differential Ord2 Lymph ABS# 1.52 K/ul 07/25/2018 Cbc With Differential Ord2 [place] ABS# 1.2 K/ul 07/25/2018 Cbc With Differential [...] 27.1 % 11/19/2017 Cbc With Differential Ord2 [place]% 13.9 % 11/19/2017 Cbc With Differential Ord2 [...] 2.07 K/ul 11/19/2017 Cbc With Differential Ord2 [place] ABS# 1.1 K/ul 11/19/2017 Cbc With Differential Ord2 Eos ABS# 0.2 K/ul 11/19/2017 Cbc With Differential Ord2 Baso ABS# 0.1 K/ul 11/19/2017 Tsh Ord6 TSH (3rd IS) 1.01 uIU/mL 11/19/2017 Comp Metabolic Tcv340 NA 140 mEq/L 11/19/2017 Comp Metabolic Rky144 K 3.8 mEq/L 11/19/2017 Comp Metabolic Mvw064 CL 105 mEq/L 11/19/2017 Comp Metabolic Kyu541 CO2 30.0 mEq/L 11/19/2017 Comp Metabolic Wwp156 ANION GAP 9 11/19/2017 Comp Metabolic Nbd263 GLUCOSE 91 mg/dL 11/19/2017 Comp Metabolic Def849 Creat 0.6 mg/dL 11/19/2017 Comp Metabolic Jek571 eGFR 133 ml/min/1.73m2 11/19/2017 Comp Metabolic Bmf119 BUN 16 mg/dL 11/19/2017 Comp Metabolic Eit191 B/C Ratio 25.8 Ratio 11/19/2017 Comp Metabolic Hio388 CALCIUM 9.6 mg/dL 11/19/2017 Comp Metabolic Nfd181 ALK PHOS 46 U/L 11/19/2017 Comp Metabolic Auu420 AST(SGOT) 17 U/L 11/19/2017 Comp Metabolic Hew340 ALT(SGPT) 13 U/L 11/19/2017 Comp Metabolic Jcr552 BILI T 0.4 mg/dL 11/19/2017 Comp Metabolic Wiq753 ALBUMIN 3.6 g/dL 11/19/2017 Comp Metabolic Uof952 TPRO 5.9 g/dL 11/19/2017 Comp Metabolic Xro597 GLOB 2.3 g/dL 11/19/2017 Comp Metabolic Yzn268 A/G Ratio 1.6 Ratio 11/19/2017 Comp Metabolic Ycs951 Osmo 280 mOsmo 11/19/2017 Uric Acid Ord77 Uric A 5.5 mg/dL 08/08/2017 Urine Culture Ucult Preliminary NO Growth Day 1 11/27/2016 Urine Culture Ucult Complete NO Growth Day 2 11/27/2016 Vitamin D 25 Oh Mtq7538 VITAMIN D, 25 HYDROXY 28.69 ng/mL Total Psa Ord10 PSA 0.03 ng/mL 07/27/2016 Comp Metabolic Trp485 NA 138 mEq/L 07/27/2016 Comp Metabolic Ykc574 K 4.1 mEq/L 07/27/2016 Comp Metabolic Icn436 CL 106 mEq/L 07/27/2016 Comp Metabolic Jwp129 CO2 26.0 mEq/L 07/27/2016 Comp Metabolic Lgn915 ANION GAP 10 07/27/2016 Comp Metabolic Gps568 GLUCOSE 102 mg/dL 07/27/2016 Comp Metabolic Phx113 Creat 0.7 mg/dL 07/27/2016 Comp Metabolic Pva930 eGFR 125 ml/min/1.73m2 07/27/2016 Comp Metabolic Fyw003 BUN 24 mg/dL 07/27/2016 Comp Metabolic Fhr302 B/C Ratio 36.4 Ratio 07/27/2016 Comp Metabolic Fjh268 CALCIUM 10.2 mg/dL 07/27/2016 Comp Metabolic Ght121 ALK PHOS 41 U/L 07/27/2016 Comp Metabolic Wms514 AST(SGOT) 17 U/L 07/27/2016 Comp Metabolic Ptm376 ALT(SGPT) 14 U/L 07/27/2016 Comp Metabolic Pjj279 BILI T 0.5 mg/dL 07/27/2016 Comp Metabolic Dzc827 ALBUMIN 3.9 g/dL 07/27/2016 Comp Metabolic Tft531 TPRO 6.3 g/dL 07/27/2016 Comp Metabolic Oay732 GLOB 2.4 g/dL 07/27/2016 Comp Metabolic Aan818 A/G Ratio 1.6 Ratio 07/27/2016 Comp Metabolic Mpz106 Osmo 280 mOsmo 07/27/2016 Cbc With Differential Ord2 WBC 8.35 K/ul 07/27/2016 Cbc With Differential Ord2 RBC 4.71 M/ul 07/27/2016 Cbc With Differential Ord2 HGB 13.8 g/dl 07/27/2016 Cbc With Differential Ord2 Neut% 67.3 % 07/27/2016 Cbc With Differential Ord2 HCT 41.3 % 07/27/2016 Cbc With Differential Ord2 Lymph% 21.4 % 07/27/2016 Cbc With Differential Ord2 MCV 87.7 fl 07/27/2016 Cbc With Differential Ord2 MCH 29.3 pg 07/27/2016 Cbc With Differential Ord2 Bledsoe% 10.1 % 07/27/2016 Cbc With Differential Ord2 Eos% 0.8 % 07/27/2016 Cbc With Differential Ord2 MCHC 33.4 pg 07/27/2016 Cbc With Differential Ord2 PLT 187 K/ul 07/27/2016 Cbc With Differential Ord2 Baso% 0.4 % 07/27/2016 Cbc With Differential Ord2 Neut ABS# 5.62 K/ul 07/27/2016 Cbc With Differential Ord2 RDW 14.9 % 07/27/2016 Cbc With Differential Ord2 Lymph ABS# 1.79 K/ul 07/27/2016 Cbc With Differential Ord2 [place] ABS# 0.8 K/ul 07/27/2016 Cbc With Differential Ord2 Eos ABS# 0.1 K/ul 07/27/2016 Cbc With Differential Ord2 Baso ABS# 0.0 K/ul 07/27/2016 Tsh Ord6 hTSH II 1.21 uIU/mL 07/27/2016 Lipid Ord30 CHOL 184 mg/dL 07/27/2016 Lipid Ord30 HDL 53.0 mg/dl 07/27/2016 Lipid Ord30 TRIG 106 mg/dL 07/27/2016 Lipid Ord30 LDL 110 mg/dL 07/27/2016 Lipid Ord30 C/HDL 3.5 Ratio 07/27/2016 Comp Metabolic Jxl096 NA 137 mEq/L 07/26/2015 Comp Metabolic Sys838 K 3.7 mEq/L 07/26/2015 Comp Metabolic Kal747 CL 103 mEq/L 07/26/2015 Comp Metabolic Dmo239 CO2 26.0 mEq/L 07/26/2015 Comp Metabolic Jkv560 ANION GAP 12 07/26/2015 Comp Metabolic Mxj747 GLUCOSE 99 mg/dL 07/26/2015 Comp Metabolic Iva750 Creat 0.8 mg/dL 07/26/2015 Comp Metabolic Ikj842 eGFR 103 ml/min/1.73m2 07/26/2015 Comp Metabolic Ffm851 BUN 22 mg/dL 07/26/2015 Comp Metabolic Dnk478 B/C Ratio 28.2 Ratio 07/26/2015 Comp Metabolic Iqn112 CALCIUM 9.7 mg/dL 07/26/2015 Comp Metabolic Vsb113 ALK PHOS 40 U/L 07/26/2015 Comp Metabolic Lzm030 AST(SGOT) 26 U/L 07/26/2015 Comp Metabolic Cmx830 ALT(SGPT) 20 U/L 07/26/2015 Comp Metabolic Qsh445 BILI T 0.5 mg/dL 07/26/2015 Comp Metabolic Nvr490 ALBUMIN 3.9 g/dL 07/26/2015 Comp Metabolic Ugr075 TPRO 6.4 g/dL 07/26/2015 Comp Metabolic Bpl930 GLOB 2.5 g/dL 07/26/2015 Comp Metabolic Jwg826 A/G Ratio 1.6 Ratio 07/26/2015 Comp Metabolic Bdx493 Osmo 277 mOsmo 07/26/2015 Tsh Ord6 hTSH [...] 0.01 ng/mL 07/26/2015 Vitamin D 25 Oh Tzj9528 VITAMIN D, 25 HYDROXY 31.47 ng/mL Review of Systems System Result Effective Dates Constitutional No recent illness 2017 Constitutional No [...] affect 03/24/2015 None Full Exam - General 1995 Integument inspection of skin Rash/Lesions: ulceration 03/24/2015 on face/scalp Procedures Procedure Codes Date PPPS, SUBSEQ VISIT CPT -4: G0439 08/05/2018 DRAIN/INJECT JOINT/BURSA CPT-4: 18986 03/18/2018 TRIAMCINOLONE ACET INJ NOS CPT-4: J3301 03/18/2018 THER/PROPH/DIAG INJ SC/IM CPT-4: 44776 02/21/2018 TRIAMCINOLONE ACET INJ NOS CPT-4: J3301 02/21/2018 PPPS, SUBSEQ VISIT CPT -4: G0439 05/22/2017 TRIAMCINOLONE ACET INJ NOS CPT-4: J3301 09/14/2016 TRIAMCINOLONE ACET INJ NOS CPT-4: J3301 07/24/2016 THER/PROPH/DIAG INJ SC/IM CPT-4: 83150 07/24/2016 TRIAMCINOLONE ACET INJ NOS CPT-4: J3301 01/24/2016 TRIAMCINOLONE ACET INJ NOS CPT-4: J3301 07/26/2015 THER/PROPH/DIAG INJ SC/IM CPT-4: 23314 07/26/2015 Vital Signs Date Vital 08/05/2018 Blood Pressure 1: 118/64 Code : 8480-6 BMI: 26.2 Code : 74732-3 Heart Rate 1 : 66 bpm Height: 6'4" SpO2: 97% Waist Measure (cm): 81 cm Weight: 215 lbs 07/25/2018 Blood Pressure 1: 128/78 Code : 8480-6 BMI: 26.2 Code : 68402-9 Heart Rate 1 : 68 bpm Height: 6'4" SpO2: 95% Weight: 215 lbs 07/22/2018 Blood Pressure 1: 142/78 Code : 8480-6 BMI: 26.7 Code : 32526-9 Heart Rate 1 : 64 bpm Height: 6'4" SpO2: 99% Weight: 219 lbs 03/18/2018 Blood Pressure 1: 136/84 Code : 8480-6 BMI: 26.5 Code : 63402-0 Heart Rate 1 : 79 bpm Height: 6'4" SpO2: 99% Weight: 218 lbs 11/27/2017 Blood Pressure 1: 132/64 Code : 8480-6 BMI: 27.8 Code : 36747-3 Heart Rate 1 : 41 bpm Height: 6'4" SpO2: 97% Weight: 228 lbs 11/19/2017 Blood Pressure 1: 140/88 Code : 8480-6 Blood Pressure 1: 148/76 Code: 8480-6 BMI: 27.3 Code: 15449-3 Heart Rate 1: 58 bpm Height: 6'4" SpO2: 98% Weight: 224 lbs 08/08/2017 Blood Pressure 1: 130/80 Code : 8480-6 BMI: 26.5 Code : 05005-1 Heart Rate 1 : 71 bpm Height: 6'4" SpO2: 98% Weight: 218 lbs 05/22/2017 Blood Pressure 1: 142/78 Code : 8480-6 BMI: 28.0 Code : 73105-0 Heart Rate 1 : 77 bpm Height: 6'4" SpO2: 94% Waist Measure (cm): 91 cm Weight: 230 lbs 05/21/2017 Blood Pressure 1: 144/72 Code : 8480-6 BMI: 28.1 Code : 70339-6 Heart Rate 1 : 74 bpm Height: 6'4" SpO2: 95% Weight: 230 lbs 8 oz 11/23/2016 Blood Pressure 1: 136/74 Code : 8480-6 BMI: 29.9 Code : 02753-0 Heart Rate 1 : 59 bpm Height: 6'4" SpO2: 94% Weight: 246 lbs 11/20/2016 Blood Pressure 1: 130/80 Code : 8480-6 BMI: 29.9 Code : 45918-6 Heart Rate 1 : 75 bpm Height: 6'4" SpO2: 98% Weight: 246 lbs 11/10/2016 Blood Pressure 1: 140/82 Code : 8480-6 BMI: 29.7 Code : 20598-2 Heart Rate 1 : 64 bpm Height: 6'4" SpO2: 94% Weight: 244 lbs 09/14/2016 Blood Pressure 1: 130/82 Code : 8480-6 BMI: 27.4 Code : 95432-3 Heart Rate 1 : 74 bpm Height: 6'4" SpO2: 96% Weight: 225 lbs 07/24/2016 Blood Pressure 1: 128/78 Code : 8480-6 BMI: 27.4 Code : 67806-2 Heart Rate 1 : 78 bpm Height: 6'4" SpO2: 94% Weight: 225 lbs 01/24/2016 Blood Pressure 1: 124/88 Code : 8480-6 BMI: 29.5 Code : 15988-4 Heart Rate 1 : 68 bpm Height: 6'4" SpO2: 98% Weight: 242 lbs 07/26/2015 Blood Pressure 1: 150/82 Code : 8480-6 Blood Pressure 1: 138/82 Code: 8480-6 BMI: 29.9 Code: 89916-4 Heart Rate 1: 68 bpm Height: 6'4" SpO2: 94% Weight: 246 lbs 03/24/2015 Blood Pressure 1: 114/84 Code : 8480-6 BMI: 29.8 Code : 42676-6 Heart Rate 1 : 67 bpm Height: 6'4" SpO2: 95% Weight: 245 lbs Functional Status No Functional Status data History of Present Illness Symptom Name Status Result Effective Date Notes Annual Medicare Wellness Exam Smoking and Tobacco [...] Performer Location Codes Date EST. PATIENT, LEVEL IV Diagnosis: Pain in left wrist[ICD10: M25.532] Diagnosis: Other malaise[ICD10: R53.81] Diagnosis: Other fatigue[ICD10: R53.83] Lizz Hussein MD, [facility] CPT-4 : 54083 07/25/2018 ([id number]) 35736 EST. PATIENT, LEVEL IV Diagnosis: Essential (primary) hypertension[ICD10: I10] Diagnosis: Chronic pain syndrome[ICD10: G89.4] Diagnosis: Low back pain[ICD10: M54.5] Beverly Husesin MD, [facility] CPT- 4: 70529 07/22/2018 ([id number]) 07693 EST. PATIENT, LEVEL III Diagnosis: Sacroiliitis, not elsewhere classified[ICD10: M46.1] Diagnosis: Spinal instabilities, sacral and sacrococcygeal region[ICD10: M53.2X8 ] Diagnosis: Essential (primary) hypertension[ICD10: I10] Diagnosis: Chronic pain syndrome[ICD10: G89.4] Beverly Hussein MD, [facility] CPT-4: 03966 03/18/2018 62834 EST. PATIENT, LEVEL III Diagnosis: Pain in right knee[ICD10: M25.561] Lizz Hussein MD, [facility] CPT-4: 36451 11/27/2017 ([id number]) 39016 EST. PATIENT, LEVEL IV Diagnosis: Essential (primary) hypertension[ICD10: I10] Diagnosis: Chronic pain syndrome[ICD10: G89.4] Diagnosis: Vitamin D deficiency, unspecified[ICD10: E55.9] Beverly Hussein MD, [facility] CPT-4: 22265 11/19/2017 ([id number]) 11073 EST. PATIENT, LEVEL III Diagnosis: Olecranon bursitis, right elbow[ICD10: M70.21] Beverly Hussein MD, [facility] CPT-4: 50951 08/08/2017 ([id number]) 96440 EST. PATIENT, LEVEL IV Diagnosis: Essential (primary) hypertension[ICD10: I10] Diagnosis: Low back pain[ICD10: M54.5] Beverly Hussein MD, [facility] CPT- 4: 75627 05/21/2017 00162 EST. PATIENT, LEVEL III Diagnosis: Calculus of kidney[ICD10: N20.0] Lizz Hussein MD, [facility] CPT- 4: 84721 11/23/2016 ([id number]) 33410 EST. PATIENT, LEVEL III Diagnosis: Essential (primary) hypertension[ICD10: I10] Beverly Hussein MD, [facility] CPT-4: 34716 11/20/2016 22490 EST. PATIENT, LEVEL III Diagnosis: Nausea[ICD10: R11.0] Lizz Hussein MD, [facility] CPT-4: 29994 11/10/2016 ([id number]) 17477 EST. PATIENT, LEVEL III Diagnosis: Allergic rhinitis due to pollen[ICD10: J30.1] Diagnosis: Other benign neoplasm of skin of unspecified part of face[ICD10: D23.30] Kelsy Hussein MD, [facility] CPT-4: 62180 ([id number]) 60881 EST. PATIENT, LEVEL IV Diagnosis: Essential (primary) hypertension[ICD10: I10] Diagnosis: Vitamin D deficiency, unspecified[ICD10: E55.9] Diagnosis: Low back pain[ICD10: M54.5] Diagnosis: Mild intermittent asthma with (acute) exacerbation[ICD10: J45.21] Kelsy Hussein MD, [facility] CPT-4: 04200 07/24/2016 ([id number]) 16662 EST. PATIENT, LEVEL IV Diagnosis: Essential (primary) hypertension[ICD10: I10] Diagnosis: Allergic rhinitis due to pollen[ICD10: J30.1] Diagnosis: Low back pain[ICD10: M54.5] Kelsy Hussein MD, [facility] CPT-4: 86549 01/24/2016 ([id number]) 03922 EST. PATIENT, LEVEL IV Diagnosis: Essential (primary) hypertension[ICD10: I10] Diagnosis: Vitamin D deficiency, unspecified[ICD10: E55.9] Diagnosis: Chronic pain syndrome[ICD10: G89.4] Diagnosis: Allergic rhinitis, unspecified[ICD10: J30.9] Kelsy Hussein MD, [facility] CPT-4: 56945 07/26/2015 ([id number]) OFFICE VISIT, NEW - LEVEL 4 Diagnosis: ESSENTIAL HYPERTENSION[ICD9: 401.9] Diagnosis: CHRONIC PAIN SYNDROME[ICD9: 338.4] Diagnosis: Skin change[ICD9: 782.9] Beverly Hussein MD, [facility] CPT-4: 96175 03/24/2015 Plan of Care Planned Activity Notes Codes Status Date Appointment: Kelsy Hsu WPtel: [phone] [phone] [place] (15 min) Moderate 08/19/2018 [facility]ment[phone] ([facility] min) Moderate 08/07/2018 Visit Plan: Medicare [...] care surrogate. 08/05/2018 Appointment: Lizz Wilks WPtel: [address] [place], [place] [id number] [place] [address] - Annual Wellness Visit 08/05/2018 Patient Education: [...] or concerns. 07/25/2018 Appointment: Lizz Wilks WPtel: [facility] [place] (15 min) Moderate 07/25/2018 Patient Education: [...] today - 07/22/2018 [facility]ment[phone] ([facility] min) Moderate 07/22/2018 Patient Education: [...] thereafter. 03/18/2018 Appointment: [phone] (15 min) Moderate 03/18/2018 Patient Education: [...] not improve. 11/27/2017 Appointment: [phone] (30 min) Complex 11/27/2017 Patient Education: Patient Medication Summary Completed 11/27/2017 Care Plan: X-RAY EXAM OF KNEE 3 [facility] : 60592-9 Pending 11/27/2017 Visit Plan: Hypertension -usually pt [...] medications. 11/19/2017 Appointment: [phone] (15 min) Moderate 11/19/2017 Patient Education: [...] care surrogate. 05/22/2017 App[facility]: [phone] [facility] - Annual Wellness Visit 05/22/2017 [...] into Yoga. 05/21/2017 Appointment: [phone] (15 min) Moderate 05/21/2017 Patient Education: Patient Medication Summary Completed 05/21/2017 Patient Education: Hypertension Completed 05/21/2017 Care Plan: X-RAY EXAM OF ABDOMEN LOINC : 09808-0 Pending 12/17/2016 Visit Plan: Left flank pain - KUB shows renal caliculi - will refer to Dr. Robledo. Pt is to notify clinic with any changes or concerns. 11/23/2016 Appointment: [phone] (15 min) Moderate 11/23/2016 Patient Education: [...] cheek 11/20/2016 Appointment: [phone] (15 min) Moderate 11/20/2016 Patient Education: Patient [...] esophageal reflux. 11/10/2016 Appointment: Lizz Wilks WPtel: [facility] (30 min) Complex 11/10/2016 Patient Education: Patient Medication Summary Completed 11/10/2016 Referral: Poncho Mock [facility] Referral Completed 11/03/2016 Visit Plan: Cyst-right cheek-refer to Dr Mock for removal Tkjviozdv-tizcwe-wmwptoskx symptoms-kenalog injection today in the office- samples of advair provided and instructed on use. 09/14/2016 Appointment: Kelsy Hsu WPtel: [facility]5 [phone] (30 min) Complex 09/14/2016 Patient Education: Patient Medication Summary Completed 09/14/2016 Care Plan: Referral Order SNOMED-CT : [id number] Pending 09/14/2016 Visit Plan: Hypertension - well [...] prn use 07/24/2016 Appointment: Kelsy Hsu WPtel: [phone] (15 min) Moderate 07/24/2016 Patient Education: Patient [...] spray. Kenalog injection today in the office Ihtuz-Tatpfp-higjxk to symbicort Low back pain-recommend stretches for [...] Patient Education: Hypertension Completed 03/24/2015 [facility] [facility] Requested Instructions Comment [...] Vitamin D deficiency-check vitamin D level today REFER FOR PT-PINAMONTI -LOW BACK PAIN, SCIATICA [...] spray. Kenalog injection today in the office Zwzpo-Ungbxu-kqlbtf to symbicort Low back pain-recommend stretches for [...] Cyst-right cheek-refer to Dr Mock for removal Rlyjsfqmj-rsrbqv-evndmbxng symptoms-kenalog injection today in the office- samples [...]
--- OUTSIDE RECORDS SUMMARY | 2018-10-09 14:39 | XMS REPORT | CCD ---
Author Author [facility] Organization [facility] Address [address] [place] [address] Phone Care Team Providers Care Director Medical Affairs Name Role Phone PP Unavailable CCM Unavailable Summary Purpose Interface Exchange Insurance Providers Payer name Policy type / Coverage type Covered alliance party ID Effective Begin Date Effective End Date WPS Medicare Part B Medicare Part B [id number] 2015 Unknown AARP Medicare Part B [id number] 2015 Unknown Family history Mother Diagnosis Age At Onset Dementia Unknown Father Diagnosis Age At Onset lung cancer Unknown Social History Social History Element Codes Description Effective Dates Marital status Unknown Michelle 03/24/2015 Number of children Unknown 3 03/24/2015 Employment Unknown Retired 03/24/[address]: 597300460 Never smoker 03/24/[address]: 668954827 Never drinks alcohol 03/24/2015 Allergies, Adverse Reactions, [...] Start Date Stop Date Status Fill Instructions morphine ER 15 mg tablet,extended release RxNorm: 319150 1 Tablet(s) PO BID 08/22/2018 09/20/2018 Active prednisone 20 mg tablet RxNorm: 316141 Tablet(s) PO 07/25/2018 No Stop Date Active 60 ,60,40,40,20,20 Zofran ODT 4 mg disintegrating tablet RxNorm: 269379 1 Tablet(s) PO TID 07/25/2018 07/29/2018 Inactive morphine ER 15 mg tablet,extended release RxNorm: 963827 1 Tablet(s) PO BID 07/22/2018 08/20/2018 Inactive gabapentin 100 mg capsule RxNorm: 326889 1 Capsule(s) PO TID , if not having improvement in sam after 5 day, may increase up to two pills three times daily 07/22/2018 08/20/2018 Inactive ProAir HFA 90 mcg/actuation aerosol inhaler RxNorm: 037471 USE 1 TO 2 PUFFS EVERY 4 TO 6 HOURS NEEDED 07/02/20182018 Active 3 * 8.5 GM=25.5 GM Total - Ref : [id number] hydrocodone 10 mg-acetaminophen 325 mg tablet RxNorm: 099926 1-2 Tablet(s) PO Q6 as needed for pain 06/20/2018 07/04/2018 Inactive hydrocodone 10 mg-acetaminophen 325 mg tablet RxNorm: 471453 1-2 Tablet(s) PO Q6 as needed for pain 05/20/2018 06/03/2018 Inactive hydrocodone 10 mg-acetaminophen 325 mg tablet RxNorm: 091923 1-2 Tablet(s) PO Q6 as needed for pain 04/17/2018 05/01/2018 Inactive Kenalog 40 mg/mL suspension for injection RxNorm: 6446572 1.5 Milliliter(s) Inj 03/18/2018 03/18/2018 Inactive hydrocodone 10 mg-acetaminophen 325 mg tablet RxNorm: 156503 1-2 Tablet(s) PO Q6 as needed for pain 03/18/2018 04/01/2018 Inactive prednisone 20 mg tablet RxNorm: 816772 1 Tablet(s) PO daily 03/22/2018 Inactive prednisone 10 mg tablet RxNorm: 981730 TAKE 1 TABLET BY MOUTH DAILY 03/11/2018 06/03/2019 Active - Ref: [id number] Kenalog 40 mg/mL suspension for injection RxNorm: 2871184 1 Milliliter(s) Inj 02/21/2018 02/21/2018 Inactive hydrocodone 10 mg-acetaminophen 325 mg tablet RxNorm: 562258 1-2 Tablet(s) PO Q6 as needed for pain 02/20/2018 03/06/2018 Inactive hydrocodone 10 mg-acetaminophen 325 mg tablet RxNorm: 829390 1-2 Tablet(s) PO Q6 as needed for pain 01/23/2018 02/06/2018 Inactive hydrocodone 10 mg-acetaminophen 325 mg tablet RxNorm: 440860 1-2 Tablet(s) PO Q6 as needed for pain 12/25/2017 01/08/2018 Inactive doxycycline hyclate 100 mg capsule RxNorm: 3115862 1 Capsule(s) PO BID 11/29/2017 12/08/2017 Inactive doxycycline hyclate 100 mg capsule RxNorm: 8991142 1 Capsule(s) PO BID 11/29/2017 11/28/2017 Inactive hydrocodone 10 mg-acetaminophen 325 mg tablet RxNorm: 358883 1-2 Tablet(s) PO Q6 as needed for pain 11/01/2017 11/15/2017 Inactive hydrocodone 10 mg-acetaminophen 325 mg tablet RxNorm: 810564 1-2 Tablet(s) PO Q6 as needed for pain 10/03/2017 10/17/2017 Inactive ProAir HFA 90 mcg/actuation aerosol inhaler RxNorm: 510394 USE 1 TO 2 PUFFS EVERY 4 TO 6 HOURS NEEDED 09/28/20172017 Inactive 3 * 8.5 GM=25.5 GM Total - Ref: [id number] hydrocodone 10 mg-acetaminophen 325 mg tablet RxNorm: 486535 1-2 Tablet(s) PO Q6 as needed for pain 08/30/2017 09/13/2017 Inactive Benicar 20 mg tablet RxNorm: 907036 Tablet(s) TAKE 1 TABLET BY MOUTH DAILY 08/20/2017 08/14/2018 Inactive Benicar 20 mg tablet RxNorm: 717952 TAKE 1 TABLET BY MOUTH DAILY 08/15/2017 08/19/2017 Inactive - Ref: [id number] azithromycin 250 mg tablet RxNorm: 301591 1 Tablet(s) PO UD two tabs on day #1, the one tab daily x 4 doses 08/07/2017 Inactive hydrocodone 10 mg-acetaminophen 325 mg tablet RxNorm: 415036 1-2 Tablet(s) PO Q6 as needed for pain 07/31/2017 08/14/2017 Inactive prednisone 10 mg tablet RxNorm: 196525 TAKE 1 TABLET BY MOUTH DAILY 07/30/2017 01/25/2018 Inactive - Ref: [id number] hydrocodone 10 mg-acetaminophen 325 mg tablet RxNorm: 381975 1-2 Tablet(s) PO Q6 as needed for pain 06/29/2017 07/13/2017 Inactive ProAir HFA 90 mcg/actuation aerosol inhaler RxNorm: 380082 INHALE ONE TO TWO PUFFS BY MOUTH EVERY 4 TO 6 HOURS NEEDED 06/04/2017 07/21/2017 Inactive hydrocodone 10 mg-acetaminophen 325 mg tablet RxNorm: 505483 1-2 1 Tablet(s) PO Q6 as needed for pain 05/22/20172016 Inactive hydrocodone 10 mg-acetaminophen 325 mg tablet RxNorm: 655987 1-2 1 Tablet(s) PO Q6 as needed for pain 04/30/20172016 Inactive hydrocodone 10 mg-acetaminophen 325 mg tablet RxNorm: 647846 1-2 Tablet(s) PO Q6 as needed for pain 03/30/2017 04/13/2017 Inactive Benicar 20 mg tablet RxNorm: 980161 Take 1 tablet by mouth daily 03/22/2017 08/14/2017 Inactive - First Attempt Ref: [id number] hydrocodone 10 mg-acetaminophen 325 mg tablet RxNorm: 762106 1-2 Tablet(s) PO Q6 as needed for pain 03/01/2017 03/15/2017 Inactive Advair Diskus 250 mcg-50 mcg/dose powder for inhalation RxNorm: 2640705 1 INH daily 02/09/2017 02/03/2018 Inactive prednisone 10 mg tablet RxNorm: 400209 Take 1 tablet by mouth daily 02/01/2017 07/29/2017 Inactive - Ref: [id number] hydrocodone 10 mg-acetaminophen 325 mg tablet RxNorm: 274308 1-2 Tablet(s) PO Q6 as needed for pain 02/01/2017 02/15/2017 Inactive hydrocodone 10 mg-acetaminophen 325 mg tablet RxNorm: 422326 1-2 Tablet(s) PO Q6 as needed for pain 01/03/2017 01/17/2017 Inactive hydrocodone 10 mg-acetaminophen 325 mg tablet RxNorm: 828723 1-2 Tablet(s) PO Q6 as needed for pain 12/11/2016 12/25/2016 Inactive prednisone 10 mg tablet RxNorm: 952161 1 Tablet(s) 1 Tablet(s) PO daily 11/10/2016 01/31/2017 Inactive Zofran 4 mg tablet RxNorm: 630728 1 Tablet(s) PO TID 201611/14/2016 Inactive hydrocodone 10 mg-acetaminophen 325 mg tablet RxNorm: 032011 1-2 Tablet(s) PO Q6 as needed for pain 10/31/2016 11/14/2016 Inactive prednisone 10 mg tablet RxNorm: 551606 Take 1 tablet by mouth daily 10/23/2016 03/17/2018 Inactive - Ref: [id number] Advair Diskus 250 mcg-50 mcg/dose powder for inhalation RxNorm: 9901704 1 INH daily 10/13/2016 01/10/2017 Inactive Kenalog 40 mg/mL suspension for injection RxNorm: 8959446 Milliliter(s) Inj 09/14/2016 09/14/2016 Inactive hydrocodone 10 mg-acetaminophen 325 mg tablet RxNorm: 336044 1-2 Tablet(s) PO Q6 as needed for pain 09/11/2016 09/25/2016 Inactive Benicar 20 mg tablet RxNorm: 592411 Take 1 tablet by mouth daily 09/04/2016 03/02/2017 Inactive - First Attempt Ref: [id number] prednisone 10 mg tablet RxNorm: 858385 1 Tablet(s) 1 Tablet(s) PO daily 08/28/2016 10/22/2016 Inactive Vitamin D2 50,000 unit capsule RxNorm: 508642 1 Capsule(s) PO QW 07/28/2016 05/20/2017 Inactive Kenalog 40 mg/mL suspension for injection RxNorm: 9773418 1.5 Milliliter(s) Inj 07/24/2016 07/24/2016 Inactive hydrocodone 10 mg-acetaminophen 325 mg tablet RxNorm: 425507 1-2 Tablet(s) PO Q6 as needed 07/24/2016 09/10/2016 Inactive hydrocodone 10 mg-acetaminophen 325 mg tablet RxNorm: 563309 1-2 Tablet(s) PO Q6 as needed 06/21/2016 07/05/2016 Inactive ProAir HFA 90 mcg/actuation aerosol inhaler RxNorm: 370996 INHALE ONE TO TWO PUFFS BY MOUTH EVERY 4 TO 6 HOURS NEEDED 06/14/2016 07/17/2016 Inactive prednisone 10 mg tablet RxNorm: 423280 Tablet(s) 1 Tablet(s) PO daily 06/14/2016 08/27/2016 Inactive prednisone 10 mg tablet RxNorm: 981189 1 Tablet(s) PO daily 06/13/2016 Inactive ProAir HFA 90 mcg/actuation aerosol inhaler RxNorm: 705964 INHALE ONE TO TWO PUFFS BY MOUTH EVERY 4 TO 6 HOURS NEEDED 06/13/2016 06/13/2016 Inactive hydrocodone 10 mg-acetaminophen 325 mg tablet RxNorm: 098894 1-2 Tablet(s) PO Q6 as needed 05/15/2016 05/29/2016 Inactive hydrocodone 10 mg-acetaminophen 325 mg tablet RxNorm: 742016 1-2 Tablet(s) PO Q6 as needed 04/17/2016 05/01/2016 Inactive Benicar 20 mg tablet RxNorm: 468214 TAKE ONE TABLET BY MOUTH ONCE DAILY 04/13/2016 09/03/2016 Inactive prednisone 10 mg tablet RxNorm: 754705 1 Tablet(s) PO daily 06/12/2016 Inactive hydrocodone 10 mg-acetaminophen 325 mg tablet RxNorm: 409656 1-2 Tablet(s) PO Q6 as needed 03/07/2016 05/14/2016 Inactive hydrocodone 10 mg-acetaminophen 325 mg tablet RxNorm: 242479 1-2 Tablet(s) PO Q6 as needed 03/07/2016 04/16/2016 Inactive Kenalog 40 mg/mL suspension for injection RxNorm: 3228310 Milliliter(s) Inj 01/24/2016 01/24/2016 Inactive hydrocodone 10 mg-acetaminophen 325 mg tablet RxNorm: 769800 1-2 Tablet(s) PO Q6 as needed 01/19/2016 03/06/2016 Inactive hydrocodone 10 mg-acetaminophen 325 mg tablet RxNorm: 215757 1-2 Tablet(s) PO Q6 as needed 11/30/2015 01/18/2016 Inactive hydrocodone 10 mg-acetaminophen 325 mg tablet RxNorm: 320387 1-2 Tablet(s) PO Q6 as needed 09/22/2015 11/29/2015 Inactive prednisone 10 mg tablet RxNorm: 021221 1 Tablet(s) PO daily 11/10/2015 Inactive Vitamin D2 50,000 unit capsule RxNorm: 241728 1 Capsule(s) PO QW 07/28/2015 07/27/2016 Inactive vitamin d 2000 QD Advair Diskus 250 mcg-50 mcg/dose powder for inhalation RxNorm: 0298756 1 INH daily 07/26/2015 08/24/2015 Inactive ProAir HFA 90 mcg/actuation aerosol inhaler RxNorm: 329396 1-2 Puff(s) INH Q4-6H as needed 07/26/2015 11/22/2015 Inactive Kenalog 40 mg/mL suspension for injection RxNorm: 4720530 1 Milliliter(s) Inj daily 07/26/2015 07/26/2015 Inactive hydrocodone 10 mg-acetaminophen 325 mg tablet RxNorm: 076728 1-2 Tablet(s) PO Q6 as needed 07/15/2015 09/21/2015 Inactive prednisone 10 mg tablet RxNorm: 352293 1 Tablet(s) PO daily 11/201408/12/2015 Inactive hydrocodone 10 mg-acetaminophen 325 mg tablet RxNorm: 456467 1-2 Tablet(s) PO Q6 as needed 05/10/2015 07/14/2015 Inactive Benicar 20 mg tablet RxNorm: 927042 1 Tablet(s) PO daily 201403/30/2016 Inactive Vitamin D2 50,000 unit capsule RxNorm: 093625 1 Capsule(s) PO QW 03/25/2015 07/27/2015 Inactive vitamin d 2000 QD fluorouracil 5 % topical cream RxNorm: 825159 1 TOP daily 03/2404/22/2015 Inactive fluorouracil 5 % topical cream RxNorm: 096479 1 TOP daily 03/2403/23/2015 Inactive Efudex 5 % topical cream RxNorm: 007581 1 Application TOP BID to affected skin x 10 days. Let heal and may reapply 03/24/2015 04/22/2015 Inactive ProAir HFA 90 mcg/actuation aerosol inhaler RxNorm: 9070030 1-2 Puff(s) INH Q4-6H as needed 02/18/2015 02/17/2015 Inactive ProAir HFA 90 mcg/actuation aerosol inhaler RxNorm: 7846839 1-2 Puff(s) INH Q4-6H as needed 02/18/2015 06/17/2015 Inactive Vitamin D3 2,000 unit tablet RxNorm: 725259 1 Tablet(s) PO daily No Start Date 05/20/2017 Inactive Benicar 20 mg tablet RxNorm: 432162 1 Tablet(s) PO daily No Start Date 04/05/2015 Inactive Advair Diskus 250 mcg-50 mcg/dose powder for inhalation RxNorm: 1474156 1 INH daily No Start Date 07/25/2015 Inactive Vitamin D2 50,000 unit capsule RxNorm: 772797 1 Capsule(s) PO QW No Start Date 03/24/2015 Inactive vitamin d 2000 QD prednisone 10 mg tablet RxNorm: 583133 1 Tablet(s) PO daily No Start Date 05/26/2015 Inactive azithromycin 250 mg tablet RxNorm: 767257 1 Tablet(s) PO UD two tabs on day #1, the one tab daily x 4 doses No Start Date 08/06/2017 Inactive hydrocodone 10 mg-acetaminophen 325 mg tablet RxNorm: 142429 1-2 Tablet(s) PO Q6 as needed No Start Date 05/09/2015 Inactive Medication Administered Medication Codes Instructions Start Date Status Kenalog 40 mg/mL suspension for injection RxNorm: 7560061 1.5Milliliter 03/18/2018 No longer Active Kenalog 40 mg/mL suspension for injection RxNorm: 8128151 1Milliliter 02/21/2018 No longer Active Kenalog 40 mg/mL suspension for injection RxNorm: 2699121 Milliliter 09/14/2016 No longer Active Kenalog 40 mg/mL suspension for injection RxNorm: 6922062 1.5Milliliter 07/24/2016 No longer Active Kenalog 40 mg/mL suspension for injection RxNorm: 1214709 Milliliter 01/24/2016 No longer Active Kenalog 40 mg/mL suspension for injection RxNorm: 2895801 1Milliliterdaily 07/26/2015 No longer Active Immunizations Vaccine [...] Code Item Item Code Result Date Carmen 410238 CARMEN (GAY) SCREEN NONE DETECTED 07/27/2018 Sed Rate Ord21 ESR 29 mm/hr 07/26/2018 C-Reactive Protein Qnt Crqnt CRP 5.8 mg/dl 07/25/2018 Ra Factor Eyy772 RA FACTOR <10 IU/ml 07/25/2018 Uric Acid Ord77 Uric A 5.2 mg/dL 07/25/2018 Comp Metabolic Bae805 NA 137 mEq/L 07/25/2018 Comp Metabolic Obw218 K 3.9 mEq/L 07/25/2018 Comp Metabolic Jrf156 CL 100 mEq/L 07/25/2018 Comp Metabolic Cjg179 CO2 28.0 mEq/L 07/25/2018 Comp Metabolic Qdj991 ANION GAP 13 07/25/2018 Comp Metabolic Sxl270 GLUCOSE 93 mg/dL 07/25/2018 Comp Metabolic Ygm140 Creat 0.8 mg/dL 07/25/2018 Comp Metabolic Dqm214 eGFR 102 ml/min/1.73m2 07/25/2018 Comp Metabolic Jvp775 BUN 26 mg/dL 07/25/2018 Comp Metabolic Dag546 B/C Ratio 33.3 Ratio 07/25/2018 Comp Metabolic Kcf224 CALCIUM 9.5 mg/dL 07/25/2018 Comp Metabolic Rxt958 ALK PHOS 47 U/L 07/25/2018 Comp Metabolic Dwy028 AST(SGOT) 22 U/L 07/25/2018 Comp Metabolic Fse887 ALT(SGPT) 16 U/L 07/25/2018 Comp Metabolic Zme258 BILI T 0.6 mg/dL 07/25/2018 Comp Metabolic Mmp661 ALBUMIN 3.8 g/dL 07/25/2018 Comp Metabolic Ztk358 TPRO 5.9 g/dL 07/25/2018 Comp Metabolic Gxf345 GLOB 2.2 g/dL 07/25/2018 Comp Metabolic Rhp422 A/G Ratio 1.7 Ratio 07/25/2018 Comp Metabolic Met566 Osmo 278 mOsmo 07/25/2018 Cbc With Differential [...] 29.7 pg 07/25/2018 Cbc With Differential Ord2 Kershaw% 11.0 % 07/25/2018 Cbc With Differential Ord2 [...] 1.52 K/ul 07/25/2018 Cbc With Differential Ord2 [place]haw ABS# 1.2 K/ul 07/25/2018 Cbc With Differential [...] 27.1 % 11/19/2017 Cbc With Differential Ord2 [place]% 13.9 % 11/19/2017 Cbc With Differential Ord2 [...] 2.07 K/ul 11/19/2017 Cbc With Differential Ord2 [place] ABS# 1.1 K/ul 11/19/2017 Cbc With Differential Ord2 Eos ABS# 0.2 K/ul 11/19/2017 Cbc With Differential Ord2 Baso ABS# 0.1 K/ul 11/19/2017 Tsh Ord6 TSH (3rd IS) 1.01 uIU/mL 11/19/2017 Comp Metabolic Oqh559 NA 140 mEq/L 11/19/2017 Comp Metabolic Mpk388 K 3.8 mEq/L 11/19/2017 Comp Metabolic Eru361 CL 105 mEq/L 11/19/2017 Comp Metabolic Jwn714 CO2 30.0 mEq/L 11/19/2017 Comp Metabolic Far702 ANION GAP 9 11/19/2017 Comp Metabolic Tuc640 GLUCOSE 91 mg/dL 11/19/2017 Comp Metabolic Vww377 Creat 0.6 mg/dL 11/19/2017 Comp Metabolic Ijg308 eGFR 133 ml/min/1.73m2 11/19/2017 Comp Metabolic Ufv872 BUN 16 mg/dL 11/19/2017 Comp Metabolic Gus376 B/C Ratio 25.8 Ratio 11/19/2017 Comp Metabolic Qzc124 CALCIUM 9.6 mg/dL 11/19/2017 Comp Metabolic Szc847 ALK PHOS 46 U/L 11/19/2017 Comp Metabolic Brb855 AST(SGOT) 17 U/L 11/19/2017 Comp Metabolic Woy747 ALT(SGPT) 13 U/L 11/19/2017 Comp Metabolic Zei107 BILI T 0.4 mg/dL 11/19/2017 Comp Metabolic Idt204 ALBUMIN 3.6 g/dL 11/19/2017 Comp Metabolic Tct873 TPRO 5.9 g/dL 11/19/2017 Comp Metabolic Big303 GLOB 2.3 g/dL 11/19/2017 Comp Metabolic Usa123 A/G Ratio 1.6 Ratio 11/19/2017 Comp Metabolic Fzs407 Osmo 280 mOsmo 11/19/2017 Uric Acid Ord77 Uric A 5.5 mg/dL 08/08/2017 Urine Culture Ucult Preliminary NO Growth Day 1 11/27/2016 Urine Culture Ucult Complete NO Growth Day 2 11/27/2016 Vitamin D 25 Oh Hpx2185 VITAMIN D, 25 HYDROXY 28.69 ng/mL Total Psa Ord10 PSA 0.03 ng/mL 07/27/2016 Comp Metabolic Iko799 NA 138 mEq/L 07/27/2016 Comp Metabolic Miz687 K 4.1 mEq/L 07/27/2016 Comp Metabolic Gln088 CL 106 mEq/L 07/27/2016 Comp Metabolic Psk625 CO2 26.0 mEq/L 07/27/2016 Comp Metabolic Yvo491 ANION GAP 10 07/27/2016 Comp Metabolic Hbr067 GLUCOSE 102 mg/dL 07/27/2016 Comp Metabolic Yxn469 Creat 0.7 mg/dL 07/27/2016 Comp Metabolic Tra635 eGFR 125 ml/min/1.73m2 07/27/2016 Comp Metabolic Anr315 BUN 24 mg/dL 07/27/2016 Comp Metabolic Bes478 B/C Ratio 36.4 Ratio 07/27/2016 Comp Metabolic Jlw811 CALCIUM 10.2 mg/dL 07/27/2016 Comp Metabolic Xdl619 ALK PHOS 41 U/L 07/27/2016 Comp Metabolic Wgm721 AST(SGOT) 17 U/L 07/27/2016 Comp Metabolic Fzc400 ALT(SGPT) 14 U/L 07/27/2016 Comp Metabolic Tub849 BILI T 0.5 mg/dL 07/27/2016 Comp Metabolic Ucw660 ALBUMIN 3.9 g/dL 07/27/2016 Comp Metabolic Gds530 TPRO 6.3 g/dL 07/27/2016 Comp Metabolic Ctb739 GLOB 2.4 g/dL 07/27/2016 Comp Metabolic Mxt412 A/G Ratio 1.6 Ratio 07/27/2016 Comp Metabolic Dlz109 Osmo 280 mOsmo 07/27/2016 Cbc With Differential [...] 29.3 pg 07/27/2016 Cbc With Differential Ord2 [place]% 10.1 % 07/27/2016 Cbc With Differential Ord2 [...] 1.79 K/ul 07/27/2016 Cbc With Differential Ord2 [place] ABS# 0.8 K/ul 07/27/2016 Cbc With Differential Ord2 Eos ABS# 0.1 K/ul 07/27/2016 Cbc With Differential Ord2 Baso ABS# 0.0 K/ul 07/27/2016 Tsh Ord6 hTSH II 1.21 uIU/mL 07/27/2016 Lipid Ord30 CHOL 184 mg/dL 07/27/2016 Lipid Ord30 HDL 53.0 mg/dl 07/27/2016 Lipid Ord30 TRIG 106 mg/dL 07/27/2016 Lipid Ord30 LDL 110 mg/dL 07/27/2016 Lipid Ord30 C/HDL 3.5 Ratio 07/27/2016 Comp Metabolic Hfr518 NA 137 mEq/L 07/26/2015 Comp Metabolic Hnn849 K 3.7 mEq/L 07/26/2015 Comp Metabolic Caz418 CL 103 mEq/L 07/26/2015 Comp Metabolic Vpj816 CO2 26.0 mEq/L 07/26/2015 Comp Metabolic Ksm096 ANION GAP 12 07/26/2015 Comp Metabolic Eop174 GLUCOSE 99 mg/dL 07/26/2015 Comp Metabolic Lml203 Creat 0.8 mg/dL 07/26/2015 Comp Metabolic Mph570 eGFR 103 ml/min/1.73m2 07/26/2015 Comp Metabolic Ucs357 BUN 22 mg/dL 07/26/2015 Comp Metabolic Puh281 B/C Ratio 28.2 Ratio 07/26/2015 Comp Metabolic Brl540 CALCIUM 9.7 mg/dL 07/26/2015 Comp Metabolic Ebl827 ALK PHOS 40 U/L 07/26/2015 Comp Metabolic Xyd621 AST(SGOT) 26 U/L 07/26/2015 Comp Metabolic Cua164 ALT(SGPT) 20 U/L 07/26/2015 Comp Metabolic Baq989 BILI T 0.5 mg/dL 07/26/2015 Comp Metabolic Yce343 ALBUMIN 3.9 g/dL 07/26/2015 Comp Metabolic Fku436 TPRO 6.4 g/dL 07/26/2015 Comp Metabolic Erz657 GLOB 2.5 g/dL 07/26/2015 Comp Metabolic Diy034 A/G Ratio 1.6 Ratio 07/26/2015 Comp Metabolic Int351 Osmo 277 mOsmo 07/26/2015 Tsh Ord6 hTSH [...] 0.01 ng/mL 07/26/2015 Vitamin D 25 Oh Srm0435 VITAMIN D, 25 HYDROXY 31.47 ng/mL Review [...] 1995 Ears/Nose/Throat oral cavity/pharynx/larynx Overall: hypopharynx benign 11/19/2017 [...] lips 05/22/2017 None Full Exam - General 1995 Ears/Nose/Throat lips/teeth/gingiva Overall: normal dentition 05/22/2017 None Full Exam - General 1994 Ears/Nose/Throat oral cavity/pharynx/larynx Overall: oral mucosa clear 05/22/2017 None Full Exam - General 1995 Ears/Nose/Throat oral cavity/pharynx/larynx Overall: oropharyngeal mucosa clear 05/22/2017 None Full Exam - General 1995 Ears/Nose/Throat oral cavity/pharynx/larynx Overall: hypopharynx benign 05/22/2017 [...] CPT -4: G0439 08/05/2018 DRAIN/INJECT JOINT/BURSA CPT-4: 66655 03/18/2018 TRIAMCINOLONE ACET INJ NOS CPT-4: J3301 03/18/2018 THER/PROPH/DIAG INJ SC/IM CPT-4: 50059 02/21/2018 TRIAMCINOLONE ACET INJ NOS CPT-4: J3301 02/21/2018 PPPS, SUBSEQ VISIT CPT -4: G0439 05/22/2017 TRIAMCINOLONE ACET INJ NOS CPT-4: J3301 09/14/2016 TRIAMCINOLONE ACET INJ NOS CPT-4: J3301 07/24/2016 THER/PROPH/DIAG INJ SC/IM CPT-4: 90435 07/24/2016 TRIAMCINOLONE ACET INJ NOS CPT-4: J3301 01/24/2016 TRIAMCINOLONE ACET INJ NOS CPT-4: J3301 07/26/2015 THER/PROPH/DIAG INJ SC/IM CPT-4: 00445 07/26/2015 Vital Signs Date Vital 08/05/2018 Blood Pressure 1: 118/64 Code : 8480-6 BMI: 26.2 Code : 27473-9 Heart Rate 1 : 66 bpm Height: 6'4" SpO2: 97% Waist Measure (cm): 81 cm Weight: 215 lbs 07/25/2018 Blood Pressure 1: 128/78 Code : 8480-6 BMI: 26.2 Code : 48729-6 Heart Rate 1 : 68 bpm Height: 6'4" SpO2: 95% Weight: 215 lbs 07/22/2018 Blood Pressure 1: 142/78 Code : 8480-6 BMI: 26.7 Code : 08547-2 Heart Rate 1 : 64 bpm Height: 6'4" SpO2: 99% Weight: 219 lbs 03/18/2018 Blood Pressure 1: 136/84 Code : 8480-6 BMI: 26.5 Code : 68363-0 Heart Rate 1 : 79 bpm Height: 6'4" SpO2: 99% Weight: 218 lbs 11/27/2017 Blood Pressure 1: 132/64 Code : 8480-6 BMI: 27.8 Code : 80804-5 Heart Rate 1 : 41 bpm Height: 6'4" SpO2: 97% Weight: 228 lbs 11/19/2017 Blood Pressure 1: 140/88 Code : 8480-6 Blood Pressure 1: 148/76 Code: 8480-6 BMI: 27.3 Code: 57656-2 Heart Rate 1: 58 bpm Height: 6'4" SpO2: 98% Weight: 224 lbs 08/08/2017 Blood Pressure 1: 130/80 Code : 8480-6 BMI: 26.5 Code : 32227-8 Heart Rate 1 : 71 bpm Height: 6'4" SpO2: 98% Weight: 218 lbs 05/22/2017 Blood Pressure 1: 142/78 Code : 8480-6 BMI: 28.0 Code : 57861-3 Heart Rate 1 : 77 bpm Height: 6'4" SpO2: 94% Waist Measure (cm): 91 cm Weight: 230 lbs 05/21/2017 Blood Pressure 1: 144/72 Code : 8480-6 BMI: 28.1 Code : 44153-5 Heart Rate 1 : 74 bpm Height: 6'4" SpO2: 95% Weight: 230 lbs 8 oz 11/23/2016 Blood Pressure 1: 136/74 Code : 8480-6 BMI: 29.9 Code : 74917-4 Heart Rate 1 : 59 bpm Height: 6'4" SpO2: 94% Weight: 246 lbs 11/20/2016 Blood Pressure 1: 130/80 Code : 8480-6 BMI: 29.9 Code : 30111-9 Heart Rate 1 : 75 bpm Height: 6'4" SpO2: 98% Weight: 246 lbs 11/10/2016 Blood Pressure 1: 140/82 Code : 8480-6 BMI: 29.7 Code : 62773-9 Heart Rate 1 : 64 bpm Height: 6'4" SpO2: 94% Weight: 244 lbs 09/14/2016 Blood Pressure 1: 130/82 Code : 8480-6 BMI: 27.4 Code : 20820-0 Heart Rate 1 : 74 bpm Height: 6'4" SpO2: 96% Weight: 225 lbs 07/24/2016 Blood Pressure 1: 128/78 Code : 8480-6 BMI: 27.4 Code : 89690-7 Heart Rate 1 : 78 bpm Height: 6'4" SpO2: 94% Weight: 225 lbs 01/24/2016 Blood Pressure 1: 124/88 Code : 8480-6 BMI: 29.5 Code : 42107-1 Heart Rate 1 : 68 bpm Height: 6'4" SpO2: 98% Weight: 242 lbs 07/26/2015 Blood Pressure 1: 150/82 Code : 8480-6 Blood Pressure 1: 138/82 Code: 8480-6 BMI: 29.9 Code: 44948-8 Heart Rate 1: 68 bpm Height: 6'4" SpO2: 94% Weight: 246 lbs 03/24/2015 Blood Pressure 1: 114/84 Code : 8480-6 BMI: 29.8 Code : 66918-4 Heart Rate 1 : 67 bpm Height: [...] data Encounters Encounter Performer Location Codes Date 89485 EST. PATIENT, LEVEL IV Diagnosis: Pain in left wrist[ICD10: M25.532] Diagnosis: Other malaise[ICD10: R53.81] Diagnosis: Other fatigue[ICD10: R53.83] [facility] CPT-4 : 53916 07/25/2018 ([id number] 94095 EST. PATIENT, LEVEL IV Diagnosis: Essential (primary) hypertension[ICD10: I10] Diagnosis: Chronic pain syndrome[ICD10: G89.4] Diagnosis: Low back pain[ICD10: M54.5] [facility] MD [facility] CPT- 4: 23211 07/22/2018 ([id number]) 11758 EST. 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 PATIENT, LEVEL III Diagnosis: Pain in right knee[ICD10: M25.561] L[facility] MD [facility] CPT-4: 81515 11/27/2017 ([id number]) [id number] EST. PATIENT, LEVEL IV Diagnosis: Essential (primary) hypertension[ICD10: I10] Diagnosis: Chronic pain syndrome[ICD10: G89.4] Diagnosis: Vitamin D deficiency, unspecified[ICD10: E55.9] [facility] MD, [facility] CPT-4: 28920 11/19/2017 ([id number]) [id number] EST. PATIENT, LEVEL III Diagnosis: Olecranon bursitis, right elbow[ICD10: M70.21] [facility] MD [facility] CPT-4: 49024 08/08/2017 ([id number]) 98431 EST. PATIENT, LEVEL IV Diagnosis: Essential (primary) hypertension[ICD10: I10] Diagnosis: Low back pain[ICD10: M54.5] Beverly Hussein MD, [facility] CPT- 4: 54256 05/21/2017 [id number] EST. PATIENT, LEVEL III Diagnosis: Calculus of kidney[ICD10: N20.0] Lizz Husesin MD, [facility] CPT- 4: 60087 11/23/2016 ([id number]) 39511 EST. PATIENT, LEVEL III Diagnosis: Essential (primary) hypertension[ICD10: I10] Beverly Hussein MD, [facility] CPT-4: 53098 11/20/2016 [id number] EST. PATIENT, LEVEL III Diagnosis: Nausea[ICD10: R11.0] Lizz Hussein MD, [facility] CPT-4: 34352 11/10/2016 ([id number]) 26684 EST. PATIENT, LEVEL III Diagnosis: Allergic rhinitis due to pollen[ICD10: J30.1] Diagnosis: Other benign neoplasm of skin of unspecified part of face[ICD10: D23.30] Kelsy Hussein MD, [facility] CPT-4: 93512 ([id number]) [id number] EST. PATIENT, LEVEL IV Diagnosis: Essential (primary) hypertension[ICD10: I10] Diagnosis: Vitamin D deficiency, unspecified[ICD10: E55.9] Diagnosis: Low back pain[ICD10: M54.5] Diagnosis: Mild intermittent asthma with (acute) exacerbation[ICD10: J45.21] Kelsy Hussein MD, [facility] CPT-4: 35680 07/24/2016 ([id number]) 12262 EST. PATIENT, LEVEL IV Diagnosis: Essential (primary) hypertension[ICD10: I10] Diagnosis: Allergic rhinitis due to pollen[ICD10: J30.1] Diagnosis: Low back pain[ICD10: M54.5] Kelsy Hussein MD, [facility] CPT-4: 69518 01/24/2016 ([id number]) 49631 EST. PATIENT, LEVEL IV Diagnosis: Essential (primary) hypertension[ICD10: I10] Diagnosis: Vitamin D deficiency, unspecified[ICD10: E55.9] Diagnosis: Chronic pain syndrome[ICD10: G89.4] Diagnosis: Allergic rhinitis, unspecified[ICD10: J30.9] Kelsy Hussein MD, [facility] CPT-4: 26312 07/26/2015 ([id number]) OFFICE VISIT, NEW - LEVEL 4 Diagnosis: ESSENTIAL HYPERTENSION[ICD9: 401.9] Diagnosis: CHRONIC PAIN SYNDROME[ICD9: 338.4] Diagnosis: Skin change[ICD9: 782.9] Beverly Hussein MD, [facility] CPT-4: 93021 03/24/2015 Plan of Care Planned Activity Notes Codes Status Date Appointment: Kelsy Hsu WPtel: [address] [place], [place] [phone] (15 min) Moderate 08/19/2018 Appointment: Lizz Wilks WPtel: [phone] [facility] (15 min) Moderate 08/07/2018 Visit Plan: Medicare [...] care surrogate. 08/05/2018 Appointment: Lizz Wilks WPtel: [facility] [place] [address] - Annual Wellness Visit 08/05/2018 Patient Education: [...] or concerns. 07/25/2018 Appointment: Lizz Wilks WPtel: [phone] [facility] (15 min) Moderate 07/25/2018 Patient Education: Patient [...] - 07/22/2018 [facility]ment: [phone] ([facility] min) Moderate 07/22/2018 Patient Education: [...] thereafter. 03/18/2018 App[facility]ment: [phone] [place] (15 min) Moderate 03/18/2018 Patient [...] improve. 11/27/2017 [phone] [place] (30 min) Complex 11/27/2017 Patient Education: Patient Medication Summary Completed 11/27/2017 Care Plan: X-RAY EXAM OF KNEE 3 LOINC : 59861-0 Pending 11/27/2017 Visit Plan: Hypertension -usually pt [...] current medications. 11/19/2017 Appointment: Beverly Hussein WPtel: [facility] (15 min) Moderate 11/19/2017 Patient Education: Patient Medication Summary Completed 11/19/2017 Visit Plan: [place] tim - recommended patient to have uric acid [...] care surrogate. 05/22/2017 Appointment: Kelsy Hsu WPtel: [phone] [facility] - Annual Wellness Visit 05/22/2017 Patient Education: [...] into Yoga. 05/21/2017 Appointment: Beverly Hussein WPtel: [phone] [facility] (15 min) Moderate 05/21/2017 Patient Education: Patient Medication Summary Completed 05/21/2017 Patient Education: Hypertension Completed 05/21/2017 Care Plan: X-RAY EXAM OF ABDOMEN LOINC : 67834-8 Pending 12/17/2016 Visit Plan: Left flank pain - KUB shows renal caliculi - will refer to Dr. Robledo. Pt is to notify clinic with any changes or concerns. 11/23/2016 Appointment: [phone] (15 min) Moderate 11/23/2016 Patient Education: [...] cheek 11/20/2016 Appointment: [phone] (15 min) Moderate 11/20/2016 Patient Education: [...] esophageal reflux. 11/10/2016 Appointment: Lizz Wilks WPtel: [facility] (30 min) Complex 11/10/2016 Patient Education: Patient Medication Summary Completed 11/10/2016 Referral: Poncho Mock [id number] Referral Completed 11/03/2016 Visit Plan: Cyst-right cheek-refer to Dr Mock for removal Daeliyjci-cxbrng-dhjerzith symptoms-kenalog injection today in the office- samples of advair provided and instructed on use. 09/14/2016 Appointment: Kelsy Hsu WPtel: [phone] (30 min) Complex 09/14/2016 Patient Education: Patient Medication Summary Completed 09/14/2016 Care Plan: Referral Order SNOMED-CT : [id number] Pending 09/14/2016 Visit Plan: Hypertension - well [...] prn use 07/24/2016 Appointment: Kelsy Hsu WPtel: [phone] (15 min) Moderate 07/24/2016 Patient Education: [...] spray. Kenalog injection today in the office Jtbem-Tcanps-bwpzpp to symbicort Low back pain-recommend stretches for [...] Patient Education: Hypertension Completed 03/24/2015 [facility] [place] [facility] Requested Instructions Comment . [...] to twice daily Low back-hip pain-refer to [facility] for physical therapy-refill hydrocodone for prn use [...] spray. Kenalog injection today in the office Vlfct-Siucyr-vnwpom to symbicort Low back pain-recommend stretches for [...] Cyst-right cheek-refer to Dr Mock for removal Slmpndlee-djapqs-fcqudcmjd symptoms-kenalog injection today in the office- samples [...]
--- OUTSIDE RECORDS SUMMARY | 2018-10-09 14:53 | XMS REPORT | Continuity of Care Document ---
Author Author [facility] Organization [facility] Address Unknown Phone Unavailable Allergies Active Description Code Type Severity Reaction Onset Reported/Identified Relationship to Patient Clinical Status Yes No Known Drug Allergies [id number] Drug Allergy Unknown N/A 08/14/2018 Medications There is no data. 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Ot F17.210 NICOTINE DEPENDENCE, CIGARETTES, UNCOMPL 12/01/2016 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Ot N20.0 CALCULUS OF KIDNEY 12/01/2016 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Ot R11.0 NAUSEA 12/01/2016 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Ot R11.2 NAUSEA WITH VOMITING, UNSPECIFIED 12/01/2016 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Ot Z79.899 OTHER [employer] (CURRENT) DRUG THERAPY 12/01/2016 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Ot Z98.890 OTHER SPECIFIED POSTPROCEDURAL STATES 12/05/2016 NATE BARRETO MD Ot N20.0 CALCULUS OF KIDNEY 12/14/2016 SALAS BALLARD APRN Ot N20.0 CALCULUS OF KIDNEY 12/14/2016 SALAS BALLARD [employer] WORKER Ot R93.49 ABN RADLGC FINDINGS ON DX [...] N20.1 CALCULUS OF URETER 12/21/2016 SALAS BALLARD [employer] WORKER Ot R10.84 GENERALIZED ABDOMINAL PAIN 12/21/2016 NATE BARRETO MD Ot N20.0 CALCULUS OF KIDNEY 12/26/2016 NATE BARRETO MD Ot 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 12/26/2016 NATE BARRETO MD Ot N20.1 CALCULUS OF URETER 12/28/2016 NATE BARRETO MD Ot 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 12/28/2016 NATE BARRETO MD Ot N20.1 CALCULUS OF URETER 12/29/2016 SALAS BALLARD [employer] WORKER Ot N20.0 CALCULUS OF KIDNEY 12/29/2016 SALAS BALLARD [employer] WORKER Ot R93.49 ABN RADLGC FINDINGS ON DX IMAGING OF OTH 01/01/2017 NATE BARRETO MD Ot N20.0 CALCULUS OF KIDNEY 01/05/2017 SALAS BALLARD APRN Ot R10.84 GENERALIZED ABDOMINAL [...] 31.0-31.9, ADULT 04/02/2017 JESSICA MCGOWAN Ot Z79.52 [employer] (CURRENT) USE OF SYSTEMIC STER 04/02/2017 JESSICA [...] ADULT 05/21/2017 JESSICA MCGOWAN N Ot Z79.52 [facility] (CURRENT) USE OF SYSTEMIC STER 05/21/2017 ROSLYNJESSICA N Ot Z85.46 PERSONAL HISTORY OF MALIGNANT NEOPLASM O 06/04/2017 JESSICA MCGOWAN N Ot 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 06/04/2017 JESSICA MCGOWAN N Ot E66.9 OBESITY, UNSPECIFIED 06/04/2017 ROSLYNJESSICA STARK N Ot J45.909 UNSPECIFIED ASTHMA, UNCOMPLICATED 06/04/2017 ROSLYNJESSICA N Ot L94.9 LOCALIZED CONNECTIVE TISSUE DISORDER, UN 06/04/2017 ROSLYNEJSSICA N Ot Z68.31 BODY MASS INDEX (BMI) 31.0-31.9, ADULT 06/04/2017 ROSLYNJESSICA STARK N Ot Z79.52 [employer] (CURRENT) USE OF SYSTEMIC STER 06/04/2017 ROSLYNJESSICA [...] 31.0-31.9, ADULT 06/23/2017 ROSLYNJESSICA N Ot Z79.52 [employer] (CURRENT) USE OF SYSTEMIC STER 06/23/2017 ROSLYNJESSICA N Ot Z85.46 PERSONAL HISTORY OF MALIGNANT NEOPLASM O 11/28/2017 ELIO, SALAS M [employer]ER [employer] WORKER Ot M25.461 EFFUSION, RIGHT KNEE 11/28/2017 ELIO SALAS M [employer] WORKER Ot Z98.890 OTHER SPECIFIED POSTPROCEDURAL STATES 12/18/2017 SALAS BALLARD [employer] WORKER Ot M25.461 EFFUSION, RIGHT KNEE 12/18/2017 SALAS BALLARD [employer] WORKER Ot Z98.890 OTHER SPECIFIED POSTPROCEDURAL STATES 08/07/2018 TRINITY TURNER, NORM Sood Ot V72.84 EXAM PRE-OPERATIVE NOS 08/07/2018 SALAS BALLARD [employer] WORKER Ot N20.0 CALCULUS OF KIDNEY 08/07/2018 SALAS BALLARD APRN Ot R93.49 ABN RADLGC FINDINGS ON DX IMAGING OF OTH 08/07/2018 SALAS BALLARD APRN Ot R10.84 GENERALIZED ABDOMINAL PAIN 08/07/2018 MARY LOU TRUNER, NATE Fan Ot N20.0 CALCULUS OF KIDNEY [...] 31.0-31.9, ADULT 08/07/2018 JESSICA MCGOWAN Ot Z79.52 [facility] (CURRENT) USE OF SYSTEMIC STER 08/07/2018 JESSICA MCGOWAN Ot Z85.46 PERSONAL HISTORY OF MALIGNANT NEOPLASM O 08/07/2018 SALAS BALLARD WAFER [employer] WORKER Ot M25.461 EFFUSION, RIGHT KNEE 08/07/2018 SALAS BALLARD [employer]ER [employer] WORKER Ot Z98.890 OTHER SPECIFIED POSTPROCEDURAL STATES 08/09/2018 BREA TURNER, LYDIA Ot D89.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 08/09/2018 LYDIA GUIDRY MD, Ot G47.30 SLEEP APNEA, UNSPECIFIED 08/09/2018 LYIDA GUIDRY MD, Ot J45.909 UNSPECIFIED ASTHMA, UNCOMPLICATED [...] Ot Z87.442 PERSONAL HISTORY OF URINARY CALCULI 08/14/2018 JESSICA MCGOWAN Ot 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 08/14/2018 JESSICA MCGOWAN Ot E66.9 OBESITY, UNSPECIFIED 08/14/2018 JESSICA MCGOWAN Ot J45.909 UNSPECIFIED ASTHMA, UNCOMPLICATED 08/14/2018 JESSICA MCGOWAN Ot L94.9 LOCALIZED CONNECTIVE TISSUE DISORDER, UN 08/14/2018 JESSICA MCGOWAN Ot Z68.31 BODY MASS INDEX (BMI) 31.0-31.9, ADULT 08/14/2018 JESSICA MCGOWAN Ot Z79.52 [facility] (CURRENT) USE OF SYSTEMIC STER 08/14/2018 JESSICA MCGOWAN Ot Z85.46 PERSONAL HISTORY OF MALIGNANT NEOPLASM O 08/20/2018 JAMISON BILLY MD, Ot B96.4 PROTEUS (MIRABILIS) (MORGANII) CAUSING D 08/20/2018 JAMISON BILLY MD, Ot G47.33 OBSTRUCTIVE SLEEP APNEA (ADULT) (PEDIATR 08/20/2018 JAMISON BILLY MD, Ot G89.29 OTHER CHRONIC PAIN 08/20/2018 JAMISON BILLY MD Ot I10 ESSENTIAL (PRIMARY) HYPERTENSION 08/20/2018 JAMISON BILLY MD, Ot J45.909 UNSPECIFIED ASTHMA, UNCOMPLICATED 08/20/2018 JAMISON BILLY MD Ot 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 08/20/2018 JAMISON BILLY MD, Ot M19.91 PRIMARY OSTEOARTHRITIS, UNSPECIFIED SITE 08/20/2018 JAMISON BILLY MD, Ot M35.9 SYSTEMIC INVOLVEMENT OF CONNECTIVE TISSU 08/20/2018 JAMISON BILLY MD, Ot M54.5 LOW BACK PAIN 08/20/2018 JAMSION BILLY MD, Ot N39.0 URINARY TRACT INFECTION, SITE NOT SPECIF 08/20/2018 JAMISON BILLY MD, Ot R35.0 FREQUENCY OF MICTURITION 08/20/2018 JAMISON BILLY MD Ot Z79.52 [facility] (CURRENT) USE OF SYSTEMIC STER 08/20/2018 JAMISON BILLY MD Ot Z85.46 PERSONAL HISTORY OF MALIGNANT NEOPLASM O 08/20/2018 JAMISON BILLY MD Ot Z85.51 PERSONAL HISTORY OF MALIGNANT NEOPLASM O 08/20/2018 JAMISON BILLY MD Ot Z85.828 PERSONAL HISTORY OF OTHER MALIGNANT NEOP 08/20/2018 JAMISON BILLY MD Ot Z87.440 PERSONAL HISTORY OF URINARY (TRACT) INFE 08/20/2018 JAMISON BILLY MD Ot 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( 08/22/2018 TRINITY TURNER, NORM Sood Ot V72.84 EXAM PRE-OPERATIVE NOS 08/22/2018 SALAS BALLARD APRN Ot N20.0 CALCULUS OF KIDNEY 08/22/2018 SALAS BALLARD APRN Ot R93.49 ABN RADGC FINDINGS ON DX IMAGING OF OTH 08/22/2018 SALAS BALLARD APRN Ot R10.84 GENERALIZED ABDOMINAL PAIN 08/22/2018 NATE BARRETO MD Ot N20.0 CALCULUS OF KIDNEY 08/22/2018 NATE BARRETO MD Ot Z01.818 ENCOUNTER FOR OTHER PREPROCEDURAL EXAMIN 08/22/2018 NATE BARRETO MD Ot N20.2 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 08/22/2018 NATE BARRETO MD Ot N20.0 CALCULUS OF KIDNEY 08/22/2018 JESSICA MCGOWAN Ot 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 08/22/2018 JESSICA MCGOWAN Ot E66.9 OBESITY, UNSPECIFIED 08/22/2018 JESSICA MCGOWAN Ot J45.909 UNSPECIFIED ASTHMA, UNCOMPLICATED 08/22/2018 JESSICA MCGOWAN Ot L94.9 LOCALIZED CONNECTIVE TISSUE DISORDER, UN 08/22/2018 JESSICA MCGOWAN Ot Z68.31 BODY MASS INDEX (BMI) 31.0-31.9, ADULT 08/22/2018 JESSICA MCGOWAN Ot Z79.52 [facility] (CURRENT) USE OF SYSTEMIC STER 08/22/2018 JESSICA MCGOWAN Ot Z85.46 PERSONAL HISTORY OF MALIGNANT NEOPLASM O 08/22/2018 SALAS BALLARD APRN Ot M25.461 EFFUSION, RIGHT KNEE 08/22/2018 SALAS BALLARD APRN Ot Z98.890 OTHER SPECIFIED POSTPROCEDURAL STATES 08/26/2018 ERLINDA MCGEE MD Ot G47.33 OBSTRUCTIVE SLEEP APNEA (ADULT) (PEDIATR 08/26/2018 ERLINDA MCGEE MD Ot I34.0 NONRHEUMATIC MITRAL (VALVE) INSUFFICIENC 08/26/2018 ERLINDA MCGEE MD Ot I48.92 UNSPECIFIED ATRIAL FLUTTER 08/26/2018 ERLINDA MCGEE MD Ot I51.7 CARDIOMEGALY 08/26/2018 ERLINDA MCGEE MD Ot R06.02 SHORTNESS OF BREATH 08/27/2018 SALAS BALLARD APRN Ot K57.30 DVRTCLOS OF LG INT W/O PERFORATION OR AB 08/27/2018 SALAS BALLARD APRN Ot K57.92 DVTRCLI OF INTEST, PART UNSP, W/O PERF O 08/27/2018 SALAS BALLARD APRN Ot Z96.89 PRESENCE OF OTHER SPECIFIED FUNCTIONAL I 09/04/2018 LYDIA GUIDRY MD Ot R11.0 NAUSEA 09/04/2018 LYDIA GUIDRY MD Ot R14.0 ABDOMINAL DISTENSION (GASEOUS) 09/04/2018 LYDIA GUIDRY MD Ot Z87.19 PERSONAL HISTORY OF OTHER DISEASES OF TH 09/21/2018 SALAS BALLARD APRN Ot K57.30 DVRTCLOS OF LG INT W/O PERFORATION OR AB 09/21/2018 SALAS BALLARD APRN Ot K57.92 DVTRCLI OF INTEST, PART UNSP, W/O PERF O 09/21/2018 SALAS BALLARD APRN Ot Z96.89 PRESENCE OF OTHER SPECIFIED FUNCTIONAL I 09/26/2018 LYDIA GUIDRY MD Ot R11.0 NAUSEA 09/26/2018 LYDIA GUIDRY MD, Ot R14.0 ABDOMINAL DISTENSION (GASEOUS) 09/26/2018 LYDIA GUIDRY MD Ot Z87.19 PERSONAL HISTORY OF OTHER DISEASES OF TH 10/03/2018 LYDIA GUIDRY MD Ot Z01.818 ENCOUNTER FOR OTHER PREPROCEDURAL EXAMIN 10/03/2018 ERLINDA MCGEE MD Ot G47.33 OBSTRUCTIVE SLEEP APNEA (ADULT) (PEDIATR 10/03/2018 ERLINDA MCGEE MD, Ot I34.0 NONRHEUMATIC MITRAL (VALVE) INSUFFICIENC 10/03/2018 ERLINDA MCGEE MD, Ot I48.92 UNSPECIFIED ATRIAL FLUTTER 10/03/2018 ERLINDA MCGEE MD Ot I51.7 CARDIOMEGALY 10/03/2018 ERLINDA MCGEE MD Ot R06.02 SHORTNESS OF BREATH 10/03/2018 LYDIA GUIDRY MD Ot Z01.818 ENCOUNTER FOR OTHER PREPROCEDURAL EXAMIN 10/03/2018 LYDIA GUIDRY MD, Ot Z01.818 ENCOUNTER FOR OTHER PREPROCEDURAL EXAMIN 10/04/2018 SALAS BALLARD APRN Ot K57.30 DVRTCLOS OF LG INT W/O PERFORATION OR AB 10/04/2018 SALAS BALLARD APRN Ot K57.92 DVTRCLI OF INTEST, PART UNSP, W/O PERF O 10/04/2018 SALAS BALLARD APRN Ot Z96.89 PRESENCE OF OTHER SPECIFIED FUNCTIONAL I 10/07/2018 LYDIA GUIDRY MD Ot Z01.818 ENCOUNTER FOR OTHER PREPROCEDURAL EXAMIN Procedures Code Description Performed By Performed On 88.72 DX ULTRASOUND-HEART 01/04/2008 99.61 ATRIAL CARDIOVERSION 01/04/2008 [id number] DRAINAGE OF PELVIC CAVITY WITH DRAIN DEV 08/19/2018 Results Test Result Range Methicillin resistant Staphylococcus [...] Complete urinalysis with reflex to culture - 08/07/18 11:33 Urine color determination CAITLIN NRG Urine [...] culture - 08/07/18 11:33 Bacterial urine culture [id number] NRG COLONY COUNT >100,000/ML NRG FTX;REPORTABLE REPORTED 08/08/18 09:05 NR Complete blood count (CBC) with automated white [...] g/dL 3.2-4.5 CALCIUM CORRECTED 10.1 mg/dL 8.5-10.1 Complete blood count (CBC) with automated white blood cell (WBC) differential - 08/14/18 10:55 Blood leukocytes automated count (number/volume) 10.9 10*3/uL 4.3-11.0 Blood erythrocytes automated count (number/volume) 4.36 10*6/uL 4.35-5.85 Venous blood hemoglobin measurement (mass/volume) 12.4 g/dL 13.3-17.7 Blood hematocrit (volume fraction) 38 % 40-54 Automated erythrocyte mean corpuscular volume 88 [foz_us] 80-99 Automated erythrocyte mean corpuscular hemoglobin (mass per erythrocyte) 28 pg 25-34 Automated erythrocyte mean corpuscular hemoglobin concentration measurement ( mass/volume) 32 g/dL 32-36 Automated erythrocyte distribution width ratio 14.1 % 10.0-14.5 Automated blood platelet count (count/volume) 244 10*3/uL 130-400 Automated blood platelet mean volume measurement 8.8 [foz_us] 7.4-10.4 Automated blood neutrophils/100 leukocytes 79 % 42-75 Automated blood lymphocytes/100 leukocytes 11 % 12-44 Blood monocytes/100 leukocytes 9 % 0-12 Automated blood eosinophils/100 leukocytes 1 % 0-10 Automated blood basophils/100 leukocytes 0 % 0-10 Blood neutrophils automated count (number/volume) 8.6 10*3 1.8-7.8 Blood lymphocytes automated count (number/volume) 1.2 10*3 1.0-4.0 Blood monocytes automated count (number/volume) 1.0 10*3 0.0-1.0 Automated eosinophil count 0.1 10*3/uL 0.0-0.3 Automated blood basophil count (count/volume) 0.0 10*3/uL 0.0-0.1 PT panel in platelet poor plasma by coagulation assay - 08/14/18 10:55 Prothrombin time (PT) in platelet poor plasma by coagulation assay 14.9 s 12.2-14.7 INR in platelet poor plasma or blood by coagulation assay 1.2 0.8-1.4 Activated partial thromboplastin time (aPTT) in platelet poor plasma bycoagulation assay - 08/14/18 10:55 Activated partial thromboplastin time (aPTT) in platelet poor plasma bycoagulation assay 32 s 24-35 Blood lactic acid measurement (moles/volume) - 08/14/18 10:55 Blood lactic acid measurement (moles/volume) 0.53 mmol/L 0.50-2.00 Comprehensive metabolic panel - 08/14/18 10:55 Serum or plasma sodium measurement (moles/volume) 138 mmol/L 135-145 Serum or plasma potassium measurement (moles/volume) 4.2 mmol/L 3.6-5.0 Serum or plasma chloride measurement (moles/volume) 101 mmol/L 98-107 Carbon dioxide 31 mmol/L 21-32 Serum or plasma anion gap determination (moles/volume) 6 mmol/L 5-14 Serum or plasma urea nitrogen measurement (mass/volume) 19 mg/dL 7-18 Serum or plasma creatinine measurement (mass/volume) 0.75 mg/dL 0.60-1.30 Serum or plasma urea nitrogen/creatinine mass ratio 25 NRG Serum or plasma creatinine measurement with calculation of estimated glomerular filtration rate > NRG Serum or plasma glucose measurement (mass/volume) 98 mg/dL 70-105 Serum or plasma calcium measurement (mass/volume) 10.1 mg/dL 8.5-10.1 Serum or plasma total bilirubin measurement (mass/volume) 0.4 mg/dL 0.1-1.0 Serum or plasma alkaline phosphatase measurement (enzymatic activity/volume) 57 U/L 40-136 Serum or plasma aspartate aminotransferase measurement (enzymatic activity/ volume) 17 U/L 5-34 Serum or plasma alanine aminotransferase measurement (enzymatic activity/volume ) 20 U/L 0-55 Serum or plasma protein measurement (mass/volume) 6.3 g/dL 6.4-8.2 Serum or plasma albumin measurement (mass/volume) 3.3 g/dL 3.2-4.5 CALCIUM CORRECTED 10.7 mg/dL 8.5-10.1 Serum or plasma C reactive protein measurement (mass/volume) - 08/14/18 10:55 Serum or plasma C reactive protein measurement (mass/volume) 6.16 mg /dL 0.00-0.50 Serum or plasma lithium measurement (moles/volume) - 08/14/18 10:55 BNP level 41.7 pg/mL <100.0 Bacterial blood culture - 08/14/18 10:55 Bacterial blood culture NG NRG Complete urinalysis with reflex to culture - 08/14/18 11:18 Urine color determination YELLOW NRG Urine clarity determination CLEAR NRG Urine pH measurement by test strip 7 5-9 Specific gravity of urine by test strip 1.005 1.016- 1.022 Urine protein assay by test strip, semi-quantitative NEGATIVE NEGATIVE Urine glucose detection by automated test [...] count by microscopy (number/high power field ) NONE NRG Bacteria detection in urine sediment by light microscopy NEGATIVE NRG Squamous epithelial cells detection in urine sediment by light microscopy RARE NRG Crystals detection in urine sediment by light microscopy NONE NRG Casts detection in urine sediment by light microscopy NONE NRG Mucus detection in urine sediment by light microscopy NEGATIVE NRG Complete urinalysis with reflex to culture NO NRG Bacterial urine culture - 08/14/18 11:18 Bacterial urine culture NG NRG Bacterial blood culture - 08/14/18 11:20 Bacterial blood culture NG NRG Complete blood count (CBC) with automated white blood cell (WBC) differential - 08/15/18 05:25 Blood leukocytes automated count (number/volume) 11.8 10*3/uL 4.3-11.0 Blood erythrocytes automated count (number/volume) 3.80 10*6/uL 4.35-5.85 Venous blood hemoglobin measurement (mass/volume) 11.0 g/dL 13.3-17.7 Blood hematocrit (volume fraction) 33 % 40-54 Automated erythrocyte mean corpuscular volume 88 [foz_us] 80-99 Automated erythrocyte mean corpuscular hemoglobin (mass per erythrocyte) 29 pg 25-34 Automated erythrocyte mean corpuscular hemoglobin concentration measurement ( mass/volume) 33 g/dL 32-36 Automated erythrocyte distribution width ratio 14.4 % 10.0-14.5 Automated blood platelet count (count/volume) 248 10*3/uL 130-400 Automated blood platelet mean volume measurement 8.9 [foz_us] 7.4-10.4 Automated blood neutrophils/100 leukocytes 85 % 42-75 Automated blood lymphocytes/100 leukocytes 8 % 12-44 Blood monocytes/100 leukocytes 7 % 0-12 Automated blood eosinophils/100 leukocytes 0 % 0-10 Automated blood basophils/100 leukocytes 0 % 0-10 Blood neutrophils automated count (number/volume) 10.0 10*3 1.8-7.8 Blood lymphocytes automated count (number/volume) 0.9 10*3 1.0-4.0 Blood monocytes automated count (number/volume) 0.8 10*3 0.0-1.0 Automated eosinophil count 0.0 10*3/uL 0.0-0.3 Automated blood basophil count (count/volume) 0.0 10*3/uL 0.0-0.1 Comprehensive metabolic panel - 08/15/18 05:25 Serum or plasma sodium measurement (moles/volume) 138 mmol/L 135-145 Serum or plasma potassium measurement (moles/volume) 4.0 mmol/L 3.6-5.0 Serum or plasma chloride measurement (moles/volume) 104 mmol/L 98-107 Carbon dioxide 25 mmol/L 21-32 Serum or plasma anion gap determination (moles/volume) 9 mmol/L 5-14 Serum or plasma urea nitrogen measurement (mass/volume) 21 mg/dL 7-18 Serum or plasma creatinine measurement (mass/volume) 0.74 mg/dL 0.60-1.30 Serum or plasma urea nitrogen/creatinine mass ratio 28 NRG Serum or plasma creatinine measurement with calculation of estimated glomerular filtration rate > NRG Serum or plasma glucose measurement (mass/volume) 107 mg/dL 70-105 Serum or plasma calcium measurement (mass/volume) 9.3 mg/dL 8.5-10.1 Serum or plasma total bilirubin measurement (mass/volume) 0.5 mg/dL 0.1-1.0 Serum or plasma alkaline phosphatase measurement (enzymatic activity/volume) 52 U/L 40-136 Serum or plasma aspartate aminotransferase measurement (enzymatic activity/ volume) 19 U/L 5-34 Serum or plasma alanine aminotransferase measurement (enzymatic activity/volume ) 25 U/L 0-55 Serum or plasma protein measurement (mass/volume) 5.5 g/dL 6.4-8.2 Serum or plasma albumin measurement (mass/volume) 2.9 g/dL 3.2-4.5 CALCIUM CORRECTED 10.2 mg/dL 8.5-10.1 Capillary blood glucose measurement by glucometer (mass/volume) - 08/15/18 11: 00 Capillary blood glucose measurement by glucometer (mass/volume) 163 mg/dL 70-110 Automated blood complete blood count (hemogram) panel - 08/16/18 07:57 Blood leukocytes automated count (number/volume) 10.4 10*3/uL 4.3-11.0 Blood erythrocytes automated count (number/volume) 3.77 10*6/uL 4.35-5.85 Venous blood hemoglobin measurement (mass/volume) 10.7 g/dL 13.3-17.7 Blood hematocrit (volume fraction) 33 % 40-54 Automated erythrocyte mean corpuscular volume 88 [foz_us] 80-99 Automated erythrocyte mean corpuscular hemoglobin (mass per erythrocyte) 28 pg 25-34 Automated erythrocyte mean corpuscular hemoglobin concentration measurement ( mass/volume) 32 g/dL 32-36 Automated erythrocyte distribution width ratio 14.2 % 10.0-14.5 Automated blood platelet count (count/volume) 223 10*3/uL 130-400 Automated blood platelet mean volume measurement 9.0 [foz_us] 7.4-10.4 Comprehensive metabolic panel - 08/16/18 07:57 Serum or plasma sodium measurement (moles/volume) 139 mmol/L 135-145 Serum or plasma potassium measurement (moles/volume) 3.6 mmol/L 3.6-5.0 Serum or plasma chloride measurement (moles/volume) 105 mmol/L 98-107 Carbon dioxide 26 mmol/L 21-32 Serum or plasma anion gap determination (moles/volume) 8 mmol/L 5-14 Serum or plasma urea nitrogen measurement (mass/volume) 16 mg/dL 7-18 Serum or plasma creatinine measurement (mass/volume) 0.69 mg/dL 0.60-1.30 Serum or plasma urea nitrogen/creatinine mass ratio 23 NRG Serum or plasma creatinine measurement with calculation of estimated glomerular filtration rate > NRG Serum or plasma glucose measurement (mass/volume) 92 mg/dL 70-105 Serum or plasma calcium measurement (mass/volume) 9.2 mg/dL 8.5-10.1 Serum or plasma total bilirubin measurement (mass/volume) 0.5 mg/dL 0.1-1.0 Serum or plasma alkaline phosphatase measurement (enzymatic activity/volume) 48 U/L 40-136 Serum or plasma aspartate aminotransferase measurement (enzymatic activity/ volume) 14 U/L 5-34 Serum or plasma alanine aminotransferase measurement (enzymatic activity/volume ) 18 U/L 0-55 Serum or plasma protein measurement (mass/volume) 5.3 g/dL 6.4-8.2 Serum or plasma albumin measurement (mass/volume) 2.8 g/dL 3.2-4.5 CALCIUM CORRECTED 10.2 mg/dL 8.5-10.1 Complete blood count (CBC) with automated white blood cell (WBC) differential - 08/18/18 05:10 Blood leukocytes automated count (number/volume) 10.2 10*3/uL 4.3-11.0 Blood erythrocytes automated count (number/volume) 3.65 10*6/uL 4.35-5.85 Venous blood hemoglobin measurement (mass/volume) 10.6 g/dL 13.3-17.7 Blood hematocrit (volume fraction) 32 % 40-54 Automated erythrocyte mean corpuscular volume 87 [foz_us] 80-99 Automated erythrocyte mean corpuscular hemoglobin (mass per erythrocyte) 29 pg 25-34 Automated erythrocyte mean corpuscular hemoglobin concentration measurement ( mass/volume) 33 g/dL 32-36 Automated erythrocyte distribution width ratio 14.3 % 10.0-14.5 Automated blood platelet count (count/volume) 244 10*3/uL 130-400 Automated blood platelet mean volume measurement 8.9 [foz_us] 7.4-10.4 Automated blood neutrophils/100 leukocytes 76 % 42-75 Automated blood lymphocytes/100 leukocytes 14 % 12-44 Blood monocytes/100 leukocytes 9 % 0-12 Automated blood eosinophils/100 leukocytes 1 % 0-10 Automated blood basophils/100 leukocytes 0 % 0-10 Blood neutrophils automated count (number/volume) 7.7 10*3 1.8-7.8 Blood lymphocytes automated count (number/volume) 1.4 10*3 1.0-4.0 Blood monocytes automated count (number/volume) 0.9 10*3 0.0-1.0 Automated eosinophil count 0.1 10*3/uL 0.0-0.3 Automated blood basophil count (count/volume) 0.0 10*3/uL 0.0-0.1 Comprehensive metabolic panel - 08/18/18 05:10 Serum or plasma sodium measurement (moles/volume) 139 mmol/L 135-145 Serum or plasma potassium measurement (moles/volume) 3.5 mmol/L 3.6-5.0 Serum or plasma chloride measurement (moles/volume) 106 mmol/L 98-107 Carbon dioxide 25 mmol/L 21-32 Serum or plasma anion gap determination (moles/volume) 8 mmol/L 5-14 Serum or plasma urea nitrogen measurement (mass/volume) 17 mg/dL 7-18 Serum or plasma creatinine measurement (mass/volume) 0.64 mg/dL 0.60-1.30 Serum or plasma urea nitrogen/creatinine mass ratio 27 NRG Serum or plasma creatinine measurement with calculation of estimated glomerular filtration rate > NRG Serum or plasma glucose measurement (mass/volume) 113 mg/dL 70-105 Serum or plasma calcium measurement (mass/volume) 9.3 mg/dL 8.5-10.1 Serum or plasma total bilirubin measurement (mass/volume) 0.4 mg/dL 0.1-1.0 Serum or plasma alkaline phosphatase measurement (enzymatic activity/volume) 48 U/L 40-136 Serum or plasma aspartate aminotransferase measurement (enzymatic activity/ volume) 15 U/L 5-34 Serum or plasma alanine aminotransferase measurement (enzymatic activity/volume ) 17 U/L 0-55 Serum or plasma protein measurement (mass/volume) 5.3 g/dL 6.4-8.2 Serum or plasma albumin measurement (mass/volume) 2.8 g/dL 3.2-4.5 CALCIUM CORRECTED 10.3 mg/dL 8.5-10.1 Bacteria identification in isolate by anaerobe culture - 08/19/18 11:52 FREE TEXT EXTERNAL BETA LACTAMASE POSITIVE NRG QUANTITY OF GROWTH Many NRG Bacteria identification in isolate by anaerobe culture [id number] NRG FREE TEXT EXTERNAL 2 PLUS MIXED ANAEROBIC NOE NRG Gram stain microscopy - 08/19/18 11:52 Gram stain microscopy Many Gram negative bacilli NRG Bacteria identification in wound by culture - 08/19/18 11:52 Bacteria identification in wound by culture [id number] NRG FREE TEXT EXTERNAL NO SUSCEPTIBILITY PERFORMED NRG QUANTITY OF GROWTH Many NRG FREE TEXT ENTRY 2 RML REPORTED ID'S 08/22/18 12:05 NRG RML Sensitivity Panel - 08/19/18 11:52 Gentamicin susceptibility test by minimum inhibitory concentration < = NRG Trimethoprim/sulfamethoxazole susceptibility test by minimum inhibitoryconcentration S NRG Levofloxacin susceptibility test by minimum inhibitory concentration <= NRG Ampicillin susceptibility test by minimum inhibitory concentration > NRG Cefazolin susceptibility test by minimum inhibitory concentration > NRG Ceftriaxone susceptibility test by minimum inhibitory concentration <= NRG Piperacillin/tazobactam susceptibility test by minimum inhibitory concentration = NRG Ciprofloxacin susceptibility test by minimum inhibitory concentration <= NRG Meropenem susceptibility test by minimum inhibitory concentration < = NRG Amoxicillin and clavulanate potassium susc TOMASA > NRG Imipenem susceptibility test by minimum inhibitory concentration <= NRG AFB CULT T STAIN TISSUE/FLUID - 08/19/18 11:52 RML Sensitivity Panel - 08/19/18 11:52 Gentamicin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
--- NOTE | 2018-10-09 15:48 | OPERATIVE REPORT ---
DATE OF SERVICE: 10/09/2018 ATTENDING PRIMARY CARE PHYSICIAN: Low Harrington DO. PREOPERATIVE DIAGNOSIS: Diverticulitis x2, requiring a hospital admission and IV antibiotics. POSTOPERATIVE DIAGNOSES: Severe sigmoid diverticulosis, mild-moderate descending colonic diverticulosis, no mucosal inflammatory change to indicate any active diverticulitis, no neoplasms identified. PROCEDURE PERFORMED: Colonoscopy. SURGEON: Lydia Guidry MD. ANESTHESIA: Conscious sedation. ESTIMATED BLOOD LOSS: Minimal. FINDINGS: Mild chronic stage II external and internal hemorrhoids, severe sigmoid diverticulosis with mild to moderate descending colonic diverticulosis, no mucosal inflammatory changes to indicate any active diverticulitis. There were no neoplasms identified and the remainder of the colon was normal. DISPOSITION: The patient tolerated the procedure well. INDICATIONS: The patient is a 78-year-old male who presented to the Emergency Department with a 2-day history of left lower abdominal quadrant pain. A CT scan was performed, which did show significant sigmoid diverticulitis as well as very small contained bubbles of air which may have included a contained microperforation. He was admitted and treated conservatively with bowel rest and IV antibiotics and did improve. After further questioning, he reported that he did have a colonoscopy before in the past; however, this was a significant time frame. He did well and was discharged home; however, did return due to recurrent pain in the left lower abdominal quadrant. Again, he was treated conservatively and an abscess was identified and Interventional Radiology was consulted for drain placement. He again did well and was sent home and the drain was removed. Due to his episodes of complicated diverticulitis as well as absence from colonoscopy, we will proceed with colonoscopy to rule out malignancy and then if there is no contraindication, then proceed with sigmoid colonic resection and anastomosis in one stage. DESCRIPTION OF PROCEDURE: The patient was brought to the endoscopy suite, laid in left lateral decubitus position. After adequate IV pain and sedative medications and conscious sedation anesthesia, a digital rectal examination was performed. Mild chronic stage II external and internal hemorrhoids were identified, which were not actively edematous nor inflamed and no bleeding. The prostate gland was surgically absent. The endoscope was then intubated into the anus and the rectum insufflated. The endoscope was then advanced thru the valves of Jones of the rectum with no polyps or neoplasms identified. The endoscope was then advanced to the sigmoid colon where there was a severe sigmoid diverticulosis as well as a mild to moderate descending colonic diverticulosis. There were no mucosal inflammatory changes to indicate any active diverticulitis. There were also no neoplasms identified. The remainder of the colon was normal. The remainder of the colon was normal. The endoscope was then slowly withdrawn while taking a second look and suctioning residual air with no additional findings. The patient tolerated the procedure well. We will proceed with medical clearance and then proceed with scheduling him for a laparoscopic sigmoid colon resection with anastomosis due to the severity of his diverticulosis as well as the complications associated with his episodes of diverticulitis occurring twice. Job ID: [id number] DocumentID: [id number] Dictated Date: 10/09/2018 11:50:02 Cigar Wrapper Tender Automatic Date: 10/09/2018 15:47:47 Dictated By: LYDIA GUIDRY MD MTDD
== END 2018-10-09 12:40 | disposition home or self-care (01) ==
LOC: ENDO 09:53
PROVIDERS: ATTEND Surgery
DX: K57.30 Diverticulosis of large intestine without perforation or abscess without bleeding (principal); K64.1 Second degree hemorrhoids; I48.91 Unspecified atrial fibrillation; J45.909 Unspecified asthma, uncomplicated; G47.30 Sleep apnea, unspecified; L94.8 Other specified localized connective tissue disorders; Z85.46 Personal history of malignant neoplasm of prostate; Z87.442 Personal history of urinary calculi

== ENCOUNTER 2018-10-14 10:01 | Outpatient (CLI) | payer MEDICARE ==
[~2018-10-14] VITALS: Ht 190.5 cm; Wt 98.4 kg
[2018-10-14 10:17] VITALS: BP 127/62
[2018-10-14 10:45] LABS: BASOPHILS % (AUTO) 1 % (0-10); EOSINOPHILS # (AUTO) 0.4 10^3/uL (0.0-0.3); EOSINOPHILS % (AUTO) 7 % (0-10); HEMATOCRIT 38 % (40-54); HEMOGLOBIN 12.4 G/DL (13.3-17.7); LYMPHOCYTES # (AUTO) 1.9 X 10^3 (1.0-4.0); LYMPHOCYTES % (AUTO) 33 % (12-44); MEAN CORPUSCULAR HEMOGLOBIN 28 PG (25-34); MEAN CORPUSCULAR HGB CONC 32 G/DL (32-36); MEAN CORPUSCULAR VOLUME 88 FL (80-99); MEAN PLATELET VOLUME 9.3 FL (7.4-10.4); MONOCYTES # (AUTO) 0.5 X 10^3 (0.0-1.0); MONOCYTES % (AUTO) 9 % (0-12); NEUTROPHILS # (AUTO) 2.8 X 10^3 (1.8-7.8); NEUTROPHILS % (AUTO) 50 % (42-75); PLATELET COUNT 174 10^3/uL (130-400); RED BLOOD COUNT 4.39 10^6/uL (4.35-5.85); RED CELL DISTRIBUTION WIDTH 15.5 % (10.0-14.5); WHITE BLOOD COUNT 5.7 10^3/uL (4.3-11.0)
[2018-10-14 11:02] LABS: BUN/CREATININE RATIO 35; CALCIUM 9.9 MG/DL (8.5-10.1); CARBON DIOXIDE 26 MMOL/L (21-32); CHLORIDE 109 MMOL/L (98-107); CREATININE SERUM 0.72 MG/DL (0.60-1.30); GFR ESTIMATED > 60; GLUCOSE 113 MG/DL (70-105); POTASSIUM 3.3 MMOL/L (3.6-5.0); SODIUM 141 MMOL/L (135-145)
== END 2018-10-14 10:45 | disposition home or self-care (01) ==
LOC: PREOP 10:01
PROVIDERS: ATTEND Surgery
DX: Z01.812 Encounter for preprocedural laboratory examination (principal); K57.92 Diverticulitis of intestine, part unspecified, without perforation or abscess without bleeding
CPT/HCPCS: 36415; 80048; 85025; 87081

== ENCOUNTER 2018-10-17 08:00 | Inpatient (IN) | payer MEDICARE ==
[~2018-10-17] VITALS: Ht 190.5 cm; Wt 95.3 kg
[2018-10-17] VITALS (11 sets, daily range): BP systolic 104–157; BP diastolic 67–92
--- OUTSIDE RECORDS SUMMARY | 2018-10-17 10:28 | XMS REPORT | Clinical Summary ---
Author Author [facility] Organization [facility] Address Unknown Phone Unavailable Care Team Providers Care Garageman Name Role Phone PCP Unavailable Allergies Not [...]
--- OUTSIDE RECORDS SUMMARY | 2018-10-17 10:28 | XMS REPORT | Clinical Summary ---
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 If you do not see the information that you expected, contact Release of Information in the Health Information Management department at [phone] for further assistance in locating additional records.[facility] Allergies No Known Allergies Medications End Date [...] (LEVSIN/SL) 1 Tab Every 4 30 1 1024/200 0.125 mg tablet Hours as 9 needed. [...]
--- OUTSIDE RECORDS SUMMARY | 2018-10-17 10:31 | XMS REPORT | CCD ---
Author Author [facility] Organization [facility] Address [address] [place] [address] Phone Care Team Providers Care Sheet Metal [employer] Supervisor Name Role Phone PP Unavailable CCM Unavailable Summary Purpose Interface Exchange Insurance Providers Payer name Policy type / Coverage type Covered green party ID Effective Begin Date Effective End Date WPS Medicare Part B Medicare Part B [id number] 2015 Unknown AARP Medicare Part B [id number] 2015 Unknown Family history Mother Diagnosis Age At Onset Dementia Unknown Father Diagnosis Age At Onset lung cancer Unknown Social History Social History Element Codes Description Effective Dates Marital status Unknown Michelle 03/24/2015 Number of children Unknown 3 03/24/2015 Employment Unknown Retired 03/24/[address]: 213189879 Never smoker 03/24/[address]: 819195124 Never drinks alcohol 03/24/2015 Allergies, Adverse Reactions, [...] hydrocodone 10 mg-acetaminophen 325 mg tablet RxNorm: 418211 1-2 Tablet(s) PO Q6 as needed for pain 10/15/2018 10/29/2018 Active hydrocodone 10 mg-acetaminophen 325 mg tablet RxNorm: 121626 1-2 Tablet(s) PO Q6 as needed for pain 09/19/2018 10/03/2018 Inactive prednisone 10 mg tablet RxNorm: 680793 Tablet(s) TAKE 1 TABLET BY MOUTH DAILY 09/18/2018 12/11/2019 Active - Ref: [id number] Zofran ODT 4 mg disintegrating tablet RxNorm: 750792 DISSOLVE 1 TABLET IN MOUTH THREE TIMES DAILY 08/30/2018 No Stop Date Active Bactrim DS 800 mg-160 mg tablet RxNorm: 151682 1 Tablet(s) PO BID 08/26/2018 09/04/2018 Inactive Bactrim DS 800 mg-160 mg tablet RxNorm: 188240 1 Tablet(s) PO BID 08/26/2018 08/25/2018 Inactive gabapentin 100 mg capsule RxNorm: 786821 1 Capsule(s) PO TID , if not having improvement in sam after 5 day, may increase up to two pills three times daily 08/22/2018 11/19/2018 Active morphine ER 15 mg tablet,extended release RxNorm: 667906 1 Tablet(s) PO BID 08/22/2018 09/20/2018 Inactive Zofran ODT 4 mg disintegrating tablet RxNorm: 004161 1 Tablet(s) PO TID 07/25/2018 07/29/2018 Inactive prednisone 20 mg tablet RxNorm: 192111 Tablet(s) PO 07/25/2018 08/21/2018 Inactive 60 ,60,40,40,20,20 morphine ER 15 mg tablet,extended release RxNorm: 004547 1 Tablet(s) PO BID 07/22/2018 08/20/2018 Inactive gabapentin 100 mg capsule RxNorm: 508435 1 Capsule(s) PO TID , if not having improvement in sam after 5 day, may increase up to two pills three times daily 07/22/2018 08/20/2018 Inactive ProAir HFA 90 mcg/actuation aerosol inhaler RxNorm: 413914 USE 1 TO 2 PUFFS EVERY 4 TO 6 HOURS NEEDED 07/02/20182018 Inactive 3 * 8.5 GM=25.5 GM Total - Ref: [id number] hydrocodone 10 mg-acetaminophen 325 mg tablet RxNorm: 573963 1-2 Tablet(s) PO Q6 as needed for pain 06/20/2018 07/04/2018 Inactive hydrocodone 10 mg-acetaminophen 325 mg tablet RxNorm: 428648 1-2 Tablet(s) PO Q6 as needed for pain 05/20/2018 06/03/2018 Inactive hydrocodone 10 mg-acetaminophen 325 mg tablet RxNorm: 419754 1-2 Tablet(s) PO Q6 as needed for pain 04/17/2018 05/01/2018 Inactive Kenalog 40 mg/mL suspension for injection RxNorm: 1226971 1.5 Milliliter(s) Inj 03/18/2018 03/18/2018 Inactive hydrocodone 10 mg-acetaminophen 325 mg tablet RxNorm: 833484 1-2 Tablet(s) PO Q6 as needed for pain 03/18/2018 04/01/2018 Inactive prednisone 20 mg tablet RxNorm: 866328 1 Tablet(s) PO daily 03/22/2018 Inactive prednisone 10 mg tablet RxNorm: 754707 TAKE 1 TABLET BY MOUTH DAILY 03/11/2018 09/17/2018 Inactive - Ref: [id number] Kenalog 40 mg/mL suspension for injection RxNorm: 2580588 1 Milliliter(s) Inj 02/21/2018 02/21/2018 Inactive hydrocodone 10 mg-acetaminophen 325 mg tablet RxNorm: 137862 1-2 Tablet(s) PO Q6 as needed for pain 02/20/2018 03/06/2018 Inactive hydrocodone 10 mg-acetaminophen 325 mg tablet RxNorm: 204272 1-2 Tablet(s) PO Q6 as needed for pain 01/23/2018 02/06/2018 Inactive hydrocodone 10 mg-acetaminophen 325 mg tablet RxNorm: 279196 1-2 Tablet(s) PO Q6 as needed for pain 12/25/2017 01/08/2018 Inactive doxycycline hyclate 100 mg capsule RxNorm: 5400991 1 Capsule(s) PO BID 11/29/2017 12/08/2017 Inactive doxycycline hyclate 100 mg capsule RxNorm: 4707447 1 Capsule(s) PO BID 11/29/2017 11/28/2017 Inactive hydrocodone 10 mg-acetaminophen 325 mg tablet RxNorm: 239522 1-2 Tablet(s) PO Q6 as needed for pain 11/01/2017 11/15/2017 Inactive hydrocodone 10 mg-acetaminophen 325 mg tablet RxNorm: 316617 1-2 Tablet(s) PO Q6 as needed for pain 10/03/2017 10/17/2017 Inactive ProAir HFA 90 mcg/actuation aerosol inhaler RxNorm: 922756 USE 1 TO 2 PUFFS EVERY 4 TO 6 HOURS NEEDED 09/28/20172017 Inactive 3 * 8.5 GM=25.5 GM Total - Ref: [id number] hydrocodone 10 mg-acetaminophen 325 mg tablet RxNorm: 350807 1-2 Tablet(s) PO Q6 as needed for pain 08/30/2017 09/13/2017 Inactive Benicar 20 mg tablet RxNorm: 580031 Tablet(s) TAKE 1 TABLET BY MOUTH DAILY 08/20/2017 08/14/2018 Inactive Benicar 20 mg tablet RxNorm: 745548 TAKE 1 TABLET BY MOUTH DAILY 08/15/2017 08/19/2017 Inactive - Ref: [id number] azithromycin 250 mg tablet RxNorm: 412797 1 Tablet(s) PO UD two tabs on day #1, the one tab daily x 4 doses 08/07/2017 Inactive hydrocodone 10 mg-acetaminophen 325 mg tablet RxNorm: 989686 1-2 Tablet(s) PO Q6 as needed for pain 07/31/2017 08/14/2017 Inactive prednisone 10 mg tablet RxNorm: 747658 TAKE 1 TABLET BY MOUTH DAILY 07/30/2017 01/25/2018 Inactive - Ref: [id number] hydrocodone 10 mg-acetaminophen 325 mg tablet RxNorm: 482389 1-2 Tablet(s) PO Q6 as needed for pain 06/29/2017 07/13/2017 Inactive ProAir HFA 90 mcg/actuation aerosol inhaler RxNorm: 750588 INHALE ONE TO TWO PUFFS BY MOUTH EVERY 4 TO 6 HOURS NEEDED 06/04/2017 07/21/2017 Inactive hydrocodone 10 mg-acetaminophen 325 mg tablet RxNorm: 708960 1-2 1 Tablet(s) PO Q6 as needed for pain 05/22/20172016 Inactive hydrocodone 10 mg-acetaminophen 325 mg tablet RxNorm: 865294 1-2 1 Tablet(s) PO Q6 as needed for pain 04/30/20172016 Inactive hydrocodone 10 mg-acetaminophen 325 mg tablet RxNorm: 266107 1-2 Tablet(s) PO Q6 as needed for pain 03/30/2017 04/13/2017 Inactive Benicar 20 mg tablet RxNorm: 087488 Take 1 tablet by mouth daily 03/22/2017 08/14/2017 Inactive - First Attempt Ref: [id number] hydrocodone 10 mg-acetaminophen 325 mg tablet RxNorm: 868193 1-2 Tablet(s) PO Q6 as needed for pain 03/01/2017 03/15/2017 Inactive Advair Diskus 250 mcg-50 mcg/dose powder for inhalation RxNorm: 5051543 1 INH daily 02/09/2017 02/03/2018 Inactive prednisone 10 mg tablet RxNorm: 654471 Take 1 tablet by mouth daily 02/01/2017 07/29/2017 Inactive - Ref: [id number] hydrocodone 10 mg-acetaminophen 325 mg tablet RxNorm: 893958 1-2 Tablet(s) PO Q6 as needed for pain 02/01/2017 02/15/2017 Inactive hydrocodone 10 mg-acetaminophen 325 mg tablet RxNorm: 436517 1-2 Tablet(s) PO Q6 as needed for pain 01/03/2017 01/17/2017 Inactive hydrocodone 10 mg-acetaminophen 325 mg tablet RxNorm: 186346 1-2 Tablet(s) PO Q6 as needed for pain 12/11/2016 12/25/2016 Inactive prednisone 10 mg tablet RxNorm: 865208 1 Tablet(s) 1 Tablet(s) PO daily 11/10/2016 01/31/2017 Inactive Zofran 4 mg tablet RxNorm: 570348 1 Tablet(s) PO TID 201611/14/2016 Inactive hydrocodone 10 mg-acetaminophen 325 mg tablet RxNorm: 116048 1-2 Tablet(s) PO Q6 as needed for pain 10/31/2016 11/14/2016 Inactive prednisone 10 mg tablet RxNorm: 784949 Take 1 tablet by mouth daily 10/23/2016 03/17/2018 Inactive - Ref: [id number] Advair Diskus 250 mcg-50 mcg/dose powder for inhalation RxNorm: 0073690 1 INH daily 10/13/2016 01/10/2017 Inactive Kenalog 40 mg/mL suspension for injection RxNorm: 7083075 Milliliter(s) Inj 09/14/2016 09/14/2016 Inactive hydrocodone 10 mg-acetaminophen 325 mg tablet RxNorm: 367944 1-2 Tablet(s) PO Q6 as needed for pain 09/11/2016 09/25/2016 Inactive Benicar 20 mg tablet RxNorm: 797784 Take 1 tablet by mouth daily 09/04/2016 03/02/2017 Inactive - First Attempt Ref: [id number] prednisone 10 mg tablet RxNorm: 358103 1 Tablet(s) 1 Tablet(s) PO daily 08/28/2016 10/22/2016 Inactive Vitamin D2 50,000 unit capsule RxNorm: 162797 1 Capsule(s) PO QW 07/28/2016 05/20/2017 Inactive Kenalog 40 mg/mL suspension for injection RxNorm: 7713034 1.5 Milliliter(s) Inj 07/24/2016 07/24/2016 Inactive hydrocodone 10 mg-acetaminophen 325 mg tablet RxNorm: 514726 1-2 Tablet(s) PO Q6 as needed 07/24/2016 09/10/2016 Inactive hydrocodone 10 mg-acetaminophen 325 mg tablet RxNorm: 746691 1-2 Tablet(s) PO Q6 as needed 06/21/2016 07/05/2016 Inactive ProAir HFA 90 mcg/actuation aerosol inhaler RxNorm: 995596 INHALE ONE TO TWO PUFFS BY MOUTH EVERY 4 TO 6 HOURS NEEDED 06/14/2016 07/17/2016 Inactive prednisone 10 mg tablet RxNorm: 304897 Tablet(s) 1 Tablet(s) PO daily 06/14/2016 08/27/2016 Inactive prednisone 10 mg tablet RxNorm: 807265 1 Tablet(s) PO daily 06/13/2016 Inactive ProAir HFA 90 mcg/actuation aerosol inhaler RxNorm: 938302 INHALE ONE TO TWO PUFFS BY MOUTH EVERY 4 TO 6 HOURS NEEDED 06/13/2016 06/13/2016 Inactive hydrocodone 10 mg-acetaminophen 325 mg tablet RxNorm: 709245 1-2 Tablet(s) PO Q6 as needed 05/15/2016 05/29/2016 Inactive hydrocodone 10 mg-acetaminophen 325 mg tablet RxNorm: 660855 1-2 Tablet(s) PO Q6 as needed 04/17/2016 05/01/2016 Inactive Benicar 20 mg tablet RxNorm: 410700 TAKE ONE TABLET BY MOUTH ONCE DAILY 04/13/2016 09/03/2016 Inactive prednisone 10 mg tablet RxNorm: 388062 1 Tablet(s) PO daily 06/12/2016 Inactive hydrocodone 10 mg-acetaminophen 325 mg tablet RxNorm: 728154 1-2 Tablet(s) PO Q6 as needed 03/07/2016 05/14/2016 Inactive hydrocodone 10 mg-acetaminophen 325 mg tablet RxNorm: 170197 1-2 Tablet(s) PO Q6 as needed 03/07/2016 04/16/2016 Inactive Kenalog 40 mg/mL suspension for injection RxNorm: 9446518 Milliliter(s) Inj 01/24/2016 01/24/2016 Inactive hydrocodone 10 mg-acetaminophen 325 mg tablet RxNorm: 916801 1-2 Tablet(s) PO Q6 as needed 01/19/2016 03/06/2016 Inactive hydrocodone 10 mg-acetaminophen 325 mg tablet RxNorm: 715565 1-2 Tablet(s) PO Q6 as needed 11/30/2015 01/18/2016 Inactive hydrocodone 10 mg-acetaminophen 325 mg tablet RxNorm: 982391 1-2 Tablet(s) PO Q6 as needed 09/22/2015 11/29/2015 Inactive prednisone 10 mg tablet RxNorm: 236844 1 Tablet(s) PO daily 11/10/2015 Inactive Vitamin D2 50,000 unit capsule RxNorm: 011055 1 Capsule(s) PO QW 07/28/2015 07/27/2016 Inactive vitamin d 2000 QD Advair Diskus 250 mcg-50 mcg/dose powder for inhalation RxNorm: 4553522 1 INH daily 07/26/2015 08/24/2015 Inactive ProAir HFA 90 mcg/actuation aerosol inhaler RxNorm: 523398 1-2 Puff(s) INH Q4-6H as needed 07/26/2015 11/22/2015 Inactive Kenalog 40 mg/mL suspension for injection RxNorm: 6449932 1 Milliliter(s) Inj daily 07/26/2015 07/26/2015 Inactive hydrocodone 10 mg-acetaminophen 325 mg tablet RxNorm: 023053 1-2 Tablet(s) PO Q6 as needed 07/15/2015 09/21/2015 Inactive prednisone 10 mg tablet RxNorm: 031584 1 Tablet(s) PO daily 11/201408/12/2015 Inactive hydrocodone 10 mg-acetaminophen 325 mg tablet RxNorm: 953417 1-2 Tablet(s) PO Q6 as needed 05/10/2015 07/14/2015 Inactive Benicar 20 mg tablet RxNorm: 752873 1 Tablet(s) PO daily 201403/30/2016 Inactive Vitamin D2 50,000 unit capsule RxNorm: 591405 1 Capsule(s) PO QW 03/25/2015 07/27/2015 Inactive vitamin d 2000 QD fluorouracil 5 % topical cream RxNorm: 242806 1 TOP daily 03/2404/22/2015 Inactive fluorouracil 5 % topical cream RxNorm: 212753 1 TOP daily 03/2403/23/2015 Inactive Efudex 5 % topical cream RxNorm: 867368 1 Application TOP BID to affected skin x 10 days. Let heal and may reapply 03/24/2015 04/22/2015 Inactive ProAir HFA 90 mcg/actuation aerosol inhaler RxNorm: 0652728 1-2 Puff(s) INH Q4-6H as needed 02/18/2015 02/17/2015 Inactive ProAir HFA 90 mcg/actuation aerosol inhaler RxNorm: 1990857 1-2 Puff(s) INH Q4-6H as needed 02/18/2015 06/17/2015 Inactive Vitamin D3 2,000 unit tablet RxNorm: 232125 1 Tablet(s) PO daily No Start Date 05/20/2017 Inactive Benicar 20 mg tablet RxNorm: 034395 1 Tablet(s) PO daily No Start Date 04/05/2015 Inactive Advair Diskus 250 mcg-50 mcg/dose powder for inhalation RxNorm: 6832921 1 INH daily No Start Date 07/25/2015 Inactive Vitamin D2 50,000 unit capsule RxNorm: 185371 1 Capsule(s) PO QW No Start Date 03/24/2015 Inactive vitamin d 2000 QD prednisone 10 mg tablet RxNorm: 371657 1 Tablet(s) PO daily No Start Date 05/26/2015 Inactive azithromycin 250 mg tablet RxNorm: 230241 1 Tablet(s) PO UD two tabs on day #1, the one tab daily x 4 doses No Start Date 08/06/2017 Inactive hydrocodone 10 mg-acetaminophen 325 mg tablet RxNorm: 380256 1-2 Tablet(s) PO Q6 as needed No Start Date 05/09/2015 Inactive Medication Administered Medication Codes Instructions Start Date Status Kenalog 40 mg/mL suspension for injection RxNorm: 3334473 1.5Milliliter 03/18/2018 No longer Active Kenalog 40 mg/mL suspension for injection RxNorm: 4916836 1Milliliter 02/21/2018 No longer Active Kenalog 40 mg/mL suspension for injection RxNorm: 9682851 Milliliter 09/14/2016 No longer Active Kenalog 40 mg/mL suspension for injection RxNorm: 2391549 1.5Milliliter 07/24/2016 No longer Active Kenalog 40 mg/mL suspension for injection RxNorm: 6751661 Milliliter 01/24/2016 No longer Active Kenalog 40 mg/mL suspension for injection RxNorm: 3774530 1Milliliterdaily 07/26/2015 No longer Active Immunizations Vaccine [...] findings ICD-10: Z00.01 ICD-9: V70.0 08/05/2018 Other malaise ICD-10: R53.81 ICD-9: 780.79 07/25/2018 Pain in left wrist ICD-10: M25.532 ICD-9: 719.43 07/25/2018 Other fatigue ICD-10: R53.83 ICD-9: 780.79 07/25/2018 Chronic pain syndrome ICD-10: G89.4 ICD-9: 338.4 07/22/2018 Low back pain ICD-10: M54.5 ICD-9: 724.2 07/22/2018 Essential (primary) hypertension ICD-10: I10 ICD-9: 401.1 07/22/2018 Sacroiliitis, not elsewhere classified ICD-10: M46.1 ICD-9: 720.2 03/18/2018 Spinal instabilities, sacral and sacrococcygeal region ICD- 10: M53.2X8 ICD-9: 724.6 03/18/2018 Allergic rhinitis, unspecified ICD-10: J30.9 ICD-9: 477.9 02/21/2018 Pain in right knee ICD-10: M25.561 ICD-9: 719.46 11/27/2017 Vitamin D deficiency, unspecified ICD-10: E55.9 ICD-9: 268.9 11/19/2017 Essential (primary) hypertension ICD-10: I10 ICD-9: 401.9 11/19/2017 Olecranon bursitis, right elbow ICD-10: M70.21 [...] Code Item Item Code Result Date Carmen [id number] CARMEN (GAY) SCREEN NONE DETECTED 07/27/2018 Sed Rate Ord21 ESR 29 mm/hr 07/26/2018 Uric Acid Ord77 Uric A 5.2 mg/dL 07/25/2018 Comp Metabolic Pnn976 NA 137 mEq/L 07/25/2018 Comp Metabolic Pnq453 K 3.9 mEq/L 07/25/2018 Comp Metabolic Yhu846 CL 100 mEq/L 07/25/2018 Comp Metabolic Kvr607 CO2 28.0 mEq/L 07/25/2018 Comp Metabolic Drj549 ANION GAP 13 07/25/2018 Comp Metabolic Vxo041 GLUCOSE 93 mg/dL 07/25/2018 Comp Metabolic Hxv725 Creat 0.8 mg/dL 07/25/2018 Comp Metabolic Vgg980 eGFR 102 ml/min/1.73m2 07/25/2018 Comp Metabolic Txm395 BUN 26 mg/dL 07/25/2018 Comp Metabolic Vnx276 B/C Ratio 33.3 Ratio 07/25/2018 Comp Metabolic Fum562 CALCIUM 9.5 mg/dL 07/25/2018 Comp Metabolic Mfn772 ALK PHOS 47 U/L 07/25/2018 Comp Metabolic Aue347 AST(SGOT) 22 U/L 07/25/2018 Comp Metabolic Qln541 ALT(SGPT) 16 U/L 07/25/2018 Comp Metabolic Stv328 BILI T 0.6 mg/dL 07/25/2018 Comp Metabolic Gay355 ALBUMIN 3.8 g/dL 07/25/2018 Comp Metabolic Wof809 TPRO 5.9 g/dL 07/25/2018 Comp Metabolic Ftt958 GLOB 2.2 g/dL 07/25/2018 Comp Metabolic Qwp565 A/G Ratio 1.7 Ratio 07/25/2018 Comp Metabolic Unz474 Osmo 278 mOsmo 07/25/2018 Ra Factor Gaz689 RA FACTOR <10 IU/ml 07/25/2018 Cbc With Differential Ord2 WBC 10.44 K/ul 07/25/2018 Cbc With Differential Ord2 RBC 4.31 M/ul 07/25/2018 Cbc With Differential Ord2 HGB 12.8 g/dl 07/25/2018 Cbc With Differential Ord2 HCT 39.0 % 07/25/2018 Cbc With Differential Ord2 Neut% 70.5 % 07/25/2018 Cbc With Differential Ord2 Lymph% 14.6 % 07/25/2018 Cbc With Differential Ord2 MCV 90.5 fl 07/25/2018 Cbc With Differential Ord2 MCH 29.7 pg 07/25/2018 Cbc With Differential Ord2 [place]% 11.0 % 07/25/2018 Cbc With Differential Ord2 [...] 1.52 K/ul 07/25/2018 Cbc With Differential Ord2 [place] ABS# 1.2 K/ul 07/25/2018 Cbc With Differential Ord2 Eos ABS# 0.4 K/ul 07/25/2018 Cbc With Differential Ord2 Baso ABS# 0.0 K/ul 07/25/2018 C-Reactive Protein Qnt Crqnt CRP 5.8 mg/dl 07/25/2018 Tsh Ord6 TSH (3rd IS) 1.01 uIU/mL 11/19/2017 Cbc With Differential Ord2 WBC 7.64 K/ul 11/19/2017 Cbc With Differential Ord2 RBC 4.36 M/ul 11/19/2017 Cbc With Differential Ord2 HGB 12.8 g/dl 11/19/2017 Cbc With Differential Ord2 HCT 38.4 % 11/19/2017 Cbc With Differential Ord2 Neut% 55.6 % 11/19/2017 Cbc With Differential Ord2 MCV 88.1 fl 11/19/2017 Cbc With Differential Ord2 Lymph% 27.1 % 11/19/2017 Cbc With Differential Ord2 [place]% 13.9 % 11/19/2017 Cbc With Differential Ord2 MCH 29.4 pg 11/19/2017 Cbc With Differential Ord2 Eos% [...] 2.07 K/ul 11/19/2017 Cbc With Differential Ord2 [place] ABS# 1.1 K/ul 11/19/2017 Cbc With Differential Ord2 Eos ABS# 0.2 K/ul 11/19/2017 Cbc With Differential Ord2 Baso ABS# 0.1 K/ul 11/19/2017 Lipid Ord30 CHOL 182 mg/dL 11/19/2017 Lipid Ord30 HDL 50.0 mg/dl 11/19/2017 Lipid Ord30 TRIG 138 mg/dL 11/19/2017 Lipid Ord30 LDL 104 mg/dL 11/19/2017 Lipid Ord30 C/HDL 3.6 Ratio 11/19/2017 Comp Metabolic Zgb325 NA 140 mEq/L 11/19/2017 Comp Metabolic Ijy802 K 3.8 mEq/L 11/19/2017 Comp Metabolic Yox548 CL 105 mEq/L 11/19/2017 Comp Metabolic Ezw379 CO2 30.0 mEq/L 11/19/2017 Comp Metabolic Bey204 ANION GAP 9 11/19/2017 Comp Metabolic Gvi702 GLUCOSE 91 mg/dL 11/19/2017 Comp Metabolic Oso854 Creat 0.6 mg/dL 11/19/2017 Comp Metabolic Vdg613 eGFR 133 ml/min/1.73m2 11/19/2017 Comp Metabolic Hlb339 BUN 16 mg/dL 11/19/2017 Comp Metabolic Vad257 B/C Ratio 25.8 Ratio 11/19/2017 Comp Metabolic Zol574 CALCIUM 9.6 mg/dL 11/19/2017 Comp Metabolic Atp307 ALK PHOS 46 U/L 11/19/2017 Comp Metabolic Ses539 AST(SGOT) 17 U/L 11/19/2017 Comp Metabolic Amz482 ALT(SGPT) 13 U/L 11/19/2017 Comp Metabolic Trb865 BILI T 0.4 mg/dL 11/19/2017 Comp Metabolic Afc514 ALBUMIN 3.6 g/dL 11/19/2017 Comp Metabolic Rks861 TPRO 5.9 g/dL 11/19/2017 Comp Metabolic Aie206 GLOB 2.3 g/dL 11/19/2017 Comp Metabolic Kwg775 A/G Ratio 1.6 Ratio 11/19/2017 Comp Metabolic Kvm150 Osmo 280 mOsmo 11/19/2017 Uric Acid Ord77 Uric A 5.5 mg/dL 08/08/2017 Urine Culture Ucult Preliminary NO Growth Day 1 11/27/2016 Urine Culture Ucult Complete NO Growth Day 2 11/27/2016 Vitamin D 25 Oh Saf1884 VITAMIN D, 25 HYDROXY 28.69 ng/mL Total Psa Ord10 PSA 0.03 ng/mL 07/27/2016 Comp Metabolic Vag049 NA 138 mEq/L 07/27/2016 Comp Metabolic Mzn446 K 4.1 mEq/L 07/27/2016 Comp Metabolic Xng594 CL 106 mEq/L 07/27/2016 Comp Metabolic Gmz220 CO2 26.0 mEq/L 07/27/2016 Comp Metabolic Eaq604 ANION GAP 10 07/27/2016 Comp Metabolic Fwy797 GLUCOSE 102 mg/dL 07/27/2016 Comp Metabolic Fex580 Creat 0.7 mg/dL 07/27/2016 Comp Metabolic Zxo431 eGFR 125 ml/min/1.73m2 07/27/2016 Comp Metabolic Jlg669 BUN 24 mg/dL 07/27/2016 Comp Metabolic Hsm641 B/C Ratio 36.4 Ratio 07/27/2016 Comp Metabolic Iip472 CALCIUM 10.2 mg/dL 07/27/2016 Comp Metabolic Cgc584 ALK PHOS 41 U/L 07/27/2016 Comp Metabolic Ctu732 AST(SGOT) 17 U/L 07/27/2016 Comp Metabolic Aon714 ALT(SGPT) 14 U/L 07/27/2016 Comp Metabolic Vgb067 BILI T 0.5 mg/dL 07/27/2016 Comp Metabolic Als069 ALBUMIN 3.9 g/dL 07/27/2016 Comp Metabolic Rwf927 TPRO 6.3 g/dL 07/27/2016 Comp Metabolic Jym327 GLOB 2.4 g/dL 07/27/2016 Comp Metabolic Mye440 A/G Ratio 1.6 Ratio 07/27/2016 Comp Metabolic Rti357 Osmo 280 mOsmo 07/27/2016 Cbc With Differential [...] 21.4 % 07/27/2016 Cbc With Differential Ord2 [place]% 10.1 % 07/27/2016 Cbc With Differential Ord2 MCH 29.3 pg 07/27/2016 Cbc With Differential Ord2 MCHC 33.4 pg 07/27/2016 Cbc With Differential Ord2 Eos% 0.8 % 07/27/2016 Cbc With Differential Ord2 PLT 187 K/ul 07/27/2016 Cbc With Differential Ord2 Baso% 0.4 % 07/27/2016 Cbc With Differential Ord2 RDW 14.9 % 07/27/2016 Cbc With Differential Ord2 Neut ABS# 5.62 K/ul 07/27/2016 Cbc With Differential Ord2 Lymph ABS# 1.79 K/ul 07/27/2016 Cbc With Differential Ord2 [place] ABS# 0.8 K/ul 07/27/2016 Cbc With Differential Ord2 Eos ABS# 0.1 K/ul 07/27/2016 Cbc With Differential Ord2 Baso ABS# 0.0 K/ul 07/27/2016 Tsh Ord6 hTSH II 1.21 uIU/mL 07/27/2016 Lipid Ord30 CHOL 184 mg/dL 07/27/2016 Lipid Ord30 HDL 53.0 mg/dl 07/27/2016 Lipid Ord30 TRIG 106 mg/dL 07/27/2016 Lipid Ord30 LDL 110 mg/dL 07/27/2016 Lipid Ord30 C/HDL 3.5 Ratio 07/27/2016 Tsh Ord6 hTSH II 1.27 uIU/mL 07/26/2015 Vitamin D 25 Oh Ixz1350 VITAMIN D, 25 HYDROXY 31.47 ng/mL Total Psa Ord10 PSA 0.01 ng/mL 07/26/2015 Lipid Ord30 CHOL 187 mg/dL 07/26/2015 [...] With Differential Ord2 RDW 15.6 % 07/26/2015 Comp Metabolic Dki073 NA 137 mEq/L 07/26/2015 Comp Metabolic Mqf294 K 3.7 mEq/L 07/26/2015 Comp Metabolic Rdw802 CL 103 mEq/L 07/26/2015 Comp Metabolic Vzo056 CO2 26.0 mEq/L 07/26/2015 Comp Metabolic Xbw481 ANION GAP 12 07/26/2015 Comp Metabolic Hpe587 GLUCOSE 99 mg/dL 07/26/2015 Comp Metabolic Wlj222 Creat 0.8 mg/dL 07/26/2015 Comp Metabolic Ica048 eGFR 103 ml/min/1.73m2 07/26/2015 Comp Metabolic Ihs723 BUN 22 mg/dL 07/26/2015 Comp Metabolic Dmx497 B/C Ratio 28.2 Ratio 07/26/2015 Comp Metabolic Vuu323 CALCIUM 9.7 mg/dL 07/26/2015 Comp Metabolic Oin332 ALK PHOS 40 U/L 07/26/2015 Comp Metabolic Caj978 AST(SGOT) 26 U/L 07/26/2015 Comp Metabolic Ahe841 ALT(SGPT) 20 U/L 07/26/2015 Comp Metabolic Xft539 BILI T 0.5 mg/dL 07/26/2015 Comp Metabolic Rmf368 ALBUMIN 3.9 g/dL 07/26/2015 Comp Metabolic Onm810 TPRO 6.4 g/dL 07/26/2015 Comp Metabolic Uqz194 GLOB 2.5 g/dL 07/26/2015 Comp Metabolic Dgd210 A/G Ratio 1.6 Ratio 07/26/2015 Comp Metabolic Xou682 Osmo 277 mOsmo 07/26/2015 Review of Systems System Result Effective [...] General 1995 Ears/Nose/Throat lips/teeth/gingiva Overall: benign lips 05/22/2017 None [...] CPT -4: G0439 08/05/2018 DRAIN/INJECT JOINT/BURSA CPT-4: 78698 03/18/2018 TRIAMCINOLONE ACET INJ NOS CPT-4: J3301 03/18/2018 THER/PROPH/DIAG INJ SC/IM CPT-4: 36375 02/21/2018 TRIAMCINOLONE ACET INJ NOS CPT-4: J3301 02/21/2018 PPPS, SUBSEQ VISIT CPT -4: G0439 05/22/2017 TRIAMCINOLONE ACET INJ NOS CPT-4: J3301 09/14/2016 TRIAMCINOLONE ACET INJ NOS CPT-4: J3301 07/24/2016 THER/PROPH/DIAG INJ SC/IM CPT-4: 17183 07/24/2016 TRIAMCINOLONE ACET INJ NOS CPT-4: J3301 01/24/2016 TRIAMCINOLONE ACET INJ NOS CPT-4: J3301 07/26/2015 THER/PROPH/DIAG INJ SC/IM CPT-4: 70372 07/26/2015 Vital Signs Date Vital 08/26/2018 Blood Pressure 1: 166/84 Code : 8480-6 Heart Rate 1: 80 bpm Height: 6'4" SpO2: 98% Temperature: 36.7 (C) / 98.1 (F) Weight: 08/05/2018 Blood Pressure 1: 118/64 Code : 8480-6 BMI: 26.2 Code : 98138-4 Heart Rate 1 : 66 bpm Height: 6'4" SpO2: 97% Waist Measure (cm): 81 cm Weight: 215 lbs 07/25/2018 Blood Pressure 1: 128/78 Code : 8480-6 BMI: 26.2 Code : 14990-2 Heart Rate 1 : 68 bpm Height: 6'4" SpO2: 95% Weight: 215 lbs 07/22/2018 Blood Pressure 1: 142/78 Code : 8480-6 BMI: 26.7 Code : 13368-9 Heart Rate 1 : 64 bpm Height: 6'4" SpO2: 99% Weight: 219 lbs 03/18/2018 Blood Pressure 1: 136/84 Code : 8480-6 BMI: 26.5 Code : 61431-8 Heart Rate 1 : 79 bpm Height: 6'4" SpO2: 99% Weight: 218 lbs 11/27/2017 Blood Pressure 1: 132/64 Code : 8480-6 BMI: 27.8 Code : 32888-4 Heart Rate 1 : 41 bpm Height: 6'4" SpO2: 97% Weight: 228 lbs 11/19/2017 Blood Pressure 1: 140/88 Code : 8480-6 Blood Pressure 1: 148/76 Code: 8480-6 BMI: 27.3 Code: 06498-0 Heart Rate 1: 58 bpm Height: 6'4" SpO2: 98% Weight: 224 lbs 08/08/2017 Blood Pressure 1: 130/80 Code : 8480-6 BMI: 26.5 Code : 85372-6 Heart Rate 1 : 71 bpm Height: 6'4" SpO2: 98% Weight: 218 lbs 05/22/2017 Blood Pressure 1: 142/78 Code : 8480-6 BMI: 28.0 Code : 47937-0 Heart Rate 1 : 77 bpm Height: 6'4" SpO2: 94% Waist Measure (cm): 91 cm Weight: 230 lbs 05/21/2017 Blood Pressure 1: 144/72 Code : 8480-6 BMI: 28.1 Code : 26693-4 Heart Rate 1 : 74 bpm Height: 6'4" SpO2: 95% Weight: 230 lbs 8 oz 11/23/2016 Blood Pressure 1: 136/74 Code : 8480-6 BMI: 29.9 Code : 29984-4 Heart Rate 1 : 59 bpm Height: 6'4" SpO2: 94% Weight: 246 lbs 11/20/2016 Blood Pressure 1: 130/80 Code : 8480-6 BMI: 29.9 Code : 51766-4 Heart Rate 1 : 75 bpm Height: 6'4" SpO2: 98% Weight: 246 lbs 11/10/2016 Blood Pressure 1: 140/82 Code : 8480-6 BMI: 29.7 Code : 60768-1 Heart Rate 1 : 64 bpm Height: 6'4" SpO2: 94% Weight: 244 lbs 09/14/2016 Blood Pressure 1: 130/82 Code : 8480-6 BMI: 27.4 Code : 66786-0 Heart Rate 1 : 74 bpm Height: 6'4" SpO2: 96% Weight: 225 lbs 07/24/2016 Blood Pressure 1: 128/78 Code : 8480-6 BMI: 27.4 Code : 99782-1 Heart Rate 1 : 78 bpm Height: 6'4" SpO2: 94% Weight: 225 lbs 01/24/2016 Blood Pressure 1: 124/88 Code : 8480-6 BMI: 29.5 Code : 06706-4 Heart Rate 1 : 68 bpm Height: 6'4" SpO2: 98% Weight: 242 lbs 07/26/2015 Blood Pressure 1: 138/82 Code : 8480-6 Blood Pressure 1: 150/82 Code: 8480-6 BMI: 29.9 Code: 15302-5 Heart Rate 1: 68 bpm Height: 6'4" SpO2: 94% Weight: 246 lbs 03/24/2015 Blood Pressure 1: 114/84 Code : 8480-6 BMI: 29.8 Code : 20105-9 Heart Rate 1 : 67 bpm Height: [...] bleeding[ICD10: K57.20] [facility] CPT-4: 73541 08/26/2018 42826 EST. PATIENT, LEVEL IV Diagnosis: Pain in left wrist[ICD10: M25.532] Diagnosis: Other malaise[ICD10: R53.81] Diagnosis: Other fatigue[ICD10: R53.83] Lizz Hussein MD, [facility] CPT-4 : 36000 07/25/2018 ([id number]) 77837 EST. PATIENT, LEVEL IV Diagnosis: Essential (primary) hypertension[ICD10: I10] Diagnosis: Chronic pain syndrome[ICD10: G89.4] Diagnosis: Low back pain[ICD10: M54.5] Beverly Hussein MD, [facility] CPT- 4: 06748 07/22/2018 ([id number]) 00292 EST. PATIENT, LEVEL III Diagnosis: Sacroiliitis, not elsewhere classified[ICD10: M46.1] Diagnosis: Spinal instabilities, sacral and sacrococcygeal region[ICD10: M53.2X8 ] Diagnosis: Essential (primary) hypertension[ICD10: I10] Diagnosis: Chronic pain syndrome[ICD10: G89.4] Beverly Hussein MD, [facility] CPT-4: 20895 03/18/2018 26185 EST. PATIENT, LEVEL III Diagnosis: Pain in right knee[ICD10: M25.561] Lizz Hussein MD, [facility] CPT-4: 05956 11/27/2017 ([id number]) 60441 EST. PATIENT, LEVEL IV Diagnosis: Essential (primary) hypertension[ICD10: I10] Diagnosis: Chronic pain syndrome[ICD10: G89.4] Diagnosis: Vitamin D deficiency, unspecified[ICD10: E55.9] Beverly Hussein MD, [facility] CPT-4: 27243 11/19/2017 ([id number]) 68313 EST. PATIENT, LEVEL III Diagnosis: Olecranon bursitis, right elbow[ICD10: M70.21] Beverly Hussein MD, [facility] CPT-4: 88706 08/08/2017 ([id number]) 67928 EST. PATIENT, LEVEL IV Diagnosis: Essential (primary) hypertension[ICD10: I10] Diagnosis: Low back pain[ICD10: M54.5] Beverly Hussein MD, [facility] CPT- 4: 73082 05/21/2017 35056 EST. PATIENT, LEVEL III Diagnosis: Calculus of kidney[ICD10: N20.0] Lizz Hussein MD, [facility] CPT- 4: 23023 11/23/2016 ([id number]) 66305 EST. PATIENT, LEVEL III Diagnosis: Essential (primary) hypertension[ICD10: I10] Beverly Hussein MD, [facility] CPT-4: 92255 11/20/2016 71268 EST. PATIENT, LEVEL III Diagnosis: Nausea[ICD10: R11.0] Lizz Hussein MD, [facility] CPT-4: 39850 11/10/2016 ([id number]) 35579 EST. PATIENT, LEVEL III Diagnosis: Allergic rhinitis due to pollen[ICD10: J30.1] Diagnosis: Other benign neoplasm of skin of unspecified part of face[ICD10: D23.30] Kelsy Hussein MD, [facility] CPT-4: 67903 ([id number]) 19559 EST. PATIENT, LEVEL IV Diagnosis: Essential (primary) hypertension[ICD10: I10] Diagnosis: Vitamin D deficiency, unspecified[ICD10: E55.9] Diagnosis: Low back pain[ICD10: M54.5] Diagnosis: Mild intermittent asthma with (acute) exacerbation[ICD10: J45.21] Kelsy Hussein MD, [facility] CPT-4: 93453 07/24/2016 ([id number]) 41015 EST. PATIENT, LEVEL IV Diagnosis: Essential (primary) hypertension[ICD10: I10] Diagnosis: Allergic rhinitis due to pollen[ICD10: J30.1] Diagnosis: Low back pain[ICD10: M54.5] Kelsy Hussein MD, [facility] CPT-4: 22054 01/24/2016 ([id number]) 46299 EST. PATIENT, LEVEL IV Diagnosis: Essential (primary) hypertension[ICD10: I10] Diagnosis: Vitamin D deficiency, unspecified[ICD10: E55.9] Diagnosis: Chronic pain syndrome[ICD10: G89.4] Diagnosis: Allergic rhinitis, unspecified[ICD10: J30.9] Kelsy Hussein MD, [facility] CPT-4: 96066 07/26/2015 ([id number]) OFFICE VISIT, NEW - LEVEL 4 Diagnosis: ESSENTIAL HYPERTENSION[ICD9: 401.9] Diagnosis: CHRONIC PAIN SYNDROME[ICD9: 338.4] Diagnosis: Skin change[ICD9: 782.9] [facility] CPT-4: 60806 03/24/2015 Plan of Care Planned Activity Notes Codes Status Date Appointment: Lizz Wilks WPtel: [phone] [facility] (15 min) Moderate 08/30/2018 Appointment: Kelsy Hsu WPtel: [facility] [phone] [place] (15 min) Moderate 08/27/2018 Visit [...] 4PM today. 08/26/2018 Appointment: Lizz Wilks WPtel: [facility] [place] [place] (30 min) Complex 08/26/2018 Patient Education: Patient Medication Summary Completed 08/26/2018 Appointment: Kelsy Hsu WPtel: [facility] [phone] [place] (15 min) Moderate 08/19/2018 Appointment: Lizz Wilks WPtel: [address] [place], [place] [phone] (15 min) Moderate 08/07/2018 Visit Plan: Medicare [...] surrogate. 08/05/2018 Appointment: Lizz Wilks WPtel: [phone] [place] [facility] - Annual Wellness Visit 08/05/2018 Patient Education: [...] concerns. 07/25/2018 Appointment: Lizz Wilks WPtel: [phone] [place] (15 min) Moderate 07/25/2018 Patient Education: Patient [...] - 07/22/2018 Appointment: Beverly Hussein [facility]Ptel: [phone] (15 min) Moderate 07/22/2018 Patient Education: Patient [...] dose thereafter. 03/18/2018 Appointment: Beverly Hussein WPtel: [phone] [facility] (15 min) Moderate 03/18/2018 Patient Education: Patient [...] not improve. 11/27/2017 Appointment: Lizz Wilks WPtel: [facility] [place] [place] (30 min) Complex 11/27/2017 Patient Education: Patient Medication Summary Completed 11/27/2017 Care Plan: [facility] Pending 11/27/2017 Visit Plan: Hypertension -usually pt [...] current medications. 11/19/2017 Appointment: Beverly Hussein WPtel: [phone] [facility] [place] (15 min) Moderate 11/19/2017 Patient Education: [...] care surrogate. 05/22/2017 Appointment: Kelsy Hsu WPtel: [facility] [phone] [facility] - Annual Wellness Visit 05/22/2017 Patient Education: [...] into Yoga. 05/21/2017 Appointment: Beverly Hussein WPtel: [phone] (15 min) Moderate 05/21/2017 Patient Education: Patient Medication Summary Completed 05/21/2017 Patient Education: Hypertension Completed 05/21/2017 Care Plan: X-RAY EXAM OF ABDOMEN LOINC : 59290-2 Pending 12/17/2016 Visit Plan: Left flank pain - KUB shows renal caliculi - will refer to Dr. Robledo. Pt is to notify clinic with any changes or concerns. 11/23/2016 Appointment: Lizz Wilks WPtel: [phone] [facility] (15 min) Moderate 11/23/2016 Patient Education: [...] cheek 11/20/2016 Appointment: Beverly Hussein WPtel: [phone] [facility] (15 min) Moderate 11/20/2016 Patient Education: Patient [...] can exacerbate esophageal reflux. 11/10/2016 Appointment: Lizz Wilsk WPtel: [facility] [place] (30 min) Complex 11/10/2016 Patient Education: Patient Medication Summary Completed 11/10/2016 Referral: Poncho Mock [id number] Referral Completed 11/03/2016 Visit Plan: Cyst-right cheek-refer to Dr Mock for removal Cijpdumdj-mvekcn-iozrubllq symptoms-kenalog injection today in the office- samples of advair provided and instructed on use. 09/14/2016 Appointment: Kelsy Hsu WPtel: [phone] [phone] [place] (30 min) Complex 09/14/2016 Patient Education: Patient Medication Summary Completed 09/14/2016 Care Plan: Referral Order SNOMED-CT : [id number] Pending 09/14/2016 Visit Plan: Hypertension - well [...] prn use 07/24/2016 Appointment: Kelsy Hsu WPtel: [address] [place], [place] [phone] (15 min) Moderate 07/24/2016 Patient Education: Patient [...] spray. Kenalog injection today in the office Zyflm-Jfvdmd-woikbg to symbicort Low back pain-recommend stretches for [...] Education: Hypertension Completed 03/24/2015 [facility] [place] Referral Appointment Requested Instructions Comment [...] spray. Kenalog injection today in the office Yruwj-Wpdais-qtabyo to symbicort Low back pain-recommend stretches for [...] Cyst-right cheek-refer to Dr Mock for removal Hhujsjsbx-kjemfc-plphnnkcj symptoms-kenalog injection today in the office- samples [...]
--- NOTE | 2018-10-17 10:43 | Progress Note-Pre Operative ---
Pre-Operative Progress Note H&P Reviewed The H&P was reviewed, patient examined and no changes noted. 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
[2018-10-17] MEDS ORDERED: ceFAZolin 2 GM IV Premixed 50 ML IV ONE (10:45)
[2018-10-17] MEDS ORDERED: metroNIDAZOLE 500MG/100ML IVPB 100 ML IV ONE (10:45)
[2018-10-17] MEDS: LACTATED RINGERS 1,000 ML IV PRN ×3 (10:50→14:30)
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
[2018-10-17] MEDS ORDERED: CATHETER FLUSH 10 ML SYR IV PRN (11:15)
[2018-10-17] MEDS ORDERED: BUP/EPI 0.5% 1:200,000 (SENSORCAINE) 30 ML VIAL ONE (11:17)
[2018-10-17] MEDS ORDERED: SCOPOLAMINE 1.5 MG (TRANSDERM-SCOP) PATCH ONE (11:18)
[2018-10-17] MEDS ORDERED: HEParin (CENTRAL IV FLUSH) 500 UNIT/5 ML SYR ONE (11:18)
[2018-10-17] MEDS ORDERED: ONDANSETRON 4 MG/2 ML (SDV) Z0FRAN ONE ×3 (11:18→15:38)
[2018-10-17] MEDS ORDERED: LIDOCAINE/EPI 1%-1:100,000 (XYLOCAINE) 20ML ONE (11:18)
[2018-10-17] MEDS ORDERED: FAMOTIDINE 20MG/2ML IV (PEPCID) ONE (11:19)
[2018-10-17] MEDS ORDERED: HYDROCORTISONE 100 MG/2 ML (Solu-CORTEF) VIAL ONE (11:19)
[2018-10-17] MEDS ORDERED: LIDOCAINE PF 2% 5 ML (XYLOCAINE) VIAL ONE (11:26)
[2018-10-17] MEDS ORDERED: ROCURONIUM 10 MG/ML 5 ML SYRINGE IV ONE ×2 (11:26→14:35)
[2018-10-17] MEDS ORDERED: proPOfol 200 MG/20 ML (DIPRIVAN) VIAL IV ONE (11:26)
[2018-10-17] MEDS ORDERED: SEVOFLURANE (ULTANE) 15 ML INHAL SOLN ONE ×16 (11:26→16:28)
[2018-10-17] MEDS ORDERED: fentaNYL INJECTION 100 MCG/2 ML AMP ONE ×3 (11:27→15:33)
[2018-10-17] MEDS: FAMOTIDINE 20MG/2ML IV (PEPCID) IVP SCH (11:36)
--- NOTE | 2018-10-17 11:54 | Progress Note-Pre Operative ---
Pre-Operative Progress Note H&P Reviewed The H&P was reviewed, patient examined and no changes noted. Date Seen by Provider: Oct 17, 2018 Time Seen by Provider: 11:53 Date H&P Reviewed: Oct 17, 2018 Time H&P Reviewed: 11:53 Pre-Operative Diagnosis: COLON MASS NATE BARRETO MD Oct 17, 2018 11:54
[2018-10-17] MEDS ORDERED: ONDANSETRON 4 MG/2 ML (SDV) Z0FRAN IVP ONE (12:00)
[2018-10-17] MEDS ORDERED: HYDROCORTISONE 100 MG/2 ML (Solu-CORTEF) VIAL IV ONE (12:00)
[2018-10-17] MEDS ORDERED: SCOPOLAMINE 1.5 MG (TRANSDERM-SCOP) PATCH TD ONE (12:00)
[2018-10-17] MEDS ORDERED: PHENYLEPHRINE 100 MCG/ML 10 ML (ANESTHESIA) SYR ONE (12:37)
--- NOTE | 2018-10-17 13:16 | Progress Note-Post Operative ---
Post-Operative Progess Note Surgeon (s)/Canal Boat Operator (s) Surgeon NATE BARRETO MD Canal Boat Operator: NONR Pre-Operative Diagnosis COLON MASS Post-Operative Diagnosis SAME Procedure & Operative Findings Date of Procedure 10/17/18 Procedure Performed/Findings CYSTO AND INSERTION OF LT URETERAL STENT Anesthesia Type GENERAL Estimated Blood Loss Estimated blood loss (mL): NONE Specimens/Packing Specimens Removed NONE Packing: NONE NATE BARRETO MD Oct 17, 2018 13:16
--- NOTE | 2018-10-17 14:15 | OPERATIVE REPORT ---
DATE OF SERVICE: 10/17/2018 PREOPERATIVE DIAGNOSIS: Left colon mass. POSTOPERATIVE DIAGNOSIS: Left colon mass. OPERATION PERFORMED: Cystoscopy and insertion of left ureteral stent. SURGEON: Blaine Barreto MD ANESTHESIA: General. COMPLICATIONS: None. DESCRIPTION OF PROCEDURE: Under satisfactory general anesthesia, the patient in lithotomy position, genitalia were prepped and draped in usual sterile fashion. A cystoscope was introduced under vision. The anterior urethra was normal. The prostate was surgically absent. The bladder neck was open. The bladder was inspected and was essentially normal except for some trabeculations. Using the foroblique lens, I passed a 6-Persian ureteral catheter into the left ureteral orifice guided all the way up to the kidney fluoroscopically as much as possible and the recovery of the ureter from the catheter. Alongside, after removing the cystoscope, I inserted a 16-Persian Valadez catheter and connected both catheters to each other and the bag drainage. The patient tolerated the procedure and anesthesia well and Dr. Banuelos proceeded with the rest of his surgery that he will dictate. Job ID: [id number] DocumentID: [id number] Dictated Date: 10/17/2018 13:18:21 B2B Appointment Setter Date: 10/17/2018 14:14:31 Dictated By: BLAINE BARRETO MD
[2018-10-17] MEDS ORDERED: ROPIVACAINE 5MG/ML 30ML VIAL ONE (14:35)
[2018-10-17] MEDS ORDERED: NEOSTIGMINE 1 MG/ML 5 ML SYRINGE ONE (15:23)
[2018-10-17] MEDS ORDERED: GLYCOPYRROLATE 0.2 MG/ML (ROBINUL) 2 ML VIAL ONE (15:23)
[2018-10-17] MEDS ORDERED: HYDROmorphone 2 MG/ML VIAL (DILAUDID) ONE (15:38)
--- NOTE | 2018-10-17 15:40 | Progress Note-Post Operative ---
Post-Operative Progess Note Surgeon (s)/Personal Computer Specialist (s) Surgeon LYDIA GUIDRY MD Personal Computer Specialist: emi sanches ASSISTANT [employer]IT FORESTER Pre-Operative Diagnosis recurrent complicated sigmoid diverticulitis Post-Operative Diagnosis same Procedure & Operative Findings Date of Procedure 10/17/18 Procedure Performed/Findings laparoscopic low anterior rectosigmoid resection, take down splenic flexure, left subclavian central venous catheter placement. Anesthesia Type GET Estimated Blood Loss Estimated blood loss (mL): 450ml Specimens/Packing Specimens Removed sigmoid-rectum Packing: NONE LYDIA GUIDRY MD Oct 17, 2018 15:40
[2018-10-17] MEDS ORDERED: NS IV 1000 ML 1,000 ML IV SCH (15:41)
[2018-10-17] MEDS ORDERED: NALOXONE 0.4 MG/ML 1 ML (NARCAN) VIAL IV PRN (15:45)
[2018-10-17] MEDS ORDERED: METOCLOPRAMIDE INJ 10 MG/2 ML (REGLAN) IV PRN (15:45)
[2018-10-17] MEDS ORDERED: diphenhydrAMINE 50 MG/ML INJ (BENADRYL) IV PRN (15:45)
[2018-10-17] MEDS ORDERED: fentaNYL INJECTION 1,000 MCG in NS (IVPB) 80 ML IV SCH (15:45)
[2018-10-17] MEDS ORDERED: ONDANSETRON 4 MG/2 ML (SDV) Z0FRAN IV PRN (15:45)
[2018-10-17] MEDS ORDERED: diphenhydrAMINE 50 MG/ML INJ (BENADRYL) IVP PRN (15:45)
[2018-10-17] MEDS ORDERED: ONDANSETRON 4 MG/2 ML (SDV) Z0FRAN IVP PRN (16:15)
[2018-10-17] MEDS ORDERED: HYDROmorphone 2 MG/ML VIAL (DILAUDID) IV ONE (16:15)
--- NOTE | 2018-10-17 16:57 | Diagnostic Imaging Report ---
INDICATION: Central line placement. COMPARISON: 08/14/2018. FINDINGS: Single view of the chest demonstrates left subclavian central venous catheter with the tip in the SVC. The NG tube is just within the stomach. The side-port is in the distal esophagus. The heart is prominent with central vascular congestion. There is no pneumothorax. No effusion. IMPRESSION: 1. Well-positioned left subclavian venous catheter with the tip in the SVC. No pneumothorax. 2. Consider advancing the NG tube approximately 12 cm. 3. Cardiac enlargement with central vascular congestion. Dictated by: Dictated on workstation # [id number]
[2018-10-17] MEDS: 1/2 NS W/KCL 20 MEQ/L 1,000 ML IV SCH (17:42)
[2018-10-17] MEDS: metroNIDAZOLE 500MG/100ML IVPB 100 ML IV SCH (17:44)
[2018-10-17] MEDS: RT-ALBUTEROL SULF 2.5 MG/3 ML PRE-MIX VIAL INH SCH ×2 (18:22→21:58)
[2018-10-17] MEDS: ceFAZolin 2 GM IV Premixed 50 ML IV SCH (20:05)
[2018-10-17] MEDS: ENOXAPARIN 30 MG/0.3 ML (LOVENOX) SYR SC SCH (21:38)
[2018-10-17] MEDS: HYDROCORTISONE 100 MG/2 ML (Solu-CORTEF) VIAL IV SCH (21:38)
[2018-10-18] VITALS (16 sets, daily range): BP systolic 94–140; BP diastolic 52–89
--- NOTE | 2018-10-18 01:40 | OPERATIVE REPORT ---
DATE OF SERVICE: 10/17/2018 ATTENDING PRIMARY CARE PHYSICIAN: Low Harrington D.O. PREOPERATIVE DIAGNOSIS: Recurrent complicated sigmoid diverticulitis. POSTOPERATIVE DIAGNOSIS: Recurrent complicated sigmoid diverticulitis. PROCEDURE: Placement left ureteral stent by urology, placement of left subclavian central venous catheter. Laparoscopic low anterior rectosigmoid resection. SURGEON: Isadora Banuelos M.D. LAWN MOWER REPAIRER: Misael Sultana APRN. ANESTHESIA: General endotracheal. ESTIMATED BLOOD LOSS: 450 mL. FINDINGS: A significant chronic changes of sigmoid diverticulitis with chronic edema and adhesion tissue. Preoperatively, a right ureteral stent was placed. DISPOSITION: The patient tolerated the procedure well. INDICATIONS: The patient is a 78-year-old male, who has had recurrent issues, significant amount of pain in the left lower abdominal quadrant. On his first episode, a CT scan was performed, which showed a contained air bubbles, which most likely indicated a microperforation. He was admitted and conservatively managed. At that time, he reported that he does remember history of diverticulosis and his last colonoscopy was greater than 5 years ago. Upon further questioning, he reports that he did have the same type of symptoms before in the past 10 years requiring hospital admission as well as IV antibiotics. He improved and then was discharged home; however, approximately 1 week later developed recurrent pain in the left lower abdominal quadrant and was found to have a pericolonic abscess requiring interventional radiologic placement of drain as well as IV antibiotics. Again, we treated him conservatively. He does have medical problems including an autoimmune connective tissue disorder as well as atrial fibrillation and has been on chronic steroids for the past 20 years. He was able to improve over time with conservative management. Due to these episodes of diverticulitis as well as absence for colonoscopy, we recommended a colonoscopy to rule out malignancy which was performed recently which did show chronic diverticulitis; however, no active inflammation as well as no neoplasms. He is here for laparoscopic low anterior rectosigmoid resection as well as placement of a left ureteral stent for identification of left ureter. We will also place a central venous catheter for IV access. The patient was brought to the operating room, laid supine on the table. Dr. Robledo of Urology first proceeded with placement of cystoscopy and placement of a left ureteral stent. DESCRIPTION OF PROCEDURE: The patient was in lithotomy position. We then proceeded to place in the left subclavian central venous catheter and the chest and neck were prepped and draped in standard surgical fashion. The left subclavian vein was then cannulated with drawing of venous blood. The guidewire was then inserted with no resistance. A skin incision was then made using 11 blade and a tract was then created using a venous dilator and a triple lumen central venous catheter was then placed over the guidewire using a Seldinger technique. The guidewire was then removed. The catheter was then sutured to the skin using 3-0 Vicryl interrupted sutures. The catheter was then covered with a sterile Op-Site. The abdomen and perineum were then prepped and draped in standard surgical fashion and the patient left in the lithotomy position. A 0.5% Marcaine was then used to anesthetize the left upper abdominal quadrant and a transverse skin incision made using a 15 blade. An 0 silk suture was applied to the medial aspect of the incision for retraction and a Veress needle inserted with a low opening pressure of 0 mmHg and the abdomen was insufflated to 15 mmHg pressure. The Veress needle removed and a 5 mm Xcel trocar placed followed by a 5 mm 45-degree angle laparoscope visualizing the peritoneal cavity. A 4-quadrant abdominal exploration was performed. There was chronic changes of the sigmoid colon consistent with chronic diverticulitis. There was also adhesive tissue from a previous abscess. The descending colon for the most part looked grossly normal. The remainder of the small bowel appeared normal as well. We then proceeded to place a supraumbilical 10 mm port after the skin and peritoneal lining were anesthetized using 0.5% Marcaine with epinephrine and a vertical skin incision made using a 15 blade. In a similar manner, a suprapubic 5 mm port was placed. The patient was then placed in Trendelenburg position as well as a left side up, right side down. We first proceeded with lateral to medial dissection of the peritoneal reflection. There was significant adhesion tissue in this region from his previous episodes of diverticulitis as well as diverticular abscess. We proceeded inferiorly and I proceeded with our dissection until the level of peritoneal reflection. We then proceeded with a medial to lateral dissection in a similar fashion using the Sonicision with visualization of good hemostasis. We did get additional length of the descending colon by taking down the white lines of Toldt as well as the splenic flexure. We did this using the Sonicision as well as blunt dissection. The rectum was stapled and transected with TA green load stapler. The diseased portion of the rectum and sigmoid colon were pulled out through and extended the suprapubic incision that was extended vertically. We reached an area of the descending colon with no inflammation and placed a pursestring suture and transected the colon using a 10 blade. We then dilated the colon up to 31 mm with slight resistance, so we decided to proceed with a 29 mm EEA stapler. The anvil was then placed and then the Pursestrings tied. The colon was then placed back into the peritoneal cavity. I then went down to the anus and rectum where there were no palpable masses and the dilator placed without any resistance and visualized under laparoscopy. The EEA 29 mm stapler was then placed and the stem open. The anvil was then easily connected to the stem and closed the staple. Stapler was set to medium resistance and fired. Both proximal and distal anastomotic donuts were identified and intact. Tisseel fibrin glue was then placed onto the staple line. A 19-Maori Tacos-Adams drain was placed around the area of anastomosis and pulled through the left upper abdominal quadrant 5 mm port site. The catheter was then tied to the skin using 3-0 nylon suture. The abdomen was desufflated and remaining ports removed. The extended incision to the abdomen in the suprapubic region was then closed using #1 looped PDS suture. The 10 mm port fascia was then closed using a 0 Vicryl suture. The two skin incisions were then closed using 4-0 Monocryl subcuticular sutures and covered with Dermabond. The patient tolerated the procedure well. We will admit him to the ICU. We will await bowel function and proceed with NG tube decompression as well as IV fluids. We will use a MANAGER OF COMPLIANCE with fentanyl for pain control and also DVT prophylaxis with calf SCDs, early ambulation as well as Lovenox injections. Once he does have some bowel function, we will remove his nasogastric tube and start clear liquids and advance as tolerated. Job ID: [id number] DocumentID: [id number] Dictated Date: 10/17/2018 16:16:26 Rug Washer Date: 10/18/2018 01:39:35 Dictated By: ISADORA BANUELOS MD [facility]
[2018-10-18] MEDS: 1/2 NS W/KCL 20 MEQ/L 1,000 ML IV SCH ×4 (02:05→17:46)
[2018-10-18] MEDS: RT-ALBUTEROL SULF 2.5 MG/3 ML PRE-MIX VIAL INH SCH ×6 (02:09→21:11)
[2018-10-18] MEDS ORDERED: HYDROmorphone 2 MG/ML VIAL (DILAUDID) ONE (03:07)
--- NOTE | 2018-10-18 03:15 | NUR ---
PT C/O WORSENING PAIN, EICU NOTIFIED. ORDERS RECEIVED FOR DILAUDID 1MG AND TO CHANGE SETTINGS ON FENTANYL SURFACE PLATE FINISHER TO 20 MCG EVERY 6 MINUTES WITH A LOCK OUT OF 400MCG IN 4 HOURS
[2018-10-18] MEDS: ceFAZolin 2 GM IV Premixed 50 ML IV SCH ×2 (03:44→11:02)
[2018-10-18] MEDS: metroNIDAZOLE 500MG/100ML IVPB 100 ML IV SCH ×2 (03:44→14:22)
[2018-10-18 03:59] LABS: HEMOGLOBIN 10.8 G/DL (13.3-17.7); MEAN PLATELET VOLUME 9.4 FL (7.4-10.4); WHITE BLOOD COUNT 7.7 10^3/uL (4.3-11.0)
[2018-10-18 04:15] LABS: BUN/CREATININE RATIO 22; CALCIUM 8.8 MG/DL (8.5-10.1); CARBON DIOXIDE 27 MMOL/L (21-32); CHLORIDE 106 MMOL/L (98-107); CREATININE SERUM 0.73 MG/DL (0.60-1.30); GFR ESTIMATED > 60; GLUCOSE 120 MG/DL (70-105); POTASSIUM 4.1 MMOL/L (3.6-5.0); SODIUM 140 MMOL/L (135-145)
[2018-10-18] MEDS ORDERED: HYDROmorphone 2 MG/ML VIAL (DILAUDID) IV PRN (04:45)
--- NOTE | 2018-10-18 05:00 | NUR ---
PT VERBALIZES RELIEF FROM CHANGE IN PAIN MED, RATING IT AT 3 NOW INSTEAD OF 10
[2018-10-18] MEDS: PANTOPRAZOLE 40 MG (PROTONIX) TAB PO SCH (06:33)
[2018-10-18] MEDS: HYDROCORTISONE 100 MG/2 ML (Solu-CORTEF) VIAL IV SCH ×2 (08:25→20:24)
[2018-10-18] MEDS: FAMOTIDINE 20MG/2ML IV (PEPCID) IVP SCH (08:26)
[2018-10-18] MEDS: ENOXAPARIN 30 MG/0.3 ML (LOVENOX) SYR SC SCH ×2 (08:26→20:25)
[2018-10-18] MEDS: SENNA W/DOCUSATE (SENOKOT S) TABLET PO SCH (08:32)
[2018-10-18] MEDS ORDERED: PANTOPRAZOLE 40 MG (PROTONIX) VIAL IV SCH (09:00)
[2018-10-18] MEDS: oxyCODONE 5 MG/5 ML ORAL SOLN (roxiCODONE) 5 ML UDC PO PRN (09:10)
--- NOTE | 2018-10-18 09:55 | Consultation ---
History of Present Illness History of Present Illness Patient Consulted On(loren/time) 10/18/18 09:55 Date Seen by Provider: Oct 18, 2018 Time Seen by Provider: 09:30 Reason for Visit: CHRONIC RECURRENT DIVERTICULITIS History of Present Illness PT IS A 78 Y/O MALE WHO IS WELL KNOWN TO ME FROM CLINIC. HE HAS HAD MULTIPLE BOUTS OF ABDOMINAL PAIN WITH HOSPITALIZATION OVER THE PAST YEAR. HE WAS FOUND TO HAVE DIVERTICULITIS WITH A SIGMOID MICROPERFORATION AND AFTER APPROPRIATE TREATMENT WITH IV ANTIBIOTICS AND THEN ORAL ANTIBIOTICS AND DRAIN PLACEMENT, HE WAS SCHEDULED FOR SURGICAL RESECTION. THE PT WAS TAKEN TO SURGERY YESTERDAY BY DR. GUIDRY WITH SUCCESSFUL RESECTION. THIS MORNING JAMES STATES THAT HE IS FEELING BETTER, HE HAS PAIN IN HIS STOMACH, BUT IT IS NOT BAD HE ANTICIPATED. HE IS WONDERING IF THE NG TUBE IS GOING TO BE REMOVED SOON AND IS WONDERING WHEN HE CAN EAT. Allergies and Home Medications Allergies Coded Allergies: No Known Drug Allergies (Verified , 08/14/18) Home Medications Albuterol Sulfate 1 Puff Puff, 2 PUFF INH Q4H PRN for SHORTNESS OF BREATH, ( Reported) Fluticasone/Salmeterol 1 Each Blst.w.dev, 1 PUFF IH DAILY, (Reported) Hydrocodone/Acetaminophen 1 Each Tablet, 1 TAB PO QID PRN for PAIN-MILD, ( Reported) Olmesartan Medoxomil 20 Mg Tablet, 20 MG PO DAILY, (Reported) Prednisone 10 Mg Tab, 10 MG PO DAILY, (Reported) Patient Home Medication List Home Medication List Reviewed: Yes Past Usgsutd-Ekwsjv-Rtxddb Hx Past Med/Social Hx: Reviewed Nursing Past Med/Soc Hx, Reviewed and Corrections made Patient Social History Alcohol Use: Occasionally Uses Recreational Drug Use: No 2nd Hand Smoke Exposure: No Recent Foreign Travel: No Contact w/Someone Who Travel: No Recent Infectious Disease Expo: No Recent Hopitalizations: Yes (OUT 08/10/18) Ebola Symptoms: Joint and Muscle Aches (CHRONIC), Stomach Pain Physical Abuse: No Sexual Abuse: No Mistreated: No Fear: No Immunizations Up To Date Tetanus Booster (TDap): Unknown PED Vaccines UTD: Yes Date of Pneumonia Vaccine: Jul 15, 2016 Date of Influenza Vaccine: Jul 29, 2018 Seasonal Allergies Seasonal Allergies: Yes Past Medical History Surgeries: Yes (ROBOTIC PROSTATECTOMY (MRSA POST-OP 2009), heart ablation) Gallbladder Respiratory: Yes (ASTHMA) Asthma, Sleep Apnea Currently Using CPAP: Yes Currently Using BIPAP: No Cardiac: Yes (HX A FLUTTER-HEART ABALATION SEVERAL YRS AGO)) Hypertension Neurological: No Reproductive Disorders: No Sexually Transmitted Disease: No HIV/AIDS: No Genitourinary: Yes Prostate Problems, Kidney Stones Gastrointestinal: Yes Diverticulosis 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, Chronic Back Pain Endocrine: No HEENT: No Loss of Vision: Denies Hearing Impairment: Denies Cancer: Yes Bladder, Prostate, Skin Did You Recieve Any Treatments: Yes What Type of Treatment Did You: Surgical Intervention Psychosocial: No Integumentary: No Blood Disorders: No Adverse Reaction/Blood Tranf: No Family Medical History Reviewed and Corrections made Dementia 19 MOTHER FH: lung cancer 19 FATHER Cancer, Hypertension, Lung Disease, Other Conditions/Hx (DEMENTIA) Review of Systems-General Constitutional: No chills, No fever, No malaise; weakness EENTM: No hoarseness, No mouth pain, No throat swelling Respiratory: No cough, No dyspnea on exertion, No short of breath Cardiovascular: No chest pain, No palpitations Gastrointestinal: abdominal pain; No nausea, No vomiting; other (NG TUBE IN PLACE AND SURGICAL SITES SLIGHTLY PAINFUL) Genitourinary: other (JONES IN PLACE) Musculoskeletal: muscle weakness (CHRONIC) Psychiatric/Neurological: No Symptoms Reported All Other Systems Reviewed Negative Unless Noted: Yes Physical Exam-General Problems Physical Exam Vital Signs Vital Signs - First Documented 10/17/18 10:45 Temp 98.7 Pulse 88 Resp 18 B/P (MAP) 157/92 (113) Pulse Ox 96 O2 Delivery Room Air Capillary Refill : General Appearance: WD/WN, no apparent distress Eyes: Bilateral Eye Normal Inspection, Bilateral Eye PERRL, Bilateral Eye EOMI HEENT: PERRL/EOMI, pharynx normal, other Neck: non-tender, supple, normal inspection Respiratory: chest non-tender, lungs clear, normal breath sounds, no respiratory distress, no accessory muscle use Cardiovascular: regular rate, rhythm, no murmur Gastrointestinal: soft, other Rectal: deferred Extremities: normal range of motion, non-tender, no pedal edema, normal capillary refill Neurologic/Psychiatric: spray ii painter II-XII nml as tested, no motor/sensory deficits, alert, normal mood/affect, oriented x 3 Skin: normal color, warm/dry Lymphatic: no adenopathy Assessment/Plan Assessment/Plan Admission Diagnosis/Plan 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 GUIDRY ON PULLING OF THE NG TUBE. HYPERTENSION - CURRENT HYPOTENSION - HOLD OLMESARTAN AT THIS TIME. 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 COPD - RESTART ADVAIR AND ALBUTEROL BREATHING TREATMENTS. THANKS FOR THE CONSULT, WILL FOLLOW THIS PATIENT Admission Status: Inpatient Order (span 2 midnights) Reason for Inpatient Admission: SIGMOD DIVERTICULITIS WITH SURGICAL RESECTION - PT WILL REQUIRE AT LEAST 72 HOURS IN THE HOSPITAL FOR CONTROL OF SYMPTOMS AND MONITORING OF HIS INTAKE PRIOR LETTING PT GO HOME. Clinical Quality Measures DVT/VTE Risk/Contraindication: Risk Factor Score Per Nursin RFS Level Per Nursing on Admit: 4+=Very High JAMISON BILLY MD Oct 18, 2018 09:55
[2018-10-18] MEDS ORDERED: RT-ALBUTEROL SULF 2.5 MG/3 ML PRE-MIX VIAL INH PRN (11:00)
[2018-10-18] MEDS ORDERED: fentaNYL INJECTION 1,000 MCG in NS (IVPB) 80 ML IV SCH (11:00)
[2018-10-18] MEDS ORDERED: HYDROmorphone PF INJECTION 20 MG in NS (IVPB) 100 ML IV PRN (11:15)
[2018-10-18] MEDS ORDERED: CHLORASEPTIC SPRAY 177 ML LIQUID MC PRN (11:15)
--- NOTE | 2018-10-18 11:16 | Progress Note (SOAP) ---
Subjective Date Seen by a Provider: Oct 18, 2018 Time Seen by a Provider: 11:00 Subjective/Events-last exam doing well. ambulating with assistance well. does have some pain upon ambulation. good u/o. Objective Exam Vital Signs Date Time Temp Pulse Resp B/P (MAP) Pulse Ox O2 Delivery O2 Flow Rate FiO2 10/18/18 10:54 94 Nasal Cannula 2.00 10/18/18 09:00 70 17 95/57 (70) 97 Nasal Cannula 3.00 10/18/18 08:00 70 16 107/62 (77) 97 Nasal Cannula 3.00 10/18/18 07:57 97.5 10/18/18 07:57 20 10/18/18 07:40 69 10/18/18 07:05 Nasal Cannula 3.00 10/18/18 07:00 64 15 106/62 (77) 97 Nasal Cannula 3.00 10/18/18 06:00 71 28 97/67 (77) 97 Nasal Cannula 3.00 10/18/18 05:05 65 12 106/69 (81) 96 Nasal Cannula 3.00 10/18/18 04:00 97.6 10/18/18 04:00 78 12 94/55 (68) 94 Nasal Cannula 3.00 10/18/18 03:00 95 24 107/68 (81) 94 Nasal Cannula 3.00 10/18/18 02:10 96 Nasal Cannula 3.00 10/18/18 02:00 82 16 110/66 (81) 95 Nasal Cannula 3.00 10/18/18 01:00 93 10/18/18 01:00 93 10 107/68 (81) 96 Nasal Cannula 3.00 10/18/18 00:00 97.3 10/18/18 00:00 91 13 118/68 (85) 97 Nasal Cannula 3.00 10/17/18 23:00 93 27 126/67 (86) 91 Nasal Cannula 3.00 10/17/18 22:00 87 9 138/84 (102) 91 Nasal Cannula 3.00 10/17/18 22:00 99 Nasal Cannula 3.00 10/17/18 21:00 81 12 133/78 (96) 99 Nasal Cannula 3.00 10/17/18 20:00 97.8 Nasal Cannula 3.00 10/17/18 20:00 64 12 123/76 (92) 98 Nasal Cannula 3.00 10/17/18 19:00 91 10/17/18 19:00 91 22 132/78 (96) 97 OxyMask 2.00 10/17/18 18:23 98 OxyMask 3.00 10/17/18 18:00 89 13 117/86 (96) 94 OxyMask 2.00 10/17/18 17:45 84 5 126/88 (101) 92 OxyMask 2.00 10/17/18 17:30 82 12 128/80 (96) 95 OxyMask 2.00 10/17/18 17:15 72 12 123/75 (91) 95 Nasal Cannula 2.00 10/17/18 17:15 OxyMask 3.00 10/17/18 17:00 76 10/17/18 17:00 76 6 104/74 (84) 94 Nasal Cannula 2.00 I & O 10/18/18 07:00 Intake Total 2150 ml Output Total 2895 ml Balance -745 ml Capillary Refill : General Appearance: No Apparent Distress HEENT: PERRL/EOMI Neck: Full Range of Motion Respiratory: Chest Non Tender, Rales Cardiovascular: Regular Rate, Rhythm Gastrointestinal: soft, tenderness, other (wounds clean/dry) Extremity: Normal Capillary Refill Neurologic/Psychiatric: Alert, Oriented x3 Skin: Normal Color Lymphatic: No Adenopathy Results Lab Laboratory Tests 10/18/18 03:45: White Blood Count 7.7, Red Blood Count 3.81L, Hemoglobin 10.8L, Hematocrit 33L, Mean Corpuscular Volume 88, Mean Corpuscular Hemoglobin 28, Mean Corpuscular Hemoglobin Concent 32, Red Cell Distribution Width 15.0H, Platelet Count 184, Mean Platelet Volume 9.4, Sodium Level 140, Potassium Level 4.1, Chloride Level 106, Carbon Dioxide Level 27, Anion Gap 7, Blood Urea Nitrogen 16, Creatinine 0.73, Estimat Glomerular Filtration Rate > 60, BUN/Creatinine Ratio 22, Glucose Level 120H, Calcium Level 8.8 Assessment/Plan Assessment/Plan Assess & Plan/Chief Complaint s/p laparoscopic low anterior colorectal resection for complicated diverticulitis. transfer to floor. continue stress dose steroids. cont amublation and PT. cont IS and breathing tx. Clinical Quality Measures DVT/VTE Risk/Contraindication: Risk Factor Score Per Nursin RFS Level Per Nursing on Admit: 4+=Very High LYDIA GUIDRY MD Oct 18, 2018 11:16
--- NOTE | 2018-10-18 11:18 | Physical Therapy Evaluation ---
PT Evaluation-General Medical Diagnosis Admission Date Oct 17, 2018 at 10:23 Medical Diagnosis: diverticulitis Onset Date: Oct 17, 2018 Therapy Diagnosis Therapy Diagnosis: weakness; abn gait Height/Weight Height (Feet): 6 Height (Inches): 3.00 Weight (Pounds): 210 Weight (Ounces): 0.0 Precautions Precautions/Isolations: Fall Prevention, Standard Precautions, Pressure Ulcer Referral Physician: Lakisha Reason for Referral: Evaluation/Treatment Medical History Pertinent Medical History: HTN Current History admitted for complaints of diverticulitis; post colon resection Reviewed History: Yes Social History Home: Single Level Current Living Status: Spouse Entry Into Home: Stairs With Railing Prior/Core FIM Prior Level of Function Therapy Code Descriptions/Definitions Functional [place] Measure: 0=Not Assessed/NA 4=Minimal Assistance 1=Total Assistance 5=Supervision or Setup 2=Maximal Assistance 6=Modified [place] 3=Moderate Assistance 7=Complete [place] Therapy Quality Codes: 6 Independent with activity with or without an assistive device 5 Patient requires set up or clean up by helper. Patient completes activity by themselves 4 Supervision or touching assist (CGA). [place] provide cues , steadying assist 3 The helper provides less than half the effort to complete the activity 2 The helper provides more than half the effort to complete the activity 1 Dependent. The helper does all the effort to complete an activity 7 Patient refused to complete or attempt activity 9 The patient did not perform the activity before the current illness or injury 88 Not attempted due to Medical conditions or safety concerns Functional Abilities and Goals: Independent: Patient completed the activities by him/herself, with or without an assistive device, with no assistance from a helper. Needed Some Help: Patient needed partial assistance from another person to complete activities. Dependent: A helper completed the activities for the patient. Unknown: Not Applicable: Bed Mobility: 7 Transfers (B,C,W/C) (FIM): 7 Gait: 7 Stairs: 7 Indoor Mobility (Ambulation): Independent Stairs: Independent Indep at [facility] and was a community ambulator and still drive.s PT Evaluation-Current Subjective Agreeable to PT. Pain Numeric Pain Scale: 8 Location: Incisional Location Body Site: Abdomen Pain Description: Stabbing Comment: post surgical Pt/Family Goals Return home when able Objective Patient Orientation: Person, Place, Time, Situation Problem Solving: Good Attachments: NG Tube, Oxygen, Drains, Valadez Catheter, IV ROM/Strength ROM Lower Extremities wNL Strength Lower Extremities WNL Integumentary/Posture Integumentary Refer to nursing notes. Bowel Incontinence: No Bladder Incontinence: Valadez Cath Posture normal and symmetrical Neuromuscular (Tone, Coordination, Reflexes) WFL Sensory Vision: Wears Glasses Hearing: Functional Sensation Right Lower Extremit: Intact Sensation Left Lower Extremity: Intact Transfers Therapy Code Descriptions/Definitions Functional [place] Measure: 0=Not Assessed/NA 4=Minimal Assistance 1=Total Assistance 5=Supervision or Setup 2=Maximal Assistance 6=Modified [place] 3=Moderate Assistance 7=Complete [place] Transfers (B, C, W/C) (FIM): 4 Supine to/from Sit: 4 Sit to/from Stand: 4 Pt requires min alba tto sit up in bed and transfer to the side. Pt able to trnasfer to a stand with CGA and skilled cues for sequencing and safety. Pt took 3-4 steps to turn to sit in the chair. Up in chair post treatment with needs met. Instructed pt to sit up approx an hour and to try to sit up in chair later today again. Balance Sitting Static: Good Sitting Dynamic: Good Standing Static: Good Standing Dynamic: Good Assessment/Needs Post abdominal surgery with a decrease in functional mobility. He will benefit from skilled PT to progress transfers and gait to allow him to return home mod indep Rehab Potential: Good PT Skilled Nursing Goals Skilled Nursing Goals PT Skilled Nursing Goals Time Frame: Oct 25, 2018 Transfers (B,C,W/C) (FIM): 7 Gait (FIM): 6 Gait distance (FIM): 3=150 ft PT Plan Problem List Problem List: Activity Tolerance, Functional Strength, Safety, Balance, Gait, Transfer, Bed Mobility Treatment/Plan Treatment Plan: Continue Plan of Care Treatment Plan: Bed Mobility, Education, Functional Activity Kim, Functional Strength, Gait, Safety, Therapeutic Exercise, Transfers Treatment Duration: Oct 25, 2018 Frequency: 6 times per week Estimated Hrs Per Day: .25 hour per day Patient and/or Family Agrees t: Yes Safety Risks/Education Patient Education: Safety Issues Teaching Recipient: Patient Teaching Methods: Discussion Response to Teaching: Reinforcement Needed Time/GCodes Time In: 1025 Time Out: 1050 Total Billed Treatment Time: 25 Total Billed Treatment visit EVM 15 FA 10 OLIVIA GIRALDO PT Oct 18, 2018 11:18
--- NOTE | 2018-10-18 11:31 | NUR ---
PT TRANSFERRED TO [facility] VIA CHAIR W/ STAFF AND PERSONAL BELONGINGS. AT BEDSIDE. BEDSIDE REPORT GIVEN TO TERRANCE RM, NO QUESTIONS/CONCERNS VOICED.
--- NOTE | 2018-10-18 11:40 | NUR ---
CADD PUMP CHANGED TO DILAUDID PER DR PRESSLEY ORDER. 55ML CADD PUMP FENTANYL WASTED W/ TERRANCE RM.
--- NOTE | 2018-10-18 11:40 | NUR ---
REC'D PER WC FROM ICU. SEE ASSESSMENT. CHANGED TO DILAUDID PRESS MAINTAINER WITH NICOLÁS BILLY.
--- NOTE | 2018-10-18 14:25 | NUR ---
Pt is Orthodoxy and recently anointed. NPO today so cannot receive Communion.
--- NOTE | 2018-10-18 14:43 | Anesthesia-General Post-Op ---
General Patient Condition Mental Status/LOC: Same as Preop Cardiovascular: Satisfactory Nausea/Vomiting: Absent Respiratory: Satisfactory Pain: Controlled Complications: Absent Post Op Complications Complications None Follow Up Care/Instructions Patient Instructions None needed. Anesthesia/Patient Condition Patient Condition Patient is doing well, no complaints, stable vital signs, no apparent adverse anesthesia problems. LULA SHEPPARD DO Oct 18, 2018 14:43
--- NOTE | 2018-10-18 14:48 | NUR ---
MELLISA RT HERE AND REPORTS O2 DC'D. PT REMAINS ON END TIDAL CO2 MONITOR.
[2018-10-18] MEDS ORDERED: ONDANSETRON 4 MG/2 ML (SDV) Z0FRAN IVP PRN (15:45)
[2018-10-18] MEDS ORDERED: METOCLOPRAMIDE INJ 10 MG/2 ML (REGLAN) IVP PRN (15:45)
--- NOTE | 2018-10-18 17:37 | NUR ---
PT AND REQUEST END TIDAL CO2 MONITOR BY DC'D IT CONSTANTLY ALARMS. DR. GUIDRY NOTIFIED OF PT REQUEST AND ORDER REC'D TO DC.
[2018-10-18] MEDS: RT-ADVAIR HFA 115/21 MCG PER PUFF IH SCH (21:12)
[2018-10-19] MEDS: 1/2 NS W/KCL 20 MEQ/L 1,000 ML IV SCH ×4 (00:08→22:41)
[2018-10-19 04:00] VITALS: BP 139/73
[2018-10-19 05:19] LABS: HEMOGLOBIN 10.7 G/DL (13.3-17.7); MEAN PLATELET VOLUME 9.4 FL (7.4-10.4); RED CELL DISTRIBUTION WIDTH 15.4 % (10.0-14.5); WHITE BLOOD COUNT 8.1 10^3/uL (4.3-11.0)
[2018-10-19 05:42] LABS: BUN/CREATININE RATIO 17; CALCIUM 8.9 MG/DL (8.5-10.1); CARBON DIOXIDE 25 MMOL/L (21-32); CHLORIDE 105 MMOL/L (98-107); GFR ESTIMATED > 60; GLUCOSE 81 MG/DL (70-105); POTASSIUM 4.6 MMOL/L (3.6-5.0); SODIUM 138 MMOL/L (135-145)
[2018-10-19 05:43] LABS: ALANINE AMINOTRANSFERASE 11 U/L (0-55); ALKALINE PHOSPHATASE 36 U/L (40-136); BILIRUBIN,TOTAL 0.6 MG/DL (0.1-1.0); TOTAL PROTEIN 5.3 GM/DL (6.4-8.2)
[2018-10-19] MEDS: PANTOPRAZOLE 40 MG (PROTONIX) TAB PO SCH (06:01)
[2018-10-19] MEDS: RT-ALBUTEROL SULF 2.5 MG/3 ML PRE-MIX VIAL INH SCH ×5 (06:58→21:30)
[2018-10-19] MEDS ORDERED: PANTOPRAZOLE 40 MG (PROTONIX) VIAL IV SCH (07:00)
[2018-10-19 08:00] VITALS: BP 128/78
[2018-10-19] MEDS: FAMOTIDINE 20MG/2ML IV (PEPCID) IVP SCH (08:45)
[2018-10-19] MEDS: HYDROCORTISONE 100 MG/2 ML (Solu-CORTEF) VIAL IV SCH ×2 (08:45→20:29)
[2018-10-19] MEDS: ENOXAPARIN 30 MG/0.3 ML (LOVENOX) SYR SC SCH ×2 (08:46→20:29)
[2018-10-19] MEDS: SENNA W/DOCUSATE (SENOKOT S) TABLET PO SCH (08:46)
--- NOTE | 2018-10-19 09:23 | Physical Therapy Daily Note ---
PT Daily Note-Current Subjective Patient agrees to PT. No c/o. Pain Numeric Pain Scale: 3 Location Body Site: Abdomen Pain Description: Acute Mental Status Patient Orientation: Normal For Age Attachments: NG Tube, Drains, IV Transfers Therapy Code Descriptions/Definitions Functional [place] Measure: 0=Not Assessed/NA 4=Minimal Assistance 1=Total Assistance 5=Supervision or Setup 2=Maximal Assistance 6=Modified [place] 3=Moderate Assistance 7=Complete [place] Therapy Quality Codes: 6 Independent with activity with or without an assistive device 5 Patient requires set up or clean up by helper. Patient completes activity by themselves 4 Supervision or touching assist (CGA). [place] provide cues , steadying assist 3 The helper provides less than half the effort to complete the activity 2 The helper provides more than half the effort to complete the activity 1 Dependent. The helper does all the effort to complete an activity 7 Patient refused to complete or attempt activity 9 The patient did not perform the activity before the current illness or injury 88 Not attempted due to Medical conditions or safety concerns Transfers (B, C, W/C) (FIM): 5 Scootin Rollin Supine to/from Sit: 5 Sit to/from Stand: 5 Bed to/from Chair: 5 Gait Training Gait (FIM): 5 Distance (FIM): 3=150 ft Distance: 600' Gait Level of Assist: 5 Gait Persons Needed: 1 Gait Assistive Device: FWW steady gait sequence with no deviation Assessment Patient motivated with progress and is up in recliner with needs met. PT instructed patient and spouse to ambulate PRN in hallway with nursing staff. PT Photograph Editor Goals Long-Term Goals PT Photograph Editor Goals Time Frame: Oct 25, 2018 Transfers (B,C,W/C) (FIM): 7 Gait (FIM): 6 Gait distance (FIM): 3=150 ft PT Plan Treatment/Plan Treatment Plan: Continue Plan of Care Treatment Plan: Bed Mobility, Education, Functional Activity Kim, Functional Strength, Gait, Safety, Therapeutic Exercise, Transfers Treatment Duration: Oct 25, 2018 Frequency: 6 times per week Estimated Hrs Per Day: .25 hour per day Patient and/or Family Agrees t: Yes Time/GCodes Time In: 857 Time Out: 907 Total Billed Treatment Time: 10 Total Billed Treatment 1 visit FA 10 min HAKAN BARRY PT Oct 19, 2018 09:23
[2018-10-19] MEDS: RT-ADVAIR HFA 115/21 MCG PER PUFF IH SCH (10:28)
[2018-10-19 12:00] VITALS: BP 144/84
--- NOTE | 2018-10-19 12:07 | Progress Note-Hospitalist ---
Subjective HPI/CC On Admission Date Seen by Provider: Oct 19, 2018 Time Seen by Provider: 11:30 Subjective/Events-last exam Patient doing well Less confusion since minimizing pain meds Walking around well NGT still in place at bedside Noted + BS so that in encouraging but no flatus Urinating well and appreciate Urology consultation Review of Systems General: Fatigue Gastrointestinal: Abdominal Pain Neurological: Confusion Objective Exam Vital Signs Vital Signs Date Time Temp Pulse Resp B/P (MAP) Pulse Ox O2 Delivery O2 Flow Rate FiO2 10/19/18 12:00 99.3 87 18 144/84 (104) 93 Nasal Cannula 2.00 Capillary Refill : Less Than 3 Seconds General Appearance: No Apparent Distress, WD/WN, Chronically ill Respiratory: Chest Non Tender, Lungs Clear, Normal Breath Sounds, No Accessory Muscle Use, No Respiratory Distress Cardiovascular: Regular Rate, Rhythm, No Edema, No Gallop, No JVD, No Murmur, Normal Peripheral Pulses Gastrointestinal: Normal Bowel Sounds, No Organomegaly, No Pulsatile Mass, Soft , Tenderness Neurologic/Psychiatric: Alert, Oriented x3, No Motor/Sensory Deficits, Normal Mood/Affect, Disoriented (subtle) Results/Procedures Lab Laboratory Tests 10/19/18 05:05 Patient resulted labs reviewed. Assessment/Plan Assessment and Plan Assess & Plan/Chief Complaint Assessment: s/p uncomplicated sigmoid colon resection due to severe diverticulitis with recurrent infections Post op ileus with NGT in place Confusion now improved with minimal pain meds given COPD on ICS and Nebs PMR on chronic steroids Adrenal insufficiency due to chronic steroids on IV Hydrocortisone Plan: Monitor for confusion Ambulate NGT IVF IV hydrocortisone Monitor closely Diagnosis/Problems Diagnosis/Problems (1) Intestinal diverticular abscess Status: Resolved Resolution Date/Time: 10/19/18 @ 13:56 (2) HTN (hypertension) Status: Chronic Qualifiers: Hypertension type: essential hypertension Qualified Codes: I10 - Essential (primary) hypertension (3) REGINE on CPAP Status: Chronic (4) H/O prostatectomy Status: Chronic (5) Ileus following gastrointestinal surgery Status: Acute (6) Delirium Status: Acute (7) COPD (chronic obstructive pulmonary disease) Status: Chronic Qualifiers: COPD type: unspecified COPD Qualified Codes: J44.9 - Chronic obstructive pulmonary disease, unspecified (8) Anemia Status: Chronic Qualifiers: Anemia type: unspecified type Qualified Codes: D64.9 - Anemia, unspecified Clinical Quality Measures DVT/VTE Risk/Contraindication: Risk Factor Score Per Nursin RFS Level Per Nursing on Admit: 4+=Very High BARRON TAO DO Oct 19, 2018 12:07
--- NOTE | 2018-10-19 13:13 | Progress Note-Standard ---
Standard Progress Note Progress Notes/Assess & Plan Date Seen by a Provider: Oct 19, 2018 Time Seen by a Provider: 12:00 Progress/Assessment & Plan afebrile. Pain control adequate. Minimal output from the NG tube, which I have removed. Incisions dry. Clear liquid diet to be started Final Diagnosis sigmoid diverticulitis. ANNIE BRASHER MD Oct 19, 2018 13:13
[2018-10-19 16:00] VITALS: BP 135/63
[2018-10-19 20:04] VITALS: BP 117/60
[2018-10-19] MEDS: oxyCODONE 5 MG/5 ML ORAL SOLN (roxiCODONE) 5 ML UDC PO PRN (20:29)
[2018-10-19 23:30] VITALS: BP 130/64
[2018-10-20] VITALS (8 sets, daily range): BP systolic 109–152; BP diastolic 58–85
[2018-10-20] MEDS: oxyCODONE 5 MG/5 ML ORAL SOLN (roxiCODONE) 5 ML UDC PO PRN ×3 (00:35→12:03)
[2018-10-20] MEDS: RT-ALBUTEROL SULF 2.5 MG/3 ML PRE-MIX VIAL INH SCH ×5 (01:10→18:32)
[2018-10-20] MEDS: PANTOPRAZOLE 40 MG (PROTONIX) TAB PO SCH (05:42)
[2018-10-20] MEDS: RT-ADVAIR HFA 115/21 MCG PER PUFF IH SCH (07:01)
[2018-10-20] MEDS: HYDROCORTISONE 100 MG/2 ML (Solu-CORTEF) VIAL IV SCH (08:15)
[2018-10-20] MEDS: ENOXAPARIN 30 MG/0.3 ML (LOVENOX) SYR SC SCH ×2 (08:15→20:57)
[2018-10-20] MEDS: SENNA W/DOCUSATE (SENOKOT S) TABLET PO SCH (08:15)
[2018-10-20] MEDS: FAMOTIDINE 20MG/2ML IV (PEPCID) IVP SCH (08:15)
[2018-10-20] MEDS: 1/2 NS W/KCL 20 MEQ/L 1,000 ML IV SCH (08:23)
[2018-10-20] MEDS ORDERED: RT-ALBUTEROL SULF 2.5 MG/3 ML PRE-MIX VIAL INH PRN (11:15)
--- NOTE | 2018-10-20 12:00 | NUR ---
DR BRASHER DISCONTINUED/DISCONNECTED THE IV FLUIDS AND DILAUDID ORE PUNCHER. 57 MLS OF DILAUDID WASTED WITNESSED BY SUJEY JENSEN
--- NOTE | 2018-10-20 12:20 | Progress Note-Standard ---
Standard Progress Note Progress Notes/Assess & Plan Date Seen by a Provider: Oct 20, 2018 Time Seen by a Provider: 11:00 Progress/Assessment & Plan afebrile. Pain control adequate. Minimal output from the NG tube, which I have removed. Incisions dry. Clear liquid diet to be started. doing well. Passing flatus. Pain control reasonable. Abdomen showing very minimal postoperative tenderness. Diet could be advanced. Systolic hypertension, home medication resumed Final Diagnosis complicated sigmoid diverticulitis ANNIE BRASHER MD Oct 20, 2018 12:20
--- NOTE | 2018-10-20 12:53 | Progress Note-Hospitalist ---
Subjective HPI/CC On Admission Date Seen by Provider: Oct 20, 2018 Time Seen by Provider: 11:30 Subjective/Events-last exam Patient feeling much better NG tube was discontinued Had a shower Denies any pain Drain in place Passing flatus Review of Systems General: Fatigue Gastrointestinal: Abdominal Pain Objective Exam Vital Signs Vital Signs Date Time Temp Pulse Resp B/P (MAP) Pulse Ox O2 Delivery O2 Flow Rate FiO2 10/20/18 12:00 18 10/20/18 12:00 98.6 94 138/85 (102) 93 Room Air 10/20/18 07:01 21 10/19/18 16:00 2.00 Capillary Refill : Less Than 3 Seconds General Appearance: No Apparent Distress, WD/WN, Chronically ill Respiratory: Chest Non Tender, Lungs Clear, Normal Breath Sounds, No Accessory Muscle Use, No Respiratory Distress Cardiovascular: Regular Rate, Rhythm, No Edema, No Gallop, No JVD, No Murmur, Normal Peripheral Pulses Neurologic/Psychiatric: Alert, Oriented x3, No Motor/Sensory Deficits, Normal Mood/Affect Results/Procedures Lab Patient resulted labs reviewed. Assessment/Plan Assessment and Plan Assess & Plan/Chief Complaint Assessment: s/p uncomplicated sigmoid colon resection due to severe diverticulitis with recurrent infections Post op ileus with NGT in place Confusion now improved with minimal pain meds given COPD on ICS and Nebs PMR on chronic steroids Adrenal insufficiency due to chronic steroids on IV Hydrocortisone now DC and changed to PO Prednisone Plan: Monitor for confusion Ambulate IV hydrocortisone changed to PO prednisone Monitor closely Diagnosis/Problems Diagnosis/Problems (1) Intestinal diverticular abscess Status: Resolved Resolution Date/Time: 10/19/18 @ 13:56 (2) HTN (hypertension) Status: Chronic Qualifiers: Hypertension type: essential hypertension Qualified Codes: I10 - Essential (primary) hypertension (3) REGINE on CPAP Status: Chronic (4) H/O prostatectomy Status: Chronic (5) Ileus following gastrointestinal surgery Status: Acute (6) Delirium Status: Acute (7) COPD (chronic obstructive pulmonary disease) Status: Chronic Qualifiers: COPD type: unspecified COPD Qualified Codes: J44.9 - Chronic obstructive pulmonary disease, unspecified (8) Anemia Status: Chronic Qualifiers: Anemia type: unspecified type Qualified Codes: D64.9 - Anemia, unspecified Clinical Quality Measures DVT/VTE Risk/Contraindication: Risk Factor Score Per Nursin RFS Level Per Nursing on Admit: 4+=Very High BARRON TAO DO Oct 20, 2018 12:53
[2018-10-20] MEDS: oxyCODONE/APAP 5/325MG (PERCOCET 5) TABLET PO PRN (17:54)
[2018-10-21] MEDS: oxyCODONE/APAP 5/325MG (PERCOCET 5) TABLET PO PRN ×5 (00:14→23:36)
[2018-10-21 04:00] VITALS: BP 129/68
[2018-10-21] MEDS: PANTOPRAZOLE 40 MG (PROTONIX) TAB PO SCH (05:13)
[2018-10-21 05:39] LABS: BASOPHILS % (AUTO) 0 % (0-10); EOSINOPHILS # (AUTO) 0.3 10^3/uL (0.0-0.3); EOSINOPHILS % (AUTO) 5 % (0-10); HEMATOCRIT 32 % (40-54); HEMOGLOBIN 10.7 G/DL (13.3-17.7); LYMPHOCYTES # (AUTO) 2.1 X 10^3 (1.0-4.0); LYMPHOCYTES % (AUTO) 30 % (12-44); MEAN CORPUSCULAR HEMOGLOBIN 29 PG (25-34); MEAN CORPUSCULAR HGB CONC 33 G/DL (32-36); MEAN CORPUSCULAR VOLUME 87 FL (80-99); MEAN PLATELET VOLUME 9.4 FL (7.4-10.4); MONOCYTES # (AUTO) 0.8 X 10^3 (0.0-1.0); MONOCYTES % (AUTO) 11 % (0-12); NEUTROPHILS # (AUTO) 3.7 X 10^3 (1.8-7.8); NEUTROPHILS % (AUTO) 54 % (42-75); PLATELET COUNT 230 10^3/uL (130-400); RED CELL DISTRIBUTION WIDTH 15.4 % (10.0-14.5); WHITE BLOOD COUNT 6.9 10^3/uL (4.3-11.0)
[2018-10-21 06:00] LABS: ALANINE AMINOTRANSFERASE 12 U/L (0-55); ALKALINE PHOSPHATASE 40 U/L (40-136); BILIRUBIN,TOTAL 0.4 MG/DL (0.1-1.0); BUN/CREATININE RATIO 19; CALCIUM 9.4 MG/DL (8.5-10.1); CARBON DIOXIDE 26 MMOL/L (21-32); CHLORIDE 107 MMOL/L (98-107); CREATININE SERUM 0.69 MG/DL (0.60-1.30); GFR ESTIMATED > 60; GLUCOSE 93 MG/DL (70-105); POTASSIUM 3.5 MMOL/L (3.6-5.0); SODIUM 143 MMOL/L (135-145); TOTAL PROTEIN 5.3 GM/DL (6.4-8.2)
[2018-10-21] MEDS: RT-ALBUTEROL SULF 2.5 MG/3 ML PRE-MIX VIAL INH SCH ×4 (06:39→19:34)
[2018-10-21] MEDS: RT-ADVAIR HFA 115/21 MCG PER PUFF IH SCH (06:41)
[2018-10-21 07:56] VITALS: BP 105/66
[2018-10-21] MEDS: FAMOTIDINE 20MG/2ML IV (PEPCID) IVP SCH (08:53)
[2018-10-21] MEDS: predniSONE 10 MG TAB PO SCH (08:53)
[2018-10-21] MEDS: ENOXAPARIN 30 MG/0.3 ML (LOVENOX) SYR SC SCH ×2 (08:54→20:55)
[2018-10-21] MEDS: OLMESARTAN 20 MG (BENICAR) TABLET PO SCH (08:54)
--- NOTE | 2018-10-21 08:58 | Progress Note ---
Subjective Date Seen by a Provider: Oct 21, 2018 Time Seen by a Provider: 09:20 Objective Exam Last Set of Vital Signs Vital Signs Date Time Temp Pulse Resp B/P (MAP) Pulse Ox O2 Delivery O2 Flow Rate FiO2 10/21/18 07:56 98.6 69 20 105/66 (79) 94 Room Air 10/20/18 07:01 21 10/19/18 16:00 2.00 Capillary Refill : Less Than 3 Seconds I&O Intake and Output 10/21/18 00:00 Intake Total 3120 ml Output Total 2070 ml Balance 1050 ml Intake Oral 1820 ml IV Total 1300 ml Output Urine Total 2050 ml Drainage Total 20 ml # Voids 4 Results Lab Laboratory Tests 10/21/18 05:15: White Blood Count 6.9, Red Blood Count 3.73L, Hemoglobin 10.7L, Hematocrit 32L, Mean Corpuscular Volume 87, Mean Corpuscular Hemoglobin 29, Mean Corpuscular Hemoglobin Concent 33, Red Cell Distribution Width 15.4H, Platelet Count 230, Mean Platelet Volume 9.4, Neutrophils (%) (Auto) 54, Lymphocytes (%) (Auto) 30, Monocytes (%) (Auto) 11, Eosinophils (%) (Auto) 5, Basophils (%) (Auto) 0, Neutrophils # (Auto) 3.7, Lymphocytes # (Auto) 2.1, Monocytes # (Auto) 0.8, Eosinophils # (Auto) 0.3, Basophils # (Auto) 0.0, Sodium Level 143, Potassium Level 3.5L, Chloride Level 107, Carbon Dioxide Level 26, Anion Gap 10, Blood Urea Nitrogen 13, Creatinine 0.69, Estimat Glomerular Filtration Rate > 60, BUN/ Creatinine Ratio 19, Glucose Level 93, Calcium Level 9.4, Corrected Calcium 10.2H, Total Bilirubin 0.4, Aspartate Amino Transf (AST/SGOT) 23, Alanine Aminotransferase (ALT/SGPT) 12, Alkaline Phosphatase 40, Total Protein 5.3L, Albumin 3.0L Assessment/Plan Assessment/Plan Assess & Plan/Chief Complaint 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 GUIDRY ON PULLING OF THE NG TUBE. HYPERTENSION - CURRENT HYPOTENSION - HOLD OLMESARTAN AT THIS TIME. 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 COPD - RESTART ADVAIR AND ALBUTEROL BREATHING TREATMENTS. THANKS FOR THE CONSULT, WILL FOLLOW THIS PATIENT Clinical Quality Measures DVT/VTE Risk/Contraindication: Risk Factor Score Per Nursin RFS Level Per Nursing on Admit: 4+=Very High JAMISON BILLY MD Oct 21, 2018 08:58
[2018-10-21] MEDS ORDERED: PROMETHAZINE INJ 25 MG/ML (PHENERGAN) AMP IVP PRN (10:30)
--- NOTE | 2018-10-21 10:33 | Physical Therapy Daily Note ---
PT Daily Note-Current Subjective Pt was in bed and agreed to PT. Reported that he already walked some this morning. Pain Numeric Pain Scale: 3 Location Body Site: Abdomen Mental Status Patient Orientation: Person, Place, Situation, Normal For Age Transfers Therapy Code Descriptions/Definitions Functional [place] Measure: 0=Not Assessed/NA 4=Minimal Assistance 1=Total Assistance 5=Supervision or Setup 2=Maximal Assistance 6=Modified [place] 3=Moderate Assistance 7=Complete [place] Therapy Quality Codes: 6 Independent with activity with or without an assistive device 5 Patient requires set up or clean up by helper. Patient completes activity by themselves 4 Supervision or touching assist (CGA). [place] provide cues , steadying assist 3 The helper provides less than half the effort to complete the activity 2 The helper provides more than half the effort to complete the activity 1 Dependent. The helper does all the effort to complete an activity 7 Patient refused to complete or attempt activity 9 The patient did not perform the activity before the current illness or injury 88 Not attempted due to Medical conditions or safety concerns Transfers (B, C, W/C) (FIM): 6 Scootin Rollin Supine to/from Sit: 6 Sit to/from Stand: 6 Weight Bearing Right Lower Extremity: Right Full Weight Bearing Left Lower Extremity: Left Full Weight Bearing Gait Training Gait (FIM): 6 Distance (FIM): 3=150 ft Distance: 800' Gait Level of Assist: 6 Gait Persons Needed: 1 Gait Assistive Device: FWW Assessment Current Status: Good Progress Pt was able to perform all bed mobility indep. Pt transfers to FWW indep. Pt able to amb with FWW 800' with mild increase in abdomen discomfort. Pt reports he took a pain pill so it should subside soon. Pt returned to room and has all needs met. PT instructed that pt is allowed to get up ab tanvir during the day with the FWW. PT will d/c pt from their services. PT Sap Project Manager Goals Sap Project Manager Goals PT Sap Project Manager Goals Time Frame: Oct 25, 2018 Transfers (B,C,W/C) (FIM): 7 Gait (FIM): 6 Gait distance (FIM): 3=150 ft PT Plan Problem List Problem List: Activity Tolerance Treatment/Plan Treatment Plan: Discontinue PT Treatment Plan: Bed Mobility, Education, Functional Activity Kim, Functional Strength, Gait, Safety, Therapeutic Exercise, Transfers Treatment Duration: Oct 25, 2018 Frequency: 6 times per week Estimated Hrs Per Day: .25 hour per day Patient and/or Family Agrees t: Yes Discharge Recommendations Equpiment Recommendations-D/C: Front Wheeled Walker Time/GCodes Time In: 943 Time Out: 953 Total Billed Treatment Time: 10 Total Billed Treatment 1 visit GT 10 min HAKAN BARRY PT Oct 21, 2018 10:33
[2018-10-21 12:28] VITALS: BP 134/79
--- NOTE | 2018-10-21 13:39 | NUR ---
Pt declines Communion today not feeling well.
[2018-10-21 16:21] VITALS: BP 125/78
--- NOTE | 2018-10-21 16:21 | Progress Note (SOAP) ---
Subjective Date Seen by a Provider: Oct 21, 2018 Time Seen by a Provider: 16:15 Subjective/Events-last exam doing well. pain controlled. tolerating low residue diet. ambulating well. Objective Exam Vital Signs Date Time Temp Pulse Resp B/P (MAP) Pulse Ox O2 Delivery O2 Flow Rate FiO2 10/21/18 14:51 93 Room Air 10/21/18 12:28 98.5 82 20 134/79 (97) 95 Room Air 10/21/18 11:00 91 Room Air 10/21/18 08:10 Room Air 10/21/18 07:56 98.6 69 20 105/66 (79) 94 Room Air 10/21/18 06:39 94 Room Air 10/21/18 04:00 97.8 68 18 129/68 (88) 95 Room Air 10/20/18 23:48 99.1 76 18 123/67 (85) 93 Room Air 10/20/18 20:50 Room Air 10/20/18 20:00 99.0 83 20 130/63 (85) 96 Room Air 10/20/18 18:32 97 Room Air I & O 10/21/18 07:00 Intake Total 3220 ml Output Total 1090 ml Balance 2130 ml Capillary Refill : Less Than 3 Seconds General Appearance: No Apparent Distress HEENT: PERRL/EOMI Neck: Full Range of Motion Respiratory: Chest Non Tender, Normal Breath Sounds Cardiovascular: Regular Rate, Rhythm Gastrointestinal: normal bowel sounds, soft, other (wounds clean/dry) Extremity: Normal Capillary Refill Neurologic/Psychiatric: Alert, Oriented x3 Skin: Normal Color Lymphatic: No Adenopathy Results Lab Laboratory Tests 10/21/18 05:15: White Blood Count 6.9, Red Blood Count 3.73L, Hemoglobin 10.7L, Hematocrit 32L, Mean Corpuscular Volume 87, Mean Corpuscular Hemoglobin 29, Mean Corpuscular Hemoglobin Concent 33, Red Cell Distribution Width 15.4H, Platelet Count 230, Mean Platelet Volume 9.4, Neutrophils (%) (Auto) 54, Lymphocytes (%) (Auto) 30, Monocytes (%) (Auto) 11, Eosinophils (%) (Auto) 5, Basophils (%) (Auto) 0, Neutrophils # (Auto) 3.7, Lymphocytes # (Auto) 2.1, Monocytes # (Auto) 0.8, Eosinophils # (Auto) 0.3, Basophils # (Auto) 0.0, Sodium Level 143, Potassium Level 3.5L, Chloride Level 107, Carbon Dioxide Level 26, Anion Gap 10, Blood Urea Nitrogen 13, Creatinine 0.69, Estimat Glomerular Filtration Rate > 60, BUN/ Creatinine Ratio 19, Glucose Level 93, Calcium Level 9.4, Corrected Calcium 10.2H, Total Bilirubin 0.4, Aspartate Amino Transf (AST/SGOT) 23, Alanine Aminotransferase (ALT/SGPT) 12, Alkaline Phosphatase 40, Total Protein 5.3L, Albumin 3.0L Assessment/Plan Assessment/Plan Assess & Plan/Chief Complaint s/p laparoscopic low anterior colorectal resection for complicated diverticulitis. doing well. tolerating diet. home when able. no heavy lifting/exertion 2 weeks. Clinical Quality Measures DVT/VTE Risk/Contraindication: Risk Factor Score Per Nursin RFS Level Per Nursing on Admit: 4+=Very High LYDIA GUIDRY MD Oct 21, 2018 16:21
[2018-10-21] MEDS ORDERED: HYDR-34 PO (16:32)
--- NOTE | 2018-10-21 16:36 | Discharge Inst-Surgical ---
D/C Lap Instructions-BREA New, Converted, or Re-Newed RX: RX on Chart Follow Up Appt in 1 week Activity as tolerated No driving for 24 hours No driving while on pain medications Incentive Spirometry use every 2 hours while awake Regular Diet Symptoms to Report: Fever over 101 degree F, Nausea/Vomiting Infection Signs and Symptoms to report: Increased redness, Foul odor of wound, Increased drainage Bathing instructions: May shower Operative Area Clean/Dry; Keep incision clean/dry If any problems/questions: Contact your physician or go to Emergency Room LYDIA GUIDRY MD Oct 21, 2018 16:36
[2018-10-21] MEDS: METOCLOPRAMIDE INJ 10 MG/2 ML (REGLAN) IVP SCH ×2 (18:38→23:36)
[2018-10-21 20:29] VITALS: BP 101/59
[2018-10-21 23:30] VITALS: BP 143/71
[2018-10-22 04:19] VITALS: BP 115/70
[2018-10-22] MEDS: PANTOPRAZOLE 40 MG (PROTONIX) TAB PO SCH (05:27)
[2018-10-22] MEDS: oxyCODONE/APAP 5/325MG (PERCOCET 5) TABLET PO PRN (05:27)
[2018-10-22] MEDS: METOCLOPRAMIDE INJ 10 MG/2 ML (REGLAN) IVP SCH (05:27)
[2018-10-22] MEDS: RT-ALBUTEROL SULF 2.5 MG/3 ML PRE-MIX VIAL INH SCH (07:05)
[2018-10-22 08:10] VITALS: BP 133/71
--- NOTE | 2018-10-22 08:56 | Progress Note ---
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 GUIDRY ON PULLING OF THE NG TUBE. HYPERTENSION - CURRENT HYPOTENSION - HOLD OLMESARTAN AT THIS TIME. 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 COPD - RESTART ADVAIR AND ALBUTEROL BREATHING TREATMENTS. THANKS FOR THE CONSULT, WILL FOLLOW THIS PATIENT Clinical Quality Measures DVT/VTE Risk/Contraindication: Risk Factor Score Per Nursin RFS Level Per Nursing on Admit: 4+=Very High JAMISON BILLY MD Oct 22, 2018 08:56
[2018-10-22] MEDS ORDERED: METO5TAB75 PO (09:04)
[2018-10-22] MEDS: OLMESARTAN 20 MG (BENICAR) TABLET PO SCH (09:47)
[2018-10-22] MEDS: ENOXAPARIN 30 MG/0.3 ML (LOVENOX) SYR SC SCH (09:47)
[2018-10-22] MEDS: predniSONE 10 MG TAB PO SCH (09:47)
--- NOTE | 2018-10-23 04:10 | DISCHARGE SUMMARY ---
DATE OF SERVICE: ATTENDING PRIMARY CARE PHYSICIAN: Beverly Hussein MD ADMISSION DIAGNOSES: Recurrent symptomatic complicated sigmoid diverticulitis. DISCHARGE DIAGNOSES: Recurrent symptomatic complicated sigmoid diverticulitis. ADDITIONAL DIAGNOSES: Adrenal insufficiency, autoimmune connective tissue disorder, history of atrial fibrillation, history of prostate cancer, asthma, sleep apnea, nephrolithiasis. PRINCIPAL PROCEDURE: Laparoscopic low anterior rectosigmoid resection and anastomosis. A left subclavian central venous catheter placement. No additional procedures. No complications. DISPOSITION: Home in stable condition. HOSPITAL COURSE: The patient is a 78-year-old male who has had multiple episodes of pain in the left lower abdominal quadrant. A significant sigmoid diverticulitis was identified with very small contained bubbles of air, which was consistent with contained microperforation. The patient was stable and treated conservatively and eventually did well and was tolerating a diet. After further questioning, he had reported that 10 years previous he had had few other episodes of pain requiring admission and IV antibiotics. He also had had a colonoscopy years previous and did remember diverticulosis as well. After this episode, he did have another episode of pain approximately one week later and a repeat CT scan was performed, which did show the diverticulitis present as well as a pericolonic abscess requiring interventional radiology for drain placement. He did well again with conservative management and was followed in the office. He had a minimal drainage and the drain was eventually removed and he was continued on oral antibiotics. Eventually, he did undergo a colonoscopy, which did show this severe sigmoid and descending colonic diverticulosis; however, no signs of acute inflammation as well as no neoplasms. PAST MEDICAL HISTORY: Autoimmune connective tissue disorder, adrenal insufficiency, history of atrial fibrillation, history of prostate cancer, asthma, sleep apnea, nephrolithiasis. PAST SURGICAL HISTORY: Robotic assisted prostatectomy, cardiac ablation, open cholecystectomy. ALLERGIES: No known drug allergies. MEDICATIONS: Albuterol 2 puffs q.4h. p.r.n., fluticasone 1 puff daily, hydrocodone p.r.n., olmesartan 20 mg daily, prednisone 10 mg daily, tamsulosin 0.4 mg daily. SOCIAL HISTORY: Negative smoke. Rare alcohol. FAMILY HISTORY: Father lung cancer. Grandparent with stroke. The patient underwent a laparoscopic low anterior rectosigmoid colonic resection as well as a left subclavian central venous catheter placement on 10/17/2018. The patient did well and was sent to the Intensive Care Unit overnight. His vital signs are stable. His pain was also under control and was ambulating with assistance. He was transferred on postoperative day #1 to the general surgical floor. On the floor he continued to improve on a daily basis. He did gain bowel sounds as well as bowel function with flatus. His nasogastric tube was removed as well as has a Valadez catheter and he was also ambulating better on a daily basis. He was started on clear liquids and advanced to mechanical soft diet without any difficulty. He continued to have significant amounts of flatus as well. His vital signs remained stable and his labs did as well. He was discharged home on 10/22/2018. HOME GOING INSTRUCTIONS: Low residue diet for the next 6 weeks. Resume all previous home medications including prednisone, Lortab p.r.n. No activity restrictions; however, no heavy lifting or exertion for the next 2 weeks and then increase activity as tolerated. He is to follow up in the office approximately 1 week for drain removal. Job ID: [id number] DocumentID: [id number] Dictated Date: 10/22/2018 12:58:54 Youth Services Specialist Date: 10/23/2018 04:10:01 Dictated By: LYDIA GUIDRY MD
== END 2018-10-22 11:10 | disposition home or self-care (01) | DRG 330 ==
LOC: 4TH 10:23 → SURG 10:24 → ICU 17:07 → 4TH 10-18 11:31
PROVIDERS: ADMIT Surgery; ATTEND Surgery
PROC: 0DTN4ZZ Resection of Sigmoid Colon, Percutaneous Endoscopic Approach (ICD-10-PCS; principal; 2018-10-17 11:55)
PROC: 0DBP4ZZ Excision of Rectum, Percutaneous Endoscopic Approach (ICD-10-PCS; 2018-10-17 11:55)
PROC: 0T778DZ Dilation of Left Ureter with Intraluminal Device, Via Natural or Artificial Opening Endoscopic (ICD-10-PCS; 2018-10-17 11:55)
DX: K57.32 Diverticulitis of large intestine without perforation or abscess without bleeding (principal); E27.40 Unspecified adrenocortical insufficiency; M35.3 Polymyalgia rheumatica; R41.0 Disorientation, unspecified; I48.91 Unspecified atrial fibrillation; J44.9 Chronic obstructive pulmonary disease, unspecified; J45.909 Unspecified asthma, uncomplicated; G47.33 Obstructive sleep apnea (adult) (pediatric); I10 Essential (primary) hypertension; D64.9 Anemia, unspecified; M19.91 Primary osteoarthritis, unspecified site; M54.9 Dorsalgia, unspecified; Z85.46 Personal history of malignant neoplasm of prostate; Z85.51 Personal history of malignant neoplasm of bladder; Z85.828 Personal history of other malignant neoplasm of skin; Z79.52 Long term (current) use of systemic steroids; Z87.442 Personal history of urinary calculi; Z90.79 Acquired absence of other genital organ(s)
CPT/HCPCS: 36415; 71045; 80048; 80053; 85025; 85027; 86850; 86900; 86901; 87081; 88307; 94640; 94664; 94760

== ENCOUNTER 2019-09-19 13:26 | Outpatient (RCR) | payer MEDICARE ==
[~2019-09-19 13:26] MED LIST changes: +HYDR-34 PO; +METO5TAB75 PO
== END 2019-09-19 14:00 | disposition home or self-care (01) ==
PROVIDERS: ATTEND Family Medicine
DX: M25.561 Pain in right knee (principal); R29.898 Other symptoms and signs involving the musculoskeletal system

== ENCOUNTER 2019-11-10 10:32 | Outpatient (RCR) | payer MEDICARE ==
[~2019-11-10 10:32] MED LIST changes: +ACHYD1T PO; -HYDR-3820 PO; -MORP-33 PO; +MORP-68 PO; -TAMS0.4C98 PO; +TMSL.4C PO; +TRM50T PO
== END 2019-12-01 14:41 | disposition home or self-care (01) ==
PROVIDERS: ATTEND Orthopaedic Surgery
DX: Z47.1 Aftercare following joint replacement surgery (principal); Z96.651 Presence of right artificial knee joint

== ENCOUNTER 2020-08-15 08:52 | Emergency (ER) | payer MEDICARE ==
[~2020-08-15] VITALS: Ht 190 cm; Wt 87.0 kg
[~2020-08-15 08:52] MED LIST changes: -HYDR-3876 PO; +HYDR-3920 PO
[2020-08-15] MEDS ORDERED: ONDANSETRON 4 MG/2 ML (SDV) Z0FRAN ONE (09:10)
[2020-08-15] MEDS ORDERED: ONDANSETRON 4 MG/2 ML (SDV) Z0FRAN IVP ONE (10:00)
--- NOTE | 2020-08-15 10:17 | ED GI ---
General Chief Complaint: Abdominal/GI Problems Stated Complaint: VOMITING Nursing Triage Note: PT CO OF VOMITING AND NAUSEA FOR 2 DAYS, DENIES FEVER, ABD PAIN OR DIARRHEA Sepsis Screen: No Definite Risk Source of Information: Patient Exam Limitations: No Limitations History of Present Illness Date Seen by Provider: Aug 15, 2020 Time Seen by Provider: 09:47 Initial Comments Patient presents ER by private conveyance with chief complaint of nausea since yesterday evening. He would like something for his nausea take at home. He says he is not having any pain or abdominal discomfort. He has had gallbladder, appendix and a small length of his colon removed by Dr. Guidry in the past but no other abdominal surgeries. No chest pain or history of coronary disease lung disease or kidney disease. No dysuria fever chills body aches or sick contacts. Past bowel movement this morning which was normal for him. No diarrhea or constipation. He takes MiraLAX and fiber daily to stay regular. Allergies and Home Medications Allergies Coded Allergies: No Known Drug Allergies (Verified , 08/14/18) Home Medications Albuterol Sulfate 1 Puff Puff, 2 PUFF INH Q4H PRN for SHORTNESS OF BREATH, (Reported) Fluticasone/Salmeterol 1 Each Blst.w.dev, 1 PUFF IH DAILY, (Reported) Hydrocodone Bit/Acetaminophen 1 Each Tablet, 1 TAB PO QID PRN for PAIN-MILD, (Reported) Hydrocodone Bit/Acetaminophen 1 Ea Tablet, 1 EACH PO Q4H PRN for PAIN-MODERATE Prescribed by: LYDIA GUIDRY on 10/21/18 1632 Metoclopramide HCl 5 Mg Tablet, 5 MG PO QIDACHS Prescribed by: JAMISON BILLY on 10/22/18 0904 Olmesartan Medoxomil 20 Mg Tablet, 20 MG PO DAILY, (Reported) Prednisone 10 Mg Tab, 10 MG PO DAILY, (Reported) Patient Home Medication List Home Medication List Reviewed: Yes Review of Systems Review of Systems Constitutional: No chills, No fever, No malaise EENTM: No Blurred Vision, No Double Vision Respiratory: Denies Cough Cardiovascular: Denies Chest Pain, Denies Lightheadedness, Denies Palpitations, Denies Syncope Gastrointestinal: See HPI; Denies Abdominal Pain, Denies Constipated, Denies Diarrhea; Nausea; Denies Poor Fluid Intake; Vomiting Genitourinary: Denies Burning, Denies Discharge Musculoskeletal: back pain (chronic); No joint pain All Other Systems Reviewed Negative Unless Noted: Yes Past Iaczquz-Dhyrpo-Ybxcmn Hx Patient Social History Alcohol Use: Denies Use Recreational Drug Use: No Smoking Status: Never a Smoker 2nd Hand Smoke Exposure: No Recent Foreign Travel: No Contact w/Someone Who Travel: No Recent Infectious Disease Expo: No Recent Hopitalizations: Yes (OUT 08/10/18) Immunizations Up To Date Tetanus Booster (TDap): Unknown PED Vaccines UTD: Yes Date of Pneumonia Vaccine: Jul 15, 2016 Date of Influenza Vaccine: Jul 29, 2018 Seasonal Allergies Seasonal Allergies: Yes Past Medical History Surgeries: Yes (ROBOTIC PROSTATECTOMY (MRSA POST-OP 2009), heart ablation) Gallbladder Respiratory: Yes (ASTHMA) Asthma, Sleep Apnea Currently Using CPAP: Yes Currently Using BIPAP: No Cardiac: Yes (HX A FLUTTER-HEART ABALATION SEVERAL YRS AGO)) Hypertension Neurological: No Reproductive Disorders: No Sexually Transmitted Disease: No HIV/AIDS: No Genitourinary: Yes Prostate Problems, Kidney Stones Gastrointestinal: Yes Diverticulosis 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, Chronic Back Pain Endocrine: No HEENT: No Loss of Vision: Denies Hearing Impairment: Denies Cancer: Yes Bladder, Prostate, Skin Did You Recieve Any Treatments: Yes What Type of Treatment Did You: Surgical Intervention Psychosocial: No Integumentary: No Blood Disorders: No Adverse Reaction/Blood Tranf: No Family Medical History Dementia 19 MOTHER FH: lung cancer 19 FATHER Cancer, Hypertension, Lung Disease, Other Conditions/Hx Physical Exam Vital Signs Vital Signs - First Documented 08/15/20 09:00 Temp 37.0 Pulse 73 Resp 20 B/P (MAP) 154/102 (119) Pulse Ox 97 Capillary Refill : Less Than 3 Seconds Height/Weight/BMI Height: 6'3.00" Weight: 210lbs. 0.0oz. [id number]; 24.00 BMI Method:Stated General Appearance: WD/WN, no apparent distress HEENT: PERRL/EOMI, pharynx normal Neck: full range of motion, supple, normal inspection Respiratory: lungs clear, normal breath sounds, no respiratory distress, no accessory muscle use Cardiovascular: normal peripheral pulses, regular rate, rhythm Peripheral Pulses: 2+ Radial Pulses (R), 2+ Radial Pulses (L) Gastrointestinal: normal bowel sounds, non tender, soft Extremities: non-tender, normal inspection, normal capillary refill Neurologic/Psychiatric: alert, normal mood/affect, oriented x 3 Skin: normal color, warm/dry Progress/Results/Core Measures Results/Orders Lab Results Laboratory Tests Test 08/15/20 09:07 08/15/20 10:00 Range/Units White Blood Count 7.9 4.3-11.0 10^3/uL Red Blood Count 4.85 4.30-5.52 10^6/uL Hemoglobin 14.1 13.3-17.7 g/dL Hematocrit 43 40-54 % Mean Corpuscular Volume 88 80-99 fL Mean Corpuscular Hemoglobin 29 25-34 pg Mean Corpuscular Hemoglobin Concent 33 32-36 g/dL Red Cell Distribution Width 13.9 10.0-14.5 % Platelet Count 169 130-400 10^3/uL Mean Platelet Volume 10.7 9.0-12.2 fL Immature Granulocyte % (Auto) 0 % Neutrophils (%) (Auto) 64 42-75 % Lymphocytes (%) (Auto) 19 12-44 % Monocytes (%) (Auto) 11 0-12 % Eosinophils (%) (Auto) 5 0-10 % Basophils (%) (Auto) 1 0-10 % Neutrophils # (Auto) 5.1 1.8-7.8 10^3/uL Lymphocytes # (Auto) 1.5 1.0-4.0 10^3/uL Monocytes # (Auto) 0.9 0.0-1.0 10^3/uL Eosinophils # (Auto) 0.4 H 0.0-0.3 10^3/uL Basophils # (Auto) 0.1 0.0-0.1 10^3/uL Immature Granulocyte # (Auto) 0.0 0.0-0.1 10^3/uL Sodium Level 138 135-145 MMOL/L Potassium Level 3.7 3.6-5.0 MMOL/L Chloride Level 100 98-107 MMOL/L Carbon Dioxide Level 23 21-32 MMOL/L Anion Gap 15 H 5-14 MMOL/L Blood Urea Nitrogen 15 7-18 MG/DL Creatinine 0.73 0.60-1.30 MG/DL Estimat Glomerular Filtration Rate > 60 BUN/Creatinine Ratio 21 Glucose Level 101 70-105 MG/DL Calcium Level 10.3 H 8.5-10.1 MG/DL Corrected Calcium 10.4 H 8.5-10.1 MG/DL Total Bilirubin 0.9 0.1-1.0 MG/DL Aspartate Amino Transf (AST/SGOT) 24 5-34 U/L Alanine Aminotransferase (ALT/SGPT) 17 0-55 U/L Alkaline Phosphatase 39 L 40-136 U/L Total Protein 6.8 6.4-8.2 GM/DL Albumin 3.9 3.2-4.5 GM/DL Urine Color YELLOW Urine Clarity CLEAR Urine pH 7.5 5-9 Urine Specific [place] 1.010 L 1.016-1.022 Urine Protein NEGATIVE NEGATIVE Urine Glucose (UA) NEGATIVE NEGATIVE Urine Ketones NEGATIVE NEGATIVE Urine Nitrite NEGATIVE NEGATIVE Urine Bilirubin NEGATIVE NEGATIVE Urine Urobilinogen 0.2 < = 1.0 MG/DL Urine Leukocyte Esterase NEGATIVE NEGATIVE Urine RBC (Auto) NEGATIVE NEGATIVE Urine RBC NONE /HPF Urine WBC NONE /HPF Urine Squamous Epithelial Cells NONE /HPF Urine Crystals NONE /LPF Urine Bacteria NEGATIVE /HPF Urine Casts NONE /LPF Urine Mucus NEGATIVE /LPF Urine Culture Indicated NO My Orders Orders - HERMILA GARDUNO Ondansetron Injection (Zofran Injectio (08/15/20 09:10) Ondansetron Injection (Zofran Injectio (08/15/20 10:00) Cbc With Automated Diff (08/15/20 10:13) Comprehensive Metabolic Panel (08/15/20 10:13) Ua Culture If Indicated (08/15/20 10:13) Medications Given in ED Current Medications Medications Dose Ordered Sig/Renae Route Start Time Stop Time Status Last Admin Dose Admin Ondansetron HCl 4 mg STK-MED ONCE .ROUTE 08/15/20 09:10 08/15/20 09:12 DC 08/15/20 09:15 8 MG Vital Signs/I&O 08/15/20 09:00 Temp 37.0 Pulse 73 Resp 20 B/P (MAP) 154/102 (119) Pulse Ox 97 Blood Pressure Mean: 119 Progress Progress Note : Time: 10:16 Progress Note We gave him 8 of Zofran and his symptoms went away. He's not very eager for much of a workup but did agree to do some basic labs and urine. He does not appear to be clinically dehydrated. He does not probably need help with IV fluids at this time. Vital signs are acceptable. Departure Impression Primary Impression: Gastroenteritis and colitis, viral Disposition: 01 HOME, SELF-CARE Condition: Improved Departure-Patient Inst. Decision time for Depature: 10:41 Patient Instructions: Viral Gastroenteritis, Adult (DC) Add. Discharge Instructions: Ondansetron one tablet every 6 hours as necessary for nausea and/or vomiting. Drink lots of fluids. Return to the ER if you have new or worrisome symptoms such as intractable nausea, chest pain, shortness of air or fever. Follow-up with your doctor if your symptoms do not improve in the next 3 days. All discharge instructions reviewed with patient and/or family. Voiced understanding. Scripts Ondansetron (Ondansetron Odt) 4 Mg Tab.rapdis 4 MG PO Q6H PRN for NAUSEA/VOMITING, #15 TAB 0 Refills Prov: HERMILA GARDUNO 08/15/20 HERMILA GARDUNO Aug 15, 2020 10:17
[2020-08-15 10:19] LABS: BASOPHILS # (AUTO) 0.1 10^3/uL (0.0-0.1); BASOPHILS % (AUTO) 1 % (0-10); EOSINOPHILS # (AUTO) 0.4 10^3/uL (0.0-0.3); EOSINOPHILS % (AUTO) 5 % (0-10); HEMATOCRIT 43 % (40-54); HEMOGLOBIN 14.1 g/dL (13.3-17.7); LYMPHOCYTES # (AUTO) 1.5 10^3/uL (1.0-4.0); LYMPHOCYTES % (AUTO) 19 % (12-44); MEAN CORPUSCULAR HEMOGLOBIN 29 pg (25-34); MEAN CORPUSCULAR HGB CONC 33 g/dL (32-36); MEAN CORPUSCULAR VOLUME 88 fL (80-99); MEAN PLATELET VOLUME 10.7 fL (9.0-12.2); MONOCYTES # (AUTO) 0.9 10^3/uL (0.0-1.0); MONOCYTES % (AUTO) 11 % (0-12); NEUTROPHILS # (AUTO) 5.1 10^3/uL (1.8-7.8); NEUTROPHILS % (AUTO) 64 % (42-75); PLATELET COUNT 169 10^3/uL (130-400); WHITE BLOOD COUNT 7.9 10^3/uL (4.3-11.0)
[2020-08-15 10:20] LABS: BILIRUBIN,URINE NEGATIVE (NEGATIVE); CLARITY,URINE CLEAR; COLOR,URINE YELLOW; GLUCOSE, URINE (UA) NEGATIVE (NEGATIVE); KETONES,URINE NEGATIVE (NEGATIVE); LEUKOCYTE ESTERASE ,URINE NEGATIVE (NEGATIVE); NITRITE,URINE NEGATIVE (NEGATIVE); PH,URINE 7.5 (5-9); PROTEIN,URINE NEGATIVE (NEGATIVE)
[2020-08-15 10:23] LABS: ALBUMIN 3.9 GM/DL (3.2-4.5); CHLORIDE 100 MMOL/L (98-107)
[2020-08-15 10:24] LABS: POTASSIUM 3.7 MMOL/L (3.6-5.0); SODIUM 138 MMOL/L (135-145)
[2020-08-15 10:25] LABS: CALCIUM 10.3 MG/DL (8.5-10.1)
[2020-08-15 10:26] LABS: GLUCOSE 101 MG/DL (70-105); TOTAL PROTEIN 6.8 GM/DL (6.4-8.2)
[2020-08-15 10:27] LABS: CARBON DIOXIDE 23 MMOL/L (21-32)
[2020-08-15 10:28] LABS: BACTERIA,URINE NEGATIVE /HPF
[2020-08-15 10:28] LABS: BILIRUBIN,TOTAL 0.9 MG/DL (0.1-1.0)
[2020-08-15 10:29] LABS: ALKALINE PHOSPHATASE 39 U/L (40-136)
[2020-08-15 10:30] LABS: CREATININE SERUM 0.73 MG/DL (0.60-1.30); GFR ESTIMATED > 60
[2020-08-15 10:31] LABS: BUN/CREATININE RATIO 21
[2020-08-15 10:32] LABS: ALANINE AMINOTRANSFERASE 17 U/L (0-55)
[2020-08-15] MEDS ORDERED: ONDA4TAB11 PO (10:43)
[2020-08-15 10:47] VITALS: BP 132/88
== END 2020-08-15 11:10 | disposition home or self-care (01) ==
LOC: EDUNIT# 08:52 → ER 08:53
DX: K52.9 Noninfective gastroenteritis and colitis, unspecified (principal); G89.29 Other chronic pain; M54.9 Dorsalgia, unspecified; J45.909 Unspecified asthma, uncomplicated; I10 Essential (primary) hypertension; Z80.1 Family history of malignant neoplasm of trachea, bronchus and lung; Z85.51 Personal history of malignant neoplasm of bladder; Z85.828 Personal history of other malignant neoplasm of skin; Z85.46 Personal history of malignant neoplasm of prostate; Z79.52 Long term (current) use of systemic steroids; Z79.891 Long term (current) use of opiate analgesic
CPT/HCPCS: 36415; 80053; 81000; 85025

== ENCOUNTER → 2021-08-04 | Outpatient (CLI) | payer MEDICARE ==
[~2021-08-04] MED LIST changes: +ONDA4TAB11 PO
== END ==
LOC: EDSEX 06:26 → LABNPT 06:26
PROVIDERS: ATTEND Anesthesiology
DX: Z01.818 Encounter for other preprocedural examination (principal); Z20.822 Contact with and (suspected) exposure to COVID-19
CPT/HCPCS: 87635

== ENCOUNTER → 2021-10-12 | Outpatient (CLI) | payer MEDICARE | LOC: LABNPT 08:54 | PROVIDERS: ATTEND Family Medicine | DX: U07.1 COVID-19 (principal) | CPT/HCPCS: 87635; 87804 ==

== ENCOUNTER 2022-07-07 10:57 | Emergency (ER) | payer MEDICARE ==
[~2022-07-07] VITALS: Ht 180 cm; Wt 95.0 kg
[2022-07-07] MEDS ORDERED: ACETAMINOPHEN 500 MG TAB (TYLENOL) PO ONE (11:15)
--- NOTE | 2022-07-07 11:21 | ED General ---
General Chief Complaint: General Problems/Pain Stated Complaint: SOA - BODY ACHES - L HAND/ARM NUMB Nursing Triage Note: pt states he has been feeling bad for about a week or longer. states back pain and abdominal pain/possible hernia. states pt has been getting very weak and hardly able to walk Source of Information: Patient Exam Limitations: No Limitations History of Present Illness Date Seen by Provider: Jul 07, 2022 Time Seen by Provider: 11:18 Initial Comments This is an 82-year-old male who presented the ER via POV with for complaints of not feeling well for the past week. He has a history of chronic back pain and was recently transitioned from Oxycodone 90 mg daily to Morphine pain pump placed by [facility]. Has a history of squamous cell carcinoma and had several areas burned off his face yesterday with Dr. Garza office. Spouse also states he has a history of bladder and prostate cancer, currently in remission. Has headache, left neck pain that radiates into his left arm, and generalized weakness. Also has had intermittent abdominal pain, has history of Diverticulitis. He is COVID vaccinated with boosters. No known fever, does have chills and body aches. No chest pain, cough, nausea, vomiting, diarrhea, dark/tarry, or blood stool. Allergies and Home Medications Allergies Coded Allergies: No Known Drug Allergies (Verified , 08/14/18) Patient Home Medication List Home Medication List Reviewed: Yes Albuterol Sulfate (Proair Hfa) 1 Puff Puff, 2 PUFF INH Q4H PRN for SHORTNESS OF BREATH, (Reported) Entered as Reported by: SHERRY JONES on 12/12/16 0928 Fluticasone/Salmeterol (Advair 250-50 Diskus) 1 Each Blst.w.dev, 1 PUFF IH DAILY, (Reported) Entered as Reported by: SHERRY JONES on 08/07/18 1522 Hydrocodone Bit/Acetaminophen (HYDROcodone/APAP 10/325 TABLET) 1 Each Tablet, 1 TAB PO QID PRN for PAIN-MILD, (Reported) Entered as Reported by: JESSICA CHURCH on 10/03/18 1104 Hydrocodone Bit/Acetaminophen (Lortab 7.5 Mg Tablet) 1 Ea Tablet, 1 EACH PO Q4H PRN for PAIN-MODERATE Prescribed by: LYDIA GUIDRY on 10/21/18 1632 Metoclopramide HCl (Reglan) 5 Mg Tablet, 5 MG PO QIDACHS Prescribed by: JAMISON BILLY on 10/22/18 0904 Olmesartan Medoxomil (Olmesartan Medoxomil) 20 Mg Tablet, 20 MG PO DAILY, (Reported) Entered as Reported by: SHERRY JONES on 08/07/18 1504 Ondansetron (Ondansetron Odt) 4 Mg Tab.rapdis, 4 MG PO Q6H PRN for NAUSEA/VOMITING Prescribed by: HERMILA GARDUNO on 08/15/20 1043 Prednisone (Prednisone) 10 Mg Tab, 10 MG PO DAILY, (Reported) Entered as Reported by: SHERRY JONES on 08/07/18 1504 Review of Systems Review of Systems Constitutional: see HPI Past Qafqund-Nlsmfk-Ioaphw Hx Patient Social History Tobacco Use?: No Substance use?: No Alcohol Use?: No Immunizations Up To Date Tetanus Booster (TDap): Unknown PED Vaccines UTD: Yes Seasonal Allergies Seasonal Allergies: Yes Past Medical History Surgeries: Yes (ROBOTIC PROSTATECTOMY (MRSA POST-OP 2009), heart ablation) Gallbladder Respiratory: Yes (ASTHMA) Asthma, Sleep Apnea Currently Using CPAP: Yes Currently Using BIPAP: No Cardiac: Yes (HX A FLUTTER-HEART ABALATION SEVERAL YRS AGO)) Hypertension Neurological: No Reproductive Disorders: No Sexually Transmitted Disease: No HIV/AIDS: No Genitourinary: Yes Prostate Problems, Kidney Stones Gastrointestinal: Yes Diverticulosis 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, Chronic Back Pain Endocrine: No HEENT: No Loss of Vision: Denies Hearing Impairment: Denies Cancer: Yes Bladder, Prostate, Skin Did You Recieve Any Treatments: Yes What Type of Treatment Did You: Surgical Intervention Psychosocial: No Integumentary: No Blood Disorders: No Adverse Reaction/Blood Tranf: No Family Medical History Dementia 19 MOTHER FH: lung cancer 19 FATHER Cancer, Hypertension, Lung Disease, Other Conditions/Hx Physical Exam Vital Signs Vital Signs - First Documented 07/07/22 11:03 Temp 36.2 Pulse 64 Resp 19 B/P (MAP) 162/87 (112) Pulse Ox 97 O2 Delivery Room Air Capillary Refill : Height, Weight, BMI Height: 6'3.00" Weight: 210lbs. 0.0oz. 95.881196lg; 29.00 BMI Method:Stated General Appearance: No Apparent Distress Eyes: Bilateral Eye Normal Inspection, Bilateral Eye PERRL, Bilateral Eye EOMI HEENT: PERRL/EOMI, Normal ENT Inspection, Pharynx Normal, Moist Mucous Membranes Neck: Full Range of Motion, Normal Inspection, Tender Lateral (left ) Respiratory: Lungs Clear, Normal Breath Sounds, No Accessory Muscle Use, No Respiratory Distress Cardiovascular: Regular Rate, Rhythm, No Edema, No Gallop Gastrointestinal: Normal Bowel Sounds, Non Tender, Soft Back: Normal Inspection, No Vertebral Tenderness Extremity: Normal Capillary Refill, Normal Inspection Neurologic/Psychiatric: Alert, Oriented x3, No Motor/Sensory Deficits, Normal Mood/Affect, lean facilitator II-XII Norm as Tested (grossly intact ) Skin: Normal Color, Warm/Dry Focused Exam Lactate Level 07/07/22 11:30: Lactic Acid Level 0.73 Lactic Acid Level Laboratory Tests Test 07/07/22 11:30 Lactic Acid Level 0.73 MMOL/L (0.50-2.00) Progress/Results/Core Measures Suspected Sepsis SIRS Temperature: Pulse: 64 Respiratory Rate: 19 Laboratory Tests 07/07/22 11:09: White Blood Count 6.8 Blood Pressure 162 /87 Mean: 112 07/07/22 11:30: Lactic Acid Level 0.73 Laboratory Tests 07/07/22 11:09: Creatinine 0.79, Platelet Count 174, Total Bilirubin 0.6 Results/Orders Lab Results Laboratory Tests Test 07/07/22 11:09 07/07/22 11:19 07/07/22 11:30 Range/Units White Blood Count 6.8 4.3-11.0 10^3/uL Red Blood Count 4.35 4.30-5.52 10^6/uL Hemoglobin 12.5 L 13.3-17.7 g/dL Hematocrit 39 L 40-54 % Mean Corpuscular Volume 89 80-99 fL Mean Corpuscular Hemoglobin 29 25-34 pg Mean Corpuscular Hemoglobin Concent 32 32-36 g/dL Red Cell Distribution Width 13.9 10.0-14.5 % Platelet Count 174 130-400 10^3/uL Mean Platelet Volume 9.2 9.0-12.2 fL Immature Granulocyte % (Auto) 1 % Neutrophils (%) (Auto) 51 42-75 % Lymphocytes (%) (Auto) 28 12-44 % Monocytes (%) (Auto) 9 0-12 % Eosinophils (%) (Auto) 11 H 0-10 % Basophils (%) (Auto) 1 0-10 % Neutrophils # (Auto) 3.5 1.8-7.8 10^3/uL Lymphocytes # (Auto) 1.9 1.0-4.0 10^3/uL Monocytes # (Auto) 0.6 0.0-1.0 10^3/uL Eosinophils # (Auto) 0.8 H 0.0-0.3 10^3/uL Basophils # (Auto) 0.0 0.0-0.1 10^3/uL Immature Granulocyte # (Auto) 0.1 0.0-0.1 10^3/uL Sodium Level 138 135-145 MMOL/L Potassium Level 4.2 3.6-5.0 MMOL/L Chloride Level 103 98-107 MMOL/L Carbon Dioxide Level 29 21-32 MMOL/L Anion Gap 6 5-14 MMOL/L Blood Urea Nitrogen 17 7-18 MG/DL Creatinine 0.79 0.60-1.30 MG/DL Estimat Glomerular Filtration Rate 89 BUN/Creatinine Ratio 22 Glucose Level 86 70-105 MG/DL Calcium Level 9.5 8.5-10.1 MG/DL Corrected Calcium 9.9 8.5-10.1 MG/DL Total Bilirubin 0.6 0.1-1.0 MG/DL Aspartate Amino Transf (AST/SGOT) 19 5-34 U/L Alanine Aminotransferase (ALT/SGPT) 12 0-55 U/L Alkaline Phosphatase 40 40-136 U/L B-Type Natriuretic Peptide 52.7 <100.0 PG/ML Total Protein 6.3 L 6.4-8.2 GM/DL Albumin 3.5 3.2-4.5 GM/DL Procalcitonin 0.03 <0.10 NG/ML Influenza Type A (RT-PCR) Not Detected Not Detecte Influenza Type B (RT-PCR) Not Detected Not Detecte SARS-CoV-2 RNA (RT-PCR) Detected H Not Detecte Lactic Acid Level 0.73 0.50-2.00 MMOL/L My Orders Orders - KARISSA CALVILLO [employer] Blood Culture (07/07/22 11:14) Chest 1 View, Ap/Pa Only (07/07/22 11:14) Ed Iv/Invasive Line Start (07/07/22 11:14) Ekg Tracing (07/07/22 11:14) Lactic Acid Analyzer (07/07/22 11:14) Cbc With Automated Diff (07/07/22 11:14) Comprehensive Metabolic Panel (07/07/22 11:14) Covid 19 Inhouse Test (07/07/22 11:14) Influenza A And B By Pcr (07/07/22 11:14) Ct Abdomen/Pelvis W (07/07/22 11:14) Acetaminophen Tablet (Tylenol Tablet) (07/07/22 11:15) Bnp Arenac (07/07/22 11:14) Procalcitonin (Pct) (07/07/22 11:14) Ct Head/Cervical Spine Wo (07/07/22 11:21) Iohexol Injection (Omnipaque 350 Mg/Ml 1 (07/07/22 12:00) Received Contrast (Hold Metformin- Contr (07/07/22 12:00) Sodium Chloride Flush (Catheter Flush Sy (07/07/22 12:00) Ns (Ivpb) (Sodium Chloride 0.9% Ivpb Bag (07/07/22 12:00) Bebtelovimab (Bebtelovimab) (07/07/22 14:15) Epinephrine 1 Mg Injection (Adrenalin I (07/07/22 14:15) Diphenhydramine Injection (Benadryl Inje (07/07/22 14:15) Ondansetron Injection (Zofran Injectio (07/07/22 14:00) Acetaminophen Tablet (Tylenol Tablet) (07/07/22 14:00) Orphenadrine Inj (Ed Only) (Norflex Inje (07/07/22 15:00) Medications Given in ED Current Medications Medications Dose Ordered Sig/Renae Route Start Time Stop Time Status Last Admin Dose Admin Bebtelovimab 175 mg ONCE ONCE IV 07/07/22 14:15 07/07/22 14:16 DC 07/07/22 15:13 175 MG Orphenadrine Citrate 30 mg ONCE ONCE IVP 07/07/22 15:00 07/07/22 15:01 DC 07/07/22 14:50 30 MG Vital Signs/I&O 07/07/22 07/07/22 11:03 16:24 Temp 36.2 36.2 Pulse 64 46 Resp 19 19 B/P (MAP) 162/87 (112) 135/68 Pulse Ox 97 98 O2 Delivery Room Air Room Air Capillary Refill : Blood Pressure Mean: 112 Progress Note : Progress Note Discussed incidental infrarenal aneurysm findings with Dr. Torres, patient to schedule follow up in office. He is COVID positive and meets all inclusion criteria and is considered high risk based on age, cardiac, and cancer history. Reviewed alternative treatments for COVID, including use of Paxlovid. Pt. Was provided with "Fact sheet for patients and caregivers" and informed the b ebtelovimab is an unapproved drug authorized for use under EUA for the treatment of mild to moderate COVID-19 symptoms. Patient consented for infusion and was administered in the ER. Was observed for one hour post infusion, no adverse reactions noted. Discharge POC reviewed and he/she is agreeable with plan. ECG Initial ECG Impression Date: Jul 07, 2022 Initial ECG Impression Time: 11:32 Initial ECG Rate: 54 Initial ECG Rhythm: S.Rayshawn Initial ECG Impression: Nonspecific Changes Diagnostic Imaging Diagonstic Imaging: Xray Comments [facility] [place], [place] NAME: JAMES MENENDEZ Patrick [facility] REC#: [id number] PT STATUS: DEP ER : 1940 PHYSICIAN: KARISSA CALVILLO APRN ADMIT DATE: 07/07/22/ER Signed Date of Exam:07/07/22 CT ABDOMEN/PELVIS W PROCEDURE: CT abdomen and pelvis with contrast. TECHNIQUE: Multiple contiguous axial images were obtained through the abdomen and pelvis after administration of intravenous contrast. Auto Exposure Controls were utilized during the CT exam to meet ALARA standards for radiation dose reduction. All CT scans use one or more of the following dose optimizing techniques: automated exposure control, MA and/or KvP adjustment based on patient size and exam type or iterative reconstruction. DATE: July 07, 2022. COMPARISON: CT abdomen and pelvis September 02, 2018. INDICATION: 82-year-old male, left lower quadrant abdominal pain. The patient is COVID positive. FINDINGS: There are linear opacities in the right lower lobe and left lower lobe most consistent with atelectasis and/or scarring. There is minimal left pleural fluid and/or pleural thickening. There are coronary artery calcifications and additional areas of atherosclerotic disease. The liver is unremarkable in size and contour. There is no identified liver lesion. The main, right, left portal veins are patent. The gallbladder surgically absent. There is no biliary ductal dilation. There is fatty replacement of the pancreatic parenchyma. The spleen is normal in size. The adrenal glands are unremarkable. There is a low-attenuation right renal lesion on axial image 94 measuring up to 6.8 cm size. Internal attenuation is consistent with a benign cyst measuring specifically 8 Hounsfield units. The urinary collecting systems are not distended. There is no identified renal or ureteral stone. Urinary bladder is unremarkable. There are fat-containing inguinal hernias bilaterally. Prostate gland may be surgically absent. There is diverticulosis without evidence of acute diverticulitis. There is no evidence of acute appendicitis. The appendix is best seen on axial image 131 and adjacent sequential images. There is a small fat-containing anterior abdominal wall hernia to the right of midline axial image 95. There is no free intraperitoneal air. There is no drainable fluid collection. There is no free fluid in the abdomen or pelvis. There is aneurysmal dilation of the infrarenal abdominal aorta which measures 3.7 x 3.7 cm in diameter as measured on axial image 92. There is no identified abnormally enlarged lymph node in the abdomen or pelvis meeting CT size criteria for adenopathy. There is scoliosis. There are multilevel degenerative changes of the spine. 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 There is grade 1 anterolisthesis of L5 on S1 relating to facet arthropathy. There is interspinous hardware at the level of L3-L4. There is no identified acute bony abnormality. IMPRESSION: CT ABDOMEN AND PELVIS. 1. No identified acute abnormality in the abdomen or pelvis. 2. Infrarenal abdominal aortic aneurysm measuring 3.7 x 3.7 cm in diameter. This is an interval change since September 02, 2018. 3. Diverticulosis without evidence of acute diverticulitis. 4. Additional incidental findings as above. Dictated by: Dictated on workstation # [id number] Dict: 07/07/22 1226 Trans: 07/07/22 1702 [facility] [id number] Interpreted by: KLARISSA BELTRAN MD Electronically signed by: KLARISSA BELTRAN MD 07/07/221701 Comments [facility] [place] [place] NAME: JAMES MENENDEZ [facility] REC#: [id number] PT STATUS: [facility] ER : 1940 PHYSICIAN: KARISSA CALVILLO APRN ADMIT DATE: 07/07/22/ER Signed Date of Exam:07/07/22 CHEST 1 VIEW, AP/PA ONLY INDICATION: SOA COMPARISON: 10/17/2018. FINDINGS: Single frontal view of the chest demonstrates normal heart size and pulmonary vascularity. The lungs are well aerated and clear. No large pleural effusion or pneumothorax is seen. The visualized osseous structures show no acute abnormalities. IMPRESSION: 1. No acute cardiopulmonary process. Dictated by: Dictated on workstation # [id number] Dict: 07/07/22 1228 Trans: 07/07/221700 AS6 [id number] Interpreted by: CITLALY CAMILO MD Electronically signed by: CITLALY CAMILO MD 07/07/221700 Comments [facility] [place], [place] NAME: JAMES MENENDEZ [facility] REC#: [id number] PT STATUS: [facility] ER : 1940 PHYSICIAN: KARISSA CALVILLO APRN ADMIT DATE: 07/07/22/ER Signed Date of Exam:07/07/22 CT HEAD/CERVICAL SPINE WO PROCEDURE: CT head and CT cervical spine without contrast. TECHNIQUE: Multiple contiguous axial images were obtained through the brain and cervical spine without the use of intravenous contrast. Sagittal and coronal reformations through the cervical spine were then performed. Auto Exposure Controls were utilized during the CT exam to meet ALARA standards for radiation dose reduction. INDICATION: Headache and neck pain. CT HEAD: FINDINGS: Ventricles and sulci are appropriate for the patient's age. Patchy periventricular low attenuation is noted consistent with chronic microvascular ischemia. There is no sulcal effacement or midline shift. No acute intra-axial or extra-axial hemorrhage is detected. Cisterns are patent. There is some mucosal thickening in the bilateral maxillary sinuses as well as near-complete opacification of ethmoid air cells. IMPRESSION: 1. Changes of chronic microvascular ischemia. No acute intracranial process is detected. 2. Paranasal sinus disease. CT CERVICAL SPINE: FINDINGS: There is some straightening of the normal cervical lordotic curvature. Minimal retrolisthesis of C3 on C4 is noted as well as C5 on C6. There is minimal anterolisthesis of C4 on C5. Multilevel degenerative disc and facet disease is noted. There is disc space narrowing and marginal spurring present. No fractures are identified. Prevertebral tissues are within normal limits. Odontoid is intact. IMPRESSION: Cervical spondylosis. No acute bony abnormality is detected. Dictated by: Dictated on workstation # [id number] Dict: 07/07/22 1224 Trans: 07/07/22 1544 [id number] Interpreted by: JUSTINA BARNES MD Electronically signed by: JUSTINA BARNES MD 07/07/22 1544 Departure Impression Primary Impression: COVID-19 Disposition: 01 HOME, SELF-CARE Condition: Improved Departure-Patient Inst. Decision time for Depature: 14:49 Referrals: JAMISON BILLY MD (PCP/Family) Primary Care Physician Patient Instructions: Bebtelovimab FDA Fact Sheet Add. Discharge Instructions: Plan: 1. Discharge home. Follow up with Dr. Torers office regarding incidental finding of infrarenal aneurysm. Call his office to schedule follow up after isolation. 2. Stay home for 5 days and then mask when in public for additional 5 days. If you are still running fever, you will need to stay home until you are fever free. 3. Wash your hands frequently, disinfect surfaces at home. Try to isolate yourself from others in the house as much as you are able. 4. Clean areas that may have blood, stool, or body fluids on them. 5. Cover your mouth and nose when you cough or sneeze, throw away tissues, and wash hands immediately. 6. Return to ER if you develop: trouble breathing, persistent pain or pressur in the chest, new confusion, inabililty to wake or stay awake, pale, betancourt, blue- colored skin, lips, or nail beds depending on skin tone. 7. Return to ER for any other new, concerning, or worsening symptoms. All discharge instructions reviewed with patient and/or family. Voiced understanding. KARISSA CALVILLO [employer] Jul 07, 2022 11:20
[2022-07-07 11:26] LABS: BASOPHILS % (AUTO) 1 % (0-10); EOSINOPHILS # (AUTO) 0.8 10^3/uL (0.0-0.3); EOSINOPHILS % (AUTO) 11 % (0-10); HEMATOCRIT 39 % (40-54); HEMOGLOBIN 12.5 g/dL (13.3-17.7); LYMPHOCYTES # (AUTO) 1.9 10^3/uL (1.0-4.0); LYMPHOCYTES % (AUTO) 28 % (12-44); MEAN CORPUSCULAR HEMOGLOBIN 29 pg (25-34); MEAN CORPUSCULAR HGB CONC 32 g/dL (32-36); MEAN CORPUSCULAR VOLUME 89 fL (80-99); MEAN PLATELET VOLUME 9.2 fL (9.0-12.2); MONOCYTES # (AUTO) 0.6 10^3/uL (0.0-1.0); MONOCYTES % (AUTO) 9 % (0-12); NEUTROPHILS # (AUTO) 3.5 10^3/uL (1.8-7.8); NEUTROPHILS % (AUTO) 51 % (42-75); PLATELET COUNT 174 10^3/uL (130-400); WHITE BLOOD COUNT 6.8 10^3/uL (4.3-11.0)
[2022-07-07 11:29] LABS: ALBUMIN 3.5 GM/DL (3.2-4.5)
[2022-07-07 11:30] LABS: POTASSIUM 4.2 MMOL/L (3.6-5.0)
[2022-07-07 11:31] LABS: CALCIUM 9.5 MG/DL (8.5-10.1)
[2022-07-07 11:32] LABS: TOTAL PROTEIN 6.3 GM/DL (6.4-8.2)
[2022-07-07 11:34] LABS: BILIRUBIN,TOTAL 0.6 MG/DL (0.1-1.0)
[2022-07-07 11:35] LABS: CREATININE SERUM 0.79 MG/DL (0.60-1.30)
[2022-07-07] MEDS ORDERED: NS 100 ML (IVPB) BAG IV ONE (12:00)
[2022-07-07] MEDS ORDERED: CATHETER FLUSH 10 ML SYR IV PRN (12:00)
[2022-07-07] MEDS ORDERED: IOHEXOL 350 MG/ML 100 ML (OMNIPAQUE 350) VIAL IV ONE (12:00)
[2022-07-07] MEDS ORDERED: HOLD METFORMIN - RECEIVED CONTRAST 20 ML VIAL IV SCH (12:00)
--- NOTE | 2022-07-07 12:30 | Diagnostic Imaging Report ---
PROCEDURE: CT head and CT cervical spine without contrast. TECHNIQUE: Multiple contiguous axial images were obtained through the brain and cervical spine without the use of intravenous contrast. Sagittal and coronal reformations through the cervical spine were then performed. Auto Exposure Controls were utilized during the CT exam to meet ALARA standards for radiation dose reduction. INDICATION: Headache and neck pain. CT HEAD: FINDINGS: Ventricles and sulci are appropriate for the patient's age. Patchy periventricular low attenuation is noted consistent with chronic microvascular ischemia. There is no sulcal effacement or midline shift. No acute intra-axial or extra-axial hemorrhage is detected. Cisterns are patent. There is some mucosal thickening in the bilateral maxillary sinuses as well as near-complete opacification of ethmoid air cells. IMPRESSION: 1. Changes of chronic microvascular ischemia. No acute intracranial process is detected. 2. Paranasal sinus disease. CT CERVICAL SPINE: FINDINGS: There is some straightening of the normal cervical lordotic curvature. Minimal retrolisthesis of C3 on C4 is noted as well as C5 on C6. There is minimal anterolisthesis of C4 on C5. Multilevel degenerative disc and facet disease is noted. There is disc space narrowing and marginal spurring present. No fractures are identified. Prevertebral tissues are within normal limits. Odontoid is intact. IMPRESSION: Cervical spondylosis. No acute bony abnormality is detected. Dictated by: Dictated on workstation # [id number]
--- NOTE | 2022-07-07 12:31 | Diagnostic Imaging Report ---
INDICATION: SOA COMPARISON: 10/17/2018. FINDINGS: Single frontal view of the chest demonstrates normal heart size and pulmonary vascularity. The lungs are well aerated and clear. No large pleural effusion or pneumothorax is seen. The visualized osseous structures show no acute abnormalities. IMPRESSION: 1. No acute cardiopulmonary process. Dictated by: Dictated on workstation # [id number]
--- NOTE | 2022-07-07 12:47 | Diagnostic Imaging Report ---
PROCEDURE: CT abdomen and pelvis with contrast. TECHNIQUE: Multiple contiguous axial images were obtained through the abdomen and pelvis after administration of intravenous contrast. Auto Exposure Controls were utilized during the CT exam to meet ALARA standards for radiation dose reduction. All CT scans use one or more of the following dose optimizing techniques: automated exposure control, MA and/or KvP adjustment based on patient size and exam type or iterative reconstruction. DATE: July 07, 2022. COMPARISON: CT abdomen and pelvis September 02, 2018. INDICATION: 82-year-old male, left lower quadrant abdominal pain. The patient is COVID positive. FINDINGS: There are linear opacities in the right lower lobe and left lower lobe most consistent with atelectasis and/or scarring. There is minimal left pleural fluid and/or pleural thickening. There are coronary artery calcifications and additional areas of atherosclerotic disease. The liver is unremarkable in size and contour. There is no identified liver lesion. The main, right, left portal veins are patent. The gallbladder surgically absent. There is no biliary ductal dilation. There is fatty replacement of the pancreatic parenchyma. The spleen is normal in size. The adrenal glands are unremarkable. There is a low-attenuation right renal lesion on axial image 94 measuring up to 6.8 cm size. Internal attenuation is consistent with a benign cyst measuring specifically 8 Hounsfield units. The urinary collecting systems are not distended. There is no identified renal or ureteral stone. Urinary bladder is unremarkable. There are fat-containing inguinal hernias bilaterally. Prostate gland may be surgically absent. There is diverticulosis without evidence of acute diverticulitis. There is no evidence of acute appendicitis. The appendix is best seen on axial image 131 and adjacent sequential images. There is a small fat-containing anterior abdominal wall hernia to the right of midline axial image 95. There is no free intraperitoneal air. There is no drainable fluid collection. There is no free fluid in the abdomen or pelvis. There is aneurysmal dilation of the infrarenal abdominal aorta which measures 3.7 x 3.7 cm in diameter as measured on axial image 92. There is no identified abnormally enlarged lymph node in the abdomen or pelvis meeting CT size criteria for adenopathy. There is scoliosis. There are multilevel degenerative changes of the spine. 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 There is grade 1 anterolisthesis of L5 on S1 relating to facet arthropathy. There is interspinous hardware at the level of L3-L4. There is no identified acute bony abnormality. IMPRESSION: CT ABDOMEN AND PELVIS. 1. No identified acute abnormality in the abdomen or pelvis. 2. Infrarenal abdominal aortic aneurysm measuring 3.7 x 3.7 cm in diameter. This is an interval change since September 02, 2018. 3. Diverticulosis without evidence of acute diverticulitis. 4. Additional incidental findings as above. Dictated by: Dictated on workstation # [id number]
[2022-07-07] MEDS ORDERED: ACETAMINOPHEN 500 MG TAB (TYLENOL) PO PRN (14:00)
[2022-07-07] MEDS ORDERED: ONDANSETRON 4 MG/2 ML (SDV) Z0FRAN IV PRN (14:00)
[2022-07-07] MEDS ORDERED: BEBTELOVIMAB 175 MG/2 ML VIAL IV ONE (14:15)
[2022-07-07] MEDS ORDERED: diphenhydrAMINE 50 MG/ML INJ (BENADRYL) IV PRN (14:15)
[2022-07-07] MEDS ORDERED: EPINEPHrine INJECTION 1 MG/ML AMP IM PRN (14:15)
[2022-07-07] MEDS ORDERED: ORPHENADRINE 60 MG/2 ML (NORFLEX) AMP (ED ONLY) IVP ONE (15:00)
[2022-07-07 16:24] VITALS: BP 135/68
== END 2022-07-07 16:24 | disposition home or self-care (01) ==
LOC: EDUNIT# 10:57 → ER 10:58
DX: U07.1 COVID-19 (principal); G47.30 Sleep apnea, unspecified; G89.29 Other chronic pain; M54.9 Dorsalgia, unspecified; Z97.8 Presence of other specified devices; Z99.89 Dependence on other enabling machines and devices
CPT/HCPCS: 36415; 70450; 71045; 72125; 74177; 80053; 83605; 83880; 84145; 85025; 87040; 87636; 93005; 96374; 96375

== ENCOUNTER 2022-09-13 23:32 | Inpatient (IN) | payer MEDICARE ==
[~2022-09-13] VITALS: Ht 187.9 cm; Wt 93.5 kg
[~2022-09-13 23:32] MED LIST changes: +ALBU8.5H6 IH; +ALBU8.5H6 INH; -RT-ALBUINH IH; -RT-ALBUINH INH
[2022-09-14] VITALS (12 sets, daily range): BP systolic 107–151; BP diastolic 58–97
--- NOTE | 2022-09-14 01:14 | ED Fall/Injury ---
General Chief Complaint: Trauma-Non Activation Stated Complaint: FALL,PAIN FROM HIP DOWN RT SIDE Nursing Triage Note: PT ARRIVE POV WITH CC OF RIGHT HIP AND LEG PAIN AFTER PT TRIPPED AND FELL IN THE HALLWAY AT HIS HOUSE THIS EVENING. PT RATES PAIN 9/10 WHEN LEG IS MOVED. Source: patient History of Present Illness Date Seen by Provider: Sep 13, 2022 Time Seen by Provider: 23:47 Initial Comments PT ARRIVES VIA POV FROM HOME WITH C/O RIGHT HIP PAIN PT STATES ABOUT 4 HOURS AGO, HE WAS WALKING OUT OF THE BATHROOM, THINKS HE STUBBED HIS TOE ON THE DOOR JAMB, AND FELL, LANDING ON HIS RIGHT HIP DID NOT HIT HEAD OR HAVE LOSS OF CONSCIOUSNESS NO NECK PAIN OR NEW BACK PAIN--HAS CHRONIC BACK PAIN PT HAS A MORPHINE PAIN PUMP PLACED IN HIS LEFT LOWER BACK, AND WEARS THE POWER PACK TO HIS PUMP, ON HIS RIGHT SIDE --ATTACHED TO HIS BELT. THINKS HE LANDED ON THIS WHEN HE FELL, BUT THE DEVICE IS NOT BROKEN. ALSO C/O PAIN TO HIS RIGHT INGUINAL / PELVIS AREA WELL. PT HAS A LEFT INGUINAL HERNIA, AND IS WEARING A TRUSS . NO PARESTHESIAS OR MOTOR DEFICITS. PT WAS ABLE TO AMBULATE WITH A WALKER AT HOME, BUT WITH MUCH DIFFICULTY PT IS NOT ON ASPIRIN OR ANY BLOOD THINNERS HE HAD MOHS SURGERY ON HIS SCALP 2 WEEKS AGO, FOR A LARGE SKIN CANCER ON HIS HEAD. NO COMPLAINTS AT THIS TIME REGARDING THAT. PCP; DR. BILLY Allergies and Home Medications Allergies Coded Allergies: No Known Drug Allergies (Verified , 08/14/18) Patient Home Medication List Home Medication List Reviewed: Yes Albuterol Sulfate (Ventolin Hfa) 1 Puff Puff, 2 PUFF INH Q4H PRN for SHORTNESS OF BREATH, (Reported) Entered as Reported by: SHERRY JONES on 12/12/16 0928 Fluticasone/Salmeterol (Advair 250-50 Diskus) 1 Each Blst.w.dev, 1 PUFF IH D AILY, (Reported) Entered as Reported by: SHERRY JONES on 08/07/18 1522 Hydrocodone Bit/Acetaminophen (HYDROcodone/APAP 10/325 TABLET) 1 Each Tablet, 1 TAB PO QID PRN for PAIN-MILD, (Reported) Entered as Reported by: JESSICA CHURCH on 10/03/18 1104 Hydrocodone Bit/Acetaminophen (Lortab 7.5 Mg Tablet) 1 Ea Tablet, 1 EACH PO Q4H PRN for PAIN-MODERATE Prescribed by: LYDIA GUIDRY on 10/21/18 1632 Metoclopramide HCl (Reglan) 5 Mg Tablet, 5 MG PO QIDACHS Prescribed by: JAMISON BILLY on 10/22/18 0904 Olmesartan Medoxomil (Olmesartan Medoxomil) 20 Mg Tablet, 20 MG PO DAILY, (Reported) Entered as Reported by: SHERRY JONES on 08/07/18 1504 Ondansetron (Ondansetron Odt) 4 Mg Tab.rapdis, 4 MG PO Q6H PRN for NAUSE A/VOMITING Prescribed by: HERMILA GARDUNO on 08/15/20 1043 Prednisone (Prednisone) 10 Mg Tab, 10 MG PO DAILY, (Reported) Entered as Reported by: SHERRY JONES on 08/07/18 1504 Review of Systems Review of Systems Constitutional: no symptoms reported Respiratory: no symptoms reported Cardiovascular: no symptoms reported Gastrointestinal: see HPI Genitourinary: no symptoms reported Musculoskeletal: see HPI Skin: see HPI Psychiatric/Neurological: No Symptoms Reported Past Karipnt-Onlxmo-Mbrmvv Hx Patient Social History Tobacco Use?: No Substance use?: No Alcohol Use?: No Immunizations Up To Date Tetanus Booster (TDap): Unknown PED Vaccines UTD: Yes Influenza Vaccine Up-to-Date: Yes; Up-to-Date Seasonal Allergies Seasonal Allergies: Yes Past Medical History Surgeries: Yes (ROBOTIC PROSTATECTOMY (MRSA POST-OP 2009);CARDIAC ABLATION;SKIN CA REMOVAL) Cardiac, Gallbladder, Prostatectomy Respiratory: Yes (ASTHMA) Asthma, Sleep Apnea Currently Using CPAP: Yes Currently Using BIPAP: No Cardiac: Yes (HX A FLUTTER-HEART ABALATION SEVERAL YRS AGO)) High Cholesterol, Hypertension Neurological: No Reproductive Disorders: No Sexually Transmitted Disease: No HIV/AIDS: No Genitourinary: Yes (PROSTATE CANCER) Prostate Problems, Kidney Stones Gastrointestinal: Yes Diverticulosis Musculoskeletal: Yes (AUTO-IMMUNE CONNECTIVE TISSUE DISORDER;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) Degenerate Disk Disease, Arthritis, Scoliosis, Chronic Back Pain Endocrine: No HEENT: No Loss of Vision: Denies Hearing Impairment: Denies Cancer: Yes Bladder, Prostate, Skin Did You Recieve Any Treatments: Yes What Type of Treatment Did You: Surgical Intervention Psychosocial: No Integumentary: Yes (SKIN CANCER) Blood Disorders: No Adverse Reaction/Blood Tranf: No Family Medical History Dementia 19 MOTHER FH: lung cancer 19 FATHER Cancer, Hypertension, Lung Disease, Other Conditions/Hx Physical Exam Vital Signs Vital Signs - First Documented 09/13/22 23:40 Temp 36.7 Pulse 83 B/P (MAP) 175/84 (114) Pulse Ox 96 O2 Delivery Room Air Capillary Refill : Height, Weight, BMI Height: 6'3.00" Weight: 210lbs. 0.0oz. 95.168248mf; 26.00 BMI Method:Stated General Appearance: WD/WN, no apparent distress HEENT: PERRL/EOMI Neck: normal inspection Cardiovascular: regular rate, rhythm, no murmur Respiratory: chest non-tender, normal breath sounds, no respiratory distress, no accessory muscle use Gastrointestinal: normal bowel sounds, non tender, soft Back: no CVA tenderness, no vertebral tenderness, other (SUBCUTANEOUS MORPHINE PUMP IS PRESENT ON LEFT LOWER BACK. NO SIGNS OF TRAUMA TO THIS AREA. 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 TENDERNESS TO RIGHT HIP AND INGUINAL AREA. NO EXTERNAL EVIDENCE OF TRAUMA. LIMITED ROM OF RIGHT HIP. DISTAL MOTOR/SENSORY/VASCULAR INTACT. 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 ) Carl Coma Score Best Eye Response: (4) Open Spontaneously Best Verbal Response: (5) Oriented Best Motor Response: (6) Obeys Commands [place] Total: 15 Progress/Results/Core Measures Results/Orders My Orders Orders - ANNALEE FELTON DO Ct Abdomen/Pelvis Wo (09/14/22 00:01) Pelvis 1 To 2 Views (09/14/22 00:01) Vital Signs/I&O 09/13/22 23:40 Temp 36.7 Pulse 83 B/P (MAP) 175/84 (114) Pulse Ox 96 O2 Delivery Room Air Blood Pressure Mean: 114 Progress Progress Note : Progress Note UNEVENTFUL ER STAY PT DID NOT ASK FOR ANY PAIN MEDICATION DURING ER STAY Diagnostic Imaging Comments CXR--NO ACUTE PROCESS, PENDING RADIOLOGIST REVIEW PELVIS XRAYS--QUESTIONABLE FX TO FEMORAL NECK. CT SCAN ORDERED. PENDING RADIOLOGIST REVIEW CT ABDOMEN/PELVIS--PER [facility] VIA FAX AT 0109 -SLIGHTLY IMPACTED RIGHT FEMORAL NECK FRACTURE -NO ACUTE PROCESS INVOLVING THE ABDOMEN. Reviewed: Reviewed by Me Departure Communication (Admissions) 0114--SPOKE WITH DR. PARRA, ORTHOPEDIC SURGEON, HE WILL SEE PT IN CONSULT AND PLANS ON TAKING TO SURGERY LATER TODAY 0118--SPOKE WITH DR. BILLY, ACCEPTS PT FOR ADMIT. Impression Primary Impression: Fall from standing Additional Impression: Closed right hip fracture Disposition: ADMITTED INPATIENT Condition: Stable Admissions Decision to Admit Reason: Admit from ER (Trauma) Decision to Admit/Date: Sep 14, 2022 Time/Decision to Admit Time: 01:15 Departure-Patient Inst. Referrals: JAMISON BILLY MD (PCP/Family) Primary Care Physician ANNALEE FELTON DO Sep 14, 2022 01:14
[2022-09-14] MEDS ORDERED: morphine INJ 4 MG/ML 1 ML (VIAL/SYRINGE) IV PRN (02:45)
[2022-09-14] MEDS ORDERED: ONDANSETRON 4 MG/2 ML (SDV) Z0FRAN IV PRN (02:45)
[2022-09-14] MEDS: D5 1/2 NS W/KCL 20 MEQ/L 1,000 ML IV SCH ×2 (03:25→11:10)
[2022-09-14 06:06] LABS: BASOPHILS % (AUTO) 0 % (0-10); EOSINOPHILS # (AUTO) 0.3 10^3/uL (0.0-0.3); EOSINOPHILS % (AUTO) 3 % (0-10); HEMATOCRIT 35 % (40-54); HEMOGLOBIN 11.3 g/dL (13.3-17.7); LYMPHOCYTES # (AUTO) 1.2 10^3/uL (1.0-4.0); LYMPHOCYTES % (AUTO) 14 % (12-44); MEAN CORPUSCULAR HEMOGLOBIN 29 pg (25-34); MEAN CORPUSCULAR HGB CONC 33 g/dL (32-36); MEAN CORPUSCULAR VOLUME 89 fL (80-99); MEAN PLATELET VOLUME 9.8 fL (9.0-12.2); MONOCYTES # (AUTO) 0.7 10^3/uL (0.0-1.0); MONOCYTES % (AUTO) 7 % (0-12); NEUTROPHILS # (AUTO) 6.7 10^3/uL (1.8-7.8); NEUTROPHILS % (AUTO) 75 % (42-75); PLATELET COUNT 140 10^3/uL (130-400); POTASSIUM 3.9 MMOL/L (3.6-5.0)
[2022-09-14 06:07] LABS: CALCIUM 8.9 MG/DL (8.5-10.1)
[2022-09-14 06:09] LABS: TOTAL PROTEIN 5.2 GM/DL (6.4-8.2)
[2022-09-14 06:10] LABS: BILIRUBIN,TOTAL 0.5 MG/DL (0.1-1.0)
[2022-09-14 06:12] LABS: CREATININE SERUM 0.83 MG/DL (0.60-1.30)
--- NOTE | 2022-09-14 07:56 | Consultation - Ortho ---
Consult - Ortho Subjective Date of Exam 09/14/22 Chief Complaint Right Hip Pain HPI/Events since last exam fall last night, seen in ER and diagnosed with right femoral neck fracture, I have been asked to manage the fracture Medical, Surgical History see ER note/admit Social History see ER note/admit Family History see ER note/admit Review of Systems not obtained Allergies: Coded Allergies: No Known Drug Allergies (Verified , 08/14/18) Home Meds Active Scripts Ondansetron (Ondansetron Odt) 4 Mg Tab.rapdis, 4 MG PO Q6H PRN for NAUSEA/VOMITING, #15 TAB 0 Refills Prov:HERMILA GARDUNO 08/15/20 Metoclopramide HCl (Reglan) 5 Mg Tablet, 5 MG PO QIDACHS, #40 TAB Prov:JAMISON BILLY MD 10/22/18 Hydrocodone Bit/Acetaminophen (LORTAB 7.5 MG TABLET) 1 Ea Tablet, 1 EACH PO Q4H PRN for PAIN-MODERATE MDD 6, #35 TAB Prov:LYDIA GUIDRY MD 10/21/18 Reported Medications Hydrocodone Bit/Acetaminophen (HYDROcodone/APAP 10/325 TABLET) 1 Each Tablet, 1 TAB PO QID PRN for PAIN-MILD 10/03/18 Fluticasone/Salmeterol (Advair 250-50 Diskus) 1 Each Blst.w.dev, 1 PUFF IH DAILY, INHALER 08/07/18 Olmesartan Medoxomil (Olmesartan Medoxomil) 20 Mg Tablet, 20 MG PO DAILY, TAB 08/07/18 Prednisone (Prednisone) 10 Mg Tab, 10 MG PO DAILY, TAB 08/07/18 Albuterol Sulfate (Ventolin Hfa) 1 Puff Puff, 2 PUFF INH Q4H PRN for SHORTNESS OF BREATH, INHALER 12/12/16 Objective Exam Right Leg: no shortening or deformity, +DF of ankle, sensation intact grossly to light touch Vital Signs Vital Signs Date Time Temp Pulse Resp B/P (MAP) Pulse Ox O2 Delivery O2 Flow Rate FiO2 09/14/22 04:00 36.6 56 16 113/68 (83) 92 Room Air 09/14/22 02:40 Room Air 09/14/22 02:36 36.2 56 16 151/80 (103) 93 Room Air 09/14/22 02:25 36.7 64 16 114/68 93 Room Air 09/13/22 23:40 36.7 83 175/84 (114) 96 Room Air I & O 09/14/22 07:00 Intake Total 0 ml Output Total 225 ml Balance -225 ml Lab Results Laboratory Tests 09/14/22 05:30: White Blood Count 9.0, Red Blood Count 3.91L, Hemoglobin 11.3L, Hematocrit 35L, Mean Corpuscular Volume 89, Mean Corpuscular Hemoglobin 29, Mean Corpuscular Hemoglobin Concent 33, Red Cell Distribution Width 14.0, Platelet Count 140, Mean Platelet Volume 9.8, Immature Granulocyte % (Auto) 1, Neutrophils (%) (Auto) 75, Lymphocytes (%) (Auto) 14, Monocytes (%) (Auto) 7, Eosinophils (%) (Auto) 3, Basophils (%) (Auto) 0, Neutrophils # (Auto) 6.7, Lymphocytes # (Auto) 1.2, Monocytes # (Auto) 0.7, Eosinophils # (Auto) 0.3, Basophils # (Auto) 0.0, Immature Granulocyte # (Auto) 0.1, Sodium Level 140, Potassium Level 3.9, Chloride Level 107, Carbon Dioxide Level 23, Anion Gap 10, Blood Urea Nitrogen 26H, Creatinine 0.83, Estimat Glomerular Filtration Rate 87, BUN/Creatinine Ratio 31, Glucose Level 93, Calcium Level 8.9, Corrected Calcium 9.7, Total Bilirubin 0.5, Aspartate Amino Transf (AST/SGOT) 22, Alanine Aminotransferase (ALT/SGPT) 21, Alkaline Phosphatase 35L, Total Protein 5.2L, Albumin 3.0L Imaging AP Pelvis reviewed from PACS and demonstrated a right valgus impacted femoral neck fracture Assessment and Plan Assessment Right Valgus Impacted Femoral Neck Fracture Problem List Right Valgus Impacted Femoral Neck Fracture Plan I have recommended closed reduction and percutaneous pinning for essentially in situ stabilization of the fracture. Discussed risks and benefits. Discussed nature of the procedure and the postoperative course. Consent has been obtained. Will proceed this AM. Final Diagonsis Right Valgus Impacted Femoral Neck Fracture Level of the visit: Level 3 (preop global) JYOTI PARRA MD Sep 14, 2022 07:56
[2022-09-14] MEDS ORDERED: LACTATED RINGERS 1,000 ML IV PRN (08:00)
--- NOTE | 2022-09-14 08:14 | Diagnostic Imaging Report ---
EXAMINATION: Chest 1 view HISTORY: Chest pain COMPARISON: 07/07/2022 FINDINGS: Heart size and pulmonary vasculature are normal. Minimal blunting of the left costophrenic angle. No pneumothorax. Minimal left basilar opacities. The osseous structures are intact. IMPRESSION: 1. Trace left pleural effusion or pleural thickening with left basilar atelectasis. Dictated by: Dictated on workstation # [id number]
--- NOTE | 2022-09-14 08:23 | Diagnostic Imaging Report ---
EXAMINATION: CT abdomen and pelvis without contrast. TECHNIQUE: Multiple contiguous axial images were obtained through the abdomen and pelvis without the use of intravenous contrast. All CT scans use one or more of the following dose optimizing techniques: automated exposure control, MA and/or KvP adjustment based on patient size and exam type or iterative reconstruction. HISTORY: FALL, NEW HERNIA, RIGHT HIP AND GROIN AND THIGH PAIN COMPARISON: 07/07/2022 FINDINGS: Lung bases: Bibasilar dependent atelectasis. Solid organs: The liver is normal. The gallbladder is surgically absent. There is no biliary ductal dilation. Pancreas is normal. Spleen is normal. Adrenal glands are normal. There is nonobstructing 0.2 cm left renal calculus. There are right renal cysts which require no follow-up. No hydronephrosis. Bowel: The stomach and small bowel are normal without obstruction. There is scattered colonic diverticulosis. The appendix is normal. Surgical changes of the distal colon. Peritoneum: There is no intraperitoneal free fluid or free air. No suspicious lymphadenopathy. Vasculature: There are vascular calcifications of the aorta with aneurysmal dilatation of the infrarenal abdominal aorta measuring up to 3.4 cm. Musculoskeletal: Degenerative changes of the spine without suspicious osseous lesion or compression fracture. Left flank device is present. There are bilateral fat-containing inguinal hernias. There is cortical irregularity seen along the right superior pubic ramus near the pubic symphysis. Pelvis: Prostate gland is either diminutive or surgically absent. The urinary bladder is normal. IMPRESSION: 1. Possible nondisplaced fracture of the right superior pubic ramus. 2. No other acute abnormality seen within the abdomen or pelvis. 3. Fat-containing bilateral inguinal hernias. 4. Colonic diverticulosis. Dictated by: Dictated on workstation # [id number]
[2022-09-14] MEDS ORDERED: ceFAZolin INJECTION 2,000 MG in NS (IVPB) 50 ML IV NR (08:30)
--- NOTE | 2022-09-14 08:47 | Diagnostic Imaging Report ---
INDICATION: Pelvic pain. COMPARISON: Imaging from the same date. TECHNIQUE: 2 radiographs of the pelvis dated 09/14/2022. FINDINGS: Postsurgical changes noted within the visualized lower lumbar spine. Stimulator/pump is noted overlying the left flank. Surgical clips are seen overlying the pelvis. Right femoral neck fracture is identified with minimal valgus configuration. Chain suture overlying the left pelvis. The sacroiliac joints and pubic symphysis are intact. No additional acute fracture. No dislocation. Scattered degenerative changes, greatest within the partially visualized lower lumbar spine. IMPRESSION: Acute appearing essentially nondisplaced fracture involving the right femoral neck with minimal valgus configuration. Additional postsurgical and chronic findings as above. Dictated by: Dictated on workstation # [id number]
--- NOTE | 2022-09-14 09:16 | History & Physicial ---
History of Present Illness History of Present Illness Reason for visit/HPI Pt is an 82 y/o male who is known to me from clinic. Jorge's gave the history as he was in surgery and groggy from recovery. The patient's spouse reports that he fell in the bathroom and he hit his hip when he fell. He was ambulating with increasing pain and eventually his convinced him to go to the ER where they found an impacted fracture of the right hip. Date of Admission Sep 14, 2022 at 01:15 Date Seen by a Provider: Sep 14, 2022 Time Seen by a Provider: 09:40 I consulted on this patient on 09/14/22 09:16 Attending Physician Jamison Hussein MD Admitting Physician Admitting Physician: Jamison Hussein MD Attending Physician: Jamison Hussein MD Consult Dr. Cook - orthopedic surgeon Allergies and Home Medications Allergies Coded Allergies: No Known Drug Allergies (Verified , 08/14/18) Patient Home Medication List Home Medication List Reviewed: Yes Albuterol Sulfate (Ventolin Hfa) 1 Puff Puff, 2 PUFF INH Q4H PRN for SHORTNESS OF BREATH, (Reported) Entered as Reported by: SHERRY JONES on 12/12/16 0928 Last Action: Held Fluticasone/Salmeterol (Advair 250-50 Diskus) 1 Each Blst.w.dev, 1 PUFF IH DAILY, (Reported) Entered as Reported by: SHERRY JONES on 08/07/18 1522 Last Action: Held Hydrocodone Bit/Acetaminophen (HYDROcodone/APAP 10/325 TABLET) 1 Each Tablet, 1 TAB PO QID PRN for PAIN-MILD, (Reported) Entered as Reported by: JESSICA CHURCH on 10/03/18 1104 Last Action: Held Hydrocodone Bit/Acetaminophen (Lortab 7.5 Mg Tablet) 1 Ea Tablet, 1 EACH PO Q4H PRN for PAIN-MODERATE Prescribed by: LYDIA GUIDRY on 10/21/18 1632 Last Action: Held Olmesartan Medoxomil (Olmesartan Medoxomil) 20 Mg Tablet, 20 MG PO DAILY, (Reported) Entered as Reported by: SHERRY JONES on 08/07/18 1504 Last Action: Reviewed Ondansetron (Ondansetron Odt) 4 Mg Tab.rapdis, 4 MG PO Q6H PRN for NAUSEA/VOMITING Prescribed by: HERMILA GARDUNO on 08/15/20 1043 Last Action: Reviewed Prednisone (Prednisone) 10 Mg Tab, 10 MG PO DAILY, (Reported) Entered as Reported by: SHERRY JONES on 08/07/18 1504 Last Action: Reviewed Discontinued Medications Metoclopramide HCl (Reglan) 5 Mg Tablet, 5 MG PO QIDACHS Prescribed by: JAMISON HUSSEIN on 10/22/18 0904 Last Action: Discontinued Past Twohlrd-Muzkng-Odutoq Hx Patient Social History Marrital Status: Living Status: lives at home with his Employed/Student: retired Smoking Status: Former Smoker 2nd Hand Smoke Exposure: No Recent Hopitalizations: No (OUT 08/10/18) Have you traveled recently?: No Alcohol Use?: No Pt feels they are or have been: No Immunizations Up To Date Tetanus Booster (TDap): Unknown Pediatric: Yes Date of Pneumonia Vaccine: Jul 15, 2016 Date of Influenza Vaccine: Jul 29, 2018 Seasonal Allergies Seasonal Allergies: Yes Surgeries Yes (ROBOTIC PROSTATECTOMY (MRSA POST-OP 2009);CARDIAC ABLATION;SKIN CA REMOVAL) Cardiac, Gallbladder, Prostatectomy Respiratory Yes (ASTHMA) Currently Using CPAP: Yes Currently Using BIPAP: No Cardiovascular Yes (HX A FLUTTER-HEART ABALATION SEVERAL YRS AGO)) High Cholesterol, Hypertension Neurological No Reproductive System Hx Reproductive Disorders: No Sexually Transmitted Disease: No HIV/AIDS: No Genitourinary Yes (PROSTATE CANCER) Prostate Problems, Kidney Stones Gastrointestinal Yes Diverticulosis Musculoskeletal Yes (AUTO-IMMUNE CONNECTIVE TISSUE DISORDER;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) Degenerate Disk Disease, Arthritis, Scoliosis, Chronic Back Pain Endocrine History of Endocrine Disorders: No HEENT History of HEENT Disorders: No Loss of Vision: Denies Hearing Impairment: Denies Cancer Yes Bladder, Prostate, Skin Did You Recieve Any Treatments: Yes Type of Treatment: Surgical Intervention Cancer Comment: PAST MEDICAL HISTORY: Autoimmune connective tissue disorder, history of atrial fibrillation, history of prostate cancer, asthma, sleep apnea and nephrolithiasis. PAST SURGICAL HISTORY: Robotic-assisted prostatectomy, cardiac ablation, open cholecystectomy. Psychosocial History of Psychiatric Problem: No Integumentary History of Skin or Integumenta: Yes (SKIN CANCER) Blood Transfusions History of Blood Disorders: No Adverse Reaction to a Blood Tr: No Reviewed Nursing Assessment Reviewed/Agree w Nursing PMH: Yes Family Medical History Significant Family History: Heart Disease, Cancer, Hypertension, Lung Disease, Other Conditions/Hx Family Hx: Dementia 19 MOTHER FH: lung cancer 19 FATHER Review of Systems Constitutional: No chills, No diaphoresis, No fever, No malaise; weakness (chronic) EENTM: hearing loss Respiratory: No short of breath, No wheezing Cardiovascular: No chest pain, No edema Gastrointestinal: No abdominal pain, No constipation, No diarrhea, No nausea, No vomiting Genitourinary: incontinence Musculoskeletal: other (chronic back pain and right hip pain post op) Skin: other (wound on scalp from MOHS surgery) Psychiatric/Neurological: Denies Anxiety, Denies Depressed; Weakness (chronic) All Other Systems Reviewed Negative Unless Noted: Yes Physical Exam Vital Signs Vital Signs - First Documented 09/13/22 09/14/22 23:40 02:25 Temp 36.7 Pulse 83 Resp 16 B/P (MAP) 175/84 (114) Pulse Ox 96 O2 Delivery Room Air Capillary Refill : Height, Weight, BMI Height: 6'3.00" Weight: 210lbs. 0.0oz. 95.536080tm; 26.48 BMI Method:Stated General Appearance: No Apparent Distress (groggy post-op), WD/WN HEENT: PERRL/EOMI Respiratory: Chest Non Tender, Lungs Clear, Normal Breath Sounds, No Accessory Muscle Use, No Respiratory Distress Cardiovascular: Regular Rate, Rhythm Gastrointestinal: Non Tender, Soft Rectal: Deferred Back: Other (pt lying down post-op unable to eval) Extremity: Other (right hip with operative dressing in place, + pedal pulses) Neurologic/Psychiatric: Alert (slightly groggy post-operatively, oriented to person, place, not time); No Depressed Affect, No Facial Droop Skin: Normal Color, Warm/Dry, Other (approximately 3 x 3 cm rounded wound on scalp with granulation tissue at surgical edges, with thick yellow slough in center of the wound with drying out of the center of the sough starting to form a leathery surface) Assessment/Plan Assessment and Plan Right Valgus Impacted Femoral Neck Fracture Falling episode at home Chronic weakness Chronic back pain Chronic pain pump in place Polymyalgia rheumatica Chronic steroid therapy Hypertension Sleep apnea Right Valgus Impacted Femoral Neck Fracture due to Falling episode at home - immediately post op - right hip surgical fixation with pinning - defer the patient's therapy orders to Dr. Cook - would like to see pt go to IR[facility] if possible for therapy. Chronic weakness with Chronic back pain and Chronic pain pump in place - pt will continue with his pain pump as well as oral and prn iv pain medication for acute episodes of pain from hip fx. Polymyalgia rheumatica with Chronic steroid therapy - give stress dose of steroid today and dose of steroid tomorrow and oral steroid Hypertension - will restart home regimen tomorrow. Sleep apnea - start cpap tonight dvt prophylaxis with scd's and lovenox gi prophylaxis with ppi therapy Admission Diagnosis Right Valgus Impacted Femoral Neck Fracture Falling episode at home Chronic weakness Chronic back pain Chronic pain pump in place Polymyalgia rheumatica Chronic steroid therapy Hypertension Sleep apnea Admission Status: Inpatient Order (span 2 midnights) Reason for Inpatient Admission: inpatient admissin for hip fracture - will require at least 2-3 midnights in the hospital for stabilization, surgery and pain management and placement JAMISON HUSSEIN MD Sep 14, 2022 09:16
--- NOTE | 2022-09-14 09:31 | Operative Report - Ortho ---
Operative Report Surgeon (s)/Poultry Cutter (s) Surgeon JYOTI PARRA MD Poultry Cutter n/a Pre-Operative Diagnosis Right Valgus Impacted Femoral Neck Fracture Post-Operative Diagnosis same Operative Report Date of Procedure: Sep 14, 2022 Name of Procedure Performed: Closed Reduction and Pinning of Right Femoral Neck Fracture Description & Findings After obtaining informed consent and marking the patient in the preoperative holding area, IV antibiotics were administered. Patient was taken to the operating room and general anesthesia was induced. Right leg was placed in the traction spar. Left leg was placed in the well leg vazquez. Surgical timeout was taken. The right lower extremity was prepped and draped in the usual sterile fashion. Initially a guidewire was placed in the calcar position and posteriorly in the femoral neck. C-arm was used to evaluate position of the wire. 2nd wire was placed more superiorly. A 3rd wire was placed between the first two wires but more anteriorly. Position of the wires were confirmed on C- arm. Measurements were taken. A 110 mm calcar screw was placed, first by power and then seated by hand, the more superior screw was placed and it measured 100 mm, the last screw which was the more posterior one measured 105 mm. Wires were removed. Final AP and lateral images were obtained using C-arm and transferred to PACS. Images demonstrated maintained reduction of the femoral neck fracture and appropriate position of the screws. Wound was lavaged with normal saline. Subcutaneous layer was closed with 2-0 vicryl and skin was closed with zita. Wound was dressed with xeroform, 4x4s, and tape. Patient tolerated the procedure well and was stable to the recovery room. Anesthesia Type General Estimated Blood Loss minimal Specimen(s) collected/removed None JYOTI PARRA MD Sep 14, 2022 09:31
--- NOTE | 2022-09-14 09:50 | Diagnostic Imaging Report ---
INDICATION: Right hip fracture. Fluoroscopy was provided in the OR during right hip pinning. 76 seconds of fluoroscopic time was utilized. 2 images were obtained demonstrating 3 partially threaded screws transfixing right femoral neck. IMPRESSION: Fluoroscopy during right hip pinning. Dictated by: Dictated on workstation # [id number]
[2022-09-14] MEDS ORDERED: ONDANSETRON 4 MG/2 ML (SDV) Z0FRAN IVP PRN (10:00)
[2022-09-14] MEDS ORDERED: fentaNYL INJ 100 MCG/2 ML AMP IVP ONE (10:00)
[2022-09-14] MEDS ORDERED: methylPREDNISolone 40 MG/ML (Solu-MEDROL) VIAL IV NR (13:00)
[2022-09-14] MEDS ORDERED: PANTOPRAZOLE 40 MG (PROTONIX) TAB PO NR (13:30)
--- NOTE | 2022-09-14 14:13 | Wound Care Assessment ---
Wound Care Assessment Date Seen by Provider: Sep 14, 2022 Time Seen by Provider: 14:05 Chief Complaint Surgical wound HPI This 82 year old gentleman just completed [facility] for hip fracture and PCP noted open surgical wound to scalp on evaluation. MOHS procedure for "skin cancer" on 08-29-22. They were concerned with the apparance of the wound yesterday and communicated with surgeons office (and sent photos). The surgeon's office reassured patient and advised continuation of current dressings. Daily washing with baby shampoo and vaseline to wound bed. On exam today I noted a large unstable eschar with some slough at edges. Small amount of viable granulation tissue only. Discussed options including vashe WTD or xeroform dressings. His was hesitant to do anything without communication with his surgeon (Dermatology at ). We plan to reach out to their office today and discuss treatment options. He will follow up with them following discharge. PEM, atrial fibrillation, MOHS surgery 08-29-22 at dermatology Smoking Status: Former Smoker Recreational Drug Use: No Alcohol Use: Denies Use Review of Systems Musculoskeletal: leg pain Exam Vital Signs Date Time Temp Pulse Resp B/P (MAP) Pulse Ox O2 Delivery O2 Flow Rate FiO2 09/14/22 11:34 36.3 63 16 142/78 (99) 88 Room Air 09/14/22 10:25 4.00 Capillary Refill : General Appearance: WD/WN, no apparent distress Neck: full range of motion Neurologic/Psychiatric: alert, normal mood/affect, oriented x 3 Skin: normal color, warm/dry Skin Problem Location: scalp wound assessment: The epithelialization is none. There is no tunneling or undermining. Drainage is medium and serous, granulation is small and pink. Necrotic is large and slough and eschar, the margins show epibole Results Laboratory Tests 09/14/22 05:30: White Blood Count 9.0, Red Blood Count 3.91L, Hemoglobin 11.3L, Hematocrit 35L, Mean Corpuscular Volume 89, Mean Corpuscular Hemoglobin 29, Mean Corpuscular Hemoglobin Concent 33, Red Cell Distribution Width 14.0, Platelet Count 140, Mean Platelet Volume 9.8, Immature Granulocyte % (Auto) 1, Neutrophils (%) (Auto) 75, Lymphocytes (%) (Auto) 14, Monocytes (%) (Auto) 7, Eosinophils (%) (Auto) 3, Basophils (%) (Auto) 0, Neutrophils # (Auto) 6.7, Lymphocytes # (Auto) 1.2, Monocytes # (Auto) 0.7, Eosinophils # (Auto) 0.3, Basophils # (Auto) 0.0, Immature Granulocyte # (Auto) 0.1, Sodium Level 140, Potassium Level 3.9, Chloride Level 107, Carbon Dioxide Level 23, Anion Gap 10, Blood Urea Nitrogen 26H, Creatinine 0.83, Estimat Glomerular Filtration Rate 87, BUN/Creatinine Ratio 31, Glucose Level 93, Calcium Level 8.9, Corrected Calcium 9.7, Total Bilirubin 0.5, Aspartate Amino Transf (AST/SGOT) 22, Alanine Aminotransferase (ALT/SGPT) 21, Alkaline Phosphatase 35L, Total Protein 5.2L, Albumin 3.0L Assessment/Plan/Dx Assessment: 1. Surgical wound scalp (MOHS) 2. PEM 3. Hip fracture Plan: 1. We will reach out to surgeon's office to discuss dressings. My recommendation would be xeroform guaze daily or vashe WTD twice daily dressings. I would be hesitant to use Santyl on this wound without surgeon's input. If we are unable to reach them due to the holiday and the patient is not amendable to the suggestions made by wound care, I would recommend continuation of surgeon's current dressings with follow up soon after discharge from facility. 2. Protein supplementation indicated 3. Per primary team STEPHANIE DECKER MD Sep 14, 2022 14:13
--- NOTE | 2022-09-14 14:17 | Anesthesia-General Post-Op ---
General Patient Condition Mental Status/LOC: Same as Preop Cardiovascular: Satisfactory Nausea/Vomiting: Absent Respiratory: Satisfactory Pain: Controlled Complications: Absent Post Op Complications Complications None Follow Up Care/Instructions Patient Instructions None needed. Anesthesia/Patient Condition Patient Condition Patient is doing well, no complaints, stable vital signs, no apparent adverse anesthesia problems. No complications reported per nursing. RIKKI UMANA CRNA Sep 14, 2022 14:17
--- NOTE | 2022-09-14 14:24 | Physical Therapy Evaluation ---
PT Evaluation-General Medical Diagnosis Admission Date Sep 14, 2022 at 01:15 Medical Diagnosis: right hip surgical fixation with pinning Onset Date: Sep 14, 2022 Therapy Diagnosis Therapy Diagnosis: impaired mobility Height/Weight Height (Feet): 6 Height (Inches): 3.00 Weight (Pounds): 210 Weight (Ounces): 0.0 Precautions Precautions/Isolations: Standard Precautions Weight Bear Status Right Lower Extremity: Right Partial Weight Bearing (30-50#) Left Lower Extremity: Left Full Weight Bearing touchdown 30 to 50 pounds Referral Physician: Joyce Reason for Referral: Evaluation/Treatment Medical History Pertinent Medical History: HTN Additional Medical History Surgeries Yes (ROBOTIC PROSTATECTOMY (MRSA POST-OP 2009);CARDIAC ABLATION;SKIN CA REMOVAL) Cardiac, Gallbladder, Prostatectomy Respiratory Yes (ASTHMA) Currently Using CPAP: Yes Currently Using BIPAP: No Cardiovascular Yes (HX A FLUTTER-HEART ABALATION SEVERAL YRS AGO)) High Cholesterol, Hypertension Neurological No Reproductive System Hx Reproductive Disorders: No Sexually Transmitted Disease: No HIV/AIDS: No Genitourinary Yes (PROSTATE CANCER) Prostate Problems, Kidney Stones Gastrointestinal Yes Diverticulosis Musculoskeletal Yes (AUTO-IMMUNE CONNECTIVE TISSUE DISORDER;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) Degenerate Disk Disease, Arthritis, Scoliosis, Chronic Back Pain Endocrine History of Endocrine Disorders: No HEENT History of HEENT Disorders: No Loss of Vision: Denies Hearing Impairment: Denies Cancer Yes Bladder, Prostate, Skin Did You Recieve Any Treatments: Yes Type of Treatment: Surgical Intervention Cancer Comment: PAST MEDICAL HISTORY: Autoimmune connective tissue disorder, history of atrial fibrillation, history of prostate cancer, asthma, sleep apnea and nephrolithiasis. PAST SURGICAL HISTORY: Robotic-assisted prostatectomy, cardiac ablation, open cholecystectomy. Psychosocial History of Psychiatric Problem: No Integumentary History of Skin or Integumenta: Yes (SKIN CANCER) Blood Transfusions History of Blood Disorders: No Adverse Reaction to a Blood Tr: No Current History right femoral neck fx Reviewed History: Yes Social History Current Living Status: Spouse Entry Into Home: Stairs With Railing PT Steps Into Home: 2 Prior Prior Level of Function SCALE: Activities may be completed with or without assistive devices. 2-Iouebbwayx-twqhkpt completes the activity by him/herself with no assistance from a helper. 5-Set-up or Clean-up Assistance-helper sets up or cleans up; patient completes activity. [place] assists only prior to or following the activity. 4-Supervision or Touching Assistance-helper provides verbal cues and/or touching/steadying and/or contact guard assistance as patient completes activity. Assistance may be provided throughout the activity or intermittently. 3-Partial/Moderate Assistance-helper does LESS THAN HALF the effort. [place] lifts, holds or supports trunk or limbs, but provides less than half the effort. 2-Substantial/Maximal Assistance-helper does MORE THAN HALF the effort. [place] lifts or holds trunk or limbs and provides more than half the effort. 8-Ozdyvqich-pvetiz does ALL the effort. Patient does none of the effort to compl ete the activity. Or, the assistance of 2 or more helpers is required for the patient to complete the activity. If activity was not attempted, code reason: 7-Patient Refused. 9-Not Applicable-not attempted and the patient did not perform the activity before the current illness, exacerbation or injury. 10-Not Attempted due to Environmental Limitations-(lack of equipment, weather restraints, etc.). 88-Not Attempted due to Medical Conditions or Safety Concerns. Bed Mobility: 6 Transfers (B,C,W/C): 6 Gait: 6 Stairs: 6 Indoor Mobility (Ambulation): Independent Stairs: Independent PT Evaluation-Current Subjective Patient in bed pre tx, agrees to PT, has no complaints of pain (says he can feel it but no pain) Pt/Family Goals to be independent at home Objective Patient Orientation: Person, Place, Situation Attachments: Oxygen Sensory Hearing: Functional Sensation Right Lower Extremit: Intact Sensation Left Lower Extremity: Intact Transfers Roll Left to Right (QC): 4 Lying to Sitting/Side of Bed(Q: 3 Sit to Stand (QC): 4 Chair/Gby-ub-Kvryy Xfer(QC): 4 Min assist for supine to sit, CGA for sit to stand and transfers Gait Does the Patient Walk?: Yes Mode of Locomotion: Walk Anticipated Mode of Locomotion: Walk Distance: 5' Gait Assistive Device: FWW Comments/Gait Description Patient is partial weight bearing and he is compliant with it, was able to take steps to the recliner for a total of about 5', CGA Balance Sitting Static: Normal Sitting Dynamic: Normal Standing Static: Good Standing Dynamic: Good Treatment RLE seated exercises x20 (AP, LAQ, hip abd/add) Assessment/Needs Patient in recliner post tx with nurse call, phone, tray, all needs met. Patient has impaired mobility but performs transfers and ambulation with CGA, needed min assist for supine to sit Rehab Potential: Fair PT Snf Goals Prison Classification Counselor Goals PT Snf Goals Time Frame: Sep 21, 2022 Roll Left & Right (QC): 6 Sit to Lying (QC): 6 Lying-Sitting on Side/Bed(QC): 6 Sit to Stand (QC): 4 (SBA) Chair/Gpo-sw-Chjqr Xfer(QC): 4 (SBA) Walk 10 feet (QC): 4 (SBA) Walk 50ft with 2 Turns (QC): 4 (SBA) PT Plan Problem List Problem List: Activity Tolerance, Functional Strength, Safety, Balance, Gait, Transfer, Bed Mobility, ROM Treatment/Plan Treatment Plan: Continue Plan of Care Treatment Plan: Bed Mobility, Education, Functional Activity Kim, Functional Strength, Gait, Safety, Therapeutic Exercise, Transfers Treatment Duration: Sep 21, 2022 Frequency: 11 times per week Estimated Hrs Per Day: .25 hour per day Patient and/or Family Agrees t: Yes Safety Risks/Education Patient Education: Gait Training, Transfer Techniques, Correct Positioning, Safety Issues Teaching Recipient: Patient Teaching Methods: Demonstration, Discussion Response to Teaching: Reinforcement Needed Discharge Recommendations Plan Patient will perform bed mobility and transfer training, balance and endurance training, functional strengthening, stair training, gait training, and education, to improve functional mobility and independence at home. Therapy Discharge Recommendati: Home & Family, Post Acute PT Time Time In: 1100 Time Out: 1112 DATE: Sep 14, 2022 Total Billed Treatment Time: 12 Total Billed Treatment 1 visit AYDIN PONCE PT Sep 14, 2022 14:23
[2022-09-14] MEDS ORDERED: FLUT1BLS9 INH (15:05)
[2022-09-14] MEDS ORDERED: DIPH25CA79 PO (15:05)
[2022-09-14] MEDS ORDERED: ACET-2267 PO (15:05)
[2022-09-14] MEDS ORDERED: LOSA100T3 PO (15:05)
[2022-09-14] MEDS ORDERED: POLY17PO6 PO (15:05)
[2022-09-14] MEDS: ASPIRIN E.C. 81 MG (ECOTRIN) TAB PO SCH (19:00)
[2022-09-15 00:20] VITALS: BP 111/77
[2022-09-15 03:59] VITALS: BP 129/65
[2022-09-15 05:47] LABS: HEMATOCRIT 33 % (40-54); HEMOGLOBIN 10.8 g/dL (13.3-17.7); MEAN CORPUSCULAR HEMOGLOBIN 29 pg (25-34); MEAN CORPUSCULAR HGB CONC 32 g/dL (32-36); MEAN CORPUSCULAR VOLUME 88 fL (80-99); MEAN PLATELET VOLUME 9.9 fL (9.0-12.2); PLATELET COUNT 138 10^3/uL (130-400); WHITE BLOOD COUNT 10.8 10^3/uL (4.3-11.0)
[2022-09-15] MEDS ORDERED: methylPREDNISolone 125 MG (Solu-MEDROL) VIAL IVP NR (06:00)
[2022-09-15 06:07] LABS: POTASSIUM 4.3 MMOL/L (3.6-5.0)
[2022-09-15 06:08] LABS: CALCIUM 8.8 MG/DL (8.5-10.1)
[2022-09-15 06:09] LABS: TOTAL PROTEIN 5.2 GM/DL (6.4-8.2)
[2022-09-15 06:11] LABS: BILIRUBIN,TOTAL 0.4 MG/DL (0.1-1.0)
[2022-09-15 06:13] LABS: CREATININE SERUM 0.74 MG/DL (0.60-1.30)
[2022-09-15] MEDS ORDERED: predniSONE 10 MG TAB PO SCH (07:00)
--- NOTE | 2022-09-15 07:45 | Progress Note ---
Subjective Subjective see dc summary Review of Systems Musculoskeletal: leg pain All Other Systems Reviewed All Other Systems Reviewed: Yes Objective Exam Vital Signs Vital Signs Date Time Temp Pulse Resp B/P (MAP) Pulse Ox O2 Delivery O2 Flow Rate FiO2 09/15/22 03:59 37.3 66 16 129/65 (86) 97 NIV CPAP 09/15/22 01:00 50 09/15/22 00:20 36.3 61 16 111/77 (88) 96 NIV CPAP 09/14/22 20:15 36.2 58 16 110/66 (81) 95 Nasal Cannula 2.00 09/14/22 19:45 Room Air 09/14/22 19:02 60 09/14/22 18:55 95 Nasal Cannula 2.00 09/14/22 16:34 36.6 76 16 117/66 (83) 95 Nasal Cannula 2.00 09/14/22 11:34 36.3 63 16 142/78 (99) 88 Room Air 09/14/22 10:40 Room Air 09/14/22 10:30 36.4 16 140/81 (100) 100 Room Air 09/14/22 10:25 Face Tent 4.00 09/14/22 10:20 20 149/91 (110) 99 Face Tent 4.00 09/14/22 10:10 Face Tent 10 09/14/22 10:10 16 144/97 (113) 100 Face Tent 10 09/14/22 10:00 10 130/81 (97) 96 Face Tent 10 09/14/22 09:55 Face Tent 10 09/14/22 09:50 12 114/70 (85) 95 Face Tent 10 09/14/22 09:39 37.2 14 107/63 (78) 96 Face Tent 10 09/14/22 09:39 Face Tent 10 09/14/22 08:15 36.0 58 18 114/58 (76) 92 Room Air 09/14/22 08:00 Room Air I & O 09/15/22 07:00 Intake Total 1670 ml Output Total 1180 ml Balance 490 ml General Appearance: No Apparent Distress (groggy post-op), WD/WN HEENT: PERRL/EOMI Respiratory: Chest Non Tender, Lungs Clear, Normal Breath Sounds, No Accessory Muscle Use, No Respiratory Distress Cardiovascular: Regular Rate, Rhythm Gastrointestinal: Non Tender, Soft Rectal: Deferred Back: Other (pt lying down post-op unable to eval) Extremity: Other (right hip with operative dressing in place, + pedal pulses) Neurologic/Psychiatric: Alert (slightly groggy post-operatively, oriented to person, place, not time); No Depressed Affect, No Facial Droop Skin: Normal Color, Warm/Dry, Other (approximately 3 x 3 cm rounded wound on scalp with granulation tissue at surgical edges, with thick yellow slough in center of the wound with drying out of the center of the sough starting to form a leathery surface) Results Lab Laboratory Tests 09/15/22 05:25: White Blood Count 10.8, Red Blood Count 3.79L, Hemoglobin 10.8L, Hematocrit 33L, Mean Corpuscular Volume 88, Mean Corpuscular Hemoglobin 29, Mean Corpuscular Hemoglobin Concent 32, Red Cell Distribution Width 13.9, Platelet Count 138, Mean Platelet Volume 9.9, Sodium Level 137, Potassium Level 4.3, Chloride Level 105, Carbon Dioxide Level 23, Anion Gap 9, Blood Urea Nitrogen 27H, Creatinine 0.74, Estimat Glomerular Filtration Rate 90, BUN/Creatinine Ratio 36, Glucose Level 123H, Calcium Level 8.8, Corrected Calcium 9.6, Total Bilirubin 0.4, Aspartate Amino Transf (AST/SGOT) 18, Alanine Aminotransferase (ALT/SGPT) 20, Alkaline Phosphatase 36L, Total Protein 5.2L, Albumin 3.0L Microbiology 09/14/22 MRSA Screen - Preliminary, Resulted MRSA not isolated Assessment/Plan Assessment/Plan Admission Dx Right Valgus Impacted Femoral Neck Fracture Falling episode at home Chronic weakness Chronic back pain Chronic pain pump in place Polymyalgia rheumatica Chronic steroid therapy Hypertension Sleep apnea Admission Dx Right Valgus Impacted Femoral Neck Fracture Falling episode at home Chronic weakness Chronic back pain Chronic pain pump in place Polymyalgia rheumatica Chronic steroid therapy Hypertension Sleep apnea Clinical Quality Measures Admission Status Admission Dx Right Valgus Impacted Femoral Neck Fracture Falling episode at home Chronic weakness Chronic back pain Chronic pain pump in place Polymyalgia rheumatica Chronic steroid therapy Hypertension Sleep apnea JAMISON BILLY MD Sep 15, 2022 07:45
[2022-09-15] MEDS: ASPIRIN E.C. 81 MG (ECOTRIN) TAB PO SCH (08:11)
[2022-09-15 08:41] VITALS: BP 143/73
--- NOTE | 2022-09-15 08:58 | Physical Therapy Daily Note ---
PT Daily Note-Current Subjective Patient sitting EOB pre tx, agrees to PT, has 5/10 pain in right hip. Pain Section J - Health Conditions 1. Rarely or not at all 2. Occasionally 3. Frequently 4. Almost constantly 8. Unable to answer Pain Effect on Sleep: 2 Pain Interference with Therapy: 2 Pain Interference w/Day-to-Day: 2 Appearance Patient sitting EOB post tx (per patient request, he likes the extra height of the bed vs the recliner), has nurse call, phone, tray, all needs met. Mental Status Patient Orientation: Person, Place, Situation Transfers SCALE: Activities may be completed with or without assistive devices. 1-Zbxvyviuxl-dkcacws completes the activity by him/herself with no assistance from a helper. 5-Set-up or Clean-up Assistance-helper sets up or cleans up; patient completes activity. [place] assists only prior to or following the activity. 4-Supervision or Touching Assistance-helper provides verbal cues and/or touching/steadying and/or contact guard assistance as patient completes activity. Assistance may be provided throughout the activity or intermittently. 3-Partial/Moderate Assistance-helper does LESS THAN HALF the effort. [place] lifts, holds or supports trunk or limbs, but provides less than half the effort. 2-Substantial/Maximal Assistance-helper does MORE THAN HALF the effort. [place] lifts or holds trunk or limbs and provides more than half the effort. 7-Qwuyblwbt-avmamh does ALL the effort. Patient does none of the effort to complete the activity. Or, the assistance of 2 or more helpers is required for the patient to complete the activity. If activity was not attempted, code reason: 7-Patient Refused. 9-Not Applicable-not attempted and the patient did not perform the activity before the current illness, exacerbation or injury. 10-Not Attempted due to Environmental Limitations-(lack of equipment, weather restraints, etc.). 88-Not Attempted due to Medical Conditions or Safety Concerns. Sit to Stand (QC): 4 Chair/Gjk-an-Nnwgc Xfer(QC): 4 CGA, reminders on partial weight bearing on right leg, he was compliant with that Weight Bearing Right Lower Extremity: Right Partial Weight Bearing (30-50#) Left Lower Extremity: Left Full Weight Bearing touchdown 30 to 50 pounds Gait Training Distance: 100' Walk 10 feet (QC): 4 Walk 50 ft with 2 Turns(QC): 4 Gait Persons Needed: 1 Gait Assistive Device: FWW CGA, slow, slightly antalgic, compliant with PWB on the right leg Exercises Seated Therapy Exercises: Ankle pumps, Long arc quads Seated Reps: 20 Treatments transfers, ambulation, LE ROM Assessment Current Status: Fair Progress improving endurance PT Lip Reading Teacher Goals Residential Goals PT Residential Goals Time Frame: Sep 21, 2022 Roll Left & Right (QC): 6 Sit to Lying (QC): 6 Lying-Sitting on Side/Bed(QC): 6 Sit to Stand (QC): 4 (SBA) Chair/Odx-na-Pubjh Xfer(QC): 4 (SBA) Walk 10 feet (QC): 4 (SBA) Walk 50ft with 2 Turns (QC): 4 (SBA) PT Plan Problem List Problem List: Activity Tolerance, Functional Strength, Safety, Balance, Gait, Transfer, Bed Mobility, ROM Treatment/Plan Treatment Plan: Continue Plan of Care Treatment Plan: Bed Mobility, Education, Functional Activity Kim, Functional Strength, Gait, Safety, Therapeutic Exercise, Transfers Treatment Duration: Sep 21, 2022 Frequency: 11 times per week Estimated Hrs Per Day: .25 hour per day Patient and/or Family Agrees t: Yes Safety Risks/Education Patient Education: Gait Training, Transfer Techniques, Reviewed Precautions, Correct Positioning, Safety Issues Teaching Recipient: Patient Teaching Methods: Demonstration, Discussion Response to Teaching: Reinforcement Needed Time Time In: 820 Time Out: 830 DATE: Sep 15, 2022 Total Billed Treatment Time: 10 Total Billed Treatment 1 visit FA AYDIN PARISI PT Sep 15, 2022 08:58
[2022-09-15] MEDS ORDERED: PANTOPRAZOLE 40 MG (PROTONIX) TAB PO SCH (09:00)
[2022-09-15] MEDS ORDERED: ENOXAPARIN 40 MG/0.4 ML (LOVENOX) SYR SQ SCH (09:00)
[2022-09-15] MEDS ORDERED: PHARMACY TO DOSE SQ SCH (09:00)
--- NOTE | 2022-09-15 09:37 | Discharge Summary ---
Diagnosis/Chief Complaint Date of Admission Sep 14, 2022 at 01:15 Date of Discharge 09/15/22 Discharge Date: Sep 15, 2022 Discharge Time: 09:40 Admission Diagnosis Admission Diagnosis Right Valgus Impacted Femoral Neck Fracture Falling episode at home Chronic weakness Chronic back pain Chronic pain pump in place Polymyalgia rheumatica Chronic steroid therapy Hypertension Sleep apnea Discharge Diagnosis Right Valgus Impacted Femoral Neck Fracture post op surgical fixation with 3 pin s Falling episode at home Chronic weakness Chronic back pain Chronic pain pump in place Polymyalgia rheumatica Chronic steroid therapy Hypertension Sleep apnea Ulceration of scalp post MOHS surgery Reason Hospital Visit Pt is an 82 y/o male who is known to me from clinic. Jorge's gave the history as he was in surgery and groggy from recovery. The patient's spouse reports that he fell in the bathroom and he hit his hip when he fell. He was ambulating with increasing pain and eventually his convinced him to go to the ER where they found an impacted fracture of the right hip. Discharge Summary Procedures: surgical repair of right hip fx Consultations Dr. Cook - orthopedic surgeon Discharge Physical Examination Allergies: Coded Allergies: No Known Drug Allergies (Verified , 08/14/18) Vitals & I&Os Vital Signs Date Time Temp Pulse Resp B/P (MAP) Pulse Ox O2 Delivery O2 Flow Rate FiO2 09/15/22 08:41 36.6 73 19 143/73 (96) 92 Room Air 09/14/22 20:15 2.00 Hospital Course Was the Problem List Reviewed?: Yes Right Valgus Impacted Femoral Neck Fracture Falling episode at home Chronic weakness Chronic back pain Chronic pain pump in place Polymyalgia rheumatica Chronic steroid therapy Hypertension Sleep apnea Ulceration of scalp post MOHS surgery Right Valgus Impacted Femoral Neck Fracture due to Falling episode at home - post op day#1 - right hip surgical fixation with pinning - defer the patient's therapy orders to Dr. Cook - discharge to IRF today for strengthening prior to DC to home. - Pt discharged fro inpaient to IRF after less than 2 midnights since he will continue to be in the hospital on the inpatient rehab unit. - If the plan was dc to home, he would have needed at lest 1-2 moredays in the hospital prior to dc. Chronic weakness with Chronic back pain and Chronic pain pump in place - pt will continue with his pain pump as well as oral and prn iv pain medication for acute episodes of pain from hip fx. Polymyalgia rheumatica with Chronic steroid therapy - give stress dose of steroid today and dose of steroid IV for 09/15/22 and resumption of Chronic oral steroid therapy. Hypertension - restart home regimen Sleep apnea - started home cpap therapy Ulceration of scalp post-op surgery - consult to wound care, will continue with recommendations for washing and use of vaseline gauze dvt prophylaxis with scd's and lovenox gi prophylaxis with ppi therapy Pending Labs Laboratory Tests 09/15/22 05:25: White Blood Count 10.8, Red Blood Count 3.79, Hemoglobin 10.8, Hematocrit 33, Mean Corpuscular Volume 88, Mean Corpuscular Hemoglobin 29, Mean Corpuscular Hemoglobin Concent 32, Red Cell Distribution Width 13.9, Platelet Count 138, M jenifer Platelet Volume 9.9, Sodium Level 137, Potassium Level 4.3, Chloride Level 105, Carbon Dioxide Level 23, Anion Gap 9, Blood Urea Nitrogen 27, Creatinine 0.74, Estimat Glomerular Filtration Rate 90, BUN/Creatinine Ratio 36, Glucose Level 123, Calcium Level 8.8, Corrected Calcium 9.6, Total Bilirubin 0.4, Aspartate Amino Transf (AST/SGOT) 18, Alanine Aminotransferase (ALT/SGPT) 20, Alkaline Phosphatase 36, Total Protein 5.2, Albumin 3.0 Discharge Condition at discharge improving - will require irf for therapy Instructions to patient/family Please see electronic discharge instructions given to patient. Discharge Medications Reviewed and agree with Discharge Medication list on patient's Discharge Instruction sheet JAMISON BILLY MD Sep 15, 2022 09:37
--- NOTE | 2022-09-15 09:42 | Discharge Inst-Simple/Standard ---
Discharge Inst-Standard Reconcile Patient Problems Problems Reviewed?: Yes Discharge Medications New, Converted or Re-Newed RX: Other Patient Instructions/Follow Up Plan of Care/Instructions/FU: discharge to inpatient rehab Activity as Tolerated: Yes Discharge Diet: Regular Diet JAMISON BILLY MD Sep 15, 2022 09:42
[2022-09-15 10:57] VITALS: BP 143/73
== END 2022-09-15 11:01 | DRG 481 ==
LOC: EDUNIT# 23:32 → ER 23:35 → 4TH 09-14 01:15
PROVIDERS: ADMIT Family Medicine; ATTEND Family Medicine
PROC: 0QS634Z Reposition Right Upper Femur with Internal Fixation Device, Percutaneous Approach (ICD-10-PCS; principal; 2022-09-14 08:18)
PROC: 5A09357 Assistance with Respiratory Ventilation, Less than 24 Consecutive Hours, Continuous Positive Airway Pressure (ICD-10-PCS; 2022-09-15)
DX: S72.091A Other fracture of head and neck of right femur, initial encounter for closed fracture (principal); E46 Unspecified protein-calorie malnutrition; I48.92 Unspecified atrial flutter; W18.30XA Fall on same level, unspecified, initial encounter; Y92.009 Unspecified place in unspecified non-institutional (private) residence as the place of occurrence of the external cause; R53.1 Weakness; G89.29 Other chronic pain; M54.9 Dorsalgia, unspecified; M35.3 Polymyalgia rheumatica; I10 Essential (primary) hypertension; G47.33 Obstructive sleep apnea (adult) (pediatric); E78.00 Pure hypercholesterolemia, unspecified; K57.90 Diverticulosis of intestine, part unspecified, without perforation or abscess without bleeding; M19.90 Unspecified osteoarthritis, unspecified site; M41.9 Scoliosis, unspecified; Z85.828 Personal history of other malignant neoplasm of skin; Z85.46 Personal history of malignant neoplasm of prostate; Z85.51 Personal history of malignant neoplasm of bladder; Z87.891 Personal history of nicotine dependence; Z90.79 Acquired absence of other genital organ(s); Z68.26 Body mass index [BMI] 26.0-26.9, adult
CPT/HCPCS: 36415; 71045; 72170; 74176; 76000; 80053; 85025; 85027; 87081

== ENCOUNTER 2022-09-15 09:33 | Inpatient (IN) | payer MEDICARE ==
[~2022-09-15] VITALS: Ht 187.9 cm; Wt 93.5 kg
[~2022-09-15 09:33] MED LIST changes: +ACET-2267 PO; +DIPH25CA79 PO; +FLUT1BLS9 INH; +LOSA100T3 PO; +POLY17PO6 PO
[2022-09-15 10:45] VITALS: BP 160/79
--- NOTE | 2022-09-15 11:11 | Physical Therapy Evaluation ---
PT Evaluation-General Medical Diagnosis Admission Date Medical Diagnosis: right hip surgical fixation with pinning Onset Date: Sep 14, 2022 Therapy Diagnosis Therapy Diagnosis: impaired mobility Height/Weight Height (Feet): 6 Height (Inches): 3.00 Weight (Pounds): 210 Weight (Ounces): 0.0 Weight Bear Status Right Lower Extremity: Right Partial Weight Bearing (30-50#) Referral Physician: Marina Cotter DO Reason for Referral: Evaluation/Treatment Medical History Pertinent Medical History: HTN Additional Medical History Surgeries Yes (ROBOTIC PROSTATECTOMY (MRSA POST-OP 2009);CARDIAC ABLATION;SKIN CA REMOVAL) Cardiac, Gallbladder, Prostatectomy Respiratory Yes (ASTHMA) Currently Using CPAP: Yes Currently Using BIPAP: No Cardiovascular Yes (HX A FLUTTER-HEART ABALATION SEVERAL YRS AGO)) High Cholesterol, Hypertension Neurological No Reproductive System Hx Reproductive Disorders: No Sexually Transmitted Disease: No HIV/AIDS: No Genitourinary Yes (PROSTATE CANCER) Prostate Problems, Kidney Stones Gastrointestinal Yes Diverticulosis Musculoskeletal Yes (AUTO-IMMUNE CONNECTIVE TISSUE DISORDER;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) Degenerate Disk Disease, Arthritis, Scoliosis, Chronic Back Pain Endocrine History of Endocrine Disorders: No HEENT History of HEENT Disorders: No Loss of Vision: Denies Hearing Impairment: Denies Cancer Yes Bladder, Prostate, Skin Did You Recieve Any Treatments: Yes Type of Treatment: Surgical Intervention Cancer Comment: PAST MEDICAL HISTORY: Autoimmune connective tissue disorder, history of atrial fibrillation, history of prostate cancer, asthma, sleep apnea and nephrolithiasis. PAST SURGICAL HISTORY: Robotic-assisted prostatectomy, cardiac ablation, open cholecystectomy. Psychosocial History of Psychiatric Problem: No Integumentary History of Skin or Integumenta: Yes (SKIN CANCER) Blood Transfusions History of Blood Disorders: No Adverse Reaction to a Blood Tr: No Reviewed History: Yes Social History Current Living Status: Spouse Entry Into Home: Stairs With Railing PT Steps Into Home: 2 Prior Prior Level of Function SCALE: Activities may be completed with or without assistive devices. 2-Ckqoubaiyy-uqzuqwy completes the activity by him/herself with no assistance from a helper. 5-Set-up or Clean-up Assistance-helper sets up or cleans up; patient completes activity. [place] assists only prior to or following the activity. 4-Supervision or Touching Assistance-helper provides verbal cues and/or touching/steadying and/or contact guard assistance as patient completes activity. Assistance may be provided throughout the activity or intermittently. 3-Partial/Moderate Assistance-helper does LESS THAN HALF the effort. [place] lifts, holds or supports trunk or limbs, but provides less than half the effort. 2-Substantial/Maximal Assistance-helper does MORE THAN HALF the effort. [place] lifts or holds trunk or limbs and provides more than half the effort. 6-Xelxmxbok-ougxtd does ALL the effort. Patient does none of the effort to comp lete the activity. Or, the assistance of 2 or more helpers is required for the patient to complete the activity. If activity was not attempted, code reason: 7-Patient Refused. 9-Not Applicable-not attempted and the patient did not perform the activity before the current illness, exacerbation or injury. 10-Not Attempted due to Environmental Limitations-(lack of equipment, weather restraints, etc.). 88-Not Attempted due to Medical Conditions or Safety Concerns. Bed Mobility: 6 Transfers (B,C,W/C): 6 Gait: 6 Stairs: 6 Indoor Mobility (Ambulation): Independent Stairs: Independent PT Evaluation-Current Subjective Patient in recliner pre tx, agrees to PT, has 5/10 pain in right hip. Pain Section J - Health Conditions 1. Rarely or not at all 2. Occasionally 3. Frequently 4. Almost constantly 8. Unable to answer Pain Effect on Sleep: 2 Pain Interference with Therapy: 2 Pain Interference w/Day-to-Day: 2 Pt/Family Goals to be independent at home Objective Patient Orientation: Person, Place, Situation Integumentary/Posture Integumentary see nursing notes, patient has a wound on the top of his head Sensory Vision: Wears Glasses Hearing: Functional Sensation Right Lower Extremit: Intact Sensation Left Lower Extremity: Intact Transfers Roll Left & Right (QC): 4 Sit to Lying (QC): 3 Lying to Sitting/Side of Bed(Q: 3 Sit to Stand (QC): 4 Chair/Myw-rf-Hhoup Xfer(QC): 4 Toilet Transfer (QC): 4 Car Transfer (QC): 4 Patient performs rolling with SBA, supine <-> sit min assist, sit <-> stand and transfers CGA, car transfer CGA. Patient needs occasional cues for hand placement and safety, occasional reminders to maintain PWB on the right leg. Gait Does the Patient Walk?: Yes Mode of Locomotion: Walk Anticipated Mode of Locomotion: Walk Walk 10 feet (QC): 4 Walk 50 ft with 2 Turns(QC): 4 Walk 150 ft (QC): 88 Walking 10ft/uneven surface-QC: 4 Distance: 100' Gait Assistive Device: FWW Comments/Gait Description Patient can ambulate 100' with a rolling walker with CGA (including 50' with at least 2 turns of 90 degrees and 10' over an uneven surface. Occasional cues to maintain PWB on the right leg. Wheelchair Training Wheel 50 ft with 2 turns (QC): 9 Wheel 150 ft (QC): 9 Stairs #of Steps: 1 1 Step (curb) (QC): 4 4 Steps (QC): 88 12 Steps (QC): 88 Walking Assistive Device: Walker Patient can go up and down 1 step using a rolling walker with CGA, cues for foot placement. Balance Sitting Static: Normal Sitting Dynamic: Normal Standing Static: Good Standing Dynamic: Fair Picking up an Object (QC): 4 (CGA using a agricultural extension educator) Assessment/Needs Patient in common area of rehab post tx to continue with group therapy. Patient has impaired mobility, needs assist with supine <-> sit but CGA for transfers and ambulation. Rehab Potential: Fair PT Short Term Goals Short Term Goals Time Frame: Sep 22, 2022 Sit to lyin (SBA) Lying to sitting on side of be: 4 (SBA) Sit to stand: 4 (SBA) Chair/wbh-wt-fvebq transfer: 4 (SBA) Walk 10 feet: 4 (SBA) Walk 50 feet with two turns: 4 (SBA) Walk 150 feet: 4 (SBA) PT Platform Consultant Goals Retirement Goals PT Retirement Goals Time Frame: Sep 29, 2022 Roll Left to Right (QC): 6 Sit to Lying (QC): 6 Lying-Sitting on Side/Bed(QC): 6 Sit to Stand (QC): 6 Chair/Yhq-nv-Zdxht Xfer(QC): 6 Toilet/Commode Transfer (QC): 6 Car Transfer (QC): 6 Walk 10 feet (QC): 6 Walk 10ft-Uneven Surface(QC): 6 Walk 50ft with 2 Turns (QC): 6 Walk 150 ft (QC): 6 Wheel 50 feet with 2 turns (QC: 9 Wheel 150 feet: 9 1 Step (curb) (QC): 4 4 Steps (QC): 4 12 Steps (QC): 88 Picking up an Object (QC): 6 (using agricultural extension educator) PT Plan Problem List Problem List: Activity Tolerance, Functional Strength, Safety, Balance, Gait, Transfer, Bed Mobility, ROM Treatment/Plan Treatment Plan: Continue Plan of Care Treatment Plan: Bed Mobility, Education, Functional Activity Kim, Functional Strength, Group Therapy, Gait, Safety, Therapeutic Exercise, Transfers Treatment Duration: Sep 29, 2022 Frequency: At least 5 of 7 days/Wk (IRF) Estimated Hrs Per Day: 1.5 hours per day Patient and/or Family Agrees t: Yes Safety Risks/Education Patient Education: Gait Training, Transfer Techniques, Steps, Reviewed Precautions, Correct Positioning, Safety Issues Teaching Recipient: Patient Teaching Methods: Demonstration, Discussion Response to Teaching: Reinforcement Needed Discharge Recommendations Plan Patient will perform bed mobility and transfer training, balance and endurance training ,functional strengthening, stair training, gait training, and education, to improve functional mobility and independence at home. Therapy Discharge Recommendati: Home & Family, Post Acute PT Time Time In: 1045 Time Out: 1100 DATE: Sep 15, 2022 Total Billed Treatment Time: 15 Total Billed Treatment 1 visit EVL 15' AYDIN KHAN PT Sep 15, 2022 11:11
--- NOTE | 2022-09-15 11:12 | PM&R Post Admission Assessment ---
PM&R Date of Visit: Sep 15, 2022 Time of Visit: 12:00 History of Present Illness Chief complaint: Debility following right hip fracture HPI: This is an 82-year-old white male clinic patient of Dr. Hussein who presents to ARU in need of recovery following right hip fracture status post repair by Dr. Cook. Patient is in good spirits and he reports he is voiding well and his bowels are already moving. Pain is pretty well controlled. at the bedside. Prior level of functioning was independent without use of assistive devices. We will initiate aggressive therapy. Past Qqakgdz-Gcwlpo-Bhzzor Hx Past Med/Social Hx: Reviewed Nursing Past Med/Soc Hx, Reviewed and Corrections made Patient Social History Marrital Status: Employed/Student: retired Alcohol Use: Denies Use Smoking Status: Never a Smoker 2nd Hand Smoke Exposure: No Recent Hopitalizations: No (OUT 08/10/18) Immunizations Up To Date Tetanus Booster (TDap): Unknown Pediatric: Yes Date of Pneumonia Vaccine: Jul 15, 2016 Date of Influenza Vaccine: Jul 29, 2018 Seasonal Allergies Seasonal Allergies: Yes Past Medical History Surgeries: Cardiac, Gallbladder, Prostatectomy Respiratory: Sleep Apnea Currently Using CPAP: Yes Currently Using BIPAP: No Cardiac: High Cholesterol, Hypertension Reproductive: No Sexually Transmitted Disease: No HIV/AIDS: No Genitourinary: Prostate Problems, Kidney Stones Gastrointestinal: Diverticulosis Musculoskeletal: Degenerate Disk Disease, Arthritis, Scoliosis, Chronic Back Pain Loss of Vision: Denies Hearing Impairment: Denies Cancer: Bladder, Prostate, Skin Did You Recieve Any Treatments: Yes What Type of Treatment Did You: Surgical Intervention History of Blood Disorders: No Adverse Reaction to Blood [place]: No Family History Dementia 19 MOTHER FH: lung cancer 19 FATHER Heart Disease, Cancer, Hypertension, Lung Disease, Other Conditions/Hx PM&R Allergy/Meds/Data Review Allergies Coded Allergies: No Known Drug Allergies (Verified , 08/14/18) Home Medications Scheduled Diphenhydramine HCl (Benadryl), 50 MG PO HS, (Reported) Fluticasone Propion/Salmeterol (Wixela 250-50 Inhub), 1 PUFF INH DAILY, (Reported) Losartan Potassium (Cozaar), 100 MG PO DAILY, (Reported) Polyethylene Glycol 3350 (Miralax), 17 GM PO DAILY, (Reported) Prednisone (Prednisone), 10 MG PO DAILY, (Reported) Scheduled PRN Acetaminophen (Tylenol Extra Strength), 1,000 MG PO Q8H PRN for PAIN-MILD (1-4), (Reported) Albuterol Sulfate (Ventolin Hfa), 2 PUFF INH Q4H PRN for SHORTNESS OF BREATH, (Reported) Discontinued Medications Fluticasone/Salmeterol (Advair 250-50 Diskus), 1 PUFF IH DAILY, (Reported) Discontinued Reason: No Longer Taking Hydrocodone Bit/Acetaminophen (HYDROcodone/APAP 10/325 TABLET), 1 TAB PO QID PRN for PAIN-MILD, (Reported) Discontinued Reason: No Longer Taking Hydrocodone Bit/Acetaminophen (Lortab 7.5 Mg Tablet), 1 EACH PO Q4H PRN for PAIN-MODERATE Discontinued Reason: No Longer Taking Metoclopramide HCl (Reglan), 5 MG PO QIDACHS Olmesartan Medoxomil (Olmesartan Medoxomil), 20 MG PO DAILY, (Reported) Discontinued Reason: No Longer Taking Ondansetron (Ondansetron Odt), 4 MG PO Q6H PRN for NAUSEA/VOMITING Discontinued Reason: No Longer Taking Current Medications Current Medications Reviewed Review of Systems Constitutional: see HPI, dizziness, malaise, weakness EENTM: no symptoms reported Respiratory: no symptoms reported Cardiovascular: no symptoms reported Gastrointestinal: no symptoms reported Genitourinary: no symptoms reported Musculoskeletal: back pain, joint pain, muscle pain, muscle stiffness, muscle cramps Skin: no symptoms reported Psychiatric/Neurological: Depressed All Other Systems Reviewed Negative Unless Noted: Yes Physical Exam Physical Exam Vital Signs Capillary Refill : Height, Weight, BMI Height: 6'3.00" Weight: 210lbs. 0.0oz. [id number]; 26.48 BMI Method:Stated General Appearance: No Apparent Distress, WD/WN, Chronically ill Eyes: Bilateral Eye Normal Inspection, Bilateral Eye PERRL HEENT: PERRL/EOMI, Normal ENT Inspection, Pharynx Normal Neck: Full Range of Motion, Normal Inspection, Non Tender, Supple, Carotid Bruit Respiratory: Chest Non Tender, Lungs Clear, Normal Breath Sounds, No Accessory Muscle Use, No Respiratory Distress Cardiovascular: Regular Rate, Rhythm, No Edema, No Gallop, No JVD, No Murmur, Normal Peripheral Pulses Gastrointestinal: Normal Bowel Sounds, No Organomegaly, No Pulsatile Mass, Non Tender, Soft Back: Normal Inspection, No CVA Tenderness, No Vertebral Tenderness Extremity: Normal Capillary Refill, Normal Inspection, Normal Range of Motion (Except right leg), Non Tender, No Calf Tenderness, No Pedal Edema Neurologic/Psychiatric: Alert, Oriented x3, No Motor/Sensory Deficits (Except right leg), Normal Mood/Affect, fire control officer II-XII Norm as Tested, Abnormal Gait, Motor Weakness (Right leg weakness) Skin: Normal Color, Warm/Dry Lymphatic: No Adenopathy PM&R Medical Assessment & Plan REHAB/MEDICAL ASSESSMENT AND PLAN: REHAB IMPAIRMENT GROUP: Right hip fracture ETIOLOGIC DIAGNOSIS: Right hip fracture The comorbidities that impact the patients function and/or functional outcome by: Advanced age, fall risk, recent Mohs surgery of scalp with wound requiring wound care, chronic pain, chronic steroid use REHAB PLAN: The patient is being admitted to our comprehensive inpatient rehabilitation facility and can tolerate the intensity of service consisting of at least: 180 minutes of therapy a day, 5 out of 7 days a week Rehab treatment will consist of: PT and OT will focus on regaining function with use of assistive devices with aggressive therapy in order to regain function and return back home to independent living The patient/family has a good understanding of our discharge process and will benefit from an interdisciplinary inpatient rehabilitation program. The patient has potential to make improvement and is in need of at least two of the following multidisciplinary therapies including but not limited to physical, occupational, speech, and prosthetics and orthotics. Additionally the patient will need services from respiratory, nutritional services, wound care, psychology, etc. (Customize this to each patient). Given the patients complex condition and risk of further medical complications, rehabilitation services cannot be safely or effectively provided at a lower level of care such as a [facility] facility. BARRIERS TO DISCHARGE: Advanced age ESTIMATED LOS: 7 days DISPOSITION: Home RELEVANT CHANGES SINCE PREADMISSION SCREENING: I have compared the patients medical and functional status at the time of the preadmission screening and there are: No changes PROGNOSIS: Fair REHABILITATION GOALS: 1.PT and OT will focus on regaining function with use of assistive devices with aggressive therapy in order to regain function and return back home to independent living All the above goals were reviewed with the patient and he/she is in agreement. By signing this document, I acknowledge that I have personally performed a full physical examination on this patient within 24 hours of admission to this inpatient rehabilitation facility and have determined the patient to be able to tolerate the above course of treatment at an intensive level for a reasonable period of time. I will be completing a detailed individualized Plan of Care for this patient by day #4 of the patients stay based upon the Preadmission Screen, the Post-Admission Evaluation, and the therapy evaluations. Admission Dx/Comorbidities: (1) Closed right hip fracture Status: Acute ICD Codes: S72.001A - Fracture of unspecified part of neck of right femur, initial encounter for closed fracture (2) Fall from standing Status: Acute ICD Codes: W19.XXXA - Unspecified fall, initial encounter (3) H/O prostatectomy Status: Chronic ICD Codes: Z90.79 - Acquired absence of other genital organ(s) (4) COPD (chronic obstructive pulmonary disease) Status: Chronic ICD Codes: J44.9 - Chronic obstructive pulmonary disease, unspecified (5) REGINE on CPAP Status: Chronic ICD Codes: G47.33 - Obstructive sleep apnea (adult) (pediatric); Z99.89 - Dependence on other enabling machines and devices (6) HTN (hypertension) Status: Chronic ICD Codes: I10 - Essential (primary) hypertension Assessment/Plan Assessment and Plan Assess & Plan/Chief Complaint Assessment: Right Valgus Impacted Femoral Neck Fracture post op surgical fixation with 3 pins Falling episode at home Chronic weakness Chronic back pain Chronic pain pump in place Polymyalgia rheumatica Chronic steroid therapy Hypertension Sleep apnea Ulceration of scalp post MOHS surgery Plan: PT and OT per protocol Pain control Supportive care Fall risk BARRON TAO DO Sep 15, 2022 11:12
[2022-09-15] MEDS ORDERED: diphenhydrAMINE 25 MG TAB (BENADRYL) PO PRN (11:15)
[2022-09-15] MEDS ORDERED: LACTULOSE SYRUP 10GM/15ML (ENULOSE) 30ML UDC PO PRN (11:15)
[2022-09-15] MEDS ORDERED: ALPRAZolam 0.25 MG (XANAX) TAB PO PRN (11:15)
[2022-09-15] MEDS ORDERED: CALCIUM CARBONATE 500 MG (TUMS) TAB.CHEW PO PRN (11:15)
[2022-09-15] MEDS ORDERED: BISACODYL 10 MG SUPP (DULCOLAX) PR PRN (11:15)
[2022-09-15] MEDS ORDERED: guaiFENesin/CODEINE (ROBITUSSIN AC) 10ML UDC PO PRN (11:15)
[2022-09-15] MEDS ORDERED: MELATONIN 3 MG TABLET PO PRN (11:15)
[2022-09-15] MEDS ORDERED: DOCUSATE SODIUM 100 MG (COLACE) CAP PO PRN (11:15)
[2022-09-15] MEDS ORDERED: FLEET ENEMA ADULT 1 EA BTL PR PRN (11:15)
[2022-09-15] MEDS ORDERED: LOPERAMIDE 2 MG (IMODIUM) TABLET PO PRN (11:15)
[2022-09-15] MEDS ORDERED: morphine INJ 4 MG/ML 1 ML (VIAL/SYRINGE) IV PRN (12:30)
--- NOTE | 2022-09-15 13:12 | ST Cognitive Linguistic Eval ---
Speech Evaluation-General Medical Diagnosis Right Hip Surgical Fixation with Pinning Onset Date: Sep 14, 2022 Therapy Diagnosis Therapy Diagnosis: Intact (Baseline) Cognition Precautions Precautions: Fall Precautions/Isolations: Fall Prevention, Standard Precautions Referral Referring Physician: Dr. Marina Cotter Reason for Referral: Evaluation/Treatment Medical History Pertinent Medical History: HTN Current History The patient was admitted to the ARU following surgical fixation and pinning of the right hip. Reviewed History: Yes Social History Current Living Status: Spouse Speech PLF-Current Status Prior Level of Function The patient denied recent concerns or challenges with his speech, language or cognition. Per patient's , the patient may be experiencing a little difficulties with his short-term memory, however, the change has occurred over the past several months. Subjective The patient was seated upright in his chair, awake and alert, upon entrance to his room by the clinician. The patient greeted the clinician appropriately and was agreeable to participation in the cognitive linguistic evaluation. The patient's spouse is present and remained in the room for the assessment. Language Eval: Auditory Comprehends Simple Yes/No Ques: Functional Indent/Objects Multiple Ramos: Functional Follows 1-Step Commands: Functional Follows General Conversations: Functional Language Eval: Verbal Language Completes Spontaneous Greeting: Functional Produces Auto, Serial Info: Functional Word Finding: Functional Requests Basic Needs: Functional States Basic Personal Info: Functional Expresses Complex Ideas: Functional Language Evaluation: Reading Follows Simple Written Direct: Functional Language Evaluation: Writing Writes to Simple Dictation: Functional Cognitive Patient Orientation The patient was independently oriented to self, location, month, day of the week, and year. Objective Cognitive Domain Attention: WNL Memory: WNL Problem Solving: Functional Visuospatial Skills: WNL Composite Severity Rating: WNL Objective Oral Motor/Speech Production The patient does not display dysarthria or apraxia of speech. The patient is 100% intelligible in known and unknown contexts. Impression The patient displays intact and baseline cognitive linguistic function. Speech-Plan Treatment Plan Speech Therapy Treatment Plan: Discontinue ST Treatment Duration: Sep 15, 2022 Frequency: 1 time per week Estimated Hrs Per Day: .5 hour per day Rehab Potential: Fair Safety Risks/Education Teaching Recipient: Patient, Significant Other Teaching Methods: Discussion Response to Teaching: Verbalize Understanding Education Topics Provided: Results, Recommendations, Plan of Care Time Speech Therapy Time In: 12:15 Speech Therapy Time Out: 12:45 DATE: Sep 15, 2022 Total Billed Time: 30 Billed Treatment Time 1, SPSNDCOMP, BATOOL PRATT Sep 15, 2022 13:11
--- NOTE | 2022-09-15 13:20 | Therapy Group Daily Note ---
Therapy Daily Group Note Patient Education Topic Other List Below Exercises Fine Motor, UE Exercise Session Ratio (pt:therapist): Goal of Session: Education on ARU Expectations, Memory Strategies, UE/LE Strengthing Ratio 1:1 (pt:therapist) Goal Met for this Session: Yes Pt Benefit of Group: Contributions to Others, Increased Functional Strength, Improved Cognition, Recognition of Peers, Socialization Pt amb. via FWW to [facility] area for OT/PT group. Group consisted of introductions (name, place living and most interesting [place] present), socialization, B UE fine/gross motor strengthening tasks, ARU description and expectations. Pt introduced self appropriately and actively listened to peers. Pt able to complete fine and gross motor tasks with some set up. Pt then was able to complete cognitive tasks for directional cueing and memory of [place] songs. Pt acknowledged understanding of ARU topic by giving own opinions and answering questions. After group, pt lying in bed with call light/phone in reach. All needs met in room. Start Time: 11:00 Stop Time: 12:10 Total Billed Treatment Time: 70 Total Billed Treatment GRP-1 ASHLEY JOHNSON PTA Sep 15, 2022 13:20
--- NOTE | 2022-09-15 13:40 | Occupational Therapy Eval ---
OT Evaluation-General/PLF Medical Diagnosis Admission Date Sep 15, 2022 at 10:45 Medical Diagnosis: Right Hip Surgical Fixation with Pinning Onset Date: Sep 14, 2022 Therapy Diagnosis Therapy Diagnosis: n/a Height/Weight Height (Feet): 6 Height (Inches): 3.00 Weight (Pounds): 210 Weight (Ounces): 0.0 Precautions Precautions/Isolations: Fall Prevention, Standard Precautions Weight Bear Status Weight Bearing Restriction: Partial Weight Bearing 20% Referral Physician: Marina Cotter DO Referral Reason: Evaluation/Treatment Medical History Pertinent Medical History: HTN Additional Medical History Pt recently had a Mohs procedure, and pt reports that he can get head wet. Current History Pt had a fall in bathroom resulting in R hip fx. S/p im nail Per patient, he lives with his in a single story home. He was indep with adls and shares iadl responsibilities with his . Pt was not using any AD at baseline. Reviewed History: Yes Social History Home: Single Level Current Living Status: Spouse Entry Into Home: Stairs With Railing Steps Into Home: 2 ADL-Prior Level of Function SCALE: Activities may be completed with or without assistive devices. 3-Ihvcvzvsbr-jcpwpwq completes the activity by him/herself with no assistance from a helper. 5-Set-up or Clean-up Assistance-helper sets up or cleans up; patient completes activity. [place] assists only prior to or following the activity. 4-Supervision or Touching Assistance-helper provides verbal cues and/or touching/steadying and/or contact guard assistance as patient completes activity. Assistance may be provided throughout the activity or intermittently. 3-Partial/Moderate Assistance-helper does LESS THAN HALF the effort. [place] lifts, holds or supports trunk or limbs, but provides less than half the effort. 2-Substantial/Maximal Assistance-helper does MORE THAN HALF the effort. [place] lifts or holds trunk or limbs and provides more than half the effort. 3-Ehplqmnmb-wnddmu does ALL the effort. Patient does none of the effort to complete the activity. Or, the assistance of 2 or more helpers is required for the patient to complete the activity. If activity was not attempted, code reason: 7-Patient Refused. 9-Not Applicable-not attempted and the patient did not perform the activity before the current illness, exacerbation or injury. 10-Not Attempted due to Environmental Limitations-(lack of equipment, weather restraints, etc.). 88-Not Attempted due to Medical Conditions or Safety Concerns. Self Care: Independent Functional Cognition: Independent DME/Equipment: Bath Chair, Grab Bars, Shower Drive Self: Yes OT Current Status Subjective Pt denies pain, reports wanting to go home by [place]. Appearance Pt returned to sitting in recliner, all needs within reach. Mental Status/Objective Patient Orientation: Person, Place, Situation Attachments: IV Current Glasses/Contacts: Yes Hearing Aids: No Dentures/Partials: Yes (top only) Hand Dominance: Right Upper Extremity ROM WFL Upper Extremity Strength R shoulder: 3+/5 All other joints: WFL ADL-Treatment Eating (QC): 6 Oral Hygiene (QC): 6 (per patient report) Shower/Bathe Self (QC): 5 (Assist needed to cover incision) Upper Body Dressing (QC): 6 Lower Body Dressing (QC): 6 On/Off Footwear (QC): 6 Toileting Hygiene (QC): 6 Pt declined shower but was able to demonstrate ability to reach/wash all body parts with wet wipes. He doffed and re-donned all clothing independently. He denies any pain in hip. Education provided on compensatory/energy conservation strategies as pt does appear to get SOA with exertion. He appears to maintain partial weight-bearing in standing with supervision for safety only. No LOB in standing. Education provided on care of incision during bathing tasks. Education OT Patient Education: Correct positioning, Energy conservation, Modified ADL techniques, Purpose of tx/functional activities, Reviewed precautions, Rehab process Teaching Recipient: Patient, Family Teaching Methods: Demonstration, Discussion Response to Teaching: Verbalize Understanding, Return Demonstration BIMS CAM BIMS Expression of Ideas and Wants: Without Difficulty Understanding Verbal Content: Understands Brief Interview/Mental Status: Yes IRF NAT BIMS: IRF NAT BIMS Response (Comments) Value Repitition of Three Words Three 3 Recalls Socks Yes, After Cueing (Wear) 1 Recalls Blue Yes, No Cue Required 2 Recalls Bed No, Could Not Recall 0 Year Correct 3 Month Accurate Within 5 Days 2 Day Correct 1 Total 12 Should Staff Asses. Mental St.: No Notes: 09/07 CAM Mental Status Change/Baseline: 0 Inattention: 0 Disorganized thinkin Altered level of consciousness: 0 OT Short Term Goals Short Term Goals Time Frame: Sep 17, 2022 Eatin Oral hygiene: 6 Toileting hygiene: 6 Shower/bathe self: 5 Upper body dressin Lower body dressin Putting on/taking off footwear: 6 OT Half-Way Goals Certified Coatings Inspector Goals Time Frame: Sep 21, 2022 Eating (QC): 6 Oral Hygiene (QC): 6 Toileting Hygiene (QC): 6 Shower/Bathe Self (QC): 5 Upper Body Dressing (QC): 6 Lower Body Dressing (QC): 6 On/Off Footwear (QC): 6 Additional Goals: 1-Demonstrate ADL Tasks, 2-Verbalize Understanding, 3- ImproveStrength/Kim 1=Demonstrate adherence to instructed precautions during ADL tasks. 2=Patient will verbalize/demonstrate understanding of assistive devices/modifications for ADL. 3=Patient will improve strength/tolerance for activity to enable patient to perform ADL's. Anticipate short stay OT to address iadls, strengthening, endurance OT Education/Plan Problem List/Assessment Assessment: Decreased Activ Tolerance, Impaired I ADL's Discharge Recommendations Plan/Recommendations: Continue POC Therapy Discharge Recommendati: Home & Family Treatment Plan/Plan of Care Treatment,Training & Education: Yes Patient would benefit from OT for education, treatment and training to promote independence in ADL's, mobility, safety and/or upper extremity function for ADL's. Plan of Care: ADL Retraining, Functional Mobility, Group Exercise/Act as Ind, UE Funct Exercise/Act Treatment Duration: Sep 21, 2022 Frequency: At least 5 of 7 days/Wk (IRF) Estimated Hrs Per Day: 1.5 hours per day Agreement: Yes Rehab Potential: Fair Time Start Time: 12:50 Stop Time: 13:35 DATE: Sep 15, 2022 Total Time Billed (hr/min): 45 Billed Treatment Time 1 visit EVL (10 min) ADL x2 (35 min) Lisbeth Duckworth OT Sep 15, 2022 13:40
--- NOTE | 2022-09-15 14:18 | Physical Therapy Daily Note ---
PT Daily Note-Current Subjective Pt. very pleasant and cooperative. present and supportive. pt. agreeable to Rx, denies any pain, "I feel good about all this and could probably go home right now." Pain Location: No Pain Reported Section J - Health Conditions 1. Rarely or not at all 2. Occasionally 3. Frequently 4. Almost constantly 8. Unable to answer Pain Effect on Sleep: 1 Pain Interference with Therapy: 1 Pain Interference w/Day-to-Day: 1 Mental Status Patient Orientation: Normal For Age Transfers SCALE: Activities may be completed with or without assistive devices. 4-Thxykcqioh-rgtvduc completes the activity by him/herself with no assistance from a helper. 5-Set-up or Clean-up Assistance-helper sets up or cleans up; patient completes activity. [place] assists only prior to or following the activity. 4-Supervision or Touching Assistance-helper provides verbal cues and/or touching/steadying and/or contact guard assistance as patient completes activity. Assistance may be provided throughout the activity or intermittently. 3-Partial/Moderate Assistance-helper does LESS THAN HALF the effort. [place] lifts, holds or supports trunk or limbs, but provides less than half the effort. 2-Substantial/Maximal Assistance-helper does MORE THAN HALF the effort. [place] lifts or holds trunk or limbs and provides more than half the effort. 4-Nkrhrdjtk-kkbvjt does ALL the effort. Patient does none of the effort to complete the activity. Or, the assistance of 2 or more helpers is required for the patient to complete the activity. If activity was not attempted, code reason: 7-Patient Refused. 9-Not Applicable-not attempted and the patient did not perform the activity before the current illness, exacerbation or injury. 10-Not Attempted due to Environmental Limitations-(lack of equipment, weather restraints, etc.). 88-Not Attempted due to Medical Conditions or Safety Concerns. Sit to Stand (QC): 4 Chair/Vyc-ox-[place] Xfer(QC): 4 [address] in safe stnd to sit to stand using hands on arms of chair Weight Bearing Right Lower Extremity: Right Partial Weight Bearing (30-50#) Gait Training Does the Patient Walk?: Yes Walk 10 feet (QC): 4 Walk 50 ft with 2 Turns(QC): 4 Walk 150 ft (QC): 4 Gait Persons Needed: 1 Gait Assistive Device: FWW this DRIVER/GUIDE helped pt. jules his left shoe and was encouraged to PWB on right by utilizing this leg length difference. Pt also needed instructed in pushing FWW instead of picking it up each step. ambulated 160 ft x 2, 100 ft x1 SBA to CGA Exercises Seated Therapy Exercises: Ankle pumps, Sit to stand, Long arc quads, Hip flexion, Hip abd/add Seated Reps: 12 Treatments TRFs, gait, therex, p in recliner with jackson at hand, present Assessment Current Status: Good Progress PT Short Term Goals Short Term Goals Time Frame: Sep 22, 2022 Sit to lyin (SBA) Lying to sitting on side of be: 4 (SBA) Sit to stand: 4 (SBA) Chair/jwt-ib-gkwtn transfer: 4 (SBA) Walk 10 feet: 4 (SBA) Walk 50 feet with two turns: 4 (SBA) Walk 150 feet: 4 (SBA) PT Mcc Goals Plug Making Operator Goals PT Mcc Goals Time Frame: Sep 29, 2022 Roll Left & Right (QC): 6 Sit to Lying (QC): 6 Lying-Sitting on Side/Bed(QC): 6 Sit to Stand (QC): 6 Chair/Kcc-aj-Ycpvw Xfer(QC): 6 Toilet Transfer (QC): 6 Car Transfer (QC): 6 Does the Patient Walk: Yes Walk 10 feet (QC): 6 Walk 50ft with 2 Turns (QC): 6 Walk 150 ft (QC): 6 Walking 10ft on Uneven Surface: 6 1 Step (curb) (QC): 4 4 Steps (QC): 4 12 Steps (QC): 88 Picking up an Object (QC): 6 (using freight elevator erector) Wheel 50 feet with 2 turns (QC: 9 Wheel 150 feet: 9 PT Plan Treatment/Plan Treatment Plan: Continue Plan of Care Treatment Plan: Bed Mobility, Education, Functional Activity Kim, Functional Strength, Group Therapy, Gait, Safety, Therapeutic Exercise, Transfers Treatment Duration: Sep 29, 2022 Frequency: At least 5 of 7 days/Wk (IRF) Estimated Hrs Per Day: 1.5 hours per day Patient and/or Family Agrees t: Yes Safety Risks/Education Patient Education: Gait Training, Transfer Techniques, Reviewed Precautions, Correct Positioning, Disease Process, Safety Issues Teaching Recipient: Patient Teaching Methods: Demonstration, Discussion Response to Teaching: Verbalize Understanding, Return Demonstration, Reinforcement Needed Time Time In: 1340 Time Out: 1405 DATE: Sep 15, 2022 Total Billed Treatment Time: 25 Total Billed Treatment 1,GT15m,EX10m ZOYA BRIGHT DRIVER/GUIDE Sep 15, 2022 14:18
[2022-09-15] MEDS: ACETAMINOPHEN 325 MG TABLET PO PRN (16:13)
[2022-09-15] MEDS: ASPIRIN E.C. 81 MG (ECOTRIN) TAB PO SCH (18:08)
[2022-09-15 19:38] VITALS: BP 123/68
[2022-09-15] MEDS: SENNA W/DOCUSATE (SENOKOT S) TABLET PO SCH (20:31)
[2022-09-15] MEDS: DOCUSATE SODIUM 100 MG (COLACE) CAP PO SCH (20:31)
[2022-09-15] MEDS: polyethylene glycoL POWDER 17 GM (MIRALAX) PACK PO SCH (20:32)
[2022-09-16] MEDS: predniSONE 10 MG TAB PO SCH (06:07)
[2022-09-16 07:12] LABS: BASOPHILS % (AUTO) 0 % (0-10); EOSINOPHILS # (AUTO) 0.1 10^3/uL (0.0-0.3); EOSINOPHILS % (AUTO) 1 % (0-10); HEMATOCRIT 32 % (40-54); HEMOGLOBIN 10.8 g/dL (13.3-17.7); LYMPHOCYTES # (AUTO) 1.1 10^3/uL (1.0-4.0); LYMPHOCYTES % (AUTO) 11 % (12-44); MEAN CORPUSCULAR HEMOGLOBIN 29 pg (25-34); MEAN CORPUSCULAR HGB CONC 33 g/dL (32-36); MEAN CORPUSCULAR VOLUME 88 fL (80-99); MEAN PLATELET VOLUME 10.2 fL (9.0-12.2); MONOCYTES # (AUTO) 0.7 10^3/uL (0.0-1.0); MONOCYTES % (AUTO) 7 % (0-12); NEUTROPHILS # (AUTO) 7.9 10^3/uL (1.8-7.8); NEUTROPHILS % (AUTO) 79 % (42-75); PLATELET COUNT 142 10^3/uL (130-400)
[2022-09-16 07:42] LABS: ALBUMIN 3.1 GM/DL (3.2-4.5); BILIRUBIN,TOTAL 0.4 MG/DL (0.1-1.0); CALCIUM 9.4 MG/DL (8.5-10.1); CREATININE SERUM 0.64 MG/DL (0.60-1.30); POTASSIUM 3.7 MMOL/L (3.6-5.0); TOTAL PROTEIN 5.5 GM/DL (6.4-8.2)
[2022-09-16 07:46] VITALS: BP 150/59
--- NOTE | 2022-09-16 08:05 | PM&R Progress Note ---
Subjective HPI/CC On Admission Date Seen by Provider: Sep 16, 2022 Time Seen by Provider: 12:30 Subjective/Events-last exam 09/16/2022: Improved status Pain is controlled at bedside Working with therapy A bit tired and nauseated today Review of Systems General: Fatigue, Malaise Musculoskeletal: leg pain Objective Exam Vital Signs Vital Signs Date Time Temp Pulse Resp B/P (MAP) Pulse Ox O2 Delivery O2 Flow Rate FiO2 09/16/22 09:28 Room Air 09/16/22 07:46 36.8 64 18 150/59 (89) 95 Capillary Refill : General Appearance: No Apparent Distress, WD/WN, Chronically ill HEENT: PERRL/EOMI, Normal ENT Inspection, Pharynx Normal Neck: Full Range of Motion, Normal Inspection, Non Tender, Supple, Carotid Bruit Respiratory: Chest Non Tender, Lungs Clear, Normal Breath Sounds, No Accessory Muscle Use, No Respiratory Distress Cardiovascular: Regular Rate, Rhythm, No Edema, No Gallop, No JVD, No Murmur, Normal Peripheral Pulses Gastrointestinal: Normal Bowel Sounds, No Organomegaly, No Pulsatile Mass, Non Tender, Soft Back: Normal Inspection, No CVA Tenderness, No Vertebral Tenderness Extremity: Normal Capillary Refill, Normal Inspection, Normal Range of Motion (Except right leg), Non Tender, No Calf Tenderness, No Pedal Edema Neurologic/Psychiatric: Alert, Oriented x3, No Motor/Sensory Deficits (Except right leg), Normal Mood/Affect, entry analyst II-XII Norm as Tested, Abnormal Gait, Motor Weakness (Right leg weakness) Skin: Normal Color, Warm/Dry Lymphatic: No Adenopathy Results/Procedures Lab Laboratory Tests 09/16/22 06:55 Patient resulted labs reviewed. FIM Transfers Therapy Code Descriptions/Definitions Functional [place] Measure: 0=Not Assessed/NA 4=Minimal Assistance 1=Total Assistance 5=Supervision or Setup 2=Maximal Assistance 6=Modified [place] 3=Moderate Assistance 7=Complete IndependenceSCALE: Activities may be completed with or without assistive devices. 2-Faisnxmjid-kvhosgs completes the activity by him/herself with no assistance from a helper. 5-Set-up or Clean-up Assistance-helper sets up or cleans up; patient completes activity. [place] assists only prior to or following the activity. 4-Supervision or Touching Assistance-helper provides verbal cues and/or touching/steadying and/or contact guard assistance as patient completes activity. Assistance may be provided throughout the activity or intermittently. 3-Partial/Moderate Assistance-helper does LESS THAN HALF the effort. [place] lifts, holds or supports trunk or limbs, but provides less than half the effort. 2-Substantial/Maximal Assistance-helper does MORE THAN HALF the effort. [place] lifts or holds trunk or limbs and provides more than half the effort. 3-Kxclymzjq-udujop does ALL the effort. Patient does none of the effort to complete the activity. Or, the assistance of 2 or more helpers is required for the patient to complete the activity. If activity was not attempted, code reason: 7-Patient Refused. 9-Not Applicable-not attempted and the patient did not perform the activity before the current illness, exacerbation or injury. 10-Not Attempted due to Environmental Limitations-(lack of equipment, weather restraints, etc.). 88-Not Attempted due to Medical Conditions or Safety Concerns. Roll Left to Right (QC): 4 Sit to Lying (QC): 3 Sit to Stand (QC): 4 Chair/Mgn-mh-Qvhjy Xfer(QC): 4 Car Transfer (QC): 4 Gait Training Does the Patient Walk?: Yes Walk 10 feet (QC): 4 Walk 50 ft with 2 Turns(QC): 4 Walk 150 ft (QC): 4 Walking 10ft/uneven surface-QC: 4 Gait Persons Needed: 1 Gait Assistive Device: FWW Wheelchair Training Wheel 50 ft with 2 turns (QC): 9 Wheel 150 ft (QC): 9 Stair Training #of Steps: 1 1 Step (curb) (QC): 4 4 Steps (QC): 88 12 Steps (QC): 88 Balance Picking up an Object (QC): 4 (CGA using a marketing research intern) ADL-Treatment Eating (QC): 6 Oral Hygiene (QC): 6 (per patient report) Shower/Bathe Self (QC): 5 (Assist needed to cover incision) Upper Body Dressing (QC): 6 Lower Body Dressing (QC): 6 On/Off Footwear (QC): 6 Toileting Hygiene (QC): 6 Assessment/Plan Assessment and Plan Assess & Plan/Chief Complaint Assessment: Right Valgus Impacted Femoral Neck Fracture post op surgical fixation with 3 pins Falling episode at home Chronic weakness Chronic back pain Chronic pain pump in place Polymyalgia rheumatica Chronic steroid therapy Hypertension Sleep apnea Ulceration of scalp post MOHS surgery Plan: PT and OT per protocol Pain control Supportive care Fall risk 09/16/2022: Supportive care Pain control (1) Closed right hip fracture Status: Acute (2) Fall from standing Status: Acute (3) H/O prostatectomy Status: Chronic (4) COPD (chronic obstructive pulmonary disease) Status: Chronic (5) REGINE on CPAP Status: Chronic (6) HTN (hypertension) Status: Chronic BARRON TAO DO Sep 16, 2022 08:05
--- NOTE | 2022-09-16 08:05 | Individualized Plan of Care ---
Individualized Plan of Care Rehab Nursing IPOC Order Admission Date Sep 15, 2022 at 10:45 Current Orders Orders Admission Arrival Bed Request (09/15/22 10:56) Admission Order(Inpt,Obs,Sdc) (09/15/22 11:10) Vital Signs: Per Unit Policy ( 08,16,00 (09/15/22 11:10) Cody Thompson 09,21 (09/15/22 11:10) Sequential Compression Device (09/15/22 11:10) [place] Cleaner-Inpt Rehab Con (09/15/22 11:10) Rehab Nursing Orders-Ipoc (09/15/22 11:10) Physical Therapy Rehab Orders (09/15/22 11:10) Occupational Therapy Rehab Ord (09/15/22 11:10) Speech Therapy Rehab Orders (09/15/22 11:10) Cbc With Automated Diff (09/16/22 06:00) Comprehensive Metabolic Panel (09/16/22 06:00) Precautions (Aru) (09/15/22 11:10) Rehab-Intensity Of Therapy (09/15/22 11:10) Initiate Admission Nursing Pro .admission (09/15/22 11:10) Alprazolam Tablet (Xanax Tablet) (09/15/22 11:15) Calcium Carbonate Chew Tablet (Antacid C (09/15/22 11:15) Diphenhydramine Tablet (Benadryl Tablet) (09/15/22 11:15) Docusate Sodium Capsule (Colace Capsule) (09/15/22 21:00) Docusate Sodium Capsule (Colace Capsule) (09/15/22 11:15) Bisacodyl Suppository (Dulcolax Supposit (09/15/22 11:15) Lactulose Oral Solution (Enulose Oral So (09/15/22 11:15) Na Phos/Na Biphos Enema (Fleet Enema Lane (09/15/22 11:15) Guaifenesin/Codeine Syrup (Robitussin Ac (09/15/22 11:15) Loperamide Tablet (Imodium Tablet) (09/15/22 11:15) Melatonin Tablet (Melatonin Tablet) (09/15/22 11:15) Polyethylene Glycol Powder Pkt (Miralax (09/15/22 21:00) Ondansetron Oral Dissolve Tab (Zofran (09/15/22 11:15) Senna S Tablet (Senokot S Tablet) (09/15/22 21:00) Acetaminophen Tablet/Caplet (Tylenol T (09/15/22 11:15) Patient Visit (09/15/22 ) Pt Eval Low Complexity (09/15/22 ) General/Regular (09/15/22 Lunch) Code/Resuscitation (09/15/22 12:16) Dressing Order (Intervention) DAILY (09/15/22 12:16) Incentive Spirometry (Nursing) Q2H (09/15/22 12:16) Aspirin Enteric Coated Tablet (Ecotrin T (09/15/22 18:00) Enoxaparin Injection (Lovenox Injection) (09/16/22 09:00) Ondansetron Injection (Zofran Injectio (09/15/22 12:30) Pantoprazole Tablet (Protonix Tablet) (09/16/22 09:00) Morphine Injection (Morphine Injection (09/15/22 12:30) Oxycodone Immediate Rel Tablet (Oxyir Ta (09/15/22 12:30) Prednisone Tablet (Deltasone Tablet) (09/16/22 07:00) Cpap (Set Up) (09/15/22 12:16) Consult Orthopedic Surgery (09/15/22 12:16) Consult Wound Care Physician (09/15/22 12:16) Hypochlorous Acid/Sod Chloride (Vashe Wo (09/16/22 09:00) Dressing Order (Intervention) DAILY (09/15/22 12:23) Patient Visit (09/15/22 ) Speech Sound Lang Comp (09/15/22 ) Treat. Speech/Lang/Voice (09/15/22 ) Patient Visit (09/15/22 ) Therapeutic, Group (09/15/22 ) Patient Visit (09/15/22 ) Gait Training, Ea 15 Min (09/15/22 ) Exercise Therap, Ea 15 Min (09/15/22 ) Patient Visit (09/16/22 ) Exercise Therap, Ea 15 Min (09/16/22 ) Rehab Nursing Orders: Ongoing Assess. of Cognitive Status, Ongoing Assess. of Function Status, Bladder Management, Bladder Scan, Bladder Training, Bowel Man agement, Bowel Training, Disease Management & Educaiton, DVT Prophylaxis, Fall Prevention, Fluid/Electrolyte/Nutrition Mgmt, Infection Prevention, Medication Management & Education, Management of Risks & Complications, Management of Skin Intergrity, Nutrition Management, Pain Management, Patient/Family Support, Safety Management, Wound Management Intensity of Therapy to be met Patient to be seen: Min.3h per day/5 of 7d PT IPOC Problem List: Activity Tolerance, Functional Strength, Safety, Balance, Gait, Transfer, Bed Mobility, ROM Treatment Plan: Continue Plan of Care Bed Mobility, Education, Functional Activity Kim, Functional Strength, Group Therapy, Gait, Safety, Therapeutic Exercise, Transfers Treatment Duration: Sep 29, 2022 Frequency: At least 5 of 7 days/Wk (IRF) Estimated Hrs Per Day: 1.5 hours per day OT IPOC Problems: Decreased Activ Tolerance, Impaired I ADL's OT Treatment, Training and Edu: Yes Plan of Care: ADL Retraining, Functional Mobility, Group Exercise/Act as Ind, UE Funct Exercise/Act Treatment Duration: Sep 21, 2022 Frequency: At least 5 of 7 days/Wk (IRF) Estimated Hrs Per Day: 1.[address] IPOC Speech Therapy Treatment Plan: Discontinue ST Treatment Duration: Sep 15, 2022 Frequency: 1 time per week Estimated Hrs Per Day: .5 hour per day [place]ess[place] Cleaner/Case Mgmt [place] Cleaner/Case Managemen: Discharge Planning Dietitian/Die Inspector Dietitian/Die Inspector to monitor nutritional status and make changes and/or recommendations as needed and work with speech pathology on dietary upgrades as the occur. Physician IPOC Medical Issues being managed closely and that require the 24 hour availability of a physician: Recent hip fracture with advanced age and history of autoimmune disorders will require close monitoring for any type of decompensation while gaining stamina and independence in ADLs in order to return home. Medical Issues: Bowel/Bladder Function, DVT Prophylaxis, Falls Precautions, Fluid/Electrolyte/Nutrition Balance, Infection Protection, Pain Management, Wound Care Brief Synthesis of Preadmission Screen, Post-Admission Evaluation, and Therapy Evaluations: PT and OT will focus on regaining function with use of assistive devices in order to return back home to live independently with spouse well gaining stamina and decreasing hip pain Medical Prognosis: Good Anticipated Length of Stay: 7 days BARRON TAO DO Sep 16, 2022 08:05
[2022-09-16] MEDS: ASPIRIN E.C. 81 MG (ECOTRIN) TAB PO SCH ×2 (09:08→17:25)
[2022-09-16] MEDS: PANTOPRAZOLE 40 MG (PROTONIX) TAB PO SCH (09:08)
[2022-09-16] MEDS: ENOXAPARIN 40 MG/0.4 ML (LOVENOX) SYR SQ SCH (09:11)
[2022-09-16] MEDS: DOCUSATE SODIUM 100 MG (COLACE) CAP PO SCH ×2 (09:15→20:40)
[2022-09-16] MEDS: SENNA W/DOCUSATE (SENOKOT S) TABLET PO SCH ×2 (09:15→20:40)
[2022-09-16] MEDS: polyethylene glycoL POWDER 17 GM (MIRALAX) PACK PO SCH ×2 (09:24→20:40)
[2022-09-16] MEDS: ONDANSETRON 4 MG (ZOFRAN) ORAL DISSOLVE TAB PO PRN ×2 (09:35→20:23)
--- NOTE | 2022-09-16 13:21 | Physical Therapy Daily Note ---
PT Daily Note-Current Subjective Upon arrival, pt was seated in recliner. Pt states that he slept fine and that he has no pain. Pt agrees to PT. Pain Section J - Health Conditions 1. Rarely or not at all 2. Occasionally 3. Frequently 4. Almost constantly 8. Unable to answer Pain Effect on Sleep: 1 Pain Interference with Therapy: 1 Pain Interference w/Day-to-Day: 1 Mental Status Patient Orientation: Person, Time, Situation Transfers SCALE: Activities may be completed with or without assistive devices. 0-Hkgrstidnv-idriayw completes the activity by him/herself with no assistance from a helper. 5-Set-up or Clean-up Assistance-helper sets up or cleans up; patient completes activity. [place] assists only prior to or following the activity. 4-Supervision or Touching Assistance-helper provides verbal cues and/or touching/steadying and/or contact guard assistance as patient completes activity. Assistance may be provided throughout the activity or intermittently. 3-Partial/Moderate Assistance-helper does LESS THAN HALF the effort. [place] lifts, holds or supports trunk or limbs, but provides less than half the effort. 2-Substantial/Maximal Assistance-helper does MORE THAN HALF the effort. [place] lifts or holds trunk or limbs and provides more than half the effort. 4-Gilkbbcxe-zmxwuk does ALL the effort. Patient does none of the effort to complete the activity. Or, the assistance of 2 or more helpers is required for the patient to complete the activity. If activity was not attempted, code reason: 7-Patient Refused. 9-Not Applicable-not attempted and the patient did not perform the activity before the current illness, exacerbation or injury. 10-Not Attempted due to Environmental Limitations-(lack of equipment, weather restraints, etc.). 88-Not Attempted due to Medical Conditions or Safety Concerns. Sit to Stand (QC): 4 Pt was able to transfer from sit<-> stand, pt was CGA/SBA with transferring to ambulating. Weight Bearing Right Lower Extremity: Right Partial Weight Bearing (30-50#) Gait Training Does the Patient Walk?: Yes Distance: 155 Walk 10 feet (QC): 4 Walk 50 ft with 2 Turns(QC): 4 Walk 150 ft (QC): 4 Gait Assistive Device: FWW Pts GT was slow, and steady with a reciprocal GT pattern. Pt ambulated with PWB status. Exercises Seated Therapy Exercises: Ankle pumps (20), Long arc quads, Hip flexion Seated Reps: 15 Treatments Pt completed all activities listed above. Pt ambulated from room around 2nd floor and back to room. Pt reports R hip pain after walking, and took a seated rest break once back to room. Once PT was concluded, pt was seated in recliner with call light and tray in reach and all needs met. Assessment Current Status: Good Progress Pt would benefit from continued skilled PT to address strength and activity tolerance. PT Short Term Goals Short Term Goals Time Frame: Sep 22, 2022 Sit to lyin (SBA) Lying to sitting on side of be: 4 (SBA) Sit to stand: 4 (SBA) Chair/yht-ch-ngsol transfer: 4 (SBA) Walk 10 feet: 4 (SBA) Walk 50 feet with two turns: 4 (SBA) Walk 150 feet: 4 (SBA) PT Jail Goals Jail Goals PT Jail Goals Time Frame: Sep 29, 2022 Roll Left & Right (QC): 6 Sit to Lying (QC): 6 Lying-Sitting on Side/Bed(QC): 6 Sit to Stand (QC): 6 Chair/Awd-dg-Tkcdo Xfer(QC): 6 Toilet Transfer (QC): 6 Car Transfer (QC): 6 Does the Patient Walk: Yes Walk 10 feet (QC): 6 Walk 50ft with 2 Turns (QC): 6 Walk 150 ft (QC): 6 Walking 10ft on Uneven Surface: 6 1 Step (curb) (QC): 4 4 Steps (QC): 4 12 Steps (QC): 88 Picking up an Object (QC): 6 (using supplier quality) Wheel 50 feet with 2 turns (QC: 9 Wheel 150 feet: 9 PT Plan Problem List Problem List: Activity Tolerance, Functional Strength Treatment/Plan Treatment Plan: Continue Plan of Care Treatment Plan: Bed Mobility, Education, Functional Activity Kim, Functional Strength, Group Therapy, Gait, Safety, Therapeutic Exercise, Transfers Treatment Duration: Sep 29, 2022 Frequency: At least 5 of 7 days/Wk (IRF) Estimated Hrs Per Day: 1.5 hours per day Patient and/or Family Agrees t: Yes Safety Risks/Education Patient Education: Reviewed Precautions Teaching Recipient: Patient Teaching Methods: Discussion Response to Teaching: Verbalize Understanding Time Time In: 1002 Time Out: 1019 DATE: Sep 16, 2022 Total Billed Treatment Time: 17 Total Billed Treatment 1, Ex JOYCE CHENG PTA Sep 16, 2022 13:21
[2022-09-16] MEDS: HYPOCHLOROUS ACID/NaCl (VASHE) 250 ML IR SCH (14:30)
[2022-09-16 20:27] VITALS: BP 136/90
--- NOTE | 2022-09-17 06:13 | PM&R Progress Note ---
Subjective HPI/CC On Admission Date Seen by Provider: Sep 17, 2022 Time Seen by Provider: 12:00 Subjective/Events-last exam 09/17/2022: Having more nausea Reports this happens when he needs additional higher dose of prednisone Will increase prednisone to 60 mg for 2 days then decrease by 10 mg once daily at bedside 09/16/2022: Improved status Pain is controlled at bedside Working with therapy A bit tired and nauseated today Review of Systems General: Fatigue, Malaise Musculoskeletal: leg pain Objective Exam Vital Signs Vital Signs Date Time Temp Pulse Resp B/P (MAP) Pulse Ox O2 Delivery O2 Flow Rate FiO2 09/17/22 09:30 Room Air 09/17/22 08:04 36.8 106 18 113/70 (84) 95 Capillary Refill : General Appearance: No Apparent Distress, WD/WN, Chronically ill HEENT: PERRL/EOMI, Normal ENT Inspection, Pharynx Normal Neck: Full Range of Motion, Normal Inspection, Non Tender, Supple, Carotid Bruit Respiratory: Chest Non Tender, Lungs Clear, Normal Breath Sounds, No Accessory Muscle Use, No Respiratory Distress Cardiovascular: Regular Rate, Rhythm, No Edema, No Gallop, No JVD, No Murmur, Normal Peripheral Pulses Gastrointestinal: Normal Bowel Sounds, No Organomegaly, No Pulsatile Mass, Non Tender, Soft Back: Normal Inspection, No CVA Tenderness, No Vertebral Tenderness Extremity: Normal Capillary Refill, Normal Inspection, Normal Range of Motion (Except right leg), Non Tender, No Calf Tenderness, No Pedal Edema Neurologic/Psychiatric: Alert, Oriented x3, No Motor/Sensory Deficits (Except right leg), Normal 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 FIM Transfers Therapy Code Descriptions/Definitions Functional [place] Measure: 0=Not Assessed/NA 4=Minimal Assistance 1=Total Assistance 5=Supervision or Setup 2=Maximal Assistance 6=Modified [place] 3=Moderate Assistance 7=Complete IndependenceSCALE: Activities may be completed with or without assistive devices. 4-Piodhaohjo-hypvrpt completes the activity by him/herself with no assistance from a helper. 5-Set-up or Clean-up Assistance-helper sets up or cleans up; patient completes activity. [place] assists only prior to or following the activity. 4-Supervision or Touching Assistance-helper provides verbal cues and/or touching/steadying and/or contact guard assistance as patient completes act ivity. Assistance may be provided throughout the activity or intermittently. 3-Partial/Moderate Assistance-helper does LESS THAN HALF the effort. [place] lifts, holds or supports trunk or limbs, but provides less than half the effort. 2-Substantial/Maximal Assistance-helper does MORE THAN HALF the effort. [place] lifts or holds trunk or limbs and provides more than half the effort. 0-Flyvjgijs-ublkef does ALL the effort. Patient does none of the effort to complete the activity. Or, the assistance of 2 or more helpers is required for the patient to complete the activity. If activity was not attempted, code reason: 7-Patient Refused. 9-Not Applicable-not attempted and the patient did not perform the activity before the current illness, exacerbation or injury. 10-Not Attempted due to Environmental Limitations-(lack of equipment, weather restraints, etc.). 88-Not Attempted due to Medical Conditions or Safety Concerns. Roll Left to Right (QC): 4 Sit to Lying (QC): 3 Sit to Stand (QC): 4 Chair/Ipu-kx-Iyeiz Xfer(QC): 4 Car Transfer (QC): 4 Gait Training Does the Patient Walk?: Yes Distance: 155 Walk 10 feet (QC): 4 Walk 50 ft with 2 Turns(QC): 4 Walk 150 ft (QC): 4 Walking 10ft/uneven surface-QC: 4 Gait Persons Needed: 1 Gait Assistive Device: FWW Wheelchair Training Wheel 50 ft with 2 turns (QC): 9 Wheel 150 ft (QC): 9 Stair Training #of Steps: 1 1 Step (curb) (QC): 4 4 Steps (QC): 88 12 Steps (QC): 88 Balance Picking up an Object (QC): 4 (CGA using a medical insurance biller) ADL-Treatment Eating (QC): 6 Oral Hygiene (QC): 6 (per patient report) Shower/Bathe Self (QC): 5 (Assist needed to cover incision) Upper Body Dressing (QC): 6 Lower Body Dressing (QC): 6 On/Off Footwear (QC): 6 Toileting Hygiene (QC): 6 Assessment/Plan Assessment and Plan Assess & Plan/Chief Complaint Assessment: Right Valgus Impacted Femoral Neck Fracture post op surgical fixation with 3 pins Falling episode at home Chronic weakness Chronic back pain Chronic pain pump in place Polymyalgia rheumatica Chronic steroid therapy Hypertension Sleep apnea Ulceration of scalp post MOHS surgery Acute nausea indicative of adrenal insufficiency we will increase dose of prednisone Plan: PT and OT per protocol Pain control Supportive care Fall risk 09/16/2022: Supportive care Pain control 09/17/2022: Supportive care Increase prednisone (1) Closed right hip fracture Status: Acute (2) Fall from standing Status: Acute (3) H/O prostatectomy Status: Chronic (4) COPD (chronic obstructive pulmonary disease) Status: Chronic (5) REGINE on CPAP Status: Chronic (6) HTN (hypertension) Status: Chronic BARRON TAO DO Sep 17, 2022 06:13
[2022-09-17] MEDS: predniSONE 10 MG TAB PO SCH (06:28)
[2022-09-17] MEDS: ONDANSETRON 4 MG (ZOFRAN) ORAL DISSOLVE TAB PO PRN ×2 (06:34→20:43)
[2022-09-17 08:04] VITALS: BP 113/70
[2022-09-17] MEDS: ACETAMINOPHEN 325 MG TABLET PO PRN (08:04)
[2022-09-17] MEDS: DOCUSATE SODIUM 100 MG (COLACE) CAP PO SCH ×2 (08:08→20:43)
[2022-09-17] MEDS: PANTOPRAZOLE 40 MG (PROTONIX) TAB PO SCH (08:08)
[2022-09-17] MEDS: ASPIRIN E.C. 81 MG (ECOTRIN) TAB PO SCH ×2 (08:08→18:32)
[2022-09-17] MEDS: SENNA W/DOCUSATE (SENOKOT S) TABLET PO SCH ×2 (08:08→20:43)
[2022-09-17] MEDS: ENOXAPARIN 40 MG/0.4 ML (LOVENOX) SYR SQ SCH (08:10)
[2022-09-17] MEDS: polyethylene glycoL POWDER 17 GM (MIRALAX) PACK PO SCH ×2 (08:14→20:43)
[2022-09-17] MEDS: HYPOCHLOROUS ACID/NaCl (VASHE) 250 ML IR SCH (08:15)
[2022-09-17] MEDS ORDERED: predniSONE 20 MG TAB PO NR ×2 (12:00)
[2022-09-17] MEDS: ONDANSETRON 4 MG/2 ML (SDV) Z0FRAN IV PRN (12:00)
[2022-09-17 20:00] VITALS: BP 122/73
[2022-09-18] MEDS: predniSONE 10 MG TAB PO SCH (05:49)
[2022-09-18 06:14] LABS: BASOPHILS % (AUTO) 0 % (0-10); EOSINOPHILS % (AUTO) 0 % (0-10); HEMATOCRIT 37 % (40-54); HEMOGLOBIN 12.2 g/dL (13.3-17.7); LYMPHOCYTES # (AUTO) 1.2 10^3/uL (1.0-4.0); LYMPHOCYTES % (AUTO) 13 % (12-44); MEAN CORPUSCULAR HEMOGLOBIN 29 pg (25-34); MEAN CORPUSCULAR HGB CONC 33 g/dL (32-36); MEAN CORPUSCULAR VOLUME 87 fL (80-99); MEAN PLATELET VOLUME 9.4 fL (9.0-12.2); MONOCYTES # (AUTO) 0.8 10^3/uL (0.0-1.0); MONOCYTES % (AUTO) 9 % (0-12); NEUTROPHILS % (AUTO) 77 % (42-75); PLATELET COUNT 172 10^3/uL (130-400); WHITE BLOOD COUNT 9.1 10^3/uL (4.3-11.0)
[2022-09-18] MEDS: ONDANSETRON 4 MG (ZOFRAN) ORAL DISSOLVE TAB PO PRN (06:16)
[2022-09-18 06:34] LABS: ALBUMIN 3.4 GM/DL (3.2-4.5); BILIRUBIN,TOTAL 0.6 MG/DL (0.1-1.0); CALCIUM 9.6 MG/DL (8.5-10.1); CREATININE SERUM 0.72 MG/DL (0.60-1.30); TOTAL PROTEIN 6.2 GM/DL (6.4-8.2)
--- NOTE | 2022-09-18 06:55 | PM&R Progress Note ---
Subjective HPI/CC On Admission Date Seen by Provider: Sep 18, 2022 Time Seen by Provider: 12:00 Subjective/Events-last exam 09/18/2022: Patient doing a lot better since nausea resolved Supportive care will continue Increase prednisone 09/17/2022: Having more nausea Reports this happens when he needs additional higher dose of prednisone Will increase prednisone to 60 mg for 2 days then decrease by 10 mg once daily at bedside 09/16/2022: Improved status Pain is controlled at bedside Working with therapy A bit tired and nauseated today Review of Systems General: Fatigue, Malaise Objective Exam Vital Signs Vital Signs Date Time Temp Pulse Resp B/P (MAP) Pulse Ox O2 Delivery O2 Flow Rate FiO2 09/18/22 09:30 Room Air 09/18/22 08:00 36.1 72 18 131/73 (92) 09/17/22 20:00 94 Capillary Refill : General Appearance: No Apparent Distress, WD/WN, Chronically ill HEENT: PERRL/EOMI, Normal ENT Inspection, Pharynx Normal Neck: Full Range of Motion, Normal Inspection, Non Tender, Supple, Carotid Bruit Respiratory: Chest Non Tender, Lungs Clear, Normal Breath Sounds, No Accessory Muscle Use, No Respiratory Distress Cardiovascular: Regular Rate, Rhythm, No Edema, No Gallop, No JVD, No Murmur, Normal Peripheral Pulses Gastrointestinal: Normal Bowel Sounds, No Organomegaly, No Pulsatile Mass, Non Tender, Soft Back: Normal Inspection, No CVA Tenderness, No Vertebral Tenderness Extremity: Normal Capillary Refill, Normal Inspection, Normal Range of Motion (Except right leg), Non Tender, No Calf Tenderness, No Pedal Edema Neurologic/Psychiatric: Alert, Oriented x3, No Motor/Sensory Deficits (Except right leg), Normal 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 FIM Transfers Therapy Code Descriptions/Definitions Functional [place] Measure: 0=Not Assessed/NA 4=Minimal Assistance 1=Total Assistance 5=Supervision or Setup 2=Maximal Assistance 6=Modified [place] 3=Moderate Assistance 7=Complete IndependenceSCALE: Activities may be completed with or without assistive devices. 7-Xfyahmjoxj-thhinpf completes the activity by him/herself with no assistance from a helper. 5-Set-up or Clean-up Assistance-helper sets up or cleans up; patient completes activity. [place] assists only prior to or following the activity. 4-Supervision or Touching Assistance-helper provides verbal cues and/or touching/steadying and/or contact guard assistance as patient completes activity. Assistance may be provided throughout the activity or intermittently. 3-Partial/Moderate Assistance-helper does LESS THAN HALF the effort. [place] lifts, holds or supports trunk or limbs, but provides less than half the effort. 2-Substantial/Maximal Assistance-helper does MORE THAN HALF the effort. [place] lifts or holds trunk or limbs and provides more than half the effort. 3-Cwsrruiib-wdyxdp does ALL the effort. Patient does none of the effort to complete the activity. Or, the assistance of 2 or more helpers is required for the patient to complete the activity. If activity was not attempted, code reason: 7-Patient Refused. 9-Not Applicable-not attempted and the patient did not perform the activity before the current illness, exacerbation or injury. 10-Not Attempted due to Environmental Limitations-(lack of equipment, weather restraints, etc.). 88-Not Attempted due to Medical Conditions or Safety Concerns. Roll Left to Right (QC): 4 Sit to Lying (QC): 3 Sit to Stand (QC): 4 Chair/Zes-vh-Sadcs Xfer(QC): 4 Car Transfer (QC): 4 Gait Training Does the Patient Walk?: Yes Distance: 155 Walk 10 feet (QC): 4 Walk 50 ft with 2 Turns(QC): 4 Walk 150 ft (QC): 4 Walking 10ft/uneven surface-QC: 4 Gait Persons Needed: 1 Gait Assistive Device: FWW Wheelchair Training Wheel 50 ft with 2 turns (QC): 9 Wheel 150 ft (QC): 9 Stair Training #of Steps: 1 1 Step (curb) (QC): 4 4 Steps (QC): 88 12 Steps (QC): 88 Balance Picking up an Object (QC): 4 (CGA using a medical transcriptionist) ADL-Treatment Eating (QC): 6 Oral Hygiene (QC): 6 (per patient report) Shower/Bathe Self (QC): 5 (Assist needed to cover incision) Upper Body Dressing (QC): 6 Lower Body Dressing (QC): 6 On/Off Footwear (QC): 6 Toileting Hygiene (QC): 6 Assessment/Plan Assessment and Plan Assess & Plan/Chief Complaint Assessment: Right Valgus Impacted Femoral Neck Fracture post op surgical fixation with 3 pins Falling episode at home Chronic weakness Chronic back pain Chronic pain pump in place Polymyalgia rheumatica Chronic steroid therapy Hypertension Sleep apnea Ulceration of scalp post MOHS surgery Acute nausea indicative of adrenal insufficiency we will increase dose of prednisone Plan: PT and OT per protocol Pain control Supportive care Fall risk 09/16/2022: Supportive care Pain control 09/17/2022: Supportive care Increase prednisone 09/18/2022: Supportive care Monitor closely (1) Closed right hip fracture Status: Acute (2) Fall from standing Status: Acute (3) H/O prostatectomy Status: Chronic (4) COPD (chronic obstructive pulmonary disease) Status: Chronic (5) REGINE on CPAP Status: Chronic (6) HTN (hypertension) Status: Chronic BARRON TAO DO Sep 18, 2022 06:55
[2022-09-18] MEDS ORDERED: predniSONE 20 MG TAB PO SCH (07:00)
[2022-09-18] MEDS: PANTOPRAZOLE 40 MG (PROTONIX) TAB PO SCH (07:38)
[2022-09-18] MEDS: ONDANSETRON 4 MG/2 ML (SDV) Z0FRAN IV PRN ×2 (07:39→22:16)
[2022-09-18] MEDS: DOCUSATE SODIUM 100 MG (COLACE) CAP PO SCH ×2 (07:46→21:01)
[2022-09-18] MEDS: ASPIRIN E.C. 81 MG (ECOTRIN) TAB PO SCH ×2 (07:46→17:20)
[2022-09-18] MEDS: SENNA W/DOCUSATE (SENOKOT S) TABLET PO SCH ×2 (07:46→21:01)
[2022-09-18] MEDS: polyethylene glycoL POWDER 17 GM (MIRALAX) PACK PO SCH ×2 (07:46→21:01)
[2022-09-18] MEDS: HYPOCHLOROUS ACID/NaCl (VASHE) 250 ML IR SCH (07:47)
[2022-09-18 08:00] VITALS: BP 131/73
[2022-09-18] MEDS: ENOXAPARIN 40 MG/0.4 ML (LOVENOX) SYR SQ SCH (08:42)
--- NOTE | 2022-09-18 12:05 | Physical Therapy Daily Note ---
PT Daily Note-Current Subjective Pt found laying in bed upon entry. Agreed to PT. States that he has been having stomach issues this morning but they have improved. Reports R hip soreness but states that the pain is minimal. Does not rate pain. Pain Section J - Health Conditions 1. Rarely or not at all 2. Occasionally 3. Frequently 4. Almost constantly 8. Unable to answer Pain Effect on Sleep: 1 Pain Interference with Therapy: 1 Pain Interference w/Day-to-Day: 1 Mental Status Patient Orientation: Normal For Age Transfers SCALE: Activities may be completed with or without assistive devices. 2-Rmoshdbfmn-ynrafhf completes the activity by him/herself with no assistance from a helper. 5-Set-up or Clean-up Assistance-helper sets up or cleans up; patient completes activity. [place] assists only prior to or following the activity. 4-Supervision or Touching Assistance-helper provides verbal cues and/or touching/steadying and/or contact guard assistance as patient completes activity. Assistance may be provided throughout the activity or intermittently. 3-Partial/Moderate Assistance-helper does LESS THAN HALF the effort. [place] lifts, holds or supports trunk or limbs, but provides less than half the effort. 2-Substantial/Maximal Assistance-helper does MORE THAN HALF the effort. [place] lifts or holds trunk or limbs and provides more than half the effort. 3-Asqwgkoqu-xbnixn does ALL the effort. Patient does none of the effort to complete the activity. Or, the assistance of 2 or more helpers is required for the patient to complete the activity. If activity was not attempted, code reason: 7-Patient Refused. 9-Not Applicable-not attempted and the patient did not perform the activity before the current illness, exacerbation or injury. 10-Not Attempted due to Environmental Limitations-(lack of equipment, weather restraints, etc.). 88-Not Attempted due to Medical Conditions or Safety Concerns. Lying to Sitting/Side of Bed(Q: 4 Sit to Stand (QC): 4 Pt CGA /c all trfs. Weight Bearing Right Lower Extremity: Right Partial Weight Bearing (30-50#) Gait Training Does the Patient Walk?: Yes Distance: 300, 100 Walk 10 feet (QC): 4 Walk 50 ft with 2 Turns(QC): 4 Walk 150 ft (QC): 4 Gait Persons Needed: 1 Gait Assistive Device: FWW Pt CGA /c gait training. Amb. 400ft total. Wheelchair Training Does the Pt Use a Wheelchair?: No Stair Training Stair Training: Handrails/: 2 handrails #of Steps: 12 1 Step (curb) (QC): 4 4 Steps (QC): 4 12 Steps (QC): 4 Stairs: Pattern: Step to Pt CGA /c stair training. Exercises Standing: Hamstring curls, Heel/toe raises, 3 way Ex=Flex, Abd, Ext, Marching, Side steps, Step-ups Standing Reps: 15 Pt tolerated exercise well /c no report of increased pain. Assessment Current Status: Good Progress Pt demonstrated good tolerance to Tx /c no report of increased pain. Displays good endurance throughout Tx. Able to maintain PWB status throughout exercise, gait training, and stair training. Continue to progress pt as tolerated per POC to increase strength, functional ability, and decrease pain. PT Short Term Goals Short Term Goals Time Frame: Sep 22, 2022 Sit to lyin (SBA) Lying to sitting on side of be: 4 (SBA) Sit to stand: 4 (SBA) Chair/ind-uc-kgbuf transfer: 4 (SBA) Walk 10 feet: 4 (SBA) Walk 50 feet with two turns: 4 (SBA) Walk 150 feet: 4 (SBA) PT Skilled Nursing Goals Airline Reservation Agent Goals PT Skilled Nursing Goals Time Frame: Sep 29, 2022 Roll Left & Right (QC): 6 Sit to Lying (QC): 6 Lying-Sitting on Side/Bed(QC): 6 Sit to Stand (QC): 6 Chair/Uaa-ne-Gaadd Xfer(QC): 6 Toilet Transfer (QC): 6 Car Transfer (QC): 6 Does the Patient Walk: Yes Walk 10 feet (QC): 6 Walk 50ft with 2 Turns (QC): 6 Walk 150 ft (QC): 6 Walking 10ft on Uneven Surface: 6 1 Step (curb) (QC): 4 4 Steps (QC): 4 12 Steps (QC): 88 Picking up an Object (QC): 6 (using functional mental disability teacher) Wheel 50 feet with 2 turns (QC: 9 Wheel 150 feet: 9 PT Plan Treatment/Plan Treatment Plan: Continue Plan of Care Treatment Plan: Bed Mobility, Education, Functional Activity Kim, Functional Strength, Group Therapy, Gait, Safety, Therapeutic Exercise, Transfers Treatment Duration: Sep 29, 2022 Frequency: At least 5 of 7 days/Wk (IRF) Estimated Hrs Per Day: 1.5 hours per day Patient and/or Family Agrees t: Yes Time Time In: 0900 Time Out: 1000 DATE: Sep 18, 2022 Total Billed Treatment Time: 60 Total Billed Treatment 1 visit GT 1x EX 2x FA 1x ASHLEY JOHNSON PTA Sep 18, 2022 12:05
--- NOTE | 2022-09-18 12:52 | Occupational Ther Daily Note ---
OT Current Status-Daily Note Subjective Pt alert, sitting in recliner. Pt agrees to therapy. No c/o pain, c/o nausea and nrsg aware. Mental Status/Objective Patient Orientation: Person, Place, Time, Situation Attachments: IV ADL-Treatment Pt agrees to shower. Using FWW, pt retrieves clothing. Completed shower using shower bench, grabbar, hand held shower independently. Pt complete upper/lower body dressing independently. Completed oral care standing at sink. Independent with footwear. After session, pt sitting in recliner with call light/phone in reach. All needs met in room. Therapy Code Descriptions/Definitions Functional [place] Measure: 0=Not Assessed/NA 4=Minimal Assistance 1=Total Assistance 5=Supervision or Setup 2=Maximal Assistance 6=Modified [place] 3=Moderate Assistance 7=Complete IndependenceSCALE: Activities may be completed with or without assistive devices. 4-Mvymahahtz-hlhopyd completes the activity by him/herself with no assistance from a helper. 5-Set-up or Clean-up Assistance-helper sets up or cleans up; patient completes activity. [place] assists only prior to or following the activity. 4-Supervision or Touching Assistance-helper provides verbal cues and/or touching/steadying and/or contact guard assistance as patient completes activity. Assistance may be provided throughout the activity or intermittently. 3-Partial/Moderate Assistance-helper does LESS THAN HALF the effort. [place] lifts, holds or supports trunk or limbs, but provides less than half the effort. 2-Substantial/Maximal Assistance-helper does MORE THAN HALF the effort. [place] lifts or holds trunk or limbs and provides more than half the effort. 0-Smbanqpjm-yloevj does ALL the effort. Patient does none of the effort to complete the activity. Or, the assistance of 2 or more helpers is required for the patient to complete the activity. If activity was not attempted, code reason: 7-Patient Refused. 9-Not Applicable-not attempted and the patient did not perform the activity before the current illness, exacerbation or injury. 10-Not Attempted due to Environmental Limitations-(lack of equipment, weather restraints, etc.). 88-Not Attempted due to Medical Conditions or Safety Concerns. Oral Hygiene (QC): 6 Shower/Bathe Self (QC): 6 Upper Body Dressing (QC): 6 Lower Body Dressing (QC): 6 On/Off Footwear: 6 OT Short Term Goals Short Term Goals Time Frame: Sep 17, 2022 Eatin Oral hygiene: 6 Toileting hygiene: 6 Shower/bathe self: 5 Upper body dressin Lower body dressin Putting on/taking off footwear: 6 OT [place] Goals [place] Goals Time Frame: Sep 21, 2022 Acute change in mental status: 0 Inattention: 0 Disorganized thinkin Altered level of consciousness: 0 Eating (QC): 6 Oral Hygiene (QC): 6 Toileting Hygiene (QC): 6 Shower/Bathe Self (QC): 5 Upper Body Dressing (QC): 6 Lower Body Dressing (QC): 6 On/Off Footwear (QC): 6 Additional Goals: 1-Demonstrate ADL Tasks, 2-Verbalize Understanding, 3- ImproveStrength/Kim 1=Demonstrate adherence to instructed precautions during ADL tasks. 2=Patient will verbalize/demonstrate understanding of assistive devices/mod ifications for ADL. 3=Patient will improve strength/tolerance for activity to enable patient to perform ADL's. OT Education/Plan Problem List/Assessment Assessment: Impaired Self-Care Skills Discharge Recommendations Plan/Recommendations: Continue POC Treatment Plan/Plan of Care Patient would benefit from OT for education, treatment and training to promote independence in ADL's, mobility, safety and/or upper extremity function for ADL's. Plan of Care: ADL Retraining, Functional Mobility, Group Exercise/Act as Ind, UE Funct Exercise/Act Treatment Duration: Sep 21, 2022 Frequency: At least 5 of 7 days/Wk (IRF) Estimated Hrs Per Day: 1.5 hours per day Agreement: Yes Rehab Potential: Fair Time Start Time: 10:00 Stop Time: 12:15 DATE: Sep 18, 2022 Total Time Billed (hr/min): 75 Billed Treatment Time 1 visit-ADL 5 (75 min) OLIVIA VICENTE Sep 18, 2022 12:51
--- NOTE | 2022-09-18 13:22 | Occupational Ther Daily Note ---
OT Current Status-Daily Note Subjective No pain reported. Mental Status/Objective Patient Orientation: Person, Place, Time, Situation ADL-Treatment Therapy Code Descriptions/Definitions Functional [place] Measure: 0=Not Assessed/NA 4=Minimal Assistance 1=Total Assistance 5=Supervision or Setup 2=Maximal Assistance 6=Modified [place] 3=Moderate Assistance 7=Complete IndependenceSCALE: Activities may be completed with or without assistive devices. 6-Woygmwnaux-nigrkyg completes the activity by him/herself with no assistance from a helper. 5-Set-up or Clean-up Assistance-helper sets up or cleans up; patient completes activity. [place] assists only prior to or following the activity. 4-Supervision or Touching Assistance-helper provides verbal cues and/or touching/steadying and/or contact guard assistance as patient completes activity. Assistance may be provided throughout the activity or intermittently. 3-Partial/Moderate Assistance-helper does LESS THAN HALF the effort. [place] lifts, holds or supports trunk or limbs, but provides less than half the effort. 2-Substantial/Maximal Assistance-helper does MORE THAN HALF the effort. [place] lifts or holds trunk or limbs and provides more than half the effort. 4-Uvsxfgcgo-qvrguq does ALL the effort. Patient does none of the effort to complete the activity. Or, the assistance of 2 or more helpers is required for the patient to complete the activity. If activity was not attempted, code reason: 7-Patient Refused. 9-Not Applicable-not attempted and the patient did not perform the activity before the current illness, exacerbation or injury. 10-Not Attempted due to Environmental Limitations-(lack of equipment, weather restraints, etc.). 88-Not Attempted due to Medical Conditions or Safety Concerns. Eating (QC): 6 (Pt. finished lunch.) Toileting Hygiene (QC): 5 (Set up to toilet self.) Toilet Transfer (QC): 4 (Supervision only to transfer on and off the toilet.) Other Treatment Pt. agrees to therapy. Utilized toilet for toileting task, and then ambulated around therapy unit approximately 10minutes with SBA with use of walker. All needs met back in room. Education OT Patient Education: Correct positioning, Modified ADL techniques, Progress toward Goal/Update tx plan, Purpose of tx/functional activities, Reviewed precautions, Rehab process, Transfer techniques Teaching Recipient: Patient Teaching Methods: Demonstration, Discussion Response to Teaching: Verbalize Understanding, Return Demonstration OT Short Term Goals Short Term Goals Time Frame: Sep 17, 2022 Eatin Oral hygiene: 6 Toileting hygiene: 6 Shower/bathe self: 5 Upper body dressin Lower body dressin Putting on/taking off footwear: 6 OT Dashboard Developer Goals Dashboard Developer Goals Time Frame: Sep 21, 2022 Acute change in mental status: 0 Inattention: 0 Disorganized thinkin Altered level of consciousness: 0 Eating (QC): 6 Oral Hygiene (QC): 6 Toileting Hygiene (QC): 6 Shower/Bathe Self (QC): 5 Upper Body Dressing (QC): 6 Lower Body Dressing (QC): 6 On/Off Footwear (QC): 6 Additional Goals: 1-Demonstrate ADL Tasks, 2-Verbalize Understanding, 3- ImproveStrength/Kim 1=Demonstrate adherence to instructed precautions during ADL tasks. 2=Patient will verbalize/demonstrate understanding of assistive devices/modifications for ADL. 3=Patient will improve strength/tolerance for activity to enable patient to perform ADL's. OT Education/Plan Problem List/Assessment Assessment: Decreased Activ Tolerance Discharge Recommendations Plan/Recommendations: Continue POC Treatment Plan/Plan of Care Treatment,Training & Education: Yes Patient would benefit from OT for education, treatment and training to promote independence in ADL's, mobility, safety and/or upper extremity function for ADL's. Plan of Care: ADL Retraining, Functional Mobility, Group Exercise/Act as Ind, UE Funct Exercise/Act Treatment Duration: Sep 21, 2022 Frequency: At least 5 of 7 days/Wk (IRF) Estimated Hrs Per Day: 1.5 hours per day Agreement: Yes Rehab Potential: Good Time Start Time: 13:05 Stop Time: 13:20 DATE: Sep 18, 2022 Total Time Billed (hr/min): 15 Billed Treatment Time 1, FA x 15minutes STEPHANIE APPLE OT Sep 18, 2022 13:22
--- NOTE | 2022-09-18 15:10 | Physical Therapy Daily Note ---
PT Daily Note-Current Subjective Pt found seated in recliner upon entry. Agreed to PT. Reports that he wants to put more weight on his RLE. Report R hip soreness but does not rate. Pain Section J - Health Conditions 1. Rarely or not at all 2. Occasionally 3. Frequently 4. Almost constantly 8. Unable to answer Pain Effect on Sleep: 1 Pain Interference with Therapy: 1 Pain Interference w/Day-to-Day: 1 Mental Status Patient Orientation: Normal For Age Transfers SCALE: Activities may be completed with or without assistive devices. 2-Wxapbuqkcp-vvwmirm completes the activity by him/herself with no assistance from a helper. 5-Set-up or Clean-up Assistance-helper sets up or cleans up; patient completes activity. [place] assists only prior to or following the activity. 4-Supervision or Touching Assistance-helper provides verbal cues and/or touching/steadying and/or contact guard assistance as patient completes activity. Assistance may be provided throughout the activity or intermittently. 3-Partial/Moderate Assistance-helper does LESS THAN HALF the effort. [place] lifts, holds or supports trunk or limbs, but provides less than half the effort. 2-Substantial/Maximal Assistance-helper does MORE THAN HALF the effort. [place] lifts or holds trunk or limbs and provides more than half the effort. 8-Kkohhhrmt-enbzyb does ALL the effort. Patient does none of the effort to complete the activity. Or, the assistance of 2 or more helpers is required for the patient to complete the activity. If activity was not attempted, code reason: 7-Patient Refused. 9-Not Applicable-not attempted and the patient did not perform the activity before the current illness, exacerbation or injury. 10-Not Attempted due to Environmental Limitations-(lack of equipment, weather restraints, etc.). 88-Not Attempted due to Medical Conditions or Safety Concerns. Sit to Stand (QC): 4 Pt CGA /c sit<->stand trfs. Weight Bearing Right Lower Extremity: Right Partial Weight Bearing (30-50#) Gait Training Does the Patient Walk?: Yes Distance: 300, 100 Walk 10 feet (QC): 4 Walk 50 ft with 2 Turns(QC): 4 Walk 150 ft (QC): 4 Gait Persons Needed: 1 Gait Assistive Device: FWW Pt CGA /c gait training. Amb. 400ft total /c FWW. Wheelchair Training Does the Pt Use a Wheelchair?: No Stair Training Stair Training: Handrails/: 2 handrails #of Steps: 12 1 Step (curb) (QC): 4 4 Steps (QC): 4 12 Steps (QC): 4 Stairs: Pattern: Step to Pt CGA /c stair training. Exercises Seated Therapy Exercises: Long arc quads Seated Reps: 10 Pt tolerated exercise well /c no report of increased pain. Assessment Current Status: Good Progress Pt demonstrated good tolerance to Tx. Pt has hip soreness near in of visit. Displays good endurance throughout Tx. Continue to progress pt as tolerated per POC to increase strength, endurance, and functional ability. PT Short Term Goals Short Term Goals Time Frame: Sep 22, 2022 Sit to lyin (SBA) Lying to sitting on side of be: 4 (SBA) Sit to stand: 4 (SBA) Chair/ley-xn-vwcec transfer: 4 (SBA) Walk 10 feet: 4 (SBA) Walk 50 feet with two turns: 4 (SBA) Walk 150 feet: 4 (SBA) PT Fudge Candy Maker Goals Fudge Candy Maker Goals PT Fudge Candy Maker Goals Time Frame: Sep 29, 2022 Roll Left & Right (QC): 6 Sit to Lying (QC): 6 Lying-Sitting on Side/Bed(QC): 6 Sit to Stand (QC): 6 Chair/Cdb-pz-Jexbx Xfer(QC): 6 Toilet Transfer (QC): 6 Car Transfer (QC): 6 Does the Patient Walk: Yes Walk 10 feet (QC): 6 Walk 50ft with 2 Turns (QC): 6 Walk 150 ft (QC): 6 Walking 10ft on Uneven Surface: 6 1 Step (curb) (QC): 4 4 Steps (QC): 4 12 Steps (QC): 88 Picking up an Object (QC): 6 (using head holder) Wheel 50 feet with 2 turns (QC: 9 Wheel 150 feet: 9 PT Plan Treatment/Plan Treatment Plan: Continue Plan of Care Treatment Plan: Bed Mobility, Education, Functional Activity Kim, Functional Strength, Group Therapy, Gait, Safety, Therapeutic Exercise, Transfers Treatment Duration: Sep 29, 2022 Frequency: At least 5 of 7 days/Wk (IRF) Estimated Hrs Per Day: 1.5 hours per day Patient and/or Family Agrees t: Yes Time Time In: 1400 Time Out: 1430 DATE: Sep 18, 2022 Total Billed Treatment Time: 30 Total Billed Treatment 1 visit GT 1x EX 1x ASHLEY JOHNSON PTA Sep 18, 2022 15:10
[2022-09-18 20:38] VITALS: BP 133/77
--- NOTE | 2022-09-19 05:09 | PM&R Progress Note ---
Subjective HPI/CC On Admission Date Seen by Provider: Sep 19, 2022 Time Seen by Provider: 09:00 Subjective/Events-last exam 09/19/2022: Patient doing well Much improved No nausea Walking well 09/18/2022: Patient doing a lot better since nausea resolved Supportive care will continue Increase prednisone 09/17/2022: Having more nausea Reports this happens when he needs additional higher dose of prednisone Will increase prednisone to 60 mg for 2 days then decrease by 10 mg once daily at bedside 09/16/2022: Improved status Pain is controlled at bedside Working with therapy A bit tired and nauseated today Review of Systems General: Fatigue, Malaise Gastrointestinal: Nausea Objective Exam Vital Signs Vital Signs Date Time Temp Pulse Resp B/P (MAP) Pulse Ox O2 Delivery O2 Flow Rate FiO2 09/19/22 20:24 36.4 66 16 127/73 (91) 95 Room Air Capillary Refill : General Appearance: No Apparent Distress, WD/WN, Chronically ill HEENT: PERRL/EOMI, Normal ENT Inspection, Pharynx Normal Neck: Full Range of Motion, Normal Inspection, Non Tender, Supple, Carotid Bruit Respiratory: Chest Non Tender, Lungs Clear, Normal Breath Sounds, No Accessory Muscle Use, No Respiratory Distress Cardiovascular: Regular Rate, Rhythm, No Edema, No Gallop, No JVD, No Murmur, Normal Peripheral Pulses Gastrointestinal: Normal Bowel Sounds, No Organomegaly, No Pulsatile Mass, Non Tender, Soft Back: Normal Inspection, No CVA Tenderness, No Vertebral Tenderness Extremity: Normal Capillary Refill, Normal Inspection, Normal Range of Motion (Except right leg), Non Tender, No Calf Tenderness, No Pedal Edema Neurologic/Psychiatric: Alert, Oriented x3, No Motor/Sensory Deficits (Except right leg), Normal Mood/Affect, dining room server II-XII Norm as 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 FIM Transfers Therapy Code Descriptions/Definitions Functional [place] Measure: 0=Not Assessed/NA 4=Minimal Assistance 1=Total Assistance 5=Supervision or Setup 2=Maximal Assistance 6=Modified [place] 3=Moderate Assistance 7=Complete IndependenceSCALE: Activities may be completed with or without assistive devices. 3-Wbaanycvuc-ookqdso completes the activity by him/herself with no assistance from a helper. 5-Set-up or Clean-up Assistance-helper sets up or cleans up; patient completes activity. [place] assists only prior to or following the activity. 4-Supervision or Touching Assistance-helper provides verbal cues and/or touching/steadying and/or contact guard assistance as patient completes activity. Assistance may be provided throughout the activity or intermittently. 3-Partial/Moderate Assistance-helper does LESS THAN HALF the effort. [place] lifts, holds or supports trunk or limbs, but provides less than half the effort. 2-Substantial/Maximal Assistance-helper does MORE THAN HALF the effort. [place] lifts or holds trunk or limbs and provides more than half the effort. 2-Rcllqgguw-hebtbi does ALL the effort. Patient does none of the effort to complete the activity. Or, the assistance of 2 or more helpers is required for the patient to complete the activity. If activity was not attempted, code reason: 7-Patient Refused. 9-Not Applicable-not attempted and the patient did not perform the activity before the current illness, exacerbation or injury. 10-Not Attempted due to Environmental Limitations-(lack of equipment, weather restraints, etc.). 88-Not Attempted due to Medical Conditions or Safety Concerns. Roll Left to Right (QC): 4 Sit to Lying (QC): 3 Sit to Stand (QC): 4 Chair/Wko-bf-[place] Xfer(QC): 4 Car Transfer (QC): 4 Gait Training Does the Patient Walk?: Yes Distance: 300, 100 Walk 10 feet (QC): 4 Walk 50 ft with 2 Turns(QC): 4 Walk 150 ft (QC): 4 Walking 10ft/uneven surface-QC: 4 Gait Persons Needed: 1 Gait Assistive Device: FWW Wheelchair Training Does the Pt Use a Wheelchair?: No Wheel 50 ft with 2 turns (QC): 9 Wheel 150 ft (QC): 9 Stair Training Stair Training: Handrails/: 2 handrails #of Steps: 12 1 Step (curb) (QC): 4 4 Steps (QC): 4 12 Steps (QC): 4 Stairs: Pattern: Step to Balance Picking up an Object (QC): 4 (CGA using a dietary cook) ADL-Treatment Eating (QC): 6 (Pt. finished lunch.) Oral Hygiene (QC): 6 Shower/Bathe Self (QC): 6 Upper Body Dressing (QC): 6 Lower Body Dressing (QC): 6 On/Off Footwear (QC): 6 Toileting Hygiene (QC): 5 (Set up to toilet self.) Toilet Transfer (QC): 4 (Supervision only to transfer on and off the toilet.) Assessment/Plan Assessment and Plan Assess & Plan/Chief Complaint Assessment: Right Valgus Impacted Femoral Neck Fracture post op surgical fixation with 3 pins Falling episode at home Chronic weakness Chronic back pain Chronic pain pump in place Polymyalgia rheumatica Chronic steroid therapy Hypertension Sleep apnea Ulceration of scalp post MOHS surgery Acute nausea indicative of adrenal insufficiency we will increase dose of prednisone Plan: PT and OT per protocol Pain control Supportive care Fall risk 09/16/2022: Supportive care Pain control 09/17/2022: Supportive care Increase prednisone 09/18/2022: Supportive care Monitor closely 09/19/2022: Continue treatment Supportive care (1) Closed right hip fracture Status: Acute (2) Fall from standing Status: Acute (3) H/O prostatectomy Status: Chronic (4) COPD (chronic obstructive pulmonary disease) Status: Chronic (5) REGINE on CPAP Status: Chronic (6) HTN (hypertension) Status: Chronic BARRON TAO DO Sep 19, 2022 05:09
[2022-09-19] MEDS: ONDANSETRON 4 MG/2 ML (SDV) Z0FRAN IV PRN (06:36)
[2022-09-19] MEDS: predniSONE 10 MG TAB PO SCH (06:36)
[2022-09-19 08:00] VITALS: BP 120/60
[2022-09-19] MEDS: polyethylene glycoL POWDER 17 GM (MIRALAX) PACK PO SCH ×2 (08:49→19:49)
[2022-09-19] MEDS: DOCUSATE SODIUM 100 MG (COLACE) CAP PO SCH ×2 (08:49→20:29)
[2022-09-19] MEDS: ENOXAPARIN 40 MG/0.4 ML (LOVENOX) SYR SQ SCH (08:49)
[2022-09-19] MEDS: PANTOPRAZOLE 40 MG (PROTONIX) TAB PO SCH (08:49)
[2022-09-19] MEDS: ASPIRIN E.C. 81 MG (ECOTRIN) TAB PO SCH ×2 (08:49→17:11)
[2022-09-19] MEDS: SENNA W/DOCUSATE (SENOKOT S) TABLET PO SCH ×2 (08:50→20:29)
[2022-09-19] MEDS: HYPOCHLOROUS ACID/NaCl (VASHE) 250 ML IR SCH (08:50)
--- NOTE | 2022-09-19 08:57 | Occupational Ther Daily Note ---
OT Current Status-Daily Note Subjective Pt denies pain, agreeable to treatment. Appearance Pt returned to sitting in recliner, all needs within reach. Mental Status/Objective Patient Orientation: Person, Place, Situation Attachments: IV ADL-Treatment Therapy Code Descriptions/Definitions Functional [place] Measure: 0=Not Assessed/NA 4=Minimal Assistance 1=Total Assistance 5=Supervision or Setup 2=Maximal Assistance 6=Modified [place] 3=Moderate Assistance 7=Complete IndependenceSCALE: Activities may be completed with or without assistive devices. 9-Uvemmkhntm-fteedpn completes the activity by him/herself with no assistance from a helper. 5-Set-up or Clean-up Assistance-helper sets up or cleans up; patient completes activity. [place] assists only prior to or following the activity. 4-Supervision or Touching Assistance-helper provides verbal cues and/or touching/steadying and/or contact guard assistance as patient completes activity. Assistance may be provided throughout the activity or intermittently. 3-Partial/Moderate Assistance-helper does LESS THAN HALF the effort. [place] lifts, holds or supports trunk or limbs, but provides less than half the effort. 2-Substantial/Maximal Assistance-helper does MORE THAN HALF the effort. [place] lifts or holds trunk or limbs and provides more than half the effort. 7-Jfovqvaxq-tqbvot does ALL the effort. Patient does none of the effort to complete the activity. Or, the assistance of 2 or more helpers is required for the patient to complete the activity. If activity was not attempted, code reason: 7-Patient Refused. 9-Not Applicable-not attempted and the patient did not perform the activity before the current illness, exacerbation or injury. 10-Not Attempted due to Environmental Limitations-(lack of equipment, weather restraints, etc.). 88-Not Attempted due to Medical Conditions or Safety Concerns. Eating (QC): 6 Oral Hygiene (QC): 6 Upper Body Dressing (QC): 6 Lower Body Dressing (QC): 6 On/Off Footwear: 6 Toileting Hygiene (QC): 6 Toilet Transfer (QC): 6 Other Treatment Pt ambulated within room and unit with SBA and use of walker. He has difficulty maintaining partial weight bearing and requires frequent reminders on pushing through arms to offload weight. He is able to follow cues but does not sustain throughout. While in therapy gym pt participated in several UE exercises with focus on improving strength needed during gait activities. ~160 degrees R shoulder AROM (baseline from old injury). All other joints within functional limits. 5# weighted dowel deb utilized for all planes. 1x15. Pt also passed small therapy ball around neck/back and under legs (figure 8), 1x15. 2# wrist weights donned for added strengthening component. Pt stood at heighten therapy mat to complete nuts/bolts board. Goal to increase standing tolerance while maintaining partial weight bearing. Several cues given to shift weight over to LLE. Education OT Patient Education: Correct positioning, Energy conservation, Exercise program, Progress toward Goal/Update tx plan, Purpose of tx/functional activities, Reviewed precautions, Safety issues Teaching Recipient: Patient Teaching Methods: Demonstration, Discussion Response to Teaching: Verbalize Understanding, Return Demonstration, Reinforcement Needed OT Short Term Goals Short Term Goals Time Frame: Sep 17, 2022 Eatin Oral hygiene: 6 Toileting hygiene: 6 Shower/bathe self: 5 Upper body dressin Lower body dressin Putting on/taking off footwear: 6 OT Long-Term Goals Long-Term Goals Time Frame: Sep 21, 2022 Eating (QC): 6 Oral Hygiene (QC): 6 Toileting Hygiene (QC): 6 Shower/Bathe Self (QC): 5 Upper Body Dressing (QC): 6 Lower Body Dressing (QC): 6 On/Off Footwear (QC): 6 Additional Goals: 1-Demonstrate ADL Tasks, 2-Verbalize Understanding, 3-ImproveStrength/Kim 1=Demonstrate adherence to instructed precautions during ADL tasks. 2=Patient will verbalize/demonstrate understanding of assistive devices/modifications for ADL. 3=Patient will improve strength/tolerance for activity to enable patient to perform ADL's. OT Education/Plan Treatment Plan/Plan of Care Patient would benefit from OT for education, treatment and training to promote independence in ADL's, mobility, safety and/or upper extremity function for ADL's. Plan of Care: ADL Retraining, Functional Mobility, Group Exercise/Act as Ind, UE Funct Exercise/Act Treatment Duration: Sep 21, 2022 Frequency: At least 5 of 7 days/Wk (IRF) Estimated Hrs Per Day: 1.5 hours per day Agreement: Yes Rehab Potential: Lisbeth Jimenez OT Sep 19, 2022 08:57
--- NOTE | 2022-09-19 09:02 | Occupational Ther Daily Note ---
OT Current Status-Daily Note Subjective Pt denies pain, agreeable to treatment. Appearance Pt returned to sitting in recliner, all needs within reach. Mental Status/Objective Patient Orientation: Person, Place, Situation Attachments: IV ADL-Treatment Therapy Code Descriptions/Definitions Functional [place] Measure: 0=Not Assessed/NA 4=Minimal Assistance 1=Total Assistance 5=Supervision or Setup 2=Maximal Assistance 6=Modified [place] 3=Moderate Assistance 7=Complete IndependenceSCALE: Activities may be completed with or without assistive devices. 1-Duqjlztvjd-kkefvkv completes the activity by him/herself with no assistance from a helper. 5-Set-up or Clean-up Assistance-helper sets up or cleans up; patient completes activity. [place] assists only prior to or following the activity. 4-Supervision or Touching Assistance-helper provides verbal cues and/or touching/steadying and/or contact guard assistance as patient completes activity. Assistance may be provided throughout the activity or intermittently. 3-Partial/Moderate Assistance-helper does LESS THAN HALF the effort. [place] lifts, holds or supports trunk or limbs, but provides less than half the effort. 2-Substantial/Maximal Assistance-helper does MORE THAN HALF the effort. [place] lifts or holds trunk or limbs and provides more than half the effort. 5-Lvxvxoqbm-siaeol does ALL the effort. Patient does none of the effort to complete the activity. Or, the assistance of 2 or more helpers is required for the patient to complete the activity. If activity was not attempted, code reason: 7-Patient Refused. 9-Not Applicable-not attempted and the patient did not perform the activity before the current illness, exacerbation or injury. 10-Not Attempted due to Environmental Limitations-(lack of equipment, weather restraints, etc.). 88-Not Attempted due to Medical Conditions or Safety Concerns. Eating (QC): 6 Oral Hygiene (QC): 6 Upper Body Dressing (QC): 6 Lower Body Dressing (QC): 6 On/Off Footwear: 6 Toileting Hygiene (QC): 6 Toilet Transfer (QC): 6 Other Treatment Pt ambulated within room and unit with SBA and use of walker. He has difficulty maintaining partial weight bearing and requires frequent reminders on pushing through arms to offload weight. He is able to follow cues but does not sustain throughout. While in therapy gym pt participated in several UE exercises with focus on improving strength needed during gait activities. ~160 degrees R shoulder AROM (baseline from old injury). All other joints within functional limits. 5# weighted dowel deb utilized for all planes. 1x15. Pt also passed small therapy ball around neck/back and under legs (figure 8), 1x15. 2# wrist weights donned for added strengthening component. Pt stood at heighten therapy mat to complete nuts/bolts board. Goal to increase standing tolerance while maintaining partial weight bearing. Several cues given to shift weight over to LLE. Education OT Patient Education: Correct positioning, Energy conservation, Exercise program, Progress toward Goal/Update tx plan, Purpose of tx/functional activities, Reviewed precautions, Safety issues Teaching Recipient: Patient Teaching Methods: Demonstration, Discussion Response to Teaching: Verbalize Understanding, Return Demonstration, Reinforcement Needed OT Short Term Goals Short Term Goals Time Frame: Sep 17, 2022 Eatin Oral hygiene: 6 Toileting hygiene: 6 Shower/bathe self: 5 Upper body dressin Lower body dressin Putting on/taking off footwear: 6 OT Detention Goals Detention Goals Time Frame: Sep 21, 2022 Acute change in mental status: 0 Inattention: 0 Disorganized thinkin Altered level of consciousness: 0 Eating (QC): 6 Oral Hygiene (QC): 6 Toileting Hygiene (QC): 6 Shower/Bathe Self (QC): 5 Upper Body Dressing (QC): 6 Lower Body Dressing (QC): 6 On/Off Footwear (QC): 6 Additional Goals: 1-Demonstrate ADL Tasks, 2-Verbalize Understanding, 3- ImproveStrength/Kim 1=Demonstrate adherence to instructed precautions during ADL tasks. 2=Patient will verbalize/demonstrate understanding of assistive devices/modifications for ADL. 3=Patient will improve strength/tolerance for activity to enable patient to perform ADL's. OT Education/Plan Problem List/Assessment Assessment: Decreased Activ Tolerance, Decreased Safety Aware, Decreased UE Strength, Impaired I ADL's Discharge Recommendations Plan/Recommendations: Continue POC Treatment Plan/Plan of Care Treatment,Training & Education: Yes Patient would benefit from OT for education, treatment and training to promote independence in ADL's, mobility, safety and/or upper extremity function for ADL's. Plan of Care: ADL Retraining, Functional Mobility, Group Exercise/Act as Ind, UE Funct Exercise/Act Treatment Duration: Sep 21, 2022 Frequency: At least 5 of 7 days/Wk (IRF) Estimated Hrs Per Day: 1.5 hours per day Agreement: Yes Rehab Potential: Good Time Start Time: 07:25 Stop Time: 08:55 DATE: Sep 19, 2022 Total Time Billed (hr/min): 90 Billed Treatment Time 1 visit ADL (20 min) FA x2 (30 min) EX x3 (40 min) Lisbeth Duckworth OT Sep 19, 2022 09:02
--- NOTE | 2022-09-19 11:01 | Physical Therapy Daily Note ---
PT Daily Note-Current Subjective Pt found seated in recliner upon entry. Agreed to PT. Reports R hip muscle pain during gait training. Does not rate pain. Pain Section J - Health Conditions 1. Rarely or not at all 2. Occasionally 3. Frequently 4. Almost constantly 8. Unable to answer Pain Effect on Sleep: 1 Pain Interference with Therapy: 1 Pain Interference w/Day-to-Day: 1 Mental Status Patient Orientation: Normal For Age Transfers SCALE: Activities may be completed with or without assistive devices. 2-Ycnxwzhrdv-lywoiqw completes the activity by him/herself with no assistance from a helper. 5-Set-up or Clean-up Assistance-helper sets up or cleans up; patient completes activity. [place] assists only prior to or following the activity. 4-Supervision or Touching Assistance-helper provides verbal cues and/or touching/steadying and/or contact guard assistance as patient completes activity. Assistance may be provided throughout the activity or intermittently. 3-Partial/Moderate Assistance-helper does LESS THAN HALF the effort. [place] lifts, holds or supports trunk or limbs, but provides less than half the effort. 2-Substantial/Maximal Assistance-helper does MORE THAN HALF the effort. [place] l ifts or holds trunk or limbs and provides more than half the effort. 4-Afciyknku-sruqey does ALL the effort. Patient does none of the effort to complete the activity. Or, the assistance of 2 or more helpers is required for the patient to complete the activity. If activity was not attempted, code reason: 7-Patient Refused. 9-Not Applicable-not attempted and the patient did not perform the activity before the current illness, exacerbation or injury. 10-Not Attempted due to Environmental Limitations-(lack of equipment, weather restraints, etc.). 88-Not Attempted due to Medical Conditions or Safety Concerns. Sit to Stand (QC): 6 Pt independent /c sit<->stand trfs. Weight Bearing Right Lower Extremity: Right Partial Weight Bearing (30-50#) Gait Training Does the Patient Walk?: Yes Distance: 400, 100 Walk 10 feet (QC): 6 Walk 50 ft with 2 Turns(QC): 6 Walk 150 ft (QC): 6 Gait Persons Needed: 1 Gait Assistive Device: FWW Pt independent /c gait training. Amb. 500ft total /c FWW. Wheelchair Training Does the Pt Use a Wheelchair?: No Exercises Seated Therapy Exercises: Hip flexion, Hip abd/add Seated Reps: 15 Standing: Hamstring curls, 3 way Ex=Flex, Abd, Ext, Side steps, Step-ups Standing Reps: 15 Pt tolerated exercise well /c no report of increased pain. Assessment Current Status: Good Progress Pt tolerated Tx well /c no report of increased pain. Demonstrated good muscle endurance and strength throughout Tx. Pt now independent /c trfs and gait training. Required seated RBs between sets d/t R hip soreness. Continue to progress pt as tolerated per POC to increase strength, endurance, functional ability, and decrease pain. PT Short Term Goals Short Term Goals Time Frame: Sep 22, 2022 Sit to lyin (SBA) Lying to sitting on side of be: 4 (SBA) Sit to stand: 4 (SBA) Chair/ibl-cd-gclvc transfer: 4 (SBA) Walk 10 feet: 4 (SBA) Walk 50 feet with two turns: 4 (SBA) Walk 150 feet: 4 (SBA) PT Shelter Goals Field Return Repairer Goals PT Field Return Repairer Goals Time Frame: Sep 29, 2022 Roll Left & Right (QC): 6 Sit to Lying (QC): 6 Lying-Sitting on Side/Bed(QC): 6 Sit to Stand (QC): 6 Chair/Vgq-sb-Lopwp Xfer(QC): 6 Toilet Transfer (QC): 6 Car Transfer (QC): 6 Does the Patient Walk: Yes Walk 10 feet (QC): 6 Walk 50ft with 2 Turns (QC): 6 Walk 150 ft (QC): 6 Walking 10ft on Uneven Surface: 6 1 Step (curb) (QC): 4 4 Steps (QC): 4 12 Steps (QC): 88 Picking up an Object (QC): 6 (using engineering supervisor) Wheel 50 feet with 2 turns (QC: 9 Wheel 150 feet: 9 PT Plan Treatment/Plan Treatment Plan: Continue Plan of Care Treatment Plan: Bed Mobility, Education, Functional Activity Kim, Functional Strength, Group Therapy, Gait, Safety, Therapeutic Exercise, Transfers Treatment Duration: Sep 29, 2022 Frequency: At least 5 of 7 days/Wk (IRF) Estimated Hrs Per Day: 1.5 hours per day Patient and/or Family Agrees t: Yes Time Time In: 854 Time Out: 954 DATE: Sep 19, 2022 Total Billed Treatment Time: 60 Total Billed Treatment 1 visit GT 2x EX 2x ASHLEY JOHNSON PTA Sep 19, 2022 11:00
--- NOTE | 2022-09-19 13:36 | Physical Therapy Daily Note ---
PT Daily Note-Current Subjective Pt found seated on recliner upon entry. Agreed to PT. States that his R hip was getting sore sitting in the chair. Does not rate pain. Pain Section J - Health Conditions 1. Rarely or not at all 2. Occasionally 3. Frequently 4. Almost constantly 8. Unable to answer Pain Effect on Sleep: 1 Pain Interference with Therapy: 1 Pain Interference w/Day-to-Day: 1 Mental Status Patient Orientation: Normal For Age Transfers SCALE: Activities may be completed with or without assistive devices. 7-Eebtpiiczf-eqkhwbv completes the activity by him/herself with no assistance from a helper. 5-Set-up or Clean-up Assistance-helper sets up or cleans up; patient completes activity. [place] assists only prior to or following the activity. 4-Supervision or Touching Assistance-helper provides verbal cues and/or touching/steadying and/or contact guard assistance as patient completes activity. Assistance may be provided throughout the activity or intermittently. 3-Partial/Moderate Assistance-helper does LESS THAN HALF the effort. [place] lifts, holds or supports trunk or limbs, but provides less than half the effort. 2-Substantial/Maximal Assistance-helper does MORE THAN HALF the effort. [place] lifts or holds trunk or limbs and provides more than half the effort. 7-Enxbiruqp-otsjiz does ALL the effort. Patient does none of the effort to complete the activity. Or, the assistance of 2 or more helpers is required for the patient to complete the activity. If activity was not attempted, code reason: 7-Patient Refused. 9-Not Applicable-not attempted and the patient did not perform the activity before the current illness, exacerbation or injury. 10-Not Attempted due to Environmental Limitations-(lack of equipment, weather restraints, etc.). 88-Not Attempted due to Medical Conditions or Safety Concerns. Sit to Stand (QC): 6 Pt independent /c sit<->stand trfs. Weight Bearing Right Lower Extremity: Right Partial Weight Bearing (30-50#) Gait Training Does the Patient Walk?: Yes Distance: 400, 100 Walk 10 feet (QC): 6 Walk 50 ft with 2 Turns(QC): 6 Walk 150 ft (QC): 6 Gait Persons Needed: 1 Gait Assistive Device: FWW Pt independent /c gait training. Amb. 500ft total /c FWW. Wheelchair Training Does the Pt Use a Wheelchair?: No Exercises Standing: Side steps, Step-ups Standing Reps: 15 Pt tolerated exercise well /c no report of increased pain. Assessment Current Status: Good Progress Pt tolerated Tx well /c no report of increased pain. Pt continues to progress /c endurance and strength. Required short seated RBs between sets. Continue to progress pt as tolerated to improve endurance, strength, functional ability, and decrease pain. PT Short Term Goals Short Term Goals Time Frame: Sep 22, 2022 Sit to lyin (SBA) Lying to sitting on side of be: 4 (SBA) Sit to stand: 4 (SBA) Chair/gxd-mb-kyvjy transfer: 4 (SBA) Walk 10 feet: 4 (SBA) Walk 50 feet with two turns: 4 (SBA) Walk 150 feet: 4 (SBA) PT Visual Effects Artist Goals Visual Effects Artist Goals PT Visual Effects Artist Goals Time Frame: Sep 29, 2022 Roll Left & Right (QC): 6 Sit to Lying (QC): 6 Lying-Sitting on Side/Bed(QC): 6 Sit to Stand (QC): 6 Chair/Dtr-hp-Xfwbm Xfer(QC): 6 Toilet Transfer (QC): 6 Car Transfer (QC): 6 Does the Patient Walk: Yes Walk 10 feet (QC): 6 Walk 50ft with 2 Turns (QC): 6 Walk 150 ft (QC): 6 Walking 10ft on Uneven Surface: 6 1 Step (curb) (QC): 4 4 Steps (QC): 4 12 Steps (QC): 88 Picking up an Object (QC): 6 (using field account manager) Wheel 50 feet with 2 turns (QC: 9 Wheel 150 feet: 9 PT Plan Treatment/Plan Treatment Plan: Continue Plan of Care Treatment Plan: Bed Mobility, Education, Functional Activity Kim, Functional Strength, Group Therapy, Gait, Safety, Therapeutic Exercise, Transfers Treatment Duration: Sep 29, 2022 Frequency: At least 5 of 7 days/Wk (IRF) Estimated Hrs Per Day: 1.5 hours per day Patient and/or Family Agrees t: Yes Time Time In: 1300 Time Out: 1330 DATE: Sep 19, 2022 Total Billed Treatment Time: 30 Total Billed Treatment 1 visit EX 1x GT 1x MAJOR,ASHLEY RETAIL ADVERTISING EXECUTIVE Sep 19, 2022 13:35
[2022-09-19 20:24] VITALS: BP 127/73
--- NOTE | 2022-09-20 05:28 | PM&R Progress Note ---
Subjective HPI/CC On Admission Date Seen by Provider: Sep 20, 2022 Time Seen by Provider: 11:00 Subjective/Events-last exam 09/20/2022: Set for discharge tomorrow Supportive care will continue Pain is well controlled 09/19/2022: Patient doing well Much improved No nausea Walking well 09/18/2022: Patient doing a lot better since nausea resolved Supportive care will continue Increase prednisone 09/17/2022: Having more nausea Reports this happens when he needs additional higher dose of prednisone Will increase prednisone to 60 mg for 2 days then decrease by 10 mg once daily at bedside 09/16/2022: Improved status Pain is controlled at bedside Working with therapy A bit tired and nauseated today Review of Systems General: Fatigue, Malaise Musculoskeletal: leg pain Objective Exam Vital Signs Vital Signs Date Time Temp Pulse Resp B/P (MAP) Pulse Ox O2 Delivery O2 Flow Rate FiO2 09/20/22 20:50 Room Air 09/20/22 20:39 36.2 62 18 153/90 (111) 95 Capillary Refill : General Appearance: No Apparent Distress, WD/WN, Chronically ill HEENT: PERRL/EOMI, Normal ENT Inspection, Pharynx Normal Neck: Full Range of Motion, Normal Inspection, Non Tender, Supple, Carotid Bruit Respiratory: Chest Non Tender, Lungs Clear, Normal Breath Sounds, No Accessory Muscle Use, No Respiratory Distress Cardiovascular: Regular Rate, Rhythm, No Edema, No Gallop, No JVD, No Murmur, Normal Peripheral Pulses Gastrointestinal: Normal Bowel Sounds, No Organomegaly, No Pulsatile Mass, Non Tender, Soft Back: Normal Inspection, No CVA Tenderness, No Vertebral Tenderness Extremity: Normal Capillary Refill, Normal Inspection, Normal Range of Motion (Except right leg), Non Tender, No Calf Tenderness, No Pedal Edema Neurologic/Psychiatric: Alert, Oriented x3, No Motor/Sensory Deficits (Except right leg), Normal Mood/Affect, cleaner operator II-XII Norm as 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 FIM Transfers Therapy Code Descriptions/Definitions Functional [place] Measure: 0=Not Assessed/NA 4=Minimal Assistance 1=Total Assistance 5=Supervision or Setup 2=Maximal Assistance 6=Modified [place] 3=Moderate Assistance 7=Complete IndependenceSCALE: Activities may be completed with or without assistive devices. 4-Tspphffwwm-htsoqvr completes the activity by him/herself with no assistance from a helper. 5-Set-up or Clean-up Assistance-helper sets up or cleans up; patient completes activity. [place] assists only prior to or following the activity. 4-Supervision or Touching Assistance-helper provides verbal cues and/or touching/steadying and/or contact guard assistance as patient completes activity. Assistance may be provided throughout the activity or intermittently. 3-Partial/Moderate Assistance-helper does LESS THAN HALF the effort. [place] lifts, holds or supports trunk or limbs, but provides less than half the effort. 2-Substantial/Maximal Assistance-helper does MORE THAN HALF the effort. [place] lifts or holds trunk or limbs and provides more than half the effort. 3-Lrscqpzpt-hglzvr does ALL the effort. Patient does none of the effort to complete the activity. Or, the assistance of 2 or more helpers is required for the patient to complete the activity. If activity was not attempted, code reason: 7-Patient Refused. 9-Not Applicable-not attempted and the patient did not perform the activity before the current illness, exacerbation or injury. 10-Not Attempted due to Environmental Limitations-(lack of equipment, weather restraints, etc.). 88-Not Attempted due to Medical Conditions or Safety Concerns. Roll Left to Right (QC): 4 Sit to Lying (QC): 3 Sit to Stand (QC): 6 Chair/Fya-eu-Rqfgk Xfer(QC): 4 Car Transfer (QC): 4 Gait Training Does the Patient Walk?: Yes Distance: 400, 100 Walk 10 feet (QC): 6 Walk 50 ft with 2 Turns(QC): 6 Walk 150 ft (QC): 6 Walking 10ft/uneven surface-QC: 4 Gait Persons Needed: 1 Gait Assistive Device: FWW Wheelchair Training Does the Pt Use a Wheelchair?: No Wheel 50 ft with 2 turns (QC): 9 Wheel 150 ft (QC): 9 Stair Training Stair Training: Handrails/: 2 handrails #of Steps: 12 1 Step (curb) (QC): 4 4 Steps (QC): 4 12 Steps (QC): 4 Stairs: Pattern: Step to Balance Picking up an Object (QC): 4 (CGA using a product marketing programs manager) ADL-Treatment Eating (QC): 6 Oral Hygiene (QC): 6 Shower/Bathe Self (QC): 6 Upper Body Dressing (QC): 6 Lower Body Dressing (QC): 6 On/Off Footwear (QC): 6 Toileting Hygiene (QC): 6 Toilet Transfer (QC): 6 Assessment/Plan Assessment and Plan Assess & Plan/Chief Complaint Assessment: Right Valgus Impacted Femoral Neck Fracture post op surgical fixation with 3 pins Falling episode at home Chronic weakness Chronic back pain Chronic pain pump in place Polymyalgia rheumatica Chronic steroid therapy Hypertension Sleep apnea Ulceration of scalp post MOHS surgery Acute nausea indicative of adrenal insufficiency we will increase dose of prednisone Plan: PT and OT per protocol Pain control Supportive care Fall risk 09/16/2022: Supportive care Pain control 09/17/2022: Supportive care Increase prednisone 09/18/2022: Supportive care Monitor closely 09/19/2022: Continue treatment Supportive care 09/20/2022: Discharge home tomorrow (1) Closed right hip fracture Status: Acute (2) Fall from standing Status: Acute (3) H/O prostatectomy Status: Chronic (4) COPD (chronic obstructive pulmonary disease) Status: Chronic (5) REGINE on CPAP Status: Chronic (6) HTN (hypertension) Status: Chronic BARRON TAO DO Sep 20, 2022 05:28
[2022-09-20] MEDS: ONDANSETRON 4 MG/2 ML (SDV) Z0FRAN IV PRN (06:11)
[2022-09-20] MEDS: predniSONE 10 MG TAB PO SCH (06:11)
[2022-09-20] MEDS: ASPIRIN E.C. 81 MG (ECOTRIN) TAB PO SCH ×2 (07:34→17:06)
[2022-09-20] MEDS: PANTOPRAZOLE 40 MG (PROTONIX) TAB PO SCH (07:34)
[2022-09-20] MEDS: ENOXAPARIN 40 MG/0.4 ML (LOVENOX) SYR SQ SCH (07:34)
[2022-09-20] MEDS: DOCUSATE SODIUM 100 MG (COLACE) CAP PO SCH ×2 (07:34→20:48)
[2022-09-20] MEDS: polyethylene glycoL POWDER 17 GM (MIRALAX) PACK PO SCH ×2 (07:34→20:48)
[2022-09-20] MEDS: SENNA W/DOCUSATE (SENOKOT S) TABLET PO SCH ×2 (07:34→20:48)
[2022-09-20] MEDS: HYPOCHLOROUS ACID/NaCl (VASHE) 250 ML IR SCH (07:35)
[2022-09-20 08:00] VITALS: BP 130/81
--- NOTE | 2022-09-20 08:26 | Occupational Ther Daily Note ---
OT Current Status-Daily Note Subjective Pt reports R hip pain as 4/10 Appearance Pt returned to sitting in recliner, all needs within reach at OT departure. Mental Status/Objective Patient Orientation: Person, Place, Situation ADL-Treatment Therapy Code Descriptions/Definitions Functional [place] Measure: 0=Not Assessed/NA 4=Minimal Assistance 1=Total Assistance 5=Supervision or Setup 2=Maximal Assistance 6=Modified [place] 3=Moderate Assistance 7=Complete IndependenceSCALE: Activities may be completed with or without assistive devices. 3-Hlrkzihelr-lnyszey completes the activity by him/herself with no assistance from a helper. 5-Set-up or Clean-up Assistance-helper sets up or cleans up; patient completes activity. [place] assists only prior to or following the activity. 4-Supervision or Touching Assistance-helper provides verbal cues and/or touching/steadying and/or contact guard assistance as patient completes activity. Assistance may be provided throughout the activity or intermittently. 3-Partial/Moderate Assistance-helper does LESS THAN HALF the effort. [place] lifts, holds or supports trunk or limbs, but provides less than half the effort. 2-Substantial/Maximal Assistance-helper does MORE THAN HALF the effort. [place] lifts or holds trunk or limbs and provides more than half the effort. 7-Kraiulwji-gasniu does ALL the effort. Patient does none of the effort to complete the activity. Or, the assistance of 2 or more helpers is required for the patient to complete the activity. If activity was not attempted, code reason: 7-Patient Refused. 9-Not Applicable-not attempted and the patient did not perform the activity before the current illness, exacerbation or injury. 10-Not Attempted due to Environmental Limitations-(lack of equipment, weather restraints, etc.). 88-Not Attempted due to Medical Conditions or Safety Concerns. Eating (QC): 6 Shower/Bathe Self (QC): 5 Upper Body Dressing (QC): 6 Lower Body Dressing (QC): 6 On/Off Footwear: 6 Toileting Hygiene (QC): 6 Toilet Transfer (QC): 6 Pt requires assist for covering hip dressing, C/D/I post task. No physical assistance needed to bathe or don clothing. Reminders on energy conservation strategies and adherence to partial weight bearing during gait/standing activities. Education OT Patient Education: Progress toward Goal/Update tx plan, Purpose of tx/functional activities, Safety issues Teaching Recipient: Patient Teaching Methods: Discussion Response to Teaching: Verbalize Understanding, Return Demonstration, Reinforcement Needed BIMS CAM BIMS Expression of Ideas and Wants: Without Difficulty Understanding Verbal Content: Understands Brief Interview/Mental Status: Yes IRF NAT BIMS: IRF NAT BIMS Response (Comments) Value Repitition of Three Words Three 3 Recalls Socks Yes, After Cueing (Wear) 1 Recalls Blue Yes, No Cue Required 2 Recalls Bed No, Could Not Recall 0 Year Correct 3 Month Accurate Within 5 Days 2 Day Correct 1 Total 12 Should Staff Asses. Mental St.: No Notes: 09/07 CAM Mental Status Change/Baseline: 0 Inattention: 0 Disorganized thinkin Altered level of consciousness: 0 OT Short Term Goals Short Term Goals Time Frame: Sep 17, 2022 Eatin Oral hygiene: 6 Toileting hygiene: 6 Shower/bathe self: 5 Upper body dressin Lower body dressin Putting on/taking off footwear: 6 OT Instrumental Music Teacher Goals Instrumental Music Teacher Goals Time Frame: Sep 21, 2022 Acute change in mental status: 0 Inattention: 0 Disorganized thinkin Altered level of consciousness: 0 Eating (QC): 6 Oral Hygiene (QC): 6 Toileting Hygiene (QC): 6 Shower/Bathe Self (QC): 5 Upper Body Dressing (QC): 6 Lower Body Dressing (QC): 6 On/Off Footwear (QC): 6 Additional Goals: 1-Demonstrate ADL Tasks, 2-Verbalize Understanding, 3- ImproveStrength/Kim 1=Demonstrate adherence to instructed precautions during ADL tasks. 2=Patient will verbalize/demonstrate understanding of assistive devices/modifications for ADL. 3=Patient will improve strength/tolerance for activity to enable patient to perform ADL's. OT Education/Plan Problem List/Assessment Assessment: Decreased Activ Tolerance, Decreased Safety Aware, Decreased UE Strength, Impaired I ADL's Discharge Recommendations Plan/Recommendations: Continue POC Therapy Discharge Recommendati: Homemaker Support, Home & Family Treatment Plan/Plan of Care Treatment,Training & Education: Yes Patient would benefit from OT for education, treatment and training to promote independence in ADL's, mobility, safety and/or upper extremity function for ADL's. Plan of Care: ADL Retraining, Functional Mobility, Group Exercise/Act as Ind, UE Funct Exercise/Act Treatment Duration: Sep 21, 2022 Frequency: At least 5 of 7 days/Wk (IRF) Estimated Hrs Per Day: 1.5 hours per day Agreement: Yes Rehab Potential: Good Time Start Time: 07:35 Stop Time: 08:30 DATE: Sep 20, 2022 Total Time Billed (hr/min): 55 Billed Treatment Time 1 visit ADL x4 Lisbeth Duckworth OT Sep 20, 2022 08:26
--- NOTE | 2022-09-20 10:01 | Physical Therapy Daily Note ---
PT Daily Note-Current Subjective Pt found seated in chair upon entry. Agreed to PT. States that he did not take pain medicine this morning but will take it when he gets back to his room. Reports R hip stiffness from sitting in the recliner. Does not rate pain. Pain Section J - Health Conditions 1. Rarely or not at all 2. Occasionally 3. Frequently 4. Almost constantly 8. Unable to answer Pain Effect on Sleep: 1 Pain Interference with Therapy: 1 Pain Interference w/Day-to-Day: 1 Mental Status Patient Orientation: Normal For Age Transfers SCALE: Activities may be completed with or without assistive devices. 3-Jngovgspsu-udjwsqz completes the activity by him/herself with no assistance from a helper. 5-Set-up or Clean-up Assistance-helper sets up or cleans up; patient completes activity. [place] assists only prior to or following the activity. 4-Supervision or Touching Assistance-helper provides verbal cues and/or touching/steadying and/or contact guard assistance as patient completes activity. Assistance may be provided throughout the activity or intermittently. 3-Partial/Moderate Assistance-helper does LESS THAN HALF the effort. [place] lifts, holds or supports trunk or limbs, but provides less than half the effort. 2-Substantial/Maximal Assistance-helper does MORE THAN HALF the effort. [place] lifts or holds trunk or limbs and provides more than half the effort. 6-Akgfspqhh-yejqdj does ALL the effort. Patient does none of the effort to complete the activity. Or, the assistance of 2 or more helpers is required for the patient to complete the activity. If activity was not attempted, code reason: 7-Patient Refused. 9-Not Applicable-not attempted and the patient did not perform the activity before the current illness, exacerbation or injury. 10-Not Attempted due to Environmental Limitations-(lack of equipment, weather restraints, etc.). 88-Not Attempted due to Medical Conditions or Safety Concerns. Roll Left & Right (QC): 6 Sit to Lying (QC): 6 Lying to Sitting/Side of Bed(Q: 6 Sit to Stand (QC): 6 Chair/Nnb-rj-Hogwk Xfer(QC): 6 Toilet Transfer (QC): 6 Car Transfer (QC): 6 Pt independent /c all trfs. Weight Bearing Right Lower Extremity: Right Partial Weight Bearing (30-50#) Gait Training Does the Patient Walk?: Yes Distance: 300, 100, 100 Walk 10 feet (QC): 6 Walk 50 ft with 2 Turns(QC): 6 Walk 150 ft (QC): 6 Walking 10ft/uneven surface-QC: 6 Gait Persons Needed: 1 Gait Assistive Device: FWW Pt independent /c gait training. Amb. 500ft total /c FWW. Wheelchair Training Does the Pt Use a Wheelchair?: No Stair Training Stair Training: Handrails/: 2 handrails #of Steps: 12 1 Step (curb) (QC): 6 4 Steps (QC): 6 12 Steps (QC): 6 Stairs: Pattern: Step to Pt independent /c stair training. Balance Picking up an Object (QC): 6 Exercises Standing: Hamstring curls, Heel/toe raises, 3 way Ex=Flex, Abd, Ext, Marching, Side steps, Step-ups Standing Reps: 15 Pt tolerated exercise well /c no report of increased pain. Assessment Current Status: Good Progress Pt tolerated Tx well but did report hip soreness during Tx. Pt demonstrated good endurance and strength throughout Tx. Independent /c stair, gait, and exercise training. Independent /c all trfs. Displays good balance throughout Tx. Continue to progress pt as tolerated per POC to increase strength, endurance, and functional ability. PT Short Term Goals Short Term Goals Time Frame: Sep 22, 2022 Sit to lyin (SBA) Lying to sitting on side of be: 4 (SBA) Sit to stand: 4 (SBA) Chair/mql-te-dxxfz transfer: 4 (SBA) Walk 10 feet: 4 (SBA) Walk 50 feet with two turns: 4 (SBA) Walk 150 feet: 4 (SBA) PT Snf Goals Snf Goals PT Snf Goals Time Frame: Sep 29, 2022 Roll Left & Right (QC): 6 Sit to Lying (QC): 6 Lying-Sitting on Side/Bed(QC): 6 Sit to Stand (QC): 6 Chair/Out-mv-Jldee Xfer(QC): 6 Toilet Transfer (QC): 6 Car Transfer (QC): 6 Does the Patient Walk: Yes Walk 10 feet (QC): 6 Walk 50ft with 2 Turns (QC): 6 Walk 150 ft (QC): 6 Walking 10ft on Uneven Surface: 6 1 Step (curb) (QC): 4 4 Steps (QC): 4 12 Steps (QC): 88 Picking up an Object (QC): 6 (using consulting practice director) Wheel 50 feet with 2 turns (QC: 9 Wheel 150 feet: 9 PT Plan Treatment/Plan Treatment Plan: Continue Plan of Care Treatment Plan: Bed Mobility, Education, Functional Activity Kim, Functional Strength, Group Therapy, Gait, Safety, Therapeutic Exercise, Transfers Treatment Duration: Sep 29, 2022 Frequency: At least 5 of 7 days/Wk (IRF) Estimated Hrs Per Day: 1.5 hours per day Patient and/or Family Agrees t: Yes Time Time In: 0900 Time Out: 1000 DATE: Sep 20, 2022 Total Billed Treatment Time: 60 Total Billed Treatment 1 visit GT 2x EX 1x FA 1x ASHLEY JOHNSON SPRING BENDER Sep 20, 2022 10:01
--- NOTE | 2022-09-20 11:08 | Occupational Ther Daily Note ---
OT Current Status-Daily Note Subjective Pt in good spirits, states he will be discharging tomorrow. Appearance Pt left sitting in recliner, all needs within reach. Mental Status/Objective Patient Orientation: Person, Place, Situation ADL-Treatment Therapy Code Descriptions/Definitions Functional [place] Measure: 0=Not Assessed/NA 4=Minimal Assistance 1=Total Assistance 5=Supervision or Setup 2=Maximal Assistance 6=Modified [place] 3=Moderate Assistance 7=Complete IndependenceSCALE: Activities may be completed with or without assistive devices. 7-Zkcuhrkebc-ifylang completes the activity by him/herself with no assistance from a helper. 5-Set-up or Clean-up Assistance-helper sets up or cleans up; patient completes activity. [place] assists only prior to or following the activity. 4-Supervision or Touching Assistance-helper provides verbal cues and/or touching/steadying and/or contact guard assistance as patient completes act ivity. Assistance may be provided throughout the activity or intermittently. 3-Partial/Moderate Assistance-helper does LESS THAN HALF the effort. Ren[place] lifts, holds or supports trunk or limbs, but provides less than half the effort. 2-Substantial/Maximal Assistance-helper does MORE THAN HALF the effort. [place] lifts or holds trunk or limbs and provides more than half the effort. 1-Kngyjqlqb-gxwjhi does ALL the effort. Patient does none of the effort to complete the activity. Or, the assistance of 2 or more helpers is required for the patient to complete the activity. If activity was not attempted, code reason: 7-Patient Refused. 9-Not Applicable-not attempted and the patient did not perform the activity before the current illness, exacerbation or injury. 10-Not Attempted due to Environmental Limitations-(lack of equipment, weather restraints, etc.). 88-Not Attempted due to Medical Conditions or Safety Concerns. Other Treatment OT issued and instructed pt on green theraband exercises. 1x12 all planes. Pt tolerates well and shows good follow through with cues on correct technique. Education OT Patient Education: Exercise program, Home exercise program Teaching Recipient: Patient Teaching Methods: Demonstration, Discussion Response to Teaching: Verbalize Understanding, Return Demonstration OT Short Term Goals Short Term Goals Time Frame: Sep 17, 2022 Eatin Oral hygiene: 6 Toileting hygiene: 6 Shower/bathe self: 5 Upper body dressin Lower body dressin Putting on/taking off footwear: 6 OT Recreation Manager Goals Group Home Goals Time Frame: Sep 21, 2022 Acute change in mental status: 0 Inattention: 0 Disorganized thinkin Altered level of consciousness: 0 Eating (QC): 6 Oral Hygiene (QC): 6 Toileting Hygiene (QC): 6 Shower/Bathe Self (QC): 5 Upper Body Dressing (QC): 6 Lower Body Dressing (QC): 6 On/Off Footwear (QC): 6 Additional Goals: 1-Demonstrate ADL Tasks, 2-Verbalize Understanding, 3- ImproveStrength/Kim 1=Demonstrate adherence to instructed precautions during ADL tasks. 2=Patient will verbalize/demonstrate understanding of assistive devices/modifications for ADL. 3=Patient will improve strength/tolerance for activity to enable patient to perform ADL's. OT Education/Plan Problem List/Assessment Assessment: Decreased Activ Tolerance, Decreased Safety Aware, Decreased UE Strength Discharge Recommendations Plan/Recommendations: Continue POC Treatment Plan/Plan of Care Treatment,Training & Education: Yes Patient would benefit from OT for education, treatment and training to promote independence in ADL's, mobility, safety and/or upper extremity function for ADL's. Plan of Care: ADL Retraining, Functional Mobility, Group Exercise/Act as Ind, UE Funct Exercise/Act Treatment Duration: Sep 21, 2022 Frequency: At least 5 of 7 days/Wk (IRF) Estimated Hrs Per Day: 1.5 hours per day Agreement: Yes Rehab Potential: Good Time Start Time: 10:30 Stop Time: 11:05 DATE: Sep 20, 2022 Total Time Billed (hr/min): 35 Billed Treatment Time 1 visit EX Lisbeth Mary OT Sep 20, 2022 11:08
--- NOTE | 2022-09-20 14:10 | Physical Therapy Daily Note ---
PT Daily Note-Current Subjective Pt found seated in recliner upon entry. Agreed to PT. Reports R hip soreness pre-Tx that improves /c movement. Does not rate pain. Pain Section J - Health Conditions 1. Rarely or not at all 2. Occasionally 3. Frequently 4. Almost constantly 8. Unable to answer Pain Effect on Sleep: 1 Pain Interference with Therapy: 1 Pain Interference w/Day-to-Day: 1 Mental Status Patient Orientation: Normal For Age Transfers SCALE: Activities may be completed with or without assistive devices. 6-Fzenyeymkg-vqephpz completes the activity by him/herself with no assistance from a helper. 5-Set-up or Clean-up Assistance-helper sets up or cleans up; patient completes activity. [place] assists only prior to or following the activity. 4-Supervision or Touching Assistance-helper provides verbal cues and/or vignesh shannon/steadying and/or contact guard assistance as patient completes activity. Assistance may be provided throughout the activity or intermittently. 3-Partial/Moderate Assistance-helper does LESS THAN HALF the effort. [place] lifts, holds or supports trunk or limbs, but provides less than half the effort. 2-Substantial/Maximal Assistance-helper does MORE THAN HALF the effort. [place] lifts or holds trunk or limbs and provides more than half the effort. 3-Ohvuokmxh-mjktzp does ALL the effort. Patient does none of the effort to complete the activity. Or, the assistance of 2 or more helpers is required for the patient to complete the activity. If activity was not attempted, code reason: 7-Patient Refused. 9-Not Applicable-not attempted and the patient did not perform the activity before the current illness, exacerbation or injury. 10-Not Attempted due to Environmental Limitations-(lack of equipment, weather restraints, etc.). 88-Not Attempted due to Medical Conditions or Safety Concerns. Sit to Stand (QC): 6 Pt independent /c sit<->stand trfs. Weight Bearing Right Lower Extremity: Right Partial Weight Bearing (30-50#) Gait Training Does the Patient Walk?: Yes Distance: 400, 100 Walk 10 feet (QC): 6 Walk 50 ft with 2 Turns(QC): 6 Walk 150 ft (QC): 6 Gait Persons Needed: 1 Gait Assistive Device: FWW Pt independent /c gait training. Amb. 500ft total /c FWW. Stair Training Stair Training: Handrails/: 2 handrails #of Steps: 16 1 Step (curb) (QC): 6 4 Steps (QC): 6 12 Steps (QC): 6 Stairs: Pattern: Step to Pt independent /c stair training using 2 handrails. Ex[address]ises Standin way Ex=Flex, Abd, Ext, Side steps, Step-ups Standing Reps: 15 Pt tolerated exercise well /c no report of increased pain. Assessment Current Status: Good Progress Pt tolerated Tx well /c no report of increased pain. R hip stiffness improved /c gait. Demonstrated good endurance and only required short RBs between sets. Continue to progress pt as tolerated per POC to increase strength, endurance, functional ability, and decrease pain. PT Short Term Goals Short Term Goals Time Frame: Sep 22, 2022 Sit to lyin (SBA) Lying to sitting on side of be: 4 (SBA) Sit to stand: 4 (SBA) Chair/zia-zb-cfpjd transfer: 4 (SBA) Walk 10 feet: 4 (SBA) Walk 50 feet with two turns: 4 (SBA) Walk 150 feet: 4 (SBA) PT Fdc Goals Price Accuracy Supervisor Goals PT Fdc Goals Time Frame: Sep 29, 2022 Roll Left & Right (QC): 6 Sit to Lying (QC): 6 Lying-Sitting on Side/Bed(QC): 6 Sit to Stand (QC): 6 Chair/Syc-yy-Exgwe Xfer(QC): 6 Toilet Transfer (QC): 6 Car Transfer (QC): 6 Does the Patient Walk: Yes Walk 10 feet (QC): 6 Walk 50ft with 2 Turns (QC): 6 Walk 150 ft (QC): 6 Walking 10ft on Uneven Surface: 6 1 Step (curb) (QC): 4 4 Steps (QC): 4 12 Steps (QC): 88 Picking up an Object (QC): 6 (using match marker) Wheel 50 feet with 2 turns (QC: 9 Wheel 150 feet: 9 PT Plan Treatment/Plan Treatment Plan: Continue Plan of Care Treatment Plan: Bed Mobility, Education, Functional Activity Kim, Functional Strength, Group Therapy, Gait, Safety, Therapeutic Exercise, Transfers Treatment Duration: Sep 29, 2022 Frequency: At least 5 of 7 days/Wk (IRF) Estimated Hrs Per Day: 1.5 hours per day Patient and/or Family Agrees t: Yes Time Time In: 1300 Time Out: 1330 DATE: Sep 20, 2022 Total Billed Treatment Time: 30 Total Billed Treatment 1 visit FA 1x EX 1x ASHLEY JOHNSON PTA Sep 20, 2022 14:10
[2022-09-20 20:39] VITALS: BP 153/90
[2022-09-21] MEDS ORDERED: PRD10T PO (06:28)
[2022-09-21] MEDS ORDERED: ONDA4TAB11 PO (06:28)
[2022-09-21] MEDS ORDERED: OXC5T PO (06:28)
[2022-09-21] MEDS ORDERED: ASPI-1238 PO (06:28)
--- NOTE | 2022-09-21 06:29 | D/C HH Face to Face Order ---
D/C Face to Face Orders Reconcile Patient Problems Problems Reviewed?: Yes Instructions for Patient Liliane Patient Instructions/FollowUp: PCP1 week Physician to follow Patient: Jovita Arroyo Diet for Home: No Restrictions Patient Problems: Hip fracture Patient Data-Allergies,Ht & Wt Patient Allergies: Coded Allergies: No Known Drug Allergies (Verified , 08/14/18) Height (Feet): 6 Height (Inches): 3.00 Weight (Pounds): 210 Weight (Ounces): 0.0 Home Health Need/Face to Face Date of Face to Face: Sep 21, 2022 Clinical Findings: Generalized weakness and fatigue, Instability, Muscle weakness, Unsteady gait I have seen Pt dvik-kt-buzl: Yes Discharged To: Home Diagnosis/Conditions: Hip fx Patient is Homebound due to: Samantha fall risk due to instabilty, Muscle weakness Homebound Status Due to the above stated illness, injury or surgical procedure (medical condition or diagnosis) and associated clinical findings, the patient is homebound because of his/her inability to leave home except with aid of a supportive device and/or person AND leaving the home requires a considerable and taxing effort or is medically contraindicated. Pt req the following assistanc: Walker Home Health Nursing Orders Home Health Services Order: Nursing Services, Sculpture Instructor-Evaluate & Treat, Physical Therapy-Evaluate & Treat Certify Stmt I certify that this patient is under my care and that I, a nurse practitioner or a physician; a clinical nursing assistant working with me, had a face to face encounter that - meets the physician face to face encounter requirements with this patient as dated. BARRON TAO DO Sep 21, 2022 06:29
--- NOTE | 2022-09-21 06:30 | Discharge Summary ---
Diagnosis/Chief Complaint Date of Admission Sep 15, 2022 at 10:45 Date of Discharge Discharge Date: Sep 21, 2022 Discharge Diagnosis Assessment: Right Valgus Impacted Femoral Neck Fracture post op surgical fixation with 3 pins Falling episode at home Chronic weakness Chronic back pain Chronic pain pump in place Polymyalgia rheumatica Chronic steroid therapy Hypertension Sleep apnea Ulceration of scalp post MOHS surgery Acute nausea indicative of adrenal insufficiency we will increase dose of prednisone Plan: PT and OT per protocol Pain control Supportive care Fall risk 09/16/2022: Supportive care Pain control 09/17/2022: Supportive care Increase prednisone 09/18/2022: Supportive care Monitor closely 09/19/2022: Continue treatment Supportive care 09/20/2022: Discharge home tomorrow (1) Closed right hip fracture Status: Acute (2) Fall from standing Status: Acute (3) H/O prostatectomy Status: Chronic (4) COPD (chronic obstructive pulmonary disease) Status: Chronic (5) REGINE on CPAP Status: Chronic (6) HTN (hypertension) Status: Chronic Discharge Summary Discharge Physical Examination Allergies: Coded Allergies: No Known Drug Allergies (Verified , 08/14/18) Vitals & I&Os Vital Signs Date Time Temp Pulse Resp B/P (MAP) Pulse Ox O2 Delivery O2 Flow Rate FiO2 09/21/22 13:46 36.0 66 20 140/79 96 Room Air General Appearance: Alert, Oriented X3, Cooperative Respiratory: Clear to Auscultation Cardiovascular: Regular Rate Psych/Mental Status: Mental Status NL Hospital Course Was the Problem List Reviewed?: Yes Hospital course: Patient had an uneventful hospital course following hip fracture. He did have an episode of recurrent nausea due to adrenal insufficiency but that resolved with the increased dose of prednisone. Pain was well controlled minimal pain medication. Bowel regimen initiated with good return of bowel function. Overall he participated in all therapy and was able to regain enough function with use of a walker to return home. Labs (last 24 hrs) Laboratory Tests 09/16/22 06:55: White Blood Count 10.0, Red Blood Count 3.68L, Hemoglobin 10.8L, Hematocrit 32L, Mean Corpuscular Volume 88, Mean Corpuscular Hemoglobin 29, Mean Corpuscular Hemoglobin Concent 33, Red Cell Distribution Width 14.2, Platelet Count 142, Mean Platelet Volume 10.2, Immature Granulocyte % (Auto) 1, Neutrophils (%) (Auto) 79H, Lymphocytes (%) (Auto) 11L, Monocytes (%) (Auto) 7, Eosinophils (%) (Auto) 1, Basophils (%) (Auto) 0, Neutrophils # (Auto) 7.9H, Lymphocytes # (Auto) 1.1, Monocytes # (Auto) 0.7, Eosinophils # (Auto) 0.1, Basophils # (Auto) 0.0, Immature Granulocyte # (Auto) 0.1, Sodium Level 141, Potassium Level 3.7, Chloride Level 107, Carbon Dioxide Level 27, Anion Gap 7, Blood Urea Nitrogen 21H, Creatinine 0.64, Estimat Glomerular Filtration Rate 95, BUN/Creatinine Ratio 33, Glucose Level 96, Calcium Level 9.4, Corrected Calcium 10.1, Total Bilirubin 0.4, Aspartate Amino Transf (AST/SGOT) 15, Alanine Aminotransferase (ALT/SGPT) 15, Alkaline Phosphatase 36L, Total Protein 5.5L, Albumin 3.1L 09/18/22 06:06: White Blood Count 9.1, Red Blood Count 4.24L, Hemoglobin 12.2L, Hematocrit 37L, Mean Corpuscular Volume 87, Mean Corpuscular Hemoglobin 29, Mean Corpuscular Hemoglobin Concent 33, Red Cell Distribution Width 13.7, Platelet Count 172, Mean Platelet Volume 9.4, Immature Granulocyte % (Auto) 1, Neutrophils (%) (Auto) 77H, Lymphocytes (%) (Auto) 13, Monocytes (%) (Auto) 9, Eosinophils (%) (Auto) 0, Basophils (%) (Auto) 0, Neutrophils # (Auto) 7.0, Lymphocytes # (Auto) 1.2, Monocytes # (Auto) 0.8, Eosinophils # (Auto) 0.0, Basophils # (Auto) 0.0, Immature Granulocyte # (Auto) 0.1, Sodium Level 139, Potassium Level 4.0, Chloride Level 103, Carbon Dioxide Level 26, Anion Gap 10, Blood Urea Nitrogen 19H, Creatinine 0.72, Estimat Glomerular Filtration Rate 91, BUN/Creatinine Ratio 26, Glucose Level 100, Calcium Level 9.6, Corrected Calcium 10.1, Total Bilirubin 0.6, Aspartate Amino Transf (AST/SGOT) 17, Alanine Aminotransferase (ALT/SGPT) 17, Alkaline Phosphatase 42, Total Protein 6.2L, Albumin 3.4 Pending Labs Laboratory Tests 09/16/22 06:55: White Blood Count 10.0, Red Blood Count 3.68, Hemoglobin 10.8, Hematocrit 32, Mean Corpuscular Volume 88, Mean Corpuscular Hemoglobin 29, Mean Corpuscular Hemoglobin Concent 33, Red Cell Distribution Width 14.2, Platelet Count 142, Mean Platelet Volume 10.2, Immature Granulocyte % (Auto) 1, Neutrophils (%) (Auto) 79, Lymphocytes (%) (Auto) 11, Monocytes (%) (Auto) 7, Eosinophils (%) (Auto) 1, Basophils (%) (Auto) 0, Neutrophils # (Auto) 7.9, Lymphocytes # (Auto) 1.1, Monocytes # (Auto) 0.7, Eosinophils # (Auto) 0.1, Basophils # (Auto) 0.0, Immature Granulocyte # (Auto) 0.1, Sodium Level 141, Potassium Level 3.7, Chloride Level 107, Carbon Dioxide Level 27, Anion Gap 7, Blood Urea Nitrogen 21, Creatinine 0.64, Estimat Glomerular Filtration Rate 95, BUN/Creatinine Ratio 33, Glucose Level 96, Calcium Level 9.4, Corrected Calcium 10.1, Total Bilirubin 0.4, Aspartate Amino Transf (AST/SGOT) 15, Alanine Aminotransferase (ALT/SGPT) 15, Alkaline Phosphatase 36, Total Protein 5.5, Albumin 3.1 09/18/22 06:06: White Blood Count 9.1, Red Blood Count 4.24, Hemoglobin 12.2, Hematocrit 37, Christy n Corpuscular Volume 87, Mean Corpuscular Hemoglobin 29, Mean Corpuscular Hemoglobin Concent 33, Red Cell Distribution Width 13.7, Platelet Count 172, Mean Platelet Volume 9.4, Immature Granulocyte % (Auto) 1, Neutrophils (%) (Auto) 77, Lymphocytes (%) (Auto) 13, Monocytes (%) (Auto) 9, Eosinophils (%) (Auto) 0, Basophils (%) (Auto) 0, Neutrophils # (Auto) 7.0, Lymphocytes # (Auto) 1.2, Monocytes # (Auto) 0.8, Eosinophils # (Auto) 0.0, Basophils # (Auto) 0.0, Immature Granulocyte # (Auto) 0.1, Sodium Level 139, Potassium Level 4.0, Chloride Level 103, Carbon Dioxide Level 26, Anion Gap 10, Blood Urea Nitrogen 19, Creatinine 0.72, Estimat Glomerular Filtration Rate 91, BUN/Creatinine Ratio 26, Glucose Level 100, Calcium Level 9.6, Corrected Calcium 10.1, Total Bilirubin 0.6, Aspartate Amino Transf (AST/SGOT) 17, Alanine Aminotransferase (ALT/SGPT) 17, Alkaline Phosphatase 42, Total Protein 6.2, Albumin 3.4 Discharge Home Medications: Active Scripts Active Prednisone 10 Mg Tab 40 Mg PO DAILY@0700 take 4 pills once daily for 1 day then 3 pills once daily for 1 day then 2 pills once daily for 1 day then remain on 1 pill daily Ondansetron Odt (Ondansetron) 4 Mg Tab.rapdis 4 Mg PO Q6H PRN Oxyir Tablet (Oxycodone HCl) 5 Mg Tab 5 Mg PO Q8H PRN Aspirin EC (Aspirin) 81 Mg Tablet.dr 81 Mg PO BID WITH MEALS Reported Benadryl (Diphenhydramine HCl) 25 Mg Capsule 50 Mg PO HS TAKES 2 (25MG) CAPS Miralax (Polyethylene Glycol 3350) 17 Gram Powd.pack 17 Gm PO DAILY Tylenol Extra Strength (Acetaminophen) 500 Mg Tablet 1,000 Mg PO Q8H PRN Wixela 250-50 Inhub (Fluticasone Propion/Salmeterol) 250 Mcg-50 Mcg/Dose Blst.w.dev 1 Puff INH DAILY Cozaar (Losartan Potassium) 100 Mg Tablet 100 Mg PO DAILY Ventolin Hfa (Albuterol Sulfate) 1 Puff Puff 2 Puff INH Q4H PRN Instructions to patient/family Please see electronic discharge instructions given to patient. Diagnosis/Problems Diagnosis/Problems (1) Closed right hip fracture Status: Acute (2) Fall from standing Status: Acute (3) H/O prostatectomy Status: Chronic (4) COPD (chronic obstructive pulmonary disease) Status: Chronic (5) REGINE on CPAP Status: Chronic (6) HTN (hypertension) Status: Chronic BARRON TAO DO Sep 21, 2022 06:29
[2022-09-21] MEDS: predniSONE 10 MG TAB PO SCH (07:00)
[2022-09-21 07:42] VITALS: BP 140/79
[2022-09-21] MEDS: DOCUSATE SODIUM 100 MG (COLACE) CAP PO SCH (08:35)
[2022-09-21] MEDS: ASPIRIN E.C. 81 MG (ECOTRIN) TAB PO SCH (08:35)
[2022-09-21] MEDS: SENNA W/DOCUSATE (SENOKOT S) TABLET PO SCH (08:35)
[2022-09-21] MEDS: PANTOPRAZOLE 40 MG (PROTONIX) TAB PO SCH (08:35)
[2022-09-21] MEDS: ENOXAPARIN 40 MG/0.4 ML (LOVENOX) SYR SQ SCH (08:36)
[2022-09-21] MEDS: polyethylene glycoL POWDER 17 GM (MIRALAX) PACK PO SCH (08:36)
[2022-09-21] MEDS: HYPOCHLOROUS ACID/NaCl (VASHE) 250 ML IR SCH (10:31)
--- NOTE | 2022-09-21 11:24 | Therapy Team Discharge Summary ---
Therapy Discharge Summary Discharge Recommendations Date of Discharge Therapy D/C Recommendations: Home w/ Family Support Physical Therapy Roll Left to Right (QC): 6 Sit to Lying (QC): 6 Lying to Sitting/Side of Bed(Q: 6 Sit to Stand (QC): 6 Chair/Yrt-ad-Akcwc Xfer(QC): 6 Toilet Transfer (QC): 5 Car Transfer (QC): 6 Does the Patient Walk: Yes Mode of Locomotion: Walk Anticipated Mode of Locomotion: Walk Walk 10 feet (QC): 6 Walk 50 ft with 2 Turns(QC): 6 Walk 150 ft (QC): 6 Walking 10ft on uneven surface: 6 Distance: 100' Gait Assistive Device: FWW Does the Pt Use a Wheelchair: No Wheel 50 ft with 2 turns (QC): 9 Wheel 150 ft (QC): 9 #of Steps: 16 1 Step (curb) (QC): 6 4 Steps (QC): 6 12 Steps (QC): 6 Walking Assistive Device: Walker Balance Sitting Static: Normal Balance Sitting Dynamic: Normal Balance-Standing Static: Good Picking up an Object (QC): 6 Occupational Therapy Pt admitted to [facility] s/p Right Hip Surgical Fixation with Pinning. At time of evaluation he was indep with all adls except bathing which he was set up for. During his rehab stay, OT focused on adherence to weight bearing restrictions, energy conservation, safety, strengthening, and endurance in order to improve performance and indep in functional activities. Pt made good progress and met all of his terminal worker goals. See below for current levels of assist. Pt will be discharging from this facility today and will be discharged from OT at this time. Decreased Activ Tolerance, Decreased Safety Aware, Decreased UE Strength Eating (QC): 6 Oral Hygiene (QC): 6 Shower/Bathe Self (QC): 5 Upper Body Dressing (QC): 6 Lower Body Dressing (QC): 6 On/Off Footwear (QC): 6 Toileting Hygiene (QC): 6 PT Fdc Goals Worm Sorter Goals PT Fdc Goals Time Frame: Sep 29, 2022 Roll Left to Right (QC): 6 Sit to Lying (QC): 6 Lying-Sitting on Side/Bed(QC): 6 Sit to Stand (QC): 6 Chair/Gds-ym-Eqgjd Xfer(QC): 6 Toilet/Commode Transfer (QC): 6 Car Transfer (QC): 6 Does the Patient Walk: Yes Walk 10 feet (QC): 6 Walk 10ft-Uneven Surface(QC): 6 Walk 50ft with 2 Turns (QC): 6 Walk 150 ft (QC): 6 Wheel 50 feet with 2 turns (QC: 9 Wheel 150 feet: 9 1 Step (curb) (QC): 4 4 Steps (QC): 4 12 Steps (QC): 88 Picking up an Object (QC): 6 (using admin assistant) OT Fdc Goals Worm Sorter Goals Time Frame: Sep 21, 2022 Acute change in mental status: 0 Inattention: 0 Disorganized thinkin Altered level of consciousness: 0 Eating (QC): 6 Oral Hygiene (QC): 6 Toileting Hygiene (QC): 6 Shower/Bathe Self (QC): 5 Upper Body Dressing (QC): 6 Lower Body Dressing (QC): 6 On/Off Footwear (QC): 6 Additional Goals: 1-Demonstrate ADL Tasks, 2-Verbalize Understanding, 3- ImproveStrength/Kim 1=Demonstrate adherence to instructed precautions during ADL tasks. 2=Patient will verbalize/demonstrate understanding of assistive devices/modifications for ADL. 3=Patient will improve strength/tolerance for activity to enable patient to perform ADL's. Lisbeth Duckworth OT Sep 21, 2022 11:24
--- NOTE | 2022-09-21 11:40 | Therapy Team Discharge Summary ---
Therapy Discharge Summary Discharge Recommendations Date of Discharge Therapy D/C Recommendations: Home w/ Family Support Physical Therapy Patient came to rehab with right hip surgical fixation with pinning. Upon evaluation patient performs rolling with SBA, supine <-> sit min assist, sit <-> stand and transfers CGA, car transfer CGA, ambulate 100' with a rolling walker with CGA (including 50' with at least 2 turns of 90 degrees and 10' over an uneven surface, up and down 1 step using a rolling walker with CGA, and picked up an object from the floor using a photo retoucher with CGA. Patient has been performing bed mobility and transfer training, balance and endurance training, functional strengthening, stair training, gait training, and education. 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 Now, patient performs rolling and supine <-> sit with independence, sit <-> stand and transfers independent, car transfer independent, ambulates 300' with a rolling walker with independence (including 50' with at least 2 turns of 90 degrees and 10' over an uneven surface), can go up and down 12 steps using 2 handrails with independence, and can cotton picking machine operator an object from the floor using a photo retoucher with independence. Patient is being discharged from this facility today and will be discharged from PT at this time. Roll Left to Right (QC): 6 Sit to Lying (QC): 6 Lying to Sitting/Side of Bed(Q: 6 Sit to Stand (QC): 6 Chair/Rgf-by-Ezwwa Xfer(QC): 6 Toilet Transfer (QC): 5 Car Transfer (QC): 6 Does the Patient Walk: Yes Mode of Locomotion: Walk Anticipated Mode of Locomotion: Walk Walk 10 feet (QC): 6 Walk 50 ft with 2 Turns(QC): 6 Walk 150 ft (QC): 6 Walking 10ft on uneven surface: 6 Distance: 100' Gait Assistive Device: FWW Does the Pt Use a Wheelchair: No Wheel 50 ft with 2 turns (QC): 9 Wheel 150 ft (QC): 9 #of Steps: 16 1 Step (curb) (QC): 6 4 Steps (QC): 6 12 Steps (QC): 6 Walking Assistive Device: Walker Balance Sitting Static: Normal Balance Sitting Dynamic: Normal Balance-Standing Static: Good Picking up an Object (QC): 6 Occupational Therapy Decreased Activ Tolerance, Decreased Safety Aware, Decreased UE Strength Eating (QC): 6 Oral Hygiene (QC): 6 Shower/Bathe Self (QC): 5 Upper Body Dressing (QC): 6 Lower Body Dressing (QC): 6 On/Off Footwear (QC): 6 Toileting Hygiene (QC): 6 PT Occupational Therapy Program Director Goals Occupational Therapy Program Director Goals PT Snf Goals Time Frame: Sep 29, 2022 Roll Left to Right (QC): 6 Sit to Lying (QC): 6 Lying-Sitting on Side/Bed(QC): 6 Sit to Stand (QC): 6 Chair/Rhu-xp-Hrmfk Xfer(QC): 6 Toilet/Commode Transfer (QC): 6 Car Transfer (QC): 6 Does the Patient Walk: Yes Walk 10 feet (QC): 6 Walk 10ft-Uneven Surface(QC): 6 Walk 50ft with 2 Turns (QC): 6 Walk 150 ft (QC): 6 Wheel 50 feet with 2 turns (QC: 9 Wheel 150 feet: 9 1 Step (curb) (QC): 4 4 Steps (QC): 4 12 Steps (QC): 88 Picking up an Object (QC): 6 (using photo retoucher) OT Occupational Therapy Program Director Goals Occupational Therapy Program Director Goals Time Frame: Sep 21, 2022 Acute change in mental status: 0 Inattention: 0 Disorganized thinkin Altered level of consciousness: 0 Eating (QC): 6 Oral Hygiene (QC): 6 Toileting Hygiene (QC): 6 Shower/Bathe Self (QC): 5 Upper Body Dressing (QC): 6 Lower Body Dressing (QC): 6 On/Off Footwear (QC): 6 Additional Goals: 1-Demonstrate ADL Tasks, 2-Verbalize Understanding, 3- ImproveStrength/Kim 1=Demonstrate adherence to instructed precautions during ADL tasks. 2=Patient will verbalize/demonstrate understanding of assistive devices/modifications for ADL. 3=Patient will improve strength/tolerance for activity to enable patient to perform ADL's. AYDIN KHAN PT Sep 21, 2022 11:40
[2022-09-21 13:46] VITALS: BP 140/79
== END 2022-09-21 13:40 | disposition home health service (06) | DRG 560 ==
PROVIDERS: ADMIT Internal Medicine; ATTEND Internal Medicine
DX: S72.001D Fracture of unspecified part of neck of right femur, subsequent encounter for closed fracture with routine healing (principal); E27.40 Unspecified adrenocortical insufficiency; G47.33 Obstructive sleep apnea (adult) (pediatric); E78.00 Pure hypercholesterolemia, unspecified; I10 Essential (primary) hypertension; K57.90 Diverticulosis of intestine, part unspecified, without perforation or abscess without bleeding; M35.3 Polymyalgia rheumatica; L98.499 Non-pressure chronic ulcer of skin of other sites with unspecified severity; Z79.52 Long term (current) use of systemic steroids; Z85.46 Personal history of malignant neoplasm of prostate; Z85.828 Personal history of other malignant neoplasm of skin; Z85.51 Personal history of malignant neoplasm of bladder; Z90.79 Acquired absence of other genital organ(s); W19.XXXD Unspecified fall, subsequent encounter
CPT/HCPCS: 36415; 80053; 85025

== ENCOUNTER → 2022-09-28 | Outpatient (CLI) | payer MEDICARE ==
[~2022-09-28] MED LIST changes: +ASPI-1238 PO; +OXC5T PO
== END ==
LOC: ORTHO 09:10
PROVIDERS: ATTEND Orthopaedic Surgery
DX: Z09 Encounter for follow-up examination after completed treatment for conditions other than malignant neoplasm (principal)

== ENCOUNTER → 2022-10-31 | Outpatient (CLI) | payer MEDICARE ==
--- NOTE | 2022-10-31 17:25 | Diagnostic Imaging Report ---
INDICATION: Follow-up orthopedic assessment. COMPARISON: 09/14/2022. TECHNIQUE: 2 radiographs of the right hip dated 10/31/2022 FINDINGS: 3 partially cannulated screws are noted transfixing previously noted right femoral neck fracture. Alignment appears stable from the prior examination. Increasing sclerosis is noted at the level of the fracture plane. No evidence of hardware complication. No new fracture or dislocation. Surgical clips seen overlying the right lower pelvis are stable. IMPRESSION: Slight interval, though incomplete healing, of internally fixated right femoral neck fracturing which remains in stable alignment without hardware complication. No new acute osseous abnormality. Dictated by: Dictated on workstation # [id number]
== END ==
LOC: ORTHO 11:22
PROVIDERS: ATTEND Orthopaedic Surgery
DX: Z47.89 Encounter for other orthopedic aftercare (principal); S72.001D Fracture of unspecified part of neck of right femur, subsequent encounter for closed fracture with routine healing; X58.XXXD Exposure to other specified factors, subsequent encounter
CPT/HCPCS: 73502

== ENCOUNTER → 2022-12-19 | Outpatient (CLI) | payer MEDICARE ==
--- NOTE | 2022-12-19 17:12 | Diagnostic Imaging Report ---
Indication: Followup right hip fracture. Time of Exam: 11:27 AM Correlation is made with prior radiograph from 10/31/2022. Postoperative changes to the right hip with 3 partially threaded screws transfixing right femoral neck again noted. Femoral acetabular alignment is normal. Further healing of the fracture of the femoral neck is noted with blurring of the fracture line along the medial cortex. Hardware is intact without fracture or loosening. IMPRESSION: Healing right femoral neck fracture. Alignment is anatomic. Dictated by: Dictated on workstation # [id number]
== END ==
LOC: ORTHO 11:12
PROVIDERS: ATTEND Orthopaedic Surgery
DX: S72.001D Fracture of unspecified part of neck of right femur, subsequent encounter for closed fracture with routine healing (principal); X58.XXXD Exposure to other specified factors, subsequent encounter
CPT/HCPCS: 73502

== ENCOUNTER 2023-08-23 17:04 | Inpatient (IN) | payer MEDICARE ==
[~2023-08-23] VITALS: Ht 188 cm; Wt 84.2 kg
[~2023-08-23 17:04] MED LIST changes: +LOSA-417 PO; -LOSA100T3 PO
[2023-08-23] MEDS ORDERED: CALCIUM CARBONATE 500 MG CHEW TABLET PO PRN (17:15)
[2023-08-23] MEDS ORDERED: BISACODYL 10 MG SUPPOSITORY PR PRN (17:15)
[2023-08-23] MEDS ORDERED: diphenhydrAMINE 25 MG TABLET PO PRN (17:15)
[2023-08-23] MEDS ORDERED: MILK OF MAGNESIA 400 MG/5 ML 30 ML UDC PO PRN (17:15)
[2023-08-23] MEDS ORDERED: ACETAMINOPHEN 325 MG TABLET PO PRN (17:15)
[2023-08-23] MEDS ORDERED: MELATONIN 3 MG TABLET PO PRN (17:15)
[2023-08-23] MEDS ORDERED: LACTULOSE SYRUP 10GM/15ML 30ML UDC PO PRN (17:15)
[2023-08-23] MEDS ORDERED: ANTACID SUSPENSION 30 ML UDC PO PRN (17:15)
[2023-08-23] MEDS ORDERED: ONDANSETRON 4 MG ORAL DISSOLVE TABLET PO PRN (17:15)
[2023-08-23] MEDS ORDERED: diphenhydrAMINE INJ 50 MG/ML VIAL IVP PRN (17:15)
--- OUTSIDE RECORDS SUMMARY | 2023-08-23 17:48 | XMS REPORT | Clinical Summary ---
Author Author [facility] Organization [facility] Address Unknown Phone Unavailable Care Team Providers Care [place] Worker Name Role Phone PCP Unavailable Social History Tobacco Use Types Packs/Day Years Used Date Smoking Tobacco: Never Assessed Sex and Gender Information Value Date Recorded Sex Assigned at Not on file Gender Identity Not on file Sexual Orientation Not on file Plan of Treatment Not on file
[2023-08-23] MEDS: NS IV 1000 ML 1,000 ML IV SCH (18:28)
--- NOTE | 2023-08-23 18:39 | Diagnostic Imaging Report ---
HISTORY: Confusion and altered mental status. COMPARISON: 09/14/2022. TECHNIQUE: Frontal view of the chest. FINDINGS: There is a moderate right pleural effusion with atelectasis. There is a small left pleural effusion. These appear new since the prior study. There is no pneumothorax. The cardiac silhouette is stable in size. Left-sided automatic implantable cardiac defibrillator leads are normal. IMPRESSION: Moderate right and small left pleural effusions. Dictated by: Dictated on workstation # [id number]
[2023-08-23 19:04] LABS: BASOPHILS % (AUTO) 0 % (0-10); EOSINOPHILS % (AUTO) 0 % (0-10); HEMATOCRIT 25 % (40-54); HEMOGLOBIN 7.6 g/dL (13.3-17.7); LYMPHOCYTES # (AUTO) 0.2 10^3/uL (1.0-4.0); LYMPHOCYTES % (AUTO) 2 % (12-44); MEAN CORPUSCULAR HEMOGLOBIN 27 pg (25-34); MEAN CORPUSCULAR HGB CONC 31 g/dL (32-36); MEAN CORPUSCULAR VOLUME 87 fL (80-99); MEAN PLATELET VOLUME 8.9 fL (9.0-12.2); MONOCYTES # (AUTO) 0.3 10^3/uL (0.0-1.0); MONOCYTES % (AUTO) 3 % (0-12); NEUTROPHILS # (AUTO) 9.2 10^3/uL (1.8-7.8); NEUTROPHILS % (AUTO) 91 % (42-75); PLATELET COUNT 231 10^3/uL (130-400); WHITE BLOOD COUNT 10.1 10^3/uL (4.3-11.0)
[2023-08-23 19:10] LABS: ALBUMIN 2.9 GM/DL (3.2-4.5); POTASSIUM 4.6 MMOL/L (3.6-5.0)
[2023-08-23 19:11] LABS: CALCIUM 8.7 MG/DL (8.5-10.1)
[2023-08-23 19:13] LABS: TOTAL PROTEIN 5.3 GM/DL (6.4-8.2)
[2023-08-23 19:14] LABS: BILIRUBIN,TOTAL 0.4 MG/DL (0.1-1.0)
[2023-08-23 19:16] LABS: CREATININE SERUM 0.74 MG/DL (0.60-1.30)
[2023-08-23] MEDS: SENNOSIDES 8.6 MG TABLET PO SCH (19:40)
[2023-08-23] MEDS: DOCUSATE SODIUM 100 MG CAPSULE PO SCH (19:40)
[2023-08-23 19:49] VITALS: BP 147/84
[2023-08-23 19:54] VITALS: BP 147/84
[2023-08-23 19:56] LABS: HYPOCHROMASIA MODERATE; LYMPHOCYTES % (MANUAL) 5 %; MICROCYTOSIS MODERATE; MONOCYTES % (MANUAL) 1 %; NEUTROPHILS % (MANUAL) 94 %; POIKILOCYTOSIS SLIGHT; POLYCHROMASIA SLIGHT
[2023-08-23] MEDS: HYDROmorphone INJECTION 2 MG/ML VIAL IV PRN (19:57)
[2023-08-23] MEDS ORDERED: NS IV 500 ML 500 ML IV SCH (20:15)
[2023-08-23] MEDS ORDERED: RT-ALBUTEROL HFA 8.5 GM INHALER IH PRN (20:15)
[2023-08-23] MEDS ORDERED: FUROSEMIDE INJECTION 40 MG/4 ML VIAL IVP ONE (20:15)
[2023-08-23] MEDS ORDERED: oxyCODONE IMMEDIATE RELEASE 5 MG TABLET PO PRN (20:45)
[2023-08-23 21:28] VITALS: BP 151/82
[2023-08-23 21:43] VITALS: BP 143/79
[2023-08-23 23:47] VITALS: BP 156/85
[2023-08-23] MEDS ORDERED: FUROSEMIDE INJECTION 40 MG/4 ML VIAL ONE (23:49)
[2023-08-23 23:52] VITALS: BP 156/85
[2023-08-24] VITALS (9 sets, daily range): BP systolic 144–171; BP diastolic 68–85
[2023-08-24 00:27] LABS: BILIRUBIN,URINE NEGATIVE (NEGATIVE); CLARITY,URINE CLEAR; COLOR,URINE YELLOW; GLUCOSE, URINE (UA) NEGATIVE (NEGATIVE); KETONES,URINE NEGATIVE (NEGATIVE); LEUKOCYTE ESTERASE ,URINE NEGATIVE (NEGATIVE); NITRITE,URINE NEGATIVE (NEGATIVE); PH,URINE 5.5 (5-9); PROTEIN,URINE TRACE (NEGATIVE); WBC,URINE 0-2 /HPF
[2023-08-24 00:28] LABS: AMORPHOUS SEDIMENT,UR FEW AMOR URATES /LPF; BACTERIA,URINE TRACE /HPF; HYALINE CASTS, URINE 0-2 /LPF; SQUAMOUS EPITHELIAL CELL,UR NEG /HPF
[2023-08-24] MEDS: HYDROcodone/ACETAMINOPHEN 5 MG/325 MG TABLET PO PRN ×2 (03:21→08:37)
[2023-08-24 05:49] LABS: BASOPHILS % (AUTO) 0 % (0-10); EOSINOPHILS % (AUTO) 0 % (0-10); HEMATOCRIT 28 % (40-54); LYMPHOCYTES # (AUTO) 0.9 10^3/uL (1.0-4.0); LYMPHOCYTES % (AUTO) 8 % (12-44); MEAN CORPUSCULAR HEMOGLOBIN 27 pg (25-34); MEAN CORPUSCULAR HGB CONC 32 g/dL (32-36); MEAN CORPUSCULAR VOLUME 87 fL (80-99); MEAN PLATELET VOLUME 8.7 fL (9.0-12.2); MONOCYTES # (AUTO) 0.9 10^3/uL (0.0-1.0); MONOCYTES % (AUTO) 8 % (0-12); NEUTROPHILS # (AUTO) 9.2 10^3/uL (1.8-7.8); NEUTROPHILS % (AUTO) 80 % (42-75); PLATELET COUNT 224 10^3/uL (130-400); WHITE BLOOD COUNT 11.4 10^3/uL (4.3-11.0)
[2023-08-24 05:50] LABS: ALBUMIN 2.8 GM/DL (3.2-4.5)
[2023-08-24 05:51] LABS: POTASSIUM 4.2 MMOL/L (3.6-5.0)
[2023-08-24 05:52] LABS: CALCIUM 8.6 MG/DL (8.5-10.1)
[2023-08-24 05:53] LABS: TOTAL PROTEIN 5.1 GM/DL (6.4-8.2)
[2023-08-24 05:55] LABS: BILIRUBIN,TOTAL 0.7 MG/DL (0.1-1.0)
[2023-08-24 05:57] LABS: CREATININE SERUM 0.7 MG/DL (0.60-1.30)
[2023-08-24] MEDS: NS IV 1000 ML 1,000 ML IV SCH ×2 (07:30→21:07)
[2023-08-24] MEDS: DOCUSATE SODIUM 100 MG CAPSULE PO SCH ×2 (08:37→19:43)
[2023-08-24] MEDS: SENNOSIDES 8.6 MG TABLET PO SCH ×2 (08:37→19:43)
[2023-08-24] MEDS ORDERED: PANTOPRAZOLE 40 MG TABLET PO ONE (10:30)
--- NOTE | 2023-08-24 10:30 | History & Physical ---
History of Present Illness HPI/Chief Complaint Chief complaint: Severe weakness with severe anemia HPI: This is an 83-year-old male clinic patient of Dr. 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 He resides at home with his . He has been prednisone dependent for 30 years. He reports that he needs a higher dose of steroids in order to help him with his severe muscle pain. We will restart home medications. His hemoglobin was 7.6 and he received 2 units of blood and feels much better and is hemoglobin is 9.0 Source: patient Exam Limitations: clinical condition Date Seen 08/24/23 Time Seen by a Provider: 10:00 Attending Physician Beverly Hussein MD PCP Admitting Physician: Marina Tao DO Attending Physician: Marina Tao DO Referring Physician Date of Admission Aug 23, 2023 at 17:40 Home Medications & Allergies Home Medications Reviewed patient Home Medication Reconciliation performed by pharmacy medication reconciliations food quality technician and/or nursing. Patients Allergies have been reviewed. Allergies Allergies Coded Allergies No Known Drug Allergies (Bsiorsvr73/21/18) Past Dtxansx-Etchct-Ttaypi Hx Past Med/Social Hx: Reviewed Nursing Past Med/Soc Hx, Reviewed and Corrections made Patient Social History Marrital Status: Employed/Student: retired Alcohol Use: Denies Use Smoking Status: Never a Smoker 2nd Hand Smoke Exposure: No Recent Hopitalizations: No (OUT 08/10/18) Immunizations Up To Date Tetanus Booster (TDap): Unknown Pediatric: Yes Date of Pneumonia Vaccine: Jul 15, 2016 Date of Influenza Vaccine: Jul 29, 2018 Seasonal Allergies Seasonal Allergies: Yes Past Medical History Surgeries: Cardiac, Gallbladder, Prostatectomy Respiratory: Sleep Apnea Currently Using CPAP: Yes Currently Using BIPAP: No Cardiac: High Cholesterol, Hypertension Reproductive: No Sexually Transmitted Disease: No HIV/AIDS: No Genitourinary: Prostate Problems, Kidney Stones Gastrointestinal: Diverticulosis Musculoskeletal: Degenerate Disk Disease, Arthritis, Scoliosis, Chronic Back Pain Loss of Vision: Denies Hearing Impairment: Denies Cancer: Bladder, Prostate, Skin Did You Recieve Any Treatments: Yes What Type of Treatment Did You: Surgical Intervention History of Blood Disorders: No Adverse Reaction to Blood [place]: No Family History Dementia 19 MOTHER FH: lung cancer 19 FATHER Heart Disease, Cancer, Hypertension, Lung Disease, Other Conditions/Hx Review of Systems Constitutional: see HPI, dizziness, malaise, weakness EENTM: no symptoms reported Respiratory: no symptoms reported Cardiovascular: no symptoms reported Gastrointestinal: no symptoms reported Genitourinary: no symptoms reported Musculoskeletal: back pain, joint pain Skin: no symptoms reported Psychiatric/Neurological: No Symptoms Reported All Other Systems Reviewed Negative Unless Noted: Yes Physical Exam Physical Exam Vital Signs Vital Signs - First Documented 08/23/23 08/23/23 08/23/23 08/24/23 17:56 19:49 19:54 23:17 Temp 36.4 Pulse 85 Resp 20 B/P (MAP) 147/84 (105) Pulse Ox 93 O2 Delivery Room Air O2 Flow Rate 2.00 FiO2 21 Capillary Refill : Height, Weight, BMI Height: 6'3.00" Weight: 210lbs. 0.0oz. [id number]; 23.82 BMI Method:Stated General Appearance: No Apparent Distress, WD/WN, Chronically ill Eyes: Bilateral Eye Normal Inspection, Bilateral Eye PERRL HEENT: PERRL/EOMI, Normal ENT Inspection, Pharynx Normal Neck: Full Range of Motion, Normal Inspection, Non Tender, Supple, Carotid Bruit Respiratory: Chest Non Tender, Lungs Clear, Normal Breath Sounds, No Accessory Muscle Use, No Respiratory Distress Cardiovascular: Regular Rate, Rhythm, No Edema, No Gallop, No JVD, No Murmur, Normal Peripheral Pulses Gastrointestinal: Normal Bowel Sounds, No Organomegaly, No Pulsatile Mass, Non Tender, Soft Back: Normal Inspection, No CVA Tenderness, No Vertebral Tenderness Extremity: Normal Capillary Refill, Normal Inspection, Normal Range of Motion, Non Tender, No Calf Tenderness, No Pedal Edema Neurologic/Psychiatric: Alert, Oriented x3, Normal Mood/Affect, inspector crystal II-XII Norm as Tested, Abnormal Gait, Motor Weakness (Generalized) Skin: Normal Color, Warm/Dry, Other ( healing scalp skin graft) Lymphatic: No Adenopathy Results Results/Procedures Labs Laboratory Tests 08/23/23 18:49 08/23/23 18:59 08/24/23 05:11 Patient resulted labs reviewed. Assessment/Plan Admission Diagnosis Assessment: Severe weakness with falls Severe anemia requiring 2 units of blood History of right Valgus Impacted Femoral Neck Fracture post op surgical fixation with 3 pins 08/2022 Chronic weakness Chronic back pain Chronic pain pump in place Polymyalgia rheumatica Chronic steroid therapy Hypertension Sleep apnea Ulceration of scalp post MOHS surgery and skin grafting Acute nausea indicative of adrenal insufficiency we will increase dose of prednisone Plan: Home meds Increase steroids to 60 mg Home pain medication PT and OT Consult Dr. Banuelos for Hemoccult positive stools PPI Admission Status: Inpatient Order (span 2 midnights) Reason for Inpatient Admission: Severe weakness with signs of adrenal insufficiency and severe anemia requiring transfusion Clinical Quality Measures DVT/VTE Risk/Contraindication: Contraindications-Pharm: Other *list below* Other: severe anemia MARINA TAO DO Aug 24, 2023 10:30
--- NOTE | 2023-08-24 10:44 | Physical Therapy Evaluation ---
PT Evaluation-General Medical Diagnosis Admission Date Aug 23, 2023 at 17:40 Medical Diagnosis: Anemia Onset Date: Aug 23, 2023 Therapy Diagnosis Therapy Diagnosis: generalized weakness/debility Height/Weight Height (Feet): 6 Height (Inches): 3.00 Weight (Pounds): 210 Weight (Ounces): 0.0 Precautions Precautions/Isolations: Standard Precautions Referral Physician: Cyndee Reason for Referral: Evaluation/Treatment Medical History Pertinent Medical History: HTN Current History Direct admit from physician's office Reviewed History: Yes Social History Home: Single Level Current Living Status: Spouse PT Steps Into Home: 2 Prior Prior Level of Function SCALE: Activities may be completed with or without assistive devices. 1-Bdygvxxuhh-nzwgcwp completes the activity by him/herself with no assistance from a helper. 5-Set-up or Clean-up Assistance-helper sets up or cleans up; patient completes activity. [place] assists only prior to or following the activity. 4-Supervision or Touching Assistance-helper provides verbal cues and/or touching/steadying and/or contact guard assistance as patient completes activity. Assistance may be provided throughout the activity or intermittently. 3-Partial/Moderate Assistance-helper does LESS THAN HALF the effort. Gregory lift s, holds or supports trunk or limbs, but provides less than half the effort. 2-Substantial/Maximal Assistance-helper does MORE THAN HALF the effort. [place] lifts or holds trunk or limbs and provides more than half the effort. 0-Hruwmrceu-bpewcj does ALL the effort. Patient does none of the effort to complete the activity. Or, the assistance of 2 or more helpers is required for the patient to complete the activity. If activity was not attempted, code reason: 7-Patient Refused. 9-Not Applicable-not attempted and the patient did not perform the activity before the current illness, exacerbation or injury. 10-Not Attempted due to Environmental Limitations-(lack of equipment, weather restraints, etc.). 88-Not Attempted due to Medical Conditions or Safety Concerns. Bed Mobility: 6 Transfers (B,C,W/C): 6 Gait: 6 Stairs: 6 Indoor Mobility (Ambulation): Independent Stairs: Independent Prior Devices Use: Walker PT Evaluation-Current Subjective Patient reports he has had multiple falls since his recent surgery on his scalp. Objective Patient Orientation: Normal For Age Attachments: IV ROM/Strength ROM Lower Extremities bilateral LE WFL Strength Lower Extremities 3+/5 grossly bilateral LE all planes Integumentary/Posture Integumentary refer to nursing notes Bowel Incontinence: No Bladder Incontinence: No Posture WFL Neuromuscular (Tone, Coordination, Reflexes) grossly intact Sensory Vision: Wears Glasses Hearing: Impaired Transfers Lying to Sitting/Side of Bed(Q: 4 Sit to Stand (QC): 4 Chair/Bup-uj-Ootui Xfer(QC): 4 Gait Mode of Locomotion: Walk Anticipated Mode of Locomotion: Walk Walk 10 feet (QC): 4 Walk 50 ft with 2 Turns(QC): 4 Walk 150 ft (QC): 4 Distance: 225' Gait Assistive Device: FWW Comments/Gait Description flexed knee posture with ambulation with FWW use Balance Sitting Static: Normal Sitting Dynamic: Normal Standing Static: Fair Standing Dynamic: Fair Assessment/Needs Patient will benefit from skilled PT to address functional strength and mobility to improve current LOF to safely return to home with spouse at maximum LOF. Rehab Potential: Fair PT Legal Transcriber Goals Legal Transcriber Goals PT Legal Transcriber Goals Time Frame: Sep 08, 2023 Roll Left & Right (QC): 6 Sit to Lying (QC): 6 Lying-Sitting on Side/Bed(QC): 6 Sit to Stand (QC): 6 Chair/Iya-vv-Wzpbw Xfer(QC): 6 Toilet Transfer (QC): 6 Walk 10 feet (QC): 6 Walk 50ft with 2 Turns (QC): 6 Walk 150 ft (QC): 6 1 Step (curb) (QC): 4 4 Steps (QC): 4 PT Plan Problem List Problem List: Activity Tolerance, Functional Strength, Safety, Balance, Gait, Transfer, Bed Mobility Treatment/Plan Treatment Plan: Continue Plan of Care Treatment Plan: Bed Mobility, Education, Functional Activity Kim, Functional Strength, Gait, Safety, Therapeutic Exercise, Transfers Treatment Duration: Sep 08, 2023 Frequency: 6 times per week Estimated Hrs Per Day: .25 hour per day Patient and/or Family Agrees t: Yes Time Time In: 900 Time Out: 918 DATE: Aug 24, 2023 Total Billed Treatment Time: 18 Total Billed Treatment 1 visit EVModC 18 min HAKAN BARRY PT Aug 24, 2023 10:44
--- NOTE | 2023-08-24 10:57 | Occupational Therapy Eval ---
OT Evaluation-General/PLF Medical Diagnosis Admission Date Aug 23, 2023 at 17:40 Medical Diagnosis: Anemia Onset Date: Aug 23, 2023 Therapy Diagnosis Therapy Diagnosis: weakness, light headed, nausea Height/Weight Height (Feet): 6 Height (Inches): 3.00 Weight (Pounds): 210 Weight (Ounces): 0.0 Precautions Precautions/Isolations: Fall Prevention, Standard Precautions Weight Bear Status Weight Bearing Restriction: Full Weight Bearing Referral Physician: Cyndee Referral Reason: Evaluation/Treatment Medical History Pertinent Medical History: HTN Current History Patient report few weeks ago , cranial mass removal w/ graft, skin donor site, right thigh Reviewed History: Yes Social History Home: Single Level Current Living Status: Spouse Steps Into Home: 2 ADL-Prior Level of Function SCALE: Activities may be completed with or without assistive devices. 9-Vpfnrooxon-sfldhav completes the activity by him/herself with no assistance from a helper. 5-Set-up or Clean-up Assistance-helper sets up or cleans up; patient completes activity. [place] assists only prior to or following the activity. 4-Supervision or Touching Assistance-helper provides verbal cues and/or touching/steadying and/or contact guard assistance as patient completes activity. Assistance may be provided throughout the activity or intermittently. 3-Partial/Moderate Assistance-helper does LESS THAN HALF the effort. [place] lifts, holds or supports trunk or limbs, but provides less than half the effort. 2-Substantial/Maximal Assistance-helper does MORE THAN HALF the effort. [place] lifts or holds trunk or limbs and provides more than half the effort. 6-Mhmiwonyx-pefohu does ALL the effort. Patient does none of the effort to complete the activity. Or, the assistance of 2 or more helpers is required for the patient to complete the activity. If activity was not attempted, code reason: 7-Patient Refused. 9-Not Applicable-not attempted and the patient did not perform the activity before the current illness, exacerbation or injury. 10-Not Attempted due to Environmental Limitations-(lack of equipment, weather restraints, etc.). 88-Not Attempted due to Medical Conditions or Safety Concerns. Self Care: Independent Functional Cognition: Independent Drive Self: No OT Current Status Subjective c/o nausea, agreeable to participate Mental Status/Objective Patient Orientation: Person, Place, Time, Situation Attachments: IV Current Glasses/Contacts: Yes Hand Dominance: Right Upper Extremity ROM BUE ROM WFLS Upper Extremity Coordination BUE FMC/GMC INTACT Upper Extremity Strength -4/5 grossly ADL-Treatment Eating (QC): 6 Oral Hygiene (QC): 5 Shower/Bathe Self (QC): 7 Upper Body Dressing (QC): 7 Lower Body Dressing (QC): 3 On/Off Footwear (QC): 3 Toileting Hygiene (QC): 3 Education OT Patient Education: Correct positioning, Exercise program, Modified ADL techniques, Progress toward Goal/Update tx plan, Purpose of tx/functional activities, Reviewed precautions, Rehab process, Safety issues, Transfer techniques Teaching Recipient: Patient Teaching Methods: Demonstration, Discussion Response to Teaching: Verbalize Understanding, Reinforcement Needed OT [facility] Goals [place] Goals Eating (QC): 6 Oral Hygiene (QC): 6 Toileting Hygiene (QC): 6 Shower/Bathe Self (QC): 4 Upper Body Dressing (QC): 6 Lower Body Dressing (QC): 6 On/Off Footwear (QC): 6 1=Demonstrate adherence to instructed precautions during ADL tasks. 2=Patient will verbalize/demonstrate understanding of assistive devices/modifications for ADL. 3=Patient will improve strength/tolerance for activity to enable patient to perform ADL's. OT Education/Plan Problem List/Assessment Assessment: Decreased Activ Tolerance, Decreased UE Strength, Impaired Self- Care Skills Discharge Recommendations Plan/Recommendations: Continue POC Treatment Plan/Plan of Care Treatment,Training & Education: Yes Patient would benefit from OT for education, treatment and training to promote independence in ADL's, mobility, safety and/or upper extremity function for ADL's. Plan of Care: ADL Retraining, Functional Mobility, Group Exercise/Act as Ind, UE Funct Exercise/Act Treatment Duration: Aug 28, 2023 Frequency: 3 times per week (3-5 times per week) Estimated Hrs Per Day: .25 hour per day Agreement: Yes Rehab Potential: Fair Time Start Time: 09:00 Stop Time: 09:20 DATE: Aug 24, 2023 Total Time Billed (hr/min): 20 Billed Treatment Time EVM 20 min ABBY DURAND OT Aug 24, 2023 10:56
[2023-08-24] MEDS: ONDANSETRON INJECTION 4 MG/2 ML (SDV) IV PRN (11:19)
[2023-08-24] MEDS: predniSONE 20 MG TABLET PO SCH (11:19)
[2023-08-24] MEDS: HYDROmorphone INJECTION 2 MG/ML VIAL IV PRN (11:20)
--- NOTE | 2023-08-24 12:27 | CONSULTATION REPORT ---
DATE OF SERVICE: 08/24/2023 ATTENDING PRIMARY CARE PHYSICIAN: Beverly Hussein MD ADMITTING PHYSICIAN: Dr. Marina Cotter. The patient is an 83-year-old male known to us. He presented with significant abdominal pain in early 09/2018 and was found to have complicated diverticulitis with contained microperforation. We were able to treat him conservatively with bowel rest as well as IV antibiotics as well as interventional radiology drain placement. He did undergo colonoscopy where he was found to have a severe sigmoid diverticulosis and a moderate descending colonic diverticulosis. On 10/17/2018, patient underwent a laparoscopic low anterior colorectal resection with anastomosis. The patient did well with the surgery and was eventually discharged home. In the past week, he has fallen twice. On , he was in [place] and he fell on his right side sustaining four rib fractures. He was admitted to the hospital, did improve and was sent home. At home, he recently fell again, however, was able to catch himself better and fell on his left side. He did not suffer any injury after that fall. He felt weaker and has not been eating as well lately. He was found to be slightly anemic with a hemoglobin of 7.5 and did receive 2 units of packed red blood cells and his hemoglobin did increase appropriately. He has a history of an autoimmune connective tissue disorder, which does cause a global joint pain and has been on high dose steroids for over 30 years. The patient does not report any major issues with reflux and does not report any red blood per rectum, nor any dark tarry stools. Based on his history as well as medication, this is likely due to gastritis, however, stable and we will recommend conservative management for now and schedule him for an EGD as well as possible colonoscopy as an outpatient. Our task at this point is to have him increase his strength, have adequate pain control, improve his nutritional status and increase his ambulatory ability. 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 PAST SURGICAL HISTORY: Laparoscopic prostatectomy, laparoscopic low anterior colorectal resection, cardiac ablation, pacemaker implantation, open cholecystectomy, scalp lesion excision with a flap reconstruction and split thickness skin graft 06/2023. ALLERGIES: No known drug allergies. MEDICATIONS: Albuterol 1 puff q.4 hours p.r.n., aspirin 81 mg daily, diphenhydramine 25 mg each day at bedtime, losartan 100 mg daily, oxycodone 10 mg every 8 hours p.r.n., MiraLax p.r.n., prednisone 40 mg daily, Zofran p.r.n. SOCIAL HISTORY: Negative smoke, negative alcohol. FAMILY HISTORY: Noncontributory. VITAL SIGNS: Temperature 36.3, blood pressure 171/85, pulse 67, respirations 17, pulse ox 92% on room air. REVIEW OF SYSTEMS: Well-nourished male who is awake and alert and sitting upright in a chair. He is not experiencing shortness of breath or difficulty breathing. He does have a right-sided chest pain, which is reproducible upon palpation. No crepitance or any flail segment. No cardiac chest pain, intermittent episodes of nausea, no vomiting. No red blood per rectum, no dark tarry stools. No fever, chills, no recent inadvertent weight loss. All other review of systems negative. PHYSICAL EXAMINATION: CHEST: Scattered wheezes and rhonchi bilaterally. HEART: Regular. No murmurs. EXTREMITIES: No lower extremity edema. Negative Homans sign. HEENT: No scleral icterus. No cervical lymphadenopathy. ABDOMEN: Soft, nontender, nondistended. SKIN: Warm, dry. LABORATORY DATA: WBC 11.4, hemoglobin 9.0, hematocrit 28, platelets 224, BUN 24, creatinine 0.70. ASSESSMENT AND PLAN: An 83-year-old male with weakness, anemia and previous fall with 4 right rib fractures. He also has a history of autoimmune connective tissue disorder and is on high dose and has been on high dose steroids for 30 years. Our recommendation is to proceed with conservative management and proceed with physical and occupational therapy as well as proper pain control to increase his ambulatory ability as well as nutritional status. 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 He may also proceed with diet as tolerated. From our standpoint, he also does not have any restrictions as well. Job ID: [id number] DocumentID: [id number] Dictated Date: 08/24/2023 11:54:14 Public Opinion Survey Taker Date: 08/24/2023 12:26:00 Dictated By: LYDIA GUIDRY MD [facility]
[2023-08-24] MEDS ORDERED: ACET-2650 PO (13:40)
[2023-08-24] MEDS ORDERED: ASPI-1238 PO (13:40)
[2023-08-24] MEDS ORDERED: AMIO200T65 PO (13:40)
[2023-08-24] MEDS ORDERED: DULO20CA19 PO (13:40)
[2023-08-24] MEDS ORDERED: PRD10T PO (13:40)
[2023-08-24] MEDS ORDERED: FLUT1BLS12 INH (13:40)
[2023-08-24] MEDS ORDERED: DIPH-871 PO (13:40)
[2023-08-24] MEDS ORDERED: LIDO1ADH78 TD (13:40)
[2023-08-24] MEDS ORDERED: OMEP20CA18 PO (13:40)
[2023-08-24] MEDS ORDERED: OXYC10TA7 PO (13:40)
[2023-08-24] MEDS ORDERED: [UNRECOGNIZED DRUG - SUPPLY] (13:45)
[2023-08-24] MEDS: HYDROcodone/ACETAMINOPHEN 10/325 TABLET PO PRN ×2 (15:01→18:59)
[2023-08-24] MEDS: PANTOPRAZOLE 40 MG TABLET PO SCH (19:43)
[2023-08-25] VITALS (7 sets, daily range): BP systolic 134–166; BP diastolic 77–86
[2023-08-25] MEDS: predniSONE 20 MG TABLET PO SCH (05:39)
[2023-08-25] MEDS ORDERED: RT-ALBUTEROL SULF 2.5 MG/3 ML PRE-MIX VIAL INH PRN (05:45)
[2023-08-25 05:52] LABS: BASOPHILS % (AUTO) 0 % (0-10); EOSINOPHILS % (AUTO) 0 % (0-10); HEMATOCRIT 30 % (40-54); HEMOGLOBIN 9.5 g/dL (13.3-17.7); LYMPHOCYTES # (AUTO) 0.8 10^3/uL (1.0-4.0); LYMPHOCYTES % (AUTO) 7 % (12-44); MEAN CORPUSCULAR HEMOGLOBIN 28 pg (25-34); MEAN CORPUSCULAR HGB CONC 31 g/dL (32-36); MEAN CORPUSCULAR VOLUME 88 fL (80-99); MEAN PLATELET VOLUME 8.9 fL (9.0-12.2); MONOCYTES # (AUTO) 0.8 10^3/uL (0.0-1.0); MONOCYTES % (AUTO) 7 % (0-12); NEUTROPHILS # (AUTO) 9.5 10^3/uL (1.8-7.8); NEUTROPHILS % (AUTO) 82 % (42-75); PLATELET COUNT 243 10^3/uL (130-400); WHITE BLOOD COUNT 11.6 10^3/uL (4.3-11.0)
[2023-08-25 05:56] LABS: ALBUMIN 2.9 GM/DL (3.2-4.5); POTASSIUM 4.6 MMOL/L (3.6-5.0)
[2023-08-25 05:58] LABS: TOTAL PROTEIN 5.2 GM/DL (6.4-8.2)
[2023-08-25 06:00] LABS: BILIRUBIN,TOTAL 0.4 MG/DL (0.1-1.0)
[2023-08-25 06:02] LABS: CREATININE SERUM 0.66 MG/DL (0.60-1.30)
[2023-08-25] MEDS: NS IV 1000 ML 1,000 ML IV SCH (06:09)
[2023-08-25] MEDS ORDERED: LIDOCAINE 4% PATCH TOP PRN (06:30)
--- NOTE | 2023-08-25 06:47 | Progress Note ---
Subjective Date Seen by a Provider: Aug 25, 2023 Time Seen by a Provider: 11:00 Subjective/Events-last exam Patient feels short of breath Vitals are stable No hypoxia at bedside Will give Lasix Hemoglobin stable at 9.5 Overall seems to be more debilitated Review of Systems General: Fatigue, Malaise Focused Exam Lactate Level 08/23/23 18:49: Lactic Acid Level 1.63 Objective Exam Last Set of Vital Signs Vital Signs Date Time Temp Pulse Resp B/P (MAP) Pulse Ox O2 Delivery O2 Flow Rate FiO2 08/25/23 03:23 36.2 77 16 166/86 (112) 96 Nasal Cannula 2.00 2.00 08/23/23 20:04 21 Capillary Refill : I&O Intake and Output 08/25/23 00:00 Intake Total 2180 ml Output Total 881 ml Balance 1299 ml Intake Oral 1610 ml Other 570 ml Output Urine Total 880 ml Urine/Stool Mix 1 ml # Voids 6 # Bowel Movements 2 General: Alert, Oriented X3, Cooperative, No Acute Distress Lungs: Clear to Auscultation, Normal Air Movement Heart: Regular Rate, Normal S1, Normal S2, No Murmurs Psych/Mental Status: Mental Status NL, Mood NL Results Lab Laboratory Tests 08/25/23 05:20: White Blood Count 11.6H, Red Blood Count 3.44L, Hemoglobin 9.5L, Hematocrit 30L, Mean Corpuscular Volume 88, Mean Corpuscular Hemoglobin 28, Mean Corpuscular Hemoglobin Concent 31L, Red Cell Distribution Width 15.7H, Platelet Count 243, Mean Platelet Volume 8.9L, Immature Granulocyte % (Auto) 4, Neutrophils (%) (Auto) 82H, Lymphocytes (%) (Auto) 7L, Monocytes (%) (Auto) 7, Eosinophils (%) (Auto) 0, Basophils (%) (Auto) 0, Neutrophils # (Auto) 9.5H, Lymphocytes # (Auto) 0.8L, Monocytes # (Auto) 0.8, Eosinophils # (Auto) 0.0, Basophils # (Auto) 0.0, Immature Granulocyte # (Auto) 0.5H, Sodium Level 138, Potassium Level 4.6, Chloride Level 104, Carbon Dioxide Level 28, Anion Gap 6, Blood Urea Nitrogen 19H, Creatinine 0.66, Estimat Glomerular Filtration Rate 93, BUN/Creatinine Ratio 29, Glucose Level 98, Calcium Level 9.0, Corrected Calcium 9.9, Total Bilirubin 0.4, Aspartate Amino Transf (AST/SGOT) 19, Alanine Aminotransferase (ALT/SGPT) 21, Alkaline Phosphatase 50, Total Protein 5.2L, Albumin 2.9L Assessment/Plan Assessment/Plan Assess & Plan/Chief Complaint Assessment: Severe weakness with falls Severe anemia requiring 2 units of blood Hemoglobin 9.5 today History of right Valgus Impacted Femoral Neck Fracture post op surgical fixation with 3 pins 08/2022 Chronic weakness Chronic back pain Chronic pain pump in place Polymyalgia rheumatica Chronic steroid therapy Hypertension Sleep apnea History of A-fib Ulceration of scalp post MOHS surgery and skin grafting Acute nausea indicative of adrenal insufficiency we will increase dose of prednisone Shortness of breath giving Lasix and consulting cardiology Iron deficiency ordering iron infusion Low level B12 ordering B12 supplement Plan: Home meds Maintained on steroids to 60 mg Home pain medication PT and OT Consult Dr. Banuelos for Hemoccult positive stools PPI. Consult Dr.Hammad Velez Clinical Quality Measures DVT/VTE Risk/Contraindication: Contraindications-Pharm: Other *list below* Other: severe anemia BARRON TAO DO Aug 25, 2023 06:47
[2023-08-25] MEDS: AMIODARONE 200 MG TABLET PO SCH (08:20)
[2023-08-25] MEDS: DOCUSATE SODIUM 100 MG CAPSULE PO SCH ×2 (08:20→20:44)
[2023-08-25] MEDS: SENNOSIDES 8.6 MG TABLET PO SCH ×2 (08:21→20:44)
[2023-08-25] MEDS: HYDROcodone/ACETAMINOPHEN 10/325 TABLET PO PRN ×2 (08:21→15:14)
[2023-08-25] MEDS: PANTOPRAZOLE 40 MG TABLET PO SCH ×2 (08:21→20:44)
[2023-08-25] MEDS: DULoxetine 20 MG CAPSULE PO SCH (08:21)
[2023-08-25] MEDS ORDERED: PANTOPRAZOLE 20 MG TABLET PO SCH (09:00)
--- NOTE | 2023-08-25 09:27 | Physical Therapy Daily Note ---
PT Daily Note-Current Subjective Pt agreeable to therapy. Alert and oriented to situation, place, time. Pain Section J - Health Conditions 1. Rarely or not at all 2. Occasionally 3. Frequently 4. Almost constantly 8. Unable to answer Pain Effect on Sleep: 2 Pain Interference with Therapy: 2 Pain Interference w/Day-to-Day: 2 Transfers SCALE: Activities may be completed with or without assistive devices. 6-Fzimrfwawo-[id number] completes the activity by him/herself with no assistance from a helper. 5-Set-up or Clean-up Assistance-helper sets up or cleans up; patient completes activity. [place] assists only prior to or following the activity. 4-Supervision or Touching Assistance-helper provides verbal cues and/or touching/steadying and/or contact guard assistance as patient completes activity. Assistance may be provided throughout the activity or intermittently. 3-Partial/Moderate Assistance-helper does LESS THAN HALF the effort. [place] lifts, holds or supports trunk or limbs, but provides less than half the effort. 2-Substantial/Maximal Assistance-helper does MORE THAN HALF the effort. [place] lifts or holds trunk or limbs and provides more than half the effort. 5-Vzrpfvpvt-xcnpoy does ALL the effort. Patient does none of the effort to complete the activity. Or, the assistance of 2 or more helpers is required for the patient to complete the activity. If activity was not attempted, code reason: 7-Patient Refused. 9-Not Applicable-not attempted and the patient did not perform the activity before the current illness, exacerbation or injury. 10-Not Attempted due to Environmental Limitations-(lack of equipment, weather restraints, etc.). 88-Not Attempted due to Medical Conditions or Safety Concerns. Transfers out of bed with Minimal Assist. Sit to stand SBA. Gait Training Ambulate 300ft with FWW and SBA on room air. Pt SOB post ambulation and placed back on 2L oxygen. Assessment Progressed ambulation distance. Pt was steady with all gait except the last 50ft was slow and slightly labored due to SOB and fatigue. Pt will benefit from conintued therapy. PT Mcc Goals Mcc Goals PT Mcc Goals Time Frame: Sep 08, 2023 Roll Left & Right (QC): 6 Sit to Lying (QC): 6 Lying-Sitting on Side/Bed(QC): 6 Sit to Stand (QC): 6 Chair/Tai-pb-Lmxvs Xfer(QC): 6 Toilet Transfer (QC): 6 Walk 10 feet (QC): 6 Walk 50ft with 2 Turns (QC): 6 Walk 150 ft (QC): 6 1 Step (curb) (QC): 4 4 Steps (QC): 4 PT Plan Treatment/Plan Treatment Plan: Continue Plan of Care Treatment Plan: Bed Mobility, Education, Functional Activity Kim, Functional Strength, Gait, Safety, Therapeutic Exercise, Transfers Treatment Duration: Sep 08, 2023 Frequency: 6 times per week Estimated Hrs Per Day: .25 hour per day Patient and/or Family Agrees t: Yes Time Time In: 0850 Time Out: 0910 DATE: Aug 25, 2023 Total Billed Treatment Time: 20 Total Billed Treatment visit, gait 20 min MIKAL SALAZAR PT Aug 25, 2023 09:27
[2023-08-25] MEDS: HYDROmorphone INJECTION 2 MG/ML VIAL IV PRN ×2 (09:41→17:40)
[2023-08-25] MEDS: FLUTICASONE/VILANTEROL 100/25 MCG (14 DOSES) IH SCH (09:42)
--- NOTE | 2023-08-25 10:17 | Progress Note - Surgery ---
Subjective Date Seen by a Provider: Aug 25, 2023 Time Seen by a Provider: 09:42 Subjective/Events-last exam Jorge, 83M, is sitting in his chair prior to encounter. He notes that he was able to get to the chair. He also notes being able to walk with the walker. Jorge appears to be confused, getting upset when he cannot remember things. Jorge says that he slept fine. His main concern is pain in the back, in the lumbar region. He has a pain pump placed here. Jorge notes that he thinks he came to the hospital due to his scalp, but is unsure. He says the skin graft was 3 weeks ago. Jorge has no other concerns. He notes that he wishes he could tell me more, but is unsure. This appears to be distressing to patient. Further collateral information would assist. Jorge notes his pain as a 6/10, and the nurse came to give him some medication. Review of Systems General: Fatigue (difficultly walking normal distances for him ) HEENT: No Visual Changes, No Sore Throat Pulmonary: No Dyspnea, No Cough Cardiovascular: No: Chest Pain, Palpitations Gastrointestinal: No: Nausea, Vomiting, Abdominal Pain Genitourinary: Other (bingham in place ) Musculoskeletal: back pain (present prior to admission ); No: leg pain Neurological: Confusion; No: Numbness, Change in speech Focused Exam Lactate Level 08/23/23 18:49: Lactic Acid Level 1.63 Objective Exam Vital Signs Date Time Temp Pulse Resp B/P (MAP) Pulse Ox O2 Delivery O2 Flow Rate FiO2 08/25/23 08:12 36.1 90 20 148/85 (106) 92 Room Air 08/25/23 08:00 92 Room Air 08/25/23 07:00 74 08/25/23 03:23 36.2 77 16 166/86 (112) 96 Nasal Cannula 2.00 2.00 08/25/23 00:15 66 08/24/23 23:17 36.5 78 16 162/76 (104) 96 Nasal Cannula 2.00 08/24/23 19:52 Room Air 08/24/23 19:42 36.8 76 18 144/68 (93) 92 Room Air 08/24/23 19:37 73 08/24/23 16:15 36.7 75 24 158/82 (107) 93 Room Air 08/24/23 12:31 76 08/24/23 12:28 36.5 77 20 147/70 (95) 94 Room Air I & O 08/25/23 06:59 Intake Total 1310 ml Output Total 806 ml Balance 504 ml Capillary Refill : General Appearance: WD/WN, Chronically ill HEENT: PERRL/EOMI, Pharynx Normal; No Scleral Icterus (L), No Scleral Icterus (R) Neck: Non Tender Respiratory: Chest Non Tender, Lungs Clear, Normal Breath Sounds, No Accessory Muscle Use, No Respiratory Distress Cardiovascular: Regular Rate, Rhythm; No No Murmur, No Tachycardia Gastrointestinal: normal bowel sounds, non tender, other (L sided fullness, Right sided bruising that patient was unaware of ) Extremity: Normal Capillary Refill, Normal Inspection, Normal Range of Motion, Non Tender, No Calf Tenderness, No Pedal Edema Neurologic/Psychiatric: Alert, Oriented x3, Normal Mood/Affect, Other (pt gets upset that he cannot remember some information, ) Skin: Ecchymosis (R- flank ), Other ( healing scalp skin graft) Results Lab Laboratory Tests 08/25/23 05:20: White Blood Count 11.6H, Red Blood Count 3.44L, Hemoglobin 9.5L, Hematocrit 30L, Mean Corpuscular Volume 88, Mean Corpuscular Hemoglobin 28, Mean Corpuscular Hemoglobin Concent 31L, Red Cell Distribution Width 15.7H, Platelet Count 243, Mean Platelet Volume 8.9L, Immature Granulocyte % (Auto) 4, Neutrophils (%) (Auto) 82H, Lymphocytes (%) (Auto) 7L, Monocytes (%) (Auto) 7, Eosinophils (%) (Auto) 0, Basophils (%) (Auto) 0, Neutrophils # (Auto) 9.5H, Lymphocytes # (Auto) 0.8L, Monocytes # (Auto) 0.8, Eosinophils # (Auto) 0.0, Basophils # (Auto) 0.0, Immature Granulocyte # (Auto) 0.5H, Sodium Level 138, Potassium Level 4.6, Chloride Level 104, Carbon Dioxide Level 28, Anion Gap 6, Blood Urea Nitrogen 19H, Creatinine 0.66, Estimat Glomerular Filtration Rate 93, BUN/Creatinine Ratio 29, Glucose Level 98, Calcium Level 9.0, Corrected Calcium 9.9, Total Bilirubin 0.4, Aspartate Amino Transf (AST/SGOT) 19, Alanine Aminotransferase (ALT/SGPT) 21, Alkaline Phosphatase 50, Total Protein 5.2L, Albumin 2.9L Assessment/Plan Assessment/Plan Assessment/Plan Anemia * 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
[2023-08-25] MEDS: ONDANSETRON INJECTION 4 MG/2 ML (SDV) IV PRN (10:19)
[2023-08-25] MEDS ORDERED: FUROSEMIDE INJECTION 40 MG/4 ML VIAL IVP NR (11:30)
--- NOTE | 2023-08-25 12:36 | Diagnostic Imaging Report ---
HISTORY: Dyspnea. COMPARISON: 08/23/2023. TECHNIQUE: Frontal view of the chest. FINDINGS: There is a stable moderate right pleural effusion with atelectasis. There may be a small left pleural effusion. There is no pneumothorax. The cardiac silhouette is partially obscured but appears stable in size. Left-sided pacemaker leads appear stable. IMPRESSION: Stable bilateral pleural effusions, right greater than left. Dictated by: Dictated on workstation # [id number]
--- NOTE | 2023-08-25 14:40 | Consultation-Cardiology ---
HPI-Cardiology Cardiology Consultation: Date of Consultation 08/25/23 Time Seen by a Provider: 13:30 Date of Admission Attending Physician Beverly Hussein MD Admitting Physician Admitting Physician: Marina Cotter DO Attending Physician: Marina Cotter DO Consulting Physician CHAD ADAMS MD, MA, FACP, FACC, [facility] [place] CCDS Physician requesting consult: Dr Cotter HPI: Chief Complaint: Reason for Card consult: H/o pacemaker-defibrillator 83 yo man admitted with gen weakness and malaise by Dr Cotter. Found to have anemia that has been treated with 2U PRBC. Currently feeling less weak. No cp or palp or syncope or shortness of breath at rest. 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 Then was in a rehab facility where he developed a ventricular a rrhythmia with rate around 260. Taken back to [facility]. Cath performed by Dr Balbuena and stated to have shown only mild coronary plaques and normal cardiac function, per patient and family report. Then seen by Dr Martinez in EP consult who then placed a dual chamber pacemaker defibrillator in early Jul 2023, per patient and family report. Apparently, was also stared on amiodarone at that time. No shocks from the device and no palpitations. Continues to f/u with Dr Martinez Review of Systems-Cardiology Review of Systems Constitutional: malaise, tiredness; No weight loss, No weight gain Eyes: No vision change Ears/Nose/Throat: No ear discharge, No nasal drainage, No recent hearing loss Respiratory: As described under HPI Cardiovascular: As described under HPI Gastrointestinal: No diarrhea, No nausea, No vomiting Genitourinary: No dysuria, No hematuria, No urine frequency changes Musculoskeletal: back pain (chronic), joint pain (chronic) Skin: No rash, No ulcerations Psychiatric/Neurological: No seizure, No focal weakness, No syncope Hematologic: No bleeding abnormalities All Other Systems Reviewed Negative Unless Noted: Yes BZC-Htnezd-Ivkfzk Hx Patient Social History Marrital Status: Employed/Student: retired Smoking Status: Never a Smoker 2nd Hand Smoke Exposure: No Alcohol Use?: No Pt feels they are or have been: No Immunizations Up To Date Tetanus Booster (TDap): Unknown Date of Pneumonia Vaccine: Jul 15, 2016 Date of Influenza Vaccine: Jul 29, 2018 Past Medical History PMH As described under Assessment. Family Medical History Family Medical History: Does not report fam h/o early CAD or SCD Family History: Dementia 19 MOTHER FH: lung cancer 19 FATHER Allergies and Home Medications Allergies Coded Allergies: No Known Drug Allergies (Verified , 08/14/18) Patient Home Medication List Home Medication List Reviewed: Yes Acetaminophen (Tylenol Arthritis) 650 Mg Tablet.er, 650-1,300 MG PO Q8H PRN for PAIN-MILD (1-4), (Reported) Entered as Reported by: RISSA BARROW on 08/24/231339 Last Action: Held Albuterol Sulfate (Ventolin Hfa) 1 Puff Puff, 2 PUFF INH Q4H PRN for SHORTNESS O F BREATH, (Reported) Entered as Reported by: SHERRY JONES on 12/12/16927 Last Action: Continued Amiodarone HCl (Amiodarone HCl) 200 Mg Tablet, 200 MG PO DAILY, (Reported) Entered as Reported by: RISSA BARROW on 08/24/231339 Last Action: Continued Aspirin (Aspirin EC) 81 Mg Tablet.dr, 81 MG PO DAILY, (Reported) Entered as Reported by: RISSA BARROW on 08/24/231339 Last Action: Held Diphenhydramine HCl (Sleep Aid) 50 Mg Capsule, 100 MG PO HS, (Reported) Entered as Reported by: RISSA BARROW on 08/24/231339 Last Action: Converted Duloxetine HCl (Duloxetine HCl) 20 Mg Capsule.dr, 20 MG PO DAILY, (Reported) Entered as Reported by: RISSA BARROW on 08/24/231339 Last Action: Continued Fluticasone Propion/Salmeterol (Fluticasone-Salmeterol 250-50) 250 Mcg-50 Mcg/Dose Blst.w.dev, 1 PUFF INH DAILY, (Reported) Entered as Reported by: RISSA BARROW on 08/24/231339 Last Action: Converted Lidocaine (Lidocaine) 4 % Adh..patch, 1-2 EACH TD DAILY PRN for PAIN-BREAKTHROU GH, (Reported) Entered as Reported by: RISSA BARROW on 08/24/231339 Last Action: Converted Omeprazole (Omeprazole) 20 Mg Capsule.dr, 20 MG PO DAILY, (Reported) Entered as Reported by: RISSA BARROW on 08/24/231339 Last Action: Continued Oxycodone HCl (Oxycodone HCl) 10 Mg Tablet, 10 MG PO Q6H PRN for PAIN-SEVERE (8- 10), (Reported) Entered as Reported by: RISSA BARROW on 08/24/231339 Last Action: Converted Prednisone (Prednisone) 10 Mg Tab, 30 MG PO DAILY, (Reported) Entered as Reported by: RISSA BARROW on 08/24/231339 Last Action: Held [Pain Management Pump] , UD, (Reported) Entered as Reported by: RISSA BARROW on 08/24/231344 Last Action: Held Discontinued Medications Acetaminophen (Tylenol Extra Strength) 500 Mg Tablet, 1,000 MG PO Q8H PRN for PAIN-MILD (1-4), (Reported) Discontinued Reason: No Longer Taking Entered as Reported by: RISSA BARROW on 09/14/221504 Last Action: Discontinued Aspirin (Aspirin EC) 81 Mg Tablet.dr, 81 MG PO BID WITH MEALS Discontinued Reason: No Longer Taking Prescribed by: MARINA COTTER on 09/21/22627 Last Action: Discontinued Diphenhydramine HCl (Benadryl) 25 Mg Capsule, 50 MG PO HS, (Reported) Discontinued Reason: No Longer Taking Entered as Reported by: RISSA BARROW on 09/14/221504 Last Action: Discontinued Fluticasone Propion/Salmeterol (Wixela 250-50 Inhub) 250 Mcg-50 Mcg/Dose Blst.w.dev, 1 PUFF INH DAILY, (Reported) Discontinued Reason: No Longer Taking Entered as Reported by: RISSA BARROW on 09/14/221504 Last Action: Discontinued Losartan Potassium (Cozaar) 100 Mg Tablet, 100 MG PO DAILY, (Reported) Discontinued Reason: No Longer Taking Entered as Reported by: RISSA BARROW on 09/14/221504 Last Action: Discontinued Ondansetron (Ondansetron Odt) 4 Mg Tab.rapdis, 4 MG PO Q6H PRN for NAUSEA/VOMITING-1ST LINE Discontinued Reason: No Longer Taking Prescribed by: MARINA COTTER on 09/21/22627 Last Action: Discontinued Oxycodone Hcl (Oxyir Tablet) 5 Mg Tab, 5 MG PO Q8H PRN for PAIN-SEVERE (8-10) Discontinued Reason: No Longer Taking Prescribed by: MARINA COTTER on 09/21/22627 Last Action: Discontinued Polyethylene Glycol 3350 (Miralax) 17 Gram Powd.pack, 17 GM PO DAILY, (Reported) Discontinued Reason: No Longer Taking Entered as Reported by: RISSA BARROW on 09/14/22 1505 Last Action: Discontinued Prednisone (Prednisone) 10 Mg Tab, 40 MG PO DAILY@0700 Discontinued Reason: No Longer Taking Prescribed by: MARINA COTTER on 09/21/22627 Last Action: Discontinued Physical Exam-Cardiology Physical Exam Vital Signs/I&O 08/25/23 08/25/23 08/25/23 08/25/23 03:23 07:00 08:00 08:12 Temp 36.2 36.1 Pulse 77 74 90 Resp 16 20 B/P (MAP) 166/86 (112) 148/85 (106) Pulse Ox 96 92 92 O2 Delivery Nasal Cannula Room Air Room Air O2 Flow Rate 2.00 2.00 08/25/23 08/25/23 08/25/23 11:36 12:11 12:29 Temp 36.6 Pulse 75 69 Resp 20 B/P (MAP) 134/78 (96) Pulse Ox 97 96 O2 Delivery Nasal Cannula Nasal Cannula O2 Flow Rate 2.00 2.00 08/24/23 23:59 Intake Total 1210 ml Output Total 181 ml Balance 1029 ml Capillary Refill : Constitutional: AAO x 3, well-developed, well-nourished HEENT: EOMI, hearing is well preserved; No xanthelasmas are seen Neck: carotid pulses are 2 + bilaterally, with good upstrokes Respiratory: No accessory muscle use; chest expansion is symmetric, chest is bilaterally symmetric, other (good bilat air entry) Gastrointestinal: No tender; soft; No guarding, No rebound; audible bowel sounds Extremities: other (Heberden's nodes and 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); No clubbing, No cyanosis, No significant edema Neurologic/Psychiatric: oriented x 3, other (mvoes all limbs equally) Skin: warm/dry; No cyanosis, No cool; other (scalp under dressing) Data Review Labs Laboratory Tests 08/25/23 05:20: White Blood Count 11.6H, Red Blood Count 3.44L, Hemoglobin 9.5L, Hematocrit 30L, Mean Corpuscular Volume 88, Mean Corpuscular Hemoglobin 28, Mean Corpuscular Hemoglobin Concent 31L, Red Cell Distribution Width 15.7H, Platelet Count 243, Mean Platelet Volume 8.9L, Immature Granulocyte % (Auto) 4, Neutrophils (%) (Auto) 82H, Lymphocytes (%) (Auto) 7L, Monocytes (%) (Auto) 7, Eosinophils (%) (Auto) 0, Basophils (%) (Auto) 0, Neutrophils # (Auto) 9.5H, Lymphocytes # (Auto) 0.8L, Monocytes # (Auto) 0.8, Eosinophils # (Auto) 0.0, Basophils # (Auto) 0.0, Immature Granulocyte # (Auto) 0.5H, Sodium Level 138, Potassium Level 4.6, Chloride Level 104, Carbon Dioxide Level 28, Anion Gap 6, Blood Urea Nitrogen 19H, Creatinine 0.66, Estimat Glomerular Filtration Rate 93, BUN/Creatinine Ratio 29, Glucose Level 98, Calcium Level 9.0, Corrected Calcium 9.9, Total Bilirubin 0.4, Aspartate Amino Transf (AST/SGOT) 19, Alanine Aminotransferase (ALT/SGPT) 21, Alkaline Phosphatase 50, B-Type Natriuretic Peptide 90.0, Total Protein 5.2L, Albumin 2.9L Laboratory Tests 08/23/23 18:49 08/23/23 18:59 08/24/23 05:11 08/25/23 05:20 A/P-Cardiology Assessment/Admission Diagnosis H/o vent arrhythmia in early Jul 2023 - card cath at [facility]: pt and family reports only mild CAD and normal heart function - dual chamber ICD placement by Dr Martinez at [facility] on or around 08-02-23 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
[2023-08-25] MEDS ORDERED: CYANOCOBALAMIN 1000 MCG/ML 1 ML VIAL IM NR (16:30)
[2023-08-25] MEDS: IRON SUCROSE 200 MG/10 ML VIAL IV SCH (17:42)
[2023-08-25] MEDS: RT-ALBUTEROL SULF 2.5 MG/3 ML PRE-MIX VIAL INH SCH (19:37)
[2023-08-25] MEDS: diphenhydrAMINE 25 MG TABLET PO SCH (20:44)
[2023-08-26 04:02] VITALS: BP 163/90
[2023-08-26] MEDS: HYDROmorphone INJECTION 2 MG/ML VIAL IV PRN (04:41)
[2023-08-26] MEDS: RT-ALBUTEROL SULF 2.5 MG/3 ML PRE-MIX VIAL INH SCH ×3 (04:44→21:47)
[2023-08-26 05:44] LABS: BASOPHILS % (AUTO) 0 % (0-10); EOSINOPHILS # (AUTO) 0.1 10^3/uL (0.0-0.3); EOSINOPHILS % (AUTO) 1 % (0-10); HEMATOCRIT 32 % (40-54); HEMOGLOBIN 9.9 g/dL (13.3-17.7); LYMPHOCYTES # (AUTO) 1.1 10^3/uL (1.0-4.0); LYMPHOCYTES % (AUTO) 10 % (12-44); MEAN CORPUSCULAR HEMOGLOBIN 27 pg (25-34); MEAN CORPUSCULAR HGB CONC 31 g/dL (32-36); MEAN CORPUSCULAR VOLUME 89 fL (80-99); MEAN PLATELET VOLUME 8.4 fL (9.0-12.2); MONOCYTES # (AUTO) 0.7 10^3/uL (0.0-1.0); MONOCYTES % (AUTO) 7 % (0-12); NEUTROPHILS # (AUTO) 7.9 10^3/uL (1.8-7.8); NEUTROPHILS % (AUTO) 78 % (42-75); PLATELET COUNT 248 10^3/uL (130-400); WHITE BLOOD COUNT 10.3 10^3/uL (4.3-11.0)
[2023-08-26 05:58] LABS: CALCIUM 9.1 MG/DL (8.5-10.1)
[2023-08-26 05:59] LABS: TOTAL PROTEIN 5.4 GM/DL (6.4-8.2)
[2023-08-26 06:01] LABS: BILIRUBIN,TOTAL 0.4 MG/DL (0.1-1.0)
[2023-08-26 06:03] LABS: CREATININE SERUM 0.72 MG/DL (0.60-1.30)
--- NOTE | 2023-08-26 06:28 | Progress Note ---
Subjective Date Seen by a Provider: Aug 26, 2023 Time Seen by a Provider: 12:30 Subjective/Events-last exam Patient much improved Family at bedside No pain Improved ALVARADO BM+ Lasix improved status Hgb 9.9 Iron infusions given and B12 Review of Systems General: Fatigue, Malaise Pulmonary: Dyspnea Focused Exam Lactate Level 08/23/23 18:49: Lactic Acid Level 1.63 Objective Exam Last Set of Vital Signs Vital Signs Date Time Temp Pulse Resp B/P (MAP) Pulse Ox O2 Delivery O2 Flow Rate FiO2 08/26/23 04:35 95 Nasal Cannula 2.00 08/26/23 04:02 36.5 77 20 163/90 (114) 08/23/23 20:04 21 Capillary Refill : I&O Intake and Output 08/26/23 00:00 Intake Total 2060 ml Output Total 5 ml Balance 35 ml Intake Oral 2060 ml Output Urine Total 5 ml # Voids 3 # Bowel Movements 2 General: Alert, Oriented X3, Cooperative, No Acute Distress Lungs: Clear to Auscultation, Normal Air Movement Heart: Regular Rate, Normal S1, Normal S2, No Murmurs Psych/Mental Status: Mental Status NL, Mood NL Results Lab Laboratory Tests 08/26/23 05:19: White Blood Count 10.3, Red Blood Count 3.61L, Hemoglobin 9.9L, Hematocrit 32L, Mean Corpuscular Volume 89, Mean Corpuscular Hemoglobin 27, Mean Corpuscular Hemoglobin Concent 31L, Red Cell Distribution Width 15.6H, Platelet Count 248, Mean Platelet Volume 8.4L, Immature Granulocyte % (Auto) 4, Neutrophils (%) ( Auto) 78H, Lymphocytes (%) (Auto) 10L, Monocytes (%) (Auto) 7, Eosinophils (%) (Auto) 1, Basophils (%) (Auto) 0, Neutrophils # (Auto) 7.9H, Lymphocytes # (Auto) 1.1, Monocytes # (Auto) 0.7, Eosinophils # (Auto) 0.1, Basophils # (Auto) 0.0, Immature Granulocyte # (Auto) 0.4H, Sodium Level 138, Potassium Level 4.0, Chloride Level 100, Carbon Dioxide Level 31, Anion Gap 7, Blood Urea Nitrogen 24H, Creatinine 0.72, Estimat Glomerular Filtration Rate 91, BUN/Creatinine Ratio 33, Glucose Level 88, Calcium Level 9.1, Corrected Calcium 9.9, Total B ilirubin 0.4, Aspartate Amino Transf (AST/SGOT) 21, Alanine Aminotransferase (ALT/SGPT) 23, Alkaline Phosphatase 64, Total Protein 5.4L, Albumin 3.0L Assessment/Plan Assessment/Plan Assess & Plan/Chief Complaint Assessment: Severe weakness with falls Severe anemia requiring 2 units of blood Hemoglobin 9.5 today History of right Valgus Impacted Femoral Neck Fracture post op surgical fixation with 3 pins 08/2022 Chronic weakness Chronic back pain Chronic pain pump in place Polymyalgia rheumatica Chronic steroid therapy Hypertension Sleep apnea History of A-fib Ulceration of scalp post MOHS surgery and skin grafting Acute nausea indicative of adrenal insufficiency we will increase dose of prednisone Shortness of breath giving Lasix and consulting cardiology Iron deficiency ordering iron infusion Low level B12 ordering B12 supplement Plan: Home meds Maintained on steroids to 60 mg Home pain medication PT and OT Consult Dr. Banuelos for Hemoccult positive stools PPI. Consult Dr.Hammad Velez Clinical Quality Measures DVT/VTE Risk/Contraindication: Contraindications-Pharm: Other *list below* Other: severe anemia BARRON TAO DO Aug 26, 2023 06:28
[2023-08-26] MEDS: CYANOCOBALAMIN 1,000 MCG TABLET PO SCH (06:40)
[2023-08-26] MEDS: predniSONE 20 MG TABLET PO SCH (06:40)
[2023-08-26 08:06] VITALS: BP 151/80
[2023-08-26] MEDS: DOCUSATE SODIUM 100 MG CAPSULE PO SCH ×2 (08:27→20:00)
[2023-08-26] MEDS: DULoxetine 20 MG CAPSULE PO SCH (08:27)
[2023-08-26] MEDS: PANTOPRAZOLE 40 MG TABLET PO SCH ×2 (08:27→20:00)
[2023-08-26] MEDS: AMIODARONE 200 MG TABLET PO SCH (08:27)
[2023-08-26] MEDS: SENNOSIDES 8.6 MG TABLET PO SCH ×2 (08:27→20:00)
[2023-08-26] MEDS: HYDROcodone/ACETAMINOPHEN 10/325 TABLET PO PRN ×2 (08:37→18:56)
[2023-08-26] MEDS: FLUTICASONE/VILANTEROL 100/25 MCG (14 DOSES) IH SCH (08:59)
[2023-08-26 11:49] VITALS: BP 149/81
[2023-08-26] MEDS: oxyCODONE IMMEDIATE RELEASE 5 MG TABLET PO PRN (12:00)
--- NOTE | 2023-08-26 12:16 | Progress Note - Cardiology ---
Cardiology SOAP Progress Note Subjective: No cp or palp or syncope or shortness of breath at rest No n/v/d No focal weakness Gen weakness and malaise present Objective: I&O/Vital Signs 08/26/23 08/26/23 08/26/23 08/26/23 01:24 04:02 04:35 07:00 Temp 36.5 Pulse 68 77 60 Resp 20 B/P (MAP) 163/90 (114) Pulse Ox 97 95 O2 Delivery Nasal Cannula Nasal Cannula O2 Flow Rate 2.00 2.00 2.00 08/26/23 08/26/23 08/26/23 08:06 08:31 08:59 Temp 36.5 Pulse 79 Resp 20 B/P (MAP) 151/80 (103) Pulse Ox 95 95 O2 Delivery Nasal Cannula Nasal Cannula Nasal Cannula O2 Flow Rate 2.00 2.00 2.00 08/25/23 23:59 Intake Total 1960 ml Output Total 1400 ml Balance 560 ml Weight (Pounds): 210 Weight (Ounces): 0.0 Weight (Calculated Kilograms): 95.237592 Constitutional: AAO x 3, well-developed, well-nourished Respiratory: No accessory muscle use; chest expansion is symmetric, chest is bilaterally symmetric, other (good bilat air entry) Gastrointestional: No tender; soft; No guarding, No rebound; audible bowel sounds Extremities: other (Heberden's nodes and 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); No clubbing, No cyanosis, No significant edema Neurologic/Psychiatric: oriented x 3, other (mvoes all limbs equally) Skin: warm/dry; No cyanosis, No cool; other (scalp under dressing) Results/Procedures: Labs Laboratory Tests 08/26/23 05:19: White Blood Count 10.3, Red Blood Count 3.61L, Hemoglobin 9.9L, Hematocrit 32L, Mean Corpuscular Volume 89, Mean Corpuscular Hemoglobin 27, Mean Corpuscular Hemoglobin Concent 31L, Red Cell Distribution Width 15.6H, Platelet Count 248, Mean Platelet Volume 8.4L, Immature Granulocyte % (Auto) 4, Neutrophils (%) (Auto) 78H, Lymphocytes (%) (Auto) 10L, Monocytes (%) (Auto) 7, Eosinophils (%) (Auto) 1, Basophils (%) (Auto) 0, Neutrophils # (Auto) 7.9H, Lymphocytes # (Auto) 1.1, Monocytes # (Auto) 0.7, Eosinophils # (Auto) 0.1, Basophils # (Auto) 0.0, Immature Granulocyte # (Auto) 0.4H, Sodium Level 138, Potassium Level 4.0, Chloride Level 100, Carbon Dioxide Level 31, Anion Gap 7, Blood Urea Nitrogen 24H, Creatinine 0.72, Estimat Glomerular Filtration Rate 91, BUN/Creatinine Ratio 33, Glucose Level 88, Calcium Level 9.1, Corrected Calcium 9.9, Total Bilirubin 0.4, Aspartate Amino Transf (AST/SGOT) 21, Alanine Aminotransferase (ALT/SGPT) 23, Alkaline Phosphatase 64, Total Protein 5.4L, Albumin 3.0L Laboratory Tests 08/25/23 05:20 08/26/23 05:19 A/P: Assessment: H/o vent arrhythmia in early Jul 2023 - card cath at [facility]: pt and family reports only mild CAD and normal heart function - dual chamber ICD placement by Dr Martinez at [facility] on or around 08-02-23 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
[2023-08-26 15:56] VITALS: BP 150/84
[2023-08-26] MEDS: diphenhydrAMINE 25 MG TABLET PO SCH (20:00)
[2023-08-26 20:07] VITALS: BP 113/76
[2023-08-27] VITALS (7 sets, daily range): BP systolic 123–162; BP diastolic 66–90
[2023-08-27 05:39] LABS: BASOPHILS % (AUTO) 0 % (0-10); EOSINOPHILS # (AUTO) 0.1 10^3/uL (0.0-0.3); EOSINOPHILS % (AUTO) 1 % (0-10); HEMATOCRIT 34 % (40-54); HEMOGLOBIN 10.7 g/dL (13.3-17.7); LYMPHOCYTES # (AUTO) 1.3 10^3/uL (1.0-4.0); LYMPHOCYTES % (AUTO) 10 % (12-44); MEAN CORPUSCULAR HEMOGLOBIN 28 pg (25-34); MEAN CORPUSCULAR HGB CONC 31 g/dL (32-36); MEAN CORPUSCULAR VOLUME 89 fL (80-99); MEAN PLATELET VOLUME 8.6 fL (9.0-12.2); MONOCYTES # (AUTO) 0.8 10^3/uL (0.0-1.0); MONOCYTES % (AUTO) 7 % (0-12); NEUTROPHILS # (AUTO) 9.8 10^3/uL (1.8-7.8); NEUTROPHILS % (AUTO) 78 % (42-75); PLATELET COUNT 277 10^3/uL (130-400); WHITE BLOOD COUNT 12.6 10^3/uL (4.3-11.0)
[2023-08-27] MEDS: CYANOCOBALAMIN 1,000 MCG TABLET PO SCH (05:39)
[2023-08-27] MEDS: oxyCODONE IMMEDIATE RELEASE 5 MG TABLET PO PRN (05:40)
[2023-08-27 05:51] LABS: ALBUMIN 3.2 GM/DL (3.2-4.5)
[2023-08-27 05:52] LABS: POTASSIUM 4.1 MMOL/L (3.6-5.0)
[2023-08-27 05:53] LABS: CALCIUM 9.5 MG/DL (8.5-10.1)
[2023-08-27 05:54] LABS: TOTAL PROTEIN 5.6 GM/DL (6.4-8.2)
[2023-08-27 05:56] LABS: BILIRUBIN,TOTAL 0.4 MG/DL (0.1-1.0)
[2023-08-27 05:58] LABS: CREATININE SERUM 0.78 MG/DL (0.60-1.30)
[2023-08-27] MEDS: FLUTICASONE/VILANTEROL 100/25 MCG (14 DOSES) IH SCH (07:43)
[2023-08-27] MEDS: RT-ALBUTEROL SULF 2.5 MG/3 ML PRE-MIX VIAL INH SCH ×3 (07:43→21:02)
[2023-08-27] MEDS: IRON SUCROSE 200 MG/10 ML VIAL IV SCH (09:10)
[2023-08-27] MEDS: SENNOSIDES 8.6 MG TABLET PO SCH ×2 (09:12→20:59)
[2023-08-27] MEDS: AMIODARONE 200 MG TABLET PO SCH (09:14)
[2023-08-27] MEDS: predniSONE 20 MG TABLET PO SCH (09:14)
[2023-08-27] MEDS: DULoxetine 20 MG CAPSULE PO SCH (09:14)
[2023-08-27] MEDS: PANTOPRAZOLE 40 MG TABLET PO SCH ×2 (09:14→20:59)
[2023-08-27] MEDS: DOCUSATE SODIUM 100 MG CAPSULE PO SCH ×2 (09:15→20:59)
[2023-08-27] MEDS: HYDROcodone/ACETAMINOPHEN 10/325 TABLET PO PRN ×2 (09:18→16:54)
--- NOTE | 2023-08-27 09:21 | Progress Note - Cardiology ---
Cardiology SOAP Progress Note Subjective: Sitting up in recliner States he may go home today No c/o CP, SOB or palpitations Objective: I&O/Vital Signs 08/27/23 08/28/23 08/28/23 08/28/23 23:22 01:02 03:36 07:00 Temp 36.5 36.8 Pulse 82 60 62 Resp 18 18 B/P (MAP) 153/72 (99) 167/74 (105) Pulse Ox 97 97 O2 Delivery Nasal Cannula Nasal Cannula Nasal Cannula O2 Flow Rate 3.00 3.00 2.00 3.00 08/28/23 08/28/23 08/28/23 08/28/23 07:00 07:19 08:07 08:31 Temp 36.1 Pulse 69 82 Resp 17 B/P (MAP) 121/77 (92) Pulse Ox 90 95 O2 Delivery Room Air Room Air Room Air O2 Flow Rate 0.00 0.00 08/28/23 08:36 Temp 36.1 Pulse 82 Pulse Ox 95 FiO2 21 08/27/23 23:59 Intake Total 1600 ml Balance 1600 ml Weight (Pounds): 210 Weight (Ounces): 0.0 Weight (Calculated Kilograms): 95.600803 Constitutional: AAO x 3, well-developed, well-nourished Respiratory: No accessory muscle use; chest expansion is symmetric, chest is bilaterally symmetric, other (good bilat air entry) Gastrointestional: No tender; soft; No guarding, No rebound; audible bowel sounds Extremities: other (Heberden's nodes and 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); No clubbing, No cyanosis, No significant edema Neurologic/Psychiatric: oriented x 3, other (mvoes all limbs equally) Skin: warm/dry; No cyanosis, No cool; other (scalp under dressing) Results/Procedures: Labs Laboratory Tests 08/28/23 05:20: White Blood Count 12.3H, Red Blood Count 3.61L, Hemoglobin 10.1L, Hematocrit 32L , Mean Corpuscular Volume 89, Mean Corpuscular Hemoglobin 28, Mean Corpuscular Hemoglobin Concent 31L, Red Cell Distribution Width 15.9H, Platelet Count 229, Mean Platelet Volume 8.7L, Immature Granulocyte % (Auto) 5, Neutrophils (%) (Auto) 82H, Lymphocytes (%) (Auto) 7L, Monocytes (%) (Auto) 6, Eosinophils (%) (Auto) 0, Basophils (%) (Auto) 0, Neutrophils # (Auto) 10.0H, Lymphocytes # (Auto) 0.9L, Monocytes # (Auto) 0.8, Eosinophils # (Auto) 0.1, Basophils # (Auto) 0.0, Immature Granulocyte # (Auto) 0.6H, Sodium Level 137, Potassium Level 4.3, Chloride Level 99, Carbon Dioxide Level 32, Anion Gap 6, Blood Urea Nitrogen 19H, Creatinine 0.68, Estimat Glomerular Filtration Rate 92, BUN/Creatinine Ratio 28, Glucose Level 90, Calcium Level 9.0, Corrected Calcium 10.0, Total Bilirubin 0.4, Aspartate Amino Transf (AST/SGOT) 18, Alanine Aminotransferase (ALT/SGPT) 20, Alkaline Phosphatase 71, Total Protein 5.1L, Albumin 2.8L Laboratory Tests 08/27/23 05:22 08/28/23 05:20 A/P: Assessment: H/o vent arrhythmia in early Jul 2023 - card cath at [facility]: pt and family reports only mild CAD and normal heart function - dual chamber ICD placement by Dr Martinez at [facility] on or around 08-02-23 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
--- NOTE | 2023-08-27 09:37 | Physical Therapy Daily Note ---
PT Daily Note-Current Subjective Patient agrees to PT. Pain Section J - Health Conditions 1. Rarely or not at all 2. Occasionally 3. Frequently 4. Almost constantly 8. Unable to answer Pain Effect on Sleep: 1 Pain Interference with Therapy: 1 Pain Interference w/Day-to-Day: 2 Transfers SCALE: Activities may be completed with or without assistive devices. 4-Skcpalsqxo-baynuly completes the activity by him/herself with no assistance from a helper. 5-Set-up or Clean-up Assistance-helper sets up or cleans up; patient completes activity. [place] assists only prior to or following the activity. 4-Supervision or Touching Assistance-helper provides verbal cues and/or touching/steadying and/or contact guard assistance as patient completes activity. Assistance may be provided throughout the activity or intermittently. 3-Partial/Moderate Assistance-helper does LESS THAN HALF the effort. [place] lifts, holds or supports trunk or limbs, but provides less than half the effort. 2-Substantial/Maximal Assistance-helper does MORE THAN HALF the effort. [place] lifts or holds trunk or limbs and provides more than half the effort. 7-Durmcgnbc-ecmabb does ALL the effort. Patient does none of the effort to complete the activity. Or, the assistance of 2 or more helpers is required for the patient to complete the activity. If activity was not attempted, code reason: 7-Patient Refused. 9-Not Applicable-not attempted and the patient did not perform the activity before the current illness, exacerbation or injury. 10-Not Attempted due to Environmental Limitations-(lack of equipment, weather restraints, etc.). 88-Not Attempted due to Medical Conditions or Safety Concerns. Lying to Sitting/Side of Bed(Q: 4 Sit to Stand (QC): 4 Chair/Gtu-tg-Fjzvb Xfer(QC): 4 Gait Training Distance: 350' Walk 10 feet (QC): 4 Walk 50 ft with 2 Turns(QC): 4 Walk 150 ft (QC): 4 Gait Assistive Device: FWW slow, flexed bilateral knee posture Assessment Patient tolerated treatment well and is up in recliner with needs met. Physician notified of patient's progress and current LOF. PT Fdc Goals Beer Cooler Goals PT Beer Cooler Goals Time Frame: Sep 08, 2023 Roll Left & Right (QC): 6 Sit to Lying (QC): 6 Lying-Sitting on Side/Bed(QC): 6 Sit to Stand (QC): 6 Chair/Roa-qt-Zmfri Xfer(QC): 6 Toilet Transfer (QC): 6 Walk 10 feet (QC): 6 Walk 50ft with 2 Turns (QC): 6 Walk 150 ft (QC): 6 1 Step (curb) (QC): 4 4 Steps (QC): 4 PT Plan Treatment/Plan Treatment Plan: Continue Plan of Care Treatment Plan: Bed Mobility, Education, Functional Activity Kim, Functional Strength, Gait, Safety, Therapeutic Exercise, Transfers Treatment Duration: Sep 08, 2023 Frequency: 6 times per week Estimated Hrs Per Day: .25 hour per day Patient and/or Family Agrees t: Yes Time Time In: 900 Time Out: 911 DATE: Aug 27, 2023 Total Billed Treatment Time: 11 Total Billed Treatment 1 visit FA 11 min HAKAN BARRY PT Aug 27, 2023 09:37
--- NOTE | 2023-08-27 10:45 | Progress Note ---
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 At the time, his Hgb was 7.6 and he received 2 units of blood which bumped up his Hgb to 9.0 which caused him to feel much better. Of note, he has been prednisone dependent for 30 years. He reports that he needs a higher dose of steroids in order to help him with his severe muscle pain. Today, pt states that he is doing well other than his back pain. He has str uggled with chronic back pain in the past and today it is bothering him a lot, rating it a 7/10 for pain. He reports some SOB that he associates with the pain. He denies any recent pain meds and would like some. He states that he has been getting up and around using his walker without any falls. He reports that he would be more active if his back was not troubling him so much. Reports decreased appetite. He resides at home with his Objective Exam Last Set of Vital Signs Vital Signs Date Time Temp Pulse Resp B/P (MAP) Pulse Ox O2 Delivery O2 Flow Rate FiO2 08/27/23 08:04 36.0 101 16 127/74 (91) 94 Nasal Cannula 2.00 08/23/23 20:04 21 Capillary Refill : I&O Intake and Output 08/26/23 23:59 Intake Total 1690 ml Output Total 300 ml Balance 1390 ml Intake Oral 1690 ml Output Urine Total 300 ml # Voids 6 # Bowel Movements 2 General: Alert, Oriented X3, Cooperative HEENT: Atraumatic Neck: Supple, No JVD Lungs: Clear to Auscultation Heart: Regular Rate Abdomen: Normal Bowel Sounds, Soft, No Tenderness Extremities: No Edema, Normal Pulses Skin: No Rashes, No Breakdown Neuro: Normal Speech, Sensation Intact Psych/Mental Status: Mental Status NL, Mood NL Results Lab Laboratory Tests 08/27/23 05:22: White Blood Count 12.6H, Red Blood Count 3.85L, Hemoglobin 10.7L, Hematocrit 34L , Mean Corpuscular Volume 89, Mean Corpuscular Hemoglobin 28, Mean Corpuscular Hemoglobin Concent 31L, Red Cell Distribution Width 15.7H, Platelet Count 277, Mean Platelet Volume 8.6L, Immature Granulocyte % (Auto) 5, Neutrophils (%) (Auto) 78H, Lymphocytes (%) (Auto) 10L, Monocytes (%) (Auto) 7, Eosinophils (%) (Auto) 1, Basophils (%) (Auto) 0, Neutrophils # (Auto) 9.8H, Lymphocytes # (Auto) 1.3, Monocytes # (Auto) 0.8, Eosinophils # (Auto) 0.1, Basophils # (Auto) 0.0, Immature Granulocyte # (Auto) 0.6H, Sodium Level 139, Potassium Level 4.1, Chloride Level 99, Carbon Dioxide Level 31, Anion Gap 9, Blood Urea Nitrogen 19H , Creatinine 0.78, Estimat Glomerular Filtration Rate 88, BUN/Creatinine Ratio 24, Glucose Level 86, Calcium Level 9.5, Corrected Calcium 10.1, Total Bilirubin 0.4, Aspartate Amino Transf (AST/SGOT) 20, Alanine Aminotransferase (ALT/SGPT) 23, Alkaline Phosphatase 72, Total Protein 5.6L, Albumin 3.2 Assessment/Plan Assessment/Plan Assess & Plan/Chief Complaint Severe weakness w/ multiple falls - Hx of falls including a femoral neck fracture requiring surgery - Encourage use of walker - Need for continued PT/OT Anemia - Hgb today is 10.7, was 9.9 yesterday - + stool occult blood. Hx of extensive diverticulosis + chronic steroid use - EGD and colonscopy outpatient with general surgery possibly - General surgery following, appreciate recommendations Polymyalgia rheumatica Chronic back pain - Prednisone dependent - Continue pain medications as needed Clinical Quality Measures DVT/VTE Risk/Contraindication: Contraindications-Pharm: Other *list below* Other: severe anemia MARINA TAO DO 08/28/23 0448: Subjective Subjective/Events-last exam Patient doing a lot better Labs improved Appears to be doing better and then inpatient rehab qualification Patient very complicated and advanced age and weak and may need skilled but family not interested in that Objective Exam General: Alert, Oriented X3, Cooperative, No Acute Distress Lungs: Clear to Auscultation, Normal Air Movement Heart: Regular Rate, Normal S1, Normal S2, No Murmurs Psych/Mental Status: Mental Status NL, Mood NL Assessment/Plan Assessment/Plan Assess & Plan/Chief Complaint Improved labs Evaluate for rehab tomorrow Supervisory-Addendum Brief Verification & Attestation Participated in pt care: history, MDM, physical Personally performed: exam, history, MDM, supervision of care Care discussed with: Medical Student Procedures: n/a Results interpretation: Verified all documentation Verification and Attestation of Medical Student E/M Service A medical student performed and documented this service in my presence. I rev iewed and verified all information documented by the medical student and made modifications to such information, when appropriate. I personally performed the physical exam and medical decision making. Marina Tao, Aug 28, 2023,04:47 ARCELIA DOOLEY Aug 27, 2023 10:45 MARINA TAO DO Aug 28, 2023 04:48
[2023-08-27] MEDS: ONDANSETRON INJECTION 4 MG/2 ML (SDV) IV PRN (12:50)
--- NOTE | 2023-08-27 15:53 | Occ Therapy Progress Note ---
Therapy Progress Note Patient on commode in bathroom will use call light when complete, OT will continue POC next available opportunity ABBY DURAND OT Aug 27, 2023 15:53
--- NOTE | 2023-08-27 18:26 | Progress Note - Cardiology ---
Cardiology SOAP Progress Note Subjective: No cp or palp or syncope or shortness of breath at rest No n/v/d No focal weakness Mild gen weakness Objective: I&O/Vital Signs 08/27/23 08/27/23 08/27/23 08/27/23 07:04 07:44 07:45 08:00 Pulse 62 Pulse Ox 92 O2 Delivery Nasal Cannula Room Air Nasal Cannula O2 Flow Rate 2.00 0.00 2.00 08/27/23 08/27/23 08/27/23 08/27/23 08:04 11:15 12:23 15:00 Temp 36.0 36.2 Pulse 101 74 76 Resp 16 16 B/P (MAP) 127/74 (91) 133/82 (99) Pulse Ox 94 96 91 O2 Delivery Nasal Cannula Nasal Cannula Nasal Cannula O2 Flow Rate 2.00 2.00 2.00 08/27/23 08/27/23 15:24 16:09 Temp 36.8 Pulse 78 Resp 19 B/P (MAP) 145/74 (97) Pulse Ox 91 O2 Delivery Room Air Nasal Cannula O2 Flow Rate 2.00 08/26/23 23:59 Intake Total 1190 ml Balance 1190 ml Weight (Pounds): 210 Weight (Ounces): 0.0 Weight (Calculated Kilograms): [id number] Constitutional: AAO x 3, well-developed, well-nourished Respiratory: No accessory muscle use; chest expansion is symmetric, chest is bilaterally symmetric, other (good bilat air entry) Gastrointestional: No tender; soft; No guarding, No rebound; audible bowel sounds Extremities: other ([place]'s nodes and 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; mild edema of both legs); No clubbing, No cyanosis Neurologic/Psychiatric: oriented x 3, other (mvoes all limbs equally) Skin: warm/dry; No cyanosis, No cool; other (scalp under dressing) Results/Procedures: Labs Laboratory Tests 08/27/23 05:22: White Blood Count 12.6H, Red Blood Count 3.85L, Hemoglobin 10.7L, Hematocrit 34L , Mean Corpuscular Volume 89, Mean Corpuscular Hemoglobin 28, Mean Corpuscular Hemoglobin Concent 31L, Red Cell Distribution Width 15.7H, Platelet Count 277, Mean Platelet Volume 8.6L, Immature Granulocyte % (Auto) 5, Neutrophils (%) (Auto) 78H, Lymphocytes (%) (Auto) 10L, Monocytes (%) (Auto) 7, Eosinophils (%) (Auto) 1, Basophils (%) (Auto) 0, Neutrophils # (Auto) 9.8H, Lymphocytes # (Auto) 1.3, Monocytes # (Auto) 0.8, Eosinophils # (Auto) 0.1, Basophils # (Auto) 0.0, Immature Granulocyte # (Auto) 0.6H, Sodium Level 139, Potassium Level 4.1, Chloride Level 99, Carbon Dioxide Level 31, Anion Gap 9, Blood Urea Nitrogen 19H , Creatinine 0.78, Estimat Glomerular Filtration Rate 88, BUN/Creatinine Ratio 24, Glucose Level 86, Calcium Level 9.5, Corrected Calcium 10.1, Total Bilirubin 0.4, Aspartate Amino Transf (AST/SGOT) 20, Alanine Aminotransferase (ALT/SGPT) 23, Alkaline Phosphatase 72, Total Protein 5.6L, Albumin 3.2 Laboratory Tests 08/26/23 05:19 08/27/23 05:22 A/P: Assessment: H/o vent arrhythmia in early Jul 2023 - card cath at [facility]: pt and family reports only mild CAD and normal heart function - dual chamber ICD placement by Dr Martinez at [facility] on or around 08-02-23 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
[2023-08-27] MEDS: diphenhydrAMINE 25 MG TABLET PO SCH (20:59)
[2023-08-28 03:36] VITALS: BP 167/74
[2023-08-28] MEDS: CYANOCOBALAMIN 1,000 MCG TABLET PO SCH (05:15)
[2023-08-28] MEDS: predniSONE 20 MG TABLET PO SCH (05:15)
[2023-08-28 05:53] LABS: ALBUMIN 2.8 GM/DL (3.2-4.5)
[2023-08-28 05:54] LABS: BASOPHILS % (AUTO) 0 % (0-10); EOSINOPHILS # (AUTO) 0.1 10^3/uL (0.0-0.3); EOSINOPHILS % (AUTO) 0 % (0-10); HEMATOCRIT 32 % (40-54); HEMOGLOBIN 10.1 g/dL (13.3-17.7); LYMPHOCYTES # (AUTO) 0.9 10^3/uL (1.0-4.0); LYMPHOCYTES % (AUTO) 7 % (12-44); MEAN CORPUSCULAR HEMOGLOBIN 28 pg (25-34); MEAN CORPUSCULAR HGB CONC 31 g/dL (32-36); MEAN CORPUSCULAR VOLUME 89 fL (80-99); MEAN PLATELET VOLUME 8.7 fL (9.0-12.2); MONOCYTES # (AUTO) 0.8 10^3/uL (0.0-1.0); MONOCYTES % (AUTO) 6 % (0-12); NEUTROPHILS % (AUTO) 82 % (42-75); PLATELET COUNT 229 10^3/uL (130-400); POTASSIUM 4.3 MMOL/L (3.6-5.0); WHITE BLOOD COUNT 12.3 10^3/uL (4.3-11.0)
[2023-08-28 05:56] LABS: TOTAL PROTEIN 5.1 GM/DL (6.4-8.2)
[2023-08-28 05:58] LABS: BILIRUBIN,TOTAL 0.4 MG/DL (0.1-1.0)
[2023-08-28 06:00] LABS: CREATININE SERUM 0.68 MG/DL (0.60-1.30)
[2023-08-28 07:19] VITALS: BP_SYST 121; BP_SYST 172; BP_DIAS 77; BP_DIAS 93
--- NOTE | 2023-08-28 08:01 | Physical Therapy Daily Note ---
PT Daily Note-Current Subjective Patient agrees to PT. Pain Section J - Health Conditions 1. Rarely or not at all 2. Occasionally 3. Frequently 4. Almost constantly 8. Unable to answer Pain Effect on Sleep: 1 Pain Interference with Therapy: 1 Pain Interference w/Day-to-Day: 2 Appearance SOA at rest with and without O2 with SAO2 96% RA with activity. Mental Status Patient Orientation: Normal For Age Attachments: Oxygen (2L upon entry/removed by RT to test SAO2) Transfers SCALE: Activities may be completed with or without assistive devices. 3-Iqyvnacvqm-rugqkbh completes the activity by him/herself with no assistance from a helper. 5-Set-up or Clean-up Assistance-helper sets up or cleans up; patient completes activity. [place] assists only prior to or following the activity. 4-Supervision or Touching Assistance-helper provides verbal cues and/or touching/steadying and/or contact guard assistance as patient completes activity. Assistance may be provided throughout the activity or intermittently. 3-Partial/Moderate Assistance-helper does LESS THAN HALF the effort. [place] lifts, holds or supports trunk or limbs, but provides less than half the effort. 2-Substantial/Maximal Assistance-helper does MORE THAN HALF the effort. [place] lifts or holds trunk or limbs and provides more than half the effort. 9-Dqznxazyv-rjpeqw does ALL the effort. Patient does none of the effort to complete the activity. Or, the assistance of 2 or more helpers is required for the patient to complete the activity. If activity was not attempted, code reason: 7-Patient Refused. 9-Not Applicable-not attempted and the patient did not perform the activity before the current illness, exacerbation or injury. 10-Not Attempted due to Environmental Limitations-(lack of equipment, weather restraints, etc.). 88-Not Attempted due to Medical Conditions or Safety Concerns. Lying to Sitting/Side of Bed(Q: 6 Sit to Stand (QC): 4 Chair/Xqc-sl-Qtszk Xfer(QC): 4 Toilet Transfer (QC): 4 (SBA with all mobility/toileting) Gait Training Distance: 300' Walk 10 feet (QC): 4 Walk 50 ft with 2 Turns(QC): 4 Walk 150 ft (QC): 4 Gait Assistive Device: FWW flexed bilateral knee posture with VC's to stand erect/NBOS/short step length Exercises Standing: Sit to Stand Standing Reps: 8 (VC's for hand placement on chair for safe transfers) Assessment SAO2 RA with activity 96% with RT performing study. Patient HR 120' with ambulation. Patient has noted SOA with activity. Patient up in recliner with needs met. Patient is SBA with all mobility. PT Instructional Interventionist Goals Jail Goals PT Instructional Interventionist Goals Time Frame: Sep 08, 2023 Roll Left & Right (QC): 6 Sit to Lying (QC): 6 Lying-Sitting on Side/Bed(QC): 6 Sit to Stand (QC): 6 Chair/Vgd-fq-Wiipl Xfer(QC): 6 Toilet Transfer (QC): 6 Walk 10 feet (QC): 6 Walk 50ft with 2 Turns (QC): 6 Walk 150 ft (QC): 6 1 Step (curb) (QC): 4 4 Steps (QC): 4 PT Plan Treatment/Plan Treatment Plan: Continue Plan of Care Treatment Plan: Bed Mobility, Education, Functional Activity Kim, Functional Strength, Gait, Safety, Therapeutic Exercise, Transfers Treatment Duration: Sep 08, 2023 Frequency: 6 times per week Estimated Hrs Per Day: .25 hour per day Patient and/or Family Agrees t: Yes Time Time In: 715 Time Out: 730 DATE: Aug 28, 2023 Total Billed Treatment Time: 15 Total Billed Treatment 1 visit FA 15 min HAKAN BARRY PT Aug 28, 2023 08:01
[2023-08-28] MEDS: FLUTICASONE/VILANTEROL 100/25 MCG (14 DOSES) IH SCH (08:07)
[2023-08-28] MEDS: PANTOPRAZOLE 40 MG TABLET PO SCH (08:08)
[2023-08-28] MEDS: AMIODARONE 200 MG TABLET PO SCH (08:08)
[2023-08-28] MEDS: DOCUSATE SODIUM 100 MG CAPSULE PO SCH (08:08)
[2023-08-28] MEDS: SENNOSIDES 8.6 MG TABLET PO SCH (08:08)
[2023-08-28] MEDS: DULoxetine 20 MG CAPSULE PO SCH (08:08)
[2023-08-28] MEDS: HYDROcodone/ACETAMINOPHEN 10/325 TABLET PO PRN ×2 (08:09→13:14)
[2023-08-28] MEDS: RT-ALBUTEROL SULF 2.5 MG/3 ML PRE-MIX VIAL INH SCH (08:31)
[2023-08-28 08:36] VITALS: BP 121/77
--- NOTE | 2023-08-28 09:50 | Occupational Ther Daily Note ---
OT Current Status-Daily Note Subjective Agreeable to shave in bathroom, OT set up supplies in bathroom Mental Status/Objective Patient Orientation: Person, Place, Time, Situation ADL-Treatment OT assisted in supervision of ambulation to bathroom w/ use of FWW and VCs for transfer sequences for safety. Patient stood 7 minutes at sink to wet face with warm clothe and apply shave cream, interruption of RN for medication. Patient completed grooming of face in armless standard chair w/ OT standing in line of site for observation only.Room air and no 02 needed 96 % during activity. OT provided VCs for patient to transfer off chair while he leaned on lavatory for support and placed FWW infront of him to ambulate to recliner. Therapy Code Descriptions/Definitions Functional [place] Measure: 0=Not Assessed/NA 4=Minimal Assistance 1=Total Assistance 5=Supervision or Setup 2=Maximal Assistance 6=Modified [place] 3=Moderate Assistance 7=Complete IndependenceSCALE: Activities may be completed with or without assistive devices. 4-Fezoegmvyh-ibpssun completes the activity by him/herself with no assistance from a helper. 5-Set-up or Clean-up Assistance-helper sets up or cleans up; patient completes activity. [place] assists only prior to or following the activity. 4-Supervision or Touching Assistance-helper provides verbal cues and/or touching/steadying and/or contact guard assistance as patient completes activity. Assistance may be provided throughout the activity or intermittently. 3-Partial/Moderate Assistance-helper does LESS THAN HALF the effort. [place] lifts, holds or supports trunk or limbs, but provides less than half the effort. 2-Substantial/Maximal Assistance-helper does MORE THAN HALF the effort. [place] lifts or holds trunk or limbs and provides more than half the effort. 2-Ltcdxlqyl-ojocit does ALL the effort. Patient does none of the effort to complete the activity. Or, the assistance of 2 or more helpers is required for the patient to complete the activity. If activity was not attempted, code reason: 7-Patient Refused. 9-Not Applicable-not attempted and the patient did not perform the activity before the current illness, exacerbation or injury. 10-Not Attempted due to Environmental Limitations-(lack of equipment, weather restraints, etc.). 88-Not Attempted due to Medical Conditions or Safety Concerns. Oral Hygiene (QC): 5 Toilet Transfer (QC): 5 (QC grooming code) Education OT Patient Education: Correct positioning, Modified ADL techniques, Progress toward Goal/Update tx plan, Purpose of tx/functional activities, Reviewed precautions, Safety issues, Transfer techniques, Use of adapted equipment Teaching Recipient: Patient Teaching Methods: Demonstration, Discussion Response to Teaching: Verbalize Understanding, Return Demonstration OT Usp Goals Usp Goals Eating (QC): 6 Oral Hygiene (QC): 6 Toileting Hygiene (QC): 6 Shower/Bathe Self (QC): 4 Upper Body Dressing (QC): 6 Lower Body Dressing (QC): 6 On/Off Footwear (QC): 6 1=Demonstrate adherence to instructed precautions during ADL tasks. 2=Patient will verbalize/demonstrate understanding of assistive devices/modifications for ADL. 3=Patient will improve strength/tolerance for activity to enable patient to perform ADL's. OT Education/Plan Problem List/Assessment Assessment: Decreased Activ Tolerance, Impaired Self-Care Skills Discharge Recommendations Plan/Recommendations: Continue POC Therapy Discharge Recommendati: Home & Family Treatment Plan/Plan of Care Treatment,Training & Education: Yes Patient would benefit from OT for education, treatment and training to promote independence in ADL's, mobility, safety and/or upper extremity function for ADL's. Plan of Care: ADL Retraining, Functional Mobility, Group Exercise/Act as Ind, UE Funct Exercise/Act Treatment Duration: Aug 28, 2023 Frequency: 3 times per week (3-5 times per week) Estimated Hrs Per Day: .25 hour per day Agreement: Yes Rehab Potential: Fair Time Start Time: 08:00 Stop Time: 08:19 DATE: Aug 28, 2023 Total Time Billed (hr/min): 19 Billed Treatment Time ADL 19 min ABBY DURAND OT Aug 28, 2023 09:50
[2023-08-28 11:17] VITALS: BP 120/75
[2023-08-28] MEDS ORDERED: CYAN-41 PO (13:07)
[2023-08-28] MEDS ORDERED: PANT40TA52 PO (13:07)
[2023-08-28] MEDS ORDERED: PRD20T PO (13:07)
[2023-08-28] MEDS ORDERED: ASPI-1238 PO (13:07)
[2023-08-28] MEDS ORDERED: IRON100V2 IV (13:07)
--- NOTE | 2023-08-28 13:08 | Discharge Inst-Skilled Nursing ---
Discharge Inst-Skilled NF Reconcile Patient Problems Problems Reviewed?: Yes Chief Complaint Chief complaint: Severe weakness with severe anemia HPI: This is an 83-year-old male clinic patient of Dr. 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 He resides at home with his . He has been prednisone dependent for 30 years. He reports that he needs a higher dose of steroids in order to help him with his severe muscle pain. We will restart home medications. His hemoglobin was 7.6 and he received 2 units of blood and feels much better and is hemoglobin is 9.0 Patient Instructions Patient Problems: Debility Goal: [place] Consult/Follow Up/Orders Follow Up Appt.: PCP 1 week Skilled NF Admit to: [facility] Certification (SNF) I certify that SNF services are required to be given on an inpatient basis because of the above named patient's need for correction care on a continuing basis for the conditions(s) for which he/she was receiving inpatient hospital services prior to his/her transfer to the SNF. Retirement Facility Order: Nursing Services, Development Writer-Evaluate & Treat, Physical Therapy-Evaluate & Treat Oxygen Delivery Method: Nasal Cannula Discharge Diet: No Restrictions Resuscitation Status: Full Code New & Resume Previous Orders New Medications: Cyanocobalamin (Vitamin B-12) (Vitamin B-12) 1,000 Mcg Tablet 1000 MCG PO DAILY@0700 for 90 Days, TAB Iron Sucrose Complex (Venofer) 200 Mg Iron/10 Ml Vial 200 MG IV Q48H@09, #3 EACH Pantoprazole Sodium (Pantoprazole Sodium) 40 Mg Tablet. 40 MG PO BID for 60 Days, TAB Prednisone (Prednisone) 20 Mg Tab 50 MG PO DAILY@0700 for 7 Days, TAB Changed Medications: Aspirin (Aspirin EC) 81 Mg Tablet.dr 81 MG PO DAILY for 7 Days, TAB (Medication details modified) hold until further notice but keep on list of home meds Continued Medications: Acetaminophen (Tylenol Arthritis) 650 Mg Tablet.er 650-1300 MG PO Q8H PRN for PAIN-MILD (1-4), TAB Albuterol Sulfate (Ventolin Hfa) 1 Puff Puff 2 PUFF INH Q4H PRN for SHORTNESS OF BREATH, INHALER Amiodarone HCl (Amiodarone HCl) 200 Mg Tablet 200 MG PO DAILY, TAB Diphenhydramine HCl (Sleep Aid) 50 Mg Capsule 100 MG PO HS, CAP TAKES 2 (50MG) TABS Duloxetine HCl (Duloxetine HCl) 20 Mg Capsule.dr 20 MG PO DAILY, CAP Fluticasone Propion/Salmeterol (Fluticasone-Salmeterol 250-50) 250 Mcg-50 Mcg/Dose Blst.w.dev 1 PUFF INH DAILY, EA Lidocaine (Lidocaine) 4 % Adh..patch 1-2 EACH TD DAILY PRN for PAIN-BREAKTHROUGH, PATCH APPLY TO RIBS Oxycodone HCl (Oxycodone HCl) 10 Mg Tablet 10 MG PO Q6H PRN for PAIN-SEVERE (8-10), TAB [Pain Management Pump] () UD Discontinued Medications: Omeprazole (Omeprazole) 20 Mg Capsule.dr 20 MG PO DAILY, CAP Prednisone (Prednisone) 10 Mg Tab 30 MG PO DAILY, TAB TAKES 3 (10MG) TABS Marina Cotter Aug 28, 2023 13:07 MARINA COTTER DO Aug 28, 2023 13:08
--- NOTE | 2023-08-28 13:09 | Discharge Summary ---
Diagnosis/Chief Complaint Date of Admission Aug 23, 2023 at 17:40 Date of Discharge Discharge Date: Aug 28, 2023 Discharge Diagnosis Assessment: Severe weakness with falls Severe anemia requiring 2 units of blood Hemoglobin 9.5 today History of right Valgus Impacted Femoral Neck Fracture post op surgical fixation with 3 pins 08/2022 Chronic weakness Chronic back pain Chronic pain pump in place Polymyalgia rheumatica Chronic steroid therapy Hypertension Sleep apnea History of A-fib Ulceration of scalp post MOHS surgery and skin grafting Acute nausea indicative of adrenal insufficiency we will increase dose of prednisone Shortness of breath giving Lasix and consulting cardiology Iron deficiency ordering iron infusion Low level B12 ordering B12 supplement Plan: Home meds Maintained on steroids to 60 mg Home pain medication PT and OT Consult Dr. Banuelos for Hemoccult positive stools PPI. 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 08/02/2023), diverticulitis with contained microperforation (2018), who presented to the ER on 08/23 with complaints of weakness, multiple recent falls and a decline in overall health. At the time, his Hgb was 7.6 and he received 2 units of LRBCs which increased his Hgb to 9.0 and improved his symptoms. He was admitted for further management of severe weakness with anemia. He was started on prednisone 60 mg, higher than his home dose, due to significant pain. Cardiology was consulted per patient's history of ventricular arrythmia and recommended continuation of home amiodarone as well as low dose ASA after exclusion of bleeding. On 08/24, the patient had a positive hemoccult test. General surgery was consulted and suspected gastritis, recommending outpatient EGD and colonscopy. On 08/25, the patient grew short of breath and was found to have bilateral pleural effusions. He has not been hypoxic though has been mintained on 2L of supplemental oxygen by nasal cannula intermittently. Today, the patient's anemia is stable (10.1). He continues to intermittently use 1L of supplemental oxygen by nasal canula. His strength and tolerance for ambulation has improved markedly since admission and he is thus not a candidate for inpatient rehab. After completion of ambulatory oxygen study, he will be transferred to a swingbed at [facility] for continued management. Labs (last 24 hrs) Laboratory Tests 08/23/23 18:49: Sodium Level 135, Potassium Level 4.6, Chloride Level 103, Carbon Dioxide Level 25, Anion Gap 7, Blood Urea Nitrogen 29H, Creatinine 0.74, Estimat Glomerular Filtration Rate 90, BUN/Creatinine Ratio 39, Glucose Level 140H, Lactic Acid Level 1.63, Calcium Level 8.7, Corrected Calcium 9.6, Iron Level 19L, Total Bilirubin 0.4, Aspartate Amino Transf (AST/SGOT) 25, Alanine Aminotransferase (ALT/SGPT) 26, Alkaline Phosphatase 41, Total Protein 5.3L, Albumin 2.9L, Vitamin B12 Level 257 08/23/23 18:59: White Blood Count 10.1, Red Blood Count 2.83L, Hemoglobin 7.6L, Hematocrit 25L, Mean Corpuscular Volume 87, Mean Corpuscular Hemoglobin 27, Mean Corpuscular Hemoglobin Concent 31L, Red Cell Distribution Width 15.6H, Platelet Count 231, Mean Platelet Volume 8.9L, Immature Granulocyte % (Auto) 5, Neutrophils (%) (Auto) 91H, Lymphocytes (%) (Auto) 2L, Monocytes (%) (Auto) 3, Eosinophils (%) (Auto) 0, Basophils (%) (Auto) 0, Neutrophils # (Auto) 9.2H, Lymphocytes # (Auto) 0.2L, Monocytes # (Auto) 0.3, Eosinophils # (Auto) 0.0, Basophils # (Auto) 0.0, Immature Granulocyte # (Auto) 0.5H, Neutrophils % (Manual) 94, Lymphocytes % (Manual) 5, Monocytes % (Manual) 1, Polychromasia SLIGHT, Hypochromasia MODERATE, Poikilocytosis SLIGHT, Microcytosis MODERATE 08/23/23 23:35: Urine Color YELLOW, Urine Clarity CLEAR, Urine pH 5.5, Urine Specific Souris 1.020, Urine Protein TRACEH, Urine Glucose (UA) NEGATIVE, Urine Ketones NEGATIVE, Urine Nitrite NEGATIVE, Urine Bilirubin NEGATIVE, Urine Urobilinogen 0.2, Urine Leukocyte Esterase NEGATIVE, Urine RBC (Auto) NEGATIVE, Urine RBC NO NE, Urine WBC 0-2, Urine Squamous Epithelial Cells NEG, Urine Crystals PRESENTH, Urine Amorphous Sediment FEW FIFI URATESH, Urine Bacteria TRACE, Urine Casts PRESENT, Urine Hyaline Casts 0-2H, Urine Mucus MODERATEH, Urine Culture Indicated NO 08/24/23 02:00: Stool Occult Blood Immunoassay POSITIVEH 08/24/23 05:11: White Blood Count 11.4H, Red Blood Count 3.28L, Hemoglobin 9.0L, Hematocrit 28L, Mean Corpuscular Volume 87, Mean Corpuscular Hemoglobin 27, Mean Corpuscular Hemoglobin Concent 32, Red Cell Distribution Width 15.4H, Platelet Count 224, Mean Platelet Volume 8.7L, Immature Granulocyte % (Auto) 4, Neutrophils (%) (Auto) 80H, Lymphocytes (%) (Auto) 8L, Monocytes (%) (Auto) 8, Eosinophils (%) (Auto) 0, Basophils (%) (Auto) 0, Neutrophils # (Auto) 9.2H, Lymphocytes # (Auto) 0.9L, Monocytes # (Auto) 0.9, Eosinophils # (Auto) 0.0, Basophils # (A uto) 0.0, Immature Granulocyte # (Auto) 0.5H, Sodium Level 138, Potassium Level 4.2, Chloride Level 103, Carbon Dioxide Level 27, Anion Gap 8, Blood Urea Nitrogen 24H, Creatinine 0.70, Estimat Glomerular Filtration Rate 91, BUN/Creatinine Ratio 34, Glucose Level 99, Calcium Level 8.6, Corrected Calcium 9.6, Total Bilirubin 0.7, Aspartate Amino Transf (AST/SGOT) 23, Alanine Aminotransferase (ALT/SGPT) 23, Alkaline Phosphatase 44, Total Protein 5.1L, Albumin 2.8L 08/25/23 05:20: White Blood Count 11.6H, Red Blood Count 3.44L, Hemoglobin 9.5L, Hematocrit 30L, Mean Corpuscular Volume 88, Mean Corpuscular Hemoglobin 28, Mean Corpuscular Hemoglobin Concent 31L, Red Cell Distribution Width 15.7H, Platelet Count 243, Mean Platelet Volume 8.9L, Immature Granulocyte % (Auto) 4, Neutrophils (%) (Auto) 82H, Lymphocytes (%) (Auto) 7L, Monocytes (%) (Auto) 7, Eosinophils (%) (Auto) 0, Basophils (%) (Auto) 0, Neutrophils # (Auto) 9.5H, Lymphocytes # (Auto) 0.8L, Monocytes # (Auto) 0.8, Eosinophils # (Auto) 0.0, Basophils # (Auto) 0.0, Immature Granulocyte # (Auto) 0.5H, Sodium Level 138, Potassium Level 4.6, Chloride Level 104, Carbon Dioxide Level 28, Anion Gap 6, Blood Urea Nitrogen 19H, Creatinine 0.66, Estimat Glomerular Filtration Rate 93, BUN/Creatinine Ratio 29, Glucose Level 98, Calcium Level 9.0, Corrected Calcium 9.9, Total Bilirubin 0.4, Aspartate Amino Transf (AST/SGOT) 19, Alanine Aminotransferase (ALT/SGPT) 21, Alkaline Phosphatase 50, Total Protein 5.2L, Albumin 2.9L, B-Type Natriuretic Peptide 90.0 08/26/23 05:19: White Blood Count 10.3, Red Blood Count 3.61L, Hemoglobin 9.9L, Hematocrit 32L, Mean Corpuscular Volume 89, Mean Corpuscular Hemoglobin 27, Mean Corpuscular Hemoglobin Concent 31L, Red Cell Distribution Width 15.6H, Platelet Count 248, Mean Platelet Volume 8.4L, Immature Granulocyte % (Auto) 4, Neutrophils (%) (Auto) 78H, Lymphocytes (%) (Auto) 10L, Monocytes (%) (Auto) 7, Eosinophils (%) (Auto) 1, Basophils (%) (Auto) 0, Neutrophils # (Auto) 7.9H, Lymphocytes # (Auto) 1.1, Monocytes # (Auto) 0.7, Eosinophils # (Auto) 0.1, Basophils # (Auto) 0.0, Immature Granulocyte # (Auto) 0.4H, Sodium Level 138, Potassium Level 4.0, Chloride Level 100, Carbon Dioxide Level 31, Anion Gap 7, Blood Urea Nitrogen 24H, Creatinine 0.72, Estimat Glomerular Filtration Rate 91, BUN/Creatinine Ratio 33, Glucose Level 88, Calcium Level 9.1, Corrected Calcium 9.9, Total Bilirubin 0.4, Aspartate Amino Transf (AST/SGOT) 21, Alanine Aminotransferase (ALT/SGPT) 23, Alkaline Phosphatase 64, Total Protein 5.4L, Albumin 3.0L 08/27/23 05:22: White Blood Count 12.6H, Red Blood Count 3.85L, Hemoglobin 10.7L, Hematocrit 34L , Mean Corpuscular Volume 89, Mean Corpuscular Hemoglobin 28, Mean Corpuscular Hemoglobin Concent 31L, Red Cell Distribution Width 15.7H, Platelet Count 277, Mean Platelet Volume 8.6L, Immature Granulocyte % (Auto) 5, Neutrophils (%) (Auto) 78H, Lymphocytes (%) (Auto) 10L, Monocytes (%) (Auto) 7, Eosinophils (%) (Auto) 1, Basophils (%) (Auto) 0, Neutrophils # (Auto) 9.8H, Lymphocytes # (Auto) 1.3, Monocytes # (Auto) 0.8, Eosinophils # (Auto) 0.1, Basophils # (Auto) 0.0, Immature Granulocyte # (Auto) 0.6H, Sodium Level 139, Potassium Level 4.1, Chloride Level 99, Carbon Dioxide Level 31, Anion Gap 9, Blood Urea Nitrogen 19H , Creatinine 0.78, Estimat Glomerular Filtration Rate 88, BUN/Creatinine Ratio 24, Glucose Level 86, Calcium Level 9.5, Corrected Calcium 10.1, Total Bilirubin 0.4, Aspartate Amino Transf (AST/SGOT) 20, Alanine Aminotransferase (ALT/SGPT) 23, Alkaline Phosphatase 72, Total Protein 5.6L, Albumin 3.2 08/28/23 05:20: White Blood Count 12.3H, Red Blood Count 3.61L, Hemoglobin 10.1L, Hematocrit 32L , Mean Corpuscular Volume 89, Mean Corpuscular Hemoglobin 28, Mean Corpuscular Hemoglobin Concent 31L, Red Cell Distribution Width 15.9H, Platelet Count 229, Mean Platelet Volume 8.7L, Immature Granulocyte % (Auto) 5, Neutrophils (%) (Aut o) 82H, Lymphocytes (%) (Auto) 7L, Monocytes (%) (Auto) 6, Eosinophils (%) (Auto) 0, Basophils (%) (Auto) 0, Neutrophils # (Auto) 10.0H, Lymphocytes # (Auto) 0.9L, Monocytes # (Auto) 0.8, Eosinophils # (Auto) 0.1, Basophils # (Auto) 0.0, Immature Granulocyte # (Auto) 0.6H, Sodium Level 137, Potassium Level 4.3, Chloride Level 99, Carbon Dioxide Level 32, Anion Gap 6, Blood Urea Nitrogen 19H, Creatinine 0.68, Estimat Glomerular Filtration Rate 92, BUN/Creatinine Ratio 28, Glucose Level 90, Calcium Level 9.0, Corrected Calcium 10.0, Total Bilirubin 0.4, Aspartate Amino Transf (AST/SGOT) 18, Alanine Aminotransferase (ALT/SGPT) 20, Alkaline Phosphatase 71, Total Protein 5.1L, Albumin 2.8L Pending Labs Laboratory Tests 08/23/23 18:49: Sodium Level 135, Potassium Level 4.6, Chloride Level 103, Carbon Dioxide Level 25, Anion Gap 7, Blood Urea Nitrogen 29, Creatinine 0.74, Estimat Glomerular Filtration Rate 90, BUN/Creatinine Ratio 39, Glucose Level 140, Lactic Acid Level 1.63, Calcium Level 8.7, Corrected Calcium 9.6, Iron Level 19, Total Bilirubin 0.4, Aspartate Amino Transf (AST/SGOT) 25, Alanine Aminotransferase (ALT/SGPT) 26, Alkaline Phosphatase 41, Total Protein 5.3, Albumin 2.9, Vitamin B12 Level 257 08/23/23 18:59: White Blood Count 10.1, Red Blood Count 2.83, Hemoglobin 7.6, Hematocrit 25, Mean Corpuscular Volume 87, Mean Corpuscular Hemoglobin 27, Mean Corpuscular Hemoglobin Concent 31, Red Cell Distribution Width 15.6, Platelet Count 231, Mean Platelet Volume 8.9, Immature Granulocyte % (Auto) 5, Neutrophils (%) (Auto) 91, Lymphocytes (%) (Auto) 2, Monocytes (%) (Auto) 3, Eosinophils (%) (Auto) 0, Basophils (%) (Auto) 0, Neutrophils # (Auto) 9.2, Lymphocytes # (Auto) 0.2, Monocytes # (Auto) 0.3, Eosinophils # (Auto) 0.0, Basophils # (Auto) 0.0, Immature Granulocyte # (Auto) 0.5, Neutrophils % (Manual) 94, Lymphocytes % (Manual) 5, Monocytes % (Manual) 1, Polychromasia SLIGHT, Hypochromasia MODERATE, Poikilocytosis SLIGHT, Microcytosis MODERATE 08/23/23 23:35: Urine Color YELLOW, Urine Clarity CLEAR, Urine pH 5.5, Urine Specific Souris 1.020, Urine Protein TRACE, Urine Glucose (UA) NEGATIVE, Urine Ketones NEGATIVE, Urine Nitrite NEGATIVE, Urine Bilirubin NEGATIVE, Urine Urobilinogen 0.2, Urine Leukocyte Esterase NEGATIVE, Urine RBC (Auto) NEGATIVE, Urine RBC NONE, Urine WBC 0-2, Urine Squamous Epithelial Cells NEG, Urine Crystals PRESENT, Urine Amorphous Sediment FEW FIFI URATES, Urine Bacteria TRACE, Urine Casts PRESENT, Urine Hyaline Casts 0-2, Urine Mucus MODERATE, Urine Culture Indicated NO 08/24/23 02:00: Stool Occult Blood Immunoassay POSITIVE 08/24/23 05:11: White Blood Count 11.4, Red Blood Count 3.28, Hemoglobin 9.0, Hematocrit 28, Mean Corpuscular Volume 87, Mean Corpuscular Hemoglobin 27, Mean Corpuscular Hemoglobin Concent 32, Red Cell Distribution Width 15.4, Platelet Count 224, Mean Platelet Volume 8.7, Immature Granulocyte % (Auto) 4, Neutrophils (%) (Auto) 80, Lymphocytes (%) (Auto) 8, Monocytes (%) (Auto) 8, Eosinophils (%) (Auto) 0, Basophils (%) (Auto) 0, Neutrophils # (Auto) 9.2, Lymphocytes # (Auto) 0.9, Monocytes # (Auto) 0.9, Eosinophils # (Auto) 0.0, Basophils # (Auto) 0.0, Immature Granulocyte # (Auto) 0.5, Sodium Level 138, Potassium Level 4.2, Chloride Level 103, Carbon Dioxide Level 27, Anion Gap 8, Blood Urea Nitrogen 24, Creatinine 0.70, Estimat Glomerular Filtration Rate 91, BUN/Creatinine Ratio 34, Glucose Level 99, Calcium Level 8.6, Corrected Calcium 9.6, Total Bilirubin 0.7, Aspartate Amino Transf (AST/SGOT) 23, Alanine Aminotransferase (ALT/SGPT) 23, Alkaline Phosphatase 44, Total Protein 5.1, Albumin 2.8 08/25/23 05:20: White Blood Count 11.6, Red Blood Count 3.44, Hemoglobin 9.5, Hematocrit 30, Mean Corpuscular Volume 88, Mean Corpuscular Hemoglobin 28, Mean Corpuscular Hemoglobin Concent 31, Red Cell Distribution Width 15.7, Platelet Count 243, Mean Platelet Volume 8.9, Immature Granulocyte % (Auto) 4, Neutrophils (%) (Auto) 82, Lymphocytes (%) (Auto) 7, Monocytes (%) (Auto) 7, Eosinophils (%) (Auto) 0, Basophils (%) (Auto) 0, Neutrophils # (Auto) 9.5, Lymphocytes # (Auto) 0.8, Monocytes # (Auto) 0.8, Eosinophils # (Auto) 0.0, Basophils # (Auto) 0.0, Immature Granulocyte # (Auto) 0.5, Sodium Level 138, Potassium Level 4.6, Chloride Level 104, Carbon Dioxide Level 28, Anion Gap 6, Blood Urea Nitrogen 19, Creatinine 0.66, Estimat Glomerular Filtration Rate 93, BUN/Creatinine Ratio 29, Glucose Level 98, Calcium Level 9.0, Corrected Calcium 9.9, Total Bilirubin 0.4, Aspartate Amino Transf (AST/SGOT) 19, Alanine Aminotransferase (ALT/SGPT) 21, Alkaline Phosphatase 50, Total Protein 5.2, Albumin 2.9, B-Type Natriuretic Peptide 90.0 08/26/23 05:19: White Blood Count 10.3, Red Blood Count 3.61, Hemoglobin 9.9, Hematocrit 32, Mean Corpuscular Volume 89, Mean Corpuscular Hemoglobin 27, Mean Corpuscular Hemoglobin Concent 31, Red Cell Distribution Width 15.6, Platelet Count 248, Mean Platelet Volume 8.4, Immature Granulocyte % (Auto) 4, Neutrophils (%) (Auto) 78, Lymphocytes (%) (Auto) 10, Monocytes (%) (Auto) 7, Eosinophils (%) (Auto) 1, Basophils (%) (Auto) 0, Neutrophils # (Auto) 7.9, Lymphocytes # (Auto) 1.1, Monocytes # (Auto) 0.7, Eosinophils # (Auto) 0.1, Basophils # (Auto) 0.0, Immature Granulocyte # (Auto) 0.4, Sodium Level 138, Potassium Level 4.0, Chloride Level 100, Carbon Dioxide Level 31, Anion Gap 7, Blood Urea Nitrogen 24, Creatinine 0.72, Estimat Glomerular Filtration Rate 91, BUN/Creatinine Ratio 33, Glucose Level 88, Calcium Level 9.1, Corrected Calcium 9.9, Total Bilirubin 0.4, Aspartate Amino Transf (AST/SGOT) 21, Alanine Aminotransferase (ALT/SGPT) 23, Alkaline Phosphatase 64, Total Protein 5.4, Albumin 3.0 08/27/23 05:22: White Blood Count 12.6, Red Blood Count 3.85, Hemoglobin 10.7, Hematocrit 34, Mean Corpuscular Volume 89, Mean Corpuscular Hemoglobin 28, Mean Corpuscular Hemoglobin Concent 31, Red Cell Distribution Width 15.7, Platelet Count 277, Mean Platelet Volume 8.6, Immature Granulocyte % (Auto) 5, Neutrophils (%) (Auto) 78, Lymphocytes (%) (Auto) 10, Monocytes (%) (Auto) 7, Eosinophils (%) (Auto) 1, Basophils (%) (Auto) 0, Neutrophils # (Auto) 9.8, Lymphocytes # (Auto) 1.3, Monocytes # (Auto) 0.8, Eosinophils # (Auto) 0.1, Basophils # (Auto) 0.0, Immature Granulocyte # (Auto) 0.6, Sodium Level 139, Potassium Level 4.1, Chlor chong Level 99, Carbon Dioxide Level 31, Anion Gap 9, Blood Urea Nitrogen 19, Creatinine 0.78, Estimat Glomerular Filtration Rate 88, BUN/Creatinine Ratio 24, Glucose Level 86, Calcium Level 9.5, Corrected Calcium 10.1, Total Bilirubin 0.4, Aspartate Amino Transf (AST/SGOT) 20, Alanine Aminotransferase (ALT/SGPT) 23, Alkaline Phosphatase 72, Total Protein 5.6, Albumin 3.2 08/28/23 05:20: White Blood Count 12.3, Red Blood Count 3.61, Hemoglobin 10.1, Hematocrit 32, Mean Corpuscular Volume 89, Mean Corpuscular Hemoglobin 28, Mean Corpuscular Hemoglobin Concent 31, Red Cell Distribution Width 15.9, Platelet Count 229, Mean Platelet Volume 8.7, Immature Granulocyte % (Auto) 5, Neutrophils (%) (Auto) 82, Lymphocytes (%) (Auto) 7, Monocytes (%) (Auto) 6, Eosinophils (%) (Auto) 0, Basophils (%) (Auto) 0, Neutrophils # (Auto) 10.0, Lymphocytes # (Auto) 0.9, Monocytes # (Auto) 0.8, Eosinophils # (Auto) 0.1, Basophils # (Auto) 0.0, Immature Granulocyte # (Auto) 0.6, Sodium Level 137, Potassium Level 4.3, Chloride Level 99, Carbon Dioxide Level 32, Anion Gap 6, Blood Urea Nitrogen 19, Creatinine 0.68, Estimat Glomerular Filtration Rate 92, BUN/Creatinine Ratio 28, Glucose Level 90, Calcium Level 9.0, Corrected Calcium 10.0, Total Bilirubin 0.4, Aspartate Amino Transf (AST/SGOT) 18, Alanine Aminotransferase (ALT/SGPT) 20, Alkaline Phosphatase 71, Total Protein 5.1, Albumin 2.8 Discharge Home Medications: Active Scripts Active Vitamin B-12 (Cyanocobalamin (Vitamin B-12)) 1,000 Mcg Tablet 1,000 Mcg PO DAILY@0700 90 Days Prednisone 20 Mg Tab 50 Mg PO DAILY@0700 7 Days Pantoprazole Sodium 40 Mg Tablet.dr 40 Mg PO BID 60 Days Venofer (Iron Sucrose Complex) 200 Mg Iron/10 Ml Vial 200 Mg IV Q48H@09 Aspirin EC (Aspirin) 81 Mg Tablet.dr 81 Mg PO DAILY 7 Days hold until further notice but keep on list of home meds Reported [Pain Management Pump] UD Lidocaine 4 % Adh..patch 1-2 Each TD DAILY PRN APPLY TO RIBS Sleep Aid (Diphenhydramine HCl) 50 Mg Capsule 100 Mg PO HS TAKES 2 (50MG) TABS Tylenol Arthritis (Acetaminophen) 650 Mg Tablet.er 650-1,300 Mg PO Q8H PRN Fluticasone-Salmeterol 250-50 (Fluticasone Propion/Salmeterol) 250 Mcg-50 Mcg/Dose Blst.w.dev 1 Puff INH DAILY Amiodarone HCl 200 Mg Tablet 200 Mg PO DAILY Duloxetine HCl 20 Mg Capsule.dr 20 Mg PO DAILY Oxycodone HCl 10 Mg Tablet 10 Mg PO Q6H PRN Ventolin Hfa (Albuterol Sulfate) 1 Puff Puff 2 Puff INH Q4H PRN Instructions to patient/family Please see electronic discharge instructions given to patient. Clinical Quality Measures DVT/VTE Risk/Contraindication: Contraindications-Pharm: Other *list below* Other: severe anemia BARRON TAO DO Aug 28, 2023 13:09
--- NOTE | 2023-08-28 14:03 | Progress Note ---
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 At the time, his Hgb was 7.6 and he received 2 units of LRBCs which increased his Hgb to 9.0 and improved his symptoms. He was admitted for further management of severe weakness with anemia. He was started on prednisone 60 mg, higher than his home dose, due to significant pain. Cardiology was consulted per patient's history of ventricular arrythmia and recommended continuation of home amiodarone as well as low dose ASA after exclusion of bleeding. On 08/24, the patient had a positive hemoccult test. General surgery was consulted and suspected gastritis, recommending outpatient EGD and colonscopy. On 08/25, the patient grew short of breath and was found to have bilateral pleural effusions. He has not been hypoxic though has been mintained on 2L of supplemental oxygen by nasal cannula intermittently. Today, the patient's anemia is stable (10.1). He continues to intermittently use 1L of supplemental oxygen by nasal canula. His strength and tolerance for ambulation has improved markedly since admission and he is thus not a candidate for inpatient rehab. After completion of ambulatory oxygen study, he will be transferred to a swingbed at [facility] for continued management. Review of Systems Pulmonary: No Dyspnea Gastrointestinal: No: Nausea, Vomiting, Abdominal Pain Objective Exam Last Set of Vital Signs Vital Signs Date Time Temp Pulse Resp B/P (MAP) Pulse Ox O2 Delivery O2 Flow Rate FiO2 08/28/23 11:17 36.2 73 17 120/75 (90) 92 Nasal Cannula 2.00 08/28/23 08:36 21 Capillary Refill : I&O Intake and Output 08/27/23 23:59 Intake Total 1800 ml Balance 1800 ml Intake Oral 1800 ml # Voids 6 # Bowel Movements 2 General: Alert, Oriented X3 Heart: Regular Rate Abdomen: Normal Bowel Sounds Psych/Mental Status: Mental Status NL, Mood NL Results Lab Laboratory Tests 08/28/23 05:20: White Blood Count 12.3H, Red Blood Count 3.61L, Hemoglobin 10.1L, Hematocrit 32L , Mean Corpuscular Volume 89, Mean Corpuscular Hemoglobin 28, Mean Corpuscular Hemoglobin Concent 31L, Red Cell Distribution Width 15.9H, Platelet Count 229, Mean Platelet Volume 8.7L, Immature Granulocyte % (Auto) 5, Neutrophils (%) (Auto) 82H, Lymphocytes (%) (Auto) 7L, Monocytes (%) (Auto) 6, Eosinophils (%) (Auto) 0, Basophils (%) (Auto) 0, Neutrophils # (Auto) 10.0H, Lymphocytes # (Auto) 0.9L, Monocytes # (Auto) 0.8, Eosinophils # (Auto) 0.1, Basophils # (Auto) 0.0, Immature Granulocyte # (Auto) 0.6H, Sodium Level 137, Potassium Level 4.3, Chloride Level 99, Carbon Dioxide Level 32, Anion Gap 6, Blood Urea Nitrogen 19H, Creatinine 0.68, Estimat Glomerular Filtration Rate 92, BUN/Creatinine Ratio 28, Glucose Level 90, Calcium Level 9.0, Corrected Calcium 10.0, Total Bilirubin 0.4, Aspartate Amino Transf (AST/SGOT) 18, Alanine Aminotransferase (ALT/SGPT) 20, Alkaline Phosphatase 71, Total Protein 5.1L, Albumin 2.8L Assessment/Plan Assessment/Plan Assess & Plan/Chief Complaint Severe weakness w/ multiple falls - Hx of falls including a femoral neck fracture requiring surgery - Encourage use of walker - Need for continued PT/OT Anemia - Hgb today is 10.1; 10.7 yesterday, 7.6 on admission - s/p 2 transfusions of LRBCs (08/23 - 08/25) - + stool occult blood. Hx of extensive diverticulosis + chronic steroid use - General surgery following, appreciate recs. Possible colonscopy and EGD outpatient Bilateral pleural effusions (08/25) - Not oxygen dependent at home - Without hypoxia though using 2 L by NC intermittently - Will obtain ambulatory oxygen study today H/o of ventricular arrythmia - s/p ICD placement at [facility] _ - Rhythm and rate controlled at this time - Cardiolgy consulted; recs appreciated - Continue amiodarone 200 mg - Resume ow dose ASA after bleeding excluding Polymyalgia rheumatica Chronic back pain - Prednisone dependent; on 30 mg daily at home - Continue prednisone 50 mg - Continue other pain medications as needed Clinical Quality Measures DVT/VTE Risk/Contraindication: Contraindications-Pharm: Other *list below* Other: severe anemia MARINA TAO DO 08/29/23 0456: Subjective Time Seen by a Provider: 11:00 Objective Exam General: Alert, Oriented X3 Heart: Regular Rate Abdomen: Normal Bowel Sounds Supervisory-Addendum Brief Verification & Attestation Participated in pt care: history, MDM, physical Personally performed: exam, history, MDM, supervision of care Care discussed with: Medical Student Procedures: n/a Results interpretation: Verified all documentation Verification and Attestation of Medical Student E/M Service A medical student performed and documented this service in my presence. I reviewed and verified all information documented by the medical student and made modifications to such information, when appropriate. I personally performed the physical exam and medical decision making. Marina Tao, Aug 29, 2023,04:56 JODI SANTANA Aug 28, 2023 14:03 MARINA TAO DO Aug 29, 2023 04:56
[2023-08-28 14:22] VITALS: BP 120/75
[2023-08-28] MEDS ORDERED: RT-ALBUTEROL SULF 2.5 MG/3 ML PRE-MIX VIAL INH SCH (21:00)
== END 2023-08-28 14:28 | DRG 812 ==
LOC: 4TH 17:40
PROVIDERS: ADMIT Internal Medicine; ATTEND Internal Medicine
DX: D64.9 Anemia, unspecified (principal); E27.40 Unspecified adrenocortical insufficiency; M35.3 Polymyalgia rheumatica; G89.29 Other chronic pain; Z95.810 Presence of automatic (implantable) cardiac defibrillator; I49.9 Cardiac arrhythmia, unspecified; M54.9 Dorsalgia, unspecified; Z79.52 Long term (current) use of systemic steroids; I10 Essential (primary) hypertension; G47.30 Sleep apnea, unspecified; I48.91 Unspecified atrial fibrillation; E61.1 Iron deficiency; Z85.46 Personal history of malignant neoplasm of prostate; J45.909 Unspecified asthma, uncomplicated; E78.00 Pure hypercholesterolemia, unspecified; M41.9 Scoliosis, unspecified; M19.90 Unspecified osteoarthritis, unspecified site; Z85.828 Personal history of other malignant neoplasm of skin; Z85.51 Personal history of malignant neoplasm of bladder
CPT/HCPCS: 36415; 71045; 80053; 81000; 82274; 82607; 83540; 83605; 83880; 85007; 85025; 85027; 86850; 86900; 86901; 86920; 93005; 94640; 94664; 94760